=== PATIENT | female | born 1945 | race Two or more races ===

== ENCOUNTER 2020-02-12 08:03 | Outpatient (REF) | payer MEDICARE, SELFPAY ==
--- NOTE | 2020-02-12 07:59 | FL_ITS ---
EXAMINATION: FLUOROSCOPIC ESOPHAGRAM, BARIUM SWALLOW CLINICAL INFORMATION: Dysphagia. COMPARISON: None. TECHNIQUE: Swallowing examination of the cervical esophagus was performed in the AP and lateral positions with self administration of thick, high density barium. Following the self administration of effervescent granules, thoracic esophagography was performed with the patient in upright and recumbent positions with thin barium. A 12.7 mm barium tablet was also administered. FLUOROSCOPY TIME: 2 minutes. DOSE AREA PRODUCT: 10.542 Gy-cm2 (huynh-centimeter squared). FINDINGS: Pharynx and Cervical Esophagus: Examination demonstrates normal motility without stricturing, diverticula, or obstruction. No significant pooling of contrast material in the valleculae or piriform sinuses. No cricopharyngeal abnormalities are noted. The pharynx and cervical spine are normal in appearance. Thoracic Esophagus: Motility of the thoracic esophagus is slightly decreased during swallowing with a few low amplitude tertiary contractions. There is focal circumferential narrowing of the distal esophagus with smooth margins, best seen on image 5/14 of series 3. This occurs at the superior margin of a small hiatal hernia and may correspond to a Schatzki's ring. A pill does not pass distal to this narrowing. There was no evidence of esophageal mass or ulceration. There is no evidence of gastroesophageal reflux demonstrated on this exam. Negative water siphon test. IMPRESSION: Small sliding-type hiatal hernia with a smoothly marginated circumferential narrowing along its proximal margin, most likely corresponding to a Schatzki's ring. This prevented passage of a 12.7 cm barium tablet and likely produces symptomatic partial obstruction/delay in the passage of food.
== END 2020-02-12 08:04 | disposition home or self-care (01) ==
LOC: HO.XRAY 08:03
PROVIDERS: PCP Nurse Practitioner Family; Visit Provider Otolaryngology
DX: R13.10 Dysphagia, unspecified (principal)
CPT/HCPCS: 74220

== ENCOUNTER 2020-02-29 17:33 | Emergency (ER) | payer MEDICARE, SELFPAY ==
[2020-02-29 17:46] VITALS: BP 139/71; BP 141/53; PULSE 61; PULSE 66; RESP 16; TEMP 37.2; O2SAT 97; O2SAT 99; BMI 28.9
--- NOTE | 2020-02-29 18:17 | ECG_ITS ---
Test Reason : CHEST PAIN Blood Pressure : / mmHG Vent. Rate : 055 BPM Atrial Rate : 055 BPM P-R Int : 130 ms QRS Dur : 074 ms QT Int : 420 ms P-R-T Axes : 053 020 023 degrees QTc Int : 401 ms Sinus bradycardia Otherwise normal ECG When compared with ECG of 19-JAN-2020 16:53, No significant change was found Referred By: Thais Desai Electronically Signed By:HILDA STEWART MD
--- NOTE | 2020-02-29 18:18 | XR_ITS ---
EXAMINATION: XR chest 1V CLINICAL INFORMATION: Chest pain COMPARISON: Prior chest x-ray August 2018 TECHNIQUE: XR chest 1V Tubes and lines: None Lungs and Asha: Both lungs are clear. Pleura: Normal. Costophrenic angles are sharp. No pneumothorax. Heart and mediastinum: The mediastinum is within normal limits.. Bones: There are old left anterolateral fifth rib fracture. There are degenerative changes of AC joints and shoulders. XR/XR chest 1V IMPRESSION: Probably old left fifth rib fracture. 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
--- NOTE | 2020-02-29 18:20 | ED.GENADULT ---
HPI - General Adult General Chief complaint: General Medical Stated complaint: CHILLS/BODYACHE Time Seen by Provider: 02/29/20 17:48 Source: patient and certified court/medical interpreter History of Present Illness HPI narrative: patient is a 74-year-old female with past medical history of hypertension, asthma and BPPV complaining of headache, chest pain, shortness of breath for 30 minutes prior to arrival to ED. She also states she has chills and body aches for a few days. Patient states she has an inhaler and an albuterol nebulizer at home but she did not use either treatment before coming into the ED. Patient denies nausea vomiting diarrhea fevers. Denies cough, congestion or any URI symptoms. Patient states she has been eating and drinking normally. she states she typically takes meclizine for her dizziness but did not take it today but denies dizziness or lightheadedness. she states her chest pain is on the left central chest and usually radiates to her arm. She describes the pain as a burning sensation. Related Data Previous Rx's Medication Instructions Recorded sennosides 8.6 mg capsule 17.2 mg PO BEDTIME 30 Days #60 cap 02/17/20 Allergies Allergy/AdvReac Type Severity Reaction Status Date / Time codeine [CODEINE] Allergy Intermediate RASH Verified 02/29/20 17:53 ibuprofen [From MOTRIN] Allergy Intermediate RASH Verified 02/29/20 17:53 Penicillins [PENICILLINS] Allergy Intermediate RASH Verified 02/29/20 17:53 motrin Allergy Unknown rash, Uncoded 01/01/20 00:00 swelling PCN Allergy Unknown rash, Uncoded 01/01/20 00:00 swelling Review of Systems Review of Systems: Yes all other systems are reviewed and are negative [facility] Past Medical History Attestation statement: The following information was validated with the patient. Medical History (Updated 02/29/20 @ 21:46 by ROSIBEL Anderson) Asthma Kidney disease Social History Social History Advance Directives: Yes Advance Directives on File: Yes Advance Directives Date on File: 02/12/20 Physical Exam Vital Signs: Vital Signs: Vital Signs Temp Pulse Resp BP Pulse Ox 02/29/20 22:10 98.4 F 63 15 119/85 98 02/29/20 17:46 98.9 F 61 16 141/53 H 97 Body Mass Index 28.9 Const: General: cooperative, healthy appearing, comfortable and no acute distress Nutritional Appearance: obese Orientation/consciousness: patient oriented x3 Limitations: language barrier ( certified court/medical interpreter present) HENMT: Head: Yes normal to inspection Face and sinus: Yes normal facial exam Eyes: General: appearance normal, both eyes and all related structures Neck: Neck: Yes normal visual inspection, Yes full ROM, Yes trachea midline and Yes supple Resp: Effort & Inspection: normal respiratory effort and able to speak in complete sentences Auscultation: clear to auscultation bilaterally, no crackles, no rales, no rhonchi and no wheezes Cardio: Rate: regular rate Rhythm: regular rhythm Heart sounds: S1 normal heart sound present and S2 normal heart sound present GI: Inspection: Yes normal to inspection Palpation (GI): Soft to palpation, nontender, no guarding and No hepatosplenomegaly present Auscultation: normal bowel sounds Skin: General skin exam: no rashes or lesions noted Neuro: General: patient oriented x3 Extrem: General: Yes no pedal edema Psych: Appearance: grossly normal Course Course Course Narrative: this is a 74-year-old female with past medical history of asthma, BPPV and hypertension complaining of a headache, chest pain and shortness of breath x 1 hour. vital signs are stable including O2 sat of 98% on room air. patient is speaking in full sentences, breathing easily. Will get EKG, labs check troponins and reassess. labs WNL, EKG sinus shelly, troponin neg, patient reporting improved headache after Tylenol and fluids. Explained to patient she will get a phone call in the next couple of days with her COVID test result. likely viral syndrome. Medical Decision Making [facility] Narrative Medical decision making narrative: 74-year-old female complaining chest pain, headache, body aches, EKG sinus bradycardia, negative troponins, negative BNP, all labs WNL, covid pending. Will give fluids. Lab Data Lab results reviewed: Yes I reviewed the patient's lab results. Lab results narrative: UA negative Result diagrams: 02/29/20 19:46 02/29/20 19:46 Labs: Lab Results 02/29/20 02/29/20 02/29/20 Range/Units 19:46 19:46 19:46 WBC 10.3 (4.8-10.8) X10*3/uL RBC 4.17 L (4.20-5.50) X10*6/uL Hgb 12.8 (12.0-16.0) g/dl Hct 38.5 (37-47) % MCV 92.3 (80-98) fL MCH 30.7 (27.0-33.0) pg MCHC 33.2 (31.0-35.0) g/dl RDW 13.2 (11.0-16.0) % Plt Count 191 (160-400) X10*3/uL MPV 10.3 (9.4-12.3) fL Immature Gran % (Auto) 0.3 (0.0-0.4) % Neut % (Auto) 60.2 (45-73) % Lymph % (Auto) 28.6 (20-40) % Holmes % (Auto) 4.8 (2-11) % Eos % (Auto) 5.7 H (0-4) % Baso % (Auto) 0.4 (0-2) % Lymph # (Auto) 3.0 (1.2-4.9) X10*3/uL Holmes # (Auto) 0.5 (0.1-1.2) X10*3/uL Eos # (Auto) 0.6 H (0.0-0.4) X10*3/uL Baso # (Auto) 0.0 (0.0-0.2) X10*3/uL Abs Immat Gran (auto) 0.03 (0.00-0.03) X10*3/uL Absolute Neuts (auto) 6.2 (2.0-8.3) X10*3/uL Absolute Nucleated RBC 0.000 (0.0-0.012) X10*3/uL Nucleated RBC % (auto) 0.0 (0.0-0.2) /100WBC Hold Blue Top SEE NOTE Sodium 145 (135-145) mmol/L Potassium 4.2 (3.3-5.1) mmol/l Chloride 111 H (96-108) mmol/L Carbon Dioxide 28 (22-29) mmol/L Anion Gap 10 L (12-20) BUN 15 (9-16) mg/dL Creatinine 1.10 (0.5-1.4) mg/dL Estim Creat Clear Calc 38.9 Estimated GFR 49 Random Glucose 103 (60-115) mg/dL Calcium 8.2 L (8.4-10.2) mg/dL Troponin I High Sens (<3.5-17.0) ng/L B-Natriuretic Peptide (<100) pg/mL Urine Color Urine Appearance Urine pH (5.0-8.0) Ur Specific [place] (1.005-1.025) Urine Protein (NEG-TRACE) MG/DL Urine Glucose (UA) (NEG) MG/DL Urine Ketones (NEG) MG/DL Urine Blood (NEG) Urine Nitrite (NEG) Ur Leukocyte Esterase (NEG) 02/29/20 02/29/20 02/29/20 Range/Units 19:46 19:46 21:06 WBC (4.8-10.8) X10*3/uL RBC (4.20-5.50) X10*6/uL Hgb (12.0-16.0) g/dl Hct (37-47) % MCV (80-98) fL MCH (27.0-33.0) pg MCHC (31.0-35.0) g/dl RDW (11.0-16.0) % Plt Count (160-400) X10*3/uL MPV (9.4-12.3) fL Immature Gran % (Auto) (0.0-0.4) % Neut % (Auto) (45-73) % Lymph % (Auto) (20-40) % Holmes % (Auto) (2-11) % Eos % (Auto) (0-4) % Baso % (Auto) (0-2) % Lymph # (Auto) (1.2-4.9) X10*3/uL Holmes # (Auto) (0.1-1.2) X10*3/uL Eos # (Auto) (0.0-0.4) X10*3/uL Baso # (Auto) (0.0-0.2) X10*3/uL Abs Immat Gran (auto) (0.00-0.03) X10*3/uL Absolute Neuts (auto) (2.0-8.3) X10*3/uL Absolute Nucleated RBC (0.0-0.012) X10*3/uL Nucleated RBC % (auto) (0.0-0.2) /100WBC Hold Blue Top Sodium (135-145) mmol/L Potassium (3.3-5.1) mmol/l Chloride (96-108) mmol/L Carbon Dioxide (22-29) mmol/L Anion Gap (12-20) BUN (9-16) mg/dL Creatinine (0.5-1.4) mg/dL Estim Creat Clear Calc Estimated GFR Random Glucose (60-115) mg/dL Calcium (8.4-10.2) mg/dL Troponin I High Sens 6.2 (<3.5-17.0) ng/L B-Natriuretic Peptide 99 (<100) pg/mL Urine Color YELLOW Urine Appearance CLEAR Urine pH 7.5 (5.0-8.0) Ur Specific [place] 1.020 (1.005-1.025) Urine Protein NEG (NEG-TRACE) MG/DL Urine Glucose (UA) NEG (NEG) MG/DL Urine Ketones NEG (NEG) MG/DL Urine Blood NEG (NEG) Urine Nitrite NEG (NEG) Ur Leukocyte Esterase NEG (NEG) Imaging Data Chest x-ray: Attestation: I personally reviewed and interpreted this imaging study as follows: Radiologist's impression: IMPRESSION: Probably old left fifth rib fracture. 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 ECG Data Attestation: I personally reviewed and interpreted this ECG as follows: Interpretation: sinus bradycardia 55bpm, IA int 130ms, QRS duration 74ms, QTc 401ms, Dr Gonzalez signed EKG Discharge Plan Discharge Clinical Impression: Acute viral syndrome, Acute dehydration Patient Disposition: Home, Self-Care Instructions: Dehydration (ED), COVID-19 (Coronavirus Disease 2019) (ED) Prescriptions: No Action senna 8.6 mg capsule 17.2 mg PO BEDTIME 30 Days Qty: 60 RF: 1 Print Language: Korean
[2020-02-29 19:53] LABS: MANUAL DIFF FLAG NO
[2020-02-29 19:55] LABS: Basophils Percent Auto 0.4 % (0-2); Eosinophils Absolute Auto 0.6 X10*3/uL (0.0-0.4); Eosinophils Percent Auto 5.7 % (0-4); Hematocrit 38.5 % (37-47); Hemoglobin 12.8 g/dl (12.0-16.0); Imm Gran Abs Auto 0.03 X10*3/uL (0.00-0.03); Imm Gran Pct Auto 0.3 % (0.0-0.4); Lymphocytes Percent Auto 28.6 % (20-40); Mean Corpuscular HGB Conc 33.2 g/dl (31.0-35.0); Mean Corpuscular Hemoglobin 30.7 pg (27.0-33.0); Mean Corpuscular Volume 92.3 fL (80-98); Mean Platelet Volume 10.3 fL (9.4-12.3); Monocytes Absolute Auto 0.5 X10*3/uL (0.1-1.2); Monocytes Percent Auto 4.8 % (2-11); Neutrophils Absolute Auto 6.2 X10*3/uL (2.0-8.3); Neutrophils Percent Auto 60.2 % (45-73); Platelet Count 191 X10*3/uL (160-400); Red Blood Count 4.17 X10*6/uL (4.20-5.50); Red Cell Distribution Width 13.2 % (11.0-16.0); White Blood Count 10.3 X10*3/uL (4.8-10.8)
[2020-02-29 20:19] LABS: Anion Gap 10 (12-20); Blood Urea Nitrogen 15 mg/dL (9-16); Calcium 8.2 mg/dL (8.4-10.2); Carbon Dioxide 28 mmol/L (22-29); Chloride 111 mmol/L (96-108); Creatinine Clr Calc Pharmacy 38.9; Estimated Glomerular Filt Rate 49; Glucose Random 103 mg/dL (60-115); Potassium 4.2 mmol/l (3.3-5.1); Sodium 145 mmol/L (135-145)
[2020-02-29 20:25] LABS: B Type Natriuretic Peptide 99 pg/mL (<100); Troponin-I High Sensitivity 6.2 ng/L (<3.5-17.0)
[2020-02-29] MEDS: 0.9 % Sodium Chloride 1,000 ML 999 ML IVCONT (21:08)
[2020-02-29 21:15] LABS: Glucose Urine UA NEG (NEG); Leukocyte Esterase Urine NEG (NEG); Nitrite Urine NEG (NEG); PH 7.5 (5.0-8.0); Urine Blood NEG (NEG); Urine Ketones NEG (NEG); Urine Protein NEG (NEG-TRACE)
[2020-02-29] MEDS: Acetaminophen 325 MG TABLET 650 MG PO (21:16)
[2020-02-29 21:17] LABS: Appearance Urine CLEAR; Color Urine YELLOW
--- NOTE | 2020-02-29 21:18 | PC.NURSE ---
pt medicated with tylenol per order
[2020-02-29 22:10] VITALS: BP 119/85; PULSE 63; RESP 15; TEMP 36.9; O2SAT 98
== END 2020-02-29 23:13 | disposition home or self-care (01) ==
PROVIDERS: Physician Assistant; Emergency Provider Emergency Medicine
DX: B34.9 Viral infection, unspecified (principal); E86.0 Dehydration; R06.02 Shortness of breath; Z79.899 Other long term (current) drug therapy; Z20.828 Contact with and (suspected) exposure to other viral communicable diseases
CPT/HCPCS: 36415; 71045; 80048; 81003; 83880; 84484; 85025; 87635; 93005; 96360; 99284

== ENCOUNTER 2020-05-27 08:02 | Outpatient (REF) | payer MEDICARE, SELFPAY ==
[2020-05-27 08:34] LABS: MANUAL DIFF FLAG NO
[2020-05-27 08:38] LABS: Basophils Absolute Auto 0.1 X10*3/uL (0.0-0.2); Basophils Percent Auto 0.6 % (0-2); Eosinophils Absolute Auto 0.4 X10*3/uL (0.0-0.4); Eosinophils Percent Auto 4.5 % (0-4); Hemoglobin 14.2 g/dl (12.0-16.0); Imm Gran Abs Auto 0.01 X10*3/uL (0.00-0.03); Imm Gran Pct Auto 0.1 % (0.0-0.4); Lymphocytes Absolute Auto 2.2 X10*3/uL (1.2-4.9); Lymphocytes Percent Auto 27.4 % (20-40); Mean Corpuscular Hemoglobin 30.6 pg (27.0-33.0); Mean Corpuscular Volume 92.7 fL (80-98); Mean Platelet Volume 10.4 fL (9.4-12.3); Monocytes Absolute Auto 0.4 X10*3/uL (0.1-1.2); Monocytes Percent Auto 5.5 % (2-11); Neutrophils Absolute Auto 4.9 X10*3/uL (2.0-8.3); Neutrophils Percent Auto 61.9 % (45-73); Platelet Count 233 X10*3/uL (160-400); Red Blood Count 4.64 X10*6/uL (4.20-5.50); Red Cell Distribution Width 12.1 % (11.0-16.0)
[2020-05-27 08:47] LABS: Appearance Urine CLEAR; Color Urine YELLOW; Glucose Urine UA NEG (NEG); Leukocyte Esterase Urine NEG (NEG); Nitrite Urine NEG (NEG); PH 6.5 (5.0-8.0); Specific Gravity - Urine 1.015 (1.005-1.025); Urine Blood TRACE (NEG); Urine Ketones NEG (NEG); Urine Protein NEG (NEG-TRACE)
[2020-05-27 09:02] LABS: Bacteria Urine 2+ /LPF; Squamous Epithelial Cell Urine 2+ /LPF
[2020-05-27 09:04] LABS: Renal w Reflex-LAB USE ONLY Order Verified
[2020-05-27 09:11] LABS: Albumin Level 4.1 g/dL (3.5-5.0); Anion Gap 11 (12-20); Blood Urea Nitrogen 11 mg/dL (9-16); Calcium 8.8 mg/dL (8.4-10.2); Carbon Dioxide 27 mmol/L (22-29); Chloride 109 mmol/L (96-108); Estimated Glomerular Filt Rate 53; Magnesium 2.2 mg/dL (1.6-2.6); Phosphorus 3.4 mg/dL (2.7-4.5); Potassium 4.5 mmol/l (3.3-5.1); Sodium 142 mmol/L (135-145)
[2020-05-27 09:24] LABS: Vitamin D 25-OH Total 12.6 ng/mL (>30)
[2020-05-27 09:27] LABS: Microalbum/Creatinine Ratio Ur 11.5 ug/mg cr
[2020-05-27 09:43] LABS: Total Protein Urine Random < 7 mg/dL (<12)
[2020-05-27 10:30] LABS: Renal w Reflex Lab Use Only Order verified
== END 2020-05-27 08:03 | disposition home or self-care (01) ==
LOC: HO.LAB 08:02
PROVIDERS: PCP Family Medicine; Visit Provider Internal Medicine Nephrology
DX: I12.9 Hypertensive chronic kidney disease with stage 1 through stage 4 chronic kidney disease, or unspecified chronic kidney disease (principal); N18.2 Chronic kidney disease, stage 2 (mild)
CPT/HCPCS: 36415; 80051; 81001; 82040; 82043; 82306; 82310; 82565; 83735; 84100; 84156; 84520; 85025

== ENCOUNTER 2020-10-06 10:24 | Outpatient (REF) | payer MEDICARE, SELFPAY | END 2020-10-06 10:25 | disposition home or self-care (01) | LOC: HO.LAB 10:24 | PROVIDERS: Visit Provider Internal Medicine | DX: Z20.822 Contact with and (suspected) exposure to COVID-19 (principal) | CPT/HCPCS: C9803; U0003; U0005 ==

== ENCOUNTER 2021-01-28 09:57 | Outpatient (REF) | payer MEDICARE, SELFPAY ==
--- NOTE | ~2021-01-28 | XR_ITS ---
EXAMINATION: XR HIP, RIGHT CLINICAL INFORMATION: 75-year-old female patient with pain in the right leg. COMPARISON: None TECHNIQUE: AP and frog leg lateral views of the right hip. FINDINGS: Bones and soft tissues are normal. No fracture. Alignment is anatomic. Hip joint space is maintained. There is evidence of bony spur formation arising from the roof of the right acetabulum and enthesopathy of the right iliac bone along the iliac crest and also anterior superior iliac spine. XR/XR hip RT min 2V IMPRESSION: The hip joint is relatively well-preserved. Enthesopathy arising from the iliac bone.
== END 2021-01-28 09:58 | disposition home or self-care (01) ==
LOC: HO.XRAY 09:57
PROVIDERS: PCP Family Medicine; Visit Provider Family Medicine
DX: M79.604 Pain in right leg (principal); I73.9 Peripheral vascular disease, unspecified
CPT/HCPCS: 73502

== ENCOUNTER → 2021-02-25 08:37 | Outpatient (BNVA) | payer MEDICARE, SELFPAY | PROVIDERS: PCP Family Medicine; Visit Provider Physician Assistant | DX: M76.31 Iliotibial band syndrome, right leg (principal); M17.11 Unilateral primary osteoarthritis, right knee; Z88.6 Allergy status to analgesic agent; Z88.0 Allergy status to penicillin; Z88.8 Allergy status to other drugs, medicaments and biological substances | CPT/HCPCS: 99202 ==

== ENCOUNTER 2021-03-25 10:00 | Outpatient (RCR) | payer MEDICARE, SELFPAY | END 2021-03-25 11:35 | disposition home or self-care (01) | LOC: HO.PT 10:00 | PROVIDERS: PCP Family Medicine; Visit Provider Family Medicine | DX: M79.604 Pain in right leg (principal) | CPT/HCPCS: 97110; 97140; 97162 ==

== ENCOUNTER → 2021-04-07 09:27 | Outpatient (BNVA) | payer MEDICARE, SELFPAY | PROVIDERS: Visit Provider Physician Assistant | DX: M70.61 Trochanteric bursitis, right hip (principal) | CPT/HCPCS: 20610; 99212; J1040 ==

== ENCOUNTER 2021-04-28 10:51 | Outpatient (REF) | payer MEDICARE, SELFPAY ==
--- NOTE | ~2021-04-28 | US_ITS ---
EXAMINATION: ANKLE-BRACHIAL INDICES AND SINGLE LEVEL PULSE VOLUME RECORDING BILATERAL LOWER EXTREMITIES CLINICAL INFORMATION: Peripheral vascular disease COMPARISON: None TECHNIQUE: Ankle-brachial indices and single level pulse volume recordings bilateral lower extremities. FINDINGS: Right: RIDGE: 0.77 Ankle PVR: Mildly abnormal. Left: RIDGE 0.99 Ankle PVR: Normal. US/US RIDGE complete IMPRESSION: On the right, the RIDGE is consistent with mild peripheral vascular disease. The pulse volume recording is mildly abnormal. On the left, no evidence of peripheral arterial disease by RIDGE and PVR.
== END 2021-04-28 10:52 | disposition home or self-care (01) ==
LOC: HO.US 10:51
PROVIDERS: PCP Family Medicine; Visit Provider Family Medicine
DX: I73.9 Peripheral vascular disease, unspecified (principal)
CPT/HCPCS: 93923

== ENCOUNTER → 2021-10-10 12:41 | Outpatient (BNVA) | payer MEDICARE, SELFPAY | PROVIDERS: PCP Family Medicine; Visit Provider Physician Assistant | DX: M70.61 Trochanteric bursitis, right hip (principal) | CPT/HCPCS: 20610; 99212; J1040 ==

== ENCOUNTER 2022-03-21 07:20 | Outpatient (REF) | payer OTHER, SELFPAY ==
--- NOTE | ~2022-03-21 | XR_ITS ---
EXAMINATION: XR KNEE, RIGHT XR KNEE, LEFT CLINICAL INFORMATION: Bilateral knee pain. COMPARISON: Radiographs left knee 04/20/2015, right knee 05/27/2016 TECHNIQUE: Each knee is imaged in standing AP and lateral view. There are a total of 4 views, 2 on each side. FINDINGS: Right: No fracture, dislocation, or definite suprapatellar effusion. No joint narrowing or erosive change or chondrocalcinosis. There is spurring at the quadriceps insertion patella and spurring at the patellar tendon insertion proximal anterior tibia. Deep infrapatellar recess is preserved. There is short oval ossification adjacent to the superior medial medial femoral condyle which may be related to sequela from remote proximal MCL injury. Left: No fracture, dislocation, or suprapatellar effusion. No joint narrowing or erosive change or chondrocalcinosis. There is spurring at the quadriceps insertion patella and spurring at the patellar tendon insertion proximal anterior tibia. Deep infrapatellar recess is preserved. XR/XR knee LT 2V IMPRESSION: Right: -Spurring at quadriceps insertion patella and patellar tendon insertion proximal anterior tibia. -No joint narrowing or erosive change or definite effusion. -Mineralization in region of proximal MCL, possibly sequela from remote MCL injury. Left: -Spurring at quadriceps insertion patella and patellar tendon insertion proximal anterior tibia. -No joint narrowing or erosive change or effusion.
--- NOTE | ~2022-03-21 | XR_ITS ---
EXAMINATION: XR KNEE, RIGHT XR KNEE, LEFT CLINICAL INFORMATION: Bilateral knee pain. COMPARISON: Radiographs left knee 04/20/2015, right knee 05/27/2016 TECHNIQUE: Each knee is imaged in standing AP and lateral view. There are a total of 4 views, 2 on each side. FINDINGS: Right: No fracture, dislocation, or definite suprapatellar effusion. No joint narrowing or erosive change or chondrocalcinosis. There is spurring at the quadriceps insertion patella and spurring at the patellar tendon insertion proximal anterior tibia. Deep infrapatellar recess is preserved. There is short oval ossification adjacent to the superior medial medial femoral condyle which may be related to sequela from remote proximal MCL injury. Left: No fracture, dislocation, or suprapatellar effusion. No joint narrowing or erosive change or chondrocalcinosis. There is spurring at the quadriceps insertion patella and spurring at the patellar tendon insertion proximal anterior tibia. Deep infrapatellar recess is preserved. XR/XR knee RT 2V IMPRESSION: Right: -Spurring at quadriceps insertion patella and patellar tendon insertion proximal anterior tibia. -No joint narrowing or erosive change or definite effusion. -Mineralization in region of proximal MCL, possibly sequela from remote MCL injury. Left: -Spurring at quadriceps insertion patella and patellar tendon insertion proximal anterior tibia. -No joint narrowing or erosive change or effusion.
[2022-03-21 07:31] LABS: MANUAL DIFF FLAG NO
[2022-03-21 08:20] LABS: Basophils Absolute Auto 0.1 X10*3/uL (0.0-0.2); Basophils Percent Auto 0.6 % (0-2); Eosinophils Absolute Auto 0.4 X10*3/uL (0.0-0.4); Eosinophils Percent Auto 5.4 % (0-4); Hematocrit 41.3 % (37.0-47.0); Hemoglobin 13.6 g/dl (12.0-16.0); Imm Gran Abs Auto 0.02 X10*3/uL (0.00-0.03); Imm Gran Pct Auto 0.2 % (0.0-0.4); Lymphocytes Absolute Auto 1.5 X10*3/uL (1.2-4.9); Lymphocytes Percent Auto 18.4 % (20-40); Mean Corpuscular HGB Conc 32.9 g/dl (31.0-35.0); Mean Platelet Volume 10.3 fL (9.4-12.3); Monocytes Absolute Auto 0.4 X10*3/uL (0.1-1.2); Monocytes Percent Auto 5.3 % (2-11); Neutrophils Absolute Auto 5.7 x10*3/uL (2.0-8.3); Neutrophils Percent Auto 70.1 % (45-73); Platelet Count 281 X10*3/uL (160-400); Red Blood Count 4.54 X10*6/uL (4.20-5.50); Red Cell Distribution Width 12.9 % (11.0-16.0); White Blood Count 8.1 X10*3/uL (4.8-10.8)
[2022-03-21 08:48] LABS: Alanine Aminotransferase 10 U/L (0-31); Alkaline Phosphatase 104 U/L (39-117); Anion Gap 13 (12-20); Aspartate Amino Transferase 15 U/L (5-31); Bilirubin Total 0.2 mg/dL (0.0-1.0); Blood Urea Nitrogen 10 mg/dL (9-16); Calcium 9.2 mg/dL (8.4-10.2); Carbon Dioxide 27 mmol/L (22-29); Chloride 105 mmol/L (96-108); Estimated Glomerular Filt Rate 49; Glucose Random 95 mg/dL (60-115); Potassium 4.2 mmol/L (3.3-5.1); Rheumatoid Factor < 15.0 IU/mL (<15.0); Sodium 141 mmol/L (135-145); Total Protein 7.3 g/dL (6.5-8.0)
[2022-03-21 08:49] LABS: Estimated Average Glucose 103 mg/dL; Hemoglobin A1c % 5.2 %
[2022-03-21 09:05] LABS: HIV AB/AG Nonreactive (Nonreactive); HIV Num 1 0.21 S/CO (0.00-0.99)
[2022-03-21 09:16] LABS: Thyroid Stimulating Hormone 1.97 uIU/mL (0.32-4.0)
[2022-03-21 09:22] LABS: Folate 10.5 ng/mL (> or = 4.0); Vitamin B12 206 pg/mL (200-900)
[2022-03-22 07:12] LABS: Syphilis Screen Nonreactive (Nonreactive)
[2022-03-22 17:56] LABS: Anti DNA DS Antibody 5 IU/mL
[2022-03-24 23:03] LABS: Myoglobin,Serum <30 mcg/L (<=66)
[2022-03-26 11:52] LABS: Anti Nuclear Antibody Screen NEGATIVE (NEGATIVE)
== END 2022-03-21 07:21 | disposition home or self-care (01) ==
LOC: HO.XRAY 07:20
PROVIDERS: PCP Family Medicine; Visit Provider Family Medicine
DX: M25.562 Pain in left knee (principal); M25.561 Pain in right knee; R29.898 Other symptoms and signs involving the musculoskeletal system
CPT/HCPCS: 36415; 73560; 80053; 82607; 82746; 83036; 83874; 84443; 85025; 86038; 86039; 86225; 86431; 86780; 87389

== ENCOUNTER 2022-08-09 12:53 | Outpatient (REF) | payer OTHER, SELFPAY ==
[2022-08-09 14:20] LABS: Erythrocyte Sedimentation Rate 25 MM/HR (0-20)
[2022-08-11 08:28] LABS: Lyme Abs Screen <0.90 index
[2022-08-15 15:13] LABS: DNAds, Crithidia Antibody Negative (Negative)
== END 2022-08-09 12:54 | disposition home or self-care (01) ==
LOC: HO.LAB 12:53
PROVIDERS: PCP Family Medicine; Visit Provider Psychiatry & Neurology Neurology
DX: G62.9 Polyneuropathy, unspecified (principal)
CPT/HCPCS: 36415; 82550; 85652; 86255; 86617; 86618

== ENCOUNTER 2022-09-30 11:22 | Emergency (ER) | payer OTHER, SELFPAY ==
--- NOTE | ~2022-09-30 | XR_ITS ---
EXAMINATION: XR ABDOMEN KUB CLINICAL INDICATION: Patient spitting up, constipation. COMPARISON: None available. TECHNIQUE: AP view of the abdomen. FINDINGS: There is a nonobstructive bowel gas pattern. Mild gas and stool seen within the colon distally to the rectum. Surgical clips are seen in the right upper lobe. Mild degenerative changes are seen in the thoracolumbar spine and hips bilaterally. The soft tissues are unremarkable. XR/XR KUB IMPRESSION: Nonobstructive bowel gas pattern. Mild colonic stool burden.
--- NOTE | ~2022-09-30 | XR_ITS ---
EXAMINATION: XR CHEST CLINICAL INFORMATION: Cough. COMPARISON: 02/29/2020 chest radiograph. TECHNIQUE: Frontal view of the chest was obtained. FINDINGS: No significant abnormality is noted involving the heart, lungs, mediastinum, bony thorax or soft tissues. XR/XR chest 1V IMPRESSION: No acute cardiopulmonary process.
--- NOTE | ~2022-09-30 | CT_ITS ---
EXAMINATION: CT ABDOMEN AND PELVIS WITHOUT CONTRAST CLINICAL INFORMATION: Left-sided pain COMPARISON: CT abdomen pelvis 12/17/2015. TECHNIQUE: Multidetector volumetric imaging was performed from the superior aspect of the liver through the pubic symphysis. Sagittal and coronal reformatted images were obtained on the technologist's workstation. This CT examination was performed using dose optimization techniques as appropriate, variously including the following: *Automated exposure control *Adjustment of mA and/or kV according to patient size (this includes techniques or standardized protocols for targeted exams where dose is matched to indication/reason for exam; i.e. extremities or head) *Use of iterative reconstruction technique DLP: 438 mGy-cm FINDINGS: LUNG BASES: The visualized lung bases are unremarkable. LIVER, GALLBLADDER, AND BILIARY TREE: The liver is normal in size, shape, and attenuation. No focal hepatic lesion or biliary ductal dilatation is present. The gallbladder has been surgically removed.. PANCREAS: The pancreas mildly atrophic. SPLEEN: Unremarkable. ADRENAL GLANDS: Unremarkable. KIDNEYS AND URETERS: The kidneys are normal in size, shape, and attenuation. No hydronephrosis, hydroureter, or calculi seen. No perinephric stranding. BLADDER: Unremarkable. GASTROINTESTINAL TRACT: There is scattered stool, diverticula and gas seen throughout the colon without distention. The small bowel loops are unremarkable. Appendix is normal caliber. The stomach is nondistended with a small diverticulum in the second segment of duodenum. No free air or free fluid seen. ABDOMINAL WALL: No significant hernia is appreciated. LYMPH NODES: Normal. VASCULAR: Unremarkable. PELVIC VISCERA: The uterus is anteverted and appears unremarkable. No adnexal mass, free fluid or abnormal size lymph nodes seen. OSSEOUS STRUCTURES: There is mild ventral spondylosis L1-L2 and L2-L2 disc levels. CT/CT abdomen pelvis wo IV con IMPRESSION: 1. No acute intra-abdominal process seen. 2. Scattered colonic diverticulosis without diverticulitis. Mild constipation. Fleischner guidelines were followed.
[2022-09-30 11:25] VITALS: BP 144/90; PULSE 68; RESP 18; TEMP 36.9; O2SAT 98; BMI 28.5
[2022-09-30 12:24] LABS: MANUAL DIFF FLAG NO
[2022-09-30 12:28] LABS: Basophils Percent Auto 0.3 % (0-2); Eosinophils Absolute Auto 0.5 X10*3/uL (0.0-0.4); Eosinophils Percent Auto 5.4 % (0-4); Hematocrit 38.5 % (37.0-47.0); Hemoglobin 12.9 g/dl (12.0-16.0); Imm Gran Abs Auto 0.01 X10*3/uL (0.00-0.03); Imm Gran Pct Auto 0.1 % (0.0-0.4); Lymphocytes Absolute Auto 2.7 X10*3/uL (1.2-4.9); Lymphocytes Percent Auto 28.6 % (20-40); Mean Corpuscular HGB Conc 33.5 g/dl (31.0-35.0); Mean Corpuscular Hemoglobin 29.5 pg (27.0-33.0); Mean Corpuscular Volume 87.9 fL (80.0-98.0); Mean Platelet Volume 9.7 fL (9.4-12.3); Monocytes Absolute Auto 0.5 X10*3/uL (0.1-1.2); Monocytes Percent Auto 5.6 % (2-11); Neutrophils Absolute Auto 5.6 x10*3/uL (2.0-8.3); Platelet Count 289 X10*3/uL (160-400); Red Blood Count 4.38 X10*6/uL (4.20-5.50); Red Cell Distribution Width 12.3 % (11.0-16.0); White Blood Count 9.3 X10*3/uL (4.8-10.8)
[2022-09-30 12:33] VITALS: BP 137/45; PULSE 60; RESP 18; TEMP 37; O2SAT 99
[2022-09-30 12:43] LABS: Alanine Aminotransferase 8 U/L (0-31); Albumin Level 3.9 g/dL (3.5-5.0); Alkaline Phosphatase 96 U/L (39-117); Anion Gap 11 (12-20); Aspartate Amino Transferase 16 U/L (5-31); Bilirubin Total 0.5 mg/dL (0.0-1.0); Blood Urea Nitrogen 8 mg/dL (9-16); Calcium 9.5 mg/dL (8.4-10.2); Carbon Dioxide 29 mmol/L (22-29); Chloride 109 mmol/L (96-108); Creatinine Clr Calc Pharmacy 40.2; Estimated Glomerular Filt Rate 53; Glucose Random 96 mg/dL (60-115); Lipase 20 U/L (8-78); Magnesium 2.3 mg/dL (1.6-2.6); Potassium 4.7 mmol/L (3.3-5.1); Sodium 144 mmol/L (135-145); Total Protein 7.2 g/dL (6.5-8.0)
[2022-09-30 12:48] LABS: Appearance Urine Cloudy; Color Urine Yellow; Glucose Urine UA Negative (Negative); Leukocyte Esterase Urine Small (1+) (Negative); Nitrite Urine Negative (Negative); PH 6.5 (5.0-9.0); UMIC TRIGGER UACC YES; Urine Blood Negative (Negative); Urine Ketones Negative (Negative); Urine Protein Negative (Neg-Trace)
[2022-09-30 12:53] LABS: Bacteria Urine 3+ (None Seen); Hyaline Casts Urine 0-2 /LPF (0-2); RBC Urine 0-2 /HPF (0-2); UACC Culture Trigger YES
--- NOTE | 2022-09-30 13:17 | ED.ABDPAIN ---
HPI - Abdominal Pain General Chief Complaint: Abdominal Pain Stated Complaint: abd pain Time Seen by Provider: 09/30/22 12:59 Source: patient Mode of arrival: ambulatory Limitations: no limitations History of Present Illness HPI narrative: Patient history of chronic constipation been having pain left upper abdomen associated with nausea and vomiting for last few days last bowel movement was 3 days ago also complaining of cough with thick sputum no fever no chills no abdominal distension no history of kidney stone no urinary symptoms Related Data Home Medications Medication Instructions Recorded Confirmed albuterol sulfate 2.5 mg/3 mL mg inhalation 10/10/21 (0.083 %) solution for nebulization albuterol sulfate 90 mcg/actuation 0 mcg inhalation 10/10/21 aerosol inhaler atorvastatin 80 mg tablet 80 mg PO QPM 10/10/21 cholecalciferol (vitamin D3) 125 125 mcg PO DAILY 10/10/21 mcg (5,000 unit) tablet cyanocobalamin (vitamin B-12) 0 mcg PO 10/10/21 1,000 mcg tablet diclofenac sodium 1 % topical gel g topical 10/10/21 furosemide 20 mg tablet 20 mg PO DAILY 10/10/21 loratadine 10 mg tablet 10 mg PO DAILY 10/10/21 omeprazole 20 mg capsule,delayed 20 mg PO DAILY 10/10/21 release Previous Rx's Medication Instructions Recorded sennosides 8.6 mg tablet (senna) 17.2 mg PO BEDTIME for 04/22/20 constipation #60 tabs dicyclomine 20 mg tablet 20 mg PO QID PRN abdominal pain 09/30/22 #20 tabs ondansetron 4 mg disintegrating 4 mg PO Q6-8H PRN nausea and 09/30/22 tablet vomiting #7 tabs Allergies Allergy/AdvReac Type Severity Reaction Status Date / Time codeine [CODEINE] Allergy Intermediate RASH Verified 10/10/21 13:03 ibuprofen [From MOTRIN] Allergy Intermediate RASH Verified 10/10/21 13:03 Penicillins [PENICILLINS] Allergy Intermediate RASH Verified 10/10/21 13:03 motrin Allergy Unknown rash, Uncoded 10/10/21 13:03 swelling PCN Allergy Unknown rash, Uncoded 10/10/21 13:03 swelling Review of Systems Review of Systems Yes all other systems are reviewed and are negative PMFSH Past Medical History Medical History Asthma Kidney disease Social History Social History Advance Directives: Yes Advance Directives on File: Yes Advance Directives Date on File: 02/12/20 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al status: disabled 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: r handed Physical Exam ED Vital Signs: Vital Signs - 24 hr 09/30/22 11:25 09/30/22 12:33 09/30/22 15:16 Temperature 98.4 F 98.6 F 98.1 F Pulse Rate 68 60 57 Respiratory Rate 18 18 16 Blood Pressure 144/90 H 137/45 L 148/70 H Pulse Oximetry 98 99 98 Oxygen Delivery Method Room Air Room Air Room Air BMI result Body Mass Index 28.5 Appearance: Alert. Oriented X3. No acute distress. Eyes: PERRLA, No Nystagmus ENT: Pharynx normal. Oral Mucosa moist Neck: Normal inspection. Neck supple. CVS: Normal heart rate and rhythm. Pulses normal. Respiratory: No respiratory distress. Equal air entry bilateral, no wheezing/rales/rhonchi Abdomen: Soft , mild tenderness left upper abdomen Bowel sounds are present, no mass palpable, no CVA tenderness Skin: Skin warm and dry. Normal skin color. Normal skin turgor. Extremities: No lower extremity edema. No calf tenderness Neuro: Oriented X 3. No motor deficit. Medical Decision Making Medical Decision Making [facility] Narrative: Patient workup shows an CT scan abdomen is negative for acute chest x-ray negative patient does have this chronic abdominal complaints likely IBS discharge patient home on Bentyl Lab Data [facility] Lab Attestation statement: I reviewed the patient's lab results. 09/30/22 12:19 09/30/22 12:19 Labs: Lab Results 09/30/22 09/30/22 09/30/22 Range/Units 12:19 12:19 12:41 WBC 9.3 (4.8-10.8) X10*3/uL RBC 4.38 (4.20-5.50) X10*6/uL Hgb 12.9 (12.0-16.0) g/dl Hct 38.5 (37.0-47.0) % MCV 87.9 (80.0-98.0) fL MCH 29.5 (27.0-33.0) pg MCHC 33.5 (31.0-35.0) g/dl RDW 12.3 (11.0-16.0) % Plt Count 289 (160-400) X10*3/uL MPV 9.7 (9.4-12.3) fL Immature Gran % (Auto) 0.1 (0.0-0.4) % Neut % (Auto) 60.0 (45-73) % Lymph % (Auto) 28.6 (20-40) % Coleman % (Auto) 5.6 (2-11) % Eos % (Auto) 5.4 H (0-4) % Baso % (Auto) 0.3 (0-2) % Lymph # (Auto) 2.7 (1.2-4.9) X10*3/uL Coleman # (Auto) 0.5 (0.1-1.2) X10*3/uL Eos # (Auto) 0.5 H (0.0-0.4) X10*3/uL Baso # (Auto) 0.0 (0.0-0.2) X10*3/uL Abs Immat Gran (auto) 0.01 (0.00-0.03) X10*3/uL Absolute Neuts (auto) 5.6 (2.0-8.3) x10*3/uL Absolute Nucleated RBC 0.000 (0.0-0.012) X10*3/uL Nucleated RBC % (auto) 0.0 (0.0-0.2) /100WBC Sodium 144 (135-145) mmol/L Potassium 4.7 (3.3-5.1) mmol/L Chloride 109 H (96-108) mmol/L Carbon Dioxide 29 (22-29) mmol/L Anion Gap 11 L (12-20) BUN 8 L (9-16) mg/dL Creatinine 1.01 (0.5-1.4) mg/dL Estim Creat Clear Calc 40.2 Estimated GFR 53 Random Glucose 96 (60-115) mg/dL Calcium 9.5 (8.4-10.2) mg/dL Magnesium 2.3 (1.6-2.6) mg/dL Total Bilirubin 0.5 (0.0-1.0) mg/dL AST 16 (5-31) U/L ALT 8 (0-31) U/L Alkaline Phosphatase 96 (39-117) U/L Total Protein 7.2 (6.5-8.0) g/dL Albumin 3.9 (3.5-5.0) g/dL Lipase 20 (8-78) U/L Urine Color Yellow Urine Appearance Cloudy Urine pH 6.5 (5.0-9.0) Ur Specific [place] 1.010 (1.005-1.025) Urine Protein Negative (Neg-Trace) mg/dL Urine Glucose (UA) Negative (Negative) mg/dL Urine Ketones Negative (Negative) mg/dL Urine Blood Negative (Negative) Urine Nitrite Negative (Negative) Ur Leukocyte Esterase Small (1+) H (Negative) Urine RBC 0-2 (0-2) /HPF Urine WBC 11-20 H (0-5) /HPF Ur Squamous Epith Cells 11-20 (0-2) /HPF Urine Bacteria 3+ (None Seen) Hyaline Casts 0-2 (0-2) /LPF Medications Administered Discontinued Medications Generic Name Dose Route Start Last Admin Trade Name Freq PRN Reason Stop Dose Admin Dicyclomine HCl 10 mg 09/30/22 13:17 09/30/22 13:30 Dicyclomine Hcl 10 Mg Capsule PO 09/30/22 13:18 10 mg ONCE ONE Administration Ondansetron HCl 4 mg 09/30/22 13:17 09/30/22 13:30 Ondansetron Odt 4 Mg Tab.Rapdis TRANSLINGU 09/30/22 13:18 4 mg ONCE ONE Administration Discharge Plan Discharge Clinical Impression: Irritable bowel syndrome Patient Disposition: Home, Self-Care Instructions: Irritable Bowel Syndrome (ED) Additional Instructions: Drink plenty of fluid Medicine for nausea Bentyl for abdominal pain Follow with PCP if not better Prescriptions: New dicyclomine 20 mg tablet 20 mg PO QID PRN (Reason: abdominal pain) Qty: 20 0RF ondansetron 4 mg tablet,disintegrating 4 mg PO Q6-8H PRN (Reason: nausea and vomiting) Qty: 7 0RF No Action sennosides [senna] 8.6 mg tablet 17.2 mg PO BEDTIME Qty: 60 1RF furosemide 20 mg tablet 20 mg PO DAILY albuterol sulfate 90 mcg/actuation HFA aerosol inhaler 0 mcg inhalation cyanocobalamin (vitamin B-12) 1,000 mcg tablet 0 mcg PO albuterol sulfate 2.5 mg /3 mL (0.083 %) solution for nebulization inhalation atorvastatin 80 mg tablet 80 mg PO QPM omeprazole 20 mg capsule,delayed release(DR/EC) 20 mg PO DAILY cholecalciferol (vitamin D3) 125 mcg (5,000 unit) tablet 125 mcg PO DAILY loratadine 10 mg tablet 10 mg PO DAILY diclofenac sodium 1 % gel topical
[2022-09-30] MEDS: Dicyclomine HCl 10 MG CAPSULE PO (13:30)
[2022-09-30] MEDS: Ondansetron ODT 4 MG TAB.RAPDIS TRANSLINGU (13:30)
[2022-09-30 15:16] VITALS: BP 148/70; PULSE 57; RESP 16; TEMP 36.7; O2SAT 98
== END 2022-09-30 16:24 | disposition home or self-care (01) ==
PROVIDERS: Physician Assistant Medical; Emergency Provider Internal Medicine; PCP Family Medicine
DX: N39.0 Urinary tract infection, site not specified (principal); B96.20 Unspecified Escherichia coli [E. coli] as the cause of diseases classified elsewhere; R11.2 Nausea with vomiting, unspecified; Z79.02 Long term (current) use of antithrombotics/antiplatelets; Z79.899 Other long term (current) drug therapy
CPT/HCPCS: 36415; 71045; 74018; 74176; 80053; 81001; 83690; 83735; 85025; 87086; 87088; 87186; 99284

== ENCOUNTER 2022-11-25 10:34 | Inpatient (IN) | payer OTHER, SELFPAY ==
[2022-11-25] VITALS (7 sets, daily range): BP systolic 93–124; BP diastolic 49–65; PULSE 65–91; RESP 16–18; TEMP 36.1–36.7; O2SAT 95–99; BMI 23.3; BMI 23.2
--- NOTE | ~2022-11-25 | CT_ITS ---
EXAMINATION: CT ABDOMEN AND PELVIS WITH CONTRAST CLINICAL INFORMATION: Abdominal pain. COMPARISON: CT scan of the abdomen and pelvis dated 09/30/2022 and 12/17/2015. TECHNIQUE: Multidetector CT volumetric acquisition of the abdomen and pelvis was performed after the administration of 85 and mL of intravenous Omnipaque 350. The data set was reformatted in the sagittal and coronal planes and reviewed on an independent workstation. This CT examination was performed using dose optimization techniques as appropriate, variously including the following: *Automated exposure control *Adjustment of mA and/or kV according to patient size (this includes techniques or standardized protocols for targeted exams where dose is matched to indication/reason for exam; i.e. extremities or head) *Use of iterative reconstruction technique DLP: 407 mGy-cm. FINDINGS: LOWER CHEST: Included lung bases unremarkable. LIVER, GALLBLADDER, BILIARY TREE: Liver normal size and attenuation. No focal cystic or solid mass or intra-or extrahepatic ductal dilatation. Hepatic and portal veins patent. Postcholecystectomy bear are seen in the gallbladder fossa. PANCREAS: Diffuse fatty atrophy of the pancreas is seen. No ductal dilatation, mass, or surrounding stranding. SPLEEN: Normal size and appearance. Splenic vein patent. 1.2 x 1.6 cm accessory splenule seen along the inferior margin of the spleen. ADRENAL GLANDS AND KIDNEYS: Adrenal glands normal. Kidneys bilaterally symmetric in size and function. There are multiple tiny sub one half centimeter sized low-attenuation masses seen in the kidneys bilaterally, too small to characterize and not clearly appreciated on the previous noncontrast study from 2022 and 2015, but statistically most likely tiny cysts. No hydronephrosis, nephrolithiasis or perinephric stranding. URETERS AND BLADDER: Ureters decompressed and within normal limits. Bladder partially distended and within normal limits. PELVIC ORGANS: Unremarkable. GASTROINTESTINAL TRACT/LYMPHATIC STRUCTURES: There is diffuse wall thickening and enhancement of the stomach wall, most prominent along the greater curvature with diffuse submucosal edema in the gastric body and with mild perigastric fat stranding and edema and prominent mesenteric hyperemia. Multiple tiny mesenteric lymph nodes are seen. Mild distention of the stomach with air-fluid level is seen. There is also enlargement and fluid distention with air-fluid level of the duodenal bulb. Duodenal C-sweep is decompressed and unremarkable. There are abnormal large masses seen in the lesser sac, contiguous with each other with 2 of the masses appearing completely solid and measuring approximately 2.2 x 3 cm and 2.1 x 1.9 cm and the third mass appearing centrally hypoenhancing and measuring 2 x 1.5 cm. Findings are suspicious for large lymph node masses including centrally necrotic lymph node. Other smaller lymph nodes in the lesser sac and in the periportal/portacaval region are seen. No periaortic or pelvic adenopathy. No significant free fluid noted. Small and large bowel loops decompressed. Moderate sigmoid colonic diverticulosis. No acute diverticulitis. Appendix in right lower quadrant normal. VASCULAR STRUCTURES: Abdominal aorta normal in caliber with moderate soft and hard plaque seen.. No periaortic collections. BONES: Multilevel moderate vertebral spurring seen. No suspicious bone findings noted. CT/CT abdomen pelvis w IV con IMPRESSION: 1. Abnormal appearance of the stomach with diffuse wall thickening and enhancement, most prominent along the greater curvature of the stomach. There is associated perigastric fat stranding and edema and prominent mesenteric hyperemia. There are multiple large masses seen in the lesser sac, including 2 of the masses appearing completely solid and one of the masses appearing centrally hypoenhancing. Findings are suspicious for a primary gastric malignancy with associated metastatic adenopathy. Other entities, such as gastric lymphoma could be considered in the differential Further assessment with endoscopy and biopsy is recommended. 2. Moderate sigmoid colonic diverticulosis with no evidence of acute diverticulitis. 3. Multiple tiny low-attenuation masses in the kidneys bilaterally, too small to characterize, but statistically most likely tiny cysts. 4. Moderate atherosclerotic vascular disease. 5. Diffuse fatty atrophy of the pancreas. This result was discussed with Dr. Pollo Carrero 11/25/2022, 1:48 PM and it was ascertained that the content and urgency of this report was understood at the time of direct communication.
[2022-11-25 10:53] LABS: MANUAL DIFF FLAG NO
[2022-11-25 10:54] LABS: Basophils Percent Auto 0.4 % (0-2); Eosinophils Absolute Auto 0.2 X10*3/uL (0.0-0.4); Eosinophils Percent Auto 1.6 % (0-4); Hematocrit 31.3 % (37.0-47.0); Hemoglobin 10.4 g/dl (12.0-16.0); Imm Gran Abs Auto 0.02 X10*3/uL (0.00-0.03); Imm Gran Pct Auto 0.2 % (0.0-0.4); Lymphocytes Absolute Auto 2.9 X10*3/uL (1.2-4.9); Lymphocytes Percent Auto 26.8 % (20-40); Mean Corpuscular HGB Conc 33.2 g/dl (31.0-35.0); Mean Corpuscular Hemoglobin 27.6 pg (27.0-33.0); Mean Platelet Volume 9.5 fL (9.4-12.3); Monocytes Absolute Auto 0.7 X10*3/uL (0.1-1.2); Monocytes Percent Auto 6.7 % (2-11); Neutrophils Absolute Auto 6.9 x10*3/uL (2.0-8.3); Neutrophils Percent Auto 64.3 % (45-73); Platelet Count 413 X10*3/uL (160-400); Red Blood Count 3.77 X10*6/uL (4.20-5.50); Red Cell Distribution Width 12.9 % (11.0-16.0); White Blood Count 10.8 X10*3/uL (4.8-10.8)
[2022-11-25 11:17] LABS: Alanine Aminotransferase 7 U/L (0-31); Albumin Level 3.1 g/dL (3.5-5.0); Alkaline Phosphatase 78 U/L (39-117); Anion Gap 15 (12-20); Aspartate Amino Transferase 15 U/L (5-31); Bilirubin Total 0.4 mg/dL (0.0-1.0); Blood Urea Nitrogen 14 mg/dL (9-16); Carbon Dioxide 26 mmol/L (22-29); Chloride 104 mmol/L (96-108); Creatinine Clr Calc Pharmacy 29.8; Estimated Glomerular Filt Rate 46; Glucose Random 115 mg/dL (60-115); Potassium 3.3 mmol/L (3.3-5.1); Sodium 142 mmol/L (135-145); Total Protein 6.8 g/dL (6.5-8.0)
--- NOTE | 2022-11-25 11:21 | ED.GENADULT ---
HPI - General Adult General Chief complaint: General Medical Stated complaint: back and abd pain Time Seen by Provider: 11/25/22 11:16 Source: patient Mode of arrival: ambulatory Limitations: no limitations History of Present Illness HPI narrative: This is a 77 years old female presented to the emergency department with complaint of abdominal pain ongoing for months. The pain is localized in the upper abdomen the pain is radiated to the back. She has been in this emergency room a in the past she was seen in September 2022 for abdominal pain. At that time she had a negative CT scan of the abdomen and pelvis. Onset (ago): month(s) Location: abdomen Radiation: non-radiation Severity: moderate Pain Consistency: constant Relieving factors: none Associated symptoms: denies other symptoms Related Data Home Medications Medication Instructions Recorded Confirmed albuterol sulfate 2.5 mg/3 mL mg inhalation 10/10/21 (0.083 %) solution for nebulization albuterol sulfate 90 mcg/actuation 0 mcg inhalation 10/10/21 aerosol inhaler atorvastatin 80 mg tablet 80 mg PO QPM 10/10/21 cholecalciferol (vitamin D3) 125 125 mcg PO DAILY 10/10/21 mcg (5,000 unit) tablet cyanocobalamin (vitamin B-12) 0 mcg PO 10/10/21 1,000 mcg tablet diclofenac sodium 1 % topical gel g topical 10/10/21 furosemide 20 mg tablet 20 mg PO DAILY 10/10/21 loratadine 10 mg tablet 10 mg PO DAILY 10/10/21 omeprazole 20 mg capsule,delayed 20 mg PO DAILY 10/10/21 release Previous Rx's Medication Instructions Recorded sennosides 8.6 mg tablet (senna) 17.2 mg PO BEDTIME for 04/22/20 constipation #60 tabs dicyclomine 20 mg tablet 20 mg PO QID PRN abdominal pain 09/30/22 #20 tabs ondansetron 4 mg disintegrating 4 mg PO Q6-8H PRN nausea and 09/30/22 tablet vomiting #7 tabs nitrofurantoin 100 mg PO BID 7 days #14 caps 10/04/22 monohydrate/macrocrystals 100 mg capsule (Macrobid) Allergies Allergy/AdvReac Type Severity Reaction Status Date / Time codeine [CODEINE] Allergy Intermediate RASH Verified 10/10/21 13:03 ibuprofen [From MOTRIN] Allergy Intermediate RASH Verified 10/10/21 13:03 Penicillins [PENICILLINS] Allergy Intermediate RASH Verified 10/10/21 13:03 motrin Allergy Unknown rash, Uncoded 10/10/21 13:03 swelling PCN Allergy Unknown rash, Uncoded 10/10/21 13:03 swelling Review of Systems ENT: Reports system reviewed and no additional complaints, except as documented Respiratory: Respiratory: Reports no additional respiratory complaints Musculoskeletal: Musculoskeletal: Reports no additional musculoskeletal complaints PMFSH Past Medical History Attestation statement: The following information was validated with the patient. Medical History (Reviewed 11/25/22 @ 11: by Pollo Carrero MD) Asthma Kidney disease Social History Social History (Reviewed 11/25/22 @ : by Pollo Carrero MD) Smoked in Last 30 Days: No Advance Directives: Yes Advance Directives on File: Yes Advance Directives Date on File: 02/12/20 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al status: disabled 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: r handed Physical Exam ED Vital Signs: Vital Signs - 24 hr 11/25/22 10:39 11/25/22 12:00 11/25/22 14:10 Temperature 97.2 F 98.1 F Pulse Rate 91 78 79 Respiratory Rate 16 18 16 Blood Pressure 107/65 124/59 L 93/51 L Pulse Oximetry 99 97 96 Oxygen Delivery Method Room Air Room Air Room Air BMI result Body Mass Index 23.3 No toxic-appearing looks well Const General: cooperative Nutritional Appearance: well nourished Orientation/consciousness: patient oriented x3 Limitations: no limitations HENMT Head: Yes normal to inspection General nose exam: Normal external nose present Face and sinus: Yes normal facial exam Mouth: Normal oral and palatal mucosa present Throat: Yes posterior oropharynx normal Neck Neck: Yes normal visual inspection, Yes full ROM and Yes no lymphadenopathy Chest Chest palpation & inspection: normal inspection of the chest Resp Effort & Inspection: normal respiratory effort Auscultation: clear to auscultation bilaterally Cardio Jugular venous distension: no JVD Rate: regular rate Rhythm: regular rhythm GI Inspection: Yes normal to inspection Palpation (GI): Soft to palpation and Tenderness to palpation present (GI) Auscultation: normal bowel sounds Skin General skin exam: no rashes or lesions noted and elasticity normal Lesions: no lesions Rashes: no rashes Neuro General: patient oriented x3 Course Reevaluation(s) Reevaluation #1: ct result noted will admit and consult GI will need endoscopy Time: 14:15 Medications Administered Discontinued Medications Generic Name Dose Route Start Last Admin Trade Name Felicia PRN Reason Stop Dose Admin Iohexol 85 ml 11/25/22 12:52 11/25/22 12:53 Iohexol 350 Mg/Ml 75 Ml Infus..Btl IV 11/25/22 12:53 85 ml ONCE ONE Administration Morphine Sulfate 4 mg 11/25/22 11:21 11/25/22 12:08 Morphine Sulfate 4 Mg/Ml Cartridge IVPUSH 11/25/22 11:22 4 mg ONCE ONE Administration Protocol Ondansetron HCl 4 mg 11/25/22 11:21 11/25/22 12:06 Ondansetron Hcl 4 Mg/2 Ml Vial IVPUSH 11/25/22 11:22 4 mg ONCE ONE Administration Medical Decision Making Medical Decision Making [facility] Narrative: Patient presented with abdominal pain ongoing for months will do a CT scan of the abdomen and pelvis labs and reassessed Differential Diagnosis Differential Diagnoses: The differential diagnosis associated with the presentation includes Peptic ulcer disease/gastritis/GERD/perforated bowel Admission/Observation Consideration of admission/observation: Escalation of care including admission/observation considered Consult Healthcare Provider Management of the patient was discussed with: Hospitalist and Drafting Layout Man Dr Caldwell Lab Data [facility] Lab Attestation statement: I reviewed the patient's lab results. 11/25/22 10:49 11/25/22 10:49 Labs: Lab Results 11/25/22 11/25/22 11/25/22 Range/Units 10:49 10:49 11:15 WBC 10.8 (4.8-10.8) X10*3/uL RBC 3.77 L (4.20-5.50) X10*6/uL Hgb 10.4 L (12.0-16.0) g/dl Hct 31.3 L (37.0-47.0) % MCV 83.0 (80.0-98.0) fL MCH 27.6 (27.0-33.0) pg MCHC 33.2 (31.0-35.0) g/dl RDW 12.9 (11.0-16.0) % Plt Count 413 H D (160-400) X10*3/uL MPV 9.5 (9.4-12.3) fL Immature Gran % (Auto) 0.2 (0.0-0.4) % Neut % (Auto) 64.3 (45-73) % Lymph % (Auto) 26.8 (20-40) % [place] % (Auto) 6.7 (2-11) % Eos % (Auto) 1.6 (0-4) % Baso % (Auto) 0.4 (0-2) % Lymph # (Auto) 2.9 (1.2-4.9) X10*3/uL [place] # (Auto) 0.7 (0.1-1.2) X10*3/uL Eos # (Auto) 0.2 (0.0-0.4) X10*3/uL Baso # (Auto) 0.0 (0.0-0.2) X10*3/uL Abs Immat Gran (auto) 0.02 (0.00-0.03) X10*3/uL Absolute Neuts (auto) 6.9 (2.0-8.3) x10*3/uL Absolute Nucleated RBC 0.000 (0.0-0.012) X10*3/uL Nucleated RBC % (auto) 0.0 (0.0-0.2) /100WBC Sodium 142 (135-145) mmol/L Potassium 3.3 D (3.3-5.1) mmol/L Chloride 104 (96-108) mmol/L Carbon Dioxide 26 (22-29) mmol/L Anion Gap 15 (12-20) BUN 14 (9-16) mg/dL Creatinine 1.15 (0.5-1.4) mg/dL Estim Creat Clear Calc 29.8 Estimated GFR 46 Random Glucose 115 (60-115) mg/dL Calcium 9.0 (8.4-10.2) mg/dL Total Bilirubin 0.4 (0.0-1.0) mg/dL AST 15 (5-31) U/L ALT 7 (0-31) U/L Alkaline Phosphatase 78 (39-117) U/L Total Protein 6.8 (6.5-8.0) g/dL Albumin 3.1 L (3.5-5.0) g/dL Urine Color Yellow Urine Appearance Turbid Urine pH 5.5 (5.0-9.0) Ur Specific [place] 1.015 (1.005-1.025) Urine Protein 100 (2+) H (Neg-Trace) mg/dL Urine Glucose (UA) Negative (Negative) mg/dL Urine Ketones Trace (Negative) mg/dL Urine Blood Negative (Negative) Urine Nitrite Negative (Negative) Ur Leukocyte Esterase Large (3+) H (Negative) Urine RBC 0-2 (0-2) /HPF Urine WBC 21-50 (0-5) /HPF Ur Squamous Epith Cells >20 (0-2) /HPF Urine Bacteria 4+ (None Seen) Hyaline Casts 3-5 (0-2) /LPF Independent Interpretation I performed an independent interpretation of an: CT Scan Interpretation: I personally viewed the CT scan of the abdomen and pelvis Radiology Impression Discussion of test interpretation with radiology: I have reviewed the radiologist's reading. Radiologist Impression: 1.? Abnormal appearance of the stomach with diffuse wall thickening and enhancement, most prominent along the greater curvature of the stomach. There is associated perigastric fat stranding and edema and prominent mesenteric hyperemia. There are multiple large masses seen in the lesser sac, including 2 of the masses appearing completely solid and one of the masses appearing centrally hypoenhancing. Findings are suspicious for a primary gastric malignancy with associated metastatic adenopathy. Other entities, such as gastric lymphoma could be considered in the differential Further assessment with endoscopy and biopsy is recommended. 2.? Moderate sigmoid colonic diverticulosis with no evidence of acute diverticulitis. 3.? Multiple tiny low-attenuation masses in the kidneys bilaterally, too small to characterize, but statistically most likely tiny cysts. 4.? Moderate atherosclerotic vascular disease. 5.? Diffuse fatty atrophy of the pancreas. ? This result was discussed with Dr. Pollo Carrero 11/25/2022, 1:48 PM and it was ascertained that the content and urgency of this report was understood at the time of direct communication. ? Dictated By: Jasmina Justice MD Signed By: <Electronically signed by Jasmina Justice MD in OV> 11/25/22 1349 DD/ 1253 TD/TT:? [employer] Administrator Developer: TIA External Record Review External record reviewed: Inpatient record Prescription Management I considered prescription management with: Pain Medication Discharge Plan Discharge Clinical Impression: Abdominal pain, Stomach cancer Patient Disposition: Admitted As Inpatient
[2022-11-25 11:26] LABS: Appearance Urine Turbid; Color Urine Yellow; Glucose Urine UA Negative (Negative); Leukocyte Esterase Urine Large (3+) (Negative); Nitrite Urine Negative (Negative); PH 5.5 (5.0-9.0); Specific Gravity - Urine 1.015 (1.005-1.025); UMIC TRIGGER UACC YES; Urine Blood Negative (Negative); Urine Ketones Trace mg/dL (Negative); Urine Protein 100 (2+) mg/dL (Neg-Trace)
[2022-11-25 11:35] LABS: Bacteria Urine 4+ (None Seen); RBC Urine 0-2 /HPF (0-2); Squamous Epithelial Cell Urine >20 /HPF (0-2); UACC Culture Trigger YES; WBC Urine 21-50 /HPF (0-5)
[2022-11-25] MEDS: ondansetron HCL 4 MG/2 ML VIAL IVPUSH (12:06)
[2022-11-25] MEDS: Morphine Sulfate 4 MG/ML CARTRIDGE IVPUSH (12:08)
[2022-11-25] MEDS: iohexoL 350 MG/ML 75 ML INFUS..BTL 85 ML IV (12:53)
--- NOTE | 2022-11-25 14:40 | P.HPHOSP_ITS ---
History of Present Illness Date of Service: 11/25/22 Chief Complaint: Abdominal pain 77-year-old female patient with past medical history significant for hyperlipidemia, recent UTI treated with antibiotics came to [facility] due to abdominal pain of 3 months duration associated with weight loss 30-40 lb ear ly satiety sweats, she is able to keep food down but feels bloated, also complaining of constipation using stool softeners, denies nausea, but had 1 episode of watery vomiting yesterday, patient seen in ED in September of [address] abdomen and pelvis was unremarkable, today CT abdomen and pelvis showed abnormality in stomach suspicious for primary gastric malignancy with associated metastatic adenopathy differential includes gastric lymphoma, due to abdominal pain weight loss patient will be admitted to medical floor will obtain GI consult for endoscopy, patient treated in the emergency room with IV morphine, patient denies urinary burning or frequency but does complain of nocturia, urine analysis is positive for 4+ bacteria, and pyuria and leukocyte esterase, noted to have drop in hematocrit since last September, electrolytes are stable, low albumin. Review of Systems Review of Systems: General no headache, no dizziness no fever chills. CVS no chest pain, no palpitation. Respiratory no cough, no sob Gastrointestinal no nausea no vomiting, constipation Musculoskeletal no pain Skin no rash PMFSH Medical History Asthma Kidney disease Pertinent family history: Mother has history of breast cancer, no family history of GI cancer Social History Household Members: Family Housing: Apartment Do you presently have visiting nurse or other home services: No Patient Tobacco Use Status: Never used Tobacco Smoked in Last 30 Days: No Use of substances other than those prescribed or required for medical reasons: No Have you been hit, kicked, punched, or otherwise hurt by someone within the past year? If so, by whom?: No Do you feel safe in your current relationship?: No Current Relationship Is there a partner from a previous relationship who is making you feel unsafe now?: No Are you made to feel afraid or neglected: No Advance Directives: Yes Advance Directives on File: Yes Advance Directives Date on File: 02/12/20 Do you have thoughts of harming others: None Do you have a plan to hurt others: No Plan Recently lost weight without trying: Yes How much weight loss: 34pounds or more Eating poorly because of decreased appetite: Yes Nutrition screen score: 7 Nutrition Risks: Poor intake 0-25% >4 days Patient : No : No Poor oral hygiene: No 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al status: disabled 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: r [employer] Meds Allergies Allergy/AdvReac Type Severity Reaction Status Date / Time codeine [CODEINE] Allergy Intermediate RASH Verified 10/10/21 13:03 ibuprofen [From MOTRIN] Allergy Intermediate RASH Verified 10/10/21 13:03 Penicillins [PENICILLINS] Allergy Intermediate RASH Verified 10/10/21 13:03 motrin Allergy Unknown rash, Uncoded 10/10/21 13:03 swelling PCN Allergy Unknown rash, Uncoded 10/10/21 13:03 swelling Active Medications: Current Medications Acetaminophen (Acetaminophen 325 Mg Tablet) 650 mg PO Q6H PRN PRN Reason: Pain, Mild (Pain Scale 1-3) Ceftriaxone Sodium 1 gm/ (Sodium Chloride) 50 mls @ 100 mls/hr IV Q24H [facility] Melatonin (Melatonin 3 Mg Tablet) 3 mg PO BEDTIME PRN PRN Reason: Insomnia Morphine Sulfate (Morphine Sulfate 4 Mg/Ml Cartridge) 3 mg IVPUSH Q4H PRN; Protocol PRN Reason: Pain, Severe (Pain Scale 7-10) Ondansetron HCl (Ondansetron Hcl 4 Mg/2 Ml Vial) 4 mg IVPUSH Q8H PRN PRN Reason: Nausea and Vomiting Oxycodone HCl (Oxycodone Hcl Immed Release 5 Mg Tablet) 5 mg PO Q6H PRN PRN Reason: Pain, Moderate(Pain Scale 4-6) Pharmacy Consult (Consult Rx Perform Med Rec) 1 each MISCELLANE ONCE PRN PRN Reason: Consult order Sodium Chloride (0.9 % Sodium Chloride Flush 3 Ml Syringe) [facility] Medications Medication Instructions Recorded Confirmed Last Taken Type albuterol sulfate 2.5 mg/3 mL 2.5 mg inhalation Q4H PRN Wheezing 10/10/21 11/25/22 Unknown History (0.083 %) solution for nebulization albuterol sulfate 90 mcg/actuation 2 puff inhalation Q4H PRN 10/10/21 11/25/22 Unknown History aerosol inhaler Shortness Of Breath Or Wheezing atorvastatin 80 mg tablet 80 mg PO QPM 10/10/21 11/25/22 Unknown History cholecalciferol (vitamin D3) 125 125 mcg PO DAILY 10/10/21 11/25/22 Unknown History mcg (5,000 unit) tablet cyanocobalamin (vitamin B-12) 1,000 mcg PO DAILY 10/10/21 11/25/22 Unknown History 1,000 mcg tablet furosemide 20 mg tablet 20 mg PO DAILY PRN Edema 10/10/21 11/25/22 Unknown History loratadine 10 mg tablet 10 mg PO DAILY PRN Allergic 10/10/21 11/25/22 Unknown History Symptoms omeprazole 20 mg capsule,delayed 20 mg PO DAILY 10/10/21 11/25/22 Unknown History release acetaminophen 325 mg tablet 325 mg PO QID PRN Pain 11/25/22 11/25/22 Unknown History fluticasone propionate 50 1 spray intranasal BID 11/25/22 11/25/22 Unknown History mcg/actuation nasal spray,suspension sennosides 8.6 mg tablet (senna) 8.6 - 17.2 mg PO DAILY PRN 11/25/22 11/25/22 Unknown History Constipation umeclidinium 62.5 mcg/actuation 1 inh inhalation DAILY 11/25/22 11/25/22 Unknown History blister powder for inhalation (Incruse Ellipta) Physical Exam Vital Signs and Narrative: Vital Signs: Last Vital Signs Temp 98.1 F 11/25/22 14:10 Pulse 79 11/25/22 14:10 Resp 16 11/25/22 14:10 BP 93/51 L 11/25/22 14:10 Pulse Ox 96 11/25/22 14:10 O2 Del Method Room Air 11/25/22 14:10 BMI result Body Mass Index 23.3 Const: Other: General awake alert,resting comfortably in no acute distress. Anicteric sclera Neck supple no JVD. CVS regular rate rhythm, Respiratory lungs clear to auscultation, no respiratory distress, no wheeze, no rhonchi. Gastrointestinal abdomen soft, mild diffuse mid abdominal tenderness to palpation, bowel sounds audible, no guarding , no rigidity. Extremities no edema. Neuro nonfocal Skin no rash Psych appropriate affect Results Labs 11/25/22 10:49 11/25/22 10:49 Labs: Laboratory Results - last 24 hr 11/25/22 11/25/22 11/25/22 10:49 10:49 11:15 MCV 83.0 MCH 27.6 MCHC 33.2 RDW 12.9 Plt Count 413 H D MPV 9.5 Immature Gran % (Auto) 0.2 Neut % (Auto) 64.3 Lymph % (Auto) 26.8 [place] % (Auto) 6.7 Eos % (Auto) 1.6 Baso % (Auto) 0.4 Lymph # (Auto) 2.9 [place] # (Auto) 0.7 Eos # (Auto) 0.2 Baso # (Auto) 0.0 Abs Immat Gran (auto) 0.02 Absolute Neuts (auto) 6.9 Absolute Nucleated RBC 0.000 Nucleated RBC % (auto) 0.0 Anion Gap 15 Estim Creat Clear Calc 29.8 Estimated GFR 46 Random Glucose 115 Calcium 9.0 Total Bilirubin 0.4 AST 15 ALT 7 Alkaline Phosphatase 78 Total Protein 6.8 Albumin 3.1 L Urine Color Yellow Urine Appearance Turbid Urine pH 5.5 Ur Specific [place] 1.015 Urine Protein 100 (2+) H Urine Glucose (UA) Negative Urine Ketones Trace Urine Blood Negative Urine Nitrite Negative Ur Leukocyte Esterase Large (3+) H Urine RBC 0-2 Urine WBC 21-50 Ur Squamous Epith Cells >20 Urine Bacteria 4+ Hyaline Casts 3-5 Imaging Radiologist's Impressions: Impressions Abdomen/Pelvis CT 11/25/22 12:53 IMPRESSION: 1. Abnormal appearance of the stomach with diffuse wall thickening and enhancement, most prominent along the greater curvature of the stomach. There is associated perigastric fat stranding and edema and prominent mesenteric hyperemia. There are multiple large masses seen in the lesser sac, including 2 of the masses appearing completely solid and one of the masses appearing centrally hypoenhancing. Findings are suspicious for a primary gastric malignancy with associated metastatic adenopathy. Other entities, such as gastric lymphoma could be considered in the differential Further assessment with endoscopy and biopsy is recommended. 2. Moderate sigmoid colonic diverticulosis with no evidence of acute diverticulitis. 3. Multiple tiny low-attenuation masses in the kidneys bilaterally, too small to characterize, but statistically most likely tiny cysts. 4. Moderate atherosclerotic vascular disease. 5. Diffuse fatty atrophy of the pancreas. This result was discussed with Dr. Pollo Carrero 11/25/2022, 1:48 PM and it was ascertained that the content and urgency of this report was understood at the time of direct communication. Assessment and Plan (1) Abdominal pain: Status: Acute (2) Stomach cancer: Status: Acute Plan 77-year-old female with past medical history of hyperlipidemia recent UTI presented to [facility] with symptoms of abdominal pain weight loss early satiety of [address] abdomen and pelvis suspicious for a primary gastric malignancy with associated metastatic adenopathy patient will be admitted to [facility] for abdominal pain and further workup and evaluation. Intractable abdominal pain: Weight loss/early satiety/CT abdomen and pelvis showed diffuse wall thickening and enhancement along the greater curvature of stomach with perigastric fat stranding and edema none prominent mesenteric hyperemia and multiple large masses in the lesser sac finding suspicious for primary gastric malignancy with associated metastatic adenopathy, differential include gastric lymphoma. Admitted to medical floor treated with IV morphine and oxycodone as needed Obtain GI consult to for upper endoscopy for biopsy. Continue diet. Acute normocytic anemia likely due to GI blood loss, no active bleeding noted, will check stool guaiac, hematocrit above transfusion threshold, check iron studies. Prilosec for GI prophylaxis Hyperlipidemia check lipid profile hold statins due to significant Weight loss. Question UTI UA positive will place on IV ceftriaxone follow urine cultures DVT prophylaxis with compression boots avoid anticoagulation due to significant drop in hematocrit in 3 months Code status full code In my clinical judgment patient will need to night inpatient stay due to abdominal pain requiring expert consultation and further workup to rule out gastric malignancy. Time Spent With Patient Time: Total time managing care of this patient today ____ minutes. Quality Stroke Does the patient have a stroke diagnosis?: No VTE Prior VTE?: No VTE Risk Level:: Medical - moderate - high VTE Device Contraindication: N/A - Device Ordered VTE Drug Contraindication: Treatment Not Indicated
--- NOTE | 2022-11-25 14:57 | PHA.MEDREC ---
Pharmacy Consult ? Medication Reconciliation Pharmacy has completed the medication reconciliation. spoke with patient to confirm medications through an neonatal intensive care unit nurse.
[2022-11-25] MEDS: cefTRIAXone sodium 1 GM in 0.9 % Sodium Chloride 50 ML IV (15:07)
[2022-11-25] MEDS: 0.9 % Sodium Chloride Flush 3 ML SYRINGE IVFLUSH ×2 (15:08→21:13)
--- NOTE | 2022-11-25 16:40 | PC.NURSE ---
PT RESTING QUIETLY AND OFFERS NO COMPLAINTS, SHE STATES NO PAIN, SHE IS TOLERATING PO FLUIDS, SHE WAS MEDICATED FOR UTI. AWAITING ROOM ASSIGNMENT FOR ADMISSION
[2022-11-25] MEDS: Fluticasone Propionate Nasal 16 GM SPRAY 1 SPRAY NOSTRIL-B (21:12)
[2022-11-26] MEDS: Omeprazole 20 MG CAPSULE.DR PO (06:11)
[2022-11-26 07:28] VITALS: BP 107/62; PULSE 68; RESP 16; TEMP 36.4; O2SAT 97
[2022-11-26] MEDS: Cholecalciferol (Vitamin D3) 25 MCG TABLET 125 MCG PO (09:07)
[2022-11-26] MEDS: Cyanocobalamin (Vitamin B-12) 1,000 MCG TABLET 1000 MCG PO (09:07)
[2022-11-26] MEDS: Fluticasone Propionate Nasal 16 GM SPRAY 1 SPRAY NOSTRIL-B ×2 (09:08→19:24)
[2022-11-26] MEDS: 0.9 % Sodium Chloride Flush 3 ML SYRINGE IVFLUSH ×3 (09:08→19:25)
--- NOTE | 2022-11-26 10:25 | P.PNIM_ITS ---
Subjective Subjective Date of Service: 11/26/22 Interval History: Being followed for abdominal pain and abnormal CT scan of abdomen concerning for primary gastric malignancy, this a.m. patient denies abdominal pain, no nausea, no vomiting, tolerating full liquid diet, will keep her NPO after midnight for upper endoscopy, no chest pain, no palpitations, no shortness of breath. Review of Systems All other system reviewed and negative. Physical Exam Vital Signs: Vital Signs: Last Vital Signs Temp 97.6 F 11/26/22 07:28 Pulse 68 11/26/22 07:28 Resp 16 11/26/22 07:28 BP 107/62 11/26/22 07:28 Pulse Ox 97 11/26/22 07:28 O2 Del Method Room Air 11/26/22 07:28 BMI result Body Mass Index 23.2 Const: Other: General awake alert,resting comfortably in no acute distress. Anicteric sclera Neck? supple no JVD. CVS? regular rate rhythm, Respiratory lungs clear to auscultation, no respiratory distress, no wheeze, no rhonchi. Gastrointestinal abdomen soft, no tenderness to palpation, bowel sounds audible, no guarding , no rigidity. Extremities no? edema. Neuro nonfocal Skin no rash Psych appropriate affect Objective Data Active Medications Acetaminophen (Acetaminophen 325 Mg Tablet) 650 mg PO Q6H PRN PRN Reason: Pain, Mild (Pain Scale 1-3) Albuterol Sulfate (Albuterol Sulfate (0.083%) 2.5 Mg/3 Ml Vial.Neb) 2.5 mg INHALE Q4H PRN PRN Reason: Wheezing Albuterol Sulfate (Albuterol Sulfate 90 Mcg 8 Gm Inhaler) 2 puff INHALE Q4H PRN PRN Reason: Shortness Of Breath Or Wheezing Cyanocobalamin (Cyanocobalamin (Vitamin B-12) 1,000 Mcg Tablet) 1,000 mcg PO DAILY [facility] Last Admin: 11/26/22 09:07 Dose: 1,000 mcg Documented By: KIMBERLEY Dicyclomine HCl (Dicyclomine Hcl 10 Mg Capsule) 20 mg PO QID PRN PRN Reason: abdominal pain Fluticasone Propionate (Fluticasone Propionate Nasal 16 Gm [place]) 1 spray NOSTRIL-B BID [facility] Last Admin: 11/26/22 09:08 Dose: 1 spray Documented By: KIMBERLEY Ceftriaxone Sodium 1 gm/ (Sodium Chloride) 50 mls @ 100 mls/hr IV Q24H [facility] Last Infusion: 11/25/22 15:40 Dose: 0 mls/hr Documented By: MALGORZAAT Melatonin (Melatonin 3 Mg Tablet) 3 mg PO BEDTIME PRN PRN Reason: Insomnia Morphine Sulfate (Morphine Sulfate 4 Mg/Ml Cartridge) 3 mg IVPUSH Q4H PRN; Protocol PRN Reason: Pain, Severe (Pain Scale 7-10) Omeprazole (Omeprazole 20 Mg Capsule.Dr) 20 mg PO DAILY@0630 [facility] Last Admin: 11/26/22 06:11 Dose: 20 mg Documented By: IRMA Ondansetron HCl (Ondansetron Hcl 4 Mg/2 Ml Vial) 4 mg IVPUSH Q8H PRN PRN Reason: Nausea and Vomiting Oxycodone HCl (Oxycodone Hcl Immed Release 5 Mg Tablet) 5 mg PO Q6H PRN PRN Reason: Pain, Moderate(Pain Scale 4-6) Pharmacy Consult (Consult Rx Perform Med Rec) 1 each MISCELLANE ONCE PRN PRN Reason: Consult order Sodium Chloride (0.9 % Sodium Chloride Flush 3 Ml Syringe) 3 ml IVFLUSH QSHIFT [facility] Last Admin: 11/26/22 09:08 Dose: 3 ml Documented By: KIMBERLEY Vitamin D (Cholecalciferol (Vitamin D3) 25 Mcg Tablet) 125 mcg PO DAILY [facility] Last Admin: 11/26/22 09:07 Dose: 125 mcg Documented By: KIMBERLEY Labs 11/25/22 10:49 11/25/22 10:49 Labs: Laboratory Results - last 24 hr 11/25/22 11/25/22 11/25/22 10:49 10:49 11:15 MCV 83.0 MCH 27.6 MCHC 33.2 RDW 12.9 Plt Count 413 H D MPV 9.5 Immature Gran % (Auto) 0.2 Neut % (Auto) 64.3 Lymph % (Auto) 26.8 [place] % (Auto) 6.7 Eos % (Auto) 1.6 Baso % (Auto) 0.4 Lymph # (Auto) 2.9 [place] # (Auto) 0.7 Eos # (Auto) 0.2 Baso # (Auto) 0.0 Abs Immat Gran (auto) 0.02 Absolute Neuts (auto) 6.9 Absolute Nucleated RBC 0.000 Nucleated RBC % (auto) 0.0 Anion Gap 15 Estim Creat Clear Calc 29.8 Estimated GFR 46 Random Glucose 115 Calcium 9.0 Total Bilirubin 0.4 AST 15 ALT 7 Alkaline Phosphatase 78 Total Protein 6.8 Albumin 3.1 L Urine Color Yellow Urine Appearance Turbid Urine pH 5.5 Ur Specific [place] 1.015 Urine Protein 100 (2+) H Urine Glucose (UA) Negative Urine Ketones Trace Urine Blood Negative Urine Nitrite Negative Ur Leukocyte Esterase Large (3+) H Urine RBC 0-2 Urine WBC 21-50 Ur Squamous Epith Cells >20 Urine Bacteria 4+ Hyaline Casts 3-5 Assessment and Plan (1) Abdominal pain: Status: Acute Plan 77-year-old female with past medical history of hyperlipidemia recent UTI presented to [facility] with symptoms of abdominal pain weight loss early satiety of [address] abdomen and pelvis suspicious for a primary gastric malignancy with associated metastatic adenopathy patient will be admitted to [facility] for abdominal pain and further workup and evaluation. Intractable abdominal pain: No pain this morning tolerating full liquid diet Weight loss/early satiety/CT abdomen and pelvis showed diffuse wall thickening and enhancement along the greater curvature of stomach with perigastric fat stranding and edema none prominent mesenteric hyperemia and multiple large masses in the lesser sac finding suspicious for primary gastric malignancy with associated metastatic adenopathy, differential include gastric lymphoma. On IV morphine and oxycodone as needed for pain control Case discussed with Dr. Caldwell will undergo upper endoscopy at a.m. keep NPO after midnight Acute normocytic anemia likely due to GI blood loss, no active bleeding noted, check stool guaiac, hematocrit above transfusion threshold, follow iron studies. Prilosec for GI prophylaxis, repeat CBC at a.m. Hyperlipidemia check lipid profile hold statins due to significant Weight loss. Question UTI UA positive on IV ceftriaxone day 2/5 follow urine cultures DVT prophylaxis with compression boots avoid anticoagulation due to significant drop in hematocrit in 3 months Code status full code In my clinical judgment patient will need continued inpatient stay due to abdominal pain requiring GI consultation and further workup to rule out gastric malignancy. Time Spent With Patient Time: Total time managing care of this patient today ____ minutes. Quality Stroke Does the patient have a stroke diagnosis?: No VTE Prior VTE?: No VTE Risk Level:: Medical - moderate - high VTE Device Contraindication: N/A - Device Ordered VTE Drug Contraindication: Treatment Not Indicated
--- NOTE | 2022-11-26 12:08 | P.CNGI_ITS ---
History of Present Illness Data of Consult Service Date: 11/26/22 Requesting physician: Danuta Turner Primary Care Provider: Mis Gutierrez MD [facility] Reason for consult: Abdominal pain, abnormal CT scan of the abdomen 77 year old Palestinian-speaking female with hyperlipidemia, recent UTI treated with antibiotics seen [place] [facility] on 11/25/22 with 3 - 4 month hx of abdominal pain and weight loss. History obtained with the help of patient's son and [id number] who were at the bedside Pt describes the pain as constant, cramping and pressure and 8/10 in intensity. Pain is worse with eating. Patient also complains of intermittent nausea, vomiting and bloating. She admits to a weight loss of 42 lb over the past 4 months. Pt complains of intermittent heartburn and has a hx of chronic constipation (takes Dulcolax prn). Patient denies major cardiac or pulmonary problems, loud snoring or sleep apnea She admits to taking ibuprofen p.r.n. for subjective fevers and chills. Pt has had GB and shoulder surgery in the past and denies problems with anesthesia She took a long time to wake up when she had her tubes tied.. Denies being on chronic anticoagulation. Patient denies smoking or EtOH abuse Pt has 5 children and lives with her grandson. Family hx is positive for Breast cancer in pt's Mon and pt denies known FH of colon polyps, colon cancer or other GI malignancies. PAST EGD/COLONOSCOPY: Pt admits to having a colonoscopy in the past and denies having an EGD Patient was seen in ED in September of [address] abdomen and pelvis was unremarkable, today CT abdomen and pelvis showed abnormality in stomach suspicious for primary gastric malignancy with associated metastatic adenopathy differential includes gastric lymphoma, due to abdominal pain weight loss Patient was treated in the emergency room with IV morphine and was admitted for further management. 11/25/[address] SCAN SHOWED: 1.? Abnormal appearance of the stomach with diffuse wall thickening and enhancement, most prominent along the greater curvature of the stomach. There is associated perigastric fat stranding and edema and prominent mesenteric hyperemia. There are multiple large masses seen in the lesser sac, including 2 of the masses appearing completely solid and one of the masses appearing centrally hypoenhancing. Findings are suspicious for a primary gastric malignancy with associated metastatic adenopathy. Other entities, such as gastric lymphoma could be considered in the differential Further assessment with endoscopy and biopsy is recommended. 2.? Moderate sigmoid colonic diverticulosis with no evidence of acute diverticulitis. 3.? Multiple tiny low-attenuation masses in the kidneys bilaterally, too small to characterize, but statistically most likely tiny cysts. 4.? Moderate atherosclerotic vascular disease. 5.? Diffuse fatty atrophy of the pancreas. Review of Systems Review of Systems: General no headache, no dizziness no fever chills. CVS no chest pain, no palpitation. Respiratory no cough, no sob Gastrointestinal no nausea no vomiting, constipation Musculoskeletal no pain Skin no rash PMFSH Past Medical History Medical History Asthma Kidney disease Social History Social History Household Members: Family Housing: Apartment Do you presently have visiting nurse or other home services: No Patient Tobacco Use Status: Never used Tobacco Smoked in Last 30 Days: No Use of substances other than those prescribed or required for medical reasons: No Currently Displaying Signs/Symptoms of Drug Intoxication Withdrawal: No Have you been hit, kicked, punched, or otherwise hurt by someone within the past year? If so, by whom?: No Do you feel safe in your current relationship?: No Current Relationship Is there a partner from a previous relationship who is making you feel unsafe now?: No Are you made to feel afraid or neglected: No Are you DNR?: No Advance Directives: Yes Advance Directives on File: Yes Advance Directives Date on File: 02/12/20 Do you have thoughts of harming others: None Do you have a plan to hurt others: No Plan Recently lost weight without trying: Yes How much weight loss: 34pounds or more Eating poorly because of decreased appetite: Yes Nutrition screen score: 7 Nutrition Risks: Poor intake 0-25% >4 days Patient : No : No Poor oral hygiene: No service: No 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al status: disabled 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: r [employer] Allergies Allergy/AdvReac Type Severity Reaction Status Date / Time codeine [CODEINE] Allergy Intermediate RASH Verified 10/10/21 13:03 ibuprofen [From MOTRIN] Allergy Intermediate RASH Verified 10/10/21 13:03 Penicillins [PENICILLINS] Allergy Intermediate RASH Verified 10/10/21 13:03 motrin Allergy Unknown rash, Uncoded 10/10/21 13:03 swelling PCN Allergy Unknown rash, Uncoded 10/10/21 13:03 swelling Active Medications: Current Medications Acetaminophen (Acetaminophen 325 Mg Tablet) 650 mg PO Q6H PRN PRN Reason: Pain, Mild (Pain Scale 1-3) Albuterol Sulfate (Albuterol Sulfate (0.083%) 2.5 Mg/3 Ml Vial.Neb) 2.5 mg INHALE Q4H PRN PRN Reason: Wheezing Albuterol Sulfate (Albuterol Sulfate 90 Mcg 8 Gm Inhaler) 2 puff INHALE Q4H PRN PRN Reason: Shortness Of Breath Or Wheezing Cyanocobalamin (Cyanocobalamin (Vitamin B-12) 1,000 Mcg Tablet) 1,000 mcg PO DAILY [facility] Last Admin: 11/26/22 09:07 Dose: 1,000 mcg Dicyclomine HCl (Dicyclomine Hcl 10 Mg Capsule) 20 mg PO QID PRN PRN Reason: abdominal pain Fluticasone Propionate (Fluticasone Propionate Nasal 16 Gm [place]) 1 spray NOSTRIL-B BID [facility] Last Admin: 11/26/22 09:08 Dose: 1 spray Ceftriaxone Sodium 1 gm/ (Sodium Chloride) 50 mls @ 100 mls/hr IV Q24H [facility] Last Infusion: 11/25/22 15:40 Dose: Infused Melatonin (Melatonin 3 Mg Tablet) 3 mg PO BEDTIME PRN PRN Reason: Insomnia Morphine Sulfate (Morphine Sulfate 4 Mg/Ml Cartridge) 3 mg IVPUSH Q4H PRN; Protocol PRN Reason: Pain, Severe (Pain Scale 7-10) Omeprazole (Omeprazole 20 Mg Capsule.Dr) 20 mg PO DAILY@0630 [facility] Last Admin: 11/26/22 06:11 Dose: 20 mg Ondansetron HCl (Ondansetron Hcl 4 Mg/2 Ml Vial) 4 mg IVPUSH Q8H PRN PRN Reason: Nausea and Vomiting Oxycodone HCl (Oxycodone Hcl Immed Release 5 Mg Tablet) 5 mg PO Q6H PRN PRN Reason: Pain, Moderate(Pain Scale 4-6) Pharmacy Consult (Consult Rx Perform Med Rec) 1 each MISCELLANE ONCE PRN PRN Reason: Consult order Sodium Chloride (0.9 % Sodium Chloride Flush 3 Ml Syringe) 3 ml IVFLUSH QSHIFT [facility] Last Admin: 11/26/22 09:08 Dose: 3 ml Vitamin D (Cholecalciferol (Vitamin D3) 25 Mcg Tablet) 125 mcg PO DAILY [facility] Last Admin: 11/26/22 09:07 Dose: 125 mcg Home Medications Medication Instructions Recorded Confirmed Last Taken Type albuterol sulfate 2.5 mg/3 mL 2.5 mg inhalation Q4H PRN Wheezing 10/10/21 11/25/22 Unknown History (0.083 %) solution for nebulization albuterol sulfate 90 mcg/actuation 2 puff inhalation Q4H PRN 10/10/21 11/25/22 Unknown History aerosol inhaler Shortness Of Breath Or Wheezing atorvastatin 80 mg tablet 80 mg PO QPM 10/10/21 11/25/22 Unknown History cholecalciferol (vitamin D3) 125 125 mcg PO DAILY 10/10/21 11/25/22 Unknown History mcg (5,000 unit) tablet cyanocobalamin (vitamin B-12) 1,000 mcg PO DAILY 10/10/21 11/25/22 Unknown History 1,000 mcg tablet furosemide 20 mg tablet 20 mg PO DAILY PRN Edema 10/10/21 11/25/22 Unknown History loratadine 10 mg tablet 10 mg PO DAILY PRN Allergic 10/10/21 11/25/22 Unknown History Symptoms omeprazole 20 mg capsule,delayed 20 mg PO DAILY 10/10/21 11/25/22 Unknown History release acetaminophen 325 mg tablet 325 mg PO QID PRN Pain 11/25/22 11/25/22 Unknown History fluticasone propionate 50 1 spray intranasal BID 11/25/22 11/25/22 Unknown History mcg/actuation nasal spray,suspension sennosides 8.6 mg tablet (senna) 8.6 - 17.2 mg PO DAILY PRN 11/25/22 11/25/22 Unknown History Constipation umeclidinium 62.5 mcg/actuation 1 inh inhalation DAILY 11/25/22 11/25/22 Unknown History blister powder for inhalation (Incruse Ellipta) Physical Exam Vital Signs: Vital Signs: Last Vital Signs Temp 97.6 F 11/26/22 07:28 Pulse 68 11/26/22 07:28 Resp 16 11/26/22 07:28 BP 107/62 11/26/22 07:28 Pulse Ox 97 07/23/23 07:28 O2 Del Method Room Air 11/26/22 07:28 BMI result Body Mass Index 23.2 Const: General: no acute distress Nutritional Appearance: average body habitus Orientation/consciousness: patient oriented x3 Limitations: language barrier HEENT: Head: Yes normal to inspection Ears: hearing grossly normal bilaterally Mouth: Normal oral and palatal mucosa present Eyes: Sclerae: sclerae normal Pupils: Equal, round and reactive pupils present Neck: Neck: Yes normal visual inspection Chest: Chest palpation & inspection: normal inspection of the chest Resp: Effort & Inspection: normal respiratory effort Auscultation: clear to auscultation bilaterally Cardio: Palpation: normal PMI Rate: regular rate Rhythm: regular rhythm Heart sounds: S1 normal heart sound present, S2 normal heart sound present and no murmurs GI: Palpation (GI): Soft to palpation, Tenderness to palpation present (GI) (Mild epigastric tenderness without rebound) and No hepatosplenomegaly present Auscultation: normal bowel sounds Rectal Exam - Female: deferred Skin: General skin exam: no rashes or lesions noted Neuro: General: patient oriented x3, gait normal and moves all extremities Cranial nerves: Yes Equal, round and reactive pupils present Psych: Appearance: grossly normal Mental Status: mental status grossly normal Results Labs 11/25/22 10:49 11/25/22 10:49 Assessment and Plan (1) Abdominal pain: Status: Acute (2) Abnormal CT of the abdomen: Status: Acute Plan 77 year old Palestinian-speaking female with hyperlipidemia, recent UTI treated with antibiotics seen [place] [facility] on 11/25/22 with 3 - 4 month hx of abdominal pain and weight loss. Pt describes the pain as constant, cramping and pressure and 8/10 in intensity. She admits to a weight loss of 42 lb over the past [address] scan showed abnormal appearance of the stomach with diffuse wall thickening and enhancement, most prominent along the greater curvature of the stomach. and multiple large masses seen in the lesser sac - suspicious for a primary gastric malignancy with associated metastatic adenopathy. RECOMMENDATIONS: 1. Agree with IV pain medications for pain control 2. Check CEA level 3. Pt will be scheduled for an EGD on 11/27/22 for further evaluation of the stomach. EGD procedure and potential complications including bleeding, perforation, reaction to anesthetics and aspiration reviewed with the patient and her son, Rob Tripathi ([phone]). Son would like to be called with EGD results Time Spent With Patient Time: Total time managing care of this patient today ____ minutes. Procedures Date of Service Date of Service: 11/27/22
--- NOTE | 2022-11-26 12:28 | MHC.CM.PN ---
CM MET WITH PT WITH THE ASSISTANCE OF A TRANSACTION COORDINATOR PT REPORTS SHE LIVES AT HOME WITH HER GRANDSON SHE DENIES HAVING HOME SERVICES PT REPORTS SHE USES BOTH A CANE AND A WALKER NEEDED SHE REPORTS HER SON IS HER HCP, COPY REQUESTED PCP: ALFRED BILLINGS IMM DELIVERED DCP: HOME NO SERVICES VIA FAMILY TRANSPORT
[2022-11-26] MEDS: Potassium Chloride ER 20 MEQ TAB.ER.PRT PO (12:52)
[2022-11-26] MEDS: cefTRIAXone sodium 1 GM in 0.9 % Sodium Chloride 50 ML IV (15:32)
[2022-11-26 15:37] VITALS: BP 96/51; PULSE 66; RESP 16; TEMP 36.4; O2SAT 93
[2022-11-26 19:10] VITALS: BP 93/54; PULSE 73; RESP 17; TEMP 36.6; O2SAT 97
[2022-11-27] VITALS (10 sets, daily range): BP systolic 94–125; BP diastolic 49–62; PULSE 62–72; RESP 16–18; TEMP 35.9–36.9; O2SAT 96–100; BMI 23.2
[2022-11-27 06:26] LABS: Hemoglobin 9.3 g/dl (12.0-16.0); Mean Corpuscular HGB Conc 33.2 g/dl (31.0-35.0); Mean Corpuscular Hemoglobin 27.6 pg (27.0-33.0); Mean Corpuscular Volume 83.1 fL (80.0-98.0); Mean Platelet Volume 9.9 fL (9.4-12.3); Platelet Count 384 X10*3/uL (160-400); Red Blood Count 3.37 X10*6/uL (4.20-5.50); Red Cell Distribution Width 13.2 % (11.0-16.0); White Blood Count 7.5 X10*3/uL (4.8-10.8)
[2022-11-27] MEDS: Omeprazole 20 MG CAPSULE.DR PO (06:33)
[2022-11-27 06:48] LABS: Cholesterol 181 mg/dL; HDL Cholesterol 19 mg/dL; Iron 33 mcg/dL (30-160); LDL Cholesterol Calculated 127 mg/dl; Percent Iron Saturation 23 % (15-50); Total Iron Binding Capacity 143 mcg/dL (228-428); Triglycerides 178 mg/dL; Unsaturated Iron Binding 110 ug/dL
[2022-11-27 07:02] LABS: Ferritin 376 ng/mL (10-250)
[2022-11-27] MEDS: Fluticasone Propionate Nasal 16 GM SPRAY 1 SPRAY NOSTRIL-B ×2 (07:10→20:02)
[2022-11-27] MEDS: Cyanocobalamin (Vitamin B-12) 1,000 MCG TABLET 1000 MCG PO (07:11)
[2022-11-27] MEDS: Cholecalciferol (Vitamin D3) 25 MCG TABLET 125 MCG PO (07:11)
[2022-11-27] MEDS: 0.9 % Sodium Chloride Flush 3 ML SYRINGE IVFLUSH ×3 (07:11→20:02)
[2022-11-27] MEDS: oxyCODONE HCl Immed Release 5 MG TABLET PO (07:11)
--- NOTE | 2022-11-27 10:41 | P.PNIM_ITS ---
Subjective Subjective Date of Service: 11/27/22 Interval History: Remains NPO overnight for pending EGD. Voices no complaints of pain. Uneventful night Review of Systems denies chest pain Denies shortness of breath Denies nausea vomiting diarrhea Denies fever chills Physical Exam Vital Signs: Vital Signs: Last Vital Signs Temp 96.8 F 11/27/22 07:54 Pulse 65 11/27/22 07:54 Resp 16 11/27/22 07:54 BP 94/55 L 11/27/22 07:54 Pulse Ox 98 11/27/22 07:54 O2 Del Method Room Air 11/27/22 07:54 BMI result Body Mass Index 23.2 Const: Other: awake alert lying comfortable in bed Resp: Other: clear to auscultation bilaterally no rales rhonchi or wheezes Cardio: Other: no S4; positive S1-S2; no S3 murmurs rubs or gallops GI: Other: soft nontender nondistended. Normal bowel sound Extrem: Other: no edema bilaterally Objective Data Active Medications Acetaminophen (Acetaminophen 325 Mg Tablet) 650 mg PO Q6H PRN PRN Reason: Pain, Mild (Pain Scale 1-3) Albuterol Sulfate (Albuterol Sulfate (0.083%) 2.5 Mg/3 Ml Vial.Neb) 2.5 mg INHALE Q4H PRN PRN Reason: Wheezing Albuterol Sulfate (Albuterol Sulfate 90 Mcg 8 Gm Inhaler) 2 puff INHALE Q4H PRN PRN Reason: Shortness Of Breath Or Wheezing Cyanocobalamin (Cyanocobalamin (Vitamin B-12) 1,000 Mcg Tablet) 1,000 mcg PO DAILY [facility] Last Admin: 11/27/22 07:11 Dose: 1,000 mcg Documented By: SHARI Dicyclomine HCl (Dicyclomine Hcl 10 Mg Capsule) 20 mg PO QID PRN PRN Reason: abdominal pain Fluticasone Propionate (Fluticasone Propionate Nasal 16 Gm [place]) 1 spray NOSTRIL-B BID [facility] Last Admin: 11/27/22 07:10 Dose: 1 spray Documented By: SHARI Ceftriaxone Sodium 1 gm/ (Sodium Chloride) 50 mls @ 100 mls/hr IV Q24H [facility] Last Infusion: 11/26/22 16:05 Dose: 0 mls/hr Documented By: COTEMA Melatonin (Melatonin 3 Mg Tablet) 3 mg PO BEDTIME PRN PRN Reason: Insomnia Morphine Sulfate (Morphine Sulfate 4 Mg/Ml Cartridge) 3 mg IVPUSH Q4H PRN; Protocol PRN Reason: Pain, Severe (Pain Scale 7-10) Omeprazole (Omeprazole 20 Mg Capsule.Dr) 20 mg PO DAILY@0630 [facility] Last Admin: 11/27/22 06:33 Dose: 20 mg Documented By: IRMA Ondansetron HCl (Ondansetron Hcl 4 Mg/2 Ml Vial) 4 mg IVPUSH Q8H PRN PRN Reason: Nausea and Vomiting Oxycodone HCl (Oxycodone Hcl Immed Release 5 Mg Tablet) 5 mg PO Q6H PRN PRN Reason: Pain, Moderate(Pain Scale 4-6) Last Admin: 11/27/22 07:11 Dose: 5 mg Documented By: SHARI Pharmacy Consult (Consult Rx Perform Med Rec) 1 each MISCELLANE ONCE PRN PRN Reason: Consult order Sodium Chloride (0.9 % Sodium Chloride Flush 3 Ml Syringe) 3 ml IVFLUSH QSHIFT [facility] Last Admin: 11/27/22 07:11 Dose: 3 ml Documented By: SHARI Vitamin D (Cholecalciferol (Vitamin D3) 25 Mcg Tablet) 125 mcg PO DAILY [facility] Last Admin: 11/27/22 07:11 Dose: 125 mcg Documented By: SHARI Labs 11/27/22 05:45 11/25/22 10:49 Labs: Laboratory Results - last 24 hr 11/27/22 11/27/22 05:45 05:45 MCV 83.1 MCH 27.6 MCHC 33.2 RDW 13.2 Plt Count 384 MPV 9.9 Absolute Nucleated RBC 0.000 Nucleated RBC % (auto) 0.0 Iron 33 TIBC 143 L % Saturation 23 Unsat Iron Binding 110 Ferritin 376 H Triglycerides 178 Cholesterol 181 LDL Cholesterol, Calc 127 HDL Cholesterol 19 Microbiology Microbiology Results: Microbiology 11/25/22 Unknown Urine Culture - Final Urine clean catch - Clean Catch Midstream Assessment and Plan (1) Abdominal pain: Status: Acute (2) Anemia: Status: Acute Plan 77-year-old female with past medical history of hyperlipidemia recent UTI presented to [facility] with symptoms of abdominal pain weight loss early satiety of 3 months [address] .CT abdomen and pelvis suspicious for a primary gastric malignancy with associated metastatic adenopathy. 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 Quality Stroke Does the patient have a stroke diagnosis?: No VTE Prior VTE?: No VTE Risk Level:: Medical - moderate - high VTE Device Contraindication: N/A - Device Ordered VTE Drug Contraindication: Treatment Not Indicated
--- NOTE | 2022-11-27 12:48 | MHC.CM.PN ---
per rounds pt to have an egd today no pans for dc today
--- NOTE | 2022-11-27 13:51 | MHC.SHP ---
Pre-Procedural Eval Section A Date of Service: 11/27/22 The patient is an INPATIENT: Yes Changes since office visit: Yes New Medical Problems, Yes Changes in Medication and Yes Patient answered all questions; No Cold of Flu in the past 2 weeks The History & Physical has been completed within 30 days and I have reviewed it.: Yes Section B Chief Complaint: Abdominal pain Allergies: Allergies Allergy/AdvReac Type Severity Reaction Status Date / Time codeine [CODEINE] Allergy Intermediate RASH Verified 10/10/21 13:03 ibuprofen [From MOTRIN] Allergy Intermediate RASH Verified 10/10/21 13:03 Penicillins [PENICILLINS] Allergy Intermediate RASH Verified 10/10/21 13:03 motrin Allergy Unknown rash, Uncoded 10/10/21 13:03 swelling PCN Allergy Unknown rash, Uncoded 10/10/21 13:03 swelling Plan I have reviewed the history and physical and performed a pertinent physical examination on my patient. No changes have occurred unless specified. Time Spent With Patient Time: Total time managing care of this patient today ____ minutes.
--- NOTE | 2022-11-27 13:56 | P.CONAN_ITS ---
HPI - Anesthesia Eval Consult details Narrative: gastric ca, egd PMFSH Active Problems Active Problems: All Active Problems (Updated 11/27/22 @ 10:43 by Trey Parish, DO) Anemia (Acute) Abnormal CT of the abdomen (Acute) Abdominal pain (Acute) Stomach cancer (Acute) Trochanteric bursitis, right hip (Acute) Osteoarthritis of right knee (Acute) Iliotibial band syndrome of right side (Acute) Kidney disease (Acute) Asthma (Acute) BPPV (benign paroxysmal positional vertigo) (Acute) Past Medical History Medical History Asthma Kidney disease Family History Family history of problems with anesthesia: No Social History Social History Household Members: Family Housing: Apartment Do you presently have visiting nurse or other home services: No Patient Tobacco Use Status: Never used Tobacco Smoked in Last 30 Days: No Use of substances other than those prescribed or required for medical reasons: No Currently Displaying Signs/Symptoms of Drug Intoxication Withdrawal: No Have you been hit, kicked, punched, or otherwise hurt by someone within the past year? If so, by whom?: No Do you feel safe in your current relationship?: No Current Relationship Is there a partner from a previous relationship who is making you feel unsafe now?: No Are you made to feel afraid or neglected: No Are you DNR?: No Advance Directives: Yes Advance Directives on File: Yes Advance Directives Date on File: 02/12/20 Do you have thoughts of harming others: None Do you have a plan to hurt others: No Plan Recently lost weight without trying: Yes How much weight loss: 34pounds or more Eating poorly because of decreased appetite: Yes Nutrition screen score: 7 Nutrition Risks: Poor intake 0-25% >4 days Patient : No : No Poor oral hygiene: No service: No 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al status: disabled 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: r handed Meds Allergies Allergy/AdvReac Type Severity Reaction Status Date / Time codeine [CODEINE] Allergy Intermediate RASH Verified 10/10/21 13:03 ibuprofen [From MOTRIN] Allergy Intermediate RASH Verified 10/10/21 13:03 Penicillins [PENICILLINS] Allergy Intermediate RASH Verified 10/10/21 13:03 motrin Allergy Unknown rash, Uncoded 10/10/21 13:03 swelling PCN Allergy Unknown rash, Uncoded 10/10/21 13:03 swelling Active Medications: Current Medications Acetaminophen (Acetaminophen 325 Mg Tablet) 650 mg PO Q6H PRN PRN Reason: Pain, Mild (Pain Scale 1-3) Albuterol Sulfate (Albuterol Sulfate (0.083%) 2.5 Mg/3 Ml Vial.Neb) 2.5 mg INHALE Q4H PRN PRN Reason: Wheezing Albuterol Sulfate (Albuterol Sulfate 90 Mcg 8 Gm Inhaler) 2 puff INHALE Q4H PRN PRN Reason: Shortness Of Breath Or Wheezing Cyanocobalamin (Cyanocobalamin (Vitamin B-12) 1,000 Mcg Tablet) 1,000 mcg PO DAILY [facility] Last Admin: 11/27/22 07:11 Dose: 1,000 mcg Dicyclomine HCl (Dicyclomine Hcl 10 Mg Capsule) 20 mg PO QID PRN PRN Reason: abdominal pain Fluticasone Propionate (Fluticasone Propionate Nasal 16 Gm [place]) 1 spray NOSTRIL-B BID [facility] Last Admin: 11/27/22 07:10 Dose: 1 spray Ceftriaxone Sodium 1 gm/ (Sodium Chloride) 50 mls @ 100 mls/hr IV Q24H [facility] Last Infusion: 11/26/22 16:05 Dose: Infused Melatonin (Melatonin 3 Mg Tablet) 3 mg PO BEDTIME PRN PRN Reason: Insomnia Morphine Sulfate (Morphine Sulfate 4 Mg/Ml Cartridge) 3 mg IVPUSH Q4H PRN; Protocol PRN Reason: Pain, Severe (Pain Scale 7-10) Omeprazole (Omeprazole 20 Mg Capsule.Dr) 20 mg PO DAILY@0630 [facility] Last Admin: 11/27/22 06:33 Dose: 20 mg Ondansetron HCl (Ondansetron Hcl 4 Mg/2 Ml Vial) 4 mg IVPUSH Q8H PRN PRN Reason: Nausea and Vomiting Oxycodone HCl (Oxycodone Hcl Immed Release 5 Mg Tablet) 5 mg PO Q6H PRN PRN Reason: Pain, Moderate(Pain Scale 4-6) Last Admin: 11/27/22 07:11 Dose: 5 mg Pharmacy Consult (Consult Rx Perform Med Rec) 1 each MISCELLANE ONCE PRN PRN Reason: Consult order Sodium Chloride (0.9 % Sodium Chloride Flush 3 Ml Syringe) 3 ml IVFLUSH QSHIFT [facility] Last Admin: 11/27/22 07:11 Dose: 3 ml Vitamin D (Cholecalciferol (Vitamin D3) 25 Mcg Tablet) 125 mcg PO DAILY [facility] Last Admin: 11/27/22 07:11 Dose: 125 mcg Home Medications Medication Instructions Recorded Confirmed Last Taken Type albuterol sulfate 2.5 mg/3 mL 2.5 mg inhalation Q4H PRN Wheezing 10/10/21 11/25/22 Unknown History (0.083 %) solution for nebulization albuterol sulfate 90 mcg/actuation 2 puff inhalation Q4H PRN 10/10/21 11/25/22 Unknown History aerosol inhaler Shortness Of Breath Or Wheezing atorvastatin 80 mg tablet 80 mg PO QPM 10/10/21 11/25/22 Unknown History cholecalciferol (vitamin D3) 125 125 mcg PO DAILY 10/10/21 11/25/22 Unknown History mcg (5,000 unit) tablet cyanocobalamin (vitamin B-12) 1,000 mcg PO DAILY 10/10/21 11/25/22 Unknown History 1,000 mcg tablet furosemide 20 mg tablet 20 mg PO DAILY PRN Edema 10/10/21 11/25/22 Unknown History loratadine 10 mg tablet 10 mg PO DAILY PRN Allergic 10/10/21 11/25/22 Unknown History Symptoms omeprazole 20 mg capsule,delayed 20 mg PO DAILY 10/10/21 11/25/22 Unknown History release acetaminophen 325 mg tablet 325 mg PO QID PRN Pain 11/25/22 11/25/22 Unknown History fluticasone propionate 50 1 spray intranasal BID 11/25/22 11/25/22 Unknown History mcg/actuation nasal spray,suspension sennosides 8.6 mg tablet (senna) 8.6 - 17.2 mg PO DAILY PRN 11/25/22 11/25/22 Unknown History Constipation umeclidinium 62.5 mcg/actuation 1 inh inhalation DAILY 11/25/22 11/25/22 Unknown History blister powder for inhalation (Incruse Ellipta) Exam Exam Date and Time: November 27, 2022 1356 Height,Weight and Vital Signs: Height 5 ft Weight 54 kg Last Vital Signs Temp 98.5 F 11/27/22 13:39 Pulse 65 11/27/22 13:39 Resp 16 11/27/22 13:39 BP 116/57 L 11/27/22 13:39 Pulse Ox 99 11/27/22 13:39 O2 Del Method Room Air 11/27/22 13:39 Pertinent Lab Results Pertinent Lab Results: Laboratory Tests 11/25/22 11/25/22 11/25/22 10:49 10:49 11:15 WBC 10.8 RBC 3.77 L Hgb 10.4 L Hct 31.3 L MCV 83.0 MCH 27.6 MCHC 33.2 RDW 12.9 Plt Count 413 H D MPV 9.5 Immature Gran % (Auto) 0.2 Neut % (Auto) 64.3 Lymph % (Auto) 26.8 Marshall % (Auto) 6.7 Eos % (Auto) 1.6 Baso % (Auto) 0.4 Lymph # (Auto) 2.9 Marshall # (Auto) 0.7 Eos # (Auto) 0.2 Baso # (Auto) 0.0 Abs Immat Gran (auto) 0.02 Absolute Neuts (auto) 6.9 Absolute Nucleated RBC 0.000 Nucleated RBC % (auto) 0.0 Sodium 142 Potassium 3.3 D Chloride 104 Carbon Dioxide 26 Anion Gap 15 BUN 14 Creatinine 1.15 Estim Creat Clear Calc 29.8 Estimated GFR 46 Random Glucose 115 Calcium 9.0 Iron TIBC % Saturation Unsat Iron Binding Ferritin Total Bilirubin 0.4 AST 15 ALT 7 Alkaline Phosphatase 78 Total Protein 6.8 Albumin 3.1 L Triglycerides Cholesterol LDL Cholesterol, Calc HDL Cholesterol Urine Color Yellow Urine Appearance Turbid Urine pH 5.5 Ur Specific [place] 1.015 Urine Protein 100 (2+) H Urine Glucose (UA) Negative Urine Ketones Trace Urine Blood Negative Urine Nitrite Negative Ur Leukocyte Esterase Large (3+) H Urine RBC 0-2 Urine WBC 21-50 Ur Squamous Epith Cells >20 Urine Bacteria 4+ Hyaline Casts 3-5 11/27/22 11/27/22 05:45 05:45 WBC 7.5 RBC 3.37 L Hgb 9.3 L Hct 28.0 L MCV 83.1 MCH 27.6 MCHC 33.2 RDW 13.2 Plt Count 384 MPV 9.9 Immature Gran % (Auto) Neut % (Auto) Lymph % (Auto) Marshall % (Auto) Eos % (Auto) Baso % (Auto) Lymph # (Auto) Marshall # (Auto) Eos # (Auto) Baso # (Auto) Abs Immat Gran (auto) Absolute Neuts (auto) Absolute Nucleated RBC 0.000 Nucleated RBC % (auto) 0.0 Sodium Potassium Chloride Carbon Dioxide Anion Gap BUN Creatinine Estim Creat Clear Calc Estimated GFR Random Glucose Calcium Iron 33 TIBC 143 L % Saturation 23 Unsat Iron Binding 110 Ferritin 376 H Total Bilirubin AST ALT Alkaline Phosphatase Total Protein Albumin Triglycerides 178 Cholesterol 181 LDL Cholesterol, Calc 127 HDL Cholesterol 19 Urine Color Urine Appearance Urine pH Ur Specific [place] Urine Protein Urine Glucose (UA) Urine Ketones Urine Blood Urine Nitrite Ur Leukocyte Esterase Urine RBC Urine WBC Ur Squamous Epith Cells Urine Bacteria Hyaline Casts Airway Mallampati Class: II Neck ROM: Limited Heart: rrr Lungs: cta Assessment and Plan Assessment Anesthesia Assessment: Anesthesia Plan Discussed and Chart Reviewed Final Anesthetic Review Family History of Problems with Anesthesia: No Final Preanesthetic Review: No Changes in Pt Med Stat, Meds/Allgs Chart Reviewed and Consent Obtained/Reviewed Patient Risk: Intermediate Procedure Risk: Intermediate Anesthetic Plan Anesthetic Plan: MAC: Disposition: Standard PACU
--- NOTE | 2022-11-27 14:48 | W.PM.OPN ---
Operative Note Operative Note Date of Service: 11/27/22 Narrative: FLEXIBLE TRANSORAL UPPER GASTROINTESTINAL ENDOSCOPY WITH BIOPSIES Pre-op diagnosis: Abd Pain, wt loss, abnormal CT scan of abdomen Post-op diagnosis: Gastritis, Gastric mass, duodenal diverticulum Endoscopist:? Roman Caldwell MD Anesthesia:?MAC Consent: Indications for the procedure and potential complications of bleeding, perforation, reaction to medications and missed diagnosis were discussed with the patient With the help of a [employer] foreign language teacher and informed consent was obtained. Instrument: Olympus GIF H 190 mid size upper endoscope Monitoring: Vital signs and clinical assessment, continuous EKG monitoring, Pulse oximetry, Carbon Dioxide monitoring and blood pressure monitoring were done throughout the procedure. Procedure: The patient was placed in the left lateral decubitis position and pre-procedure medications were administered and a bite block was placed. The endoscope was inserted into the mouth and advanced under direct vision to the third part of duodenum. A careful inspection was made as the upper endoscope was withdrawn including a retroflexed examination of the proximal stomach; Findings and interventions are described below. Findings: Larynx: Normal Esophagus: GE junction at 35 cms. No esophagitis or Fritz's. Stomach: A large polypoidal mass with central ulceration in the gastric body along the greater curvature extending from 36 to 58 cms and covering 75% of the gastric circumference. Moderate diffuse gastric erythema. Biopsies were obtained from the antrum to check for H pylori. Grade 2 flap valve on retroflexed examination of the cardia. Duodenum: Normal bulb. 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 Above findings were reviewed with the patient's son and Dr Parish (pt's hospitalist)
[2022-11-27] MEDS: cefTRIAXone sodium 1 GM in 0.9 % Sodium Chloride 50 ML IV (16:53)
[2022-11-28 04:00] VITALS: BP 122/67; PULSE 58; RESP 16; TEMP 36.4; O2SAT 97
[2022-11-28] MEDS: Omeprazole 20 MG CAPSULE.DR PO (06:08)
[2022-11-28] MEDS: 0.9 % Sodium Chloride Flush 3 ML SYRINGE IVFLUSH ×3 (07:15→20:40)
[2022-11-28 07:29] VITALS: BP 104/55; PULSE 66; RESP 16; TEMP 36; O2SAT 97
--- NOTE | 2022-11-28 08:14 | PM.HEMONCCN ---
Subjective - Subjective Chief complaint: Consult for: Gastric mass. Patient: new to practice Consult date: 11/28/22 Requesting Physician: Roman Caldwell Primary Care Provider: Mis Gutierrez MD Medical Summary: DIAGNOSIS: GASTRIC MASS. HPI - Consult Narrative Reason for consult: Consult for: Gastric mass. Narrative: Delmy Ann is a 77 year old lady came to [facility] with abdominal pain of 3 months duration. This was associated with weight loss 30-40 lbs, early satiety sweats. She is able to keep food down but feels bloated. She complains of constipation, using stool softeners. Denies nausea, but had 1 episode of watery vomiting. She was seen in ED in September of 2022, at that time CT abdomen and pelvis was unremarkable. Now CT abdomen and pelvis showed abnormality in stomach suspicious for primary gastric malignancy with associated metastatic adenopathy differential includes gastric lymphoma. In the emergency room pt treated with IV morphine. She denies urinary burning or frequency but does complain of nocturia. Urine analysis is positive for 4+ bacteria, and pyuria and leukocyte esterase. She was noted to have a drop in hematocrit since last September, electrolytes are stable, low albumin. CT scan of the abdomen pelvis from 11/25: 1. Abnormal appearance of the stomach with diffuse wall thickening and enhancement, most prominent along the greater curvature of the stomach. There is associated perigastric fat stranding and edema and prominent mesenteric hyperemia. There are multiple large masses seen in the lesser sac, including 2 of the masses appearing completely solid and one of the masses appearing centrally hypoenhancing. Findings are suspicious for a primary gastric malignancy with associated metastatic adenopathy. Other entities, such as gastric lymphoma could be considered in the differential. Further assessment with endoscopy and biopsy is recommended. 2. Moderate sigmoid colonic diverticulosis with no evidence of acute diverticulitis. 3. Multiple tiny low-attenuation masses in the kidneys bilaterally, too small to characterize, but statistically most likely tiny cysts. 4. Moderate atherosclerotic vascular disease. 5. Diffuse fatty atrophy of the pancreas. She underwent an upper endoscopy yesterday by Dr. Caldwell. Findings: Her large polypoidal mass with central ulceration in the gastric body along the greater curvature extending from 36-58 cm and covering 75% of the gastric circumferential. Diffuse gastric erythema. Biopsies taken from antrum to check for H pylori. Review of Systems Review of Systems: General: She was tired but not any more. no headache, no dizziness no fever chills. CVS no chest pain, no palpitation. Respiratory no cough, no sob Gastrointestinal: She had acid reflux. no nausea no vomiting, constipation. Did not have a good appetite. Lost 40 lb. Now picking up. She has had UTI. She has been on antibiotics. Musculoskeletal: Has arthritis. Denies depression. Skin: Gets allergic rashes. [facility] Medical History significant for: 1. Hyperlipidemia. 2. Recent UTI treated with antibiotics. 3. Asthma. 4. Kidney disease. Pertinent family history: Mother has history of breast cancer. No family history of GI cancer. 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 She is not . Has 5 children. Household Members: Family Housing: Apartment Do you presently have visiting nurse or other home services: No Patient Tobacco Use Status: Never used Tobacco. She used to smoke half a pack a day since age 20. Quit 10 years ago. Denies alcohol. Smoked in Last 30 Days: No Review of Systems - Constitutional Reports no additional constitutional complaints, Reports anorexia, Reports fatigue, Reports lack of energy, Reports malaise, Reports poor appetite, Reports weakness, Reports weight loss - Eyes Reports no additional eye complaints - ENT Reports no additional ear, nose, mouth, and throat complaints - Cardiovascular Reports no additional cardiovascular complaints - Respiratory Reports no additional respiratory complaints - Gastrointestinal Reports no additional gastrointestinal complaints, Reports abdominal pain, Reports bloating, Reports constipation, Reports feeling full early, Reports dyspepsia, Reports heartburn, Reports nausea, Reports vomiting - Genitourinary Reports no additional female genitourinary complaints, Reports frequent nighttime urination - Musculoskeletal Reports no additional musculoskeletal complaints - Integumentary/Breasts Skin/Breast: Reports no additional skin complaints - Neurologic Reports no additional neurologic complaints - Psychiatric Reports no additional psychiatric complaints - Endocrine Reports no additional endocrine complaints - Hematologic/Lymphatic Reports no additional hematologic/lymphatic complaints - Allergic/Immunologic Reports no additional allergic/immunologic complaints Oncology Screenings - ECOG Performance Status ECOG Performance Status: 1 [facility] Medical History: Medical History (Last Reviewed 11/25/22 @ 14:52 by Danuta Turner MD) Asthma Kidney disease Functional capacity: uses cane/walker Patient : No Social History: Social History (Last Reviewed 11/25/22 @ 14:52 by Danuta Turner MD) Living Situation History: Household Members: Family Housing: Apartment Do you presently have visiting nurse or other home services: No Tobacco History: Patient Tobacco Use Status: Never used Tobacco Advance Directives: Advance Directives Date on File: 02/12/20 Occupation Assessmet: service: No 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al status: disabled 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: r handed Home Medications and Allergies Current Medications: Current Medications Acetaminophen (Acetaminophen 325 Mg Tablet) 650 mg PO Q6H PRN PRN Reason: Pain, Mild (Pain Scale 1-3) Albuterol Sulfate (Albuterol Sulfate (0.083%) 2.5 Mg/3 Ml Vial.Neb) 2.5 mg INHALE Q4H PRN PRN Reason: Wheezing Albuterol Sulfate (Albuterol Sulfate 90 Mcg 8 Gm Inhaler) 2 puff INHALE Q4H PRN PRN Reason: Shortness Of Breath Or Wheezing Cyanocobalamin (Cyanocobalamin (Vitamin B-12) 1,000 Mcg Tablet) 1,000 mcg PO DAILY [facility] Last Admin: 11/27/22 07:11 Dose: 1,000 mcg Dicyclomine HCl (Dicyclomine Hcl 10 Mg Capsule) 20 mg PO QID PRN PRN Reason: abdominal pain Fluticasone Propionate (Fluticasone Propionate Nasal 16 Gm [place]) 1 spray NOSTRIL-B BID [facility] Last Admin: 11/27/22 20:02 Dose: 1 spray Ceftriaxone Sodium 1 gm/ (Sodium Chloride) 50 mls @ 100 mls/hr IV Q24H [facility] Last Infusion: 11/27/22 17:23 Dose: Infused Melatonin (Melatonin 3 Mg Tablet) 3 mg PO BEDTIME PRN PRN Reason: Insomnia Morphine Sulfate (Morphine Sulfate 4 Mg/Ml Cartridge) 3 mg IVPUSH Q4H PRN; Protocol PRN Reason: Pain, Severe (Pain Scale 7-10) Omeprazole (Omeprazole 20 Mg Capsule.Dr) 20 mg PO DAILY@0630 [facility] Last Admin: 11/28/22 06:08 Dose: 20 mg Ondansetron HCl (Ondansetron Hcl 4 Mg/2 Ml Vial) 4 mg IVPUSH Q8H PRN PRN Reason: Nausea and Vomiting Oxycodone HCl (Oxycodone Hcl Immed Release 5 Mg Tablet) 5 mg PO Q6H PRN PRN Reason: Pain, Moderate(Pain Scale 4-6) Last Admin: 11/27/22 07:11 Dose: 5 mg Pharmacy Consult (Consult Rx Perform Med Rec) 1 each MISCELLANE ONCE PRN PRN Reason: Consult order Sodium Chloride (0.9 % Sodium Chloride Flush 3 Ml Syringe) 3 ml IVFLUSH QSHIFT [facility] Last Admin: 11/28/22 07:15 Dose: 3 ml Vitamin D (Cholecalciferol (Vitamin D3) 25 Mcg Tablet) 125 mcg PO DAILY [facility] Last Admin: 11/27/22 07:11 Dose: 125 mcg Home Medications Medication Instructions Recorded Confirmed Type albuterol sulfate 2.5 mg/3 mL 2.5 mg inhalation Q4H PRN Wheezing 10/10/21 11/25/22 History (0.083 %) solution for nebulization albuterol sulfate 90 mcg/actuation 2 puff inhalation Q4H PRN 10/10/21 11/25/22 History aerosol inhaler Shortness Of Breath Or Wheezing atorvastatin 80 mg tablet 80 mg PO QPM 10/10/21 11/25/22 History cholecalciferol (vitamin D3) 125 125 mcg PO DAILY 10/10/21 11/25/22 History mcg (5,000 unit) tablet cyanocobalamin (vitamin B-12) 1,000 mcg PO DAILY 10/10/21 11/25/22 History 1,000 mcg tablet furosemide 20 mg tablet 20 mg PO DAILY PRN Edema 10/10/21 11/25/22 History loratadine 10 mg tablet 10 mg PO DAILY PRN Allergic 10/10/21 11/25/22 History Symptoms omeprazole 20 mg capsule,delayed 20 mg PO DAILY 10/10/21 11/25/22 History release acetaminophen 325 mg tablet 325 mg PO QID PRN Pain 11/25/22 11/25/22 History fluticasone propionate 50 1 spray intranasal BID 11/25/22 11/25/22 History mcg/actuation nasal spray,suspension sennosides 8.6 mg tablet (senna) 8.6 - 17.2 mg PO DAILY PRN 11/25/22 11/25/22 History Constipation umeclidinium 62.5 mcg/actuation 1 inh inhalation DAILY 11/25/22 11/25/22 History blister powder for inhalation (Incruse Ellipta) Allergies Allergy/AdvReac Type Severity Reaction Status Date / Time codeine [CODEINE] Allergy Intermediate RASH Verified 10/10/21 13:03 ibuprofen [From MOTRIN] Allergy Intermediate RASH Verified 10/10/21 13:03 Penicillins [PENICILLINS] Allergy Intermediate RASH Verified 10/10/21 13:03 motrin Allergy Unknown rash, Uncoded 10/10/21 13:03 swelling PCN Allergy Unknown rash, Uncoded 10/10/21 13:03 swelling Physical Exam Vital signs: Vital Signs Temp 96.8 F 11/28/22 07:29 Pulse 66 11/28/22 07:29 Resp 16 11/28/22 07:29 BP 104/55 L 11/28/22 07:29 Pulse Ox 97 11/28/22 07:29 O2 Del Method Room Air 11/28/22 07:29 Intake & Output 11/27/22 11/28/22 11/28/22 18:59 06:59 18:59 Intake Total 50 / 290 240 / 290 Balance 50 / 290 240 / 290 Intake: Intake, Oral Amount 240 / 240 Intake, IV Amount 50 / 50 cefTRIAXone sodium 1 gm In 0.9 50 / 50 % Sodium Chloride 50 ml @ 100 mls/hr IV Q24H [facility] Rx#: [id number] Other: IV Intake, Intraoperative 1,000 Amount Meal Refused No NPO No Dinner % Eaten 75% Number of Unmeasured Voids 2 Urine Bathroom Urine Color Yellow Last Bowel Movement 11/24/22 Weight 54 kg Weight 54 kg - Constitutional Present: mild distress - Routine HEENT Exam Head: Present: normal inspection, normocephalic Eye: Present: normal appearance ENT: Present: mucous membranes moist - Routine Neck Exam Present: supple - Routine Respiratory Exam Present: CTAB - Routine Cardiovascular Exam Cardiovascular: Present: S1, S2 - Routine Neurological Exam Present: alert, oriented X3, normal speech - Detailed Neurological Exam: Coma Scale Eye Opening: Spontaneous (4) Verbal Response: Oriented (5) Motor Response: Obeys commands (6) [place] Coma Scale Total: 15 - Routine Psychiatric Exam Present: depressed Hem/Onc Consult Result - Labs CBC & Chem 7: 11/27/22 05:45 11/25/22 10:49 Assessment and Plan Patient Active problem list reviewed?: Yes (1) Stomach cancer Status: Acute Assessment and plan: This is a pleasant unfortunate 77-year-old lady, who presented with abdominal pain, dyspepsia,nausea vomiting, anorexia and weight loss. She was noted to have a drop in hematocrit since last September. CT scan of the abdomen pelvis from 11/25: 1. Abnormal appearance of the stomach with diffuse wall thickening and enhancement, most prominent along the greater curvature of the stomach. There is associated perigastric fat stranding and edema and prominent mesenteric hyperemia. There are multiple large masses seen in the lesser sac, including 2 of the masses appearing completely solid and one of the masses appearing centrally hypoenhancing. Findings are suspicious for a primary gastric malignancy with associated metastatic adenopathy. Other entities, such as gastric lymphoma could be considered in the differential. Further assessment with endoscopy and biopsy is recommended. 2. Moderate sigmoid colonic diverticulosis with no evidence of acute diverticulitis. 3. Multiple tiny low-attenuation masses in the kidneys bilaterally, too small to characterize, but statistically most likely tiny cysts. 4. Moderate atherosclerotic vascular disease. 5. Diffuse fatty atrophy of the pancreas. She underwent an upper endoscopy yesterday by Dr. Caldwell. Findings: Her large polypoidal mass with central ulceration in the gastric body along the greater curvature extending from 36-58 cm and covering 75% of the gastric circumferential. Diffuse gastric erythema. Biopsies taken from antrum to check for H pylori. CEA: 3.40. PLAN: Will wait for the final pathology results. Will review MSI testing, EGFR, KRAS, B Garrick, PIK3CA and HER2. In view of the advanced stage disease she would be a candidate for palliative chemo/ immunotherapy. Thank you for the consult, I will follow along with you. CC: Dr. Mis Gutierrez. Dr. Caldwell. Addendum: Preliminary report on the gastric biopsy: Lymphoma. The exact type is being investigated. Will see her as an outpatient, and proceed with further staging and management. - Time Spent With Patient Time Spent with Patient (in minutes): 30
[2022-11-28] MEDS: Cholecalciferol (Vitamin D3) 25 MCG TABLET 125 MCG PO (08:18)
[2022-11-28] MEDS: Cyanocobalamin (Vitamin B-12) 1,000 MCG TABLET 1000 MCG PO (08:18)
[2022-11-28] MEDS: Fluticasone Propionate Nasal 16 GM SPRAY 1 SPRAY NOSTRIL-B ×2 (08:20→20:40)
--- NOTE | 2022-11-28 12:43 | P.PNIM_ITS ---
Subjective Subjective Date of Service: 11/28/22 Interval History: no acute issues overnight. Tolerating diet Review of Systems denies chest pain Denies shortness of breath Denies nausea vomiting diarrhea Denies fever chills Physical Exam Vital Signs: Vital Signs: Last Vital Signs Temp 96.8 F 11/28/22 07:29 Pulse 66 11/28/22 07:29 Resp 16 11/28/22 07:29 BP 104/55 L 11/28/22 07:29 Pulse Ox 97 11/28/22 07:29 O2 Del Method Room Air 11/28/22 07:29 BMI result Body Mass Index 23.2 Const: Other: awake alert lying comfortable in bed Resp: Other: clear to auscultation bilaterally no rales rhonchi or wheezes Cardio: Other: no S4; positive S1-S2; no S3 murmurs rubs or gallops GI: Other: soft nontender nondistended. Normal bowel sound Extrem: Other: no edema bilaterally Objective Data Active Medications Acetaminophen (Acetaminophen 325 Mg Tablet) 650 mg PO Q6H PRN PRN Reason: Pain, Mild (Pain Scale 1-3) Albuterol Sulfate (Albuterol Sulfate (0.083%) 2.5 Mg/3 Ml Vial.Neb) 2.5 mg INHALE Q4H PRN PRN Reason: Wheezing Albuterol Sulfate (Albuterol Sulfate 90 Mcg 8 Gm Inhaler) 2 puff INHALE Q4H PRN PRN Reason: Shortness Of Breath Or Wheezing Cyanocobalamin (Cyanocobalamin (Vitamin B-12) 1,000 Mcg Tablet) 1,000 mcg PO DAILY [facility] Last Admin: 11/28/22 08:18 Dose: 1,000 mcg Documented By: KIMBERLEY Dicyclomine HCl (Dicyclomine Hcl 10 Mg Capsule) 20 mg PO QID PRN PRN Reason: abdominal pain Fluticasone Propionate (Fluticasone Propionate Nasal 16 Gm [place]) 1 spray NOSTRIL-B BID [facility] Last Admin: 11/28/22 08:20 Dose: 1 spray Documented By: KIMBERLEY Ceftriaxone Sodium 1 gm/ (Sodium Chloride) 50 mls @ 100 mls/hr IV Q24H [facility] Last Infusion: 11/27/22 17:23 Dose: 0 mls/hr Documented By: LINDA Melatonin (Melatonin 3 Mg Tablet) 3 mg PO BEDTIME PRN PRN Reason: Insomnia Morphine Sulfate (Morphine Sulfate 4 Mg/Ml Cartridge) 3 mg IVPUSH Q4H PRN; Protocol PRN Reason: Pain, Severe (Pain Scale 7-10) Omeprazole (Omeprazole 20 Mg Capsule.Dr) 20 mg PO DAILY@0630 [facility] Last Admin: 11/28/22 06:08 Dose: 20 mg Documented By: IRMA Ondansetron HCl (Ondansetron Hcl 4 Mg/2 Ml Vial) 4 mg IVPUSH Q8H PRN PRN Reason: Nausea and Vomiting Oxycodone HCl (Oxycodone Hcl Immed Release 5 Mg Tablet) 5 mg PO Q6H PRN PRN Reason: Pain, Moderate(Pain Scale 4-6) Last Admin: 11/27/22 07:11 Dose: 5 mg Documented By: SHARI Pharmacy Consult (Consult Rx Perform Med Rec) 1 each MISCELLANE ONCE PRN PRN Reason: Consult order Sodium Chloride (0.9 % Sodium Chloride Flush 3 Ml Syringe) 3 ml IVFLUSH QSHIFT [facility] Last Admin: 11/28/22 07:15 Dose: 3 ml Documented By: COTEMA Vitamin D (Cholecalciferol (Vitamin D3) 25 Mcg Tablet) 125 mcg PO DAILY [facility] Last Admin: 11/28/22 08:18 Dose: 125 mcg Documented By: COTEMA Labs 11/27/22 05:45 11/25/22 10:49 Labs: Laboratory Results - last 24 hr 11/28/22 05:12 Carcinoembryonic Ag 3.40 Assessment and Plan (1) Gastric mass: Status: Acute (2) Anemia: Status: Acute Plan 77-year-old female with past medical history of hyperlipidemia recent UTI prese nted to [facility] with symptoms of abdominal pain weight loss early satiety of [address] abdomen and pelvis suspicious for a primary gastric malignancy with associated metastatic adenopathy. EGD demonstrated ulcerated gastric mass. 1.Gastric mass - seen by Oncology; await markers. 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 Quality Stroke Does the patient have a stroke diagnosis?: No VTE Prior VTE?: No VTE Risk Level:: Medical - moderate - high VTE Device Contraindication: N/A - Device Ordered VTE Drug Contraindication: Treatment Not Indicated
--- NOTE | 2022-11-28 14:36 | HO.POSTANES ---
Post Anesthesia Evaluation Post Anesthesia Evaluation Date of Service: 11/28/22 Vital Signs: Vital Signs Temp Pulse Resp BP Pulse Ox O2 Del Method 11/28/22 07:29 96.8 F 66 16 104/55 L 97 Room Air 11/28/22 04:00 97.5 F 58 16 122/67 97 Room Air Anesthesia: Monitored Mental Status: Awake Pain Control: Satisfactory Nausea/Vomiting: None Hydration: Adequate Anesthesia-Related Issues: No Anes. Related Issues
[2022-11-28] MEDS: cefTRIAXone sodium 1 GM in 0.9 % Sodium Chloride 50 ML IV (15:03)
[2022-11-28 15:24] VITALS: BP 117/54; PULSE 72; RESP 20; TEMP 36.4; O2SAT 97
[2022-11-28 19:12] VITALS: BP 120/65; PULSE 59; RESP 17; TEMP 36.3; O2SAT 97
[2022-11-29 04:00] VITALS: BP 115/56; PULSE 69; RESP 16; TEMP 36.3; O2SAT 96
[2022-11-29] MEDS: Omeprazole 20 MG CAPSULE.DR PO (05:55)
[2022-11-29 07:49] VITALS: BP 109/68; PULSE 60; RESP 16; TEMP 36.1; O2SAT 96
[2022-11-29] MEDS: Cyanocobalamin (Vitamin B-12) 1,000 MCG TABLET 1000 MCG PO (08:21)
[2022-11-29] MEDS: Cholecalciferol (Vitamin D3) 25 MCG TABLET 125 MCG PO (08:21)
[2022-11-29] MEDS: 0.9 % Sodium Chloride Flush 3 ML SYRINGE IVFLUSH (08:23)
[2022-11-29] MEDS: Fluticasone Propionate Nasal 16 GM SPRAY 1 SPRAY NOSTRIL-B (08:23)
--- NOTE | 2022-11-29 09:52 | MHC.CLN ---
F/U DIET ADVANCED TO REGULAR ON 11/27. INTAKE APPEARS GOOD, 50-100% PER DOC. HX RECENT SIGNIFICANT WEIGHT LOSS AND POOR INTAKE WITH EARLY SATIETY. FOLLOW FOR INTAKE, WEIGHT, MEDICAL DX (GASTRIC MASS).
[2022-11-29] MEDS: oxyCODONE HCl Immed Release 5 MG TABLET PO (10:50)
--- NOTE | 2022-11-29 12:58 | P.DS_ITS ---
DS: Providers Provider Date of Service: 11/29/22 Date of admission: 11/25/22 14:30 Primary care physician: Mis Gutierrez MD Consults: 11/25/22 14:32 Consult to Gastroenterology Routine Consulting Provider: Roman Caldwell Reason for consultation: abd pain Has provider been notified: No 11/27/22 18:13 Consult to Hematology / Oncology Routine Consulting Provider: Rowena Becerril Reason for consultation: Abd pain, wt loss, gastric mass - biopsies pending Has provider been notified: No DS: Diagnosis Discharge Diagnosis (1) Stomach cancer: Status: Acute DS: Summary Hospital Course Hospital Course: 77-year-old female patient with past medical history significant for hyperlipidemia, recent UTI treated with antibiotics came to [facility] due to abdominal pain of 3 months duration associated with weight loss? 30-40 lb early satiety sweats, she is able to keep food down but feels bloated, also complaining of constipation using stool softeners, denies nausea, but had 1 episode of watery vomiting yesterday, patient seen in ED in September of [address] abdomen and pelvis was unremarkable, today CT abdomen and pelvis showed abnormality in stomach suspicious for primary gastric malignancy with associated metastatic adenopathy differential includes gastric lymphoma, due to abdominal pain weight loss patient will be admitted to medical floor will obtain GI consult for endoscopy, patient treated in the emergency room with IV morphine, patient denies urinary burning or frequency but does complain of nocturia, urine analysis is positive for 4+ bacteria, and pyuria and leukocyte esterase, noted to have drop in hematocrit since last September, electrolytes are stable, low albumin. Hospital Course admitted to general medical floor and started on ceftriaxone for active urinary sediment pending cultures. Cultures ultimately grew out E coli sensitive to ceftriaxone and patient will be sent home on a course of Ceftin. On 11/27 patient underwent EGD which demonstrated a large polypoid mass with central ulceration the gastric body along the greater curvature extending from 36-58 cm and covering 75% of the gastric circumference. Biopsies were taken in this was discussed between GI and son. at the time of this dictation biopsy results are not available. She will follow-up with Dr. Becerril as an outpatient and discuss further plans based on forthcoming data Time Spent with Patient Time attestation: Total time managing care of this patient today ____ minutes. Discharge coordination time: Greater than 30 minutes Quality: Safe Use of Opioids Does Pt have an Active Cancer Diagnosis on the Problem List?: No Quality: Stroke Does the patient have a stroke diagnosis?: No Physical Exam Vital Signs: Vital Signs: Last Vital Signs Temp 97.0 F 11/29/22 07:49 Pulse 60 11/29/22 07:49 Resp 16 11/29/22 07:49 BP 109/68 11/29/22 07:49 Pulse Ox 96 11/29/22 07:49 O2 Del Method Room Air 11/29/22 07:49 BMI result Body Mass Index 23.2 Const: Other: awake alert lying comfortable in bed Resp: Other: clear to auscultation bilaterally no rales rhonchi or wheezes Cardio: Other: no S4; positive S1-S2; no S3 murmurs rubs or gallops GI: Other: soft nontender nondistended. Normal bowel sound Extrem: Other: no edema bilaterally DS: Data Data Completed and Pending Pending studies at discharge: Pending at discharge 11/27/22 15:04 Surgical [PTH] Routine Discharge Plan Discharge Anticipated Discharge Date/Time: 11/29/22 12:51 Patient Disposition: Home, Self-Care Discharge Diagnosis: Gastric Mass Referrals: Mis Gutierrez MD [Primary Care Provider] - 1 Week Discharge Medications: New oxycodone 5 mg Tablet 5 mg PO Q6H PRN (Reason: Pain, Moderate(Pain Scale 4-6)) Qty: 20 0RF Rx Instructions: Partial Fill upon patient request. cefuroxime axetil 500 mg tablet 500 mg PO BID 7 Days Qty: 14 0RF Continued fluticasone propionate 50 mcg/actuation spray,suspension 1 spray intranasal BID Incruse Ellipta 62.5 mcg/actuation blister with device 1 inh inhalation DAILY sennosides [senna] 8.6 mg tablet 8.6 - 17.2 mg PO DAILY PRN (Reason: Constipation) acetaminophen 325 mg Tablet 325 mg PO QID PRN (Reason: Pain) dicyclomine 20 mg tablet 20 mg PO QID PRN (Reason: abdominal pain) Qty: 20 0RF furosemide 20 mg tablet 20 mg PO DAILY PRN (Reason: Edema) albuterol sulfate 90 mcg/actuation HFA aerosol inhaler 2 puff inhalation Q4H PRN (Reason: Shortness Of Breath Or Wheezing) cyanocobalamin (vitamin B-12) 1,000 mcg tablet 1,000 mcg PO DAILY albuterol sulfate 2.5 mg /3 mL (0.083 %) solution for nebulization 2.5 mg inhalation Q4H PRN (Reason: Wheezing) atorvastatin 80 mg tablet 80 mg PO QPM omeprazole 20 mg capsule,delayed release(DR/EC) 20 mg PO DAILY cholecalciferol (vitamin D3) 125 mcg (5,000 unit) tablet 125 mcg PO DAILY loratadine 10 mg tablet 10 mg PO DAILY PRN (Reason: Allergic Symptoms) Discharge Orders: Discharge Order (Routine); Ordered 11/29/22 Ordered By: Trey Parish Diet: Advance to usual diet Activity on Discharge: As tolerated Stand Alone Forms: Patient Portal Discharge page Care Plan Goals: Dr. Becerril office will call you with appointment to follow-up with her in the office Health Concerns: you treated for urinary tract infection; will need to complete a course of Ceftin 500 mg twice daily for 1 week Plan of Treatment: follow-up with PCP in 2 weeks Assessment: as per discharge summary
[2022-11-29 16:00] VITALS: BP 106/67; PULSE 60; RESP 16; TEMP 36.4; O2SAT 96
--- NOTE | 2022-12-03 16:48 | P.CDIM_ITS ---
PROVIDER RESPONSE TEXT: To clarify, the appropriate diagnosis supported by the clinical indicators: Weight loss QUERY TEXT: PHYSICIAN'S DOCUMENTATION REQUEST Date of Query: 11/28/2022 09:55 AM EDT Patient Name: Delmy Ann Admit Date: 11/25/2022 Dear Trey Parish, A review of the medical record indicates additional documentation may be needed. Please review below and update the documentation accordingly. Clinical Indicators: Clinical nutrition notes 11/27 patient is malnourished, reported decreased intake x 3 months Significant weight loss x 2 months - 18.3 % Non severe moderate malnutrition due to reduced intake and significant weight loss. If possible, please provide an associated diagnosis related to the abnormal BMI, such as: Malnutrition mild, moderate or severe Weight loss Cachexia Anorexia Other Other (explain)Clinically unable to determine (explain)Thank you, Elly Guerrero, CCS, CDIS Use of terms such as suspected, likely, concern for, or probable (associated with a specific diagnosi s that is being evaluated, monitored, or treated as if it exists) are acceptable and can be coded in the inpatient se tting, when documented at the time of discharge. Please use your independent medical judgment in providing your response. THIS QUERY IS PART OF THE PERMANENT MEDICAL RECORD
== END 2022-11-29 15:30 | disposition home or self-care (01) | DRG 375 ==
LOC: HO.ED 14:16 → HO.EDOVER 14:34 → HO.S3 15:51
PROVIDERS: Internal Medicine Gastroenterology; Pathology Anatomic Pathology & Clinical Pathology; Admitting Provider Hospitalist; Emergency Provider Emergency Medicine; PCP Family Medicine; Visit Provider Hospitalist
PROC: 0DJ08ZZ Inspection of Upper Intestinal Tract, Via Natural or Artificial Opening Endoscopic (ICD-10-PCS; CPT 43235; principal; 2022-11-27 14:30)
DX: C16.2 Malignant neoplasm of body of stomach (principal); N39.0 Urinary tract infection, site not specified; R63.4 Abnormal weight loss; Z68.23 Body mass index [BMI] 23.0-23.9, adult; J45.909 Unspecified asthma, uncomplicated; K57.10 Diverticulosis of small intestine without perforation or abscess without bleeding; E78.5 Hyperlipidemia, unspecified; D50.0 Iron deficiency anemia secondary to blood loss (chronic); D63.0 Anemia in neoplastic disease; Z79.51 Long term (current) use of inhaled steroids; Z79.899 Other long term (current) drug therapy
CPT/HCPCS: 36415; 74177; 80053; 80061; 81001; 82378; 82728; 83540; 85025; 85027; 87086; 88305; 88341; 88342; 88360; 88365; 88374; 99284; J0696; J2270; J2405; Q9967

== ENCOUNTER → 2022-11-25 14:30 | Outpatient (BNV) | payer OTHER, SELFPAY | PROVIDERS: Admitting Provider Hospitalist; Emergency Provider Emergency Medicine; PCP Family Medicine; Visit Provider Internal Medicine Gastroenterology | DX: K29.70 Gastritis, unspecified, without bleeding (principal); R93.5 Abnormal findings on diagnostic imaging of other abdominal regions, including retroperitoneum; K57.10 Diverticulosis of small intestine without perforation or abscess without bleeding; C16.9 Malignant neoplasm of stomach, unspecified | CPT/HCPCS: 43239; 99232 ==

== ENCOUNTER → 2022-11-25 14:30 | Outpatient (BNV) | payer OTHER, SELFPAY | PROVIDERS: Admitting Provider Hospitalist; Emergency Provider Emergency Medicine; PCP Family Medicine; Visit Provider Internal Medicine Medical Oncology | DX: D37.1 Neoplasm of uncertain behavior of stomach (principal) | CPT/HCPCS: 99222 ==

== ENCOUNTER → 2022-11-25 14:30 | Outpatient (BNV) | payer OTHER, SELFPAY | PROVIDERS: Admitting Provider Hospitalist; Emergency Provider Emergency Medicine; PCP Family Medicine; Visit Provider Hospitalist | DX: C16.9 Malignant neoplasm of stomach, unspecified (principal) | CPT/HCPCS: 99223; 99232; 99233; 99239 ==

== ENCOUNTER 2022-12-26 12:22 | Day surgery (SDC) | payer OTHER, SELFPAY ==
[2022-12-26 12:38] VITALS: BP 98/54; PULSE 84; RESP 16; TEMP 37.1; O2SAT 98; BMI 22.7
[2022-12-26 12:42] LABS: Baso%MD 0.4 %; Eos%MD 1.9 %; Hematocrit 31.7 % (37.0-47.0); Hemoglobin 10.3 g/dl (12.0-16.0); IG%MD 0.4 %; Lymph%MD 16.3 %; Mean Corpuscular HGB Conc 32.5 g/dl (31.0-35.0); Mean Corpuscular Hemoglobin 26.7 pg (27.0-33.0); Mean Corpuscular Volume 82.1 fL (80.0-98.0); Mean Platelet Volume 9.7 fL (9.4-12.3); Mono%MD 7.8 %; Neut%MD 73.2 %; Platelet Count 382 X10*3/uL (160-400); Red Blood Count 3.86 X10*6/uL (4.20-5.50); White Blood Count 13.4 X10*3/uL (4.8-10.8)
[2022-12-26 12:48] LABS: Prothrombin Time 12.3 SEC (11.1-13.3)
--- NOTE | 2022-12-26 12:48 | P.CONAN_ITS ---
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 [facility] Active Problems Active Problems: All Active Problems (Updated 12/15/22 @ 13:37 by Rowena Becerril MD) BPPV (benign paroxysmal positional vertigo) (Acute) Iliotibial band syndrome of right side (Acute) Osteoarthritis of right knee (Acute) Trochanteric bursitis, right hip (Acute) Gastric mass (Acute) Gastric lymphoma (Acute) Kidney disease (Acute) Asthma (Acute) Past Medical History Medical History Abnormal CT of the abdomen Anemia Asthma Kidney disease Stomach cancer Family History Family history of problems with anesthesia: No Surgical History Surgical History History of bladder surgery History of cholecystectomy Tubal ligation status History of Problems with Anesthesia: No Social History Social History Household Members: Family Housing: Apartment Do you presently have visiting nurse or other home services: No Patient Tobacco Use Status: Never used Tobacco Use of substances other than those prescribed or required for medical reasons: No Are you DNR?: No Advance Directives: No Advance Directives Information Provided: Yes Advance Directives Date on File: 02/12/20 service: No 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al status: disabled 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: r handed Meds Allergies Allergy/AdvReac Type Severity Reaction Status Date / Time codeine [CODEINE] Allergy Intermediate RASH Verified 12/26/22 12:34 ibuprofen [From MOTRIN] Allergy Intermediate RASH Verified 12/26/22 12:34 Penicillins [PENICILLINS] Allergy Intermediate RASH Verified 12/26/22 12:34 motrin Allergy Unknown rash, Uncoded 12/26/22 12:34 swelling PCN Allergy Unknown rash, Uncoded 12/26/22 12:34 swelling Home Medications Medication Instructions Recorded Confirmed Last Taken Type albuterol sulfate 90 mcg/actuation 2 puff inhalation Q4H PRN 10/10/21 12/26/22 Unknown History aerosol inhaler Shortness Of Breath Or Wheezing atorvastatin 80 mg tablet 80 mg PO QPM 10/10/21 12/26/22 Unknown History cholecalciferol (vitamin D3) 125 125 mcg PO DAILY 10/10/21 12/26/22 Unknown History mcg (5,000 unit) tablet cyanocobalamin (vitamin B-12) 1,000 mcg PO DAILY 10/10/21 12/26/22 Unknown History 1,000 mcg tablet furosemide 20 mg tablet 20 mg PO DAILY PRN Edema 10/10/21 12/26/22 Unknown History loratadine 10 mg tablet 10 mg PO DAILY PRN Allergic 10/10/21 12/26/22 Unknown History Symptoms omeprazole 20 mg capsule,delayed 20 mg PO DAILY 10/10/21 12/26/22 Unknown History release acetaminophen 325 mg tablet 325 mg PO QID PRN Pain 11/25/22 12/26/22 12/26/22 10:30 History 325 mg fluticasone propionate 50 1 spray intranasal BID 11/25/22 12/26/22 Unknown History mcg/actuation nasal spray,suspension sennosides 8.6 mg tablet (senna) 8.6 - 17.2 mg PO DAILY PRN 11/25/22 12/26/22 Unknown History Constipation umeclidinium 62.5 mcg/actuation 1 inh inhalation DAILY 11/25/22 12/26/22 Unknown History blister powder for inhalation (Incruse Ellipta) Exam Exam Date and Time: December 26, 2022 1248 Height,Weight and Vital Signs: Height 5 ft Weight 52.617 kg Last Vital Signs Temp 98.8 F 12/26/22 12:38 Pulse 84 12/26/22 12:38 Resp 16 12/26/22 12:38 BP 98/54 L 12/26/22 12:38 Pulse Ox 98 12/26/22 12:38 O2 Del Method Room Air 12/26/22 12:38 Pertinent Lab Results Pertinent Lab Results: Laboratory Tests 12/26/22 12:34 WBC 13.4 H RBC 3.86 L Hgb 10.3 L Hct 31.7 L MCV 82.1 MCH 26.7 L MCHC 32.5 RDW 15.0 Plt Count 382 MPV 9.7 Absolute Nucleated RBC 0.000 Nucleated RBC % (auto) 0.0 Airway Mallampati Class: II TM Dist: <=3cm Neck ROM: Limited Denture: Upper Partial: Lower Heart: rrr Lungs: cta Assessment and Plan Assessment Anesthesia Assessment: Anesthesia Plan Discussed and Chart Reviewed Final Anesthetic Review Family History of Problems with Anesthesia: No History of Problems with Anesthesia: No NPO: Yes ASA Class: III Final Preanesthetic Review: No Changes in Pt Med Stat, Meds/Allgs Chart Reviewed, Consent Obtained/Reviewed and Anes Risks/Benef Reviewed Patient Risk: Low Procedure Risk: Low Anesthetic Plan Anesthetic Plan: MAC: Disposition: Standard PACU
[2022-12-26 12:51] LABS: Partial Thromboplastin Time 28.4 SEC (26.0-36.4)
[2022-12-26] MEDS: Lactated Ringers 1,000 ML 50 ML IVCONT (13:35)
[2022-12-26 13:50] VITALS: BP 115/46; PULSE 73; RESP 14; TEMP 36.9; O2SAT 98
[2022-12-26 14:01] LABS: Bone Marrow SEE SEPARATE REPORT
[2022-12-26 14:05] VITALS: BP 104/58; PULSE 71; RESP 18; TEMP 36.5; O2SAT 97
[2022-12-26 14:20] LABS: Band Neutrophils Percent 0 % (3-5); Lymphocytes Absolute Manual 2.8 X10*3/uL (1.2-4.9); Lymphocytes Percent Manual 21 % (20-40); Monocytes Absolute Manual 0.4 X10*3/uL (0.1-1.2); Monocytes Percent Manual 3 % (2-11); Neutrophils Absolute Manual 10.2 X10*3/uL (2.0-8.3); Neutrophils Percent Manual 76 % (45-73)
[2022-12-26 14:21] LABS: Hypochromasia 1+ (5-14) /OIF; Platelet Estimate NORMAL (NORMAL); Platelet Morphology Comment NORMAL; RBC Morphology NOTED
--- NOTE | 2022-12-26 16:43 | PM.HEMONCBM ---
Bone Marrow Aspiration - Bone Marrow Aspiration Procedure:: *Service Date: [12/26/22] Bone marrow aspiration and biopsy. Pre Op Diagnosis:: Gastric lymphoma. Post Op Diagnosis:: Same. Surgeon:: Rowena Becerril. Anesthesia:: MAC. Consent:: Informed consent obtained from the patient for the procedure. Pros and cons of biopsy explained. The patient was willing to proceed with the procedure under MAC and local anesthesia. Procedure in Detail:: *Service Date: 12/26/22. *Procedure: Bone marrow aspirate and biopsy. *Pre Op Dx: Gastric lymphoma. *Post Op Dx: Same. *Surgeon: Rowena Becerril. The patient was positioned prone and the left posterior superior iliac spine prepped and draped. Patient was anesthetized under MAC. Under aseptic precautions, 5 ml of 1% lidocaine used for local anesthesia. Bone marrow aspirate was taken. With the Jamshidi needle, a core biopsy obtained without any complications. Specimens were sent for Waldron stain, flow cytometry and cytogenetics. Biopsy was sent for histology. The patient tolerated the procedure well. Bandage was applied and patient was positioned on her back for 10 to 15 minutes after the procedure. The patient was advised to call us if she develops any pain or swelling at the surgical site. Follow up in one week.
== END 2022-12-26 14:30 | disposition home or self-care (01) ==
PROVIDERS: PCP Family Medicine; Visit Provider Internal Medicine Medical Oncology
PROC: (CPT 38221; principal; 2022-12-26 13:00)
DX: C83.33 Diffuse large B-cell lymphoma, intra-abdominal lymph nodes (principal); R10.9 Unspecified abdominal pain; R63.4 Abnormal weight loss; R68.81 Early satiety; N28.89 Other specified disorders of kidney and ureter; K86.89 Other specified diseases of pancreas; J45.909 Unspecified asthma, uncomplicated; D64.9 Anemia, unspecified; R61 Generalized hyperhidrosis; K59.00 Constipation, unspecified; R82.81 Pyuria; K57.30 Diverticulosis of large intestine without perforation or abscess without bleeding; Z80.3 Family history of malignant neoplasm of breast; Z79.51 Long term (current) use of inhaled steroids; Z79.899 Other long term (current) drug therapy; Z87.891 Personal history of nicotine dependence; Z88.0 Allergy status to penicillin; Z88.8 Allergy status to other drugs, medicaments and biological substances; Z88.5 Allergy status to narcotic agent
CPT/HCPCS: 38222; 36415; 85007; 85027; 85610; 85730; 88184; 88185; 88237; 88264; 88305; 88311; 88313; J1642; J2371; J3010

== ENCOUNTER → 2022-12-26 12:22 | Outpatient (BNV) | payer OTHER, SELFPAY | PROVIDERS: PCP Family Medicine; Visit Provider Internal Medicine Medical Oncology | DX: C85.99 Non-Hodgkin lymphoma, unspecified, extranodal and solid organ sites (principal) | CPT/HCPCS: 38222 ==

== ENCOUNTER → 2022-12-26 13:00 | Outpatient (BNV) | payer OTHER, SELFPAY | PROVIDERS: PCP Family Medicine; Visit Provider Internal Medicine Medical Oncology | DX: C85.99 Non-Hodgkin lymphoma, unspecified, extranodal and solid organ sites (principal) | CPT/HCPCS: 99212; 99213; 99214 ==

== ENCOUNTER → 2022-12-28 13:55 | Outpatient (REF) | payer OTHER, SELFPAY ==
--- NOTE | 2022-12-28 13:58 | CA_ITS ---
Transthoracic Echocardiogram Patient (Last, First, Middle): Delmy Ann L Gender: Female Date of : 1945 Age: 77 Procedure Date: 12/28/2022 Procedure Type: Transthoracic Echocardiogram Location: OP Height: 152.4 cm Weight: 53.07 kg BSA: 1.49 m2 Heart Rate: bpm BP: 100 / 60 mmHg Oem Sales Manager: TO Referring MD: Rowena Becerril MD Symptoms: prechemotherapy evaluation Study Quality: Fair/Contrast ECG Rhythm: Sinus Conclusions: - The left ventricular systolic function is normal. The calculated ejection fraction is 59% by biplane method. - There is mild tricuspid valve regurgitation. - Mild pulmonary hypertension is present. Findings Procedure Information Contrast agent, definity, is being given per protocol without apparent complications. Left Ventricle Normal left ventricular cavity size. There is normal left ventricular wall thickness. The left ventricular systolic function is normal. The calculated ejection fraction is 59% by biplane method. There is no evidence of regional wall motion abnormalities. Evidence suggests grade I (mild) diastolic dysfunction. LV peak GLS -15.2%, but endocardium not well seen and hence question accuracy. Right Ventricle Normal right ventricular cavity size and systolic function. Atria Both atria are normal in size. Aortic Valve There is mild calcification of the aortic valve. There is no aortic valve stenosis. There is no aortic valve regurgitation. Mitral Valve The mitral valve appears normal. There is trace mitral valve regurgitation. There is no mitral valve stenosis. Pulmonic Valve The pulmonic valve is likely normal. Tricuspid Valve Normal tricuspid valve structure. There is mild tricuspid valve regurgitation. Mild pulmonary hypertension is present. Great Vessels The asc aorta is normal in size. Venous The inferior vena cava is normal in size and collapses greater than 50% with inspiration. Pericardium/Pleural There is no evidence of pericardial effusion. Prior Study Comparison No prior study available for comparison. Measurements 2D Linear Measurements IVSd: 0.93 0.6-0.9/0.6-1.0 cm LVIDd: 3.73 3.9-5.3/4.2-5.9 cm LVIDd Index: 2.50 2.4-3.2/2.2-3.1 cm/m2 LVIDs: 2.39 2.0-3.6 cm LVPWd: 0.79 0.7-1.1 cm LA Diam: 2.50 2.7-3.8/3.0-4.0 cm LAIDs Index: 1.68 1.5-2.3 cm/m2 LV Mass: 114.29 67-162/88-224 g LV Mass Index: 76.70 43-95/49-115 g/m2 LVOT Diam: 1.80 3.0+(-)1.3 cm 2D Systolic Function EF 4C: 60.70 >55% EF 2C: 58.10 >55% EF BiP: 59.00 >55% Mitral Valve MV Pk E: 0.63 MV PK A: 0.79 MV Decel Time: 242.00 E/A: 0.80 E'Lateral: 7.18 E'Medial: 5.11 E/E' Med: 12.40 E/E' Lat: 8.80 PHT: 71.00 MVA PHT: 3.10 Decel [place]: 2.62 Aortic Valve AoV Pk Yaya: 1.48 AoV Mn Yaya: 1.00 AoV VTI: 0.26 AoV Pk Grad: 9.00 Aov Mn Grad: 5.00 ALISE Cont.VTI: 2.00 LVOT LVOT Pk Yaya: 0.89 LVOT Mn Yaya: 0.57 LVOT VTI: 0.20 LVOT Pk Grad: 3.00 LVOT Mn Grad: 2.00 LVOT Diam: 1.80 LVOT Area: 2.54 Diastolic Function MV Pk E: 0.63 MV Pk A: 0.79 E/A: 0.80 E'Medial: 5.11 E/E' Med: 12.40 E' Laterial: 7.18 E/E' Lat: 8.80 Right Ventricle TAPSE (mm): 21.90 TVS' Yaya: 11.00 Tricuspid Valve TR Pk Yaya: 2.89 TR Pk Grad: 33.00 RA Press: 3.00 RVSP: 36.00 Great Vessels Aorta Sinus of Valsalva: 2.60 2.0-3.5 cm Ao Asc: 2.50 2.1-3.4 cm Updated in Other Vendor System with Status of Final Jose Prado MD electronically signed on 12/29/2022 2:20:43 PM with status of Final
== END ==
LOC: HO.CARD 13:55
PROVIDERS: Visit Provider Internal Medicine Medical Oncology
DX: C83.30 Diffuse large B-cell lymphoma, unspecified site (principal)
CPT/HCPCS: 93306; 93356; Q9957

== ENCOUNTER → 2022-12-28 13:58 | Outpatient (BNV) | payer OTHER, SELFPAY | PROVIDERS: Visit Provider Internal Medicine | DX: I36.1 Nonrheumatic tricuspid (valve) insufficiency (principal) | CPT/HCPCS: 93306 ==

== ENCOUNTER 2023-01-02 06:52 | Day surgery (SDC) | payer OTHER, SELFPAY ==
--- NOTE | ~2023-01-02 | IR_ITS ---
PROCEDURE: IR INSERTION OF TUNNELED PORT CATHETER CLINICAL INFORMATION: History of lymphoma After informed and written consent was obtained an official timeout was performed immediately prior to the procedure. I was personally responsible for the administration of moderate sedation services, all requirements were followed, an independent trained observer was utilized. COMPARISON: None available. TECHNIQUE: All elements of maximal sterile barrier technique followed including use of cap, mask, sterile gown, sterile gloves, a sterile full body drape and hand hygiene. Also followed skin preparation with 2% chlorhexidine for cutaneous antisepsis, and sterile ultrasound preparation with sterile gel and probe cover when applicable. Under ultrasound guidance a micropuncture needle was placed into the right internal jugular vein. A guidewire and catheter were advanced into the right atrium. A 6 [place] peel-away sheath was placed. A subcutaneous pocket was created along the anterior chest wall. The port was placed within the pocket with the catheter tunneled beneath the skin surface and subsequently through the peel-away sheath into the midportion of the right atrium. The port was accessed and easily flushed. Heparinized saline was then infused. The incision was closed with 3-0 subcutaneous Vicryl sutures as well as 2 absorbable sutures to close the wound. FINDINGS: Successful placement of a angeliak catheter via the right internal jugular approach IR/IR cvc insert tunnel w prt/patient registration rep IMPRESSION: Portacatheter placement
[2023-01-02 07:09] VITALS: BMI 22.8
[2023-01-02 07:36] LABS: MANUAL DIFF FLAG NO
[2023-01-02 07:38] LABS: Basophils Absolute Auto 0.1 X10*3/uL (0.0-0.2); Basophils Percent Auto 0.5 % (0-2); Eosinophils Absolute Auto 0.4 X10*3/uL (0.0-0.4); Eosinophils Percent Auto 4.2 % (0-4); Hematocrit 28.7 % (37.0-47.0); Hemoglobin 9.4 g/dl (12.0-16.0); Imm Gran Abs Auto 0.05 X10*3/uL (0.00-0.03); Imm Gran Pct Auto 0.5 % (0.0-0.4); Lymphocytes Absolute Auto 1.7 X10*3/uL (1.2-4.9); Lymphocytes Percent Auto 17.3 % (20-40); Mean Corpuscular HGB Conc 32.8 g/dl (31.0-35.0); Mean Corpuscular Hemoglobin 26.9 pg (27.0-33.0); Mean Platelet Volume 9.7 fL (9.4-12.3); Monocytes Absolute Auto 0.8 X10*3/uL (0.1-1.2); Monocytes Percent Auto 8.2 % (2-11); Neutrophils Absolute Auto 6.9 x10*3/uL (2.0-8.3); Neutrophils Percent Auto 69.3 % (45-73); Platelet Count 332 X10*3/uL (160-400); Red Cell Distribution Width 15.2 % (11.0-16.0); White Blood Count 9.9 X10*3/uL (4.8-10.8)
[2023-01-02 07:50] LABS: Prothrombin Time 12.4 SEC (11.1-13.3)
[2023-01-02 07:52] LABS: Partial Thromboplastin Time 29.6 SEC (26.0-36.4)
[2023-01-02 10:05] VITALS: BP 104/47; PULSE 89; RESP 16; TEMP 36.1; O2SAT 98
[2023-01-02] MEDS: Lidocaine HCl 1%/Epi 1:100,000 10 ML VIAL SUBCUT (10:06)
[2023-01-02] MEDS: Lidocaine HCl 1 % MPF 5 ML VIAL 6 ML SUBCUT (10:06)
[2023-01-02 10:20] VITALS: BP 104/47; PULSE 77; RESP 12; O2SAT 98
[2023-01-02 10:35] VITALS: BP 111/53; PULSE 76; RESP 11; O2SAT 97
[2023-01-02 10:50] VITALS: BP 108/54; PULSE 76; RESP 15; TEMP 36.4; O2SAT 97
== END 2023-01-02 11:07 | disposition home or self-care (01) ==
PROVIDERS: Radiology Diagnostic Radiology; Radiology Vascular & Interventional Radiology; PCP Family Medicine; Visit Provider Internal Medicine Medical Oncology
DX: Z45.2 Encounter for adjustment and management of vascular access device (principal); C83.33 Diffuse large B-cell lymphoma, intra-abdominal lymph nodes; E78.5 Hyperlipidemia, unspecified; N28.9 Disorder of kidney and ureter, unspecified; J45.909 Unspecified asthma, uncomplicated; Z79.51 Long term (current) use of inhaled steroids; Z79.899 Other long term (current) drug therapy
CPT/HCPCS: 36415; 36561; 85025; 85610; 85730; 99152; 99153; C1769; C1788; J0690; J1642; J2250; J3010

== ENCOUNTER → 2023-01-02 08:13 | Outpatient (BNV) | payer OTHER, SELFPAY | PROVIDERS: PCP Family Medicine; Visit Provider Radiology Vascular & Interventional Radiology | DX: C85.99 Non-Hodgkin lymphoma, unspecified, extranodal and solid organ sites (principal) | CPT/HCPCS: 36561; 77001 ==

== ENCOUNTER → 2023-01-02 08:30 | Outpatient (BNV) | payer OTHER, SELFPAY | PROVIDERS: PCP Family Medicine; Visit Provider Internal Medicine Medical Oncology | DX: C85.99 Non-Hodgkin lymphoma, unspecified, extranodal and solid organ sites (principal) | CPT/HCPCS: 38222 ==

== ENCOUNTER 2023-01-10 10:19 | Day surgery (SDC) | payer OTHER, SELFPAY ==
--- NOTE | ~2023-01-10 | FL_ITS ---
EXAMINATION: XR LUMBAR PUNCTURE CLINICAL INFORMATION: Diffuse large B-cell lymphoma. Confusion. Evaluate for metastatic disease COMPARISON: None available. TECHNIQUE: Following explaining lumbar puncture procedure, benefits and risks through a nursing informatics specialist, a written consent was obtained. Patient was placed prone on fluoroscopy table and a marker placed overlying the L4-L5 disc level. 1% lidocaine was injected at puncture site. Area was cleaned and draped in usual sterile manner with 2% chlorhexidine solution. 1% lidocaine was injected at the skin. A 22-gauge spinal needle was inserted from the skin intrathecally at the L4-L5 disc level. The stylet was removed and CSF was collected in 4 test tubes. The stylet was reintroduced and needle withdrawn. Complete hemostasis was achieved at puncture site. Sterile Band-Aid applied postprocedure. Patient tolerated procedure extremely well. FINDINGS: Fluoroscopy-guided L4-L5 lumbar puncture performed with approximately 9 mL left clear CSF fluid collected in 4 test tubes and sent to lab. Visualized lower lumbar spine is unremarkable. FLUOROSCOPY TIME: 0.5 minutes DOSE AREA PRODUCT: 1.796 uGy-m2 (microgray-meter squared) FL/FL guided lumbar puncture LP IMPRESSION: Successful fluoroscopy-guided L4-L5 lumbar puncture performed without immediate complications.
[2023-01-10 11:04] VITALS: BMI 21.5
[2023-01-10 13:30] VITALS: BP 94/54; RESP 17; O2SAT 98
[2023-01-10 14:00] VITALS: BP 95/58; RESP 14; O2SAT 99
[2023-01-10 14:04] LABS: CSF Tube # 1
[2023-01-10 14:19] LABS: CSF Appearance Clear, Colorless
[2023-01-10 14:30] VITALS: BP 102/57; RESP 16; O2SAT 99
[2023-01-10 14:31] LABS: Glucose CSF 55 mg/dL; Total Protein CSF 31.1 mg/dL (15-45)
[2023-01-10 14:46] LABS: Appearance CSF CLEAR; CSF Tube # 4; Color CSF COLORLESS; White Blood Cell CSF 6 MM*3
[2023-01-10 14:47] LABS: CSF Monos 22 %; Lymphocytes CSF 74 %; Neutrophils CSF 4 %; Red Blood Cell CSF 15 MM*3
[2023-01-10 15:00] VITALS: BP 112/66; RESP 14; O2SAT 99
[2023-01-10 15:30] VITALS: BP 114/65; PULSE 78; RESP 14; TEMP 36.7; O2SAT 99
[2023-01-13 12:04] LABS: VDRL Qualitative CSF Nonreactive (Nonreactive)
== END 2023-01-10 15:49 | disposition home or self-care (01) ==
LOC: HO.SSS 10:20
PROVIDERS: Internal Medicine Medical Oncology; PCP Family Medicine; Visit Provider Radiology Diagnostic Radiology
PROC: 009U3ZZ Drainage of Spinal Canal, Percutaneous Approach (ICD-10-PCS; CPT 62270; principal; 2023-01-10 12:00)
DX: C85.99 Non-Hodgkin lymphoma, unspecified, extranodal and solid organ sites (principal); D64.9 Anemia, unspecified; N28.9 Disorder of kidney and ureter, unspecified; E87.5 Hyperkalemia; J45.909 Unspecified asthma, uncomplicated; Z79.51 Long term (current) use of inhaled steroids; Z79.899 Other long term (current) drug therapy
CPT/HCPCS: 62328; 82945; 84157; 86592; 87015; 87070; 87205; 88108; 89051

== ENCOUNTER → 2023-01-10 12:03 | Outpatient (BNV) | payer OTHER, SELFPAY | PROVIDERS: PCP Family Medicine; Visit Provider Radiology Diagnostic Radiology | DX: C85.10 Unspecified B-cell lymphoma, unspecified site (principal) | CPT/HCPCS: 62328 ==

== ENCOUNTER 2023-01-16 07:32 | Outpatient (REF) | payer OTHER, SELFPAY ==
--- NOTE | ~2023-01-16 | PE_ITS ---
EXAMINATION: Fluorine-18 FDG PET/CT Scan CLINICAL INDICATION: Initial treatment management. Diffuse large B-cell lymphoma. PROCEDURE: 65 minutes following the intravenous administration of 14.3 mCi of fluorine 18 FDG, images from the base of the skull to the mid thighs were obtained using a combined PET/CT scanner with CT scan based attenuation correction. No intravenous contrast was administered. Transverse, coronal, sagittal, and volume reconstruction projections were obtained. The patient's blood glucose as determined by a finger stick, was 112 mg/dl immediately prior to injection. The radiotracer was injected intravenously through the left antecubital superficial vein, without any complications. Total CT exam dose-length product 319.49 mGy-cm * These CT images were obtained using dose optimization techniques as appropriate, variously including the following: Automated exposure control * Adjustment of mA and/or kV according to patient size (this includes techniques or standardized protocols for targeted exams where dose is matched to indication/reason for exam; i.e. extremities or head) * Use of iterative reconstruction technique COMPARISON: CT of the abdomen and pelvis done on 11/25/2022 and 09/30/2022. FINDINGS: METABOLIC REFERENCE: Mediastinal blood pool: 2.7 (58/223). Liver : 3.5 (109/223). NECK AND VISUALIZED HEAD: Asymmetric increased tracer avidity is noted involving the left tonsillar fossa with SUV max of 6.4 (90/223). There are no tracer avid cervical lymphadenopathy or soft tissue mass. There is a right-sided Port-A-Cath present with its tip seen projecting at the cavoatrial junction. THORAX: No tracer avid disease. Specifically, no evidence of any lung parenchymal or pleural or mediastinal disease or pleural or pericardial effusion. There are no axillary or internal mammary lymphadenopathy. ABDOMEN AND PELVIS: No evidence of any focal liver or splenic disease or evidence of hepatosplenomegaly. The gallbladder is surgically absent. The pancreas shows mild diffuse atrophy, better visualized on prior recent CT of the abdomen and pelvis done on 11/25/2022. No evidence of any adrenal lesion. Both kidneys, both renal pelvicalyceal system and both ureters and the bladder appear unremarkable. The stomach is abnormal. Marked mural thickening associated with intense FDG avidity is noted at the fundus and body of the stomach extending along both the greater as well as the lesser curvatures. The focus of dominant mural thickening measures approximately 2.6 cm with SUV max of 20.7 (104/223). There is no evidence of any gastric obstruction present. The pylorus of the stomach appear unremarkable. Corresponding to previously documented lobulated solid-appearing soft tissue confluent masses along the lesser curvature of the stomach in the region of the gastrohepatic ligament and adjacent part of the common hepatic artery show intense tracer avidity. The dominant solid mass seen at the level of the common hepatic artery measures approximately 4.2 x 2.1 cm with SUV max of 45.4 (115/223), most consistent with extensive local/regional lymph node disease extension. There are no additional tracer avid lymph nodes identified within the retroperitoneum or mesentery or pelvis or groin. Specific note is made of intense focal FDG avidity associated with mural thickening involving cecum and proximal ascending colon with SUV max of 11.2 (150/223), may also represent additional sites of disease involvement. Follow-up direct visualization/colonoscopy may be considered for further confirmation, if clinically appropriate. MUSCULOSKELETAL: Mild apparent increased tracer avidity is noted within the axial skeleton, may represent changes secondary to mild diffuse bone marrow involvement or hyperplastic marrow or combination thereof. No discrete focal tracer avid disease identified within the visualized bones. VASCULAR: Calcific atherosclerotic disease of the aorta including coronary arterial calcifications. No evidence of aneurysm. THE SITE(S) OF MOST INTENSE FDG AVIDITY AND SUV MAX: Confluent solid perigastric lymphadenopathy with the dominant lymph node measuring 4.2 x 2.1 cm with SUV max of 45.4 (115/223). Thickened stomach shows SUV max of 20.7 (104/223). The cecum and proximal ascending colon shows SUV max of 11.2 (149/223). PET/PET CT fusion skull to thigh IMPRESSION: 1. Asymmetric increase tracer avidity is noted with SUV max of 6.4 without evidence of any discrete mass involving the left tonsillar fossa, may represent reactive changes. 2. Significant mural thickening associated with intense FDG avidity involving the fundus and body of the stomach with SUV max of 20.7 consistent with gastric involvement in this patient with diffuse large B-cell lymphoma. Specific note is made of perigastric solid intense FDG avid lymph nodes within the lesser omentum/gastrohepatic ligament region as well as in the region of the common hepatic artery. The dominant lymph node measures 4.2 x 2.1 cm with SUV max of 45.4. 3. Note is also made of intense FDG avidity associated with circumferential mural thickening of the cecum and adjacent proximal ascending colon with SUV max of 11.2, for which direct visualization/colonoscopy is recommended for further clarification. 4. Apparent mild increase tracer avidity throughout the entire axial skeleton, may represent hyperplastic marrow versus bone marrow infiltration or combination thereof. 5. No evidence of any lung parenchymal or liver or splenic involvement.
== END 2023-01-16 07:33 | disposition home or self-care (01) ==
LOC: HO.PET 07:32
PROVIDERS: PCP Family Medicine; Visit Provider Internal Medicine Medical Oncology
DX: Z13.89 Encounter for screening for other disorder (principal)

== ENCOUNTER 2023-01-29 08:02 | Inpatient (IN) | payer OTHER, SELFPAY ==
[2023-01-29] VITALS (9 sets, daily range): BP systolic 63–146; BP diastolic 38–82; PULSE 73–100; RESP 13–20; TEMP 35.9–37; O2SAT 98–100; BMI 19.7
--- NOTE | ~2023-01-29 | CT_ITS ---
EXAMINATION: CT of the abdomen and pelvis with and without IV contrast CLINICAL INFORMATION: Anemia. Occult blood in stool. History of gastric cancer. COMPARISON: Previous CT scans most recent November 2022 TECHNIQUE: Axial images abdomen pelvis with without IV contrast. Sagittal and coronal reconstructions on the technologist workstation were performed. This CT examination was performed using dose optimization techniques as appropriate, variously including the following: *Automated exposure control *Adjustment of mA and/or kV according to patient size (this includes techniques or standardized protocols for targeted exams where dose is matched to indication/reason for exam; i.e. extremities or head) *Use of iterative reconstruction technique DLP 866 mgy/cm FINDINGS: The lung bases are clear. The liver is normal. The gallbladder is been removed. There is no biliary duct dilatation. The pancreas, spleen, adrenal glands and kidneys are normal. Bladder is normal are normal. There is diffuse wall thickening and enhancement of the stomach. There is diffuse submucosal edema. There is stranding of fat surrounding the stomach and surrounding lymph nodes. Compatible with patient's history of known gastric cancer. No evidence of active GI bleeding is seen. The small bowel is normal. There is mild diverticulosis. Appendix is normal There are enlarged perigastric lymph nodes. Largest lymph node is near the portal splenic confluence and measures 1.6 x 2.8 cm and demonstrates evidence of enhancement. There are smaller nonenhancing or more necrotic-appearing lymph nodes, largest measuring 1.2 cm in the gastrohepatic region. Stranding of the fat surrounding the stomach and small peritoneal nodules questionable peritoneal disease for example measuring 4 mm adjacent to the anterior spleen axial image 22 series 47. This does not appear appreciably changed from prior exam November 2022. No ascites. No hernia. Atherosclerotic disease. No aneurysm. No ascites. Uterus and adnexa are unremarkable. Degenerative changes of the spine and hip joints. No focal bone lesion. CT/CT gi bleed abd pel wo/w IVcon IMPRESSION: No evidence of active GI bleed. Abnormal appearance to the stomach, enlarged perigastric lymph nodes, stranding of the fat surrounding the stomach and likely peritoneal disease which appears unchanged from November 2022 exam. Diverticulosis of the colon. No evidence of diverticulitis.
--- NOTE | ~2023-01-29 | XR_ITS ---
EXAMINATION: XR CHEST CLINICAL INFORMATION: Shortness of breath COMPARISON: Chest 09/30/2022 TECHNIQUE: AP upright portable view of the chest was obtained. 9:47 AM FINDINGS: No significant abnormality is noted involving the heart, lungs, mediastinum or soft tissues. Surgical tacks are seen within the left humeral head. The tip of a right subclavian Port-A-Cath is in the proximal right atrium. No pneumothorax. Surgical clips are seen in the right upper quadrant. XR/XR chest 1V IMPRESSION: No acute disease. The tip of a right subclavian Port-A-Cath is in the proximal right atrium.
--- NOTE | 2023-01-29 08:55 | ED_ITS ---
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 Becerril, anemia, asthma, renal disease, presenting to ED with son complaining of decreased p.o. intake x yesterday w/acute on chronic epigastric abdominal pain, nausea, bilateral LE fatigue/weakness, & lightheadedness x1 mos. reports only drinking water /juice, food intake decreased. Also reports acute on chronic exertional dyspnea x1 mos. denies known fever/chills, chest pain, vomiting/diarrhea, dysuria/hematuria Related Data Home Medications Medication Instructions Recorded Confirmed albuterol sulfate 90 mcg/actuation 2 puff inhalation Q4H PRN 10/10/21 01/05/23 aerosol inhaler Shortness Of Breath Or Wheezing atorvastatin 80 mg tablet 80 mg PO QPM 10/10/21 01/05/23 cholecalciferol (vitamin D3) 125 125 mcg PO DAILY 10/10/21 01/05/23 mcg (5,000 unit) tablet cyanocobalamin (vitamin B-12) 1,000 mcg PO DAILY 10/10/21 01/05/23 1,000 mcg tablet furosemide 20 mg tablet 20 mg PO DAILY PRN Edema 10/10/21 01/05/23 loratadine 10 mg tablet 10 mg PO DAILY PRN Allergic 10/10/21 01/05/23 Symptoms omeprazole 20 mg capsule,delayed 20 mg PO DAILY 10/10/21 01/10/23 release acetaminophen 325 mg tablet 325 mg PO QID PRN Pain 11/25/22 01/10/23 fluticasone propionate 50 1 spray intranasal BID 11/25/22 01/05/23 mcg/actuation nasal spray,suspension sennosides 8.6 mg tablet (senna) 8.6 - 17.2 mg PO DAILY PRN 11/25/22 01/05/23 Constipation umeclidinium 62.5 mcg/actuation 1 inh inhalation DAILY 11/25/22 01/05/23 blister powder for inhalation (Incruse Ellipta) albuterol sulfate 2.5 mg/3 mL 2.5 mg inhalation Q4H PRN Wheezing 01/29/23 (0.083 %) solution for nebulization bisacodyl 5 mg tablet,delayed 5 mg PO DAILY PRN constipation 01/29/23 release dexamethasone 4 mg tablet 4 mg PO BID PRN day 2 or 3 of chemo 01/29/23 diphenhydramine HCl 25 mg capsule 25 mg PO Q4-6H PRN Itching 01/29/23 pantoprazole 40 mg tablet,delayed 40 mg PO QAM 01/29/23 release Previous Rx's Medication Instructions Recorded dicyclomine 20 mg tablet 20 mg PO QID PRN abdominal pain 09/30/22 #20 tabs oxycodone 5 mg tablet 5 mg PO Q6H PRN Pain, 11/29/22 Moderate(Pain Scale 4-6) #20 tabs ondansetron 8 mg disintegrating 8 mg PO Q8H #60 tabs 01/16/23 tablet prednisone 20 mg tablet 60 mg (3 x 20 mg) PO DAILY #100 01/16/23 tabs sulfamethoxazole 800 1 tab PO DAILY #60 tabs 01/22/23 mg-trimethoprim 160 mg tablet (Bactrim DS) Allergies Allergy/AdvReac Type Severity Reaction Status Date / Time codeine [CODEINE] Allergy Intermediate RASH Verified 01/10/23 11:02 ibuprofen [From MOTRIN] Allergy Intermediate RASH Verified 01/10/23 11:02 Penicillins [PENICILLINS] Allergy Intermediate RASH Verified 01/10/23 11:02 motrin Allergy Unknown rash, Uncoded 01/10/23 11:02 swelling PCN Allergy Unknown rash, Uncoded 01/10/23 11:02 swelling Review of Systems 2 Review of Systems: Constitutional: No Fever, + Chills, + Fatigue, + Malaise ENT/Mouth: No Ear Pain, No Nasal Congestion, No Sinus Pain, No Hoarseness, No sore throat, No Rhinorrhea, No Swallowing Difficulty Eyes: No Eye Pain, No Swelling, No Redness, No Vision Changes Cardiovascular: No Chest Pain, No SOB, + Dyspnea on Exertion, No Orthopnea, No Edema, No Palpitations Respiratory: No Cough, No Sputum, No Dyspnea Gastrointestinal: +Nausea, No Vomiting, No Diarrhea, No Constipation, +Abdominal pain Genitourinary: No irregular bleeding, No Dysuria, No Urinary Frequency, No Hematuria, No Flank Pain Musculoskeletal: No joint pain, No Myalgias, No Joint Swelling Skin: No Skin Lesions, No rash Neuro: +Weakness, No Numbness, No Paresthesias, No Loss of Consciousness, +lightheaded, No Headache Yes all other systems are reviewed and are negative Constitutional: Constitutional: Reports as per [facility] Past Medical History Attestation statement: The following information was validated with the patient. Source: old records reviewed Medical History Anemia Abnormal CT of the abdomen Stomach cancer Kidney disease Asthma Surgical History Tubal ligation status History of bladder surgery History of cholecystectomy Social History Social History Household Members: Family Housing: Apartment Do you presently have visiting nurse or other home services: No Patient Tobacco Use Status: Never used Tobacco Advance Directives: No Advance Directives Information Provided: Yes Advance Directives Date on File: 02/12/20 service: No 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al status: disabled 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: r handed Physical Exam ED Vital Signs: Vital Signs - 24 hr 01/29/23 08:13 01/29/23 09:20 01/29/23 09:33 Temperature 96.7 F L Pulse Rate 100 74 73 Respiratory Rate 14 Blood Pressure 146/82 H 100/65 91/61 Pulse Oximetry Oxygen Delivery Method Room Air 01/29/23 09:34 01/29/23 11:23 01/29/23 12:34 Temperature Pulse Rate 83 78 78 Respiratory Rate 14 14 Blood Pressure 63/38 L 109/55 L 120/56 L Pulse Oximetry Oxygen Delivery Method 01/29/23 14:47 Temperature Pulse Rate 76 Respiratory Rate 14 Blood Pressure 94/46 L Pulse Oximetry 98 Oxygen Delivery Method Room Air BMI result Body Mass Index 19.7 Const General: cooperative and no acute distress Nutritional Appearance: thin Orientation/consciousness: patient oriented x3 Limitations: no limitations HENMT Head: Yes normal to inspection and Yes atraumatic Ears: hearing grossly normal bilaterally General nose exam: Normal external nose present Face and sinus: Yes normal facial exam Throat: Yes posterior oropharynx normal Eyes General: appearance normal, both eyes and all related structures EOM: EOMs intact bilaterally Neck Neck: Yes normal visual inspection and Yes no meningeal signs Resp Effort & Inspection: normal respiratory effort and no respiratory distress Auscultation: clear to auscultation bilaterally, no crackles and no wheezes Cardio Rate: regular rate Heart sounds: S1 normal heart sound present and S2 normal heart sound present GI Inspection: Yes normal to inspection Palpation (GI): Soft to palpation, Tenderness to palpation present (GI) in the epigastrum; with no rebound tenderness, no guarding and not rigid Back/Spine/Pelvis Other: No midline cervical/thoracic/lumbar spinous tenderness/step-off or deformity Skin Rashes: no rashes Wounds: no wounds Neuro General: patient oriented x3, tone normal, moves all extremities, no meningeal signs, no focal motor deficits and CN's II-XI intact bilaterally Cranial nerves: Yes CN's II-XII intact bilaterally Cognition (Neuro): normal cognition Gait exam (Neuro): Normal gait present Motor exam (neuro): 5/5 motor strength present throughout and no tremor noted Extrem General: Yes normal to inspection Course Course Course Narrative: -1030-- +notable anemia with hemoglobin 7.4 over hematocrit 22.8 > patient denies any bloody BMs, melena, hematuria. Occult stool obtained. - BUN elevated to 22 likely from dehydration. XR chest 1V IMPRESSION: No acute disease. The tip of a right subclavian Port-A-Cath is in the proximal right atrium. - *Orthostatic vital signs positive. Additional L IVF ordered. Will Consult Oncology Dr. Becerril > reports patient with 1st cycle of intense chemotherapy last week -1305-- occult stool positive. Will obtain CT GI bleed for further eval. Plan will be for admission -1600-- repeat troponin equivocal CT gi bleed abd pel wo/w IVcon IMPRESSION: No evidence of active GI bleed. Abnormal appearance to the stomach, enlarged perigastric lymph nodes, stranding of the fat surrounding the stomach and likely peritoneal disease which appears unchanged from November 2022 exam. Diverticulosis of the colon. No evidence of diverticulitis. > will admit for further management Medications Administered Discontinued Medications Generic Name Dose Route Start Last Admin Trade Name Freq PRN Reason Stop Dose Admin Sodium Chloride 1,000 mls @ 999 mls/hr 01/29/23 09:15 01/29/23 11:13 Ns IV 01/29/23 10:15 Infused .Q1H1M YOMAIRA Infusion Sodium Chloride 1,000 mls @ 999 mls/hr 01/29/23 10:45 01/29/23 12:45 Ns IV 01/29/23 11:45 Infused .Q1H1M YOMAIRA Infusion Sodium Chloride 1,000 mls @ 999 mls/hr 01/29/23 10:45 01/29/23 12:46 Ns IV 01/29/23 11:45 Infused .Q1H1M YOMAIRA Infusion Iohexol 80 ml 01/29/23 13:46 01/29/23 13:47 Iohexol 350 Mg/Ml 100 Ml Infus..Btl IV 01/29/23 13:47 80 ml ONCE ONE Administration Medical Decision Making Medical Decision Making MDM Narrative: 77-year-old female with past medical history of 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 Becerril, anemia, asthma, renal disease, presenting to ED with son complaining of decreased p.o. intake x yesterday w/acute on chronic epigastric abdominal pain, nausea, bilateral LE fatigue/weakness, & lightheadedness x1 mos. On exam vital signs stable, NAD, nontoxic appearing chronic chronically ill, abdomen soft with epigastric tenderness, no rebound guarding, no focal neuro deficits. Concern for metabolic abnormalities including dehydration. rule out infectious etiology. Lower suspicion for pancreatitis/ cholecystitis /lithiasis with chronic abdominal pain with known gastric malignancy. Low suspicion for ACS/ PE or CHF. Plan: EKG, labs, UA, CXR, orthostatics, IVF, consult Oncology Please refer to course for remaining clinical decision making, interpretation of labs/imaging results, and discussions with consultants and/or family members. Differential Diagnosis Differential Diagnoses: The differential diagnosis associated with the presentation includes As above Admission/Observation Consideration of admission/observation: Escalation of care including admission/observation considered Consult Healthcare Provider Management of the patient was discussed with: [employer] Lab Data [facility] Lab Attestation statement: I reviewed the patient's lab results. 01/29/23 09:44 01/29/23 09:44 Labs: Lab Results 01/29/23 01/29/23 01/29/23 Range/Units 08:45 08:46 09:44 WBC 4.5 L (4.8-10.8) X10*3/uL RBC 2.78 L D (4.20-5.50) X10*6/uL Hgb 7.4 L D (12.0-16.0) g/dl Hct 22.8 L D (37.0-47.0) % MCV 82.0 (80.0-98.0) fL MCH 26.6 L (27.0-33.0) pg MCHC 32.5 (31.0-35.0) g/dl RDW 17.0 H (11.0-16.0) % Plt Count 208 D (160-400) X10*3/uL MPV Not Reportable Immature Gran % (Auto) Cancelled Neut % (Auto) Cancelled Lymph % (Auto) Cancelled Wells % (Auto) Cancelled Eos % (Auto) Cancelled Baso % (Auto) Cancelled Lymph # (Auto) Cancelled Wells # (Auto) Cancelled Eos # (Auto) Cancelled Baso # (Auto) Cancelled Abs Immat Gran (auto) Cancelled Absolute Neuts (auto) Cancelled Absolute Nucleated RBC 0.000 (0.0-0.012) X10*3/uL Nucleated RBC % (auto) 0.0 (0.0-0.2) /100WBC Neutrophils % (Manual) 71 (45-73) % Band Neutrophils % 3 (3-5) % Lymphocytes % (Manual) 16 L (20-40) % Monocytes % (Manual) 1 L (2-11) % Eosinophils % (Manual) 9 H (0-4) % Abs Neuts (Manual) 3.3 (2.0-8.3) X10*3/uL Lymphocytes # (Manual) 0.7 L (1.2-4.9) X10*3/uL Eosinophils # (Manual) 0.4 (0.0-0.4) X10*3/uL Toxic Vacuolation PRESENT Platelet Estimate NORMAL (NORMAL) Plt Morphology Comment NORMAL RBC Morphology NOTED Hypochromasia 1+ (5-14) /OIF Ovalocytes 1+ (5-14) /OIF Magdiel Cells 1+ (0-2) /OIF Sodium 139 (135-145) mmol/L Potassium 3.7 D (3.3-5.1) mmol/L Chloride 108 (96-108) mmol/L Carbon Dioxide 22 (22-29) mmol/L Anion Gap 13 (12-20) BUN 22 H (9-16) mg/dL Creatinine 0.82 (0.5-1.4) mg/dL Estim Creat Clear Calc 41.9 Estimated GFR > 60 Random Glucose 91 (60-115) mg/dL Calcium 8.2 L D (8.4-10.2) mg/dL Magnesium 2.2 (1.6-2.6) mg/dL Total Bilirubin 0.5 (0.0-1.0) mg/dL Direct Bilirubin 0.2 (0.0-0.5) mg/dL AST 25 (5-31) U/L ALT 9 (0-31) U/L Alkaline Phosphatase 101 (39-117) U/L Troponin I High Sens 7.2 (<3.5-17.0) ng/L Total Protein 5.6 L (6.5-8.0) g/dL Albumin 3.1 L (3.5-5.0) g/dL Lipase 20 (8-78) U/L Urine Color Urine Appearance Urine pH (5.0-9.0) Ur Specific [place] (1.005-1.025) Urine Protein (Neg-Trace) mg/dL Urine Glucose (UA) (Negative) mg/dL Urine Ketones (Negative) mg/dL Urine Blood (Negative) Urine Nitrite (Negative) Ur Leukocyte Esterase (Negative) Urine RBC (0-2) /HPF Urine WBC (0-5) /HPF Ur Squamous Epith Cells (0-2) /HPF Urine Bacteria (None Seen) Hyaline Casts (0-2) /LPF Stool Occult Blood (NEGATIVE) COVID-19 (JUAN RAMON) Negative (Negative) COVID-19 Clin Com See Note Influenza Type A (OSMANY) Negative (Negative) Influenza Type B (OSMANY) Negative (Negative) Influenza A & B Note See Note 01/29/23 01/29/23 Range/Units 11:21 15:25 WBC (4.8-10.8) X10*3/uL RBC (4.20-5.50) X10*6/uL Hgb (12.0-16.0) g/dl Hct (37.0-47.0) % MCV (80.0-98.0) fL MCH (27.0-33.0) pg MCHC (31.0-35.0) g/dl RDW (11.0-16.0) % Plt Count (160-400) X10*3/uL MPV Immature Gran % (Auto) Neut % (Auto) Lymph % (Auto) Wells % (Auto) Eos % (Auto) Baso % (Auto) Lymph # (Auto) Wells # (Auto) Eos # (Auto) Baso # (Auto) Abs Immat Gran (auto) Absolute Neuts (auto) Absolute Nucleated RBC (0.0-0.012) X10*3/uL Nucleated RBC % (auto) (0.0-0.2) /100WBC Neutrophils % (Manual) (45-73) % Band Neutrophils % (3-5) % Lymphocytes % (Manual) (20-40) % Monocytes % (Manual) (2-11) % Eosinophils % (Manual) (0-4) % Abs Neuts (Manual) (2.0-8.3) X10*3/uL Lymphocytes # (Manual) (1.2-4.9) X10*3/uL Eosinophils # (Manual) (0.0-0.4) X10*3/uL Toxic Vacuolation Platelet Estimate (NORMAL) Plt Morphology Comment RBC Morphology Hypochromasia /OIF Ovalocytes /OIF Magdiel Cells /OIF Sodium (135-145) mmol/L Potassium (3.3-5.1) mmol/L Chloride (96-108) mmol/L Carbon Dioxide (22-29) mmol/L Anion Gap (12-20) BUN (9-16) mg/dL Creatinine (0.5-1.4) mg/dL Estim Creat Clear Calc Estimated GFR Random Glucose (60-115) mg/dL Calcium (8.4-10.2) mg/dL Magnesium (1.6-2.6) mg/dL Total Bilirubin (0.0-1.0) mg/dL Direct Bilirubin (0.0-0.5) mg/dL AST (5-31) U/L ALT (0-31) U/L Alkaline Phosphatase (39-117) U/L Troponin I High Sens 7.9 (<3.5-17.0) ng/L Total Protein (6.5-8.0) g/dL Albumin (3.5-5.0) g/dL Lipase (8-78) U/L Urine Color Yellow Urine Appearance Clear Urine pH 5.5 (5.0-9.0) Ur Specific [place] 1.010 (1.005-1.025) Urine Protein Trace (Neg-Trace) mg/dL Urine Glucose (UA) Negative (Negative) mg/dL Urine Ketones Negative (Negative) mg/dL Urine Blood Negative (Negative) Urine Nitrite Negative (Negative) Ur Leukocyte Esterase Small (1+) H (Negative) Urine RBC 0-2 (0-2) /HPF Urine WBC 0-5 (0-5) /HPF Ur Squamous Epith Cells 6-10 (0-2) /HPF Urine Bacteria None Seen (None Seen) Hyaline Casts 3-5 (0-2) /LPF Stool Occult Blood POSITIVE (NEGATIVE) COVID-19 (JUAN RAMON) (Negative) COVID-19 Clin Com Influenza Type A ([facility]Y) (Negative) Influenza Type B ([facility]Y) (Negative) Influenza A & B Note Independent Interpretation I performed an independent interpretation of an: EKG Radiology Impression Discussion of test interpretation with radiology: I have reviewed the radiologist's reading. Independent Historian Clinical information obtained from an independent historian. History obtained from or confirmed by: Other (son) External Record Review External record reviewed: Inpatient record, Office record, Outpatient record, Prior outpatient labs, Prior outpatient radiology, Primary care record and Outside ED record Tests considered The following testing was considered but not selected: As above Prescription Management I considered prescription management with: Pain Medication Chronic Conditions Patient?s care impacted by: Cancer Critical Care Time Critical Care Time Critical Care Time: Yes Total Critical Care Time: 35 Attestation: I have personally provided critical care time exclusive of time spent on separately billable procedures. Time includes review of lab data, radiology results, discussion with consultants, and monitoring for potential decompensation. Intervention performed as documented. Discharge Plan Discharge Clinical Impression: Weakness, Occult blood positive stool, Anemia, Orthostasis, Decreased oral intake Patient Disposition: Admitted As Inpatient
[2023-01-29 09:22] LABS: IDNOW Serial# BCCEAD1C; Influenza A Negative (Negative); Influenza B2 Negative (Negative)
[2023-01-29 09:23] LABS: COVID-19 Test Negative (Negative); IDNOW Serial# 08D9AD1C
[2023-01-29 10:01] LABS: Hematocrit 22.8 % (37.0-47.0); Hemoglobin 7.4 g/dl (12.0-16.0); Mean Corpuscular HGB Conc 32.5 g/dl (31.0-35.0); Mean Corpuscular Hemoglobin 26.6 pg (27.0-33.0); PLT CLUMP 1; Red Blood Count 2.78 X10*6/uL (4.20-5.50)
[2023-01-29 10:02] LABS: WBC ABN SCTR FOR CBC 1
[2023-01-29] MEDS: 0.9 % Sodium Chloride 1,000 ML 999 ML IV ×3 (10:04→10:45)
[2023-01-29 10:16] LABS: Alanine Aminotransferase 9 U/L (0-31); Albumin Level 3.1 g/dL (3.5-5.0); Alkaline Phosphatase 101 U/L (39-117); Anion Gap 13 (12-20); Aspartate Amino Transferase 25 U/L (5-31); Bilirubin Direct 0.2 mg/dL (0.0-0.5); Bilirubin Total 0.5 mg/dL (0.0-1.0); Blood Urea Nitrogen 22 mg/dL (9-16); Calcium 8.2 mg/dL (8.4-10.2); Carbon Dioxide 22 mmol/L (22-29); Chloride 108 mmol/L (96-108); Creatinine Clr Calc Pharmacy 41.9; Estimated Glomerular Filt Rate > 60; Glucose Random 91 mg/dL (60-115); Lipase 20 U/L (8-78); Magnesium 2.2 mg/dL (1.6-2.6); Potassium 3.7 mmol/L (3.3-5.1); Sodium 139 mmol/L (135-145); Total Protein 5.6 g/dL (6.5-8.0)
[2023-01-29 10:53] LABS: Platelet Count 208 X10*3/uL (160-400); White Blood Count 4.5 X10*3/uL (4.8-10.8)
[2023-01-29 10:57] LABS: Band Neutrophils Percent 3 % (3-5); Eosinophils Absolute Manual 0.4 X10*3/uL (0.0-0.4); Eosinophils Percent Manual 9 % (0-4); Lymphocytes Absolute Manual 0.7 X10*3/uL (1.2-4.9); Lymphocytes Percent Manual 16 % (20-40); Monocytes Percent Manual 1 % (2-11); Neutrophils Absolute Manual 3.3 X10*3/uL (2.0-8.3); Neutrophils Percent Manual 71 % (45-73)
[2023-01-29 11:00] LABS: Burr Cells 1+ (0-2) /OIF; Hypochromasia 1+ (5-14) /OIF; Ovalocytes 1+ (5-14) /OIF; Platelet Estimate NORMAL (NORMAL); Platelet Morphology Comment NORMAL; RBC Morphology NOTED; Toxic Vacuolation PRESENT
[2023-01-29 11:41] LABS: OBS Int Ctl Valid YES; OBS1 POSITIVE (NEGATIVE)
[2023-01-29 11:42] LABS: Appearance Urine Clear; Color Urine Yellow; Glucose Urine UA Negative (Negative); Leukocyte Esterase Urine Small (1+) (Negative); Nitrite Urine Negative (Negative); PH 5.5 (5.0-9.0); UMIC TRIGGER UACC YES; Urine Blood Negative (Negative); Urine Ketones Negative (Negative); Urine Protein Trace mg/dL (Neg-Trace)
[2023-01-29 12:00] LABS: Bacteria Urine None Seen (None Seen); RBC Urine 0-2 /HPF (0-2); UACC Culture Trigger YES; WBC Urine 0-5 /HPF (0-5)
[2023-01-29 12:44] LABS: Troponin-I High Sensitivity 7.2 ng/L (<3.5-17.0)
[2023-01-29] MEDS: iohexoL 350 MG/ML 100 ML INFUS..BTL 80 ML IV (13:47)
[2023-01-29 15:56] LABS: Troponin-I High Sensitivity 7.9 ng/L (<3.5-17.0)
--- NOTE | 2023-01-29 16:17 | PHA.MEDREC ---
Pharmacy Consult ? Medication Reconciliation Pharmacy has completed the medication reconciliation. Patient confirmed medications. Cyndi Jones, PamelaD
--- NOTE | 2023-01-29 16:30 | PM.IMHP ---
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 She has difficulties eating due to gastric mass. Abdominal CT in the ER does not show any evidence of acute GI bleed, chest x-ray without consolidation or effusion. Orthostatic blood pressure readings noted. Hemoglobin 7.4, hematocrit 22.8 with no obvious signs of bleeding. She was given 3 L of IV fluids in the ER. She will be admitted for further management and treatment of acute on chronic non blood loss anemia secondary to chemotherapy. Review of Systems Review of Systems: Denies any recent fever chills or decrease in appetite respiratory denies any shortness of breath coverage production cardiovascular denies chest pain gastrointestinal see HPI genitourinary denies any dysuria frequency or hematuria musculoskeletal denies any joint pain or swelling neuropsych denies any weakness or seizures all other systems reviewed are negative [facility] Medical History Anemia Abnormal CT of the abdomen Stomach cancer Kidney disease Asthma Surgical History Tubal ligation status History of bladder surgery History of cholecystectomy Social History Household Members: Family Housing: Apartment Do you presently have visiting nurse or other home services: No Patient Tobacco Use Status: Never used Tobacco Advance Directives: No Advance Directives Information Provided: Yes Advance Directives Date on File: 02/12/20 service: No 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al status: disabled 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: r handed Meds Allergies Allergy/AdvReac Type Severity Reaction Status Date / Time codeine [CODEINE] Allergy Intermediate RASH Verified 01/10/23 11:02 ibuprofen [From MOTRIN] Allergy Intermediate RASH Verified 01/10/23 11:02 Penicillins [PENICILLINS] Allergy Intermediate RASH Verified 01/10/23 11:02 motrin Allergy Unknown rash, Uncoded 01/10/23 11:02 swelling PCN Allergy Unknown rash, Uncoded 01/10/23 11:02 swelling Home Medications Medication Instructions Recorded Confirmed Last Taken Type albuterol sulfate 90 mcg/actuation 2 puff inhalation Q4H PRN 10/10/21 01/29/23 Unknown History aerosol inhaler Shortness Of Breath Or Wheezing atorvastatin 80 mg tablet 80 mg PO QPM 10/10/21 01/29/23 Unknown History cholecalciferol (vitamin D3) 125 125 mcg PO DAILY 10/10/21 01/29/23 Unknown History mcg (5,000 unit) tablet cyanocobalamin (vitamin B-12) 1,000 mcg PO DAILY 10/10/21 01/29/23 Unknown History 1,000 mcg tablet furosemide 20 mg tablet 20 mg PO DAILY PRN Edema 10/10/21 01/29/23 Unknown History loratadine 10 mg tablet 10 mg PO DAILY PRN Allergic 10/10/21 01/29/23 Unknown History Symptoms omeprazole 20 mg capsule,delayed 20 mg PO DAILY 10/10/21 01/29/23 01/10/23 History release acetaminophen 325 mg tablet 325 mg PO QID PRN Pain 11/25/22 01/29/23 01/10/23 History fluticasone propionate 50 1 spray intranasal BID PRN Allergy 11/25/22 01/29/23 Unknown History mcg/actuation nasal Symptoms spray,suspension sennosides 8.6 mg tablet (senna) 8.6 - 17.2 mg PO DAILY PRN 11/25/22 01/29/23 Unknown History Constipation umeclidinium 62.5 mcg/actuation 1 inh inhalation DAILY 11/25/22 01/29/23 Unknown History blister powder for inhalation (Incruse Ellipta) albuterol sulfate 2.5 mg/3 mL 2.5 mg inhalation Q4H PRN Wheezing 01/29/23 01/29/23 Unknown History (0.083 %) solution for nebulization bisacodyl 5 mg tablet,delayed 5 mg PO DAILY PRN constipation 01/29/23 01/29/23 Unknown History release dexamethasone 4 mg tablet 4 mg PO BID PRN day 2 or 3 of chemo 01/29/23 01/29/23 Unknown History diphenhydramine HCl 25 mg capsule 25 mg PO Q4-6H PRN Itching 01/29/23 01/29/23 Unknown History ondansetron 8 mg disintegrating 8 mg PO Q8H PRN Nausea 01/29/23 01/29/23 Unknown History tablet prednisone 20 mg tablet 60 mg PO DAILY PRN day 1-5 of chemo 01/29/23 01/29/23 Unknown History Physical Exam Vital Signs and Narrative: Vital Signs: Last Vital Signs Temp 96.7 F L 01/29/23 08:13 Pulse 76 01/29/23 14:47 Resp 14 01/29/23 14:47 BP 94/46 L 01/29/23 14:47 Pulse Ox 98 01/29/23 14:47 O2 Del Method Room Air 01/29/23 14:47 BMI result Body Mass Index 19.7 Appearing in no acute distress, thin head is normocephalic atraumatic eyes pupils are PERRLA sclera is anicteric mouth throat mucous membranes are intact and moist neck is supple no lymphadenopathy, no JVD noted lung sounds are clear to auscultation heart regular rate rhythm, clear S1, S2 positive bowel sounds, abdomen is soft, nontender neuro patient is alert x3, no focal deficits Results Labs 01/29/23 09:44 01/29/23 09:44 Labs: Laboratory Results - last 24 hr 01/29/23 01/29/23 01/29/23 08:45 08:46 09:44 MCV 82.0 MCH 26.6 L MCHC 32.5 RDW 17.0 H Plt Count 208 D MPV Not Reportable Immature Gran % (Auto) Cancelled Neut % (Auto) Cancelled Lymph % (Auto) Cancelled [place] % (Auto) Cancelled Eos % (Auto) Cancelled Baso % (Auto) Cancelled Lymph # (Auto) Cancelled [place] # (Auto) Cancelled Eos # (Auto) Cancelled Baso # (Auto) Cancelled Abs Immat Gran (auto) Cancelled Absolute Neuts (auto) Cancelled Absolute Nucleated RBC 0.000 Nucleated RBC % (auto) 0.0 Neutrophils % (Manual) 71 Band Neutrophils % 3 Lymphocytes % (Manual) 16 L Monocytes % (Manual) 1 L Eosinophils % (Manual) 9 H Abs Neuts (Manual) 3.3 Lymphocytes # (Manual) 0.7 L Eosinophils # (Manual) 0.4 Toxic Vacuolation PRESENT Platelet Estimate NORMAL Plt Morphology Comment NORMAL RBC Morphology NOTED Hypochromasia 1+ (5-14) Ovalocytes 1+ (5-14) [place] Cells 1+ (0-2) Anion Gap 13 Estim Creat Clear Calc 41.9 Estimated GFR > 60 Random Glucose 91 Calcium 8.2 L D Magnesium 2.2 Total Bilirubin 0.5 Direct Bilirubin 0.2 AST 25 ALT 9 Alkaline Phosphatase 101 Total Protein 5.6 L Albumin 3.1 L Lipase 20 Urine Color Urine Appearance Urine pH Ur Specific [place] Urine Protein Urine Glucose (UA) Urine Ketones Urine Blood Urine Nitrite Ur Leukocyte Esterase Urine RBC Urine WBC Ur Squamous Epith Cells Urine Bacteria Hyaline Casts Stool Occult Blood COVID-19 (JUAN RAMON) Negative COVID-19 Clin Com See Note Influenza Type A (OSMANY) Negative Influenza Type B (OSMANY) Negative Influenza A & B Note See Note 01/29/23 11:21 MCV MCH MCHC RDW Plt Count MPV Immature Gran % (Auto) Neut % (Auto) Lymph % (Auto) [place] % (Auto) Eos % (Auto) Baso % (Auto) Lymph # (Auto) [place] # (Auto) Eos # (Auto) Baso # (Auto) Abs Immat Gran (auto) Absolute Neuts (auto) Absolute Nucleated RBC Nucleated RBC % (auto) Neutrophils % (Manual) Band Neutrophils % Lymphocytes % (Manual) Monocytes % (Manual) Eosinophils % (Manual) Abs Neuts (Manual) Lymphocytes # (Manual) Eosinophils # (Manual) Toxic Vacuolation Platelet Estimate Plt Morphology Comment RBC Morphology Hypochromasia Ovalocytes [place] Cells Anion Gap Estim Creat Clear Calc Estimated GFR Random Glucose Calcium Magnesium Total Bilirubin Direct Bilirubin AST ALT Alkaline Phosphatase Total Protein Albumin Lipase Urine Color Yellow Urine Appearance Clear Urine pH 5.5 Ur Specific [place] 1.010 Urine Protein Trace Urine Glucose (UA) Negative Urine Ketones Negative Urine Blood Negative Urine Nitrite Negative Ur Leukocyte Esterase Small (1+) H Urine RBC 0-2 Urine WBC 0-5 Ur Squamous Epith Cells 6-10 Urine Bacteria None Seen Hyaline Casts 3-5 Stool Occult Blood POSITIVE COVID-19 (JUAN RAMON) COVID-19 Clin Com Influenza Type A (OSMANY) Influenza Type B (OSMANY) Influenza A & B Note Imaging Radiologist's Impressions: Impressions Chest X-Ray 01/29/23 09:50 IMPRESSION: No acute disease. The tip of a right subclavian Port-A-Cath is in the proximal right atrium. Abdomen/Pelvis CT 01/29/23 13:47 IMPRESSION: No evidence of active GI bleed. Abnormal appearance to the stomach, enlarged perigastric lymph nodes, stranding of the fat surrounding the stomach and likely peritoneal disease which appears unchanged from November 2022 exam. Diverticulosis of the colon. No evidence of diverticulitis. 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 Acute on chronic non blood loss anemia with thrombocytopenia Likely secondary to chemotherapy No evidence of active GI bleed on abdominal CT No overt signs of bleeding Will transfuse 1 unit PRBC PPI May consider Epo, discuss with oncology Orthostatic hypotension Likely secondary to hypovolemia IV fluids Protein calorie malnutrition. BMI 19.7 Secondary to nausea, vomiting from chemotherapy IV fluids Will add protein with Ensure clear to diet Asthma No exacerbation Continue albuterol B-cell lymphoma with gastric mass Currently undergoing chemotherapy Will consult Dr. Becerril, her oncologist DVT prophylaxis mechanical compression boots to to acute anemia Full code Patient requires 2 inpatient midnights for the treatment of a cute on chronic non blood loss anemia secondary to chemotherapy requiring blood transfusion and specialist consultation Time Spent With Patient Time: Total time managing care of this patient today ____ minutes. Quality Stroke Does the patient have a stroke diagnosis?: No VTE Prior VTE?: No VTE Risk Level:: Medical - moderate - high VTE Device Contraindication: N/A - Device Ordered VTE Drug Contraindication: Treatment Not Indicated
[2023-01-29] MEDS: Dextrose 5 % and 0.9 % NaCl 1,000 ML 80 ML IVCONT (17:28)
--- NOTE | 2023-01-29 19:14 | PC.NURSE ---
assumed care of pt at 1900. Pt alert and oriented. Calm cooperative, no signs of acute distress. PT assisted to bathroom, gait was steady, pt used bathroom independently. This RN obtained lab work for type and screen. Fluids restarted. VSS. Son at bedside, Call forrest within reach
--- NOTE | 2023-01-29 20:46 | PC.NURSE ---
This RN attempted several of calls to [facility] to give report. Unable to reach nurse
[2023-01-30] VITALS (11 sets, daily range): BP systolic 84–128; BP diastolic 44–70; PULSE 67–74; RESP 16–20; TEMP 36.2–37.2; O2SAT 98–100; BMI 21.1
[2023-01-30 00:30] LABS: Glucose, Whole Blood 85 mg/dL (60-115)
[2023-01-30 00:30] LABS: Glucose, Whole Blood 83 mg/dL (60-115)
[2023-01-30] MEDS: Omeprazole 20 MG CAPSULE.DR PO (07:01)
--- NOTE | 2023-01-30 08:12 | PC.NURSE ---
patient port working well on admission to the floor. flushed well with good blood return, used to give patient Iv fluids and 1 unit of blood. After the blood transfusion patient reconnected to D5 IV fluids with no problems. went in to draw blood for lab, flushed IV well and had 6cc of blood return connected the lab draw tube and no blood return to the lab tube. Flushed again and did not get blood return. requested help from Padmini YOUNG who tried to flush the port and was unable to. Alana Kaiser and HECTOR gardner aware.
[2023-01-30] MEDS: Cholecalciferol (Vitamin D3) 25 MCG TABLET 125 MCG PO (09:35)
[2023-01-30] MEDS: Cyanocobalamin (Vitamin B-12) 1,000 MCG TABLET 1000 MCG PO (09:35)
--- NOTE | 2023-01-30 12:45 | P.CDIM_ITS ---
PROVIDER RESPONSE TEXT: To clarify, the appropriate diagnosis supported by the clinical indicators: Moderate QUERY TEXT: PHYSICIAN'S DOCUMENTATION REQUEST Date of Query: 01/30/2023 07:53 AM EDT Patient Name: Delmy Ann Admit Date: 01/29/2023 Dear Alana Reaves, A review of the medical record indicates additional documentation may be needed. Please review below and update the documentation accordingly. Documentation includes the diagnosis of malnutrition. H&P: Dx- protein calorie malnutrition BMI 19 fatigue, weakness, difficulty eating due to gastric mass. Chemotherapy If possible, please provide additional specificity regarding the severity of the malnutrition using t he above information: Mild Moderate Severe Other (explain)Clinically unable to determine (explain)Thank you, Elly Guerrero, CCS, CDIS Use of terms such as suspected, likely, concern for, or probable (associated with a specific diagnosi s that is being evaluated, monitored, or treated as if it exists) are acceptable and can be coded in the inpatient se tting, when documented at the time of discharge. Please use your independent medical judgment in providing your response. THIS QUERY IS PART OF THE PERMANENT MEDICAL RECORD
--- NOTE | 2023-01-30 13:02 | HO.PM.IMPN ---
Subjective Subjective Date of Service: 01/30/23 Review of Systems Follow up FTT, pain doing better today minimal pain to abd Physical Exam Vital Signs: Vital Signs: Last Vital Signs Temp 98.2 F 01/30/23 11:22 Pulse 72 01/30/23 12:10 Resp 16 01/30/23 12:10 BP 117/70 01/30/23 11:22 Pulse Ox 100 01/30/23 11:22 O2 Del Method Room Air 01/30/23 11:22 BMI result Body Mass Index 21.1 Appearing in no acute distress lung sounds are clear to auscultation heart regular rate rhythm, clear S1, S2 positive bowel sounds, abdomen is soft, nontender neuro patient is alert x3, no focal deficits Objective Data Active Medications Acetaminophen (Acetaminophen 325 Mg Tablet) 650 mg PO Q6H PRN PRN Reason: Pain, Mild (Pain Scale 1-3) Albuterol Sulfate (Albuterol Sulfate (0.083%) 2.5 Mg/3 Ml Vial.Neb) 2.5 mg INHALE Q4H PRN PRN Reason: Wheezing Bisacodyl (Bisacodyl 5 Mg Tablet.Dr) 5 mg PO DAILY PRN PRN Reason: constipation Cyanocobalamin (Cyanocobalamin (Vitamin B-12) 1,000 Mcg Tablet) 1,000 mcg PO DAILY [facility] Last Admin: 01/30/23 09:35 Dose: 1,000 mcg Documented By: MUNA Dicyclomine HCl (Dicyclomine Hcl 10 Mg Capsule) 20 mg PO QID PRN PRN Reason: abdominal pain Diphenhydramine HCl (Diphenhydramine Hcl 25 Mg Capsule) 25 mg PO Q4H PRN PRN Reason: Itching Fluticasone Propionate (Fluticasone Propionate Nasal 16 Gm [place]) 1 spray NOSTRIL-B BID PRN PRN Reason: Allergy Symptoms Furosemide (Furosemide 20 Mg Tablet) 20 mg PO DAILY PRN; Protocol PRN Reason: Edema Heparin Sodium (Porcine) (Heparin Sodium,Porcine Flush 50 Units/5 Ml Syringe) 50 units IVFLUSH QSHIFT [facility] Dextrose/Sodium Chloride (D5ns) 1,000 mls @ 80 mls/hr IVCONT .[id number] [facility] Last Admin: 01/30/23 07:27 Dose: Not Given Documented By: YANELI Non-Admin Reason: no access Loratadine (Loratadine 10 Mg Tablet) 10 mg PO DAILY PRN PRN Reason: Allergic Symptoms Omeprazole (Omeprazole 20 Mg Capsule.) 20 mg PO DAILY@0630 [facility] Last Admin: 01/30/23 07:01 Dose: 20 mg Documented By: RENE Ondansetron HCl (Ondansetron Hcl 4 Mg/2 Ml Vial) 4 mg IVPUSH Q8H PRN PRN Reason: Nausea and Vomiting Oxycodone HCl (Oxycodone Hcl Immed Release 5 Mg Tablet) 5 mg PO Q6H PRN PRN Reason: Pain, Moderate(Pain Scale 4-6) Sodium Chloride (0.9 % Sodium Chloride Flush 3 Ml Syringe) 3 ml IVFLUSH QSHIFT [facility] Last Admin: 01/30/23 09:34 Dose: Not Given Documented By: MUNA Non-Admin Reason: No Access Tiotropium [place] (Tiotropium [place] 2.5 Mcg Inhaler) 1 puff INHALE RDAILY [facility] Last Admin: 01/30/23 12:08 Dose: 1 puff Documented By: CHLOE Vitamin D (Cholecalciferol (Vitamin D3) 25 Mcg Tablet) 125 mcg PO DAILY [facility] Last Admin: 01/30/23 09:35 Dose: 125 mcg Documented By: MUNA Labs 01/29/23 09:44 01/29/23 09:44 Labs: Laboratory Results - last 24 hr 01/29/23 01/30/23 01/30/23 19:09 00:22 00:24 POC Glucose 85 83 Blood Type O Positive Antibody Screen NEGATIVE Crossmatch See Detail Microbiology Microbiology Results: Microbiology 01/29/23 Unknown Urine Culture - Final Urine clean catch - Urine huynh top Assessment and Plan (1) Decreased oral intake: Status: Acute Plan 77-year-old woman with a 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 Acute on chronic non blood loss anemia with thrombocytopenia Likely secondary to chemotherapy No evidence of active GI bleed on abdominal CT No overt signs of bleeding Will transfuse 1 unit PRBC PPI May consider Epo, discuss with oncology Orthostatic hypotension. resolved Likely secondary to hypovolemia IV fluids Moderate Protein calorie malnutrition. BMI 19.7 Secondary to nausea, vomiting from chemotherapy IV fluids Will add protein with Ensure clear to diet Asthma No exacerbation Continue albuterol B-cell lymphoma with gastric mass Currently undergoing chemotherapy Will consult Dr. Becerril, her oncologist DVT prophylaxis mechanical compression boots to to acute anemia Attending Dr. Donaldson Full code DISPO dc home when medically stable continued hospital stay for the treatment of a cute on chronic non blood loss anemia secondary to chemotherapy requiring blood transfusion and specialist consultation Time Spent With Patient Time: Total time managing care of this patient today ____ minutes. Quality Stroke Does the patient have a stroke diagnosis?: No VTE Prior VTE?: No VTE Risk Level:: Medical - moderate - high VTE Device Contraindication: N/A - Device Ordered VTE Drug Contraindication: Treatment Not Indicated
--- NOTE | 2023-01-30 13:14 | MHC.CM.PN ---
CM met with pt today with an interpreter deaf, gave LANI. Pt lives with her grandson, home health services were going to begin today, she could not recall which agency, [facility] to call son to inquire. PCP is Mis Gutierrez. No HCP on file, discussed with Pt and gave her HCP form to complete. D/c plan is home with services, [facility] to follow and assist with d/c planning.
--- NOTE | 2023-01-30 14:57 | PM.HEMONCCN ---
Subjective - Subjective Chief complaint: Consult for: Gastric lymphoma. Patient: known to practice within the last 3 years Consult date: 01/30/23 Requesting Physician: Alana reaves Primary Care Provider: Mis Gutierrez MD Medical Summary: DIAGNOSIS: GASTRIC LYMPHOMA. STATUS POST 1 CYCLE OF CHEMO. HPI - Consult Narrative Reason for consult: Consult for: 1. Diffuse large B-cell lymphoma. 2. Anemia. Narrative: Delmy Ann is a 77 year old lady who presented to the ED yesterday. 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 She received her 1st cycle of chemotherapy on 01/22. She presented to the ER with complaints of acute on chronic epigastric abdominal pain, nausea, fatigue, weakness, dyspnea with exertion and lightheadedness with poor oral intake over the last week. She has difficulties eating due to gastric mass. Abdominal CT in the ER does not show any evidence of acute GI bleed, chest x-ray without consolidation or effusion. Orthostatic blood pressure readings noted. Database: Hemoglobin 7.4, hematocrit 22.8 with no obvious signs of bleeding. She was given 3 L of IV fluids in the ER. She was admitted for further management and treatment of acute on chronic non-blood loss anemia secondary to chemotherapy. Review of Systems Review of Systems: Denies any recent fever chills or decrease in appetite respiratory denies any shortness of breath coverage production cardiovascular denies chest pain gastrointestinal see HPI genitourinary denies any dysuria frequency or hematuria musculoskeletal denies any joint pain or swelling neuropsych denies any weakness or seizures all other systems reviewed are negative PMFSH Medical History: 1. Diffuse large B-cell lymphoma: She was originally seen on 11/28 when she was in house. Narrative: She presented to [facility] with abdominal pain of 3 months duration. This was associated with weight loss 30-40 lbs, early satiety sweats. She is able to keep food down but feels bloated. She complains of constipation, using stool softeners. Denies nausea, but had 1 episode of watery vomiting. She was seen in ED in September of 2022, at that time CT abdomen and pelvis was unremarkable. Now CT abdomen and pelvis showed abnormality in stomach suspicious for primary gastric malignancy with associated metastatic adenopathy differential includes gastric lymphoma. In the emergency room pt treated with IV morphine. She denies urinary burning or frequency but does complain of nocturia. Urine analysis is positive for 4+ bacteria, and pyuria and leukocyte esterase. She was noted to have a drop in hematocrit since last September, electrolytes are stable, low albumin. CT scan of the abdomen pelvis from 11/25: Abnormal appearance of the stomach with diffuse wall thickening and enhancement, most prominent along the greater curvature of the stomach. There is associated perigastric fat stranding and edema and prominent mesenteric hyperemia. There are multiple large masses seen in the lesser sac, including 2 of the masses appearing completely solid and one of the masses appearing centrally hypoenhancing. Findings are suspicious for a primary gastric malignancy with associated metastatic adenopathy. Other entities, such as gastric lymphoma could be considered in the differential. Further assessment with endoscopy and biopsy is recommended. She underwent an upper endoscopy yesterday by Dr. Caldwell. Findings: Her large polypoidal mass with central ulceration in the gastric body along the greater curvature extending from 36-58 cm and covering 75% of the gastric circumferential. Diffuse gastric erythema. Biopsies taken from antrum to check for H pylori. Pathology revealed: Diffuse large B cell lymphoma, nongerminal center type. Fish studies: Negative for BCL2, BCL6 and c-myc. Anemia Abnormal CT of the abdomen Stomach cancer Kidney disease Asthma Surgical History: Tubal ligation status History of bladder surgery History of cholecystectomy. Social History: Household Members: Family Housing: Apartment Do you presently have visiting nurse or other home services: No Patient Tobacco Use Status: Never used Tobacco Advance Directives: No Advance Directives Information Provided: Yes Advance Directives Date on File: 02/12/20 service: No 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al status: disabled 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: [employer] Medical History: Medical History (Last Reviewed 02/01/23 @ 09:32 by Mounika Anderson PT) Abnormal CT of the abdomen Anemia Asthma Kidney disease Stomach cancer Surgical History: Surgical History (Last Reviewed 02/01/23 @ 09:32 by Mounika Anderson PT) History of bladder surgery History of cholecystectomy Tubal ligation status Social History: Social History (Last Reviewed 01/29/23 @ 09:13 by ROSIBEL Kovacs) Living Situation History: Household Members: Family Housing: Apartment Do you presently have visiting nurse or other home services: No Tobacco History: Patient Tobacco Use Status: Never used Tobacco Advance Directives: Advance Directives Date on File: 02/12/20 Occupation Assessmet: service: No 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al status: disabled 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: r handed Home Medications and Allergies Current Medications: Current Medications Acetaminophen (Acetaminophen 325 Mg Tablet) 650 mg PO Q6H PRN PRN Reason: Pain, Mild (Pain Scale 1-3) Albuterol Sulfate (Albuterol Sulfate (0.083%) 2.5 Mg/3 Ml Vial.Joel) 2.5 mg INHALE Q4H PRN PRN Reason: Wheezing Bisacodyl (Bisacodyl 5 Mg Tablet.) 5 mg PO DAILY PRN PRN Reason: constipation Cyanocobalamin (Cyanocobalamin (Vitamin B-12) 1,000 Mcg Tablet) 1,000 mcg PO DAILY [facility] Last Admin: 01/30/23 09:35 Dose: 1,000 mcg Dicyclomine HCl (Dicyclomine Hcl 10 Mg Capsule) 20 mg PO QID PRN PRN Reason: abdominal pain Diphenhydramine HCl (Diphenhydramine Hcl 25 Mg Capsule) 25 mg PO Q4H PRN PRN Reason: Itching Fluticasone Propionate (Fluticasone Propionate Nasal 16 Gm [place]) 1 spray NOSTRIL-B BID PRN PRN Reason: Allergy Symptoms Furosemide (Furosemide 20 Mg Tablet) 20 mg PO DAILY PRN; Protocol PRN Reason: Edema Heparin Sodium (Porcine) (Heparin Sodium,Porcine Flush 50 Units/5 Ml Syringe) 50 [facility] Dextrose/Sodium Chloride (D5ns) 1,000 mls @ 80 mls/hr IVCONT .[id number] [facility] Last Admin: 01/30/23 07:27 Dose: Not Given Loratadine (Loratadine 10 Mg Tablet) 10 mg PO DAILY PRN PRN Reason: Allergic Symptoms Omeprazole (Omeprazole 20 Mg Capsule.) 20 mg PO DAILY@0630 [facility] Last Admin: 01/30/23 07:01 Dose: 20 mg Ondansetron HCl (Ondansetron Hcl 4 Mg/2 Ml Vial) 4 mg IVPUSH Q8H PRN PRN Reason: Nausea and Vomiting Oxycodone HCl (Oxycodone Hcl Immed Release 5 Mg Tablet) 5 mg PO Q6H PRN PRN Reason: Pain, Moderate(Pain Scale 4-6) Sodium Chloride (0.9 % Sodium Chloride Flush 3 Ml Syringe) 3 ml IVFLUSH QSHIFT [facility] Last Admin: 01/30/23 09:34 Dose: Not Given Tiotropium [place] (Tiotropium [place] 2.5 Mcg Inhaler) 1 puff INHALE RDAILY [facility] Last Admin: 01/30/23 12:08 Dose: 1 puff Vitamin D (Cholecalciferol (Vitamin D3) 25 Mcg Tablet) 125 mcg PO DAILY [facility] Last Admin: 01/30/23 09:35 Dose: 125 mcg Home Medications Medication Instructions Recorded Confirmed Type albuterol sulfate 90 mcg/actuation 2 puff inhalation Q4H PRN 10/10/21 01/29/23 History aerosol inhaler Shortness Of Breath Or Wheezing atorvastatin 80 mg tablet 80 mg PO QPM 10/10/21 01/29/23 History cholecalciferol (vitamin D3) 125 125 mcg PO DAILY 10/10/21 01/29/23 History mcg (5,000 unit) tablet cyanocobalamin (vitamin B-12) 1,000 mcg PO DAILY 10/10/21 01/29/23 History 1,000 mcg tablet furosemide 20 mg tablet 20 mg PO DAILY PRN Edema 10/10/21 01/29/23 History loratadine 10 mg tablet 10 mg PO DAILY PRN Allergic 10/10/21 01/29/23 History Symptoms omeprazole 20 mg capsule,delayed 20 mg PO DAILY 10/10/21 01/29/23 History release acetaminophen 325 mg tablet 325 mg PO QID PRN Pain 11/25/22 01/29/23 History fluticasone propionate 50 1 spray intranasal BID PRN Allergy 11/25/22 01/29/23 History mcg/actuation nasal Symptoms spray,suspension sennosides 8.6 mg tablet (senna) 8.6 - 17.2 mg PO DAILY PRN 11/25/22 01/29/23 History Constipation umeclidinium 62.5 mcg/actuation 1 inh inhalation DAILY 11/25/22 01/29/23 History blister powder for inhalation (Incruse Ellipta) albuterol sulfate 2.5 mg/3 mL 2.5 mg inhalation Q4H PRN Wheezing 01/29/23 01/29/23 History (0.083 %) solution for nebulization bisacodyl 5 mg tablet,delayed 5 mg PO DAILY PRN constipation 01/29/23 01/29/23 History release dexamethasone 4 mg tablet 4 mg PO BID PRN day 2 or 3 of chemo 01/29/23 01/29/23 History diphenhydramine HCl 25 mg capsule 25 mg PO Q4-6H PRN Itching 01/29/23 01/29/23 History ondansetron 8 mg disintegrating 8 mg PO Q8H PRN Nausea 01/29/23 01/29/23 History tablet prednisone 20 mg tablet 60 mg PO DAILY PRN day 1-5 of chemo 01/29/23 01/29/23 History Allergies Allergy/AdvReac Type Severity Reaction Status Date / Time codeine [CODEINE] Allergy Intermediate RASH Verified 01/10/23 11:02 ibuprofen [From MOTRIN] Allergy Intermediate RASH Verified 01/10/23 11:02 Penicillins [PENICILLINS] Allergy Intermediate RASH Verified 01/10/23 11:02 motrin Allergy Unknown rash, Uncoded 01/10/23 11:02 swelling PCN Allergy Unknown rash, Uncoded 01/10/23 11:02 swelling Physical Exam Vital signs: Vital Signs Temp 98.2 F 01/30/23 11:22 Pulse 72 01/30/23 12:10 Resp 16 01/30/23 12:10 BP 117/70 01/30/23 11:22 Pulse Ox 100 01/30/23 11:22 O2 Del Method Room Air 01/30/23 11:22 Intake & Output 01/29/23 01/30/23 01/30/23 18:59 06:59 18:59 Intake Total 3000 / 3650 650 / 3650 1100 / 1100 Output Total 1100 / 1100 Balance 3000 / 3650 650 / 3650 0 / 0 Urine Output (Average ml/kg/hr) 1.87 Intake: Intake, Oral Amount 200 / 200 600 / 600 Intake (Blood Product) Amount 350 / 350 Red Blood Cells (E0382) Unit 350 / 350 [id number] Intake, IV Amount 3000 / 3100 100 / 3100 500 / 500 0.9 % Sodium Chloride 1,000 ml 3000 / 3000 @ 999 mls/hr IV .Q1H1M [facility] Rx#: [id number] 0.9 % Sodium Chloride 100 ml @ 100 / 100 100 mls/hr IV ONCE ONE Rx#: [id number] Dextrose 5 % and 0.9 % NaCl 1, 500 / 500 000 ml @ 80 mls/hr IVCONT . [id number] [facility] Rx#:[id number] Output: Output, Urine Amount 1100 / 1100 Other: Meal Refused No NPO No Lunch % Eaten 25% Dinner % Eaten 50% 50% Number of Unmeasured Voids 1 Urine Bedside Commode Bedside Commode Urine Color Yellow Yellow Last Bowel Movement 01/27/23 Weight 45.7 kg 48.9 kg Weight in Grams 91178 Weight 48.9 kg Hem/Onc Consult Result - Labs CBC & Chem 7: 02/01/23 06:45 02/01/23 13:17 Assessment and Plan Patient Active problem list reviewed?: Yes (1) Lymphoma malignant, large cell Status: Acute Assessment and plan: 77-year-old lady with recent diagnosis of diffuse large B-cell lymphoma of the stomach. She underwent staging workup: PET scan from 01/16 revealed: 1. Asymmetric increase tracer avidity is noted with SUV max of 6.4 without evidence of any discrete mass involving the left tonsillar fossa, may represent reactive changes. 2. Significant mural thickening associated with intense FDG avidity involving the fundus and body of the stomach with SUV max of 20.7 consistent with gastric involvement in this patient with diffuse large B-cell lymphoma. Specific note is made of perigastric solid intense FDG avid lymph nodes within the lesser omentum/gastrohepatic ligament region as well as in the region of the common hepatic artery. The dominant lymph node measures 4.2 x 2.1 cm with SUV max of 45.4. 3. Note is also made of intense FDG avidity associated with circumferential mural thickening of the cecum and adjacent proximal ascending colon with SUV max of 11.2, for which direct visualization/colonoscopy is recommended for further clarification. 4. Apparent mild increase tracer avidity throughout the entire axial skeleton, may represent hyperplastic marrow versus bone marrow infiltration or combination thereof. 5. No evidence of any lung parenchymal or liver or splenic involvement. Bone marrow biopsy was: Negative. CSF cytology was: Negative. According to the NCCN guidelines from 09/26, options include R-CHOP x3 followed by ISRT, for non bulky disease:<7.5 cm. Or R-CHOP x6 +/- ISRT, for bulky >7.5 cm. A relatively new regimen is the kadeem-R-CHP, which replaces the anti micro tubule drug Vincristine in R-CHOP with the novel agent Polatuzumab Vedotin. Kadeem is an antibody drug conjugate targeting the B-cell surface marker CD 79 be which is ubiquitously expressed in mature B-cell lymphomas. I have initiated staging workup. Her PET scan for initial staging. Scheduled for next week. A baseline echocardiogram, revealed normal cardiac function. She has had a Port-A-Cath placed on 01/01, to facilitate the chemotherapy. She was started on 1st cycle of chemotherapy with kadeem-R-CHP, regimen on 01/22. She tolerated it reasonably well. She did get the Neulasta to prevent chemotherapy-induced neutropenia. She presented to the ER yesterday, with complaints of acute on chronic epigastric abdominal pain, nausea, poor oral intake, fatigue, weakness, dyspnea with exertion. She has difficulties eating due to gastric mass. She has felt lightheaded. Abdominal CT in the ER does not show any evidence of acute GI bleed, chest x-ray without consolidation or effusion. Orthostatic blood pressure readings noted. Database: Hemoglobin 7.4, hematocrit 22.8 with no obvious signs of bleeding. She was given 3 L of IV fluids in the ER. A low blood count is most likely related to the recent chemotherapy. PLAN: Would give blood transfusion with a hemoglobin below 8. In general, Procrit is contraindicated in the setting of malignancy. Continue to focus on nutrition. Nutritional supplements. Will continue IV fluids and other supportive care as you are doing. Thank you for this consult, I will follow along with you, Cc: Alana Reaves. - Time Spent With Patient Time Spent with Patient (in minutes): 30
[2023-01-30] MEDS: 0.9 % Sodium Chloride Flush 3 ML SYRINGE IVFLUSH ×2 (16:46→19:47)
[2023-01-30 17:35] LABS: PLT CLUMP 1
[2023-01-30 17:37] LABS: Hematocrit 24.3 % (37.0-47.0); Hemoglobin 8.3 g/dl (12.0-16.0); Mean Corpuscular HGB Conc 34.2 g/dl (31.0-35.0); Mean Corpuscular Hemoglobin 28.1 pg (27.0-33.0); Mean Corpuscular Volume 82.4 fL (80.0-98.0); Mean Platelet Volume 10.3 fL (9.4-12.3); Red Blood Count 2.95 X10*6/uL (4.20-5.50); Red Cell Distribution Width 17.2 % (11.0-16.0)
[2023-01-30 17:39] LABS: Platelet Count 122 X10*3/uL (160-400)
[2023-01-30] MEDS: Dextrose 5 % and 0.9 % NaCl 1,000 ML 80 ML IVCONT (17:56)
[2023-01-30] MEDS: diphenhydrAMINE HCL 25 MG CAPSULE PO (19:48)
[2023-01-31] VITALS (12 sets, daily range): BP systolic 76–130; BP diastolic 49–76; PULSE 68–90; RESP 18–20; TEMP 36.4–37.4; O2SAT 95–100
[2023-01-31] MEDS: Dextrose 5 % and 0.9 % NaCl 1,000 ML 80 ML IVCONT (05:16)
[2023-01-31] MEDS: Omeprazole 20 MG CAPSULE.DR PO (05:18)
[2023-01-31 07:33] LABS: Hematocrit 23.1 % (37.0-47.0); Hemoglobin 7.6 g/dl (12.0-16.0); Mean Corpuscular HGB Conc 32.9 g/dl (31.0-35.0); Mean Corpuscular Hemoglobin 27.5 pg (27.0-33.0); Mean Corpuscular Volume 83.7 fL (80.0-98.0); Mean Platelet Volume 11.6 fL (9.4-12.3); Platelet Count 123 X10*3/uL (160-400); Red Blood Count 2.76 X10*6/uL (4.20-5.50); Red Cell Distribution Width 17.1 % (11.0-16.0)
[2023-01-31 07:50] LABS: White Blood Count 1.2 X10*3/uL (4.8-10.8)
[2023-01-31 08:13] LABS: Anion Gap 8 (12-20); Blood Urea Nitrogen 4 mg/dL (9-16); Calcium 7.5 mg/dL (8.4-10.2); Carbon Dioxide 24 mmol/L (22-29); Chloride 114 mmol/L (96-108); Creatinine Clr Calc Pharmacy 55.4; Estimated Glomerular Filt Rate > 60; Glucose Random 96 mg/dL (60-115); Sodium 143 mmol/L (135-145)
[2023-01-31] MEDS: Cholecalciferol (Vitamin D3) 25 MCG TABLET 125 MCG PO (08:15)
[2023-01-31] MEDS: Cyanocobalamin (Vitamin B-12) 1,000 MCG TABLET 1000 MCG PO (08:16)
[2023-01-31 08:28] LABS: Potassium 2.8 mmol/L (3.3-5.1)
[2023-01-31] MEDS: bisacodyL 5 MG TABLET.DR PO (09:06)
--- NOTE | 2023-01-31 09:55 | HO.PM.IMPN ---
Subjective Subjective Date of Service: 01/31/23 Interval History: C/o constipation No N/V No dizziness/lightheadedness Orthostatic VS: Lying 90/55, Sitting 81/56, Standing 76/49 This history was taken in [place] from the patient. Hb 7.6 Review of Systems Review of Systems: Yes all other systems are reviewed and are negative Physical Exam Vital Signs: Vital Signs: Last Vital Signs Temp 99.4 F 01/31/23 07:11 Pulse 90 01/31/23 09:46 Resp 18 01/31/23 08:06 BP 76/49 L 01/31/23 09:46 Pulse Ox 97 01/31/23 07:11 O2 Del Method Room Air 01/31/23 07:11 BMI result Body Mass Index 21.1 Gen: in no acute distress HEENT: sclera anicteric, pale but moist mucus membranes Neck: supple Lungs: clear to auscultation bilaterally Heart: regular rate and rhythm, no murmurs Abd: soft, non-tender, non-distended Ext: no edema Skin: warm/well-perfused, R subclavian port with no signs of infection Neuro: alert and oriented x3, no focal findings Psych: appropriate affect Objective Data Active Medications Acetaminophen (Acetaminophen 325 Mg Tablet) 650 mg PO Q6H PRN PRN Reason: Pain, Mild (Pain Scale 1-3) Albuterol Sulfate (Albuterol Sulfate (0.083%) 2.5 Mg/3 Ml Vial.Neb) 2.5 mg INHALE Q4H PRN PRN Reason: Wheezing Bisacodyl (Bisacodyl 5 Mg Tablet.) 5 mg PO DAILY PRN PRN Reason: constipation Last Admin: 01/31/23 09:06 Dose: 5 mg Documented By: YANELI Cyanocobalamin (Cyanocobalamin (Vitamin B-12) 1,000 Mcg Tablet) 1,000 mcg PO DAILY [facility] Last Admin: 01/31/23 08:16 Dose: 1,000 mcg Documented By: YANELI Dicyclomine HCl (Dicyclomine Hcl 10 Mg Capsule) 20 mg PO QID PRN PRN Reason: abdominal pain Diphenhydramine HCl (Diphenhydramine Hcl 25 Mg Capsule) 25 mg PO Q4H PRN PRN Reason: Itching Last Admin: 01/30/23 19:48 Dose: 25 mg Documented By: TACHO Fluticasone Propionate (Fluticasone Propionate Nasal 16 Gm [place]) 1 spray NOSTRIL-B BID PRN PRN Reason: Allergy Symptoms Furosemide (Furosemide 20 Mg Tablet) 20 mg PO DAILY PRN; Protocol PRN Reason: Edema Heparin Sodium (Porcine) (Heparin Sodium,Porcine Flush 50 Units/5 Ml Syringe) 50 units IVFLUSH [facility] Last Admin: 01/31/23 08:13 Dose: Not Given Documented By: YANELI Non-Admin Reason: IV Running Loratadine (Loratadine 10 Mg Tablet) 10 mg PO DAILY PRN PRN Reason: Allergic Symptoms Omeprazole (Omeprazole 20 Mg Capsule.Dr) 20 mg PO DAILY@0630 [facility] Last Admin: 01/31/23 05:18 Dose: 20 mg Documented By: ANATOLY Ondansetron HCl (Ondansetron Hcl 4 Mg/2 Ml Vial) 4 mg IVPUSH Q8H PRN PRN Reason: Nausea and Vomiting Oxycodone HCl (Oxycodone Hcl Immed Release 5 Mg Tablet) 5 mg PO Q6H PRN PRN Reason: Pain, Moderate(Pain Scale 4-6) Sodium Chloride (0.9 % Sodium Chloride Flush 3 Ml Syringe) 3 ml IVFSH [facility] Last Admin: 01/31/23 08:13 Dose: Not Given Documented By: YANELI Non-Admin Reason: IV Running Tiotropium [place] (Tiotropium [place] 2.5 Mcg Inhaler) 1 puff INHALE RDAILY [facility] Last Admin: 01/31/23 08:02 Dose: 1 puff Documented By: CHLOE Vitamin D (Cholecalciferol (Vitamin D3) 25 Mcg Tablet) 125 mcg PO DAILY [facility] Last Admin: 01/31/23 08:15 Dose: 125 mcg Documented By: YANELI Labs 01/31/23 06:44 01/31/23 06:44 Labs: Laboratory Results - last 24 hr 01/29/23 01/30/23 01/31/23 19:09 17:27 06:44 MCV 82.4 83.7 MCH 28.1 27.5 MCHC 34.2 32.9 RDW 17.2 H 17.1 H Plt Count 122 L D 123 L MPV 10.3 11.6 Absolute Nucleated RBC 0.000 0.000 Nucleated RBC % (auto) 0.0 0.0 Anion Gap 8 L Estim Creat Clear Calc 55.4 Estimated GFR > 60 Random Glucose 96 Calcium 7.5 L D Blood Type O Positive Antibody Screen NEGATIVE Crossmatch See Detail Microbiology Microbiology Results: Microbiology 01/29/23 Unknown Urine Culture - Final Urine clean catch - Urine huynh top Assessment and Plan (1) Decreased oral intake: Status: Acute Plan d3 77yo F with diffuse large B-cell gastric lymphoma on chemotherapy presenting with anorexia, abd pain, nausea, fatigue, lightheadedness admitted for anemia anemia, acute/chronic, non-blood loss, due to chemotherapy orthostatic hypotension - transfused 1u pRBCs 01/29, give another 1u today - Heme/Onc consulted - recheck orthostatics in AM thrombocytopenia, due to chemotherapy - monitor CBC hypoK - replete IV/PO, recheck level in AM, check Mg as well mod pr-vivek malnutrition - Ensure chronic asthma, no acute exac - prn albuterol, controller tiotropium diffuse large B-cell gastric lymphoma - Heme/Onc follow-up constipation - bowel regimen VTE ppx - SCDs dispo - home possibly tomorrow In my clinical judgment, the patient requires continued inpatient hospitalization for the following reasons: transfusion, IV electrolyte repletion Time Spent With Patient Time: Total time managing care of this patient today _45___ minutes. Quality Stroke Does the patient have a stroke diagnosis?: No VTE Prior VTE?: No VTE Risk Level:: Medical - moderate - high VTE Device Contraindication: N/A - Device Ordered VTE Drug Contraindication: Treatment Not Indicated
[2023-01-31 11:03] LABS: Magnesium 1.7 mg/dL (1.6-2.6)
[2023-01-31] MEDS: Sennosides/Docusate Sodium TABLET 2 TAB PO (11:22)
[2023-01-31] MEDS: Potassium Chloride ER 20 MEQ TAB.ER.PRT 40 MEQ PO (11:22)
[2023-01-31] MEDS: Lactulose 20 GM/30 ML SOLUTION 40 GM PO (11:22)
[2023-01-31] MEDS: polyethylene glycoL 3350 17 GM POWD.PACK PO (11:23)
--- NOTE | 2023-01-31 14:02 | MHC.CM.PN ---
[facility] reports that Pt has services from [facility], but agency does not have a provider for 1-2 weeks, and they requested [facility] services. [facility] accepted Pt. [facility] informed. CM to follow and assist with d/c plan.
[2023-01-31] MEDS: Potassium Chloride/H20 10 MEQ/100 ML PIGGYBACK 100 MEQ IV ×4 (14:50→19:06)
[2023-02-01] VITALS (8 sets, daily range): BP systolic 90–110; BP diastolic 53–67; PULSE 69–79; RESP 18; TEMP 36.3–37.2; O2SAT 95–99
[2023-02-01] MEDS: Heparin Sodium,Porcine Flush 50 UNITS/5 ML SYRINGE IVFLUSH ×3 (00:43→15:15)
[2023-02-01] MEDS: 0.9 % Sodium Chloride Flush 3 ML SYRINGE IVFLUSH ×2 (00:43→09:26)
[2023-02-01] MEDS: Omeprazole 20 MG CAPSULE.DR PO (06:17)
[2023-02-01 07:16] LABS: Hematocrit 26.8 % (37.0-47.0); Hemoglobin 9.2 g/dl (12.0-16.0); Mean Corpuscular HGB Conc 34.3 g/dl (31.0-35.0); Mean Corpuscular Volume 81.7 fL (80.0-98.0); Mean Platelet Volume 11.8 fL (9.4-12.3); Platelet Count 113 X10*3/uL (160-400); Red Blood Count 3.28 X10*6/uL (4.20-5.50)
[2023-02-01 07:32] LABS: Anion Gap 9 (12-20); Blood Urea Nitrogen 4 mg/dL (9-16); Calcium 7.9 mg/dL (8.4-10.2); Carbon Dioxide 23 mmol/L (22-29); Chloride 115 mmol/L (96-108); Creatinine Clr Calc Pharmacy 53.6; Estimated Glomerular Filt Rate > 60; Glucose Random 77 mg/dL (60-115); Magnesium 1.6 mg/dL (1.6-2.6); Potassium 3.2 mmol/L (3.3-5.1); Sodium 144 mmol/L (135-145)
[2023-02-01] MEDS: Cyanocobalamin (Vitamin B-12) 1,000 MCG TABLET 1000 MCG PO (09:25)
[2023-02-01] MEDS: Potassium Chloride/H20 10 MEQ/100 ML PIGGYBACK 100 MEQ IV ×2 (09:25→11:05)
[2023-02-01] MEDS: Cholecalciferol (Vitamin D3) 25 MCG TABLET 125 MCG PO (09:25)
--- NOTE | 2023-02-01 12:14 | P.DS_ITS ---
DS: Providers Provider Date of Service: 02/01/23 Date of admission: 01/29/23 16:38 Date of discharge: 02/01/23 Primary care physician: Mis Gutierrez MD Consults: 01/29/23 16:37 Consult to Hematology / Oncology Routine Consulting Provider: Rowena Becerril Reason for consultation: FTT DS: Diagnosis Discharge Diagnosis (1) Decreased oral intake: Status: Acute (2) Orthostasis: Status: Acute (3) Lymphoma malignant, large cell: Status: Acute (4) Gastric lymphoma: Status: Acute (5) Anemia associated with chemotherapy: Status: Acute (6) Chemotherapy-induced thrombocytopenia: Status: Acute (7) Hypokalemia: Status: Acute (8) Moderate protein malnutrition: Status: Acute DS: Summary Hospital Course Hospital Course: from admission H+P, 01/29/23, by hospitalist PATIENT ADMITTING REPRESENTATIVE Alana Reaves: 77-year-old woman with history of large B-cell lymphoma of stomach origin currently on high-dose chemotherapy presented to the ER with complaints of acute on chronic epigastric abdominal pain, nausea, fatigue, weakness, dyspnea with exertion and lightheadedness with poor oral intake over the last week. She has difficulties eating due to gastric mass. Abdominal CT in the ER does not show any evidence of acute GI bleed, chest x-ray without consolidation or effusion. Orthostatic blood pressure readings noted. Hemoglobin 7.4, hematocrit 22.8 with no obvious signs of bleeding. She was given 3 L of IV fluids in the ER. She will be admitted for further management and treatment of acute on chronic non blood loss anemia secondary to chemotherapy. 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 She was found to have orthostatic hypotension and anemia and was admitted to the hospitalist service. Hospital course by problem: anemia, acute/chronic, non-blood loss, due to chemotherapy orthostatic hypotension - transfused 1u pRBCs 01/29 and another 1u on 01/31 with appropriate response in Hb >8 as per Heme-Onc consultation; orthostasis resolved thrombocytopenia, due to chemotherapy - mild, >100 hypoK - repleted IV/PO mod pr-vivek malnutrition - treated with Ensure diffuse large B-cell gastric lymphoma - will follow up with [facility] [place] Heme/Onc as scheduled constipation - treated with stool softeners Time Spent with Patient Time attestation: Total time managing care of this patient today __40__ minutes. Discharge coordination time: Greater than 30 minutes Quality: Safe Use of Opioids Does Pt have an Active Cancer Diagnosis on the Problem List?: No Quality: Stroke Does the patient have a stroke diagnosis?: No Physical Exam Vital Signs: Vital Signs: Last Vital Signs Temp 97.9 F 02/01/23 11:39 Pulse 72 02/01/23 11:39 Resp 18 02/01/23 11:39 BP 90/53 L 02/01/23 11:39 Pulse Ox 96 02/01/23 11:39 O2 Del Method Room Air 02/01/23 11:39 BMI result Body Mass Index 21.1 Gen: in no acute distress HEENT: sclera anicteric, pale but moist mucus membranes Neck: supple Lungs: clear to auscultation bilaterally Heart: regular rate and rhythm, no murmurs Abd: soft, non-tender, non-distended Ext: no edema Skin: warm/well-perfused, R subclavian port with no signs of infection Neuro: alert and oriented x3, no focal findings Psych: appropriate affect DS: Data Data Completed and Pending Completed studies during hospitalization [Text1]: Procedures Excision of Stomach, Pylorus, Via Natural or Artificial Opening Endoscopic, Diagnostic (11/25/22) Labs on day of discharge: Laboratory Results - last 24 hr 01/29/23 01/31/23 02/01/23 19:09 06:44 06:45 WBC 3.0 L RBC 3.28 L Hgb 9.2 L D Hct 26.8 L MCV 81.7 MCH 28.0 MCHC 34.3 RDW 17.0 H Plt Count 113 L MPV 11.8 Absolute Nucleated RBC 0.000 Nucleated RBC % (auto) 0.0 Smear Path Review Sodium 144 Potassium 3.2 L Chloride 115 H Carbon Dioxide 23 Anion Gap 9 L BUN 4 L Creatinine 0.64 Estim Creat Clear Calc 53.6 Estimated GFR > 60 Random Glucose 77 Calcium 7.9 L Magnesium 1.6 Crossmatch See Detail Discharge Plan Discharge Anticipated Discharge Date/Time: 02/01/23 16:12 Patient Disposition: Home, Self-Care Discharge Diagnosis: anemia, acute/chronic, non-blood loss, due to chemotherapy orthostatic hypotension thrombocytopenia, due to chemotherapy hypokalemia malnutrition diffuse large B-cell gastric lymphoma Referrals: Mis Gutierrez MD [Primary Care Provider] - 1 Week Discharge Medications: New polyethylene glycol 3350 17 gram Powder In Packet 17 g PO DAILY PRN (Reason: constipation) Qty: 30 0RF Continued fluticasone propionate 50 mcg/actuation spray,suspension 1 spray intranasal BID PRN (Reason: Allergy Symptoms) Incruse Ellipta 62.5 mcg/actuation blister with device 1 inh inhalation DAILY sennosides [senna] 8.6 mg tablet 8.6 - 17.2 mg PO DAILY PRN (Reason: Constipation) acetaminophen 325 mg Tablet 325 mg PO QID PRN (Reason: Pain) oxycodone 5 mg Tablet 5 mg PO Q6H PRN (Reason: Pain, Moderate(Pain Scale 4-6)) Qty: 20 0RF Rx Instructions: Partial Fill upon patient request. dicyclomine 20 mg tablet 20 mg PO QID PRN (Reason: abdominal pain) Qty: 20 0RF albuterol sulfate 2.5 mg /3 mL (0.083 %) solution for nebulization 2.5 mg inhalation Q4H PRN (Reason: Wheezing) diphenhydramine HCl 25 mg capsule 25 mg PO Q4-6H PRN (Reason: Itching) bisacodyl 5 mg tablet,delayed release (DR/EC) 5 mg PO DAILY PRN (Reason: constipation) dexamethasone 4 mg tablet 4 mg PO BID PRN (Reason: day 2 or 3 of chemo) Rx Instructions: Take 4 mg p.o. b.i.d. days 2 and 3 of chemo, Q 21 days. prednisone 20 mg tablet 60 mg PO DAILY PRN (Reason: day 1-5 of chemo) Rx Instructions: take 60 mg p.o. daily days 1-5 of chemotherapy Q 21 days. ondansetron 8 mg tablet,disintegrating 8 mg PO Q8H PRN (Reason: Nausea) furosemide 20 mg tablet 20 mg PO DAILY PRN (Reason: Edema) albuterol sulfate 90 mcg/actuation HFA aerosol inhaler 2 puff inhalation Q4H PRN (Reason: Shortness Of Breath Or Wheezing) cyanocobalamin (vitamin B-12) 1,000 mcg tablet 1,000 mcg PO DAILY atorvastatin 80 mg tablet 80 mg PO QPM omeprazole 20 mg capsule,delayed release(DR/EC) 20 mg PO DAILY cholecalciferol (vitamin D3) 125 mcg (5,000 unit) tablet 125 mcg PO DAILY loratadine 10 mg tablet 10 mg PO DAILY PRN (Reason: Allergic Symptoms) Discharge Orders: Discharge Order (Routine); Ordered 02/01/23 Ordered By: Jason Lockwood Diet: Advance to usual diet Activity on Discharge: As tolerated Stand Alone Forms: Patient Portal Discharge page Other Ambulatory Orders: Basic Metabolic Panel (Routine) Timeframe: 1 Week Facility: [facility] - Location: Laboratory Ordered By: Jason Lockwood Complete Blood Count Auto Diff (Routine) Timeframe: 1 Week Facility: [facility] - Location: Laboratory Ordered By: Jason Lockwood Care Plan Goals: recovery from anemia treat lymphoma Health Concerns: anemia, acute/chronic, non-blood loss, due to chemotherapy orthostatic hypotension thrombocytopenia, due to chemotherapy hypokalemia malnutrition diffuse large B-cell gastric lymphoma Plan of Treatment: follow up as scheduled with [facility] [place] Oncology recheck labs (CBCd, BMP) in 1 week use Miralax if needed for constipation take Ensure 1 can 2x a day Please follow up with your primary care doctor within 1 week. Return to the hospital if you experience recurrent or worsening symptoms. Assessment: See Discharge Summary.
[2023-02-01 13:40] LABS: Anion Gap 12 (12-20); Blood Urea Nitrogen 3 mg/dL (9-16); Calcium 7.8 mg/dL (8.4-10.2); Carbon Dioxide 21 mmol/L (22-29); Chloride 113 mmol/L (96-108); Creatinine Clr Calc Pharmacy 54.5; Estimated Glomerular Filt Rate > 60; Glucose Random 74 mg/dL (60-115); Potassium 3.5 mmol/L (3.3-5.1); Sodium 142 mmol/L (135-145)
--- NOTE | 2023-02-01 14:23 | P.F2F_ITS ---
Service Date Service Date: 02/01/23 Encounter Date of encounter: 02/01/23 Reasons for Services Signs and symptoms assessed: anemia, orthostasis Reason for halfway: medication management, medication treatment and teach disease management Reason for physical therapy: home safety and mobility, therapeutic exercises, gait/transfer training, assess need for DME, ADL training and energy conservation MD Overseeing Care: Mis Gutierrez Homebound: Leaving the home is medically contraindicated at this time without the asist of a device and/or another person due th the listed conditions above and below. Reason homebound: unsteady gait / fall risk, fall risk related to blood pressure changes and immunosuppression / infection risk Certification: Based on the above findings, I certify that this patient is confined to the home and needs intermittent halfway care, physical therapy and/or speech therapy, or continues to need occupational therapy. The patient is under my care, and I have initiated the establishment of the plan of care. The patient will be followed by a physician who will periodically review the plan of care. Time Spent With Patient Time: Total time managing care of this patient today ____ minutes.
--- NOTE | 2023-02-01 14:47 | P.CDIM_ITS ---
PROVIDER RESPONSE TEXT: To clarify, the appropriate diagnosis supported by the clinical indicators: Antineoplastic chemotherapy induced pancytopenia QUERY TEXT: PHYSICIAN'S DOCUMENTATION REQUEST Date of Query: 02/01/2023 08:42 AM EDT Patient Name: Delmy Ann Admit Date: 01/29/2023 Dear Jason Lockwood, A review of the medical record indicates additional documentation may be needed. Please review below and update the documentation accordingly. Clinical Indicators: LAB FINDINGS: WBC 1.2 RBC 2.76 Plt 122 L Hematology Oncology notes: low blood count most likely related to recent chemotherapy B-cell lymphoma with gastric mass undergoing chemotherapy. Based on the above, is there a diagnosis that correlates with these lab findings: Pancytopenia Antineoplastic chemotherapy induced pancytopenia Labs indicator other diagnosis please specify Other (explain)Clinically unable to determine (explain)Thank you, Elly Guerrero, CCS, CDIS Use of terms such as suspected, likely, concern for, or probable (associated with a specific diagnosi s that is being evaluated, monitored, or treated as if it exists) are acceptable and can be coded in the inpatient se tting, when documented at the time of discharge. Please use your independent medical judgment in providing your response. THIS QUERY IS PART OF THE PERMANENT MEDICAL RECORD
--- NOTE | 2023-02-01 14:47 | P.CDIM_ITS ---
PROVIDER RESPONSE TEXT: To clarify, the appropriate diagnosis supported by the clinical indicators: Clinically unable to determine (explain): unclear history QUERY TEXT: PHYSICIAN'S DOCUMENTATION REQUEST Date of Query: 02/01/2023 10:16 AM EDT Patient Name: Delmy Ann Admit Date: 01/29/2023 Dear Jason Lockwood, A review of the medical record indicates additional documentation may be needed. Please review below and update the documentation accordingly. Clinical Indicators: ED 01/29 : [facility] Kidney disease Hematology Oncology note 01/30 : Kidney disease Please clarify which of the following accurately represents the patient's renal status: CKD, please provide stage Other please specify Other (explain)Clinically unable to determine (explain)Thank you, Elly Guerrero, CCS, CDIS Use of terms such as suspected, likely, concern for, or probable (associated with a specific diagnosi s that is being evaluated, monitored, or treated as if it exists) are acceptable and can be coded in the inpatient se tting, when documented at the time of discharge. Please use your independent medical judgment in providing your response. THIS QUERY IS PART OF THE PERMANENT MEDICAL RECORD
--- NOTE | 2023-02-01 15:05 | MHC.CM.PN ---
Pt is medically cleared for D/C home with new [facility]. Pts son to transport her home.
--- NOTE | 2023-02-13 08:33 | P.PNHO-ONC_ITS ---
Medical Summary - Medical Summary Date of Service: 02/13/23 Chief complaint: Follow-up for: Gastric lymphoma. Primary Care Provider: Mis Gutierrez MD Medical Summary: DIAGNOSIS: GASTRIC LYMPHOMA. STATUS POST 1 CYCLE OF CHEMO. Interval History Interval history: Delmy Ann is a 77 year old lady who presented to the ED yesterday. 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 She received her 1st cycle of chemotherapy on 01/22. She was admitted to the hospital between 01/29 and 02/01. Discharge summary: 77-year-old woman with history of large B-cell lymphoma of stomach origin currently on high-dose chemotherapy. She presented to the ER with complaints of acute on chronic epigastric abdominal pain, nausea, fatigue, weakness, dyspnea with exertion and lightheadedness with poor oral intake over the last week. She has difficulties eating due to gastric mass. She was found to have orthostatic hypotension and anemia. Abdominal CT in the ER does not show any evidence of acute GI bleed, chest x- ray without consolidation or effusion. Orthostatic blood pressure readings noted. Hemoglobin 7.4, hematocrit 22.8 with no obvious signs of bleeding. She was given 3 L of IV fluids in the ER. She was admitted for further management and treatment of acute on chronic non blood loss anemia secondary to chemotherapy. Anemia, acute/chronic, non-blood loss, due to chemotherapy. Orthostatic hypotension - transfused 1u pRBCs 01/29 and another 1u on 01/31 with appropriate response in Hb >8; orthostasis resolved Thrombocytopenia, due to chemotherapy - mild, >100 hypoK:- repleted IV/PO mod pr-vivek malnutrition:- treated with Ensure diffuse large B-cell gastric lymphoma;- will follow up with [facility] Heme/Onc as scheduled PRESENTING HISTORY: She presented to the ER with complaints of acute on chronic epigastric abdominal pain, nausea, fatigue, weakness, dyspnea with exertion and lightheadedness with poor oral intake over the last week. She has difficulties eating due to gastric mass. Abdominal CT in the ER does not show any evidence of acute GI bleed, chest x- ray without consolidation or effusion. Orthostatic blood pressure readings noted. Database: Hemoglobin 7.4, hematocrit 22.8 with no obvious signs of bleeding. She was given 3 L of IV fluids in the ER. She was admitted for further management and treatment of acute on chronic non- blood loss anemia secondary to chemotherapy. Review of Systems 2 Review of Systems: Denies any recent fever chills or decrease in appetite respiratory denies any shortness of breath coverage production cardiovascular denies chest pain gastrointestinal see HPI genitourinary denies any dysuria frequency or hematuria musculoskeletal denies any joint pain or swelling neuropsych denies any weakness or seizures all other systems reviewed are negative [facility] Medical History: 1. Diffuse large B-cell lymphoma: She was originally seen on 11/28 when she was in house. Narrative: She presented to [facility] with abdominal pain of 3 months duration. This was associated with weight loss 30-40 lbs, early satiety sweats. She is able to keep food down but feels bloated. She complains of constipation, using stool softeners. Denies nausea, but had 1 episode of watery vomiting. She was seen in ED in September of 2022, at that time CT abdomen and pelvis was unremarkable. Now CT abdomen and pelvis showed abnormality in stomach suspicious for primary gastric malignancy with associated metastatic adenopathy differential includes gastric lymphoma. In the emergency room pt treated with IV morphine. She denies urinary burning or frequency but does complain of nocturia. Urine analysis is positive for 4+ bacteria, and pyuria and leukocyte esterase. She was noted to have a drop in hematocrit since last September, electrolytes are stable, low albumin. CT scan of the abdomen pelvis from 11/25: Abnormal appearance of the stomach with diffuse wall thickening and enhancement, most prominent along the greater curvature of the stomach. There is associated perigastric fat stranding and edema and prominent mesenteric hyperemia. There are multiple large masses seen in the lesser sac, including 2 of the masses appearing completely solid and one of the masses appearing centrally hypoenhancing. Findings are suspicious for a primary gastric malignancy with associated metastatic adenopathy. Other entities, such as gastric lymphoma could be considered in the differential. Further assessment with endoscopy and biopsy is recommended. She underwent an upper endoscopy yesterday by Dr. Caldwell. Findings: Her large polypoidal mass with central ulceration in the gastric body along the greater curvature extending from 36-58 cm and covering 75% of the gastric circumferential. Diffuse gastric erythema. Biopsies taken from antrum to check for H pylori. Pathology revealed: Diffuse large B cell lymphoma, nongerminal center type. Fish studies: Negative for BCL2, BCL6 and c-myc. Anemia Abnormal CT of the abdomen Stomach cancer Kidney disease Asthma Surgical History: Tubal ligation status History of bladder surgery History of cholecystectomy. Social History: Household Members: Family Housing: Apartment Do you presently have visiting nurse or other home services: No Patient Tobacco Use Status: Never used Tobacco Advance Directives: No Advance Directives Information Provided: Yes Advance Directives Date on File: 02/12/20 service: No 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al status: disabled 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: r handed [employer] Medical History: Medical History (Last Reviewed 02/23/23 @ 21:27 by Michael Staton MD) Abnormal CT of the abdomen Anemia Asthma Kidney disease Stomach cancer Surgical History: Surgical History (Last Reviewed 02/23/23 @ 21:27 by Michael Staton MD) History of bladder surgery History of cholecystectomy Tubal ligation status Social History: Social History (Last Reviewed 02/23/23 @ 21:27 by Michael Staton MD) Living Situation History: Household Members: Children Housing: Apartment Do you presently have visiting nurse or other home services: No Alcohol History Details: 1. How often do you have a drink containing alcohol?: a. Never AUDIT-C Alcohol total score: 0 Currently Displaying Signs/Symptoms of Alcohol Withdrawal: No Tobacco History: Patient Tobacco Use Status: Never used Tobacco e-Cigarette/Vaping Use: Never Used Substance Use History: Use of substances other than those prescribed or required for medical reasons : No Currently Displaying Signs/Symptoms of Drug Intoxication Withdrawal: No Domestic Abuse History: Have you been hit, kicked, punched, or otherwise hurt by someone within the past year? If so, by whom?: No Do you feel safe in your current relationship?: Yes Is there a partner from a previous relationship who is making you feel unsafe now?: No Are you made to feel afraid or neglected: No Advance Directives: Advance Directives: Yes Advance Directives on File: Yes Advance Directives Date on File: 02/12/20 Homicidal Assessment: Do you have thoughts of harming others: None Nutrition Assessment: Recently lost weight without trying: Yes How much weight loss: 2-13 pounds Eating poorly because of decreased appetite: Yes Nutrition screen score: 4 Nutrition Risks: No Nutritional Risk Patient : No : No Occupation Assessmet: service: No 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al status: disabled 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: r handed Home Medications and Allergies Home Medications Medication Instructions Recorded Confirmed Type albuterol sulfate 90 mcg/actuation 2 puff inhalation Q4H PRN 10/10/21 02/23/23 History aerosol inhaler Shortness Of Breath Or Wheezing atorvastatin 80 mg tablet 80 mg PO QPM 10/10/21 02/23/23 History cholecalciferol (vitamin D3) 125 125 mcg PO DAILY 10/10/21 02/23/23 History mcg (5,000 unit) tablet furosemide 20 mg tablet 20 mg PO DAILY PRN Edema 10/10/21 02/23/23 History loratadine 10 mg tablet 10 mg PO DAILY PRN Allergic 10/10/21 02/23/23 History Symptoms omeprazole 20 mg capsule,delayed 20 mg PO DAILY 10/10/21 02/23/23 History release fluticasone propionate 50 1 spray intranasal BID PRN Allergy 11/25/22 02/23/23 History mcg/actuation nasal Symptoms spray,suspension albuterol sulfate 2.5 mg/3 mL 2.5 mg inhalation Q4H PRN Wheezing 01/29/23 02/23/23 History (0.083 %) solution for nebulization dexamethasone 4 mg tablet 4 mg PO BID PRN day 2 or 3 of chemo 01/29/23 02/23/23 History prednisone 20 mg tablet 60 mg PO DAILY PRN day 1-5 of chemo 01/29/23 02/23/23 History sulfamethoxazole 800 1 tab PO DAILY 02/23/23 02/23/23 History mg-trimethoprim 160 mg tablet Allergies Allergy/AdvReac Type Severity Reaction Status Date / Time codeine [CODEINE] Allergy Intermediate RASH Verified 01/10/23 11:02 ibuprofen [From MOTRIN] Allergy Intermediate RASH Verified 01/10/23 11:02 Penicillins [PENICILLINS] Allergy Intermediate RASH Verified 01/10/23 11:02 motrin Allergy Unknown rash, Uncoded 01/10/23 11:02 swelling PCN Allergy Unknown rash, Uncoded 01/10/23 11:02 swelling Exam Vital signs: Vital Signs Temp 97.9 F 02/01/23 11:39 Pulse 72 02/01/23 11:39 Resp 18 02/01/23 11:39 BP 90/53 L 02/01/23 11:39 Pulse Ox 96 02/01/23 11:39 O2 Del Method Room Air 02/01/23 11:39 Weight 48.9 kg BMI result Body Mass Index 21.1 Data - Labs CBC & Chem 7: 02/01/23 06:45 02/01/23 13:17 Labs: 01/29/23 Urine Culture Routine 01/29/23 08:45 COVID-19 ID NOW (Valenzuela) Stat 01/29/23 08:46 Influenza A B2 ID NOW (Valenzuela) Stat 01/29/23 09:09 Vital Signs, Orthostatic NOW 01/29/23 09:15 0.9 % Sodium Chloride [Ns] 1,000 ml IV 999 mls/hr 01/29/23 09:16 XR chest 1V Stat 01/29/23 09:44 Basic Metabolic Panel Stat Complete Blood Count Man Dif Stat Lipase Stat Liver Panel Stat Magnesium Stat Troponin-I High Sensitivity Stat 01/29/23 10:05 Add Laboratory Test Stat 01/29/23 10:45 0.9 % Sodium Chloride [Ns] 1,000 ml IV 999 mls/hr 0.9 % Sodium Chloride [Ns] 1,000 ml IV 999 mls/hr 01/29/23 11:21 Occult Blood, Stool x1 [OBSX1] Stat UA ClnCatch+Micro w/rflx Cult Stat 01/29/23 13:03 CT gi bleed abd pel wo/w IVcon Stat 01/29/23 13:46 iohexoL 350 MG/ML 100 ML [Omnipaque 350 MG/ML] 80 ml IV ONCE ONE 01/29/23 15:25 Troponin-I High Sensitivity Stat 01/29/23 16:37 Ambulate QSHIFT WHILE AWAKE Compression Therapy QSHIFT Code Status Routine Acetaminophen [Tylenol] 650 mg PO Q6H PRN ondansetron HCL [Zofran] 4 mg IVPUSH Q8H PRN 01/29/23 16:38 Admission Assessment - Modified NOW Cont. Telemetry w/Vital Sign limit Q4HR IV insert/maintain DAILY@1000,2200 Intake and Output Q8HR Pulse Oximetry Q4HR Vital Signs Q4HR 01/29/23 16:42 0.9 % Sodium Chloride [Ns] 100 ml IV ONCE 01/29/23 16:45 Dextrose 5 % and 0.9 % NaCl [D5ns] 1,000 ml IVCONT 80 mls/hr 01/29/23 17:14 Albuterol Sulfate (0.083%) [Ventolin (0.083%)] 2.5 mg INHALE Q4H PRN Dicyclomine HCl [Bentyl] 20 mg PO QID PRN Fluticasone Propionate Nasal [Flonase Nasal] 1 spray NOSTRIL-B BID PRN Furosemide [Lasix] 20 mg PO DAILY PRN Loratadine [Claritin] 10 mg PO DAILY PRN bisacodyL [Dulcolax] 5 mg PO DAILY PRN diphenhydrAMINE HCL [Benadryl] 25 mg PO Q4H PRN oxyCODONE HCl Immed Release [Roxicodone] 5 mg PO Q6H PRN 01/29/23 19:09 PRBC [Red Blood Cells] Stat Type and Screen Stat 01/30/23 00:00 0.9 % Sodium Chloride Flush [NS Flush] 3 ml IVFLUSH QSHIFT 01/30/23 00:22 Glucose, Whole Blood Routine 01/30/23 00:24 Glucose, Whole Blood Routine 01/30/23 06:30 Omeprazole [PriLOSEC] 20 mg PO DAILY@0630 01/30/23 08:00 Tiotropium [place] [Spiriva Respimat] 1 puff INHALE RDAILY 01/30/23 08:18 Alteplase Cath Clear [Cathflo Activase] 1 mg INTRACATH ONCE ONE 01/30/23 08:21 IV insert/maintain DAILY@1000,2200 01/30/23 09:00 Cholecalciferol (Vitamin D3) [Vitamin D3] 125 mcg PO DAILY Cyanocobalamin (Vitamin B-12) [Vitamin B-12] 1,000 mcg PO DAILY 01/30/23 13:05 Physical Therapy Eval & Treat NOW 01/30/23 16:00 Heparin Sodium,Porcine Flush 50 units IVFLUSH QSHIFT 01/30/23 17:27 CBC NO DIFF [Complete Blood Count no Diff] Stat 01/31/23 06:44 BMP [Basic Metabolic Panel] AM CBC NO DIFF [Complete Blood Count no Diff] AM Magnesium Routine 01/31/23 08:21 Vital Signs, Orthostatic NOW 01/31/23 08:22 0.9 % Sodium Chloride [Ns] 100 ml IV ONCE 01/31/23 09:54 Lactulose [Chronulac] 40 gm PO ONCE ONE 01/31/23 09:55 Sennosides/Docusate Sodium [Senokot S] 2 tab PO BID bisacodyL [Dulcolax] 10 mg PO DAILY PRN polyethylene glycoL 3350 [Miralax] 17 gm PO DAILY 01/31/23 09:58 Potassium Chloride ER [Klor-con] 40 meq PO ONCE ONE 01/31/23 10:00 Potassium Chloride/H20 10 meq in 100 ml IV Q1H 01/31/23 10:10 Add Laboratory Test Routine 01/31/23 14:30 Potassium Chloride/H20 10 meq in 100 ml IV Q1H 02/01/23 06:03 Neutropenic precautions ONGOING 02/01/23 06:45 Basic Metabolic Panel Routine Complete Blood Count no Diff Routine Magnesium Routine 02/01/23 08:00 Vital Signs, Orthostatic ONCE 02/01/23 08:10 Potassium Chloride ER [Klor-con] 40 meq PO ONCE ONE 02/01/23 08:15 Potassium Chloride/H20 10 meq in 100 ml IV Q1H 02/01/23 13:17 BMP [Basic Metabolic Panel] Routine 02/01/23 15:13 Heparin Sodium,Porcine Flush 50 units 0.9 % Sodium Chloride Flush [NS Flush] 5 ml IVFLUSH ONCE Laboratory Last Values WBC 3.0 X10*3/uL (4.8-10.8) L 02/01/23 06:45 RBC 3.28 X10*6/uL (4.20-5.50) L 02/01/23 06:45 Hgb 9.2 g/dl (12.0-16.0) L D 02/01/23 06:45 Hct 26.8 % (37.0-47.0) L 02/01/23 06:45 MCV 81.7 fL (80.0-98.0) 02/01/23 06:45 MCH 28.0 pg (27.0-33.0) 02/01/23 06:45 MCHC 34.3 g/dl (31.0-35.0) 02/01/23 06:45 RDW 17.0 % (11.0-16.0) H 02/01/23 06:45 Plt Count 113 X10*3/uL (160-400) L 02/01/23 06:45 MPV 11.8 fL (9.4-12.3) 02/01/23 06:45 Immature Gran % (Auto) Cancelled 01/29/23 09:44 Neut % (Auto) Cancelled 01/29/23 09:44 Lymph % (Auto) Cancelled 01/29/23 09:44 [place] % (Auto) Cancelled 01/29/23 09:44 Eos % (Auto) Cancelled 01/29/23 09:44 Baso % (Auto) Cancelled 01/29/23 09:44 Lymph # (Auto) Cancelled 01/29/23 09:44 [place] # (Auto) Cancelled 01/29/23 09:44 Eos # (Auto) Cancelled 01/29/23 09:44 Baso # (Auto) Cancelled 01/29/23 09:44 Abs Immat Gran (auto) Cancelled 01/29/23 09:44 Absolute Neuts (auto) Cancelled 01/29/23 09:44 Absolute Nucleated RBC 0.000 X10*3/uL (0.0-0.012) 02/01/23 06:45 Nucleated RBC % (auto) 0.0 /100WBC (0.0-0.2) 02/01/23 06:45 Neutrophils % (Manual) 71 % (45-73) 01/29/23 09:44 Band Neutrophils % 3 % (3-5) 01/29/23 09:44 Lymphocytes % (Manual) 16 % (20-40) L 01/29/23 09:44 Monocytes % (Manual) 1 % (2-11) L 01/29/23 09:44 Eosinophils % (Manual) 9 % (0-4) H 01/29/23 09:44 Abs Neuts (Manual) 3.3 X10*3/uL (2.0-8.3) 01/29/23 09:44 Lymphocytes # (Manual) 0.7 X10*3/uL (1.2-4.9) L 01/29/23 09:44 Eosinophils # (Manual) 0.4 X10*3/uL (0.0-0.4) 01/29/23 09:44 Toxic Vacuolation PRESENT 01/29/23 09:44 Platelet Estimate NORMAL (NORMAL) 01/29/23 09:44 Plt Morphology Comment NORMAL 01/29/23 09:44 RBC Morphology NOTED 01/29/23 09:44 Hypochromasia 1+ (5-14) /OIF 01/29/23 09:44 Ovalocytes 1+ (5-14) /OIF 01/29/23 09:44 Magdiel Cells 1+ (0-2) /OIF 01/29/23 09:44 Smear Path Review 01/31/23 06:44 Sodium 142 mmol/L (135-145) 02/01/23 13:17 Potassium 3.5 mmol/L (3.3-5.1) 02/01/23 13:17 Chloride 113 mmol/L (96-108) H 02/01/23 13:17 Carbon Dioxide 21 mmol/L (22-29) L 02/01/23 13:17 Anion Gap 12 (12-20) 02/01/23 13:17 BUN 3 mg/dL (9-16) L 02/01/23 13:17 Creatinine 0.63 mg/dL (0.5-1.4) 02/01/23 13:17 Estim Creat Clear Calc 54.5 02/01/23 13:17 Estimated GFR > 60 02/01/23 13:17 POC Glucose 83 mg/dL (60-115) 01/30/23 00:24 Random Glucose 74 mg/dL (60-115) 02/01/23 13:17 Calcium 7.8 mg/dL (8.4-10.2) L 02/01/23 13:17 Magnesium 1.6 mg/dL (1.6-2.6) 02/01/23 06:45 Total Bilirubin 0.5 mg/dL (0.0-1.0) 01/29/23 09:44 Direct Bilirubin 0.2 mg/dL (0.0-0.5) 01/29/23 09:44 AST 25 U/L (5-31) 01/29/23 09:44 ALT 9 U/L (0-31) 01/29/23 09:44 Alkaline Phosphatase 101 U/L (39-117) 01/29/23 09:44 Troponin I High Sens 7.9 ng/L (<3.5-17.0) 01/29/23 15:25 Total Protein 5.6 g/dL (6.5-8.0) L 01/29/23 09:44 Albumin 3.1 g/dL (3.5-5.0) L 01/29/23 09:44 Lipase 20 U/L (8-78) 01/29/23 09:44 Urine Color Yellow 01/29/23 11:21 Urine Appearance Clear 01/29/23 11:21 Urine pH 5.5 (5.0-9.0) 01/29/23 11:21 Ur Specific [place] 1.010 (1.005-1.025) 01/29/23 11:21 Urine Protein Trace mg/dL (Neg-Trace) 01/29/23 11:21 Urine Glucose (UA) Negative mg/dL (Negative) 01/29/23 11:21 Urine Ketones Negative mg/dL (Negative) 01/29/23 11:21 Urine Blood Negative (Negative) 01/29/23 11:21 Urine Nitrite Negative (Negative) 01/29/23 11:21 Ur Leukocyte Esterase Small (1+) (Negative) H 01/29/23 11:21 Urine RBC 0-2 /HPF (0-2) 01/29/23 11:21 Urine WBC 0-5 /HPF (0-5) 01/29/23 11:21 Ur Squamous Epith Cells 6-10 /HPF (0-2) 01/29/23 11:21 Urine Bacteria None Seen (None Seen) 01/29/23 11:21 Hyaline Casts 3-5 /LPF (0-2) 01/29/23 11:21 Stool Occult Blood POSITIVE (NEGATIVE) 01/29/23 11:21 COVID-19 (JUAN RAMON) Negative (Negative) 01/29/23 08:45 COVID-19 Clin Com See Note 01/29/23 08:45 Influenza Type A (OSMANY) Negative (Negative) 01/29/23 08:46 Influenza Type B (OSMANY) Negative (Negative) 01/29/23 08:46 Influenza A & B Note See Note 01/29/23 08:46 Blood Type O Positive 01/29/23 19:09 Antibody Screen NEGATIVE 01/29/23 19:09 Crossmatch See Detail 01/29/23 19:09 - Imaging Radiologist's impression: ITS Impressions Chest X-Ray 01/29/23 09:50 IMPRESSION: No acute disease. The tip of a right subclavian Port-A-Cath is in the proximal right atrium. Abdomen/Pelvis CT 01/29/23 13:47 IMPRESSION: No evidence of active GI bleed. Abnormal appearance to the stomach, enlarged perigastric lymph nodes, stranding of the fat surrounding the stomach and likely peritoneal disease which appears unchanged from November 2022 exam. Diverticulosis of the colon. No evidence of diverticulitis. Assessment and Plan Patient Active problem list reviewed?: Yes (1) Lymphoma malignant, large cell Status: Acute Assessment and plan: 77-year-old lady with recent diagnosis of diffuse large B-cell lymphoma of the stomach. She underwent staging workup: PET scan from 01/16 revealed: 1. Asymmetric increase tracer avidity is noted with SUV max of 6.4 without evidence of any discrete mass involving the left tonsillar fossa, may represent reactive changes. 2. Significant mural thickening associated with intense FDG avidity involving the fundus and body of the stomach with SUV max of 20.7 consistent with gastric involvement in this patient with diffuse large B-cell lymphoma. Specific note is made of perigastric solid intense FDG avid lymph nodes within the lesser omentum/gastrohepatic ligament region as well as in the region of the common hepatic artery. The dominant lymph node measures 4.2 x 2.1 cm with SUV max of 45.4. 3. Note is also made of intense FDG avidity associated with circumferential mural thickening of the cecum and adjacent proximal ascending colon with SUV max of 11.2, for which direct visualization/colonoscopy is recommended for further clarification. 4. Apparent mild increase tracer avidity throughout the entire axial skeleton, may represent hyperplastic marrow versus bone marrow infiltration or combination thereof. 5. No evidence of any lung parenchymal or liver or splenic involvement. Bone marrow biopsy was: Negative. CSF cytology was: Negative. According to the NCCN guidelines from 09/26, options include R-CHOP x3 followed by ISRT, for non bulky disease:<7.5 cm. Or R-CHOP x6 +/- ISRT, for bulky >7.5 cm. A relatively new regimen is the kadeem-R-CHP, which replaces the anti micro tubule drug Vincristine in R-CHOP with the novel agent Polatuzumab Vedotin. Kadeem is an antibody drug conjugate targeting the B-cell surface marker CD 79 be which is ubiquitously expressed in mature B-cell lymphomas. I have initiated staging workup. Her PET scan for initial staging. Scheduled for next week. A baseline echocardiogram, revealed normal cardiac function. She has had a Port-A-Cath placed on 01/01, to facilitate the chemotherapy. She was started on 1st cycle of chemotherapy with kadeem-R-CHP, regimen on 01/22. She tolerated it reasonably well. She did get the Neulasta to prevent chemotherapy-induced neutropenia. She presented to the ER yesterday, with complaints of acute on chronic epigastric abdominal pain, nausea, poor oral intake, fatigue, weakness, dyspnea with exertion. She has difficulties eating due to gastric mass. She has felt lightheaded. Abdominal CT in the ER does not show any evidence of acute GI bleed, chest x- ray without consolidation or effusion. Orthostatic blood pressure readings noted. Database: Hemoglobin 7.4, hematocrit 22.8 with no obvious signs of bleeding. She was given 3 L of IV fluids in the ER. A low blood count is most likely related to the recent chemotherapy. PLAN: Would give blood transfusion with a hemoglobin below 8. In general, Procrit is contraindicated in the setting of malignancy. Continue to focus on nutrition. Nutritional supplements. Will continue IV fluids and other supportive care as you are doing. Thank you for this consult, I will follow along with you, Cc: Alana Reaves. - Time Spent With Patient Time Spent with Patient (in minutes): 30
--- NOTE | 2023-03-02 12:22 | PM.HEMONCPN ---
Medical Summary - Medical Summary Date of Service: 03/02/23 Chief complaint: Follow-up for: Gastric lymphoma. Primary Care Provider: Mis Gutierrez MD Medical Summary: DIAGNOSIS: GASTRIC LYMPHOMA. STATUS POST 2 CYCLE OF CHEMO. Interval History Interval history: Delmy Ann is a 77 year old lady, she presented to the ED, with epigastric pain, nausea, fatigue, dyspnea and dizziness. She is actually feeling better. Still has some early satiety and bloating. No fever nor chills. Energy level is better. INTERIM HISTORY: She was recently diagnosed with large B-cell lymphoma of stomach origin. She received her 1st cycle of chemotherapy on 01/22. She was admitted to the hospital between 01/29 and 02/01. Discharge summary: 77-year-old woman with history of large B-cell lymphoma of stomach origin currently on high-dose chemotherapy. She presented to the ER with complaints of acute on chronic epigastric abdominal pain, nausea, fatigue, weakness, dyspnea with exertion and lightheadedness with poor oral intake over the last week. She has difficulties eating due to gastric mass. She was found to have orthostatic hypotension and anemia. Abdominal CT in the ER does not show any evidence of acute GI bleed, chest x-ray without consolidation or effusion. Orthostatic blood pressure readings noted. Hemoglobin 7.4, hematocrit 22.8 with no obvious signs of bleeding. She was given 3 L of IV fluids in the ER. She was admitted for further management and treatment of acute on chronic non blood loss anemia secondary to chemotherapy. Anemia, acute/chronic, non-blood loss, due to chemotherapy. Orthostatic hypotension - transfused 1u pRBCs 01/29 and another 1u on 01/31 with appropriate response in Hb >8; orthostasis resolved Thrombocytopenia, due to chemotherapy - mild, >100 hypoK:- repleted IV/PO mod pr-vivek malnutrition:- treated with Ensure diffuse large B-cell gastric lymphoma;- will follow up with [facility] Heme/Onc as scheduled PRESENTING HISTORY: She presented to the ER with complaints of acute on chronic epigastric abdominal pain, nausea, fatigue, weakness, dyspnea with exertion and lightheadedness with poor oral intake over the last week. She has difficulties eating due to gastric mass. Abdominal CT in the ER does not show any evidence of acute GI bleed, chest x-ray without consolidation or effusion. Orthostatic blood pressure readings noted. Database: Hemoglobin 7.4, hematocrit 22.8 with no obvious signs of bleeding. She was given 3 L of IV fluids in the ER. She was admitted for further management and treatment of acute on chronic non-blood loss anemia secondary to chemotherapy. Review of Systems Review of Systems: Denies any recent fever chills or decrease in appetite respiratory denies any shortness of breath coverage production cardiovascular denies chest pain gastrointestinal see HPI genitourinary denies any dysuria frequency or hematuria musculoskeletal denies any joint pain or swelling neuropsych denies any weakness or seizures all other systems reviewed are negative [facility] History: 1. Diffuse large B-cell lymphoma: She was originally seen on 11/28 when she was in house. Narrative: She presented to [facility] with abdominal pain of 3 months duration. This was associated with weight loss 30-40 lbs, early satiety sweats. She is able to keep food down but feels bloated. She complains of constipation, using stool softeners. Denies nausea, but had 1 episode of watery vomiting. She was seen in ED in September of 2022, at that time CT abdomen and pelvis was unremarkable. Now CT abdomen and pelvis showed abnormality in stomach suspicious for primary gastric malignancy with associated metastatic adenopathy differential includes gastric lymphoma. In the emergency room pt treated with IV morphine. She denies urinary burning or frequency but does complain of nocturia. Urine analysis is positive for 4+ bacteria, and pyuria and leukocyte esterase. She was noted to have a drop in hematocrit since last September, electrolytes are stable, low albumin. CT scan of the abdomen pelvis from 11/25: Abnormal appearance of the stomach with diffuse wall thickening and enhancement, most prominent along the greater curvature of the stomach. There is associated perigastric fat stranding and edema and prominent mesenteric hyperemia. There are multiple large masses seen in the lesser sac, including 2 of the masses appearing completely solid and one of the masses appearing centrally hypoenhancing. Findings are suspicious for a primary gastric malignancy with associated metastatic adenopathy. Other entities, such as gastric lymphoma could be considered in the differential. Further assessment with endoscopy and biopsy is recommended. She underwent an upper endoscopy yesterday by Dr. Caldwell. Findings: Her large polypoidal mass with central ulceration in the gastric body along the greater curvature extending from 36-58 cm and covering 75% of the gastric circumferential. Diffuse gastric erythema. Biopsies taken from antrum to check for H pylori. Pathology revealed: Diffuse large B cell lymphoma, nongerminal center type. Fish studies: Negative for BCL2, BCL6 and c-myc. Anemia Abnormal CT of the abdomen Stomach cancer Kidney disease Asthma Surgical History: Tubal ligation status History of bladder surgery History of cholecystectomy. Social History: Household Members: Family Housing: Apartment Do you presently have visiting nurse or other home services: No Patient Tobacco Use Status: Never used Tobacco Advance Directives: No Advance Directives Information Provided: Yes Advance Directives Date on File: 02/12/20 service: No 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al status: disabled 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: r handed Review of Systems - Constitutional Reports no additional constitutional complaints, Reports fatigue, Denies fever(s), Reports lack of energy, Reports malaise, Denies night sweats, Reports poor appetite, Reports weight loss - Eyes Reports no additional eye complaints - ENT Reports no additional ear, nose, mouth, and throat complaints - Cardiovascular Reports no additional cardiovascular complaints - Respiratory Reports no additional respiratory complaints - Gastrointestinal Reports no additional gastrointestinal complaints - Genitourinary Reports no additional female genitourinary complaints - Musculoskeletal Reports no additional musculoskeletal complaints - Integumentary/Breasts Skin/Breast: Reports no additional skin complaints - Neurologic Reports no additional neurologic complaints - Psychiatric Reports no additional psychiatric complaints - Endocrine Reports no additional endocrine complaints - Hematologic/Lymphatic Reports no additional hematologic/lymphatic complaints - Allergic/Immunologic Reports no additional allergic/immunologic complaints PMFSH Medical History: Medical History (Last Reviewed 03/02/23 @ 11:15 by Eloy Joseph) Abnormal CT of the abdomen Anemia Asthma Kidney disease Stomach cancer Functional capacity: wheelchair bound Patient : No Surgical History: Surgical History (Last Reviewed 02/23/23 @ 21:27 by Michael Staton MD) History of bladder surgery History of cholecystectomy Tubal ligation status Social History: Social History (Last Reviewed 02/23/23 @ 21:27 by Michael Staton MD) Living Situation History: Household Members: Children Housing: Apartment Do you presently have visiting nurse or other home services: No Tobacco History: Patient Tobacco Use Status: Never used Tobacco e-Cigarette/Vaping Use: Never Used Advance Directives: Advance Directives Date on File: 02/12/20 Occupation Assessmet: service: No 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al status: disabled 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: r handed Oncology Screenings - ECOG Performance Status ECOG Performance Status: 2 Home Medications and Allergies Home Medications Medication Instructions Recorded Confirmed Type albuterol sulfate 90 mcg/actuation 2 puff inhalation Q4H PRN 10/10/21 02/23/23 History aerosol inhaler Shortness Of Breath Or Wheezing atorvastatin 80 mg tablet 80 mg PO QPM 10/10/21 02/23/23 History cholecalciferol (vitamin D3) 125 125 mcg PO DAILY 10/10/21 02/23/23 History mcg (5,000 unit) tablet loratadine 10 mg tablet 10 mg PO DAILY PRN Allergic 10/10/21 02/23/23 History Symptoms omeprazole 20 mg capsule,delayed 20 mg PO DAILY 10/10/21 02/23/23 History release fluticasone propionate 50 1 spray intranasal BID PRN Allergy 11/25/22 02/23/23 History mcg/actuation nasal Symptoms spray,suspension albuterol sulfate 2.5 mg/3 mL 2.5 mg inhalation Q4H PRN Wheezing 01/29/23 02/23/23 History (0.083 %) solution for nebulization dexamethasone 4 mg tablet 4 mg PO BID PRN day 2 or 3 of chemo 01/29/23 02/23/23 History prednisone 20 mg tablet 60 mg PO DAILY PRN day 1-5 of chemo 01/29/23 02/23/23 History sulfamethoxazole 800 1 tab PO DAILY 02/23/23 02/23/23 History mg-trimethoprim 160 mg tablet Allergies Allergy/AdvReac Type Severity Reaction Status Date / Time codeine [CODEINE] Allergy Intermediate RASH Verified 01/10/23 11:02 ibuprofen [From MOTRIN] Allergy Intermediate RASH Verified 01/10/23 11:02 Penicillins [PENICILLINS] Allergy Intermediate RASH Verified 01/10/23 11:02 motrin Allergy Unknown rash, Uncoded 01/10/23 11:02 swelling PCN Allergy Unknown rash, Uncoded 01/10/23 11:02 swelling Exam Vital signs: Vital Signs Temp 97.9 F 02/01/23 11:39 Pulse 72 02/01/23 11:39 Resp 18 02/01/23 11:39 BP 90/53 L 02/01/23 11:39 Pulse Ox 96 02/01/23 11:39 O2 Del Method Room Air 02/01/23 11:39 Weight 48.9 kg BMI result Body Mass Index 21.1 - Constitutional Present: no acute distress - Routine HEENT Exam Head: Present: normal inspection Eye: Present: normal appearance ENT: Present: mucous membranes moist - Routine Neck Exam Present: full ROM - Routine Respiratory Exam Present: CTAB - Routine Cardiovascular Exam Cardiovascular: Present: RRR, S1, S2 - Routine Abdominal Exam Present: soft, nontender - Routine Rectal Exam Patient deferred: digital exam - Routine Extremities Exam Present: nontender - Routine Back/Spine/Pelvis Exam Back/Spine: Present: full ROM - Routine Skin Exam Present: intact - Routine Neurological Exam Present: alert, oriented X3 - Routine Psychiatric Exam Present: normal affect Data - Labs CBC & Chem 7: 02/01/23 06:45 02/01/23 13:17 - Imaging Radiologist's impression: ITS Impressions Chest X-Ray 01/29/23 09:50 IMPRESSION: No acute disease. The tip of a right subclavian Port-A-Cath is in the proximal right atrium. Abdomen/Pelvis CT 01/29/23 13:47 IMPRESSION: No evidence of active GI bleed. Abnormal appearance to the stomach, enlarged perigastric lymph nodes, stranding of the fat surrounding the stomach and likely peritoneal disease which appears unchanged from November 2022 exam. Diverticulosis of the colon. No evidence of diverticulitis. Assessment and Plan Patient Active problem list reviewed?: Yes (1) Lymphoma malignant, large cell Status: Acute Assessment and plan: 77-year-old lady with recent diagnosis of diffuse large B-cell lymphoma of the stomach. She underwent staging workup: PET scan from 01/16 revealed: 1. Asymmetric increase tracer avidity is noted with SUV max of 6.4 without evidence of any discrete mass involving the left tonsillar fossa, may represent reactive changes. 2. Significant mural thickening associated with intense FDG avidity involving the fundus and body of the stomach with SUV max of 20.7 consistent with gastric involvement in this patient with diffuse large B-cell lymphoma. Specific note is made of perigastric solid intense FDG avid lymph nodes within the lesser omentum/gastrohepatic ligament region as well as in the region of the common hepatic artery. The dominant lymph node measures 4.2 x 2.1 cm with SUV max of 45.4. 3. Note is also made of intense FDG avidity associated with circumferential mural thickening of the cecum and adjacent proximal ascending colon with SUV max of 11.2, for which direct visualization/colonoscopy is recommended for further clarification. 4. Apparent mild increase tracer avidity throughout the entire axial skeleton, may represent hyperplastic marrow versus bone marrow infiltration or combination thereof. 5. No evidence of any lung parenchymal or liver or splenic involvement. Bone marrow biopsy was: Negative. CSF cytology was: Negative. According to the NCCN guidelines from 09/26, options include R-CHOP x3 followed by ISRT, for non bulky disease:<7.5 cm. Or R-CHOP x6 +/- ISRT, for bulky >7.5 cm. A relatively new regimen is the kadeem-R-CHP, which replaces the anti micro tubule drug Vincristine in R-CHOP with the novel agent Polatuzumab Vedotin. Kadeem is an antibody drug conjugate targeting the B-cell surface marker CD [id number] be which is ubiquitously expressed in mature B-cell lymphomas. I have initiated staging workup. Her PET scan for initial staging. Scheduled for next week. A baseline echocardiogram, revealed normal cardiac function. She has had a Port-A-Cath placed on 01/01, to facilitate the chemotherapy. She was started on 1st cycle of chemotherapy with kadeem-R-CHP, regimen on 01/22. She tolerated it reasonably well. She did get the Neulasta to prevent chemotherapy-induced neutropenia. She presented to the ER yesterday, with complaints of acute on chronic epigastric abdominal pain, nausea, poor oral intake, fatigue, weakness, dyspnea with exertion. She has difficulties eating due to gastric mass. She has felt lightheaded. Abdominal CT in the ER does not show any evidence of acute GI bleed, chest x-ray without consolidation or effusion. Orthostatic blood pressure readings noted. Database: Hemoglobin 7.4, hematocrit 22.8 with no obvious signs of bleeding. She was given 3 L of IV fluids in the ER. Her low blood count is most likely related to the recent chemotherapy. Database 03/02: CBC: WBC 9.5, HGB 8.5, HCT 24.8, PLT 153. BUN 4, DRUG ENFORCEMENT AGENT 0.5. Ca L7 0.6. A lb 3.2. LDH: 145. She has received IV hydration and transfusions during her stay in the hospital. PLAN: She is actually going home later today. She will return next week for her next cycle of chemotherapy. Her PET scan had lighted up in the cecum/right colon area. An appointment has been set up with GI for next Sunday. Meanwhile she will continue to focus on nutrition. Take Nutritional supplements. Thank you for this consult, I will follow along with you, Cc: Stefany. - Time Spent With Patient Time Spent with Patient (in minutes): 30
== END 2023-02-01 15:41 | disposition home or self-care (01) | DRG 809 ==
LOC: HO.ED 16:09 → HO.EDOVER 17:04 → HO.IMC 20:22
PROVIDERS: Internal Medicine Medical Oncology; Physician Assistant; Admitting Provider Nurse Practitioner Acute Care; Emergency Provider Emergency Medicine; PCP Family Medicine; Visit Provider Family Medicine
DX: D61.810 Antineoplastic chemotherapy induced pancytopenia (principal); C83.33 Diffuse large B-cell lymphoma, intra-abdominal lymph nodes; E44.0 Moderate protein-calorie malnutrition; Z68.1 Body mass index [BMI] 19.9 or less, adult; E86.1 Hypovolemia; E87.6 Hypokalemia; G89.3 Neoplasm related pain (acute) (chronic); T45.1X5A Adverse effect of antineoplastic and immunosuppressive drugs, initial encounter; K59.00 Constipation, unspecified; I95.1 Orthostatic hypotension; J45.909 Unspecified asthma, uncomplicated; Z20.822 Contact with and (suspected) exposure to COVID-19; Z79.899 Other long term (current) drug therapy
CPT/HCPCS: 36415; 71045; 74178; 80048; 80076; 81001; 82272; 82947; 83690; 83735; 84484; 85007; 85025; 85027; 86850; 86900; 86901; 86923; 87086; 87502; 87635; 94640; 97162; 99285; J1642; P9016; Q9967

== ENCOUNTER → 2023-01-29 16:38 | Outpatient (BNV) | payer OTHER, SELFPAY | PROVIDERS: Admitting Provider Nurse Practitioner Acute Care; Emergency Provider Emergency Medicine; PCP Family Medicine; Visit Provider Internal Medicine Medical Oncology | DX: C85.80 Other specified types of non-Hodgkin lymphoma, unspecified site (principal); D69.59 Other secondary thrombocytopenia; D64.81 Anemia due to antineoplastic chemotherapy | CPT/HCPCS: 99222; 99232 ==

== ENCOUNTER → 2023-01-29 16:38 | Outpatient (BNV) | payer OTHER, SELFPAY | PROVIDERS: Admitting Provider Nurse Practitioner Acute Care; Emergency Provider Emergency Medicine; PCP Family Medicine; Visit Provider Nurse Practitioner Acute Care | DX: I95.1 Orthostatic hypotension (principal); C85.80 Other specified types of non-Hodgkin lymphoma, unspecified site; C85.99 Non-Hodgkin lymphoma, unspecified, extranodal and solid organ sites; E44.0 Moderate protein-calorie malnutrition; D64.81 Anemia due to antineoplastic chemotherapy; T45.1X5A Adverse effect of antineoplastic and immunosuppressive drugs, initial encounter; D69.59 Other secondary thrombocytopenia; E87.6 Hypokalemia; R63.8 Other symptoms and signs concerning food and fluid intake | CPT/HCPCS: 99223; 99232; 99239; G0180 ==

== ENCOUNTER 2023-02-23 14:53 | Inpatient (IN) | payer OTHER, SELFPAY ==
[2023-02-23] VITALS (8 sets, daily range): BP systolic 67–114; BP diastolic 38–64; PULSE 62–105; RESP 14–18; TEMP 36.3–37.2; O2SAT 95–98; BMI 19.8
--- NOTE | ~2023-02-23 | XR_ITS ---
EXAMINATION: XR CHEST CLINICAL INFORMATION: Weakness. COMPARISON: Chest radiograph 01/29/2023. TECHNIQUE: Frontal view of the chest was obtained. FINDINGS: CT compatible right-sided chest port tip terminates at the level of the cavoatrial junction. Normal appearance of the cardiomediastinal silhouette. No focal airspace opacity, pleural effusion or pneumothorax. No acute osseous findings. Visualized upper abdomen is within normal limits. XR/XR chest 1V IMPRESSION: No acute cardiopulmonary findings.
--- NOTE | ~2023-02-23 | CT_ITS ---
EXAMINATION: CT HEAD WITHOUT CONTRAST CT CERVICAL SPINE WITHOUT CONTRAST CLINICAL INFORMATION: Syncope. Head strike. COMPARISON: None TECHNIQUE: CT of the head and cervical spine were performed without intravenous contrast. Multiplanar reformats were rendered and reviewed. This CT examination was performed using dose optimization techniques as appropriate, variously including the following: *Automated exposure control *Adjustment of mA and/or kV according to patient size (this includes techniques or standardized protocols for targeted exams where dose is matched to indication/reason for exam; i.e. extremities or head) *Use of iterative reconstruction technique DLP: 753 mGy-cm. FINDINGS: CT head: There is subgaleal hematoma about the left parietal scalp. No calvarial fracture is seen. The extracranial structures are otherwise within normal limits allowing for TMJ arthrosis. There is no intracranial hemorrhage, extra-axial collection, mass effect, or territorial infarction. The ventricles are normal in size without hydrocephalus. A mild degree of brain parenchymal volume loss is noted. CT cervical spine: The cervical vertebral bodies maintain normal heights and alignment. There is mild ossification the posterior longitudinal ligament from C2 through C5 most conspicuous at the C4 and C5 levels. The craniovertebral junction appears intact. No fracture is seen. The facet joints are normally aligned. There is chronic osseous fragmentation adjacent to the right lateral mass of C7 which appears related to remote trauma. There is no high-grade narrowing of the spinal canal. No high-grade neural foraminal stenosis is seen. The lung apices are clear. There is a right chest wall [id number] in place. No enlarged cervical chain lymph nodes are seen. CT/CT head/brain wo IV con IMPRESSION: CT HEAD: No acute intracranial abnormality. Subgaleal hematoma about the left parietal scalp. No calvarial fracture. CT CERVICAL SPINE: No cervical spine fracture or traumatic malalignment.
--- NOTE | ~2023-02-23 | CT_ITS ---
EXAMINATION: CT HEAD WITHOUT CONTRAST CT CERVICAL SPINE WITHOUT CONTRAST CLINICAL INFORMATION: Syncope. Head strike. COMPARISON: None TECHNIQUE: CT of the head and cervical spine were performed without intravenous contrast. Multiplanar reformats were rendered and reviewed. This CT examination was performed using dose optimization techniques as appropriate, variously including the following: *Automated exposure control *Adjustment of mA and/or kV according to patient size (this includes techniques or standardized protocols for targeted exams where dose is matched to indication/reason for exam; i.e. extremities or head) *Use of iterative reconstruction technique DLP: 753 mGy-cm. FINDINGS: CT head: There is subgaleal hematoma about the left parietal scalp. No calvarial fracture is seen. The extracranial structures are otherwise within normal limits allowing for TMJ arthrosis. There is no intracranial hemorrhage, extra-axial collection, mass effect, or territorial infarction. The ventricles are normal in size without hydrocephalus. A mild degree of brain parenchymal volume loss is noted. CT cervical spine: The cervical vertebral bodies maintain normal heights and alignment. There is mild ossification the posterior longitudinal ligament from C2 through C5 most conspicuous at the C4 and C5 levels. The craniovertebral junction appears intact. No fracture is seen. The facet joints are normally aligned. There is chronic osseous fragmentation adjacent to the right lateral mass of C7 which appears related to remote trauma. There is no high-grade narrowing of the spinal canal. No high-grade neural foraminal stenosis is seen. The lung apices are clear. There is a right chest wall [id number] in place. No enlarged cervical chain lymph nodes are seen. CT/CT cervical spine wo IV con IMPRESSION: CT HEAD: No acute intracranial abnormality. Subgaleal hematoma about the left parietal scalp. No calvarial fracture. CT CERVICAL SPINE: No cervical spine fracture or traumatic malalignment.
--- NOTE | 2023-02-23 15:13 | ECG_ITS ---
Test Reason : FALL Blood Pressure : / mmHG Vent. Rate : 086 BPM Atrial Rate : 086 BPM P-R Int : 104 ms QRS Dur : 080 ms QT Int : 374 ms P-R-T Axes : -27 032 -64 degrees QTc Int : 447 ms Sinus rhythm with short IA ST & T wave abnormality, consider anterior ischemia Abnormal ECG When compared with ECG of 29-FEB-2020 19:33, Vent. rate has increased BY 31 BPM Nonspecific T wave abnormality, worse in Inferior leads T wave inversion now evident in Anterolateral leads Referred By: Astrid Zambrano Electronically Signed By:HILDA STEWART MD
--- NOTE | 2023-02-23 16:37 | ED.GENADULT ---
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 Becerril,, BPV, kidney disease presents for evaluation after a syncopal episode For the patient and nephew, the patient tried to get up because there was a knock on her door Upon standing she ended up falling backwards hitting the back of her head She does not remember falling She reports that she is on blood thinners but does not know which one. She endorses mild left posterior headache Denies any neck pain, chest pain shortness of breath, abdominal pain Denies any pain to her extremities Currently the patient reports that she feels well No complaints or concerns Related Data Home Medications Medication Instructions Recorded Confirmed albuterol sulfate 90 mcg/actuation 2 puff inhalation Q4H PRN 10/10/21 01/29/23 aerosol inhaler Shortness Of Breath Or Wheezing atorvastatin 80 mg tablet 80 mg PO QPM 10/10/21 01/29/23 cholecalciferol (vitamin D3) 125 125 mcg PO DAILY 10/10/21 01/29/23 mcg (5,000 unit) tablet cyanocobalamin (vitamin B-12) 1,000 mcg PO DAILY 10/10/21 01/29/23 1,000 mcg tablet furosemide 20 mg tablet 20 mg PO DAILY PRN Edema 10/10/21 01/29/23 loratadine 10 mg tablet 10 mg PO DAILY PRN Allergic 10/10/21 01/29/23 Symptoms omeprazole 20 mg capsule,delayed 20 mg PO DAILY 10/10/21 01/29/23 release acetaminophen 325 mg tablet 325 mg PO QID PRN Pain 11/25/22 01/29/23 fluticasone propionate 50 1 spray intranasal BID PRN Allergy 11/25/22 01/29/23 mcg/actuation nasal Symptoms spray,suspension sennosides 8.6 mg tablet (senna) 8.6 - 17.2 mg PO DAILY PRN 11/25/22 01/29/23 Constipation umeclidinium 62.5 mcg/actuation 1 inh inhalation DAILY 11/25/22 01/29/23 blister powder for inhalation (Incruse Ellipta) albuterol sulfate 2.5 mg/3 mL 2.5 mg inhalation Q4H PRN Wheezing 01/29/23 01/29/23 (0.083 %) solution for nebulization bisacodyl 5 mg tablet,delayed 5 mg PO DAILY PRN constipation 01/29/23 01/29/23 release dexamethasone 4 mg tablet 4 mg PO BID PRN day 2 or 3 of chemo 01/29/23 01/29/23 diphenhydramine HCl 25 mg capsule 25 mg PO Q4-6H PRN Itching 01/29/23 01/29/23 prednisone 20 mg tablet 60 mg PO DAILY PRN day 1-5 of chemo 01/29/23 01/29/23 Previous Rx's Medication Instructions Recorded dicyclomine 20 mg tablet 20 mg PO QID PRN abdominal pain 09/30/22 #20 tabs oxycodone 5 mg tablet 5 mg PO Q6H PRN Pain, 11/29/22 Moderate(Pain Scale 4-6) #20 tabs polyethylene glycol 3350 17 gram 17 g PO DAILY PRN constipation #30 02/01/23 oral powder packet ea ondansetron 8 mg disintegrating 8 mg PO Q8H PRN Nausea #30 tabs 02/16/23 tablet Allergies Allergy/AdvReac Type Severity Reaction Status Date / Time codeine [CODEINE] Allergy Intermediate RASH Verified 01/10/23 11:02 ibuprofen [From MOTRIN] Allergy Intermediate RASH Verified 01/10/23 11:02 Penicillins [PENICILLINS] Allergy Intermediate RASH Verified 01/10/23 11:02 motrin Allergy Unknown rash, Uncoded 01/10/23 11:02 swelling PCN Allergy Unknown rash, Uncoded 01/10/23 11:02 swelling Review of Systems Constitutional: Constitutional: Denies body ache(s), Denies chills, Denies fever(s), Denies frequent falls and Denies headache(s) Eyes: Eyes: Denies blurry vision ENT: Denies headache(s) and Denies sore throat Cardiovascular: Cardiovascular: Denies chest pain, Reports syncope and Denies dyspnea Respiratory: Respiratory: Denies cough and Denies dyspnea Gastrointestinal: Gastrointestinal: Denies abdominal pain, Denies nausea and Denies vomiting Genitourinary: Genitourinary: Denies dysuria Musculoskeletal: Musculoskeletal: Denies back pain Integumentary/Breasts: Skin/Breast: Denies rash Neurologic: Reports syncope, Denies frequent falls and Denies headache(s) [facility] Past Medical History Medical History Anemia Abnormal CT of the abdomen Stomach cancer Kidney disease Asthma Surgical History Tubal ligation status History of bladder surgery History of cholecystectomy Social History Social History Household Members: Family Housing: Apartment Do you presently have visiting nurse or other home services: No Alcohol intake: never Patient Tobacco Use Status: Never used Tobacco Advance Directives: Yes Advance Directives on File: Yes Advance Directives Date on File: 02/12/20 service: No 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al status: disabled 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: r handed Physical Exam ED Vital Signs: Vital Signs - 24 hr 02/23/23 15:41 02/23/23 17:38 02/23/23 19:41 Temperature 99 F 98.0 F Pulse Rate 88 88 62 Respiratory Rate 18 16 Blood Pressure 114/62 86/55 L 86/45 L Pulse Oximetry 98 98 Oxygen Delivery Method Room Air Room Air 02/23/23 19:41 02/23/23 19:43 02/23/23 19:47 Temperature 97.4 F Pulse Rate 86 92 98 Respiratory Rate 16 Blood Pressure 77/56 L 67/38 L 84/53 L Pulse Oximetry 97 Oxygen Delivery Method Room Air BMI result Body Mass Index 19.8 Const General: comfortable, no acute distress, alert and awake Nutritional Appearance: well nourished Orientation/consciousness: patient oriented x3 HENMT Throat: Yes posterior oropharynx normal Eyes Eyelids: Yes eyelids normal Conjunctivae: conjunctivae normal Sclerae: sclerae normal Corneas: corneas normal Pupils: Equal, round and reactive pupils present EOM: EOMs intact bilaterally Neck Other: Patient in a hard c-collar Resp Effort & Inspection: normal respiratory effort, able to speak in complete sentences, no audible wheezes and not labored Auscultation: clear to auscultation bilaterally Cardio Rate: regular rate Rhythm: regular rhythm GI Inspection: No distended Palpation (GI): Soft to palpation, not firm, nontender, no guarding and not rigid Skin General skin exam: elasticity normal Neuro General: patient oriented x3 Cranial nerves: Yes CN's II-XII intact bilaterally, Yes Equal, round and reactive pupils present and Yes Bilaterally intact EOM present Cognition (Neuro): normal cognition Extrem Other: Moving all extremities well without any obvious deformities Course Reevaluation(s) Reevaluation #1: Patient's CT scan showed no acute traumatic injuries. Patient C-collar was removed. I re-evaluated her wound, she has a small, 1 cm abrasion to the left posterior scalp. No active bleeding. Patient was found to be hypotensive on re-evaluation, her labs are still pending, I ordered IV fluids. She denies feeling dizzy while lying supine Time: 17:45 Reevaluation #2: Patient found to be anemic with a hemoglobin of 8.0 hematocrit 24.0. This represents symptom approximately 3 point drop in her hemoglobin from the last 4 days as her hemoglobin was 10.9 on 02/19/2023. She denies any black or bloody stool within the last week but reports that she did have 1 episode of bloody stool over week ago. Discussed with my attending Dr Clay who recommends no rectal exam at this time given that the patient is neutropenic. The patient was also found to be orthostatic Time: 20:00 Reevaluation #3: Discussed with Dr Becerril who feels it is ok to perform rectal examination for occult stool testing. On exam, patient has some external hemorrhoids but no active bleeding. The stool is light brown. Will be sent to the lab for occult testing Time: 20:47 Medications Administered Discontinued Medications Generic Name Dose Route Start Last Admin Trade Name Freq PRN Reason Stop Dose Admin Sodium Chloride 1,000 mls @ 999 mls/hr 02/23/23 17:45 02/23/23 18:48 Ns IV 02/23/23 18:45 999 mls/hr .Q1H1M YOMAIRA Administration Procedures Procedure Narrative Procedure Narrative: I placed in a 20 gauge mode 7 5 in ultrasound-guided IV in the left upper arm. There was good blood return and a line flushed well. Medical Decision Making Medical Decision Making MDM Narrative: 77-year-old female presents for evaluation of a reported syncopal episode. She stood up and then fell backwards. She does have a history of vertigo and has history of cancer. Will get a broad workup for syncope including EKG, labs, orthostatic, however for the 1st time to clear her C-collar with imaging. With a CT scan of her brain and cervical spine as well chest x-ray denies UA. Currently she denies any pain. She has no tenderness with manipulation of the shoulders, elbows 4 hours, has Kaylene's pain ankles bilaterally. Differential Diagnosis Differential Diagnoses: The differential diagnosis associated with the presentation includes Syncope Orthostasis Mechanical fall Intracranial hemorrhage Calvarial fracture Laceration Cervical fracture Weakness Dehydration Admission/Observation Consideration of admission/observation: Escalation of care including admission/observation considered Lab Data MDM Lab Attestation statement: I reviewed the patient's lab results. Patient is neutropenic with a white count of 2.0, No significant electrolyte abnormalities. 02/23/23 18:27 02/23/23 18:27 Labs: Lab Results 02/23/23 02/23/23 02/23/23 Range/Units 17:50 18:27 19:19 WBC 2.0 L (4.8-10.8) X10*3/uL RBC 2.86 L D (4.20-5.50) X10*6/uL Hgb 8.0 L D (12.0-16.0) g/dl Hct 24.0 L D (37.0-47.0) % MCV 83.9 (80.0-98.0) fL MCH 28.0 (27.0-33.0) pg MCHC 33.3 (31.0-35.0) g/dl RDW 16.6 H (11.0-16.0) % Plt Count 98 L D (160-400) X10*3/uL MPV 11.5 (9.4-12.3) fL Immature Gran % (Auto) Cancelled Neut % (Auto) Cancelled Lymph % (Auto) Cancelled [place] % (Auto) Cancelled Eos % (Auto) Cancelled Baso % (Auto) Cancelled Lymph # (Auto) Cancelled [place] # (Auto) Cancelled Eos # (Auto) Cancelled Baso # (Auto) Cancelled Abs Immat Gran (auto) Cancelled Absolute Neuts (auto) Cancelled Absolute Nucleated RBC 0.000 (0.0-0.012) X10*3/uL Nucleated RBC % (auto) 0.0 (0.0-0.2) /100WBC Neutrophils % (Manual) 72 (45-73) % Band Neutrophils % 8 H (3-5) % Lymphocytes % (Manual) 14 L (20-40) % Monocytes % (Manual) 5 (2-11) % Metamyelocytes % 1 % Abs Neuts (Manual) 1.6 L (2.0-8.3) X10*3/uL Lymphocytes # (Manual) 0.3 L (1.2-4.9) X10*3/uL Monocytes # (Manual) 0.1 (0.1-1.2) X10*3/uL Dohle Bodies PRESENT Platelet Estimate DECREASED (NORMAL) Plt Morphology Comment NORMAL RBC Morphology NORMAL Hypochromasia 1+ (5-14) /OIF [place] Cells 1+ (0-2) /OIF Schistocytes 1+ (0-2) /OIF PT 12.0 (11.1-13.3) SEC INR 1.0 (0.9-1.1) APTT 26.9 (26.0-36.4) SEC Sodium 139 (135-145) mmol/L Potassium 3.7 (3.3-5.1) mmol/L Chloride 102 (96-108) mmol/L Carbon Dioxide 27 (22-29) mmol/L Anion Gap 14 (12-20) BUN 10 (9-16) mg/dL Creatinine 0.74 (0.5-1.4) mg/dL Estim Creat Clear Calc 46.4 Estimated GFR > 60 Random Glucose 73 (60-115) mg/dL Lactic Acid 0.9 (0.5-2.0) mmol/L Calcium 8.9 (8.4-10.2) mg/dL Magnesium 2.1 (1.6-2.6) mg/dL Total Bilirubin 0.4 (0.0-1.0) mg/dL AST 11 (5-31) U/L ALT 8 (0-31) U/L Alkaline Phosphatase 75 (39-117) U/L Troponin I High Sens 7.3 (<3.5-17.0) ng/L Total Protein 5.6 L (6.5-8.0) g/dL Albumin 3.2 L (3.5-5.0) g/dL Urine Color Yellow Urine Appearance Clear Urine pH 6.5 (5.0-9.0) Ur Specific [place] 1.010 (1.005-1.025) Urine Protein Trace (Neg-Trace) mg/dL Urine Glucose (UA) Negative (Negative) mg/dL Urine Ketones 15 (Negative) mg/dL Urine Blood Negative (Negative) Urine Nitrite Negative (Negative) Ur Leukocyte Esterase Negative (Negative) Influenza Type A (PCR) NEGATIVE (Negative) Influenza Type B (PCR) NEGATIVE (Negative) RSV RNA Qual (PCR) NEGATIVE (Negative) SARS-CoV-2 RNA (RT-PCR) NEGATIVE (Negative) Independent Interpretation I performed an independent interpretation of an: EKG and Plain X-Ray Interpretation: Sinus rhythm rate of 86 beats per minute. No ST segment elevation Radiology Impression Discussion of test interpretation with radiology: I have reviewed the radiologist's reading. Radiologist Impression: No acute cardiopulmonary findings Discharge Plan Discharge Clinical Impression: Orthostasis, Anemia Patient Disposition: Admitted As Inpatient
[2023-02-23 18:41] LABS: Mean Platelet Volume 11.5 fL (9.4-12.3); PLT CLUMP 1; Red Blood Count 2.86 X10*6/uL (4.20-5.50)
[2023-02-23 18:42] LABS: Partial Thromboplastin Time 26.9 SEC (26.0-36.4)
[2023-02-23 18:43] LABS: Mean Corpuscular HGB Conc 33.3 g/dl (31.0-35.0); Mean Corpuscular Volume 83.9 fL (80.0-98.0); Red Cell Distribution Width 16.6 % (11.0-16.0)
[2023-02-23 18:46] LABS: Lactic Acid 0.9 mmol/L (0.5-2.0)
[2023-02-23] MEDS: 0.9 % Sodium Chloride 1,000 ML 999 ML IV (18:48)
[2023-02-23 18:49] LABS: Alanine Aminotransferase 8 U/L (0-31); Albumin Level 3.2 g/dL (3.5-5.0); Alkaline Phosphatase 75 U/L (39-117); Anion Gap 14 (12-20); Aspartate Amino Transferase 11 U/L (5-31); Bilirubin Total 0.4 mg/dL (0.0-1.0); Blood Urea Nitrogen 10 mg/dL (9-16); Calcium 8.9 mg/dL (8.4-10.2); Carbon Dioxide 27 mmol/L (22-29); Chloride 102 mmol/L (96-108); Creatinine Clr Calc Pharmacy 46.4; Estimated Glomerular Filt Rate > 60; Glucose Random 73 mg/dL (60-115); Magnesium 2.1 mg/dL (1.6-2.6); Potassium 3.7 mmol/L (3.3-5.1); Sodium 139 mmol/L (135-145); Total Protein 5.6 g/dL (6.5-8.0)
[2023-02-23 18:52] LABS: WBC ABN SCTR FOR CBC 1
[2023-02-23 18:56] LABS: Troponin-I High Sensitivity 7.3 ng/L (<3.5-17.0)
[2023-02-23 19:10] LABS: Influenza A PCR NEGATIVE (Negative); Influenza B PCR NEGATIVE (Negative); Resp Syncy Virus RNA Qual PCR NEGATIVE (Negative); SARS COV2 PCR INHOUSE NEGATIVE (Negative)
--- NOTE | 2023-02-23 19:17 | MHC.EDTECH ---
PATIENT WAS ASSISTED TO BATHROOM ,VOID ,BACK TO BED ,URINE SAMPLE COLLECTED AND SENT TO LAB .
[2023-02-23 19:28] LABS: Appearance Urine Clear; Color Urine Yellow; Glucose Urine UA Negative (Negative); Leukocyte Esterase Urine Negative (Negative); Nitrite Urine Negative (Negative); PH 6.5 (5.0-9.0); Urine Blood Negative (Negative); Urine Ketones 15 mg/dL (Negative); Urine Protein Trace mg/dL (Neg-Trace)
[2023-02-23 20:07] LABS: Band Neutrophils Percent 8 % (3-5); Lymphocytes Absolute Manual 0.3 X10*3/uL (1.2-4.9); Lymphocytes Percent Manual 14 % (20-40); Metamyelocytes Percent 1 %; Monocytes Absolute Manual 0.1 X10*3/uL (0.1-1.2); Monocytes Percent Manual 5 % (2-11); Neutrophils Absolute Manual 1.6 X10*3/uL (2.0-8.3); Neutrophils Percent Manual 72 % (45-73)
[2023-02-23 20:10] LABS: Burr Cells 1+ (0-2) /OIF; RBC Morphology NORMAL; Schistocytes 1+ (0-2) /OIF
[2023-02-23 20:11] LABS: Dohle Bodies PRESENT; Hypochromasia 1+ (5-14) /OIF
[2023-02-23 20:12] LABS: Platelet Estimate DECREASED (NORMAL); Platelet Morphology Comment NORMAL
[2023-02-23 20:18] LABS: Platelet Count 98 X10*3/uL (160-400)
--- NOTE | 2023-02-23 21:04 | P.HPHOSP_ITS ---
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 Patient states she tried to get up and got disease/lightheadedness and fell. She was passed out for about a minute. No chest discomfort or palpitations prior to the fall. No rhythmic jerking movement of extremities. She did hit her head. Her last chemotherapy session for gastric lymphoma was earlier in the month. No fever, chills, chest discomfort, palpitations, shortness of breath, abdominal pain, changes in urinary or bowel habits. Patient denies vomiting or diarrhea. In the emergency department, orthostatic vital signs noted to be positive Review of Systems 2 Constitutional: Constitutional: Reports fatigue, Reports lethargy and Reports weakness ENT: Reports dizziness Cardiovascular: Cardiovascular: Reports no additional cardiovascular complaints and Reports syncope Respiratory: Respiratory: Reports no additional respiratory complaints Gastrointestinal: Gastrointestinal: Reports no additional gastrointestinal complaints Genitourinary: Genitourinary: Reports no additional female genitourinary complaints Neurologic: Reports dizziness, Reports syncope and Reports weakness Endocrine: Endocrine: Reports fatigue [facility] Medical History Anemia Abnormal CT of the abdomen Stomach cancer Kidney disease Asthma Pertinent family history: No family history of early CAD Surgical History Tubal ligation status History of bladder surgery History of cholecystectomy Social History Household Members: Family Housing: Apartment Do you presently have visiting nurse or other home services: No Alcohol intake: never Patient Tobacco Use Status: Never used Tobacco Advance Directives: Yes Advance Directives on File: Yes Advance Directives Date on File: 02/12/20 service: No 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al status: disabled 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: r handed Meds Allergies Allergy/AdvReac Type Severity Reaction Status Date / Time codeine [CODEINE] Allergy Intermediate RASH Verified 01/10/23 11:02 ibuprofen [From MOTRIN] Allergy Intermediate RASH Verified 01/10/23 11:02 Penicillins [PENICILLINS] Allergy Intermediate RASH Verified 01/10/23 11:02 motrin Allergy Unknown rash, Uncoded 01/10/23 11:02 swelling PCN Allergy Unknown rash, Uncoded 01/10/23 11:02 swelling Home Medications Medication Instructions Recorded Confirmed Last Taken Type albuterol sulfate 90 mcg/actuation 2 puff inhalation Q4H PRN 10/10/21 01/29/23 Unknown History aerosol inhaler Shortness Of Breath Or Wheezing atorvastatin 80 mg tablet 80 mg PO QPM 10/10/21 01/29/23 Unknown History cholecalciferol (vitamin D3) 125 125 mcg PO DAILY 10/10/21 01/29/23 Unknown History mcg (5,000 unit) tablet cyanocobalamin (vitamin B-12) 1,000 mcg PO DAILY 10/10/21 01/29/23 Unknown History 1,000 mcg tablet furosemide 20 mg tablet 20 mg PO DAILY PRN Edema 10/10/21 01/29/23 Unknown History loratadine 10 mg tablet 10 mg PO DAILY PRN Allergic 10/10/21 01/29/23 Unknown History Symptoms omeprazole 20 mg capsule,delayed 20 mg PO DAILY 10/10/21 01/29/23 01/10/23 History release acetaminophen 325 mg tablet 325 mg PO QID PRN Pain 11/25/22 01/29/23 01/10/23 History fluticasone propionate 50 1 spray intranasal BID PRN Allergy 11/25/22 01/29/23 Unknown History mcg/actuation nasal Symptoms spray,suspension sennosides 8.6 mg tablet (senna) 8.6 - 17.2 mg PO DAILY PRN 11/25/22 01/29/23 Unknown History Constipation umeclidinium 62.5 mcg/actuation 1 inh inhalation DAILY 11/25/22 01/29/23 Unknown History blister powder for inhalation (Incruse Ellipta) albuterol sulfate 2.5 mg/3 mL 2.5 mg inhalation Q4H PRN Wheezing 01/29/23 01/29/23 Unknown History (0.083 %) solution for nebulization bisacodyl 5 mg tablet,delayed 5 mg PO DAILY PRN constipation 01/29/23 01/29/23 Unknown History release dexamethasone 4 mg tablet 4 mg PO BID PRN day 2 or 3 of chemo 01/29/23 01/29/23 Unknown History diphenhydramine HCl 25 mg capsule 25 mg PO Q4-6H PRN Itching 01/29/23 01/29/23 Unknown History prednisone 20 mg tablet 60 mg PO DAILY PRN day 1-5 of chemo 01/29/23 01/29/23 Unknown History Physical Exam 2 Vital Signs and Narrative: Vital Signs: Last Vital Signs Temp 97.4 F 02/23/23 19:47 Pulse 98 02/23/23 19:47 Resp 16 02/23/23 19:47 BP 84/53 L 02/23/23 19:47 Pulse Ox 97 02/23/23 19:47 O2 Del Method Room Air 02/23/23 19:47 BMI result Body Mass Index 19.8 Middle-aged female lying in bed in no distress Neck supple, no JVD Regular rate and rhythm, S1-S2 heard Regular breath sounds bilaterally, no wheezing or crackles appreciated Abdomen soft nontender, no guarding, no rigidity Patient is awake, alert and oriented to self, place, time and person ; no focal motor deficit Psych: Normal mood No pedal edema Results Labs 02/23/23 18:27 02/23/23 18:27 Labs: Laboratory Results - last 24 hr 02/23/23 02/23/23 02/23/23 17:50 18:27 19:19 MCV 83.9 MCH 28.0 MCHC 33.3 RDW 16.6 H Plt Count 98 L D MPV 11.5 Immature Gran % (Auto) Cancelled Neut % (Auto) Cancelled Lymph % (Auto) Cancelled [place] % (Auto) Cancelled Eos % (Auto) Cancelled Baso % (Auto) Cancelled Lymph # (Auto) Cancelled [place] # (Auto) Cancelled Eos # (Auto) Cancelled Baso # (Auto) Cancelled Abs Immat Gran (auto) Cancelled Absolute Neuts (auto) Cancelled Absolute Nucleated RBC 0.000 Nucleated RBC % (auto) 0.0 Neutrophils % (Manual) 72 Band Neutrophils % 8 H Lymphocytes % (Manual) 14 L Monocytes % (Manual) 5 Metamyelocytes % 1 Abs Neuts (Manual) 1.6 L Lymphocytes # (Manual) 0.3 L Monocytes # (Manual) 0.1 Dohle Bodies PRESENT Platelet Estimate DECREASED Plt Morphology Comment NORMAL RBC Morphology NORMAL Hypochromasia 1+ (5-14) [place] Cells 1+ (0-2) Schistocytes 1+ (0-2) PT 12.0 INR 1.0 APTT 26.9 Anion Gap 14 Estim Creat Clear Calc 46.4 Estimated GFR > 60 Random Glucose 73 Lactic Acid 0.9 Calcium 8.9 Magnesium 2.1 Total Bilirubin 0.4 AST 11 ALT 8 Alkaline Phosphatase 75 Total Protein 5.6 L Albumin 3.2 L Urine Color Yellow Urine Appearance Clear Urine pH 6.5 Ur Specific [place] 1.010 Urine Protein Trace Urine Glucose (UA) Negative Urine Ketones 15 Urine Blood Negative Urine Nitrite Negative Ur Leukocyte Esterase Negative Influenza Type A (PCR) NEGATIVE Influenza Type B (PCR) NEGATIVE RSV RNA Qual (PCR) NEGATIVE SARS-CoV-2 RNA (RT-PCR) NEGATIVE Imaging Radiologist's Impressions: Impressions Cervical Spine CT 02/23/23 16:36 IMPRESSION: CT HEAD: No acute intracranial abnormality. Subgaleal hematoma about the left parietal scalp. No calvarial fracture. CT CERVICAL SPINE: No cervical spine fracture or traumatic malalignment. Head CT 02/23/23 16:36 IMPRESSION: CT HEAD: No acute intracranial abnormality. Subgaleal hematoma about the left parietal scalp. No calvarial fracture. CT CERVICAL SPINE: No cervical spine fracture or traumatic malalignment. Chest X-Ray 02/23/23 18:59 IMPRESSION: No acute cardiopulmonary findings. 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 #. Syncope: orthostatic vital signs noted positive in the ER. Resuscitating with IV crystalloids. Repeat orthostatics in am #. Pancytopenia: likely due to chemotherpay. Stool occult blood negative in the ER. Consider GI consult if hemoglobin continues to fall. #. Gastroesophageal reflux disease: On PPI #. Mixed hyperlipidemia: On statin #. Chronic pain with chronic opioid use: Continue oxycodone p.r.n. Med rec pending DVT prophylaxis: Mechanical. Defer Lovenox in the setting of thrombocytopenia Full code. Discussed with patient and family members at bedside Time Spent With Patient Time: Total time managing care of this patient today ____ minutes. Quality Stroke Does the patient have a stroke diagnosis?: No VTE Prior VTE?: No VTE Risk Level:: Medical - moderate - high VTE Device Contraindication: N/A - Device Ordered VTE Drug Contraindication: Treatment Not Indicated
[2023-02-23 21:21] LABS: OBS Int Ctl Valid YES; OBS1 NEGATIVE (NEGATIVE)
--- NOTE | 2023-02-23 22:33 | MHC.EDTECH ---
PATIENT HAD A SANDWICH AND DRANK A CAN OF RANDOLPHBunny CHAU[T WAS CHANGE INTO HOSPITAL ATTIRE ,PURE WICK IN PLACE ,PT BELONING LIST DONE ,PT COMFORTABLE ,NO APARENT DISTRESS AT THIS TIME ,WILL CONTINUE TO MONITOR .
[2023-02-24] VITALS (9 sets, daily range): BP systolic 89–114; BP diastolic 50–61; PULSE 75–83; RESP 14–18; TEMP 36.6–37.1; O2SAT 96–100; BMI 19.8
[2023-02-24] MEDS: 0.9 % Sodium Chloride Flush 3 ML SYRINGE IVFLUSH ×2 (03:29→15:48)
[2023-02-24 05:55] LABS: Hemoglobin 8.2 g/dl (12.0-16.0); Mean Corpuscular HGB Conc 32.8 g/dl (31.0-35.0); Mean Corpuscular Hemoglobin 28.2 pg (27.0-33.0); Mean Corpuscular Volume 85.9 fL (80.0-98.0); Mean Platelet Volume 11.8 fL (9.4-12.3); Platelet Count 63 X10*3/uL (160-400); Red Blood Count 2.91 X10*6/uL (4.20-5.50); Red Cell Distribution Width 16.8 % (11.0-16.0); White Blood Count 3.1 X10*3/uL (4.8-10.8)
[2023-02-24 06:18] LABS: Anion Gap 15 (12-20); Blood Urea Nitrogen 7 mg/dL (9-16); Calcium 8.3 mg/dL (8.4-10.2); Carbon Dioxide 21 mmol/L (22-29); Chloride 106 mmol/L (96-108); Estimated Glomerular Filt Rate > 60; Glucose Random 71 mg/dL (60-115); Potassium 3.7 mmol/L (3.3-5.1); Sodium 138 mmol/L (135-145)
--- NOTE | 2023-02-24 08:16 | PHA.MEDREC ---
Pharmacy Consult ? Medication Reconciliation Pharmacy has completed the medication reconciliation.
--- NOTE | 2023-02-24 10:00 | PC.NURSE ---
assumed care of this pt at 0700. pt asleep at the time of assuming care. pt woken up to do orthos and she refused. nurse to nurse report given to HECTOR Garcia. transporter will bring pt to room 461.
[2023-02-24] MEDS: Omeprazole 20 MG CAPSULE.DR PO (12:23)
[2023-02-24] MEDS: 0.9 % Sodium Chloride 1,000 ML 999 ML IV (12:24)
[2023-02-24] MEDS: Sulfamethox/Trimeth 800/160 TABLET 1 TAB PO (12:24)
--- NOTE | 2023-02-24 13:13 | MHC.CM.PN ---
TASHIA 02/24. 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 Pts son will transport her home vs [employer] shuttle. No HCP, declined at this time. PCP: Dr. Mis Gutierrez
--- NOTE | 2023-02-24 13:42 | P.PNIM_ITS ---
Subjective Subjective Date of Service: 02/24/23 Interval History: Seen and evaluated Feels better denies dizziness at this point still BP running low Review of Systems Review of Systems: Yes all other systems are reviewed and are negative Physical Exam 2 Vital Signs: Vital Signs: Last Vital Signs Temp 97.9 F 02/24/23 11:18 Pulse 80 02/24/23 11:18 Resp 18 02/24/23 11:18 BP 112/61 02/24/23 11:18 Pulse Ox 97 02/24/23 11:18 O2 Del Method Room Air 02/24/23 11:18 BMI result Body Mass Index 19.8 Const: Other: Constitutional : Awake, interactive, not in distress Neck : Normal inspection, Supple Cardiovascular : RRR, no JVP, no lower extremity edema Respiratory : good bilateral air entry, no crackles, wheezes or rhonchi Gastrointestinal: soft, lax, Normal bowel sounds, Non tender Skin : Warm, Dry Neurological : Alert & oriented x3, No focal deficit Objective Data Active Medications Acetaminophen (Acetaminophen 325 Mg Tablet) 650 mg PO Q6H PRN PRN Reason: Pain, Mild (Pain Scale 1-3) Albuterol Sulfate (Albuterol Sulfate (0.083%) 2.5 Mg/3 Ml Vial.Neb) 2.5 mg INHALE Q4H PRN PRN Reason: Wheezing Albuterol Sulfate (Albuterol Sulfate 90 Mcg 8 Gm Inhaler) 2 puff INHALE Q4H PRN PRN Reason: Shortness Of Breath Or Wheezing Atorvastatin Calcium (Atorvastatin Calcium 80 Mg Tablet) 80 mg PO BEDTIME [facility] Fluticasone Propionate (Fluticasone Propionate Nasal 16 Gm [place]) 1 spray NOSTRIL-B BID PRN PRN Reason: Allergy Symptoms Loratadine (Loratadine 10 Mg Tablet) 10 mg PO DAILY PRN PRN Reason: Allergic Symptoms Melatonin (Melatonin 3 Mg Tablet) 6 mg PO BEDTIME PRN PRN Reason: Insomnia Omeprazole (Omeprazole 20 Mg Capsule.) 20 mg PO DAILY@0630 [facility] Last Admin: 02/24/23 12:23 Dose: 20 mg Documented By: SAL Ondansetron HCl (Ondansetron Hcl 4 Mg/2 Ml Vial) 4 mg IVPUSH Q8H PRN PRN Reason: Nausea and Vomiting Oxycodone HCl (Oxycodone Hcl Immed Release 5 Mg Tablet) 5 mg PO Q6H PRN PRN Reason: Pain, Severe (Pain Scale 7-10) Polyethylene Glycol (Polyethylene Glycol 3350 17 Gm Powd.Pack) 17 gm PO DAILY PRN PRN Reason: constipation Sodium Chloride (0.9 % Sodium Chloride Flush 3 Ml Syringe) 3 ml IVFLUSH QSHIFT [facility] Last Admin: 02/24/23 07:33 Dose: Not Given Documented By: FRANCISCO Non-Admin Reason: IV Running Trimethoprim/Sulfamethoxazole (Sulfamethox/Trimeth 800/160 Tablet) 1 tab PO DAILY [facility] Last Admin: 02/24/23 12:24 Dose: 1 tab Documented By: SAL Comments: part of label ripped. Verified with second nurse Labs 02/24/23 05:34 02/24/23 05:34 Labs: Laboratory Results - last 24 hr 02/23/23 02/23/23 02/23/23 17:50 18:27 19:19 MCV 83.9 MCH 28.0 MCHC 33.3 RDW 16.6 H Plt Count 98 L D MPV 11.5 Immature Gran % (Auto) Cancelled Neut % (Auto) Cancelled Lymph % (Auto) Cancelled [place] % (Auto) Cancelled Eos % (Auto) Cancelled Baso % (Auto) Cancelled Lymph # (Auto) Cancelled [place] # (Auto) Cancelled Eos # (Auto) Cancelled Baso # (Auto) Cancelled Abs Immat Gran (auto) Cancelled Absolute Neuts (auto) Cancelled Absolute Nucleated RBC 0.000 Nucleated RBC % (auto) 0.0 Neutrophils % (Manual) 72 Band Neutrophils % 8 H Lymphocytes % (Manual) 14 L Monocytes % (Manual) 5 Metamyelocytes % 1 Abs Neuts (Manual) 1.6 L Lymphocytes # (Manual) 0.3 L Monocytes # (Manual) 0.1 Dohle Bodies PRESENT Platelet Estimate DECREASED Plt Morphology Comment NORMAL RBC Morphology NORMAL Hypochromasia 1+ (5-14) Magdiel Cells 1+ (0-2) Schistocytes 1+ (0-2) PT 12.0 INR 1.0 APTT 26.9 Anion Gap 14 Estim Creat Clear Calc 46.4 Estimated GFR > 60 Random Glucose 73 Lactic Acid 0.9 Calcium 8.9 Magnesium 2.1 Total Bilirubin 0.4 AST 11 ALT 8 Alkaline Phosphatase 75 Total Protein 5.6 L Albumin 3.2 L Urine Color Yellow Urine Appearance Clear Urine pH 6.5 Ur Specific [place] 1.010 Urine Protein Trace Urine Glucose (UA) Negative Urine Ketones 15 Urine Blood Negative Urine Nitrite Negative Ur Leukocyte Esterase Negative Stool Occult Blood Influenza Type A (PCR) NEGATIVE Influenza Type B (PCR) NEGATIVE RSV RNA Qual (PCR) NEGATIVE SARS-CoV-2 RNA (RT-PCR) NEGATIVE 02/23/23 02/24/23 21:16 05:34 MCV 85.9 MCH 28.2 MCHC 32.8 RDW 16.8 H Plt Count 63 L D MPV 11.8 Immature Gran % (Auto) Neut % (Auto) Lymph % (Auto) [place] % (Auto) Eos % (Auto) Baso % (Auto) Lymph # (Auto) [place] # (Auto) Eos # (Auto) Baso # (Auto) Abs Immat Gran (auto) Absolute Neuts (auto) Absolute Nucleated RBC 0.000 Nucleated RBC % (auto) 0.0 Neutrophils % (Manual) Band Neutrophils % Lymphocytes % (Manual) Monocytes % (Manual) Metamyelocytes % Abs Neuts (Manual) Lymphocytes # (Manual) Monocytes # (Manual) Dohle Bodies Platelet Estimate Plt Morphology Comment RBC Morphology Hypochromasia [place] Cells Schistocytes PT INR APTT Anion Gap 15 Estim Creat Clear Calc 49.0 Estimated GFR > 60 Random Glucose 71 Lactic Acid Calcium 8.3 L D Magnesium Total Bilirubin AST ALT Alkaline Phosphatase Total Protein Albumin Urine Color Urine Appearance Urine pH Ur Specific [place] Urine Protein Urine Glucose (UA) Urine Ketones Urine Blood Urine Nitrite Ur Leukocyte Esterase Stool Occult Blood NEGATIVE Influenza Type A (PCR) Influenza Type B (PCR) RSV RNA Qual (PCR) SARS-CoV-2 RNA (RT-PCR) Assessment and Plan (1) Orthostasis: Status: Acute (2) Moderate protein malnutrition: Status: Acute Plan This is a 77 year old female with 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 # Syncope 2/2 Orthostatic hypotension IV crystalloids. Hold BP meds Repeat orthostatics in am # Pancytopenia due to chemotherpay Stool occult blood negative in the ER # Gastroesophageal reflux disease PPI # Mixed hyperlipidemia statin # Chronic pain with chronic opioid use Continue oxycodone p.r.n. DVT prophylaxis: Mechanical. Defer Lovenox in the setting of thrombocytopenia Full code. Time Spent With Patient Time: Total time managing care of this patient today ____ minutes. Quality Stroke Does the patient have a stroke diagnosis?: No VTE Prior VTE?: No VTE Risk Level:: Medical - moderate - high VTE Device Contraindication: N/A - Device Ordered VTE Drug Contraindication: Treatment Not Indicated
[2023-02-24] MEDS: Atorvastatin Calcium 80 MG TABLET PO (19:27)
[2023-02-24] MEDS: Acetaminophen 325 MG TABLET 650 MG PO (19:32)
[2023-02-25] VITALS (8 sets, daily range): BP systolic 62–109; BP diastolic 38–59; PULSE 61–99; RESP 16–20; TEMP 36.6–37.4; O2SAT 95–100
[2023-02-25] MEDS: Omeprazole 20 MG CAPSULE.DR PO (06:06)
[2023-02-25 07:38] LABS: Hemoglobin 8.7 g/dl (12.0-16.0); PLT CLUMP 1
[2023-02-25 07:39] LABS: Hematocrit 26.4 % (37.0-47.0); Mean Corpuscular Hemoglobin 27.7 pg (27.0-33.0); Mean Corpuscular Volume 84.1 fL (80.0-98.0); Red Blood Count 3.14 X10*6/uL (4.20-5.50); Red Cell Distribution Width 16.8 % (11.0-16.0)
[2023-02-25 07:45] LABS: Platelet Count 107 X10*3/uL (160-400)
[2023-02-25] MEDS: 0.9 % Sodium Chloride Flush 3 ML SYRINGE IVFLUSH ×2 (07:49→15:34)
[2023-02-25] MEDS: Sulfamethox/Trimeth 800/160 TABLET 1 TAB PO (07:49)
[2023-02-25 07:54] LABS: Anion Gap 12 (12-20); Blood Urea Nitrogen 4 mg/dL (9-16); Calcium 8.4 mg/dL (8.4-10.2); Carbon Dioxide 25 mmol/L (22-29); Chloride 109 mmol/L (96-108); Estimated Glomerular Filt Rate > 60; Glucose Random 88 mg/dL (60-115); Potassium 3.2 mmol/L (3.3-5.1); Sodium 143 mmol/L (135-145)
[2023-02-25] MEDS: 0.9 % Sodium Chloride 1,000 ML 999 ML IV (11:02)
[2023-02-25] MEDS: Midodrine HCl 5 MG TABLET PO ×3 (11:02→22:43)
--- NOTE | 2023-02-25 12:22 | P.PNIM_ITS ---
Subjective Subjective Date of Service: 02/25/23 Interval History: Seen and evaluated positive orthostatic readings felt dizzy upon standing still BP running low Review of Systems Review of Systems: Yes all other systems are reviewed and are negative Physical Exam 2 Vital Signs: Vital Signs: Last Vital Signs Temp 99.4 F 02/25/23 10:58 Pulse 90 02/25/23 10:58 Resp 20 02/25/23 10:58 BP 95/52 L 02/25/23 10:58 Pulse Ox 95 02/25/23 10:58 O2 Del Method Room Air 02/25/23 10:58 BMI result Body Mass Index 19.8 Const: Other: Constitutional : Awake, interactive, not in distress Neck : Normal inspection, Supple Cardiovascular : RRR, no JVP, no lower extremity edema Respiratory : good bilateral air entry, no crackles, wheezes or rhonchi Gastrointestinal: soft, lax, Normal bowel sounds, Non tender Skin : Warm, Dry Neurological : Alert & oriented x3, No focal deficit Objective Data Active Medications Acetaminophen (Acetaminophen 325 Mg Tablet) 650 mg PO Q6H PRN PRN Reason: Pain, Mild (Pain Scale 1-3) Last Admin: 02/24/23 19:32 Dose: 650 mg Documented By: GIBSON Albuterol Sulfate (Albuterol Sulfate (0.083%) 2.5 Mg/3 Ml Vial.Neb) 2.5 mg INHALE Q4H PRN PRN Reason: Wheezing Albuterol Sulfate (Albuterol Sulfate 90 Mcg 8 Gm Inhaler) 2 puff INHALE Q4H PRN PRN Reason: Shortness Of Breath Or Wheezing Atorvastatin Calcium (Atorvastatin Calcium 80 Mg Tablet) 80 mg PO BEDTIME [facility] Last Admin: 02/24/23 19:27 Dose: 80 mg Documented By: GIBSON Fluticasone Propionate (Fluticasone Propionate Nasal 16 Gm [place]) 1 spray NOSTRIL-B BID PRN PRN Reason: Allergy Symptoms Loratadine (Loratadine 10 Mg Tablet) 10 mg PO DAILY PRN PRN Reason: Allergic Symptoms Melatonin (Melatonin 3 Mg Tablet) 6 mg PO BEDTIME PRN PRN Reason: Insomnia Midodrine (Midodrine Hcl 5 Mg Tablet) 5 mg PO TID [facility] Last Admin: 02/25/23 11:02 Dose: 5 mg Documented By: SAL Omeprazole (Omeprazole 20 Mg Capsule.) 20 mg PO DAILY@0630 [facility] Last Admin: 02/25/23 06:06 Dose: 20 mg Documented By: PHANI Ondansetron HCl (Ondansetron Hcl 4 Mg/2 Ml Vial) 4 mg IVPUSH Q8H PRN PRN Reason: Nausea and Vomiting Oxycodone HCl (Oxycodone Hcl Immed Release 5 Mg Tablet) 5 mg PO Q6H PRN PRN Reason: Pain, Severe (Pain Scale 7-10) Polyethylene Glycol (Polyethylene Glycol 3350 17 Gm Powd.Pack) 17 gm PO DAILY PRN PRN Reason: constipation Sodium Chloride (0.9 % Sodium Chloride Flush 3 Ml Syringe) 3 ml IVFLUSH QSHIFT [facility] Last Admin: 02/25/23 07:49 Dose: 3 ml Documented By: SAL Trimethoprim/Sulfamethoxazole (Sulfamethox/Trimeth 800/160 Tablet) 1 tab PO DAILY [facility] Last Admin: 02/25/23 07:49 Dose: 1 tab Documented By: SAL Labs 02/25/23 06:51 02/25/23 06:51 Labs: Laboratory Results - last 24 hr 02/25/23 06:51 MCV 84.1 MCH 27.7 MCHC 33.0 RDW 16.8 H Plt Count 107 L D MPV 12.0 Absolute Nucleated RBC 0.000 Nucleated RBC % (auto) 0.0 Anion Gap 12 Estim Creat Clear Calc 49.0 Estimated GFR > 60 Random Glucose 88 Calcium 8.4 Microbiology Microbiology Results: Microbiology 02/23/23 18:27 Blood Culture - Preliminary Blood - Venous No growth after 24 hours. 02/23/23 16:48 Blood Culture - Preliminary Blood - Venous No growth after 24 hours. 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 # Syncope 2/2 Orthostatic hypotension IV crystalloids. Hold BP meds start Midodrine Repeat orthostatics in am # Pancytopenia due to chemotherpay Stool occult blood negative in the ER # Moderate protein malnutrition Add ensure # Gastroesophageal reflux disease PPI # Mixed hyperlipidemia statin # Chronic pain with chronic opioid use Continue oxycodone p.r.n. DVT prophylaxis: Mechanical. Defer Lovenox in the setting of thrombocytopenia Full code. Time Spent With Patient Time: Total time managing care of this patient today ____ minutes. Quality Stroke Does the patient have a stroke diagnosis?: No VTE Prior VTE?: No VTE Risk Level:: Medical - moderate - high VTE Device Contraindication: N/A - Device Ordered VTE Drug Contraindication: Treatment Not Indicated
[2023-02-25] MEDS: Potassium Chloride ER 20 MEQ TAB.ER.PRT PO (13:02)
[2023-02-25] MEDS: Atorvastatin Calcium 80 MG TABLET PO (22:43)
[2023-02-26] VITALS (11 sets, daily range): BP systolic 90–128; BP diastolic 50–65; PULSE 67–80; RESP 16–20; TEMP 36.1–37.3; O2SAT 97–100
--- NOTE | 2023-02-26 04:40 | PC.NURSE ---
Pt pulled out IV at 0300. New IV placement was unsuccessful by 3 RNs. Pt refusing anymore attempts at this time.
[2023-02-26] MEDS: Omeprazole 20 MG CAPSULE.DR PO (05:40)
[2023-02-26] MEDS: Midodrine HCl 5 MG TABLET PO ×3 (09:19→21:55)
[2023-02-26] MEDS: 0.9 % Sodium Chloride 1,000 ML 999 ML IV (09:19)
[2023-02-26] MEDS: 0.9 % Sodium Chloride Flush 3 ML SYRINGE IVFLUSH ×2 (09:19→17:33)
[2023-02-26] MEDS: Sulfamethox/Trimeth 800/160 TABLET 1 TAB PO (09:19)
[2023-02-26] MEDS: Fludrocortisone Acetate 0.1 MG TABLET PO (09:19)
--- NOTE | 2023-02-26 09:23 | MHC.CM.PN ---
Patient was switched from OBSERVATION to INPATIENT on 02/25/2023; CM met with Patient at bedside and addressed IMM with her (original was given to Patient and a copy has been placed on the chart).
--- NOTE | 2023-02-26 14:15 | P.PNIM_ITS ---
Subjective Subjective Date of Service: 02/26/23 Interval History: Seen and evaluated positive orthostatic readings felt dizzy upon standing reporting abd pain still BP running low Review of Systems Review of Systems: Yes all other systems are reviewed and are negative Physical Exam 2 Vital Signs: Vital Signs: Last Vital Signs Temp 97.7 F 02/26/23 11:24 Pulse 80 02/26/23 11:55 Resp 16 02/26/23 11:24 BP 100/57 L 02/26/23 11:55 Pulse Ox 99 02/26/23 11:24 O2 Del Method Room Air 02/26/23 11:24 BMI result Body Mass Index 19.8 Const: Other: Constitutional : Awake, interactive, not in distress Neck : Normal inspection, Supple Cardiovascular : RRR, no JVP, no lower extremity edema Respiratory : good bilateral air entry, no crackles, wheezes or rhonchi Gastrointestinal: soft, lax, Normal bowel sounds, Non tender Skin : Warm, Dry Neurological : Alert & oriented x3, No focal deficit Objective Data Active Medications Acetaminophen (Acetaminophen 325 Mg Tablet) 650 mg PO Q6H PRN PRN Reason: Pain, Mild (Pain Scale 1-3) Last Admin: 02/24/23 19:32 Dose: 650 mg Documented By: GIBSON Albuterol Sulfate (Albuterol Sulfate (0.083%) 2.5 Mg/3 Ml Vial.Neb) 2.5 mg INHALE Q4H PRN PRN Reason: Wheezing Albuterol Sulfate (Albuterol Sulfate 90 Mcg 8 Gm Inhaler) 2 puff INHALE Q4H PRN PRN Reason: Shortness Of Breath Or Wheezing Atorvastatin Calcium (Atorvastatin Calcium 80 Mg Tablet) 80 mg PO BEDTIME [facility] Last Admin: 02/25/23 22:43 Dose: 80 mg Documented By: LAKEISHA Dicyclomine HCl (Dicyclomine Hcl 10 Mg Capsule) 10 mg PO TIDAC [facility] Fludrocortisone Acetate (Fludrocortisone Acetate 0.1 Mg Tablet) 0.1 mg PO DAILY [facility] Last Admin: 02/26/23 09:19 Dose: 0.1 mg Documented By: GAYLE Fluticasone Propionate (Fluticasone Propionate Nasal 16 Gm [place]) 1 spray NOSTRIL-B BID PRN PRN Reason: Allergy Symptoms Loratadine (Loratadine 10 Mg Tablet) 10 mg PO DAILY PRN PRN Reason: Allergic Symptoms Melatonin (Melatonin 3 Mg Tablet) 6 mg PO BEDTIME PRN PRN Reason: Insomnia Midodrine (Midodrine Hcl 5 Mg Tablet) 5 mg PO TID [facility] Last Admin: 02/26/23 09:19 Dose: 5 mg Documented By: GAYLE Omeprazole (Omeprazole 20 Mg Capsule.) 20 mg PO DAILY@0630 [facility] Last Admin: 02/26/23 05:40 Dose: 20 mg Documented By: KARUNA Ondansetron HCl (Ondansetron Hcl 4 Mg/2 Ml Vial) 4 mg IVPUSH Q8H PRN PRN Reason: Nausea and Vomiting Oxycodone HCl (Oxycodone Hcl Immed Release 5 Mg Tablet) 5 mg PO Q6H PRN PRN Reason: Pain, Severe (Pain Scale 7-10) Polyethylene Glycol (Polyethylene Glycol 3350 17 Gm Powd.Pack) 17 gm PO DAILY PRN PRN Reason: constipation Sodium Chloride (0.9 % Sodium Chloride Flush 3 Ml Syringe) 3 ml IVFLUSH QSHIFT [facility] Last Admin: 02/26/23 09:19 Dose: 3 ml Documented By: GAYLE Trimethoprim/Sulfamethoxazole (Sulfamethox/Trimeth 800/160 Tablet) 1 tab PO DAILY [facility] Last Admin: 02/26/23 09:19 Dose: 1 tab Documented By: GAYLE Labs 02/25/23 06:51 02/25/23 06:51 Microbiology Microbiology Results: Microbiology 02/23/23 18:27 Blood Culture - Preliminary Blood - Venous No growth after 48 hours. 02/23/23 16:48 Blood Culture - Preliminary Blood - Venous No growth after 48 hours. 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 # Syncope 2/2 Orthostatic hypotension IV crystalloids. Hold BP meds Midodrine, Fludricortisone Repeat orthostatics in am # Pancytopenia due to chemotherpay Stool occult blood negative in the ER # Moderate protein malnutrition Add ensure # Gastroesophageal reflux disease PPI # Mixed hyperlipidemia statin # Chronic pain with chronic opioid use Continue oxycodone p.r.n. DVT prophylaxis: Mechanical. Defer Lovenox in the setting of thrombocytopenia Full code. Time Spent With Patient Time: Total time managing care of this patient today ____ minutes. Quality Stroke Does the patient have a stroke diagnosis?: No VTE Prior VTE?: No VTE Risk Level:: Medical - moderate - high VTE Device Contraindication: N/A - Device Ordered VTE Drug Contraindication: Treatment Not Indicated
[2023-02-26 15:00] LABS: Anion Gap 10 (12-20); Calcium 7.7 mg/dL (8.4-10.2); Carbon Dioxide 24 mmol/L (22-29); Chloride 111 mmol/L (96-108); Creatinine Clr Calc Pharmacy 52.9; Estimated Glomerular Filt Rate > 60; Glucose Random 85 mg/dL (60-115); Potassium 3.1 mmol/L (3.3-5.1); Sodium 142 mmol/L (135-145)
[2023-02-26] MEDS: Lactated Ringers 1,000 ML 100 ML IVCONT (15:00)
[2023-02-26] MEDS: Dicyclomine HCl 10 MG CAPSULE PO ×3 (15:00→17:35)
[2023-02-26 15:39] LABS: Blood Urea Nitrogen < 3 mg/dL (9-16)
[2023-02-26] MEDS: Atorvastatin Calcium 80 MG TABLET PO (21:55)
[2023-02-27] VITALS (9 sets, daily range): BP systolic 91–128; BP diastolic 49–67; PULSE 69–102; RESP 18–20; TEMP 36.1–36.8; O2SAT 94–100
[2023-02-27] MEDS: Lactated Ringers 1,000 ML 100 ML IVCONT ×2 (01:00→10:12)
[2023-02-27] MEDS: Omeprazole 20 MG CAPSULE.DR PO (06:17)
[2023-02-27 06:59] LABS: Anion Gap 10 (12-20); Blood Urea Nitrogen 5 mg/dL (9-16); Calcium 7.7 mg/dL (8.4-10.2); Carbon Dioxide 24 mmol/L (22-29); Chloride 110 mmol/L (96-108); Creatinine Clr Calc Pharmacy 55.4; Estimated Glomerular Filt Rate > 60; Glucose Random 89 mg/dL (60-115); Sodium 141 mmol/L (135-145)
[2023-02-27] MEDS: Midodrine HCl 5 MG TABLET PO ×3 (08:00→20:34)
[2023-02-27] MEDS: Potassium Chloride Packet 20 MEQ PACKET 40 MEQ PO (08:00)
[2023-02-27] MEDS: Sulfamethox/Trimeth 800/160 TABLET 1 TAB PO (08:01)
[2023-02-27] MEDS: Fludrocortisone Acetate 0.1 MG TABLET PO (08:01)
[2023-02-27] MEDS: 0.9 % Sodium Chloride Flush 3 ML SYRINGE IVFLUSH ×3 (08:01→16:15)
[2023-02-27] MEDS: Dicyclomine HCl 10 MG CAPSULE PO ×3 (08:01→16:12)
[2023-02-27] MEDS: Potassium Chloride/H20 10 MEQ/100 ML PIGGYBACK 100 MEQ IV ×2 (10:13→11:31)
--- NOTE | 2023-02-27 14:12 | P.PNIM_ITS ---
Subjective Subjective Date of Service: 02/27/23 Interval History: Seen and evaluated had episodes of vomiting and diarrhea this morning positive orthostatic readings still feeling dizzy upon standing reporting abd pain still BP running low Review of Systems Review of Systems: Yes all other systems are reviewed and are negative Physical Exam 2 Vital Signs: Vital Signs: Last Vital Signs Temp 97.6 F 02/27/23 11:43 Pulse 69 02/27/23 11:43 Resp 20 02/27/23 11:43 BP 100/58 L 02/27/23 11:43 Pulse Ox 96 02/27/23 11:43 O2 Del Method Room Air 02/27/23 11:43 BMI result Body Mass Index 19.8 Const: Other: Constitutional : Awake, interactive, not in distress Neck : Normal inspection, Supple Cardiovascular : RRR, no JVP, no lower extremity edema Respiratory : good bilateral air entry, no crackles, wheezes or rhonchi Gastrointestinal: soft, lax, Normal bowel sounds, Non tender Skin : Warm, Dry Neurological : Alert & oriented x3, No focal deficit Objective Data Active Medications Acetaminophen (Acetaminophen 325 Mg Tablet) 650 mg PO Q6H PRN PRN Reason: Pain, Mild (Pain Scale 1-3) Last Admin: 02/24/23 19:32 Dose: 650 mg Documented By: GIBSON Albuterol Sulfate (Albuterol Sulfate (0.083%) 2.5 Mg/3 Ml Vial.Neb) 2.5 mg INHALE Q4H PRN PRN Reason: Wheezing Albuterol Sulfate (Albuterol Sulfate 90 Mcg 8 Gm Inhaler) 2 puff INHALE Q4H PRN PRN Reason: Shortness Of Breath Or Wheezing Atorvastatin Calcium (Atorvastatin Calcium 80 Mg Tablet) 80 mg PO BEDTIME [facility] Last Admin: 02/26/23 21:55 Dose: 80 mg Documented By: DANIELLE Dicyclomine HCl (Dicyclomine Hcl 10 Mg Capsule) 10 mg PO TIDAC [facility] Last Admin: 02/27/23 11:31 Dose: 10 mg Documented By: CHARLES Fludrocortisone Acetate (Fludrocortisone Acetate 0.1 Mg Tablet) 0.1 mg PO DAILY [facility] Last Admin: 02/27/23 08:01 Dose: 0.1 mg Documented By: CHARLES Fluticasone Propionate (Fluticasone Propionate Nasal 16 Gm [place]) 1 spray NOSTRIL-B BID PRN PRN Reason: Allergy Symptoms Lactated Ringer's (Lr) 1,000 mls @ 100 mls/hr IVCONT .Q10H [facility] Last Infusion: 02/27/23 11:19 Dose: Infused Documented By: CHARLES Loratadine (Loratadine 10 Mg Tablet) 10 mg PO DAILY PRN PRN Reason: Allergic Symptoms Melatonin (Melatonin 3 Mg Tablet) 6 mg PO BEDTIME PRN PRN Reason: Insomnia Midodrine (Midodrine Hcl 5 Mg Tablet) 5 mg PO TID [facility] Last Admin: 02/27/23 08:00 Dose: 5 mg Documented By: CHARLES Omeprazole (Omeprazole 20 Mg Capsule.Dr) 20 mg PO DAILY@0630 [facility] Last Admin: 02/27/23 06:17 Dose: 20 mg Documented By: DANIELLE Ondansetron HCl (Ondansetron Hcl 4 Mg/2 Ml Vial) 4 mg IVPUSH Q8H PRN PRN Reason: Nausea and Vomiting Oxycodone HCl (Oxycodone Hcl Immed Release 5 Mg Tablet) 5 mg PO Q6H PRN PRN Reason: Pain, Severe (Pain Scale 7-10) Polyethylene Glycol (Polyethylene Glycol 3350 17 Gm Powd.Pack) 17 gm PO DAILY PRN PRN Reason: constipation Sodium Chloride (0.9 % Sodium Chloride Flush 3 Ml Syringe) 3 ml IVFLUSH QSHIFT [facility] Last Admin: 02/27/23 08:01 Dose: 3 ml Documented By: CHARLES Trimethoprim/Sulfamethoxazole (Sulfamethox/Trimeth 800/160 Tablet) 1 tab PO DAILY [facility] Last Admin: 02/27/23 08:01 Dose: 1 tab Documented By: CHARLES Labs 02/25/23 06:51 02/27/23 06:09 Labs: Laboratory Results - last 24 hr 02/26/23 02/27/23 02/27/23 14:40 06:09 06:40 Hold Purple Top SEE NOTE Anion Gap 10 L 10 L Estim Creat Clear Calc 52.9 55.4 Estimated GFR > 60 > 60 Random Glucose 85 89 Calcium 7.7 L D 7.7 L Assessment and Plan (1) Anemia: Status: Acute (2) Orthostasis: Status: Acute (3) Moderate protein malnutrition: Status: Acute (4) Hypokalemia: Status: Acute Plan This is a 77 year old female with 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 # Syncope 2/2 Orthostatic hypotension Hold IVF for developing edema Hold BP meds Midodrine, Fludricortisone Recheck H&H today and Consider PRBCs transfusion ? Repeat orthostatics in am # Vomiting, diarrhea related to PO liquid potassium Symptomatic measures # Acute hypokalemia replacement given follow BMP # Pancytopenia due to chemotherpay Stool occult blood negative in the ER # Moderate protein malnutrition Add ensure # Gastroesophageal reflux disease PPI # Mixed hyperlipidemia statin # Chronic pain with chronic opioid use Continue oxycodone p.r.n. DVT prophylaxis: Mechanical. Defer Lovenox in the setting of thrombocytopenia Full code. Time Spent With Patient Time: Total time managing care of this patient today ____ minutes. Quality Stroke Does the patient have a stroke diagnosis?: No VTE Prior VTE?: No VTE Risk Level:: Medical - moderate - high VTE Device Contraindication: N/A - Device Ordered VTE Drug Contraindication: Treatment Not Indicated
[2023-02-27 16:37] LABS: Hematocrit 21.1 % (37.0-47.0); Hemoglobin 7.1 g/dl (12.0-16.0); Mean Corpuscular HGB Conc 33.6 g/dl (31.0-35.0); Mean Corpuscular Hemoglobin 28.3 pg (27.0-33.0); Mean Corpuscular Volume 84.1 fL (80.0-98.0); Platelet Count 130 X10*3/uL (160-400); Red Blood Count 2.51 X10*6/uL (4.20-5.50); Red Cell Distribution Width 17.6 % (11.0-16.0)
[2023-02-27 16:39] LABS: White Blood Count 8.7 X10*3/uL (4.8-10.8)
[2023-02-27] MEDS: Atorvastatin Calcium 80 MG TABLET PO (20:34)
[2023-02-27] MEDS: Acetaminophen 325 MG TABLET 650 MG PO (20:35)
[2023-02-28] VITALS (9 sets, daily range): BP systolic 92–113; BP diastolic 48–61; PULSE 64–88; RESP 16–20; TEMP 36–37.7; O2SAT 98–100
[2023-02-28] MEDS: Omeprazole 20 MG CAPSULE.DR PO (05:51)
[2023-02-28] MEDS: 0.9 % Sodium Chloride Flush 3 ML SYRINGE IVFLUSH ×4 (09:18→21:30)
[2023-02-28] MEDS: Midodrine HCl 5 MG TABLET PO ×3 (09:19→21:25)
[2023-02-28] MEDS: Fludrocortisone Acetate 0.1 MG TABLET PO (09:19)
[2023-02-28] MEDS: Sulfamethox/Trimeth 800/160 TABLET 1 TAB PO (09:19)
[2023-02-28] MEDS: Dicyclomine HCl 10 MG CAPSULE PO ×3 (09:19→16:10)
--- NOTE | 2023-02-28 10:30 | P.PNIM_ITS ---
Subjective Subjective Date of Service: 02/28/23 Interval History: weakness Physical Exam 2 Vital Signs: Vital Signs: Last Vital Signs Temp 99.9 F 02/28/23 07:23 Pulse 81 02/28/23 07:23 Resp 20 02/28/23 07:23 BP 100/50 L 02/28/23 07:23 Pulse Ox 100 02/28/23 07:23 O2 Del Method Room Air 02/28/23 07:23 BMI result Body Mass Index 19.8 Const: Other: Constitutional : Awake, interactive, not in distress Neck : Normal inspection, Supple Cardiovascular : RRR, no JVP, no lower extremity edema Respiratory : good bilateral air entry, no crackles, wheezes or rhonchi Gastrointestinal: soft, lax, Normal bowel sounds, Non tender Skin : Warm, Dry Neurological : Alert & oriented x3, No focal deficit Objective Data Active Medications Acetaminophen (Acetaminophen 325 Mg Tablet) 650 mg PO Q6H PRN PRN Reason: Pain, Mild (Pain Scale 1-3) Last Admin: 02/27/23 20:35 Dose: 650 mg Documented By: DANIELLE Albuterol Sulfate (Albuterol Sulfate (0.083%) 2.5 Mg/3 Ml Vial.Neb) 2.5 mg INHALE Q4H PRN PRN Reason: Wheezing Albuterol Sulfate (Albuterol Sulfate 90 Mcg 8 Gm Inhaler) 2 puff INHALE Q4H PRN PRN Reason: Shortness Of Breath Or Wheezing Atorvastatin Calcium (Atorvastatin Calcium 80 Mg Tablet) 80 mg PO BEDTIME [facility] Last Admin: 02/27/23 20:34 Dose: 80 mg Documented By: DANIELLE Dicyclomine HCl (Dicyclomine Hcl 10 Mg Capsule) 10 mg PO TIDAC [facility] Last Admin: 02/28/23 09:19 Dose: 10 mg Documented By: JACQUI Fludrocortisone Acetate (Fludrocortisone Acetate 0.1 Mg Tablet) 0.1 mg PO DAILY [facility] Last Admin: 02/28/23 09:19 Dose: 0.1 mg Documented By: JACQUI Fluticasone Propionate (Fluticasone Propionate Nasal 16 Gm [place]) 1 spray NOSTRIL-B BID PRN PRN Reason: Allergy Symptoms Lactated Ringer's (Lr) 1,000 mls @ 100 mls/hr IVCONT .Q10H [facility] Last Admin: 02/28/23 07:52 Dose: Not Given Documented By: CHARLES Non-Admin Reason: Medication Discontinued Loratadine (Loratadine 10 Mg Tablet) 10 mg PO DAILY PRN PRN Reason: Allergic Symptoms Melatonin (Melatonin 3 Mg Tablet) 6 mg PO BEDTIME PRN PRN Reason: Insomnia Midodrine (Midodrine Hcl 5 Mg Tablet) 5 mg PO TID [facility] Last Admin: 02/28/23 09:19 Dose: 5 mg Documented By: JACQUI Omeprazole (Omeprazole 20 Mg Capsule.Dr) 20 mg PO DAILY@0630 [facility] Last Admin: 02/28/23 05:51 Dose: 20 mg Documented By: DANIELLE Ondansetron HCl (Ondansetron Hcl 4 Mg/2 Ml Vial) 4 mg IVPUSH Q8H PRN PRN Reason: Nausea and Vomiting Oxycodone HCl (Oxycodone Hcl Immed Release 5 Mg Tablet) 5 mg PO Q6H PRN PRN Reason: Pain, Severe (Pain Scale 7-10) Polyethylene Glycol (Polyethylene Glycol 3350 17 Gm Powd.Pack) 17 gm PO DAILY PRN PRN Reason: constipation Sodium Chloride (0.9 % Sodium Chloride Flush 3 Ml Syringe) 3 ml IVFLUSH QSHIFT [facility] Last Admin: 02/28/23 09:18 Dose: 3 ml Documented By: JACQUI Trimethoprim/Sulfamethoxazole (Sulfamethox/Trimeth 800/160 Tablet) 1 tab PO DAILY [facility] Last Admin: 02/28/23 09:19 Dose: 1 tab Documented By: JACQUI Labs 02/27/23 15:39 02/27/23 06:09 Labs: Laboratory Results - last 24 hr 02/27/23 02/28/23 15:39 09:22 MCV 84.1 MCH 28.3 MCHC 33.6 RDW 17.6 H Plt Count 130 L MPV 11.0 Absolute Nucleated RBC 0.000 Nucleated RBC % (auto) 0.0 Blood Type O Positive Antibody Screen NEGATIVE Crossmatch See Detail Assessment and Plan (1) Anemia: Status: Acute (2) Orthostasis: Status: Acute (3) Moderate protein malnutrition: Status: Acute (4) Hypokalemia: Status: Acute Plan 77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 Syncope 2/2 Orthostatic hypotension Hold IVF for developing edema Hold BP meds Midodrine, Fludricortisone Repeat orthostatics in am Vomiting, diarrhea related to PO liquid potassium Symptomatic measures Acute hypokalemia replacement given follow BMP Pancytopenia due to chemotherpay will transfuse 1 unit prbc Moderate protein malnutrition Added ensure Gastroesophageal reflux disease PPI Mixed hyperlipidemia statin Chronic pain with chronic opioid use Continue oxycodone p.r.n. DVT prophylaxis: Mechanical. Defer Lovenox in the setting of thrombocytopenia Full code. reason for continued hospitalization:anemia, weakness, transfusing and monitoring Time Spent With Patient Time: Total time managing care of this patient today ____ minutes. Quality Stroke Does the patient have a stroke diagnosis?: No VTE Prior VTE?: No VTE Risk Level:: Medical - moderate - high VTE Device Contraindication: N/A - Device Ordered VTE Drug Contraindication: Treatment Not Indicated
--- NOTE | 2023-02-28 13:58 | MHC.CM.PN ---
EMR reviewed and per MD rounds, pt is not medically cleared for D/C due to anemia and requiring a transfusion today, pt will likely be ready for D/C tomorrow. CM will continue to follow.
[2023-02-28] MEDS: Loperamide HCl 2 MG CAPSULE PO (21:25)
[2023-02-28] MEDS: Atorvastatin Calcium 80 MG TABLET PO (21:25)
[2023-02-28] MEDS: Melatonin 3 MG TABLET 6 MG PO (21:25)
[2023-03-01 03:12] VITALS: BP 95/54; PULSE 91; RESP 20; TEMP 36.6; O2SAT 95
[2023-03-01 07:25] LABS: Hemoglobin 8.6 g/dl (12.0-16.0); Mean Corpuscular HGB Conc 34.4 g/dl (31.0-35.0); Mean Corpuscular Hemoglobin 28.9 pg (27.0-33.0); Mean Corpuscular Volume 83.9 fL (80.0-98.0); Mean Platelet Volume 11.2 fL (9.4-12.3); Platelet Count 140 X10*3/uL (160-400); Red Blood Count 2.98 X10*6/uL (4.20-5.50); Red Cell Distribution Width 16.5 % (11.0-16.0); White Blood Count 8.6 X10*3/uL (4.8-10.8)
[2023-03-01 08:00] VITALS: BP 92/53; PULSE 69; RESP 16; TEMP 37; O2SAT 100
[2023-03-01 08:10] LABS: Anion Gap 11 (12-20); Blood Urea Nitrogen 6 mg/dL (9-16); Calcium 7.8 mg/dL (8.4-10.2); Carbon Dioxide 23 mmol/L (22-29); Chloride 111 mmol/L (96-108); Creatinine Clr Calc Pharmacy 54.5; Estimated Glomerular Filt Rate > 60; Glucose Fasting 76 mg/dL (60-99); Potassium 2.5 mmol/L (3.3-5.1); Sodium 142 mmol/L (135-145)
[2023-03-01 08:24] LABS: Magnesium 1.5 mg/dL (1.6-2.6)
[2023-03-01] MEDS: Potassium Chloride ER 20 MEQ TAB.ER.PRT 40 MEQ PO (10:04)
[2023-03-01] MEDS: Dicyclomine HCl 10 MG CAPSULE PO ×3 (10:05→18:30)
[2023-03-01] MEDS: 0.9 % Sodium Chloride Flush 3 ML SYRINGE IVFLUSH ×2 (10:05→15:09)
[2023-03-01] MEDS: Midodrine HCl 5 MG TABLET PO ×3 (10:05→20:03)
[2023-03-01] MEDS: Sulfamethox/Trimeth 800/160 TABLET 1 TAB PO (10:05)
[2023-03-01] MEDS: Fludrocortisone Acetate 0.1 MG TABLET PO (10:16)
--- NOTE | 2023-03-01 10:54 | P.CNHO_ITS ---
Subjective - Subjective Chief complaint: Consult for: Gastric lymphoma. Patient: new to practice Consult date: 03/01/23 Primary Care Provider: Mis Gutierrez MD Medical Summary: DIAGNOSIS: GASTRIC LYMPHOMA. SYNCOPE. ANEMIA. HPI - Consult Narrative Reason for consult: consult for: 1. Syncope. 2. Anemia. 3. Gastric lymphoma. 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 She stated she tried to get up and got disease/lightheadedness and fell. She passed out for about a minute. No chest discomfort or palpitations prior to the fall. No rhythmic jerking movement of extremities. She did hit her head. Her last chemotherapy session for gastric lymphoma was earlier in the month. No fever, chills, chest discomfort, palpitations, shortness of breath, abdominal pain, changes in urinary or bowel habits. Patient denies vomiting or diarrhea. In the emergency department, orthostatic vital signs noted to be positive Review of Systems 2 Constitutional: Constitutional: Reports fatigue, Reports lethargy and Reports weakness ENT: Reports dizziness Cardiovascular: Cardiovascular: Reports no additional cardiovascular complaints and Reports syncope Respiratory: Respiratory: Reports no additional respiratory complaints Gastrointestinal: Gastrointestinal: Reports no additional gastrointestinal complaints Genitourinary: Genitourinary: Reports no additional female genitourinary complaints Neurologic: Reports dizziness, Reports syncope and Reports weakness Endocrine: Endocrine: Reports fatigue PMFSH Medical History: mixed hyperlipidemia. Anemia Abnormal CT of the abdomen Stomach cancer Kidney disease Asthma Family history: No family history of early CAD Surgical History: Tubal ligation status History of bladder surgery History of cholecystectomy Social History: Household Members: Family Housing: Apartment Do you presently have visiting nurse or other home services: No Alcohol intake: never Patient Tobacco Use Status: Never used Tobacco Advance Directives: Yes Advance Directives on File: Yes e Review of Systems - Constitutional Reports no additional constitutional complaints, Denies fever(s), Reports weakness, Reports weight loss - Eyes Reports no additional eye complaints - ENT Reports no additional ear, nose, mouth, and throat complaints - Cardiovascular Reports no additional cardiovascular complaints - Respiratory Reports no additional respiratory complaints - Gastrointestinal Reports no additional gastrointestinal complaints - Genitourinary Reports no additional female genitourinary complaints - Musculoskeletal Reports no additional musculoskeletal complaints - Integumentary/Breasts Skin/Breast: Reports no additional skin complaints - Neurologic Reports dizziness, Reports syncope, Denies frequent falls, Denies headache(s), Reports weakness - Psychiatric Reports no additional psychiatric complaints - Endocrine Reports no additional endocrine complaints - Hematologic/Lymphatic Reports no additional hematologic/lymphatic complaints - Allergic/Immunologic Reports no additional allergic/immunologic complaints Oncology Screenings - ECOG Performance Status ECOG Performance Status: 1 [facility] Medical History: Medical History (Last Reviewed 02/23/23 @ 21:27 by Michael Staton MD) Abnormal CT of the abdomen Anemia Asthma Kidney disease Stomach cancer Functional capacity: uses cane/walker Patient : No Surgical History: Surgical History (Last Reviewed 02/23/23 @ 21:27 by Michael Staton MD) History of bladder surgery History of cholecystectomy Tubal ligation status Social History: Social History (Last Reviewed 02/23/23 @ 21:27 by Michael Staton MD) Living Situation History: Household Members: Children Housing: Apartment Do you presently have visiting nurse or other home services: No Alcohol History Details: 1. How often do you have a drink containing alcohol?: a. Never AUDIT-C Alcohol total score: 0 Currently Displaying Signs/Symptoms of Alcohol Withdrawal: No Tobacco History: Patient Tobacco Use Status: Never used Tobacco e-Cigarette/Vaping Use: Never Used Substance Use History: Use of substances other than those prescribed or required for medical reasons : No Currently Displaying Signs/Symptoms of Drug Intoxication Withdrawal: No Domestic Abuse History: Have you been hit, kicked, punched, or otherwise hurt by someone within the past year? If so, by whom?: No Do you feel safe in your current relationship?: Yes Is there a partner from a previous relationship who is making you feel unsafe now?: No Are you made to feel afraid or neglected: No Advance Directives: Advance Directives: Yes Advance Directives on File: Yes Advance Directives Date on File: 02/12/20 Homicidal Assessment: Do you have thoughts of harming others: None Nutrition Assessment: Recently lost weight without trying: Yes How much weight loss: 2-13 pounds Eating poorly because of decreased appetite: Yes Nutrition screen score: 4 Nutrition Risks: No Nutritional Risk Patient : No : No Occupation Assessmet: service: No 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al status: disabled 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: r handed Home Medications and Allergies Current Medications: Current Medications Acetaminophen (Acetaminophen 325 Mg Tablet) 650 mg PO Q6H PRN PRN Reason: Pain, Mild (Pain Scale 1-3) Last Admin: 02/27/23 20:35 Dose: 650 mg Albuterol Sulfate (Albuterol Sulfate (0.083%) 2.5 Mg/3 Ml Vial.Neb) 2.5 mg INHALE Q4H PRN PRN Reason: Wheezing Albuterol Sulfate (Albuterol Sulfate 90 Mcg 8 Gm Inhaler) 2 puff INHALE Q4H PRN PRN Reason: Shortness Of Breath Or Wheezing Atorvastatin Calcium (Atorvastatin Calcium 80 Mg Tablet) 80 mg PO BEDTIME [facility] Last Admin: 02/28/23 21:25 Dose: 80 mg Dicyclomine HCl (Dicyclomine Hcl 10 Mg Capsule) 10 mg PO TIDAC [facility] Last Admin: 03/01/23 10:05 Dose: 10 mg Fludrocortisone Acetate (Fludrocortisone Acetate 0.1 Mg Tablet) 0.1 mg PO DAILY [facility] Last Admin: 03/01/23 10:16 Dose: 0.1 mg Fluticasone Propionate (Fluticasone Propionate Nasal 16 Gm [place]) 1 spray NOSTRIL-B BID PRN PRN Reason: Allergy Symptoms Potassium Chloride (Potassium Chloride/H20) 10 meq in 100 mls @ 100 mls/hr IV Q1H [facility] Stop: 03/01/23 12:14 Loperamide HCl (Loperamide Hcl 2 Mg Capsule) 2 mg PO Q4H PRN PRN Reason: Diarrhea Last Admin: 02/28/23 21:25 Dose: 2 mg Loratadine (Loratadine 10 Mg Tablet) 10 mg PO DAILY PRN PRN Reason: Allergic Symptoms Melatonin (Melatonin 3 Mg Tablet) 6 mg PO BEDTIME PRN PRN Reason: Insomnia Last Admin: 02/28/23 21:25 Dose: 6 mg Midodrine (Midodrine Hcl 5 Mg Tablet) 5 mg PO TID [facility] Last Admin: 03/01/23 10:05 Dose: 5 mg Omeprazole (Omeprazole 20 Mg Capsule.Dr) 20 mg PO DAILY@0630 [facility] Last Admin: 03/01/23 10:01 Dose: Not Given Ondansetron HCl (Ondansetron Hcl 4 Mg/2 Ml Vial) 4 mg IVPUSH Q8H PRN PRN Reason: Nausea and Vomiting Polyethylene Glycol (Polyethylene Glycol 3350 17 Gm Powd.Pack) 17 gm PO DAILY PRN PRN Reason: constipation Sodium Chloride (0.9 % Sodium Chloride Flush 3 Ml Syringe) 3 ml IVFLUSH QSHIFT [facility] Last Admin: 03/01/23 10:05 Dose: 3 ml Trimethoprim/Sulfamethoxazole (Sulfamethox/Trimeth 800/160 Tablet) 1 tab PO DAILY [facility] Last Admin: 03/01/23 10:05 Dose: 1 tab Home Medications Medication Instructions Recorded Confirmed Type albuterol sulfate 90 mcg/actuation 2 puff inhalation Q4H PRN 10/10/21 02/23/23 History aerosol inhaler Shortness Of Breath Or Wheezing atorvastatin 80 mg tablet 80 mg PO QPM 10/10/21 02/23/23 History cholecalciferol (vitamin D3) 125 125 mcg PO DAILY 10/10/21 02/23/23 History mcg (5,000 unit) tablet furosemide 20 mg tablet 20 mg PO DAILY PRN Edema 10/10/21 02/23/23 History loratadine 10 mg tablet 10 mg PO DAILY PRN Allergic 10/10/21 02/23/23 History Symptoms omeprazole 20 mg capsule,delayed 20 mg PO DAILY 10/10/21 02/23/23 History release fluticasone propionate 50 1 spray intranasal BID PRN Allergy 11/25/22 02/23/23 History mcg/actuation nasal Symptoms spray,suspension albuterol sulfate 2.5 mg/3 mL 2.5 mg inhalation Q4H PRN Wheezing 01/29/23 02/23/23 History (0.083 %) solution for nebulization dexamethasone 4 mg tablet 4 mg PO BID PRN day 2 or 3 of chemo 01/29/23 02/23/23 History prednisone 20 mg tablet 60 mg PO DAILY PRN day 1-5 of chemo 01/29/23 02/23/23 History sulfamethoxazole 800 1 tab PO DAILY 02/23/23 02/23/23 History mg-trimethoprim 160 mg tablet Allergies Allergy/AdvReac Type Severity Reaction Status Date / Time codeine [CODEINE] Allergy Intermediate RASH Verified 01/10/23 11:02 ibuprofen [From MOTRIN] Allergy Intermediate RASH Verified 01/10/23 11:02 Penicillins [PENICILLINS] Allergy Intermediate RASH Verified 01/10/23 11:02 motrin Allergy Unknown rash, Uncoded 01/10/23 11:02 swelling PCN Allergy Unknown rash, Uncoded 01/10/23 11:02 swelling Physical Exam Vital signs: Vital Signs Temp 98.6 F 03/01/23 08:00 Pulse 69 03/01/23 08:00 Resp 16 03/01/23 08:00 BP 92/53 L 03/01/23 08:00 Pulse Ox 100 03/01/23 08:00 O2 Del Method Room Air 03/01/23 08:00 Intake & Output 02/28/23 03/01/23 03/01/23 18:59 06:59 18:59 Intake Total 810 / 1430 620 / 1430 Output Total 0 / 0 Balance 810 / 1430 620 / 1430 Urine Output (Average ml/kg/hr) 0.00 Intake: Intake, Oral Amount 360 / 980 620 / 980 Intake (Blood Product) Amount 350 / 350 Red Blood Cells (E0382) Unit 350 / 350 [id number] Intake, IV Amount 100 / 100 0.9 % Sodium Chloride 100 ml @ 100 / 100 100 mls/hr IV ONCE ONE Rx#: [id number] Output: Output, Urine Amount 0 / 0 Other: Meal Refused No NPO No Breakfast % Eaten 25% Lunch % Eaten 25% Dinner % Eaten 50% Number of Unmeasured Voids 1 1 Number of Bowel Movements 1 1 Urine Bedside Commode Urine Color Yellow Stool Incontinent Bedside Commode Stool Amount Large Small Stool Color Dark Brown Brown Stool Consistency Loose Liquid Weight 45.9 kg - Constitutional Present: mild distress Hem/Onc Consult Result - Labs CBC & Chem 7: 03/01/23 06:30 03/01/23 06:30 Labs: Short CBC 03/01/23 Range/Units 06:30 WBC 8.6 (4.8-10.8) X10*3/uL Hgb 8.6 L D (12.0-16.0) g/dl Hct 25.0 L (37.0-47.0) % Plt Count 140 L (160-400) X10*3/uL BMP 03/01/23 06:30 Sodium 142 Potassium 2.5 L* Chloride 111 H Carbon Dioxide 23 BUN 6 L Creatinine 0.63 Calcium 7.8 L Assessment and Plan Patient Active problem list reviewed?: Yes (1) Gastric lymphoma Status: Acute Assessment and plan: 77-year-old lady with recent diagnosis of diffuse large B-cell lymphoma of the stomach. She underwent staging workup: PET scan from 01/16 revealed: 1. Asymmetric increase tracer avidity is noted with SUV max of 6.4 without evidence of any discrete mass involving the left tonsillar fossa, may represent reactive changes. 2. Significant mural thickening associated with intense FDG avidity involving the fundus and body of the stomach with SUV max of 20.7 consistent with gastric involvement in this patient with diffuse large B-cell lymphoma. Specific note is made of perigastric solid intense FDG avid lymph nodes within the lesser omentum/gastrohepatic ligament region as well as in the region of the common hepatic artery. The dominant lymph node measures 4.2 x 2.1 cm with SUV max of 45.4. 3. Note is also made of intense FDG avidity associated with circumferential mural thickening of the cecum and adjacent proximal ascending colon with SUV max of 11.2, for which direct visualization/colonoscopy is recommended for further clarification. 4. Apparent mild increase tracer avidity throughout the entire axial skeleton, may represent hyperplastic marrow versus bone marrow infiltration or combination thereof. 5. No evidence of any lung parenchymal or liver or splenic involvement. A baseline echocardiogram, revealed normal cardiac function. Bone marrow biopsy was: Negative. CSF cytology was: Negative. According to the NCCN guidelines from 09/26, options include R-CHOP x3 followed by ISRT, for non bulky disease:<7.5 cm. Or R-CHOP x6 +/- ISRT, for bulky >7.5 cm. A relatively new regimen is the kadeem-R-CHP, which replaces the anti micro tubule drug Vincristine in R-CHOP with the novel agent Polatuzumab Vedotin. Kadeem is an antibody drug conjugate targeting the B-cell surface marker CD 79 be which is ubiquitously expressed in mature B-cell lymphomas. She had a Port-A-Cath placed on 01/01, to facilitate the chemotherapy. She was started on 1st cycle of chemotherapy with kadeem-R-CHP, regimen on 01/22. She tolerated it reasonably well. She did get the Neulasta to prevent chemotherapy-induced neutropenia. She was admitted on 02/12 with complaints of acute on chronic epigastric abdominal pain, nausea, poor oral intake, fatigue, weakness, dyspnea with exertion. She has difficulties eating due to gastric mass. Abdominal CT in the ER does not show any evidence of acute GI bleed, chest x- ray without consolidation or effusion. She had cycle 2 of chemotherapy on 02/13. On 02/23, she presented with lightheadedness and a syncopal episode. Orthostatic blood pressure readings noted. She was noted to be significantly anemic. She has been treated with IV hydration and blood transfusion. It appears that she is on the mend. PLAN: Would continue supportive care as you are doing. Hopefully she will be able to go home in a day or so. Would need to adjust her chemotherapy with the next cycle. Thank you, CC: Mis collazo. - Time Spent With Patient Time Spent with Patient (in minutes): 30
[2023-03-01 11:27] VITALS: BP 86/52; PULSE 77; RESP 16; TEMP 36.5; O2SAT 100
--- NOTE | 2023-03-01 11:33 | HO.PM.IMPN ---
Subjective Subjective Date of Service: 03/01/23 Interval History: diarrhea Physical Exam Vital Signs: Vital Signs: Last Vital Signs Temp 97.7 F 03/01/23 11:27 Pulse 77 03/01/23 11:27 Resp 16 03/01/23 11:27 BP 86/52 L 03/01/23 11:27 Pulse Ox 100 03/01/23 11:27 O2 Del Method Room Air 03/01/23 11:27 BMI result Body Mass Index 19.8 Const: Other: Constitutional : Awake, interactive, not in distress Neck : Normal inspection, Supple Cardiovascular : RRR, no JVP, no lower extremity edema Respiratory : good bilateral air entry, no crackles, wheezes or rhonchi Gastrointestinal: soft, lax, Normal bowel sounds, Non tender Skin : Warm, Dry Neurological : Alert & oriented x3, No focal deficit Objective Data Active Medications Acetaminophen (Acetaminophen 325 Mg Tablet) 650 mg PO Q6H PRN PRN Reason: Pain, Mild (Pain Scale 1-3) Last Admin: 02/27/23 20:35 Dose: 650 mg Documented By: DANIELLE Albuterol Sulfate (Albuterol Sulfate (0.083%) 2.5 Mg/3 Ml Vial.Neb) 2.5 mg INHALE Q4H PRN PRN Reason: Wheezing Albuterol Sulfate (Albuterol Sulfate 90 Mcg 8 Gm Inhaler) 2 puff INHALE Q4H PRN PRN Reason: Shortness Of Breath Or Wheezing Atorvastatin Calcium (Atorvastatin Calcium 80 Mg Tablet) 80 mg PO BEDTIME [facility] Last Admin: 02/28/23 21:25 Dose: 80 mg Documented By: TACHO Dicyclomine HCl (Dicyclomine Hcl 10 Mg Capsule) 10 mg PO TIDAC [facility] Last Admin: 03/01/23 10:05 Dose: 10 mg Documented By: CECI Fludrocortisone Acetate (Fludrocortisone Acetate 0.1 Mg Tablet) 0.1 mg PO DAILY [facility] Last Admin: 03/01/23 10:16 Dose: 0.1 mg Documented By: ECCI Fluticasone Propionate (Fluticasone Propionate Nasal 16 Gm [place]) 1 spray NOSTRIL-B BID PRN PRN Reason: Allergy Symptoms Potassium Chloride (Potassium Chloride/H20) 10 meq in 100 mls @ 100 mls/hr IV Q1H [facility] Stop: 03/01/23 12:14 Loperamide HCl (Loperamide Hcl 2 Mg Capsule) 2 mg PO Q4H PRN PRN Reason: Diarrhea Last Admin: 02/28/23 21:25 Dose: 2 mg Documented By: TACHO Loratadine (Loratadine 10 Mg Tablet) 10 mg PO DAILY PRN PRN Reason: Allergic Symptoms Melatonin (Melatonin 3 Mg Tablet) 6 mg PO BEDTIME PRN PRN Reason: Insomnia Last Admin: 02/28/23 21:25 Dose: 6 mg Documented By: TACHO Midodrine (Midodrine Hcl 5 Mg Tablet) 5 mg PO TID [facility] Last Admin: 03/01/23 10:05 Dose: 5 mg Documented By: CECI Omeprazole (Omeprazole 20 Mg Capsule.Dr) 20 mg PO DAILY@0630 [facility] Last Admin: 03/01/23 10:01 Dose: Not Given Documented By: CCEI Non-Admin Reason: NOT MY PT AT THIS TIME Ondansetron HCl (Ondansetron Hcl 4 Mg/2 Ml Vial) 4 mg IVPUSH Q8H PRN PRN Reason: Nausea and Vomiting Polyethylene Glycol (Polyethylene Glycol 3350 17 Gm Powd.Pack) 17 gm PO DAILY PRN PRN Reason: constipation Sodium Chloride (0.9 % Sodium Chloride Flush 3 Ml Syringe) 3 ml IVFLUSH QSHIFT [facility] Last Admin: 03/01/23 10:05 Dose: 3 ml Documented By: CECI Trimethoprim/Sulfamethoxazole (Sulfamethox/Trimeth 800/160 Tablet) 1 tab PO DAILY [facility] Last Admin: 03/01/23 10:05 Dose: 1 tab Documented By: CECI Labs 03/01/23 06:30 03/01/23 06:30 Labs: Laboratory Results - last 24 hr 02/28/23 03/01/23 09:22 06:30 MCV 83.9 MCH 28.9 MCHC 34.4 RDW 16.5 H Plt Count 140 L MPV 11.2 Absolute Nucleated RBC 0.000 Nucleated RBC % (auto) 0.0 Anion Gap 11 L Estim Creat Clear Calc 54.5 Estimated GFR > 60 Fasting Glucose 76 Calcium 7.8 L Magnesium 1.5 L Crossmatch See Detail Microbiology Microbiology Results: Microbiology 02/23/23 18:27 Blood Culture - Final Blood - Venous No growth after 5 days. 02/23/23 16:48 Blood Culture - Final Blood - Venous No growth after 5 days. 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 Syncope 2/2 Orthostatic hypotension Hold BP meds Midodrine, Fludricortisone Repeat orthostatics in am restarting ivf Vomiting, diarrhea related to PO liquid potassium Symptomatic measures Acute hypokalemia replacement follow BMP Pancytopenia due to chemotherpay transfused 1 unit prbc 02/28/23 hgb responded appropriately diarrhea ivf, check stool pcr Moderate protein malnutrition Added ensure Gastroesophageal reflux disease PPI Mixed hyperlipidemia statin Chronic pain with chronic opioid use Continue oxycodone p.r.n. DVT prophylaxis: restart lovenox, thrombocytopenia improved Full code. reason for continued hospitalization:anemia, weakness, hypotension Time Spent With Patient Time: Total time managing care of this patient today ____ minutes. Quality Stroke Does the patient have a stroke diagnosis?: No VTE Prior VTE?: No VTE Risk Level:: Medical - moderate - high VTE Device Contraindication: N/A - Device Ordered VTE Drug Contraindication: Treatment Not Indicated
[2023-03-01] MEDS: Potassium Chloride/H20 10 MEQ/100 ML PIGGYBACK 100 MEQ IV ×4 (12:02→17:32)
--- NOTE | 2023-03-01 12:37 | P.CDIM_ITS ---
PROVIDER RESPONSE TEXT: To clarify, the appropriate diagnosis supported by the clinical indicators: Hypomagnesemia QUERY TEXT: PHYSICIAN'S DOCUMENTATION REQUEST Date of Query: 03/01/2023 12:29 PM EDT Patient Name: Delmy Ann Admit Date: 02/25/2023 Dear Cahrly Willson, A review of the medical record indicates additional documentation may be needed. Please review below and update the documentation accordingly. Clinical Indicators: LAB FINDINGS: magnesium 1.5 L IV Magnesium Sulfate once Based on the above, is there a diagnosis that correlates with these lab findings: Hypomagnesemia Labs indicate a diagnosis of (please specify) Other (explain)Clinically unable to determine (explain)Thank you, Elly Guerrero, CCS, CDIS Use of terms such as suspected, likely, concern for, or probable (associated with a specific diagnosi s that is being evaluated, monitored, or treated as if it exists) are acceptable and can be coded in the inpatient se tting, when documented at the time of discharge. Please use your independent medical judgment in providing your response. THIS QUERY IS PART OF THE PERMANENT MEDICAL RECORD
[2023-03-01] MEDS: Magnesium Sulfate/H2O 2 GM/50 ML PIGGYBACK IV (13:32)
[2023-03-01] MEDS: Enoxaparin Sodium 40 MG/0.4 ML SYRINGE SUBCUT (13:32)
[2023-03-01] MEDS: 0.9 % Sodium Chloride 1,000 ML 100 ML IVCONT (15:15)
[2023-03-01 15:21] VITALS: BP 100/55; PULSE 77; RESP 20; TEMP 36.6; O2SAT 99
[2023-03-01 19:17] VITALS: BP 99/54; PULSE 66; RESP 20; TEMP 36.1; O2SAT 99
[2023-03-01] MEDS: Atorvastatin Calcium 80 MG TABLET PO (20:03)
[2023-03-02] VITALS: BP 107/55; PULSE 70; RESP 16; TEMP 36.6; O2SAT 99
[2023-03-02] MEDS: 0.9 % Sodium Chloride 1,000 ML 100 ML IVCONT (00:53)
[2023-03-02 03:22] VITALS: BP 102/57; PULSE 69; RESP 18; TEMP 36.9; O2SAT 99
[2023-03-02] MEDS: Omeprazole 20 MG CAPSULE.DR PO (05:40)
[2023-03-02 07:20] LABS: Hematocrit 24.8 % (37.0-47.0); Hemoglobin 8.5 g/dl (12.0-16.0); Mean Corpuscular HGB Conc 34.3 g/dl (31.0-35.0); Mean Corpuscular Hemoglobin 28.9 pg (27.0-33.0); Mean Corpuscular Volume 84.4 fL (80.0-98.0); Mean Platelet Volume 10.9 fL (9.4-12.3); Platelet Count 153 X10*3/uL (160-400); Red Blood Count 2.94 X10*6/uL (4.20-5.50); Red Cell Distribution Width 17.1 % (11.0-16.0); White Blood Count 9.5 X10*3/uL (4.8-10.8)
[2023-03-02 07:55] VITALS: BP 123/58; PULSE 73; RESP 16; TEMP 36.4; O2SAT 99
[2023-03-02 08:12] LABS: Anion Gap 10 (12-20); Blood Urea Nitrogen 4 mg/dL (9-16); Calcium 7.6 mg/dL (8.4-10.2); Carbon Dioxide 22 mmol/L (22-29); Chloride 113 mmol/L (96-108); Creatinine Clr Calc Pharmacy 58.2; Estimated Glomerular Filt Rate > 60; Glucose Fasting 74 mg/dL (60-99); Magnesium 1.8 mg/dL (1.6-2.6); Potassium 3.4 mmol/L (3.3-5.1); Sodium 142 mmol/L (135-145)
[2023-03-02 08:54] VITALS: BP 123/58; PULSE 73; O2SAT 99
[2023-03-02] MEDS: Fludrocortisone Acetate 0.1 MG TABLET PO (09:23)
[2023-03-02] MEDS: Midodrine HCl 5 MG TABLET PO (09:23)
[2023-03-02] MEDS: Dicyclomine HCl 10 MG CAPSULE PO ×2 (09:23→13:01)
[2023-03-02] MEDS: Sulfamethox/Trimeth 800/160 TABLET 1 TAB PO (09:23)
[2023-03-02] MEDS: 0.9 % Sodium Chloride Flush 3 ML SYRINGE IVFLUSH (09:24)
--- NOTE | 2023-03-02 09:44 | P.DS_ITS ---
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 Patient states she tried to get up and got disease/lightheadedness and fell. She was passed out for about a minute. No chest discomfort or palpitations prior to the fall. No rhythmic jerking movement of extremities. She did hit her head. Her last chemotherapy session for gastric lymphoma was earlier in the month. No fever, chills, chest discomfort, palpitations, shortness of breath, abdominal pain, changes in urinary or bowel habits. Patient denies vomiting or diarrhea. In the emergency department, orthostatic vital signs noted to be positive hospital course: Patient was admitted for syncope secondary to orthostatic hypotension. Her BP meds were held and she was started on midodrine and fludrocortisone as well as IV resuscitation. Orthostatics improved. Course also complicated by diarrhea which resolved with symptomatic measures. For acute hypokalemia and hypomagnesemia this was replaced. For pancytopenia due to chemotherapy patient received 1 unit PRBC and hemoglobin responded appropriately. For moderate protein malnutrition ensure was added. The GERD was continue PPI for hyperlipidemia was cared statin. Patient is feeling better will be discharged home. Time Spent with Patient Time attestation: Total time managing care of this patient today ____ minutes. Discharge coordination time: Greater than 30 minutes Quality: Safe Use of Opioids Does Pt have an Active Cancer Diagnosis on the Problem List?: Yes Opioid Measure Date for [facility] Report: 02/01/23 Opioid Measure Time for [facility] Report: 06:48 Quality: Stroke Does the patient have a stroke diagnosis?: No Physical Exam Vital Signs: Vital Signs: Last Vital Signs Temp 97.6 F 03/02/23 07:55 Pulse 73 03/02/23 08:54 Resp 16 03/02/23 07:55 BP 123/58 L 03/02/23 08:54 Pulse Ox 99 03/02/23 08:54 O2 Del Method Room Air 03/02/23 07:55 BMI result Body Mass Index 19.8 Const: Other: Constitutional : Awake, interactive, not in distress Neck : Normal inspection, Supple Cardiovascular : RRR, no JVP, no lower extremity edema Respiratory : good bilateral air entry, no crackles, wheezes or rhonchi Gastrointestinal: soft, lax, Normal bowel sounds, Non tender Skin : Warm, Dry Neurological : Alert & oriented x3, No focal deficit DS: Data Data Completed and Pending Completed studies during hospitalization [Text1]: Procedures Excision of Stomach, Pylorus, Via Natural or Artificial Opening Endoscopic, Diagnostic (11/25/22) Transfusion of Nonautologous Red Blood Cells into Peripheral Vein, Percutaneous Approach (01/29/23) Labs on day of discharge: Laboratory Results - last 24 hr 03/02/23 06:30 WBC 9.5 RBC 2.94 L Hgb 8.5 L Hct 24.8 L MCV 84.4 MCH 28.9 MCHC 34.3 RDW 17.1 H Plt Count 153 L MPV 10.9 Absolute Nucleated RBC 0.000 Nucleated RBC % (auto) 0.0 Sodium 142 Potassium 3.4 D Chloride 113 H Carbon Dioxide 22 Anion Gap 10 L BUN 4 L Creatinine 0.59 Estim Creat Clear Calc 58.2 Estimated GFR > 60 Fasting Glucose 74 Calcium 7.6 L Magnesium 1.8 Discharge Plan Discharge Anticipated Discharge Date/Time: 03/02/23 09:40 Patient Disposition: Home, Self-Care Discharge Diagnosis: diarrhea, orthostatic Referrals: Dallin CAMPBELL [Outside] - 1 Week Mis Gutierrez MD [Primary Care Provider] - 1 Week Discharge Medications: New midodrine 5 mg Tablet 5 mg PO TID Qty: 90 0RF fludrocortisone 0.1 mg Tablet 0.1 mg PO DAILY Qty: 30 0RF Continued fluticasone propionate 50 mcg/actuation spray,suspension 1 spray intranasal BID PRN (Reason: Allergy Symptoms) sulfamethoxazole-trimethoprim 800-160 mg tablet 1 tab PO DAILY ondansetron 8 mg tablet,disintegrating 8 mg PO Q8H PRN (Reason: Nausea) Qty: 30 3RF albuterol sulfate 2.5 mg /3 mL (0.083 %) solution for nebulization 2.5 mg inhalation Q4H PRN (Reason: Wheezing) dexamethasone 4 mg tablet 4 mg PO BID PRN (Reason: day 2 or 3 of chemo) Rx Instructions: Take 4 mg p.o. b.i.d. days 2 and 3 of chemo, Q 21 days. prednisone 20 mg tablet 60 mg PO DAILY PRN (Reason: day 1-5 of chemo) Rx Instructions: take 60 mg p.o. daily days 1-5 of chemotherapy Q 21 days. polyethylene glycol 3350 17 gram Powder In Packet 17 g PO DAILY PRN (Reason: constipation) Qty: 30 0RF albuterol sulfate 90 mcg/actuation HFA aerosol inhaler 2 puff inhalation Q4H PRN (Reason: Shortness Of Breath Or Wheezing) atorvastatin 80 mg tablet 80 mg PO QPM omeprazole 20 mg capsule,delayed release(DR/EC) 20 mg PO DAILY cholecalciferol (vitamin D3) 125 mcg (5,000 unit) tablet 125 mcg PO DAILY loratadine 10 mg tablet 10 mg PO DAILY PRN (Reason: Allergic Symptoms) Discontinued furosemide 20 mg tablet 20 mg PO DAILY PRN (Reason: Edema) Discharge Orders: Discharge Order (Routine); Ordered 03/02/23 Ordered By: Charly Willson Diet: Advance to usual diet Activity on Discharge: As tolerated Stand Alone Forms: Patient Portal Discharge page Care Plan Goals: recovery Health Concerns: orthostatic, diarrhea Plan of Treatment: midodrine, florinef, imodium as needed Assessment: see above Discharge Date/Time: 03/02/23 13:56
[2023-03-02] MEDS: Potassium Chloride ER 20 MEQ TAB.ER.PRT 40 MEQ PO (09:47)
[2023-03-02 11:22] VITALS: BP 126/59; PULSE 73; RESP 16; TEMP 37.2; O2SAT 98
[2023-03-02] MEDS: Enoxaparin Sodium 40 MG/0.4 ML SYRINGE SUBCUT (13:01)
[2023-03-02 13:10] LABS: Lactate Dehydrogenase 137 U/L (122-220)
--- NOTE | 2023-03-02 14:27 | MHC.CM.PN ---
Second IMM given 03/02. Pt medically cleared for D/C home with resumption of [facility]. Pts son to transport her home.
== END 2023-03-02 13:56 | disposition home or self-care (01) | DRG 312 ==
LOC: HO.ED 20:03 → HO.EDOVER 21:45 → HO.IMC 02-24 07:54
PROVIDERS: Physician Assistant; Physician Assistant Medical; Student in an Organized Health Care Education/Training Program; Admitting Provider Student in an Organized Health Care Education/Training Program; Emergency Provider Emergency Medicine; PCP Family Medicine; Visit Provider Internal Medicine
DX: I95.1 Orthostatic hypotension (principal); D61.810 Antineoplastic chemotherapy induced pancytopenia; E44.0 Moderate protein-calorie malnutrition; Z68.1 Body mass index [BMI] 19.9 or less, adult; C83.33 Diffuse large B-cell lymphoma, intra-abdominal lymph nodes; K52.1 Toxic gastroenteritis and colitis; E87.6 Hypokalemia; K21.9 Gastro-esophageal reflux disease without esophagitis; E83.42 Hypomagnesemia; T50.3X5A Adverse effect of electrolytic, caloric and water-balance agents, initial encounter; E78.2 Mixed hyperlipidemia; G89.29 Other chronic pain; T45.1X5A Adverse effect of antineoplastic and immunosuppressive drugs, initial encounter; Z20.822 Contact with and (suspected) exposure to COVID-19; Z79.899 Other long term (current) drug therapy
CPT/HCPCS: 0241U; 36415; 70450; 71045; 72125; 80048; 80053; 81003; 82272; 83605; 83615; 83735; 84484; 85007; 85027; 85610; 85730; 86850; 86900; 86901; 86923; 87040; 93005; 97116; 97161; 99285; J1650; J3475; P9016

== ENCOUNTER → 2023-02-23 15:38 | Outpatient (BNV) | payer OTHER, SELFPAY | PROVIDERS: Emergency Provider Emergency Medicine; Visit Provider Student in an Organized Health Care Education/Training Program | DX: D64.9 Anemia, unspecified (principal); I95.1 Orthostatic hypotension; E44.0 Moderate protein-calorie malnutrition; E87.6 Hypokalemia | CPT/HCPCS: 99222; 99232; 99233; 99239 ==

== ENCOUNTER → 2023-02-25 12:57 | Outpatient (BNV) | payer OTHER, SELFPAY | PROVIDERS: Admitting Provider Student in an Organized Health Care Education/Training Program; Emergency Provider Emergency Medicine; PCP Family Medicine; Visit Provider Internal Medicine Medical Oncology | DX: C85.80 Other specified types of non-Hodgkin lymphoma, unspecified site (principal); D69.59 Other secondary thrombocytopenia; D64.81 Anemia due to antineoplastic chemotherapy | CPT/HCPCS: 99222 ==

== ENCOUNTER 2023-03-03 13:08 | Emergency (ER) | payer OTHER, SELFPAY ==
[2023-03-03 13:18] VITALS: BP 109/70; PULSE 83; RESP 16; TEMP 35.8; O2SAT 98; BMI 19.6
--- NOTE | 2023-03-03 13:20 | ED_ITS ---
HPI - General Adult General Stated complaint: needs port removed Source: patient and family Mode of arrival: ambulatory Limitations: language barrier (Mongolian-speaking examination scorer utilized) History of Present Illness HPI narrative: Patient is a 77-year-old female who presents emergency department her son. Per her son's report she was discharged yesterday from the hospital after an inpatient admission, with Port-A-Cath accessed to the right anterior chest, and it was not de-accessed at discharge. Advised by [facility] to come for removal. No physical complaints at this time. Related Data Home Medications Medication Instructions Recorded Confirmed albuterol sulfate 90 mcg/actuation 2 puff inhalation Q4H PRN 10/10/21 02/23/23 aerosol inhaler Shortness Of Breath Or Wheezing atorvastatin 80 mg tablet 80 mg PO QPM 10/10/21 02/23/23 cholecalciferol (vitamin D3) 125 125 mcg PO DAILY 10/10/21 02/23/23 mcg (5,000 unit) tablet loratadine 10 mg tablet 10 mg PO DAILY PRN Allergic 10/10/21 02/23/23 Symptoms omeprazole 20 mg capsule,delayed 20 mg PO DAILY 10/10/21 02/23/23 release fluticasone propionate 50 1 spray intranasal BID PRN Allergy 11/25/22 02/23/23 mcg/actuation nasal Symptoms spray,suspension albuterol sulfate 2.5 mg/3 mL 2.5 mg inhalation Q4H PRN Wheezing 01/29/23 02/23/23 (0.083 %) solution for nebulization dexamethasone 4 mg tablet 4 mg PO BID PRN day 2 or 3 of chemo 01/29/23 02/23/23 prednisone 20 mg tablet 60 mg PO DAILY PRN day 1-5 of chemo 01/29/23 02/23/23 sulfamethoxazole 800 1 tab PO DAILY 02/23/23 02/23/23 mg-trimethoprim 160 mg tablet Previous Rx's Medication Instructions Recorded polyethylene glycol 3350 17 gram 17 g PO DAILY PRN constipation #30 02/01/23 oral powder packet ea ondansetron 8 mg disintegrating 8 mg PO Q8H PRN Nausea #30 tabs 02/16/23 tablet fludrocortisone 0.1 mg tablet 0.1 mg PO DAILY #30 tabs 03/02/23 midodrine 5 mg tablet 5 mg PO TID #90 tabs 03/02/23 Allergies Allergy/AdvReac Type Severity Reaction Status Date / Time codeine [CODEINE] Allergy Intermediate RASH Verified 01/10/23 11:02 ibuprofen [From MOTRIN] Allergy Intermediate RASH Verified 01/10/23 11:02 Penicillins [PENICILLINS] Allergy Intermediate RASH Verified 01/10/23 11:02 motrin Allergy Unknown rash, Uncoded 01/10/23 11:02 swelling PCN Allergy Unknown rash, Uncoded 01/10/23 11:02 swelling PMFSH Past Medical History Attestation statement: The following information was validated with the patient. Source: old records reviewed Medical History Anemia Abnormal CT of the abdomen Stomach cancer Kidney disease Asthma Surgical History Tubal ligation status History of bladder surgery History of cholecystectomy Social History Social History Household Members: Children Housing: Apartment Do you presently have visiting nurse or other home services: No Alcohol intake: never Patient Tobacco Use Status: Never used Tobacco e-Cigarette/Vaping Use: Never Used Advance Directives Date on File: 02/12/20 service: No 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al status: disabled 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: r handed Physical Exam ED Appearance: Alert.?Oriented to person, place and time. No acute distress.?Normal affect.? Neck: Normal inspection.? Neck supple.?? CVS: Heart sounds normal. Normal heart rate and rhythm.? Pulses normal.?? Respiratory: No respiratory distress.? Lung sounds clear to auscultation bilate rally?? Abdomen: Soft and non-tender. Normoactive bowel sounds. ?? Skin: Skin warm and dry.? Normal skin color.? Extremities: No lower extremity edema.? Neuro: Moves all extremities spontaneously. Sensation intact bilaterally. Ambulates with normal steady gait. 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 Upon review she was admitted to the hospital 02/23/2023 and discharged 03/01/2023, treatment for syncope secondary to orthostatic hypotension, pancytopenia receiving 1 unit PRBC transfusion, hypokalemia, and malnutrition. I reviewed the discharge summary, there does not appear to be any indication that she would need to have been discharged with her port accessed. Port was de-accessed in the emergency department without complication. Independent Historian Clinical information obtained from an independent historian. History obtained from or confirmed by: Other (Son present who confirms history) External Record Review External record reviewed: Inpatient record Chronic Conditions Patient?s care impacted by: Other (Lymphoma) Discharge Plan Discharge Clinical Impression: Central vascular catheter in place upon arrival Patient Disposition: Home, Self-Care Additional Instructions: Your port was de-accessed in the emergency department today. Please feel free to return to emergency department any new symptoms or concerns. Prescriptions: No Action fluticasone propionate 50 mcg/actuation spray,suspension 1 spray intranasal BID PRN (Reason: Allergy Symptoms) sulfamethoxazole-trimethoprim 800-160 mg tablet 1 tab PO DAILY midodrine 5 mg Tablet 5 mg PO TID Qty: 90 0RF fludrocortisone 0.1 mg Tablet 0.1 mg PO DAILY Qty: 30 0RF ondansetron 8 mg tablet,disintegrating 8 mg PO Q8H PRN (Reason: Nausea) Qty: 30 3RF albuterol sulfate 2.5 mg /3 mL (0.083 %) solution for nebulization 2.5 mg inhalation Q4H PRN (Reason: Wheezing) dexamethasone 4 mg tablet 4 mg PO BID PRN (Reason: day 2 or 3 of chemo) Rx Instructions: Take 4 mg p.o. b.i.d. days 2 and 3 of chemo, Q 21 days. prednisone 20 mg tablet 60 mg PO DAILY PRN (Reason: day 1-5 of chemo) Rx Instructions: take 60 mg p.o. daily days 1-5 of chemotherapy Q 21 days. polyethylene glycol 3350 17 gram Powder In Packet 17 g PO DAILY PRN (Reason: constipation) Qty: 30 0RF albuterol sulfate 90 mcg/actuation HFA aerosol inhaler 2 puff inhalation Q4H PRN (Reason: Shortness Of Breath Or Wheezing) atorvastatin 80 mg tablet 80 mg PO QPM omeprazole 20 mg capsule,delayed release(DR/EC) 20 mg PO DAILY cholecalciferol (vitamin D3) 125 mcg (5,000 unit) tablet 125 mcg PO DAILY loratadine 10 mg tablet 10 mg PO DAILY PRN (Reason: Allergic Symptoms)
== END 2023-03-03 13:41 | disposition home or self-care (01) ==
PROVIDERS: Emergency Provider Student in an Organized Health Care Education/Training Program; PCP Family Medicine
DX: Z45.2 Encounter for adjustment and management of vascular access device (principal); C83.33 Diffuse large B-cell lymphoma, intra-abdominal lymph nodes; E78.2 Mixed hyperlipidemia; Z92.21 Personal history of antineoplastic chemotherapy
CPT/HCPCS: 99282; J1642

== ENCOUNTER 2023-03-09 13:59 | Outpatient (AMB) | payer OTHER, SELFPAY ==
--- NOTE | 2023-03-09 14:04 | A.OFFVIS_ITS ---
Intake Vital Signs 03/09/23 14:30 Weight 99 lb 3.328 oz BP 112/63 Blood Pressure Location Lt brachial Position Sitting Pulse 73 Intake Visit Reasons: Gastric carcinoma Intake Note: Delmy presents in the office for a gastric carcinoma. CC: She is here today because she has cancer of her stomach. Information Technology Teacher Name: Werner [id number] Allergies codeine [CODEINE] Allergy (Intermediate, Verified 03/09/23 14:22) RASH ibuprofen [From MOTRIN] Allergy (Intermediate, Verified 03/09/23 14:22) RASH Penicillins [PENICILLINS] Allergy (Intermediate, Verified 03/09/23 14:22) RASH motrin Allergy (Unknown, Uncoded 03/09/23 14:22) rash, swelling PCN Allergy (Unknown, Uncoded 03/09/23 14:22) rash, swelling HPI HPI Comments History of Present Illness Details This is a 77y.o F with PMH of gastric DLBCL diagnosed earlier this year, on felix-R-CHP through Dr Becerril, who has been referred for urgent consulta tion for anemia. To Recap: pt was seen in hospital by GI for abd pain, N,V, unintentional weight loss x [address] scan suggestive of greater curvature mass with lymphadenopathy. EGD 11/27/22 (Dr Caldwell): Stomach: A large polypoidal mass with central ulceration in the gastric body along the greater curvature extending from 36 to 58 cms and covering 75% of the gastric circumference. Moderate diffuse gastric erythema. Biopsies were obtained from the antrum to check for H pylori. Path: A. Stomach, antrum, biopsy: Antral-type mucosa within normal limits; no Helicobacter organisms seen. B. Stomach, mass, biopsy: Diffuse Large B-cell Lymphoma, non-germinal center type. Staging PET 01/16/23: ABDOMEN AND PELVIS: The stomach is abnormal. Marked mural thickening associated with intense FDG avidity is noted at the fundus and body of the stomach extending along both the greater as well as the lesser curvatures. The focus of dominant mural thickening measures approximately 2.6 cm with SUV max of 20.7 (104/223). There is no evidence of any gastric obstruction present. The pylorus of the stomach appear unremarkable. Corresponding to previously documented lobulated solid-appearing soft tissue confluent masses along the lesser curvature of the stomach in the region of the gastrohepatic ligament and adjacent part of the common hepatic artery show intense tracer avidity. The dominant solid mass seen at the level of the common hepatic artery measures approximately 4.2 x 2.1 cm with SUV max of 45.4 (115/223), most consistent with extensive local/regional lymph node disease extension. There are no additional tracer avid lymph nodes identified within the retroperitoneum or mesentery or pelvis or groin. Specific note is made of intense focal FDG avidity associated with mural thickening involving cecum and proximal ascending colon with SUV max of 11.2 (150/223), may also represent additional sites of disease involvement. Follow-up direct visualization/colonoscopy may be considered for further confirmation, if clinically appropriate. 03/09/23: s/p x3 cycles of felix-R-CHP. Course complicated by syncopal episode 2 weeks ago in the setting of pancytopenia. This was initially attributed to BM suppression from chemo however counts cont to decline this week as well. Pt received x2u PRBC transfusion on 03/07 after Hb dropped to 6.8. Currently, main CC is loss of appetite with early satiety, nausea and regurgitation. Reports has not been able to eat anything more than a couple of sips or bites or it comes back up. From chart review appears to have had weight loss of 20lbs in just the last 2 months. Last abd imaging is from Jan and at that time, no evidence of obstruction. REPLACED BY [facility] Medical History (Updated 03/12/23 @ 14:46 by Natalya Balderrama MD) Anemia Abnormal CT of the abdomen Stomach cancer Kidney disease Asthma Surgical History (Updated 03/11/23 @ 12:54 by Rowena Becerril MD) Hx of colonoscopy Tubal ligation status History of bladder surgery History of cholecystectomy Social History Household Members: Children Housing: Apartment Do you presently have visiting nurse or other home services: No Alcohol intake: never Patient Tobacco Use Status: Never used Tobacco e-Cigarette/Vaping Use: Never Used Advance Directives Date on File: 02/12/20 service: No 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al status: disabled 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: r handed Physical Exam Vital Signs: Last Vital Signs Pulse 73 03/09/23 14:30 BP 112/63 03/09/23 14:30 Assessment & Plan Assessment & Plan (1) Anemia: Code(s): D64.9 - Anemia, unspecified (2) Gastric lymphoma: Code(s): C85.99 - Non-Hodgkin lymphoma, unspecified, extranodal and solid organ sites (3) Gastric mass: Code(s): K31.89 - Other diseases of stomach and duodenum (4) Nausea & vomiting: Code(s): R11.2 - Nausea with vomiting, unspecified (5) Weight loss: Code(s): R63.4 - Abnormal weight loss (6) Colon wall thickening: Code(s): K63.9 - Disease of intestine, unspecified Plan Reviewed with the pt that main concern is bleeding from ulcerated gastric mass. Discussed extensively that if that is the case, hemostasis is complicated as the available modalities mostly temporize the tumor bleeding and ultimate management is the treatment of underlying ca. Will also look for alternative source such as PUD, esophagitis etc. We also reviewed the findings on R side of the colon that were FDG avid however given her sx that are suggestive of at least partial gastric outlet obstruction, pt will likely not be able to tolerate the prep and therefore unable to undergo a diagnostic colo. She reports it takes her 4-6 hours to finish just one cup of water lately. Plan: - EGD to be booked in the next 7-10 days - Repeat CBC 1-2 days before procedure and transfuse if needed - Follow up after EGD as needed Medications: New sucralfate 10 mL PO TID 1,000 mL 0RF Changed From omeprazole 20 mg PO DAILY C85.99 - Non-Hodgkin lymphoma, unspecified, extranodal and solid organ sites To omeprazole 20 mg PO BID 90 days 180 caps 0RF C85.99 - Non-Hodgkin lymphoma, unspecified, extranodal and solid organ sites Coding Level of Care Code New Pt Level 5 (82844) Diagnoses Anemia D64.9 Gastric lymphoma C85.99 Gastric mass K31.89 Nausea & vomiting R11.2 Weight loss R63.4 Colon wall thickening K63.9
[2023-03-09 14:30] VITALS: BP 112/63; PULSE 73
== END 2023-03-09 15:15 | disposition home or self-care (01) ==
PROVIDERS: PCP Family Medicine; Visit Provider Internal Medicine
DX: D64.9 Anemia, unspecified (principal); C85.99 Non-Hodgkin lymphoma, unspecified, extranodal and solid organ sites; K31.89 Other diseases of stomach and duodenum; R11.2 Nausea with vomiting, unspecified; R63.4 Abnormal weight loss; K63.9 Disease of intestine, unspecified
CPT/HCPCS: 99205

== ENCOUNTER → 2023-03-09 13:59 | Outpatient (BNVA) | payer OTHER, SELFPAY | PROVIDERS: PCP Family Medicine; Visit Provider Internal Medicine | DX: K31.89 Other diseases of stomach and duodenum (principal); K63.9 Disease of intestine, unspecified; D64.9 Anemia, unspecified; C85.99 Non-Hodgkin lymphoma, unspecified, extranodal and solid organ sites; R11.2 Nausea with vomiting, unspecified; R63.4 Abnormal weight loss | CPT/HCPCS: 99202 ==

== ENCOUNTER 2023-03-13 10:13 | Day surgery (SDC) | payer OTHER, SELFPAY ==
--- NOTE | 2023-03-13 10:27 | P.CONAN_ITS ---
HPI - Anesthesia Eval Consult details Narrative: 77 yo female patient diagnosed with Diffuse large B-cell lymphoma of the stomach 11/2022. Ulcerating. Has had 3 cycles of chemo Kadeem-R-CHP. Last 03/06/23. Admitted 02/25-03/02 for syncope, anemia. S/p transfusion 2u PRBC 03/08/23 for H/H 6.8/19.9 Total of 5u PRBCs since 01/30 [facility] Active Problems Active Problems: All Active Problems (Updated 03/13/23 @ 10:40 by Светлана Arriola MD) Colon wall thickening (Acute) Weight loss (Acute) Nausea & vomiting (Acute)- denies N&V today Anemia (Acute) H/H 02/09/23 8.05/30 Orthostasis (Acute) Moderate protein malnutrition (Acute) Hypokalemia (Acute) Chemotherapy-induced thrombocytopenia (Acute) Anemia associated with chemotherapy (Acute) Lymphoma malignant, large cell (Acute) Gastric lymphoma (Acute) Gastric lymphoma (Acute) Gastric mass (Acute) Trochanteric bursitis, right hip (Acute) Osteoarthritis of right knee (Acute) Iliotibial band syndrome of right side (Acute) BPPV (benign paroxysmal positional vertigo) (Acute) Kidney disease (Acute) Asthma (Acute) Past Medical History Medical History Anemia Abnormal CT of the abdomen Stomach cancer Kidney disease Asthma Family History Family history of problems with anesthesia: No Surgical History Surgical History Hx of colonoscopy Tubal ligation status History of bladder surgery History of cholecystectomy History of Problems with Anesthesia: No Social History Social History Household Members: Children Housing: Apartment Do you presently have visiting nurse or other home services: No Alcohol intake: never Patient Tobacco Use Status: Never used Tobacco e-Cigarette/Vaping Use: Never Used Second Hand Smoke Exposure: No Advance Directives Date on File: 02/12/20 service: No 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al status: disabled 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: r handed Meds Allergies Allergy/AdvReac Type Severity Reaction Status Date / Time codeine [CODEINE] Allergy Intermediate RASH Verified 03/09/23 14:22 ibuprofen [From MOTRIN] Allergy Intermediate RASH Verified 03/09/23 14:22 Penicillins [PENICILLINS] Allergy Intermediate RASH Verified 03/09/23 14:22 motrin Allergy Unknown rash, Uncoded 03/09/23 14:22 swelling PCN Allergy Unknown rash, Uncoded 03/09/23 14:22 swelling Home Medications Medication Instructions Recorded Confirmed Last Taken Type albuterol sulfate 90 mcg/actuation 2 puff inhalation Q4H PRN 10/10/21 03/06/23 Unknown History aerosol inhaler Shortness Of Breath Or Wheezing atorvastatin 80 mg tablet 80 mg PO QPM 10/10/21 03/06/23 Unknown History cholecalciferol (vitamin D3) 125 125 mcg PO DAILY 10/10/21 03/06/23 Unknown History mcg (5,000 unit) tablet loratadine 10 mg tablet 10 mg PO DAILY PRN Allergic 10/10/21 03/06/23 Unknown History Symptoms fluticasone propionate 50 1 spray intranasal BID PRN Allergy 11/25/22 03/06/23 Unknown History mcg/actuation nasal Symptoms spray,suspension albuterol sulfate 2.5 mg/3 mL 2.5 mg inhalation Q4H PRN Wheezing 01/29/23 03/06/23 Unknown History (0.083 %) solution for nebulization dexamethasone 4 mg tablet 4 mg PO BID PRN day 2 or 3 of chemo 01/29/23 03/06/23 Unknown History prednisone 20 mg tablet 60 mg PO DAILY PRN day 1-5 of chemo 01/29/23 03/06/23 Unknown History sulfamethoxazole 800 1 tab PO DAILY 02/23/23 03/06/23 Unknown History mg-trimethoprim 160 mg tablet cyanocobalamin (vitamin B-12) mcg PO 03/09/23 Unknown History 1,000 mcg tablet furosemide 20 mg tablet 20 mg PO DAILY 03/09/23 Unknown History midodrine 5 mg tablet 5 mg PO TID 03/09/23 Unknown History oxycodone 5 mg tablet 5 mg PO QID PRN 03/09/23 Unknown History umeclidinium 62.5 mcg/actuation 1 inh inhalation DAILY 03/09/23 Unknown History blister powder for inhalation (Incruse Ellipta) Exam Exam Date and Time: March 13, 2023 1027 Height,Weight and Vital Signs: Height 5 ft 3 in Weight 44.991 kg Vital Signs Temp Pulse Resp BP Pulse Ox O2 Del Method 03/13/23 11:13 97.0 F 89 16 95/52 L 95 Room Air Airway Mallampati Class: III TM Dist: <=3cm Neck ROM: Full Loose/Missing/Broken Teeth: Yes (Most missing. Few teeth bottom front. Protruding) Heart: RRR Lungs: CTAB Assessment and Plan Assessment Anesthesia Assessment: Anesthesia Plan Discussed and Chart Reviewed Final Anesthetic Review Family History of Problems with Anesthesia: No History of Problems with Anesthesia: No NPO: Yes ASA Class: IV Final Preanesthetic Review: No Changes in Pt Med Stat, Meds/Allgs Chart Reviewed, Consent Obtained/Reviewed and Anes Risks/Benef Reviewed Patient Risk: Intermediate Procedure Risk: Low Assessment/Block/Sedation in SS: Assess/Block/Sedation-SS Anesthetic Plan Anesthetic Plan: GA and MAC: Disposition: Standard PACU
[2023-03-13 10:46] VITALS: BMI 17.6
[2023-03-13 11:13] VITALS: BP 95/52; PULSE 89; RESP 16; TEMP 36.1; O2SAT 95
--- NOTE | 2023-03-13 11:13 | MHC.SHP ---
Pre-Procedural Eval Section A Date of Service: 03/13/23 Section B Chief Complaint: Malignant neoplasm of stomach, unspecified Details of Present Illness: anemia Relevant Family History (Specify if Yes): No Relevant Social History: None Present Medications: see Short Stay Collaborative assessment Medical History: Significant History (Abnormal CT of the abdomen Anemia Asthma Kidney disease Stomach cancer) History of Previous Operations: Relevant previous surgery/procedure and date(s) (Hx of colonoscopy Tubal ligation status History of bladder surgery History of cholecystectomy) Allergies: Allergies Allergy/AdvReac Type Severity Reaction Status Date / Time codeine [CODEINE] Allergy Intermediate RASH Verified 03/09/23 14:22 ibuprofen [From MOTRIN] Allergy Intermediate RASH Verified 03/09/23 14:22 Penicillins [PENICILLINS] Allergy Intermediate RASH Verified 03/09/23 14:22 motrin Allergy Unknown rash, Uncoded 03/09/23 14:22 swelling PCN Allergy Unknown rash, Uncoded 03/09/23 14:22 swelling Review of Systems Sugical H&P ROS: Negative: Constitution, Cardiovascular, Respiratory, Neurological, Psychiatric, Hem-Onc, Allergic/Immunologic, Gastrointestinal, Genitourinary, Musculoskeletal, Integumentary, Endocrine and Eyes/Ears/Nose/Throat Exam Surgical H&P Exam: Normal: HEENT, Normal: Heart, Normal: Lungs, Normal: Extremities, Normal: Abdomen, Normal: Skin and Normal: Neurological Plan Diagnosis/Plan: Unchanged I have reviewed the history and physical and performed a pertinent physical examination on my patient. No changes have occurred unless specified. Time Spent With Patient Time: Total time managing care of this patient today ____ minutes.
--- NOTE | 2023-03-13 11:34 | W.PM.OPN ---
Operative Note Operative Note Date of Service: 03/13/23 Narrative: Procedure Description: EGD Indication: anemia, gastric lymphoma Anesthesia: MAC FLEXIBLE TRANSORAL UPPER GASTROINTESTINAL ENDOSCOPY UPPER ENDOSCOPY Consent: Indications for the procedure and potential complications of bleeding, perforation, reaction to medications and missed diagnosis were discussed with the patient and informed consent was obtained. Instrument: Olympus GIF H 190 J mid size upper endoscope Monitoring: Vital signs and clinical assessment, continuous EKG monitoring, Pulse oximetry, Carbon Dioxide monitoring and blood pressure monitoring were done throughout the procedure. Procedure: The patient was placed in the left lateral decubitis position and pre-procedure medications were administered and a bite block was placed. The endoscope was inserted into the mouth and advanced under direct vision to the third part of duodenum. A careful inspection was made as the upper endoscope was withdrawn including a retroflexed examination of the proximal stomach; Findings and interventions are described below. Findings: Larynx:normal Esophagus: GE junction at 35 cm, diaphragm hiatus at 35 cm, no varices or esophagitis. Stomach: Patchy gastric erythema. Grade 2 flap valve on retroflexed examination of the cardia. Large carteriform ulcer in mid stomach body in greater curve measuring about 2-3 cm in diameter. No bleeding noted or visible vessels seen. Duodenum: Normal bulb and descending duodenum, no blood seen Intervention: none Impression/Findings: malignant gastric ulcer, not bleeding PLAN: can cont with sucralfate and PPI consider colonoscopy for further eval of anemia, will defer Dr Balderrama
[2023-03-13 11:47] VITALS: BP 111/69; PULSE 77; RESP 18; TEMP 36.4; O2SAT 100
[2023-03-13 12:07] VITALS: BP 114/78; PULSE 85; RESP 17; TEMP 36.1; O2SAT 100
== END 2023-03-13 13:03 | disposition home or self-care (01) ==
PROVIDERS: PCP Family Medicine; Visit Provider Internal Medicine Gastroenterology
PROC: 0DJ08ZZ Inspection of Upper Intestinal Tract, Via Natural or Artificial Opening Endoscopic (ICD-10-PCS; CPT 43235; principal; 2023-03-13 12:00)
DX: C16.9 Malignant neoplasm of stomach, unspecified (principal); D64.9 Anemia, unspecified; N18.9 Chronic kidney disease, unspecified; Z98.51 Tubal ligation status; Z90.49 Acquired absence of other specified parts of digestive tract; Z92.21 Personal history of antineoplastic chemotherapy; Z79.899 Other long term (current) drug therapy
CPT/HCPCS: 43235; J1642

== ENCOUNTER → 2023-03-13 10:13 | Outpatient (BNV) | payer OTHER, SELFPAY | PROVIDERS: PCP Family Medicine; Visit Provider Internal Medicine Gastroenterology | DX: D64.9 Anemia, unspecified (principal); C85.99 Non-Hodgkin lymphoma, unspecified, extranodal and solid organ sites | CPT/HCPCS: 43235 ==

== ENCOUNTER 2023-04-12 13:46 | Inpatient (IN) | payer OTHER, SELFPAY ==
--- NOTE | ~2023-04-12 | XR_ITS ---
EXAMINATION: XR CHEST CLINICAL INFORMATION: SOB, weakness COMPARISON: Chest 02/23/2023 TECHNIQUE: Frontal view of the chest was obtained. FINDINGS: Both lungs are hyperinflated but clear of acute process. Heart size and pulmonary vascularity is normal. There is a right central venous port with its tip in mid to distal SVC. No gross bony abnormality seen. XR/XR chest 1V IMPRESSION: No acute cardiopulmonary process seen.
[2023-04-12 14:22] VITALS: BP 97/56; PULSE 83; RESP 18; TEMP 36.8; O2SAT 97; BMI 19.5
--- NOTE | 2023-04-12 14:23 | ED.NAVMDI ---
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 Becerril, anemia, orthostasis, presenting to the ED complaining of acute on chronic abdominal pain, nausea/vomiting and diarrhea x yesterday with lightheadedness and generalized fatigue/weakness. Reports difficulty ambulating secondary to feeling weak. Also reports subjective fever and SOB. Denies chills, dysuria/hematuria, CP MD elicited complaint: nausea, vomiting, diarrhea and abdominal pain Related Data Home Medications Medication Instructions Recorded Confirmed albuterol sulfate 90 mcg/actuation 2 puff inhalation Q4H PRN 10/10/21 03/06/23 aerosol inhaler Shortness Of Breath Or Wheezing atorvastatin 80 mg tablet 80 mg PO QPM 10/10/21 03/06/23 cholecalciferol (vitamin D3) 125 125 mcg PO DAILY 10/10/21 03/06/23 mcg (5,000 unit) tablet loratadine 10 mg tablet 10 mg PO DAILY PRN Allergic 10/10/21 03/06/23 Symptoms fluticasone propionate 50 1 spray intranasal BID PRN Allergy 11/25/22 03/06/23 mcg/actuation nasal Symptoms spray,suspension albuterol sulfate 2.5 mg/3 mL 2.5 mg inhalation Q4H PRN Wheezing 01/29/23 03/06/23 (0.083 %) solution for nebulization dexamethasone 4 mg tablet 4 mg PO BID PRN day 2 or 3 of chemo 01/29/23 03/06/23 prednisone 20 mg tablet 60 mg PO DAILY PRN day 1-5 of chemo 01/29/23 03/06/23 sulfamethoxazole 800 1 tab PO DAILY 02/23/23 03/06/23 mg-trimethoprim 160 mg tablet cyanocobalamin (vitamin B-12) mcg PO 03/09/23 1,000 mcg tablet furosemide 20 mg tablet 20 mg PO DAILY 03/09/23 midodrine 5 mg tablet 5 mg PO TID 03/09/23 oxycodone 5 mg tablet 5 mg PO QID PRN 03/09/23 umeclidinium 62.5 mcg/actuation 1 inh inhalation DAILY 03/09/23 blister powder for inhalation (Incruse Ellipta) Previous Rx's Medication Instructions Recorded ondansetron 8 mg disintegrating 8 mg PO Q8H PRN Nausea #30 tabs 02/16/23 tablet fludrocortisone 0.1 mg tablet 0.1 mg PO DAILY #30 tabs 03/02/23 omeprazole 20 mg capsule,delayed 20 mg PO BID 90 days #180 caps 03/09/23 release sucralfate 100 mg/mL oral 10 ml PO TID #1,000 mL 03/09/23 suspension potassium chloride 10 mEq 20 meq (2 x 10 mEq) PO DAILY #30 03/20/23 capsule,extended release caps sodium,potassium,mag sulfates 17.5 See Rx Instructions PO .COMPLEX 03/20/23 gram-3.13 gram-1.6 gram oral soln #354 mL (Suprep Bowel Prep Kit) Allergies Allergy/AdvReac Type Severity Reaction Status Date / Time codeine [CODEINE] Allergy Intermediate RASH Verified 03/09/23 14:22 ibuprofen [From MOTRIN] Allergy Intermediate RASH Verified 03/09/23 14:22 Penicillins [PENICILLINS] Allergy Intermediate RASH Verified 03/09/23 14:22 motrin Allergy Unknown rash, Uncoded 03/09/23 14:22 swelling PCN Allergy Unknown rash, Uncoded 03/09/23 14:22 swelling Review of Systems Review of Systems: Constitutional: No Fever, No Chills, + Fatigue, + Malaise ENT/Mouth: No Ear Pain, No Nasal Congestion, No sore throat, No Rhinorrhea, No Swallowing Difficulty Eyes: No Eye Pain, No Swelling, No Redness Cardiovascular: No Chest Pain, +SOB, No Edema, No Palpitations Respiratory: No Cough, No Sputum, No Dyspnea Gastrointestinal: + Nausea, + Vomiting, + Diarrhea, No Constipation, + Abdominal pain Genitourinary: No irregular bleeding, No Dysuria, No Urinary Frequency, No Hematuria, No Urinary Incontinence/retention, No Flank Pain Musculoskeletal: No joint pain, No Myalgias, No Joint Swelling Skin: No Skin Lesions, No rash Neuro: + Weakness, No Loss of Consciousness, + lightheaded, No Headache Yes all other systems are reviewed and are negative Constitutional: Constitutional: Reports as per HPI [facility] Past Medical History Attestation statement: The following information was validated with the patient. Source: old records reviewed Medical History Anemia Abnormal CT of the abdomen Stomach cancer Kidney disease Asthma Surgical History Hx of colonoscopy Tubal ligation status History of bladder surgery History of cholecystectomy Social History Social History Household Members: Children Housing: Apartment Do you presently have visiting nurse or other home services: No Alcohol intake: never Patient Tobacco Use Status: Never used Tobacco e-Cigarette/Vaping Use: Never Used Second Hand Smoke Exposure: No Advance Directives: Yes Advance Directives on File: Yes Advance Directives Date on File: 02/12/20 service: No 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al status: disabled 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: r handed Physical Exam Vital Signs: Vital Signs: Last Vital Signs Temp 98.2 F 04/12/23 14:22 Pulse 83 04/12/23 14:22 Resp 18 04/12/23 14:22 BP 97/56 L 04/12/23 14:22 Pulse Ox 97 04/12/23 14:22 O2 Del Method Room Air 04/12/23 14:22 BMI result Body Mass Index 19.5 Const: General: cooperative and no acute distress Nutritional Appearance: thin Orientation/consciousness: patient oriented x3 Limitations: no limitations HEENT: Head: Yes normal to inspection and Yes atraumatic Ears: hearing grossly normal bilaterally General nose exam: Normal external nose present Face and sinus: Yes normal facial exam Eyes: General: appearance normal, both eyes and all related structures EOM: EOMs intact bilaterally Neck: Neck: Yes normal visual inspection and Yes no meningeal signs Resp: Effort & Inspection: normal respiratory effort and no respiratory distress Auscultation: clear to auscultation bilaterally, no rales and no wheezes Cardio: Rate: regular rate Heart sounds: S1 normal heart sound present and S2 normal heart sound present GI: Inspection: Yes normal to inspection Palpation (GI): Soft to palpation, nontender, no guarding and not rigid : General: Yes no CVA tenderness Back/Spine/Pelvis: Back: no CVA tenderness Skin: Rashes: no rashes Wounds: no wounds Neuro: General: patient oriented x3, tone normal, moves all extremities, no meningeal signs, no focal motor deficits and CN's II-XI intact bilaterally Cranial nerves: Yes CN's II-XII intact bilaterally Motor exam (neuro): 5/5 motor strength present throughout Extrem: General: Yes normal to inspection Course Course Course Narrative: This is an RME: Additional HPI, ROS, PE not included below will be deferred to primary provider. This is a 29-bgen-hum-female, with a hx of diffuse large B cell lymphoma of stomach on chemotherapy, mixed hyperlipidemia, presenting to the emergency department with a complaint abdominal pain, nausea, vomiting, and diarrhea. Reporting some dizziness this morning which has since resolved. Unable to eat/drink. Plan: -1628--leukocytosis of 17.7 > likely reactive Neupogen/medication. Will confirm with oncology that patient received. Low suspicion for severe sepsis -H&H at patient's baseline. Potassium low to 3.1 > p.o. repletion ordered. Chronic hypoalbuminemia >> patient unable to tolerate p.o. potassium > will order IV replacement. -Initial troponin 22.9 > will obtain 3 hour repeat XR chest 1V IMPRESSION: No acute cardiopulmonary process seen. -UA contaminated will wait for culture to initiate antibiotics -COVID/flu/RSV negative > case discussed with patient's oncologist, Dr. Becerril, agrees with admission. Unclear if patient receives Neulasta. 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 Becerril, anemia, orthostasis, presenting to the ED complaining of acute on chronic abdominal pain, nausea/vomiting and diarrhea x yesterday with lightheadedness and generalized fatigue/weakness. On exam hypotensive, chronically ill-appearing, lungs CTA, abdomen soft/nontender. No focal neuro deficits. Concern for gastroenteritis vs dehydration/metabolic abnormality vs chronic abdominal pain from known carcinoma vs anemia of chronic disease/chemotherapy vs orthostasis. Rule out metabolic abnormalities. Plan: EKG, labs, UA, CXR, viral testing, IVF, orthostatics, consult Heme-Onc Please refer to course for remaining clinical decision making, interpretation of labs/imaging results, and discussions with consultants and/or family members. Differential Diagnosis Differential Diagnoses: The differential diagnosis associated with the presentation includes As above Admission/Observation Consideration of admission/observation: Escalation of care including admission/observation considered Consult Healthcare Provider Management of the patient was discussed with: Algebra Teacher Lab Data MDM Lab Attestation statement: I reviewed the patient's lab results. 04/12/23 16:01 04/12/23 16:01 Labs: Lab Results 04/12/23 04/12/23 Range/Units 16:01 16:52 WBC 17.7 H (4.8-10.8) X10*3/uL RBC 2.93 L (4.20-5.50) X10*6/uL Hgb 8.8 L (12.0-16.0) g/dl Hct 26.6 L (37.0-47.0) % MCV 90.8 (80.0-98.0) fL MCH 30.0 (27.0-33.0) pg MCHC 33.1 (31.0-35.0) g/dl RDW 17.5 H (11.0-16.0) % Plt Count 204 D (160-400) X10*3/uL MPV 10.4 (9.4-12.3) fL Immature Gran % (Auto) 3.9 H (0.0-0.4) % Neut % (Auto) 86.3 H (45-73) % Lymph % (Auto) 6.2 L (20-40) % [place] % (Auto) 3.3 (2-11) % Eos % (Auto) 0.0 (0-4) % Baso % (Auto) 0.3 (0-2) % Lymph # (Auto) 1.1 L (1.2-4.9) X10*3/uL [place] # (Auto) 0.6 (0.1-1.2) X10*3/uL Eos # (Auto) 0.0 (0.0-0.4) X10*3/uL Baso # (Auto) 0.1 (0.0-0.2) X10*3/uL Abs Immat Gran (auto) 0.69 H (0.00-0.03) X10*3/uL Absolute Neuts (auto) 15.3 H (2.0-8.3) x10*3/uL Absolute Nucleated RBC 0.000 (0.0-0.012) X10*3/uL Nucleated RBC % (auto) 0.0 (0.0-0.2) /100WBC Sodium 143 (135-145) mmol/L Potassium 3.1 L (3.3-5.1) mmol/L Chloride 107 (96-108) mmol/L Carbon Dioxide 28 (22-29) mmol/L Anion Gap 11 L (12-20) BUN 12 (9-16) mg/dL Creatinine 0.86 (0.5-1.4) mg/dL Estim Creat Clear Calc 39.8 Estimated GFR > 60 Random Glucose 88 (60-115) mg/dL Calcium 7.9 L (8.4-10.2) mg/dL Magnesium 1.7 (1.6-2.6) mg/dL Total Bilirubin 0.3 (0.0-1.0) mg/dL Direct Bilirubin 0.2 (0.0-0.5) mg/dL AST 12 (5-31) U/L ALT 5 (0-31) U/L Alkaline Phosphatase 103 (39-117) U/L Troponin I High Sens 22.9 H D (<3.5-17.0) ng/L Total Protein 4.8 L (6.5-8.0) g/dL Albumin 2.8 L (3.5-5.0) g/dL Lipase 6 L (8-78) U/L Urine Color Yellow Urine Appearance Cloudy Urine pH 5.5 (5.0-9.0) Ur Specific [place] 1.020 (1.005-1.025) Urine Protein 30 (1+) H (Neg-Trace) mg/dL Urine Glucose (UA) Negative (Negative) mg/dL Urine Ketones Trace (Negative) mg/dL Urine Blood Negative (Negative) Urine Nitrite Negative (Negative) Ur Leukocyte Esterase Moderate (2+) H (Negative) Urine RBC 0-2 (0-2) /HPF Urine WBC >50 H (0-5) /HPF Ur Squamous Epith Cells 11-20 (0-2) /HPF Urine Bacteria 1+ (None Seen) Hyaline Casts 11-20 (0-2) /LPF Influenza Type A (PCR) NEGATIVE (Negative) Influenza Type B (PCR) NEGATIVE (Negative) RSV RNA Qual (PCR) NEGATIVE (Negative) SARS-CoV-2 RNA (RT-PCR) NEGATIVE (Negative) Independent Interpretation I performed an independent interpretation of an: EKG Radiology Impression Discussion of test interpretation with radiology: I have reviewed the radiologist's reading. Independent Historian Clinical information obtained from an independent historian. History obtained from or confirmed by: Other (son) External Record Review External record reviewed: Inpatient record, Office record, Outpatient record, Prior outpatient labs, Prior outpatient radiology, Primary care record and Outside ED record Tests considered The following testing was considered but not selected: As above Chronic Conditions Patient?s care impacted by: Cancer Discharge Plan Discharge Clinical Impression: Adult failure to thrive, Nausea and vomiting, Anorexia, Chronic abdominal pain Patient Disposition: Admitted As Inpatient
--- NOTE | 2023-04-12 14:25 | ECG_ITS ---
Test Reason : WEAKNESS Blood Pressure : / mmHG Vent. Rate : 068 BPM Atrial Rate : 000 BPM P-R Int : 000 ms QRS Dur : 082 ms QT Int : 412 ms P-R-T Axes : 000 031 042 degrees QTc Int : 438 ms Likely normal sinus rhythm Nonspecific T wave abnormality Abnormal ECG When compared with ECG of 23-FEB-2023 18:30, No significant changes seen Referred By: Jackie Leon Electronically Signed By:ABDELRAHMAN MATHIAS
[2023-04-12 16:07] LABS: MANUAL DIFF FLAG NO
[2023-04-12 16:09] LABS: Basophils Absolute Auto 0.1 X10*3/uL (0.0-0.2); Basophils Percent Auto 0.3 % (0-2); Hematocrit 26.6 % (37.0-47.0); Hemoglobin 8.8 g/dl (12.0-16.0); Imm Gran Abs Auto 0.69 X10*3/uL (0.00-0.03); Imm Gran Pct Auto 3.9 % (0.0-0.4); Lymphocytes Absolute Auto 1.1 X10*3/uL (1.2-4.9); Lymphocytes Percent Auto 6.2 % (20-40); Mean Corpuscular HGB Conc 33.1 g/dl (31.0-35.0); Mean Corpuscular Volume 90.8 fL (80.0-98.0); Mean Platelet Volume 10.4 fL (9.4-12.3); Monocytes Absolute Auto 0.6 X10*3/uL (0.1-1.2); Monocytes Percent Auto 3.3 % (2-11); Neutrophils Absolute Auto 15.3 x10*3/uL (2.0-8.3); Neutrophils Percent Auto 86.3 % (45-73); Platelet Count 204 X10*3/uL (160-400); Red Blood Count 2.93 X10*6/uL (4.20-5.50); Red Cell Distribution Width 17.5 % (11.0-16.0); White Blood Count 17.7 X10*3/uL (4.8-10.8)
[2023-04-12 16:25] LABS: Alanine Aminotransferase 5 U/L (0-31); Albumin Level 2.8 g/dL (3.5-5.0); Alkaline Phosphatase 103 U/L (39-117); Anion Gap 11 (12-20); Aspartate Amino Transferase 12 U/L (5-31); Bilirubin Direct 0.2 mg/dL (0.0-0.5); Bilirubin Total 0.3 mg/dL (0.0-1.0); Blood Urea Nitrogen 12 mg/dL (9-16); Calcium 7.9 mg/dL (8.4-10.2); Carbon Dioxide 28 mmol/L (22-29); Chloride 107 mmol/L (96-108); Creatinine Clr Calc Pharmacy 39.8; Estimated Glomerular Filt Rate > 60; Glucose Random 88 mg/dL (60-115); Lipase 6 U/L (8-78); Magnesium 1.7 mg/dL (1.6-2.6); Potassium 3.1 mmol/L (3.3-5.1); Sodium 143 mmol/L (135-145); Total Protein 4.8 g/dL (6.5-8.0)
[2023-04-12 16:32] LABS: Troponin-I High Sensitivity 22.9 ng/L (<3.5-17.0)
[2023-04-12 16:48] LABS: Influenza A PCR NEGATIVE (Negative); Influenza B PCR NEGATIVE (Negative); Resp Syncy Virus RNA Qual PCR NEGATIVE (Negative); SARS COV2 PCR INHOUSE NEGATIVE (Negative)
[2023-04-12 17:01] LABS: Appearance Urine Cloudy; Color Urine Yellow; Glucose Urine UA Negative (Negative); Leukocyte Esterase Urine Moderate (2+) (Negative); Nitrite Urine Negative (Negative); PH 5.5 (5.0-9.0); UMIC TRIGGER UACC YES; Urine Blood Negative (Negative); Urine Ketones Trace mg/dL (Negative); Urine Protein 30 (1+) mg/dL (Neg-Trace)
[2023-04-12 17:13] LABS: Bacteria Urine 1+ (None Seen); RBC Urine 0-2 /HPF (0-2); UACC Culture Trigger YES; WBC Urine >50 /HPF (0-5)
[2023-04-12] MEDS: 0.9 % Sodium Chloride 1,000 ML 999 ML IV (17:29)
--- NOTE | 2023-04-12 18:30 | PM.IMHP ---
History of Present Illness Date of Service: 04/12/23 Attending physician on admission: Francesco Stack Chief Complaint: Abd pain, unable to tolerate p.o. Pt is a South Korean-speaking 77-year-old female with a PMH significant for?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 Becerril, anemia, orthostasis, and HLD who presents to the ED with nausea, vomiting, abdominal pain since yesterday. Patient states since yesterday evening she has been unable to tolerate anything by mouth. States stomach pain is located ?in my stomach where I have cancer?, has had some lightheadedness and dizziness, especially yesterday, and difficulty with ambulating secondary to increased fatigue. Also reports subjective fever and chills. Denies dysuria, polyuria, but states she has not been drinking fluids. No chest pain/pressure, palpitations. No shortness of breath. In the ED pt with soft BP of 97/56, otherwise vitals WNL. Labs were significant for leukocytosis of 17.7, H&H around baseline at 8.8/26.6, potassium 3.1, troponin 22.9. Otherwise unremarkable. UA positive for UTI. Tested negative for influenza types A and B, RSV, COVID. CXR showed no acute cariopulmonary process seen. Pt was treated with IVF, and potassium chloride. Pt will be admitted to the hospital for treatment and further evaluation of adult failure to thrive and UTI in the setting of patient on chemotherapy. Review of Systems Review of Systems: N/V Abdominal pain Fever, chills Denies chest pain/pressure, palpitations Lightheadedness and dizziness yesterday [facility] Medical History Anemia Abnormal CT of the abdomen Stomach cancer Kidney disease Asthma Surgical History Hx of colonoscopy Tubal ligation status History of bladder surgery History of cholecystectomy Social History Household Members: Children Housing: Apartment Do you presently have visiting nurse or other home services: No Alcohol intake: never Patient Tobacco Use Status: Never used Tobacco e-Cigarette/Vaping Use: Never Used Second Hand Smoke Exposure: No Advance Directives: Yes Advance Directives on File: Yes Advance Directives Date on File: 02/12/20 service: No 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al status: disabled 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: r handed Meds Allergies Allergy/AdvReac Type Severity Reaction Status Date / Time codeine [CODEINE] Allergy Intermediate RASH Verified 03/09/23 14:22 ibuprofen [From MOTRIN] Allergy Intermediate RASH Verified 03/09/23 14:22 Penicillins [PENICILLINS] Allergy Intermediate RASH Verified 03/09/23 14:22 motrin Allergy Unknown rash, Uncoded 03/09/23 14:22 swelling PCN Allergy Unknown rash, Uncoded 03/09/23 14:22 swelling Active Medications: Current Medications Potassium Chloride (Potassium Chloride/H20) 10 meq in 100 mls @ 100 mls/hr IV Q1H YOMAIRA Stop: 04/12/23 19:44 Home Medications Medication Instructions Recorded Confirmed Last Taken Type albuterol sulfate 90 mcg/actuation 2 puff inhalation Q4H PRN 10/10/21 04/12/23 Unknown History aerosol inhaler Shortness Of Breath Or Wheezing atorvastatin 80 mg tablet 80 mg PO QPM 10/10/21 04/12/23 Unknown History cholecalciferol (vitamin D3) 125 125 mcg PO DAILY 10/10/21 04/12/23 Unknown History mcg (5,000 unit) tablet loratadine 10 mg tablet 10 mg PO DAILY PRN Allergic 10/10/21 04/12/23 Unknown History Symptoms fluticasone propionate 50 1 spray intranasal BID PRN Allergy 11/25/22 04/12/23 Unknown History mcg/actuation nasal Symptoms spray,suspension dexamethasone 4 mg tablet 4 mg PO BID PRN day 2 or 3 of chemo 01/29/23 04/12/23 Unknown History prednisone 20 mg tablet 60 mg PO DAILY PRN day 1-5 of chemo 01/29/23 04/12/23 Unknown History sulfamethoxazole 800 1 tab PO DAILY 02/23/23 04/12/23 Unknown History mg-trimethoprim 160 mg tablet cyanocobalamin (vitamin B-12) 1,000 mcg PO DAILY 03/09/23 04/12/23 Unknown History 1,000 mcg tablet midodrine 5 mg tablet 5 mg PO TID 03/09/23 04/12/23 Unknown History oxycodone 5 mg tablet 5 mg PO QID PRN Pain (Scale Score 03/09/23 04/12/23 Unknown History 4-6) umeclidinium 62.5 mcg/actuation 1 inh inhalation DAILY 03/09/23 04/12/23 Unknown History blister powder for inhalation (Incruse Ellipta) Physical Exam Vital Signs and Narrative: Vital Signs: Last Vital Signs Temp 98.2 F 04/12/23 14:22 Pulse 83 04/12/23 14:22 Resp 18 04/12/23 14:22 BP 97/56 L 04/12/23 14:22 Pulse Ox 97 04/12/23 14:22 O2 Del Method Room Air 04/12/23 14:22 BMI result Body Mass Index 19.5 General: AOx3, frail-looking, cachetic, no acute distress Resp: CTA bilaterally CVS: S1, S2, RRR GI: +BS, NT, no distention Skin: Warm, dry Neuro: Cranial nerves II-XII grossly intact bilaterally. Motor grossly intact bilaterally Extremities: No edema Psych: Appropriate affect Results Labs 04/12/23 16:01 04/12/23 16:01 Labs: Laboratory Results - last 24 hr 04/12/23 04/12/23 16:01 16:52 MCV 90.8 MCH 30.0 MCHC 33.1 RDW 17.5 H Plt Count 204 D MPV 10.4 Immature Gran % (Auto) 3.9 H Neut % (Auto) 86.3 H Lymph % (Auto) 6.2 L [place] % (Auto) 3.3 Eos % (Auto) 0.0 Baso % (Auto) 0.3 Lymph # (Auto) 1.1 L [place] # (Auto) 0.6 Eos # (Auto) 0.0 Baso # (Auto) 0.1 Abs Immat Gran (auto) 0.69 H Absolute Neuts (auto) 15.3 H Absolute Nucleated RBC 0.000 Nucleated RBC % (auto) 0.0 Anion Gap 11 L Estim Creat Clear Calc 39.8 Estimated GFR > 60 Random Glucose 88 Calcium 7.9 L Magnesium 1.7 Total Bilirubin 0.3 Direct Bilirubin 0.2 AST 12 ALT 5 Alkaline Phosphatase 103 Total Protein 4.8 L Albumin 2.8 L Lipase 6 L Urine Color Yellow Urine Appearance Cloudy Urine pH 5.5 Ur Specific [place] 1.020 Urine Protein 30 (1+) H Urine Glucose (UA) Negative Urine Ketones Trace Urine Blood Negative Urine Nitrite Negative Ur Leukocyte Esterase Moderate (2+) H Urine RBC 0-2 Urine WBC >50 H Ur Squamous Epith Cells 11-20 Urine Bacteria 1+ Hyaline Casts 11-20 Influenza Type A (PCR) NEGATIVE Influenza Type B (PCR) NEGATIVE RSV RNA Qual (PCR) NEGATIVE SARS-CoV-2 RNA (RT-PCR) NEGATIVE Imaging Radiologist's Impressions: Impressions Chest X-Ray 04/12/23 16:36 IMPRESSION: No acute cardiopulmonary process seen. Assessment and Plan (1) Anorexia: Status: Acute (2) Nausea and vomiting: Status: Acute (3) Adult failure to thrive: Status: Acute (4) UTI (urinary tract infection): Status: Acute Plan Pt is a [place] Korean-speaking 77-year-old female with a PMH significant for?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 Becerril, anemia, orthostasis, and HLD who presents to the ED with nausea, vomiting, abdominal pain since yesterday. Pt will be admitted to the hospital for treatment and further evaluation of adult failure to thrive and UTI in the setting of patient on chemotherapy. N/V/unable to tolerate p.o./failure to thrive Pt with hx of 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 Becerril No p.o. intake since yesterday Will place on maintenance fluids Hem/onc consult Nutrition consult Clear liquid diet for now, advance as tolerated Continue back burn, sucralfate, prednisone, dexamethasone, ondansetron, omeprazole, oxycodone Hypokalemia Potassium 3.1 at presentation Likely secondary to dyhydration from GI losses and reduced p.o. intake Received potassium IV supplemenation, could not tolerate p.o. Follow-up BMP UTI UA positive for UTI Will treat with ceftriaxone started 04/12/2023 Elevated troponin Initial troponin 22.9 at time of presentation Patient asymptomatic, EKG without significant ST elevations or depressions Repeat troponin Anemia H&H 8.8/26.6, around baseline Patient on chemotherapy for gastric lymphoma Follow CBC HLD Continue statin Orthostatic hypotension Continue fludrocortisone Full Code Attending:?Dr. Stack DVT Prophylaxis: Pneumatic boots d/t anemia with hx of thrombocytopenia Pt will require a hospitalization of at least two nights for treatment of?adult failure to thrive and UTI in the setting of patient on chemotherapy. Patient be treated with IVF, IV antibiotics, close monitoring, and specialist consultation. Quality Stroke Does the patient have a stroke diagnosis?: No VTE Prior VTE?: No VTE Risk Level:: Medical - moderate - high VTE Device Contraindication: N/A - Device Ordered VTE Drug Contraindication: Treatment Not Indicated
[2023-04-12] MEDS: Potassium Chloride/H20 10 MEQ/100 ML PIGGYBACK 100 MEQ IV ×2 (19:18→20:54)
--- NOTE | 2023-04-12 20:15 | PHA.MEDREC ---
Pharmacy Consult ? Medication Reconciliation Pharmacy has completed the medication reconciliation. Patient confirm medication based on previously claim history and med record. Reports not on furosemide. Cyndi Jones, PharmD
[2023-04-12 20:58] VITALS: BP 112/64; PULSE 72
[2023-04-12 21:00] VITALS: BP 115/66; PULSE 72
[2023-04-12 21:02] VITALS: BP 76/46
[2023-04-12 23:17] VITALS: BP 90/54; PULSE 80; RESP 17; TEMP 37.2; O2SAT 99
[2023-04-12] MEDS: cefTRIAXone sodium 1 GM in 0.9 % Sodium Chloride 50 ML IV (23:47)
[2023-04-13] MEDS: 0.9 % Sodium Chloride Flush 3 ML SYRINGE IVFLUSH (00:27)
[2023-04-13] MEDS: Lactated Ringers 1,000 ML 100 ML IVCONT ×3 (00:27→21:06)
[2023-04-13 01:35] VITALS: BP 106/62; PULSE 73; RESP 17; TEMP 36.7; O2SAT 98
[2023-04-13 05:13] VITALS: BP 100/60; PULSE 71; RESP 18; TEMP 36.9; O2SAT 99
--- NOTE | 2023-04-13 05:49 | PC.NURSE ---
Patient alert and oriented X4, slept majority of the night. Reporting no pain t this time. Fluids running, no distress, 1 assist to the commode. Pt has call forrest and return demonstration for use.
[2023-04-13 07:04] LABS: Hematocrit 25.2 % (37.0-47.0); Hemoglobin 8.1 g/dl (12.0-16.0); Mean Corpuscular HGB Conc 32.1 g/dl (31.0-35.0); Mean Corpuscular Hemoglobin 29.7 pg (27.0-33.0); Mean Corpuscular Volume 92.3 fL (80.0-98.0); Mean Platelet Volume 10.8 fL (9.4-12.3); Platelet Count 195 X10*3/uL (160-400); Red Blood Count 2.73 X10*6/uL (4.20-5.50); Red Cell Distribution Width 17.6 % (11.0-16.0)
[2023-04-13 07:12] LABS: Anion Gap 11 (12-20); Blood Urea Nitrogen 9 mg/dL (9-16); Calcium 7.7 mg/dL (8.4-10.2); Carbon Dioxide 25 mmol/L (22-29); Chloride 112 mmol/L (96-108); Creatinine Clr Calc Pharmacy 49.6; Estimated Glomerular Filt Rate > 60; Glucose Random 69 mg/dL (60-115); Potassium 3.3 mmol/L (3.3-5.1); Sodium 145 mmol/L (135-145)
[2023-04-13] MEDS: Sucralfate Oral Suspension 1 GM/10 ML ORAL.SUSP PO ×3 (09:13→20:10)
[2023-04-13] MEDS: Midodrine HCl 5 MG TABLET PO ×3 (09:15→20:10)
[2023-04-13] MEDS: Cyanocobalamin (Vitamin B-12) 1,000 MCG TABLET 1000 MCG PO (09:15)
[2023-04-13] MEDS: Potassium Chloride ER 20 MEQ TAB.ER.PRT PO (09:15)
[2023-04-13] MEDS: Sulfamethox/Trimeth 800/160 TABLET 1 TAB PO (09:15)
[2023-04-13] MEDS: Cholecalciferol (Vitamin D3) 25 MCG TABLET 125 MCG PO (09:15)
[2023-04-13] MEDS: Enoxaparin Sodium 40 MG/0.4 ML SYRINGE SUBCUT (09:22)
[2023-04-13 09:28] VITALS: BP 121/81; PULSE 79; RESP 16; TEMP 37.1; O2SAT 96
[2023-04-13] MEDS: ondansetron HCL 4 MG/2 ML VIAL IVPUSH (09:32)
--- NOTE | 2023-04-13 09:38 | PC.NURSE ---
assumed care of pt at 0730. pt a&o x4, calm, and cooperative. pt started taking morning medications and became nauseous. provided with margoth-bag. given prn zofran per mar. pt currently working on taking rest of am meds. pct at bedside encouraging pt. LR going at [address] Lockwood at bedside. pt awaiting bed assignment. call forrest within pt reach. rr even/unlabored. vss. plan of care ongoing.
--- NOTE | 2023-04-13 11:06 | PC.NURSE ---
pt used bedside commode. c/o diarrhea from medications. Dr. Lockwood notified.
[2023-04-13 11:49] VITALS: BP 143/68; PULSE 71; RESP 16; TEMP 36.2; O2SAT 99
--- NOTE | 2023-04-13 13:33 | HO.PM.IMPN ---
Subjective Subjective Date of Service: 04/13/23 Interval History: This history was taken in Romanian from the patient. C/o abd discomfort + nausea No fever Some diarrhea Review of Systems Review of Systems: Yes all other systems are reviewed and are negative Physical Exam Vital Signs: Vital Signs: Last Vital Signs Temp 97.1 F 04/13/23 11:49 Pulse 71 04/13/23 11:49 Resp 16 04/13/23 11:49 BP 143/68 H 04/13/23 11:49 Pulse Ox 99 04/13/23 11:49 O2 Del Method Room Air 04/13/23 11:49 BMI result Body Mass Index 19.5 Gen: in no acute distress, chronically ill appearing with muscle wasting HEENT: sclera anicteric, moist mucus membranes Neck: supple Lungs: clear to auscultation bilaterally, R subclavian part Heart: regular rate and rhythm, no murmurs Abd: soft, epigastric tenderness without rebound, non-distended Ext: no edema Skin: warm/well-perfused Neuro: alert and oriented x3, no focal findings Psych: appropriate affect Objective Data Active Medications Acetaminophen (Acetaminophen 325 Mg Tablet) 650 mg PO Q6H PRN PRN Reason: Pain, Mild (Pain Scale 1-3) Albuterol Sulfate (Albuterol Sulfate 90 Mcg 8 Gm Inhaler) 2 puff INHALE Q4H PRN PRN Reason: Shortness Of Breath Or Wheezing Atorvastatin Calcium (Atorvastatin Calcium 80 Mg Tablet) 80 mg PO BEDTIME [place] Benzonatate (Benzonatate 100 Mg Capsule) 100 mg PO TID PRN PRN Reason: Cough Cyanocobalamin (Cyanocobalamin (Vitamin B-12) 1,000 Mcg Tablet) 1,000 mcg PO DAILY [facility] Last Admin: 04/13/23 09:15 Dose: 1,000 mcg Documented By: ONIEL Dexamethasone (Dexamethasone 4 Mg Tablet) 4 mg PO BID PRN PRN Reason: day 2 or 3 of chemo Docusate Sodium (Docusate Sodium 100 Mg Capsule) 100 mg PO DAILY PRN PRN Reason: Constipation Enoxaparin Sodium (Enoxaparin Sodium 40 Mg/0.4 Ml Syringe) 40 mg SUBCUT Q24H [facility] Last Admin: 04/13/23 09:22 Dose: 40 mg Documented By: ONIEL Fludrocortisone Acetate (Fludrocortisone Acetate 0.1 Mg Tablet) 0.1 mg PO DAILY [facility] Last Admin: 04/13/23 11:58 Dose: Not Given Documented By: JAMIE Non-Admin Reason: Patient Refused Ceftriaxone Sodium 1 gm/ (Sodium Chloride) 50 mls @ 100 mls/hr IV Q24H [facility] Last Infusion: 04/13/23 02:58 Dose: Infused Documented By: LU Lactated Ringer's (Lr) 1,000 mls @ 100 mls/hr IVCONT .Q10H [facility] Last Admin: 04/13/23 12:06 Dose: 100 mls/hr Documented By: JAMIE Loperamide HCl (Loperamide Hcl 2 Mg Capsule) 4 mg PO Q4H PRN PRN Reason: Diarrhea Loratadine (Loratadine 10 Mg Tablet) 10 mg PO DAILY PRN PRN Reason: Allergic Symptoms Melatonin (Melatonin 3 Mg Tablet) 6 mg PO BEDTIME PRN PRN Reason: Insomnia Midodrine (Midodrine Hcl 5 Mg Tablet) 5 mg PO TID [facility] Last Admin: 04/13/23 09:15 Dose: 5 mg Documented By: ONIEL Omeprazole (Omeprazole 20 Mg Capsule.Dr) 20 mg PO BID@0630,1630 [facility] Ondansetron HCl (Ondansetron Hcl 4 Mg/2 Ml Vial) 4 mg IVPUSH Q8H PRN PRN Reason: Nausea and Vomiting Last Admin: 04/13/23 09:32 Dose: 4 mg Documented By: ONIEL Oxycodone HCl (Oxycodone Hcl Immed Release 5 Mg Tablet) 5 mg PO QID PRN PRN Reason: Pain (Scale Score 4-6) Potassium Chloride (Potassium Chloride Er 20 Meq Tab.Er.Prt) 20 meq PO DAILY [facility] Last Admin: 04/13/23 09:15 Dose: 20 meq Documented By: ONIEL Prednisone (Prednisone 20 Mg Tablet) 60 mg PO DAILY PRN PRN Reason: day 1-5 of chemo Sodium Chloride (0.9 % Sodium Chloride Flush 3 Ml Syringe) 3 ml IVFLUSH QSHIFT [facility] Last Admin: 04/13/23 07:49 Dose: Not Given Documented By: ONIEL Non-Admin Reason: Med Not Available Sucralfate (Sucralfate Oral Suspension 1 Gm/10 Ml Oral.Susp) 1 gm PO TID [facility] Last Admin: 04/13/23 09:13 Dose: 1 gm Documented By: ONIEL Tiotropium [place] (Tiotropium [place] 2.5 Mcg 1 Puff/2.5 Mcg Mist.Inhal) 2 puff INHALE RDAILY [facility] Last Admin: 04/13/23 11:03 Dose: Not Given Documented By: KATHERINE Non-Admin Reason: Med Not Available Trimethoprim/Sulfamethoxazole (Sulfamethox/Trimeth 800/160 Tablet) 1 tab PO DAILY [facility] Last Admin: 04/13/23 09:15 Dose: 1 tab Documented By: ONIEL Vitamin D (Cholecalciferol (Vitamin D3) 25 Mcg Tablet) 125 mcg PO DAILY [facility] Last Admin: 04/13/23 09:15 Dose: 125 mcg Documented By: ONIEL Labs 04/13/23 06:37 04/13/23 06:37 Labs: Laboratory Results - last 24 hr 04/12/23 04/12/23 04/13/23 16:01 16:52 06:37 MCV 90.8 92.3 MCH 30.0 29.7 MCHC 33.1 32.1 RDW 17.5 H 17.6 H Plt Count 204 D 195 MPV 10.4 10.8 Immature Gran % (Auto) 3.9 H Neut % (Auto) 86.3 H Lymph % (Auto) 6.2 L Ness % (Auto) 3.3 Eos % (Auto) 0.0 Baso % (Auto) 0.3 Lymph # (Auto) 1.1 L Ness # (Auto) 0.6 Eos # (Auto) 0.0 Baso # (Auto) 0.1 Abs Immat Gran (auto) 0.69 H Absolute Neuts (auto) 15.3 H Absolute Nucleated RBC 0.000 0.000 Nucleated RBC % (auto) 0.0 0.0 Anion Gap 11 L 11 L Estim Creat Clear Calc 39.8 49.6 Estimated GFR > 60 > 60 Random Glucose 88 69 Calcium 7.9 L 7.7 L Magnesium 1.7 Total Bilirubin 0.3 Direct Bilirubin 0.2 AST 12 ALT 5 Alkaline Phosphatase 103 Total Protein 4.8 L Albumin 2.8 L Lipase 6 L Urine Color Yellow Urine Appearance Cloudy Urine pH 5.5 Ur Specific [place] 1.020 Urine Protein 30 (1+) H Urine Glucose (UA) Negative Urine Ketones Trace Urine Blood Negative Urine Nitrite Negative Ur Leukocyte Esterase Moderate (2+) H Urine RBC 0-2 Urine WBC >50 H Ur Squamous Epith Cells 11-20 Urine Bacteria 1+ Hyaline Casts 11-20 Influenza Type A (PCR) NEGATIVE Influenza Type B (PCR) NEGATIVE RSV RNA Qual (PCR) NEGATIVE SARS-CoV-2 RNA (RT-PCR) NEGATIVE Impressions Chest X-Ray 04/12/23 16:36 IMPRESSION: No acute cardiopulmonary process seen. Microbiology Microbiology Results: Microbiology 04/12/23 Unknown Urine Culture - Preliminary Urine clean catch - Urine huynh top Culture too young to evaluate. 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 [[facility] [place]- [place] Becerril], orthostatic hypotension, HLD, anemia presenting with 1d of N/V/abd pain admitted for UTI, PO intolerance, hypoK N/V/PO intolerance moderate protein-calorie malnutrition - trial of bland diet, supplements - continue IV fluids for maintenance - continue PPI + sucralfate UTI - ceftriaxone d2, follow UCx/BCx DLBCL - Onc consult - continue TMP-SMX for PCP ppx hypoK - repleted, monitor lytes daily anemia - chronic, due to lymphoma/chemotherapy Tn-I indeterminate - flat, no angina or EKG changes HLD - statin orthostatic hypotension - fludrocortisone, midodrine VTE ppx - LMWH dispo - TBD In my clinical judgment, the patient requires continued inpatient hospitalization for the following reasons: PO intolernace Total time managing care of this patient today: 40 minutes. Quality Stroke Does the patient have a stroke diagnosis?: No VTE Prior VTE?: No VTE Risk Level:: Medical - moderate - high VTE Device Contraindication: N/A - Device Ordered VTE Drug Contraindication: Treatment Not Indicated
[2023-04-13 14:34] VITALS: BMI 19.5
--- NOTE | 2023-04-13 14:49 | MHC.CLN ---
NUTRITION CONSULT FOR POOR INTAKE. DIET=REGULAR, BLAND. PER CONVERSATION WITH PATIENT VIA ROTARY ADJUSTER, ADDING MAGIC CUP BID. PROVIDES 580 KCALS, 18 G PROTEIN. QUALIFIES MODERATELY MALNOURISHED IN THE CONTEXT OF CHRONIC ILLNESS. SIGNIFICANT WEIGHT LOSS X 5 MONTHS AND MODERATE DEPLETION OF BODY FAT AND MUSCLE MASS. FOLLOW FOR DIET TOLERANCE AND INTAKE.
[2023-04-13] MEDS: Omeprazole 20 MG CAPSULE.DR PO (15:27)
[2023-04-13 15:50] VITALS: BP 127/67; PULSE 70; RESP 18; TEMP 36.7; O2SAT 100
--- NOTE | 2023-04-13 16:23 | P.CNHO_ITS ---
Subjective - Subjective Chief complaint: Consult for: GI distress. Gastric lymphoma. Patient: known to practice within the last 3 years Consult date: 04/13/23 Requesting Physician: Fabián. Primary Care Provider: Mis Gutierrez MD Medical Summary: DIAGNOSIS: GASTRIC LYMPHOMA. HPI - Consult Narrative Reason for consult: Consult for: Failure to thrive. Gastric lymphoma. Narrative: Delmy Ann is a 77 year old lady admitted with failure to thrive. Pt has a H/O Gastric?diffuse large B cell lymphoma currently on chemotherapy, anemia, orthostasis, and HLD. She presented to the ED with nausea, vomiting, abdominal pain of 1 day's duration. She has not been able to tolerate anything by mouth. The belly pain is located in the epigastric. She feels lightheaded and dizzy, She feels rather fatigued and has difficulty with movement. She has felt chills. She denies dysuria, polyuria, She has not been drinking fluids. No chest pain/pressure, palpitations. No shortness of breath. In the ED: BP of 97/56, otherwise vitals WNL. Labs were significant for leukocytosis of 17.7, H&H around baseline at 8.8/26.6, potassium 3.1, troponin 22.9. Otherwise unremarkable. UA positive for UTI. Tested negative for influenza types A and B, RSV, COVID. CXR showed no acute cariopulmonary process seen. Pt was treated with IVF, and potassium chloride. She was admitted to the hospital for treatment and further evaluation of adult failure to thrive and UTI in the setting of chemotherapy. Review of Systems - Constitutional Reports system reviewed and no additional complaints, except as documented, Reports anorexia, Reports body ache(s), Reports fatigue, Reports lack of energy, Reports malaise, Reports weakness, Denies fever(s), Denies headache(s) - Eyes Reports system reviewed and no additional complaints, except as documented - ENT Reports system reviewed and no additional complaints, except as documented - Cardiovascular Reports system reviewed and no additional complaints, except as documented, Denies chest pain - Respiratory Reports no additional respiratory complaints, Denies chest congestion - Gastrointestinal Reports system reviewed and no additional complaints, except as documented, Reports abdominal pain, Reports constipation, Reports feeling full early, Reports dyspepsia, Reports nausea, Reports vomiting - Genitourinary Reports no additional female genitourinary complaints, Denies abnormal vaginal bleeding - Musculoskeletal Reports system reviewed and no additional complaints, except as documented, Denies abnormal walking - Integumentary/Breasts Skin/Breast: Reports no additional skin complaints, Denies bleeding lesions - Neurologic Reports system reviewed and no additional complaints, except as documented - Psychiatric Reports system reviewed and no additional complaints, except as documented, Reports anxiety - Endocrine Reports no additional endocrine complaints, Denies excessive sweating - Hematologic/Lymphatic Reports system reviewed and no additional complaints, except as documented, Reports easy bleeding - Allergic/Immunologic Reports system reviewed and no additional complaints, except as documented [facility] Medical History: Medical History (Last Reviewed 04/12/23 @ 20:05 by ROSIBEL Guardado) Abnormal CT of the abdomen Anemia Asthma Kidney disease Stomach cancer Surgical History: Surgical History (Last Reviewed 04/12/23 @ 20:05 by ROSIBEL Guardado) History of bladder surgery History of cholecystectomy Hx of colonoscopy Tubal ligation status Social History: Social History (Last Reviewed 04/12/23 @ 20:05 by ROSIBEL Guardado) Living Situation History: Household Members: Children Housing: Apartment Do you presently have visiting nurse or other home services: Yes Do you presently have visiting nurse or other home services comment: [employer] Tobacco History: Patient Tobacco Use Status: Never used Tobacco e-Cigarette/Vaping Use: Never Used Second Hand Smoke Exposure: No Advance Directives: Advance Directives Date on File: 02/12/20 Occupation Assessmet: service: No 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al status: disabled 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: r handed Home Medications and Allergies Current Medications: Current Medications Acetaminophen (Acetaminophen 325 Mg Tablet) 650 mg PO Q6H PRN PRN Reason: Pain, Mild (Pain Scale 1-3) Albuterol Sulfate (Albuterol Sulfate 90 Mcg 8 Gm Inhaler) 2 puff INHALE Q4H PRN PRN Reason: Shortness Of Breath Or Wheezing Atorvastatin Calcium (Atorvastatin Calcium 80 Mg Tablet) 80 mg PO BEDTIME [facility] Benzonatate (Benzonatate 100 Mg Capsule) 100 mg PO TID PRN PRN Reason: Cough Cyanocobalamin (Cyanocobalamin (Vitamin B-12) 1,000 Mcg Tablet) 1,000 mcg PO DAILY [facility] Last Admin: 04/13/23 09:15 Dose: 1,000 mcg Dexamethasone (Dexamethasone 4 Mg Tablet) 4 mg PO BID PRN PRN Reason: day 2 or 3 of chemo Docusate Sodium (Docusate Sodium 100 Mg Capsule) 100 mg PO DAILY PRN PRN Reason: Constipation Enoxaparin Sodium (Enoxaparin Sodium 40 Mg/0.4 Ml Syringe) 40 mg SUBCUT Q24H [facility] Last Admin: 04/13/23 09:22 Dose: 40 mg Fludrocortisone Acetate (Fludrocortisone Acetate 0.1 Mg Tablet) 0.1 mg PO DAILY [facility] Last Admin: 04/13/23 11:58 Dose: Not Given Ceftriaxone Sodium 1 gm/ (Sodium Chloride) 50 mls @ 100 mls/hr IV Q24H [facility] Last Infusion: 04/13/23 02:58 Dose: Infused Lactated Ringer's (Lr) 1,000 mls @ 100 mls/hr IVCONT .Q10H [facility] Last Admin: 04/13/23 15:16 Dose: Not Given Loperamide HCl (Loperamide Hcl 2 Mg Capsule) 4 mg PO Q4H PRN PRN Reason: Diarrhea Loratadine (Loratadine 10 Mg Tablet) 10 mg PO DAILY PRN PRN Reason: Allergic Symptoms Melatonin (Melatonin 3 Mg Tablet) 6 mg PO BEDTIME PRN PRN Reason: Insomnia Midodrine (Midodrine Hcl 5 Mg Tablet) 5 mg PO TID [facility] Last Admin: 04/13/23 15:27 Dose: 5 mg Omeprazole (Omeprazole 20 Mg Capsule.Dr) 20 mg PO BID@0630,1630 [facility] Last Admin: 04/13/23 15:27 Dose: 20 mg Ondansetron HCl (Ondansetron Hcl 4 Mg/2 Ml Vial) 4 mg IVPUSH Q8H PRN PRN Reason: Nausea and Vomiting Last Admin: 04/13/23 09:32 Dose: 4 mg Oxycodone HCl (Oxycodone Hcl Immed Release 5 Mg Tablet) 5 mg PO QID PRN PRN Reason: Pain (Scale Score 4-6) Potassium Chloride (Potassium Chloride Er 20 Meq Tab.Er.Prt) 20 meq PO DAILY [facility] Last Admin: 04/13/23 09:15 Dose: 20 meq Prednisone (Prednisone 20 Mg Tablet) 60 mg PO DAILY PRN PRN Reason: day 1-5 of chemo Sodium Chloride (0.9 % Sodium Chloride Flush 3 Ml Syringe) 3 ml IVFLUSH QSHIFT [facility] Last Admin: 04/13/23 15:16 Dose: Not Given Sucralfate (Sucralfate Oral Suspension 1 Gm/10 Ml Oral.Susp) 1 gm PO TID [facility] Last Admin: 04/13/23 15:27 Dose: 1 gm Tiotropium [place] (Tiotropium [place] 2.5 Mcg 1 Puff/2.5 Mcg Mist.Inhal) 2 puff INHALE RDAILY [facility] Last Admin: 04/13/23 11:03 Dose: Not Given Trimethoprim/Sulfamethoxazole (Sulfamethox/Trimeth 800/160 Tablet) 1 tab PO DAILY [facility] Last Admin: 04/13/23 09:15 Dose: 1 tab Vitamin D (Cholecalciferol (Vitamin D3) 25 Mcg Tablet) 125 mcg PO DAILY [facility] Last Admin: 04/13/23 09:15 Dose: 125 mcg Home Medications Medication Instructions Recorded Confirmed Type albuterol sulfate 90 mcg/actuation 2 puff inhalation Q4H PRN 10/10/21 04/12/23 History aerosol inhaler Shortness Of Breath Or Wheezing atorvastatin 80 mg tablet 80 mg PO QPM 10/10/21 04/12/23 History cholecalciferol (vitamin D3) 125 125 mcg PO DAILY 10/10/21 04/12/23 History mcg (5,000 unit) tablet loratadine 10 mg tablet 10 mg PO DAILY PRN Allergic 10/10/21 04/12/23 History Symptoms fluticasone propionate 50 1 spray intranasal BID PRN Allergy 11/25/22 04/12/23 History mcg/actuation nasal Symptoms spray,suspension dexamethasone 4 mg tablet 4 mg PO BID PRN day 2 or 3 of chemo 01/29/23 04/12/23 History prednisone 20 mg tablet 60 mg PO DAILY PRN day 1-5 of chemo 01/29/23 04/12/23 History sulfamethoxazole 800 1 tab PO DAILY 02/23/23 04/12/23 History mg-trimethoprim 160 mg tablet cyanocobalamin (vitamin B-12) 1,000 mcg PO DAILY 03/09/23 04/12/23 History 1,000 mcg tablet midodrine 5 mg tablet 5 mg PO TID 03/09/23 04/12/23 History oxycodone 5 mg tablet 5 mg PO QID PRN Pain (Scale Score 03/09/23 04/12/23 History 4-6) umeclidinium 62.5 mcg/actuation 1 inh inhalation DAILY 03/09/23 04/12/23 History blister powder for inhalation (Incruse Ellipta) Allergies Allergy/AdvReac Type Severity Reaction Status Date / Time codeine [CODEINE] Allergy Intermediate RASH Verified 03/09/23 14:22 ibuprofen [From MOTRIN] Allergy Intermediate RASH Verified 03/09/23 14:22 Penicillins [PENICILLINS] Allergy Intermediate RASH Verified 03/09/23 14:22 pineapple Allergy Unknown Rash Verified 04/15/23 00:21 black pepper Allergy Rash Verified 04/15/23 05:16 motrin Allergy Unknown rash, Uncoded 03/09/23 14:22 swelling PCN Allergy Unknown rash, Uncoded 03/09/23 14:22 swelling Physical Exam Vital signs: Vital Signs Temp 98.0 F 04/13/23 15:50 Pulse 70 04/13/23 15:50 Resp 18 04/13/23 15:50 BP 127/67 04/13/23 15:50 Pulse Ox 100 04/13/23 15:50 O2 Del Method Room Air 04/13/23 15:50 Intake & Output 04/12/23 04/13/23 04/13/23 18:59 06:59 18:59 Intake Total 1490 / 1490 1240 / 1240 Balance 1490 / 1490 1240 / 1240 Intake: Intake, Oral Amount 240 / 240 240 / 240 Intake, IV Amount 1250 / 1250 1000 / 1000 0.9 % Sodium Chloride 1,000 ml 1000 / 1000 @ 999 mls/hr IV .Q1H1M [facility] Rx#: [id number] Potassium Chloride/H20 10 meq 200 / 200 In 100 ml @ 100 mls/hr IV Q1H [facility] Rx#:[id number] cefTRIAXone sodium 1 gm In 0.9 50 / 50 % Sodium Chloride 50 ml @ 100 mls/hr IV Q24H [facility] Rx#: [id number] Lactated Ringers 1,000 ml @ 100 1000 / 1000 mls/hr IVCONT .Q10H [facility] Rx#: [id number] Other: Number of Unmeasured Voids 2 Urine Bedside Commode Weight 45.359 kg 45.359 kg Weight 45.359 kg - Constitutional Present: no acute distress, moderate distress - Routine HEENT Exam Head: Present: normal inspection, normocephalic Eye: Present: normal appearance ENT: Present: mucous membranes moist - Routine Neck Exam Present: supple - Routine Respiratory Exam Present: CTAB - Routine Cardiovascular Exam Cardiovascular: Present: RRR, S1, S2 - Routine Abdominal Exam Present: tenderness - Routine Extremities Exam Present: nontender - Routine Skin Exam Present: intact - Routine Neurological Exam Present: alert, oriented X3 - Detailed Neurological Exam: Coma Scale Eye Opening: Spontaneous (4) Verbal Response: Oriented (5) Motor Response: Obeys commands (6) [place] Coma Scale Total: 15 - Routine Psychiatric Exam Present: depressed Hem/Onc Consult Result - Labs CBC & Chem 7: 04/15/23 06:30 04/15/23 06:30 Labs: Short CBC 04/13/23 Range/Units 06:37 WBC 12.0 H (4.8-10.8) X10*3/uL Hgb 8.1 L (12.0-16.0) g/dl Hct 25.2 L (37.0-47.0) % Plt Count 195 (160-400) X10*3/uL BMP 04/12/23 04/13/23 16:01 06:37 Sodium 143 145 Potassium 3.1 L 3.3 Chloride 107 112 H Carbon Dioxide 28 25 BUN 12 9 Creatinine 0.86 0.69 Calcium 7.9 L 7.7 L Liver Function 04/12/23 Range/Units 16:01 Total Bilirubin 0.3 (0.0-1.0) mg/dL Direct Bilirubin 0.2 (0.0-0.5) mg/dL AST 12 (5-31) U/L ALT 5 (0-31) U/L Alkaline Phosphatase 103 (39-117) U/L Albumin 2.8 L (3.5-5.0) g/dL Urine 04/12/23 Range/Units 16:52 Urine Color Yellow Urine Appearance Cloudy Urine pH 5.5 (5.0-9.0) Ur Specific [place] 1.020 (1.005-1.025) Urine Protein 30 (1+) H (Neg-Trace) mg/dL Urine Glucose (UA) Negative (Negative) mg/dL Assessment and Plan Patient Active problem list reviewed?: Yes (1) Gastric lymphoma Status: Acute Assessment and plan: This is a pleasant 77-year-old lady presented with abdominal pain, bloating anorexia and weight loss. She was noted to have a drop in hematocrit since last September, electrolytes are stable, low albumin. CT scan of the abdomen pelvis from 11/25: 1. Abnormal appearance of the stomach with diffuse wall thickening and enhancement, most prominent along the greater curvature of the stomach. There is associated perigastric fat stranding and edema and prominent mesenteric hyperemia. There are multiple large masses seen in the lesser sac, including 2 of the masses appearing completely solid and one of the masses appearing centrally hypoenhancing. Findings are suspicious for a primary gastric malignancy with associated metastatic adenopathy. Other entities, such as gastric lymphoma could be considered in the differential. Further assessment with endoscopy and biopsy is recommended. 2. Moderate sigmoid colonic diverticulosis with no evidence of acute diverticulitis. 3. Multiple tiny low-attenuation masses in the kidneys bilaterally, too small to characterize, but statistically most likely tiny cysts. 4. Moderate atherosclerotic vascular disease. 5. Diffuse fatty atrophy of the pancreas. She underwent an upper endoscopy by Dr. Caldwell. Findings: Her large polypoidal mass with central ulceration in the gastric body along the greater curvature extending from 36-58 cm and covering 75% of the gastric circumferential. Diffuse gastric erythema. Biopsies taken from antrum to check for H pylori. Pathology revealed: Diffuse large B cell lymphoma, nongerminal center type. FISH studies: Negative for BCL2, BCL6 and c-myc. However further immuno stains revealed: Reactive with MUM-1, C myc; 70%, BCL 2. 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 I shared the results with her and her daughter. Explained the details of the diagnosis treatment options, and good prognosis, since treatment would be curative. We have a few choices: According to the NCCN guidelines from 09/26, options include R-CHOP x3 followed by ISRT, for non bulky disease:<7.5 cm. Or R-CHOP x6 +/- ISRT, for bulky >7.5 cm. A relatively new regimen is the kadeem-R-CHP, which replaces the anti micro tubule drug Vincristine in R-CHOP with the novel agent Polatuzumab Vedotin. Kadeem is an antibody drug conjugate targeting the B-cell surface marker CD 79. I initiated staging workup. Her PET scan for initial staging on 01/16: 1. Asymmetric increase tracer avidity is noted with SUV max of 6.4 without evidence of any discrete mass involving the left tonsillar fossa, may represent reactive changes. 2. Significant mural thickening associated with intense FDG avidity involving the fundus and body of the stomach with SUV max of 20.7 consistent with gastric involvement in this patient with diffuse large B-cell lymphoma. Specific note is made of perigastric solid intense FDG avid lymph nodes within the lesser omentum/gastrohepatic ligament region as well as in the region of the common hepatic artery. The dominant lymph node measures 4.2 x 2.1 cm with SUV max of 45.4. 3. Note is also made of intense FDG avidity associated with circumferential mural thickening of the cecum and adjacent proximal ascending colon with SUV max of 11.2, for which direct visualization/colonoscopy is recommended for further clarification. 4. Apparent mild increase tracer avidity throughout the entire axial skeleton, may represent hyperplastic marrow versus bone marrow infiltration or combination thereof. 5. No evidence of any lung parenchymal or liver or splenic involvement. A baseline echocardiogram, revealed normal cardiac function. She has had a Port-A-Cath placed on 01/01, to facilitate the chemotherapy. l proceeded with a lumbar puncture for CSF evaluation.This came back negative. She was started on Kadeem R-CHP chemotherapy on 01/22. She did need a brief admission to the hospital with orthostatic hypotension and anemia. She required 2 units of blood. She was in house again between 02/25 and 03/02 for orthostatic hypertension. She has been started on fludrocortisone and mldodrin by Nephrology. She has started cycle 3, on 03/06. I did dose reduce her on view of the toxicity. PLAN: She was started on Clear liquid diet, to advance as tolerated. She has been started on maintenance fluids Nutrition consult has been requested. Hemoglobin is stable. To Continue on Zofran, sucralfate, prednisone, dexamethasone, omeprazole, and oxycodone. Hypokalemia: Potassium was 3.1. Likely secondary to dyhydration from GI losses and reduced p.o. intake. Received potassium IV supplemenation. K is up to 3.1. UTI: UA positive for UTI Being treated with ceftriaxone. She will be re-staged with imaging, now that she has had 3 cycles. jonatan got an opinion from radiation therapy, as well. She will be a candidate for consolidative radiation at the end. All her and her daughter's questions were answered to their satisfaction. Thank you, Cc: Mis Gutierrez. Addendum: 04/15: Hemoglobin dropped to 7.5. Will transfuse 1 unit of PRBC. - Time Spent With Patient Time Spent with Patient (in minutes): 30
[2023-04-13 20:00] VITALS: BP 111/58; PULSE 73; RESP 18; TEMP 36.7; O2SAT 97
[2023-04-13] MEDS: Atorvastatin Calcium 80 MG TABLET PO (20:10)
[2023-04-13] MEDS: cefTRIAXone sodium 1 GM in 0.9 % Sodium Chloride 50 ML IV (20:24)
[2023-04-14 03:06] VITALS: BP 88/56; PULSE 69; RESP 18; TEMP 36.9; O2SAT 97
[2023-04-14 03:31] VITALS: BP 90/50
--- NOTE | 2023-04-14 03:31 | PC.NURSE ---
Addendum entered by Susan Holbrook 04/14/23 04:38: Recheck BP after 1HR at 04:30 was 90/52 manually, asymptomatic . MD Stack was notified of the new BP. No new orders were given at this time. Will continue to monitor pt's BP. Original Note: Pt's BP manually 88/56 with no neurological symptoms, A&OX4. Pt on IVF LR at 100mls/hr and Midoline given per MAR at bedtime. MD Stack notified of the low BP. No new orders were given, just to repeat BP in 1 HR. Will continue to monitor pt's BP.
[2023-04-14 04:37] VITALS: BP 90/52
[2023-04-14] MEDS: Lactated Ringers 1,000 ML 100 ML IVCONT ×3 (05:22→19:38)
[2023-04-14] MEDS: Omeprazole 20 MG CAPSULE.DR PO (05:34)
[2023-04-14 06:43] LABS: Hematocrit 23.3 % (37.0-47.0); Hemoglobin 7.6 g/dl (12.0-16.0); Mean Corpuscular HGB Conc 32.6 g/dl (31.0-35.0); Mean Corpuscular Hemoglobin 30.3 pg (27.0-33.0); Mean Corpuscular Volume 92.8 fL (80.0-98.0); Mean Platelet Volume 10.8 fL (9.4-12.3); Platelet Count 198 X10*3/uL (160-400); Red Blood Count 2.51 X10*6/uL (4.20-5.50); Red Cell Distribution Width 17.3 % (11.0-16.0); White Blood Count 10.5 X10*3/uL (4.8-10.8)
[2023-04-14 06:57] LABS: Anion Gap 10 (12-20); Blood Urea Nitrogen 7 mg/dL (9-16); Calcium 7.6 mg/dL (8.4-10.2); Carbon Dioxide 26 mmol/L (22-29); Chloride 111 mmol/L (96-108); Creatinine Clr Calc Pharmacy 54.3; Estimated Glomerular Filt Rate > 60; Glucose Random 70 mg/dL (60-115); Magnesium 1.6 mg/dL (1.6-2.6); Phosphorus 2.1 mg/dL (2.7-4.5); Potassium 3.4 mmol/L (3.3-5.1); Sodium 144 mmol/L (135-145)
[2023-04-14] MEDS: Lactated Ringers 1,000 ML 999 ML IV (07:57)
[2023-04-14 08:00] VITALS: BP 94/55; PULSE 73; RESP 18; TEMP 37.1; O2SAT 96
[2023-04-14] MEDS: Tiotropium Bromide 2.5 mcg 1 PUFF/2.5 MCG MIST.INHAL 2 PUFF INHALE (09:21)
[2023-04-14] MEDS: Enoxaparin Sodium 40 MG/0.4 ML SYRINGE SUBCUT (09:22)
[2023-04-14] MEDS: Cholecalciferol (Vitamin D3) 25 MCG TABLET 125 MCG PO (09:23)
[2023-04-14] MEDS: Sucralfate Oral Suspension 1 GM/10 ML ORAL.SUSP PO ×3 (09:23→20:33)
[2023-04-14] MEDS: Midodrine HCl 5 MG TABLET PO ×3 (09:24→20:33)
[2023-04-14] MEDS: Sulfamethox/Trimeth 800/160 TABLET 1 TAB PO (09:24)
[2023-04-14] MEDS: Cyanocobalamin (Vitamin B-12) 1,000 MCG TABLET 1000 MCG PO (09:24)
[2023-04-14] MEDS: Fludrocortisone Acetate 0.1 MG TABLET PO (09:24)
[2023-04-14] MEDS: Potassium Chloride ER 20 MEQ TAB.ER.PRT PO (09:24)
--- NOTE | 2023-04-14 10:23 | HO.PM.IMPN ---
Subjective Subjective Date of Service: 04/14/23 Interval History: diarrhea resolved nausea improved tolerating some solids This history was taken in Hungarian from the patient. Review of Systems Review of Systems: Yes all other systems are reviewed and are negative Physical Exam Vital Signs: Vital Signs: Last Vital Signs Temp 98.7 F 04/14/23 08:00 Pulse 73 04/14/23 08:00 Resp 18 04/14/23 08:00 BP 94/55 L 04/14/23 08:00 Pulse Ox 96 04/14/23 08:00 O2 Del Method Room Air 04/14/23 08:00 BMI result Body Mass Index 19.5 Gen: in no acute distress, chronically ill appearing with muscle wasting HEENT: sclera anicteric, moist mucus membranes Neck: supple Lungs: clear to auscultation bilaterally, R subclavian part Heart: regular rate and rhythm, no murmurs Abd: soft, epigastric tenderness without rebound, non-distended Ext: no edema Skin: warm/well-perfused Neuro: alert and oriented x3, no focal findings Psych: appropriate affect Objective Data Active Medications Acetaminophen (Acetaminophen 325 Mg Tablet) 650 mg PO Q6H PRN PRN Reason: Pain, Mild (Pain Scale 1-3) Albuterol Sulfate (Albuterol Sulfate 90 Mcg 8 Gm Inhaler) 2 puff INHALE Q4H PRN PRN Reason: Shortness Of Breath Or Wheezing Atorvastatin Calcium (Atorvastatin Calcium 80 Mg Tablet) 80 mg PO BEDTIME [facility] Last Admin: 04/13/23 20:10 Dose: 80 mg Documented By: BEATRIS Benzonatate (Benzonatate 100 Mg Capsule) 100 mg PO TID PRN PRN Reason: Cough Cyanocobalamin (Cyanocobalamin (Vitamin B-12) 1,000 Mcg Tablet) 1,000 mcg PO DAILY [facility] Last Admin: 04/14/23 09:24 Dose: 1,000 mcg Documented By: HARMONY Dexamethasone (Dexamethasone 4 Mg Tablet) 4 mg PO BID PRN PRN Reason: day 2 or 3 of chemo Docusate Sodium (Docusate Sodium 100 Mg Capsule) 100 mg PO DAILY PRN PRN Reason: Constipation Enoxaparin Sodium (Enoxaparin Sodium 40 Mg/0.4 Ml Syringe) 40 mg SUBCUT Q24H [facility] Last Admin: 04/14/23 09:22 Dose: 40 mg Documented By: HARMONY Fludrocortisone Acetate (Fludrocortisone Acetate 0.1 Mg Tablet) 0.1 mg PO DAILY [facility] Last Admin: 04/14/23 09:24 Dose: 0.1 mg Documented By: HARMONY Ceftriaxone Sodium 1 gm/ (Sodium Chloride) 50 mls @ 100 mls/hr IV Q24H [facility] Last Infusion: 04/13/23 21:04 Dose: Infused Documented By: BEATRIS Lactated Ringer's (Lr) 1,000 mls @ 100 mls/hr IVCONT .Q10H [facility] Last Admin: 04/14/23 05:22 Dose: 100 mls/hr Documented By: BEATRIS Loperamide HCl (Loperamide Hcl 2 Mg Capsule) 4 mg PO Q4H PRN PRN Reason: Diarrhea Loratadine (Loratadine 10 Mg Tablet) 10 mg PO DAILY PRN PRN Reason: Allergic Symptoms Melatonin (Melatonin 3 Mg Tablet) 6 mg PO BEDTIME PRN PRN Reason: Insomnia Midodrine (Midodrine Hcl 5 Mg Tablet) 5 mg PO TID [facility] Last Admin: 04/14/23 09:24 Dose: 5 mg Documented By: HARMONY Omeprazole (Omeprazole 20 Mg Capsule.) 20 mg PO BID@0630,1630 [facility] Last Admin: 04/14/23 05:34 Dose: 20 mg Documented By: BEATRIS Ondansetron HCl (Ondansetron Hcl 4 Mg/2 Ml Vial) 4 mg IVPUSH Q8H PRN PRN Reason: Nausea and Vomiting Last Admin: 04/13/23 09:32 Dose: 4 mg Documented By: ONIEL Oxycodone HCl (Oxycodone Hcl Immed Release 5 Mg Tablet) 5 mg PO QID PRN PRN Reason: Pain (Scale Score 4-6) Potassium Chloride (Potassium Chloride Er 20 Meq Tab.Er.Prt) 20 meq PO DAILY [facility] Last Admin: 04/14/23 09:24 Dose: 20 meq Documented By: HARMONY Prednisone (Prednisone 20 Mg Tablet) 60 mg PO DAILY PRN PRN Reason: day 1-5 of chemo Sodium Chloride (0.9 % Sodium Chloride Flush 3 Ml Syringe) 3 ml IVFLUSH QSHIFT [facility] Last Admin: 04/14/23 09:15 Dose: Not Given Documented By: HARMONY Non-Admin Reason: IV Running Sucralfate (Sucralfate Oral Suspension 1 Gm/10 Ml Oral.Susp) 1 gm PO TID [facility] Last Admin: 04/14/23 09:23 Dose: 1 gm Documented By: HARMONY Tiotropium [place] (Tiotropium [place] 2.5 Mcg 1 Puff/2.5 Mcg Mist.Inhal) 2 puff INHALE RDAILY [facility] Last Admin: 04/14/23 09:21 Dose: 2 puff Documented By: HARMONY Trimethoprim/Sulfamethoxazole (Sulfamethox/Trimeth 800/160 Tablet) 1 tab PO DAILY [facility] Last Admin: 04/14/23 09:24 Dose: 1 tab Documented By: HARMONY Vitamin D (Cholecalciferol (Vitamin D3) 25 Mcg Tablet) 125 mcg PO DAILY [facility] Last Admin: 04/14/23 09:23 Dose: 125 mcg Documented By: HARMONY Labs 04/14/23 05:48 04/14/23 05:48 Labs: Laboratory Results - last 24 hr 04/14/23 05:48 MCV 92.8 MCH 30.3 MCHC 32.6 RDW 17.3 H Plt Count 198 MPV 10.8 Absolute Nucleated RBC 0.000 Nucleated RBC % (auto) 0.0 Anion Gap 10 L Estim Creat Clear Calc 54.3 Estimated GFR > 60 Random Glucose 70 Calcium 7.6 L Phosphorus 2.1 L Magnesium 1.6 Microbiology Microbiology Results: Microbiology 04/12/23 23:40 Blood Culture - Preliminary Blood - Venous No growth after 24 hours. 04/12/23 23:40 Blood Culture - Preliminary Blood - Venous No growth after 24 hours. 04/12/23 Unknown Urine Culture - Preliminary Urine clean catch - Urine huynh top Culture too young to evaluate. 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 [[facility] [place]- Dr Becerril], orthostatic hypotension, HLD, anemia presenting with 1d of N/V/abd pain admitted for UTI, PO intolerance, hypoK N/V/PO intolerance moderate protein-calorie malnutrition - continue solid diet + supplements - continue IV fluids for maintenance - continue PPI + sucralfate UTI - ceftriaxone d3, follow UCx/BCx anemia - chronic, due to lymphoma/chemotherapy - T+S with draw tomorrow in case needs transfusion hypoPO4 - replete, recheck in AM hypoK - repleted DLBCL - Onc consult - continue TMP-SMX for PCP ppx Tn-I indeterminate - flat, no angina or EKG changes HLD - statin orthostatic hypotension - fludrocortisone, midodrine VTE ppx - LMWH dispo - eventual home with VNA In my clinical judgment, the patient requires continued inpatient hospitalization for the following reasons: IV ABX Total time managing care of this patient today: 35 minutes. Quality Stroke Does the patient have a stroke diagnosis?: No VTE Prior VTE?: No VTE Risk Level:: Medical - moderate - high VTE Device Contraindication: N/A - Device Ordered VTE Drug Contraindication: Treatment Not Indicated
[2023-04-14] MEDS: Potassium Phosphate/NS 15 MMOL/250 ML PLAST..BAG 62.5 MMOL IV (12:13)
[2023-04-14 15:29] VITALS: BP 90/52; PULSE 75; RESP 18; TEMP 36.6; O2SAT 98
--- NOTE | 2023-04-14 16:21 | MHC.CM.PN ---
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
[2023-04-14 19:02] VITALS: BP 90/47; PULSE 74; RESP 20; TEMP 36.4; O2SAT 96
[2023-04-14] MEDS: cefTRIAXone sodium 1 GM in 0.9 % Sodium Chloride 50 ML IV (20:38)
[2023-04-15] VITALS (10 sets, daily range): BP systolic 90–96; BP diastolic 45–58; PULSE 62–85; RESP 16–18; TEMP 36–36.6; O2SAT 94–96
[2023-04-15] MEDS: Lactated Ringers 1,000 ML 100 ML IVCONT (04:43)
[2023-04-15] MEDS: Omeprazole 20 MG CAPSULE.DR PO ×2 (05:57→15:55)
[2023-04-15 07:48] LABS: Hematocrit 23.5 % (37.0-47.0); Hemoglobin 7.6 g/dl (12.0-16.0); Mean Corpuscular HGB Conc 32.3 g/dl (31.0-35.0); Mean Corpuscular Volume 92.9 fL (80.0-98.0); Mean Platelet Volume 10.7 fL (9.4-12.3); Platelet Count 203 X10*3/uL (160-400); Red Blood Count 2.53 X10*6/uL (4.20-5.50); Red Cell Distribution Width 17.7 % (11.0-16.0); White Blood Count 10.6 X10*3/uL (4.8-10.8)
[2023-04-15 08:04] LABS: Anion Gap 9 (12-20); Blood Urea Nitrogen 5 mg/dL (9-16); Calcium 7.5 mg/dL (8.4-10.2); Carbon Dioxide 26 mmol/L (22-29); Chloride 110 mmol/L (96-108); Creatinine Clr Calc Pharmacy 53.5; Estimated Glomerular Filt Rate > 60; Glucose Random 80 mg/dL (60-115); Phosphorus 2.2 mg/dL (2.7-4.5); Potassium 3.4 mmol/L (3.3-5.1); Sodium 142 mmol/L (135-145)
[2023-04-15 08:10] LABS: Magnesium 1.4 mg/dL (1.6-2.6)
[2023-04-15] MEDS: Tiotropium Bromide 2.5 mcg 1 PUFF/2.5 MCG MIST.INHAL 2 PUFF INHALE (08:45)
[2023-04-15] MEDS: Cholecalciferol (Vitamin D3) 25 MCG TABLET 125 MCG PO (08:54)
[2023-04-15] MEDS: Cyanocobalamin (Vitamin B-12) 1,000 MCG TABLET 1000 MCG PO (08:55)
[2023-04-15] MEDS: Midodrine HCl 5 MG TABLET PO ×3 (08:57→19:44)
[2023-04-15] MEDS: Sulfamethox/Trimeth 800/160 TABLET 1 TAB PO (08:57)
[2023-04-15] MEDS: Fludrocortisone Acetate 0.1 MG TABLET PO (08:57)
[2023-04-15] MEDS: Potassium Chloride ER 20 MEQ TAB.ER.PRT PO (09:01)
[2023-04-15] MEDS: Sucralfate Oral Suspension 1 GM/10 ML ORAL.SUSP PO ×3 (09:02→19:44)
[2023-04-15] MEDS: Enoxaparin Sodium 40 MG/0.4 ML SYRINGE SUBCUT (09:03)
[2023-04-15] MEDS: 0.9 % Sodium Chloride Flush 3 ML SYRINGE IVFLUSH ×3 (09:05→19:44)
[2023-04-15] MEDS: Magnesium Sulfate/H2O 2 GM/50 ML PIGGYBACK IV (09:06)
--- NOTE | 2023-04-15 09:36 | P.PNIM_ITS ---
Subjective Subjective Date of Service: 04/15/23 Interval History: This history was taken in A[place]i from the patient. Tolerating diet, no N/V/abd pain Mg + Hb low Review of Systems Review of Systems: Yes all other systems are reviewed and are negative Physical Exam 2 Vital Signs: Vital Signs: Last Vital Signs Temp 97.7 F 04/15/23 07:44 Pulse 76 04/15/23 08:47 Resp 18 04/15/23 08:47 BP 96/57 L 04/15/23 07:44 Pulse Ox 96 04/15/23 07:44 O2 Del Method Room Air 04/15/23 07:44 BMI result Body Mass Index 19.5 Gen: in no acute distress, muscle wasting HEENT: sclera anicteric, moist mucus membranes Neck: supple Lungs: clear to auscultation bilaterally, R subclavian part Heart: regular rate and rhythm, no murmurs Abd: soft, epigastric tenderness without rebound, non-distended Ext: no edema Skin: warm/well-perfused Neuro: alert and oriented x3, no focal findings Psych: appropriate affect Objective Data Active Medications Acetaminophen (Acetaminophen 325 Mg Tablet) 650 mg PO Q6H PRN PRN Reason: Pain, Mild (Pain Scale 1-3) Albuterol Sulfate (Albuterol Sulfate 90 Mcg 8 Gm Inhaler) 2 puff INHALE Q4H PRN PRN Reason: Shortness Of Breath Or Wheezing Atorvastatin Calcium (Atorvastatin Calcium 80 Mg Tablet) 80 mg PO BEDTIME [facility] Last Admin: 04/14/23 20:40 Dose: Not Given Documented By: BEATRIS Non-Admin Reason: Patient Refused Benzonatate (Benzonatate 100 Mg Capsule) 100 mg PO TID PRN PRN Reason: Cough Cyanocobalamin (Cyanocobalamin (Vitamin B-12) 1,000 Mcg Tablet) 1,000 mcg PO DAILY [facility] Last Admin: 04/15/23 08:55 Dose: 1,000 mcg Documented By: HARMONY Dexamethasone (Dexamethasone 4 Mg Tablet) 4 mg PO BID PRN PRN Reason: day 2 or 3 of chemo Docusate Sodium (Docusate Sodium 100 Mg Capsule) 100 mg PO DAILY PRN PRN Reason: Constipation Enoxaparin Sodium (Enoxaparin Sodium 40 Mg/0.4 Ml Syringe) 40 mg SUBCUT Q24H [facility] Last Admin: 04/15/23 09:03 Dose: 40 mg Documented By: AHRMONY Fludrocortisone Acetate (Fludrocortisone Acetate 0.1 Mg Tablet) 0.1 mg PO DAILY [facility] Last Admin: 04/15/23 08:57 Dose: 0.1 mg Documented By: HARMONY Ceftriaxone Sodium 1 gm/ (Sodium Chloride) 50 mls @ 100 mls/hr IV Q24H [facility] Last Infusion: 04/14/23 21:15 Dose: Infused Documented By: BEATRIS Magnesium Sulfate (Magnesium Sulfate/H2o) 2 gm in 50 mls @ 25 mls/hr IV ONCE ONE Stop: 04/15/23 10:09 Last Admin: 04/15/23 09:06 Dose: 25 mls/hr Documented By: HARMONY Sodium Chloride (Ns) 100 mls @ 100 mls/hr IV ONCE ONE Stop: 04/15/23 10:18 Loperamide HCl (Loperamide Hcl 2 Mg Capsule) 4 mg PO Q4H PRN PRN Reason: Diarrhea Loratadine (Loratadine 10 Mg Tablet) 10 mg PO DAILY PRN PRN Reason: Allergic Symptoms Melatonin (Melatonin 3 Mg Tablet) 6 mg PO BEDTIME PRN PRN Reason: Insomnia Midodrine (Midodrine Hcl 5 Mg Tablet) 5 mg PO TID [facility] Last Admin: 04/15/23 08:57 Dose: 5 mg Documented By: HARMONY Omeprazole (Omeprazole 20 Mg Capsule.Dr) 20 mg PO BID@0630,1630 [facility] Last Admin: 04/15/23 05:57 Dose: 20 mg Documented By: BEATRIS Ondansetron HCl (Ondansetron Hcl 4 Mg/2 Ml Vial) 4 mg IVPUSH Q8H PRN PRN Reason: Nausea and Vomiting Last Admin: 04/13/23 09:32 Dose: 4 mg Documented By: ONIEL Oxycodone HCl (Oxycodone Hcl Immed Release 5 Mg Tablet) 5 mg PO QID PRN PRN Reason: Pain (Scale Score 4-6) Potassium Chloride (Potassium Chloride Er 20 Meq Tab.Er.Prt) 20 meq PO DAILY [facility] Last Admin: 04/15/23 09:01 Dose: 20 meq Documented By: HARMONY Prednisone (Prednisone 20 Mg Tablet) 60 mg PO DAILY PRN PRN Reason: day 1-5 of chemo Sodium Chloride (0.9 % Sodium Chloride Flush 3 Ml Syringe) 3 ml IVFLUSH QSHIFT [facility] Last Admin: 04/15/23 09:05 Dose: 3 ml Documented By: HARMONY Sucralfate (Sucralfate Oral Suspension 1 Gm/10 Ml Oral.Susp) 1 gm PO TID [facility] Last Admin: 04/15/23 09:02 Dose: 1 gm Documented By: HARMONY Tiotropium [place] (Tiotropium [place] 2.5 Mcg 1 Puff/2.5 Mcg Mist.Inhal) 2 puff INHALE RDAILY [facility] Last Admin: 04/15/23 08:45 Dose: 2 puff Documented By: HARMAN Trimethoprim/Sulfamethoxazole (Sulfamethox/Trimeth 800/160 Tablet) 1 tab PO DAILY [facility] Last Admin: 04/15/23 08:57 Dose: 1 tab Documented By: HARMONY Vitamin D (Cholecalciferol (Vitamin D3) 25 Mcg Tablet) 125 mcg PO DAILY [facility] Last Admin: 04/15/23 08:54 Dose: 125 mcg Documented By: HARMONY Labs 04/15/23 06:30 04/15/23 06:30 Labs: Laboratory Results - last 24 hr 04/15/23 06:30 MCV 92.9 MCH 30.0 MCHC 32.3 RDW 17.7 H Plt Count 203 MPV 10.7 Absolute Nucleated RBC 0.000 Nucleated RBC % (auto) 0.0 Anion Gap 9 L Estim Creat Clear Calc 53.5 Estimated GFR > 60 Random Glucose 80 Calcium 7.5 L Phosphorus 2.2 L Magnesium 1.4 L* Blood Type O Positive Antibody Screen NEGATIVE Crossmatch See Detail Microbiology Microbiology Results: Microbiology 04/12/23 23:40 Blood Culture - Preliminary Blood - Venous No growth after 48 hours. 04/12/23 23:40 Blood Culture - Preliminary Blood - Venous No growth after 48 hours. 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 [[facility]- Dr Becerril], orthostatic hypotension, HLD, anemia presenting with 1d of N/V/abd pain admitted for UTI, PO intolerance, hypoK N/V/PO intolerance moderate protein-calorie malnutrition - tolerating solid diet + supplements - d/c IV fluids - continue PPI + sucralfate UTI - ceftriaxone d4, UCx mixed jorge a, d/c on cefuroxime, total 7d chronic anemia due to lymphoma + chemotherapy - transfuse 1u pRBCs today, recheck CBC in AM hypoMg - replete, recheck in AM hypoPO4 - replete, recheck in AM hypoK - repleted DLBCL - Onc consulted + updated - continue TMP-SMX for PCP ppx Tn-I indeterminate - flat, no angina or EKG changes HLD - statin orthostatic hypotension - fludrocortisone, midodrine VTE ppx - LMWH dispo - eventual home with [facility]NA, likely tomorrow In my clinical judgment, the patient requires continued inpatient hospitalization for the following reasons: transfusion, IV Mg Total time managing care of this patient today: 35 minutes. Quality Stroke Does the patient have a stroke diagnosis?: No VTE Prior VTE?: No VTE Risk Level:: Medical - moderate - high VTE Device Contraindication: N/A - Device Ordered VTE Drug Contraindication: Treatment Not Indicated
[2023-04-15] MEDS: Sodium,Potassium Phosphates POWD.PACK 2 PACKET PO (11:35)
[2023-04-15] MEDS: Atorvastatin Calcium 80 MG TABLET PO (19:44)
[2023-04-15] MEDS: cefTRIAXone sodium 1 GM in 0.9 % Sodium Chloride 50 ML IV (19:44)
[2023-04-16 03:18] VITALS: BP 106/55; PULSE 64; RESP 16; TEMP 37.1; O2SAT 97
[2023-04-16] MEDS: Omeprazole 20 MG CAPSULE.DR PO (05:06)
[2023-04-16 06:22] LABS: Hematocrit 33.4 % (37.0-47.0); Hemoglobin 10.9 g/dl (12.0-16.0); Mean Corpuscular HGB Conc 32.6 g/dl (31.0-35.0); Mean Corpuscular Hemoglobin 29.1 pg (27.0-33.0); Mean Corpuscular Volume 89.3 fL (80.0-98.0); Mean Platelet Volume 10.3 fL (9.4-12.3); Platelet Count 211 X10*3/uL (160-400); Red Blood Count 3.74 X10*6/uL (4.20-5.50); Red Cell Distribution Width 19.5 % (11.0-16.0)
[2023-04-16 06:27] LABS: Anion Gap 11 (12-20); Blood Urea Nitrogen 4 mg/dL (9-16); Calcium 7.8 mg/dL (8.4-10.2); Carbon Dioxide 26 mmol/L (22-29); Chloride 111 mmol/L (96-108); Creatinine Clr Calc Pharmacy 49.6; Estimated Glomerular Filt Rate > 60; Glucose Random 80 mg/dL (60-115); Magnesium 1.9 mg/dL (1.6-2.6); Phosphorus 2.1 mg/dL (2.7-4.5); Potassium 4.3 mmol/L (3.3-5.1); Sodium 144 mmol/L (135-145)
[2023-04-16 07:11] VITALS: BP 98/56; PULSE 67; RESP 16; TEMP 36.1; O2SAT 98
[2023-04-16] MEDS: Tiotropium Bromide 2.5 mcg 1 PUFF/2.5 MCG MIST.INHAL 2 PUFF INHALE (07:26)
[2023-04-16 07:27] VITALS: PULSE 78; RESP 18; O2SAT 94
[2023-04-16] MEDS: Sucralfate Oral Suspension 1 GM/10 ML ORAL.SUSP PO (09:50)
[2023-04-16] MEDS: Enoxaparin Sodium 40 MG/0.4 ML SYRINGE SUBCUT (09:50)
[2023-04-16] MEDS: Sulfamethox/Trimeth 800/160 TABLET 1 TAB PO (09:50)
[2023-04-16] MEDS: Fludrocortisone Acetate 0.1 MG TABLET PO (09:50)
[2023-04-16] MEDS: Potassium Chloride ER 20 MEQ TAB.ER.PRT PO (09:50)
[2023-04-16] MEDS: 0.9 % Sodium Chloride Flush 3 ML SYRINGE IVFLUSH (09:50)
[2023-04-16] MEDS: Cyanocobalamin (Vitamin B-12) 1,000 MCG TABLET 1000 MCG PO (09:50)
[2023-04-16] MEDS: Cholecalciferol (Vitamin D3) 25 MCG TABLET 125 MCG PO (09:51)
[2023-04-16] MEDS: Midodrine HCl 5 MG TABLET PO (09:51)
--- NOTE | 2023-04-16 10:40 | P.F2F_ITS ---
Service Date Service Date: 04/16/23 Encounter Date of encounter: 04/16/23 Reasons for Services Signs and symptoms assessed: anemia weakness Reason for senior care: central line care, medication management, medication treatment and teach disease management Reason for physical therapy: home safety and mobility, therapeutic exercises, gait/transfer training, assess need for DME, ADL training and energy conservation MD Overseeing Care: Mis Gutierrez Homebound: Leaving the home is medically contraindicated at this time without the asist of a device and/or another person due th the listed conditions above and below. Reason homebound: unsteady gait / fall risk, immunosuppression / infection risk and weakness related to hospital stay Certification: Based on the above findings, I certify that this patient is confined to the home and needs intermittent senior care care, physical therapy and/or speech therapy, or continues to need occupational therapy. The patient is under my care, and I have initiated the establishment of the plan of care. The patient will be followed by a physician who will periodically review the plan of care. Time Spent With Patient Time: Total time managing care of this patient today ____ minutes.
--- NOTE | 2023-04-16 10:47 | PM.DS ---
DS: Providers Provider Date of Service: 04/16/23 Date of admission: 04/12/23 19:38 Date of discharge: 04/16/23 Primary care physician: Mis Gutierrez MD Consults: 04/12/23 19:42 Consult to Hematology / Oncology Routine Consulting Provider: Rowena Becerril Reason for consultation: Hypokalemia, UTI in pt with B cell lymphoma DS: Diagnosis Discharge Diagnosis (1) Gastric lymphoma: Status: Acute (2) UTI (urinary tract infection): Status: Acute (3) Chronic abdominal pain: Status: Acute (4) Anorexia: Status: Acute (5) Nausea and vomiting: Status: Acute (6) Hypomagnesemia: Status: Acute (7) Hypophosphatemia: Status: Acute (8) Hypokalemia: Status: Acute (9) Moderate protein malnutrition: Status: Acute DS: Summary Hospital Course Hospital Course: From the history and physical by the admitting hospitalist, ROSIBEL Rachel, 04/12/23: Pt is a [place] Citizen-speaking 77-year-old female with a PMH significant for?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 Becerril, anemia, orthostasis, and HLD who presents to the ED with nausea, vomiting, abdominal pain since yesterday. Patient states since yesterday evening she has been unable to tolerate anything by mouth. States stomach pain is located ?in my stomach where I have cancer?, has had some lightheadedness and dizziness, especially yesterday, and difficulty with ambulating secondary to increased fatigue. Also reports subjective fever and chills. Denies dysuria, polyuria, but states she has not been drinking fluids. No chest pain/pressure, palpitations. No shortness of breath. In the ED pt with soft BP of 97/56, otherwise vitals WNL. Labs were significant for leukocytosis of 17.7, H&H around baseline at 8.8/26.6, potassium 3.1, troponin 22.9. Otherwise unremarkable. UA positive for UTI. Tested negative for influenza types A and B, RSV, COVID. CXR showed no acute cariopulmonary process seen. Pt was treated with IVF, and potassium chloride. Pt will be admitted to the hospital for treatment and further evaluation of adult failure to thrive and UTI in the setting of patient on chemotherapy. ' 77yo F with diffuse large B cell gastric lymphoma on chemotherapy [[facility]- Dr Becerril], orthostatic hypotension, HLD, and anemia presenting with 1d of N/V/abd pain was admitted to the medical-surgical unit for UTI, PO intolerance, and hypoK. Hospital course by problem: N/V/PO intolerance moderate protein-calorie malnutrition - Given IV fluids + antiemetics and started on clear liquid diet, which was advanced to the point where she was tolerating solid diet + supplements UTI - Got 4 days of IV ceftriaxone. UCx grew mixed jorge a. Discharged on 3 days of PO cefdinir. chronic anemia due to lymphoma + chemotherapy - Transfused 1u pRBCs 04/15 for Hb 7.6, recovered to 10.9 hypoMg - Repleted hypoPO4 - Repleted hypoK - Repleted; on maintenance oral dose DLBCL - The patient will follow up with Dr Becerril, her oncologist, on 04/17/23, to continue chemotherapy. Time Attestation Discharge coordination time: Greater than 30 minutes Quality: Safe Use of Opioids Does Pt have an Active Cancer Diagnosis on the Problem List?: Yes Opioid Measure Date for [facility] Report: 03/17/23 Opioid Measure Time for [facility] Report: 10:53 Quality: Stroke Does the patient have a stroke diagnosis?: No Physical Exam Vital Signs: Vital Signs: Last Vital Signs Temp 97 F 04/16/23 07:11 Pulse 78 04/16/23 07:27 Resp 18 04/16/23 07:27 BP 98/56 L 04/16/23 07:11 Pulse Ox 98 04/16/23 07:11 O2 Del Method Room Air 04/16/23 07:11 BMI result Body Mass Index 19.5 Gen: in no acute distress, muscle wasting HEENT: sclera anicteric, moist mucus membranes Neck: supple Lungs: clear to auscultation bilaterally, R subclavian part Heart: regular rate and rhythm, no murmurs Abd: soft, epigastric tenderness without rebound, non-distended Ext: no edema Skin: warm/well-perfused Neuro: alert and oriented x3, no focal findings Psych: appropriate affect DS: Data Data Completed and Pending Completed studies during hospitalization [Text1]: Laboratory Results WBC 11.0 X10*3/uL (4.8-10.8) H 04/16/23 05:43 RBC 3.74 X10*6/uL (4.20-5.50) L D 04/16/23 05:43 Hgb 10.9 g/dl (12.0-16.0) L D 04/16/23 05:43 Hct 33.4 % (37.0-47.0) L D 04/16/23 05:43 MCV 89.3 fL (80.0-98.0) 04/16/23 05:43 MCH 29.1 pg (27.0-33.0) 04/16/23 05:43 MCHC 32.6 g/dl (31.0-35.0) 04/16/23 05:43 RDW 19.5 % (11.0-16.0) H 04/16/23 05:43 Plt Count 211 X10*3/uL (160-400) 04/16/23 05:43 MPV 10.3 fL (9.4-12.3) 04/16/23 05:43 Immature Gran % (Auto) 3.9 % (0.0-0.4) H 04/12/23 16:01 Neut % (Auto) 86.3 % (45-73) H 04/12/23 16:01 Lymph % (Auto) 6.2 % (20-40) L 04/12/23 16:01 [place] % (Auto) 3.3 % (2-11) 04/12/23 16:01 Eos % (Auto) 0.0 % (0-4) 04/12/23 16:01 Baso % (Auto) 0.3 % (0-2) 04/12/23 16:01 Lymph # (Auto) 1.1 X10*3/uL (1.2-4.9) L 04/12/23 16:01 [place] # (Auto) 0.6 X10*3/uL (0.1-1.2) 04/12/23 16:01 Eos # (Auto) 0.0 X10*3/uL (0.0-0.4) 04/12/23 16:01 Baso # (Auto) 0.1 X10*3/uL (0.0-0.2) 04/12/23 16:01 Abs Immat Gran (auto) 0.69 X10*3/uL (0.00-0.03) H 04/12/23 16:01 Absolute Neuts (auto) 15.3 x10*3/uL (2.0-8.3) H 04/12/23 16:01 Absolute Nucleated RBC 0.000 X10*3/uL (0.0-0.012) 04/16/23 05:43 Nucleated RBC % (auto) 0.0 /100WBC (0.0-0.2) 04/16/23 05:43 Sodium 144 mmol/L (135-145) 04/16/23 05:43 Potassium 4.3 mmol/L (3.3-5.1) D 04/16/23 05:43 Chloride 111 mmol/L (96-108) H 04/16/23 05:43 Carbon Dioxide 26 mmol/L (22-29) 04/16/23 05:43 Anion Gap 11 (12-20) L 04/16/23 05:43 BUN 4 mg/dL (9-16) L 04/16/23 05:43 Creatinine 0.69 mg/dL (0.5-1.4) 04/16/23 05:43 Estim Creat Clear Calc 49.6 04/16/23 05:43 Estimated GFR > 60 04/16/23 05:43 Random Glucose 80 mg/dL (60-115) 04/16/23 05:43 Calcium 7.8 mg/dL (8.4-10.2) L 04/16/23 05:43 Phosphorus 2.1 mg/dL (2.7-4.5) L 04/16/23 05:43 Magnesium 1.9 mg/dL (1.6-2.6) 04/16/23 05:43 Total Bilirubin 0.3 mg/dL (0.0-1.0) 04/12/23 16:01 Direct Bilirubin 0.2 mg/dL (0.0-0.5) 04/12/23 16:01 AST 12 U/L (5-31) 04/12/23 16:01 ALT 5 U/L (0-31) 04/12/23 16:01 Alkaline Phosphatase 103 U/L (39-117) 04/12/23 16:01 Troponin I High Sens 26.0 ng/L (<3.5-17.0) H 04/12/23 21:10 Total Protein 4.8 g/dL (6.5-8.0) L 04/12/23 16:01 Albumin 2.8 g/dL (3.5-5.0) L 04/12/23 16:01 Lipase 6 U/L (8-78) L 04/12/23 16:01 Urine Color Yellow 04/12/23 16:52 Urine Appearance Cloudy 04/12/23 16:52 Urine pH 5.5 (5.0-9.0) 04/12/23 16:52 Ur Specific [place] 1.020 (1.005-1.025) 04/12/23 16:52 Urine Protein 30 (1+) mg/dL (Neg-Trace) H 04/12/23 16:52 Urine Glucose (UA) Negative mg/dL (Negative) 04/12/23 16:52 Urine Ketones Trace mg/dL (Negative) 04/12/23 16:52 Urine Blood Negative (Negative) 04/12/23 16:52 Urine Nitrite Negative (Negative) 04/12/23 16:52 Ur Leukocyte Esterase Moderate (2+) (Negative) H 04/12/23 16:52 Urine RBC 0-2 /HPF (0-2) 04/12/23 16:52 Urine WBC >50 /HPF (0-5) H 04/12/23 16:52 Ur Squamous Epith Cells 11-20 /HPF (0-2) 04/12/23 16:52 Urine Bacteria 1+ (None Seen) 04/12/23 16:52 Hyaline Casts 11-20 /LPF (0-2) 04/12/23 16:52 Influenza Type A (PCR) NEGATIVE (Negative) 04/12/23 16:01 Influenza Type B (PCR) NEGATIVE (Negative) 04/12/23 16:01 RSV RNA Qual (PCR) NEGATIVE (Negative) 04/12/23 16:01 SARS-CoV-2 RNA (RT-PCR) NEGATIVE (Negative) 04/12/23 16:01 Blood Type O Positive 04/15/23 06:30 Antibody Screen NEGATIVE 04/15/23 06:30 Crossmatch See Detail 04/15/23 06:30 Impressions Chest X-Ray 04/12/23 16:36 IMPRESSION: No acute cardiopulmonary process seen. Discharge Plan Discharge Anticipated Discharge Date/Time: 04/16/23 10:43 Patient Disposition: Home Health Service Discharge Diagnosis: nausea/vomiting anemia UTI gastric lymphoma Referrals: Rowena Becerril MD [Physician] - 1 Day Mis Gutierrez MD [Primary Care Provider] - 1 Week Discharge Medications: New cefdinir 300 mg capsule 300 mg PO BID Qty: 6 0RF Continued fluticasone propionate 50 mcg/actuation spray,suspension 1 spray intranasal BID PRN (Reason: Allergy Symptoms) sulfamethoxazole-trimethoprim 800-160 mg tablet 1 tab PO DAILY fludrocortisone 0.1 mg Tablet 0.1 mg PO DAILY Qty: 30 0RF potassium chloride 10 mEq Capsule, Extended Release 20 meq PO DAILY Qty: 30 4RF dexamethasone 4 mg tablet 4 mg PO BID PRN (Reason: day 2 or 3 of chemo) Rx Instructions: Take 4 mg p.o. b.i.d. days 2 and 3 of chemo, Q 21 days. prednisone 20 mg tablet 60 mg PO DAILY PRN (Reason: day 1-5 of chemo) Rx Instructions: take 60 mg p.o. daily days 1-5 of chemotherapy Q 21 days. ondansetron 8 mg tablet,disintegrating 8 mg PO Q8H PRN (Reason: Nausea) Qty: 30 3RF albuterol sulfate 90 mcg/actuation HFA aerosol inhaler 2 puff inhalation Q4H PRN (Reason: Shortness Of Breath Or Wheezing) atorvastatin 80 mg tablet 80 mg PO QPM cholecalciferol (vitamin D3) 125 mcg (5,000 unit) tablet 125 mcg PO DAILY loratadine 10 mg tablet 10 mg PO DAILY PRN (Reason: Allergic Symptoms) Incruse Ellipta 62.5 mcg/actuation blister with device 1 inh inhalation DAILY midodrine 5 mg tablet 5 mg PO TID oxycodone 5 mg tablet 5 mg PO QID PRN (Reason: Pain (Scale Score 4-6)) cyanocobalamin (vitamin B-12) 1,000 mcg tablet 1,000 mcg PO DAILY omeprazole 20 mg capsule,delayed release(DR/EC) 20 mg PO BID 90 Days Qty: 180 0RF sucralfate 100 mg/mL suspension 10 ml PO TID Qty: 1000 0RF Discharge Orders: Discharge Order (Routine); Ordered 04/16/23 Ordered By: Jason Lockwood Diet: Advance to usual diet Activity on Discharge: As tolerated Stand Alone Forms: Patient Portal Discharge page Care Plan Goals: cure of UTI relief of nausea/vomiting lymphoma treatment Health Concerns: nausea/vomiting anemia UTI gastric lymphoma Plan of Treatment: resume diet, use ondansetron as needed for nausea and vomiting take cefdinir 300 mg 2x a day for 3 [address] Becerril at [facility] Hematology-Oncology on 04/17/23 Please follow up with your primary care doctor within 1 week. Return to the hospital if you experience recurrent or worsening symptoms. Assessment: See Discharge Summary.
--- NOTE | 2023-04-16 11:16 | MHC.CM.PN ---
DP: PT HAS BEEN MEDICALLY CLEARED FOR DC HOME WITH NEW [facility] SERVICES. [facility] ([facility]) HAS APPROVED SERVICES AND PER [facility], DME (HOSPITAL BED AND COMMODE) ARE IN PROCESS. PT UPDATED. [facility] UPDATED ON TODAY'S DC. [facility] WILL TRANSPORT HOME.
== END 2023-04-16 12:52 | disposition home health service (06) | DRG 690 ==
LOC: HO.ED 19:26 → HO.EDOVER 19:52 → HO.S3 04-13 10:05
PROVIDERS: Physician Assistant; Physician Assistant Medical; Admitting Provider Student in an Organized Health Care Education/Training Program; Emergency Provider Internal Medicine; PCP Family Medicine; Visit Provider Family Medicine
DX: N39.0 Urinary tract infection, site not specified (principal); C83.39 Diffuse large B-cell lymphoma, extranodal and solid organ sites; E44.0 Moderate protein-calorie malnutrition; Z68.1 Body mass index [BMI] 19.9 or less, adult; G89.3 Neoplasm related pain (acute) (chronic); E83.39 Other disorders of phosphorus metabolism; D64.81 Anemia due to antineoplastic chemotherapy; T45.1X5A Adverse effect of antineoplastic and immunosuppressive drugs, initial encounter; R62.7 Adult failure to thrive; I95.1 Orthostatic hypotension; E78.5 Hyperlipidemia, unspecified; E87.6 Hypokalemia; E86.0 Dehydration; Z20.822 Contact with and (suspected) exposure to COVID-19; Z79.899 Other long term (current) drug therapy
CPT/HCPCS: 0241U; 36415; 71045; 80048; 80076; 81001; 81003; 83690; 83735; 84100; 84484; 85025; 85027; 86850; 86900; 86901; 86923; 87040; 87086; 93005; 94640; 99285; J0696; J1650; J2405; J3475; J3480; J7120; P9016

== ENCOUNTER → 2023-04-12 14:25 | Outpatient (BNV) | payer OTHER, SELFPAY | PROVIDERS: Admitting Provider Student in an Organized Health Care Education/Training Program; Emergency Provider Internal Medicine; PCP Family Medicine; Visit Provider Internal Medicine | DX: R94.31 Abnormal electrocardiogram [ECG] [EKG] (principal) | CPT/HCPCS: 93010 ==

== ENCOUNTER → 2023-04-12 19:38 | Outpatient (BNV) | payer OTHER, SELFPAY | PROVIDERS: Admitting Provider Student in an Organized Health Care Education/Training Program; Emergency Provider Internal Medicine; Visit Provider Student in an Organized Health Care Education/Training Program | DX: C85.99 Non-Hodgkin lymphoma, unspecified, extranodal and solid organ sites (principal); E44.0 Moderate protein-calorie malnutrition; N39.0 Urinary tract infection, site not specified; R10.9 Unspecified abdominal pain; G89.29 Other chronic pain; R63.0 Anorexia; R11.2 Nausea with vomiting, unspecified; E83.42 Hypomagnesemia; E83.39 Other disorders of phosphorus metabolism; E87.6 Hypokalemia | CPT/HCPCS: 99223; 99232; 99239; G0180 ==

== ENCOUNTER → 2023-04-12 19:38 | Outpatient (BNV) | payer OTHER, SELFPAY | PROVIDERS: Admitting Provider Student in an Organized Health Care Education/Training Program; Emergency Provider Internal Medicine; PCP Family Medicine; Visit Provider Internal Medicine Medical Oncology | DX: C85.80 Other specified types of non-Hodgkin lymphoma, unspecified site (principal) | CPT/HCPCS: 99222 ==

== ENCOUNTER 2023-04-24 13:52 | Inpatient (IN) | payer OTHER, SELFPAY ==
--- NOTE | ~2023-04-24 | XR_ITS ---
EXAMINATION: XR CHEST CLINICAL INFORMATION: Neutropenic fever COMPARISON: Chest 04/12/2023. TECHNIQUE: Frontal view of the chest was obtained. FINDINGS: The lungs are well-expanded and clear of acute process. The heart size and pulmonary vascularity is normal. No gross bony abnormality seen. There is a right central venous port with its tip in distal SVC. No gross bony abnormality seen. XR/XR chest 1V IMPRESSION: Unremarkable chest examination.
--- NOTE | ~2023-04-24 | US_ITS ---
EXAMINATION: US VENOUS ULTRASOUND WITH DOPPLER LOWER EXTREMITY, BILATERAL CLINICAL INFORMATION: Bilateral lower extremity pain and swelling COMPARISON: None available. TECHNIQUE: Ultrasound of the deep veins is performed from the hip to the calf with compression sonography and color and pulse Doppler assessment. Spectral analysis with color-flow imaging is performed. FINDINGS: RIGHT: There is normal venous compression and respiratory variation. The visualized common femoral vein, superficial femoral vein, profunda femoral vein, popliteal vein, and the posterior tibial and peroneal veins shows no evidence of deep venous thrombosis. There is no significant popliteal fossa cyst. LEFT: There is normal venous compression and respiratory variation. The visualized common femoral vein, superficial femoral vein, profunda femoral vein, popliteal vein, and the posterior tibial and peroneal veins shows no evidence of deep venous thrombosis. US/US venous duplex LE BI IMPRESSION: No DVT demonstrated in the right and left lower extremity.
--- NOTE | 2023-04-24 14:00 | P.HPHOSP_ITS ---
<Statement entered by Iwona Suarez MD - 05/02/23 11:30> The patient was seen and evaluated with ROSIBEL Trejo. I agree with her note, assessment and plan with the following. In summary, A 77 years old lady with PMH of diffuse large B-cell lymphoma of stomach on chemotherapy, chronic anemia, orthostasis, hyperlipidemia, and asthma admitted directly from Oncology due to GI bleed with thrombocytopenia. #Acute blood loss anemia Transfused 1 unit, Per GI, colonoscopy tomorrow Golytely at 6pm, NPO after midnight #Pancytopenia 2/2 malignancy and to transfuse 1 unit platelets with colonoscopy Rest of evaluations by PA note. History of Present Illness Date of Service: 04/24/23 Attending physician on admission: Iwona Suarez Chief Complaint: GI bleed 77-year-old female with 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 Becerril, chronic anemia, orthostasis, hyperlipidemia, and asthma admitted directly from Oncology due to GI bleed with thrombocytopenia. The patient completed 4th cycle of Kaedem-R-CHP on 04/17 and has port-a-cath in place. She was seen yesterday in oncology with H/H 8.5/26.5% (was 11.0/33.6% on 04/17), PLT 40,000 (down from 220,000 04/17). PET scan on 01/16/2023 showed significant mural thickening involving the fundus of the body of the stomach consistent with current diagnosis diffuse large B-cell lymphoma with gastric involvement. There is also noted to be a perigastric solid l ymphadenopathy as well as circumferential mural thickening of the cecum adjacent proximal ascending colon among other findings. She did undergo endoscopy due to anemia on 03/13 which showed a malignant gastric ulcer that was not bleeding and was being considered for outpatient colonoscopy. However in light of acute on chronic anemia, will be admitted for further management of acute GI bleed with plan for colonoscopy and platelet transfusion. Patient denies any lightheadedness, melena, hematochezia, abdominal pain, nausea, vomiting, shortness of breath, chest pain. Denies any urinary symptoms, fevers, chills, dysphagia. She does report generalized weakness. Review of Systems Review of Systems: General: No fevers, malaise, unintentional weight loss. +generalized weakness HEENT: No blurred vision, diplopia. No sore throat, nasal congestion, rhinorrhea, sinus pain, ear pain Cardiovascular: No chest pain, palpitations, or leg edema Respiratory: No shortness of breath, wheezing, cough GI: No abdominal pain, nausea, vomiting, diarrhea, constipation, melena, hematochezia : No dysuria, hematuria, increased urinary frequency, decreased urinary output MSK: No myalgia, back pain Neuro: No headaches, focal weakness, paresthesias Skin: No rashes or lesions [facility] Medical History (Updated 04/24/23 @ 16:11 by ROSIBEL Trejo) Orthostasis Moderate protein malnutrition Lymphoma malignant, large cell Anemia Abnormal CT of the abdomen Stomach cancer Kidney disease Asthma Surgical History Hx of colonoscopy Tubal ligation status History of bladder surgery History of cholecystectomy Social History Household Members: Children Housing: Apartment Do you presently have visiting nurse or other home services: Yes ([employer]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) Alcohol intake: never Patient Tobacco Use Status: Never used Tobacco e-Cigarette/Vaping Use: Never Used Second Hand Smoke Exposure: No Advance Directives: Yes Advance Directives on File: Yes Advance Directives Date on File: 02/12/20 service: No 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al status: disabled 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: r [employer] Allergies Allergy/AdvReac Type Severity Reaction Status Date / Time codeine [CODEINE] Allergy Intermediate RASH Verified 04/19/23 15:21 ibuprofen [From MOTRIN] Allergy Intermediate RASH Verified 04/19/23 15:21 Penicillins [PENICILLINS] Allergy Intermediate RASH Verified 04/19/23 15:21 pineapple Allergy Unknown Rash Verified 04/19/23 15:21 black pepper Allergy Rash Verified 04/19/23 15:21 motrin Allergy Unknown rash, Uncoded 04/19/23 15:21 swelling PCN Allergy Unknown rash, Uncoded 04/19/23 15:21 swelling Active Medications: Current Medications Acetaminophen (Acetaminophen 325 Mg Tablet) 650 mg PO Q6H PRN PRN Reason: Pain, Mild (Pain Scale 1-3) Sodium Chloride (Ns) 100 mls @ 100 mls/hr IV ONCE ONE Stop: 04/24/23 14:56 Ondansetron HCl (Ondansetron Hcl 4 Mg/2 Ml Vial) 4 mg IVPUSH Q8H PRN PRN Reason: Nausea and Vomiting Polyethylene Glycol/Electrolytes (Peg 3350/Na Sulf,Bicarb,Cl/Kcl 4,000 Ml Soln.Recon) 240 ml PO Q10M [facility] Stop: 04/24/23 20:41 Senna (Sennosides 8.6 Mg Tablet) 17.2 mg PO BEDTIME PRN PRN Reason: Constipation Sodium Chloride (0.9 % Sodium Chloride Flush 3 Ml Syringe) 3 ml IVFLUSH QSHIFT [facility] Home Medications Medication Instructions Recorded Confirmed Last Taken Type albuterol sulfate 90 mcg/actuation 2 puff inhalation Q4H PRN 10/10/21 04/19/23 Unknown History aerosol inhaler Shortness Of Breath Or Wheezing atorvastatin 80 mg tablet 80 mg PO QPM 10/10/21 04/19/23 Unknown History cholecalciferol (vitamin D3) 125 125 mcg PO DAILY 10/10/21 04/19/23 Unknown History mcg (5,000 unit) tablet loratadine 10 mg tablet 10 mg PO DAILY PRN Allergic 10/10/21 04/19/23 Unknown History Symptoms fluticasone propionate 50 1 spray intranasal BID PRN Allergy 11/25/22 04/19/23 Unknown History mcg/actuation nasal Symptoms spray,suspension dexamethasone 4 mg tablet 4 mg PO BID PRN day 2 or 3 of chemo 01/29/23 04/19/23 Unknown History prednisone 20 mg tablet 60 mg PO DAILY PRN day 1-5 of chemo 01/29/23 04/19/23 Unknown History sulfamethoxazole 800 1 tab PO DAILY 02/23/23 04/19/23 Unknown History mg-trimethoprim 160 mg tablet cyanocobalamin (vitamin B-12) 1,000 mcg PO DAILY 03/09/23 04/19/23 Unknown History 1,000 mcg tablet midodrine 5 mg tablet 5 mg PO TID 03/09/23 04/19/23 Unknown History oxycodone 5 mg tablet 5 mg PO QID PRN Pain (Scale Score 03/09/23 04/19/23 Unknown History 4-6) umeclidinium 62.5 mcg/actuation 1 inh inhalation DAILY 03/09/23 04/19/23 Unknown History blister powder for inhalation (Incruse Ellipta) Physical Exam Vital Signs and Narrative: Vital Signs: Vital Signs Temp Pulse Resp BP Pulse Ox O2 Del Method 97.0 F 71 24 H 98/68 100 Room Air 04/24/23 15:33 04/24/23 15:33 04/24/23 15:33 04/24/23 15:33 04/24/23 15:33 04/24/23 15:33 Constitutional - Awake and Alert, No apparent distress Eyes - PERRLA, EOMI Cardiovascular - S1S2, RRR, 1+ ble edema Respiratory - Normal lung expansion, Normal respiratory effort, No respiratory distress, CTA bilaterally Gastrointestinal - NT / ND; +BS; No rebound or guarding Extremities - no calf tenderness bilaterally, ble swelling Skin - Warm/Dry. No petechiae, but ecchymotic lesions noted on the hands bilaterally Neurological - Alert & oriented x3 Psychological - Appropriate affect Assessment and Plan (1) Acute blood loss anemia: Status: Acute (2) Pancytopenia: Status: Acute (3) GI bleed: Status: Acute Plan 77-year-old female with 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 Becerril, chronic anemia, orthostasis, hyperlipidemia, and asthma admitted directly from Oncology due to GI bleed with thrombocytopenia. #Acute blood loss anemia- due to acute GI bleed -H/H 8.5/26.5 04/23 (was 11.0/33.6% on 04/17) -Received 1 unit PRBC yesterday -Per GI, colonoscopy tomorrow -Golytely at 6pm -clear liquid diet, NPO after midnight -gastroenterology consult -follow CBC -monitor on telemetry #Pancytopenia -2/2 malignancy -transfuse 1 unit platelets with colonoscopy -follow cbc #BLE edema/swelling -venous duplex ble r/o dvt -continue furosemide #diffuse large B-cell lymphoma of stomach -last cycle (4) of Kadeem R-CHP 04/17 -oncology consult # mild intermittent asthma -no acute exacerbation -continue maintenance inhalers, albuterol p.r.n. # GERD -continue PPI # orthostatic hypotension -continue midodrine DVT prophylaxis- SCPs Full code Pt requires inpt stay at least 2 midnights due to acute GI bleed with pancytopenia requriing platelet transfusion, urgent inpt colonoscopy, close monitoring of blood counts, and expert consultation. Quality Stroke Does the patient have a stroke diagnosis?: No VTE Prior VTE?: No VTE Risk Level:: Medical - moderate - high VTE Device Contraindication: N/A - Device Ordered VTE Drug Contraindication: Treatment Not Indicated
[2023-04-24 15:33] VITALS: BP 98/68; PULSE 71; RESP 24; TEMP 36.1; O2SAT 100
[2023-04-24 16:08] VITALS: BMI 19.8
--- NOTE | 2023-04-24 17:17 | PHA.MEDREC ---
Pharmacy Consult ? Medication Reconciliation Pharmacy has completed the medication reconciliation. Spoke to patient and confirmed medication list.
[2023-04-24 19:09] VITALS: BP 118/69; PULSE 76; RESP 18; TEMP 36.4; O2SAT 99
[2023-04-24 19:38] LABS: Magnesium 1.6 mg/dL (1.6-2.6)
[2023-04-24] MEDS: Calcium + Vitamin D 250 MG TABLET 500 MG PO (19:41)
[2023-04-24] MEDS: Atorvastatin Calcium 80 MG TABLET PO (19:41)
[2023-04-24] MEDS: PEG 3350/Na Sulf,Bicarb,Cl/KCL 4,000 ML SOLN.RECON 4000 ML PO (19:41)
[2023-04-24] MEDS: Sucralfate Oral Suspension 1 GM/10 ML ORAL.SUSP PO (19:41)
--- NOTE | 2023-04-24 22:46 | PC.NURSE ---
Pt scheduled for colonoscopy tomorrow 04/28/23, to start bowel prep this evening. Started around 1930, patient took in approx 400mls then refused to drink more than a few sips at a time. Continued to encouraged every 10 minutes, however patient continues to refuse. MD Staton notified and aware. Will continue to encourage patient to drink more. Will remain NPO at midnight.
[2023-04-24] MEDS: Heparin Sodium,Porcine Flush 50 UNITS/5 ML SYRINGE IVFLUSH (23:16)
[2023-04-24 23:34] VITALS: BP 101/55; PULSE 83; RESP 18; TEMP 37.2; O2SAT 100
[2023-04-25] VITALS (11 sets, daily range): BP systolic 91–138; BP diastolic 54–73; PULSE 69–87; RESP 16–20; TEMP 36.6–38.1; O2SAT 97–99; BMI 19.8
--- NOTE | 2023-04-25 06:58 | P.CNGI_ITS ---
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 patient was seen in oncology office and noted to be anemic with H/H 8.5/26.5% (was 11.0/33.6% on 04/17). Patient denies any lightheadedness, melena, hematochezia, nose bleeds, bruising, gum bleeding, abdominal pain, nausea, vomiting, shortness of breath, chest pain. Denies any urinary symptoms, fevers, chills, dysphagia. She does report generalized weakness Additionally she also had PET scan 01/16/23 confirming mural thickening involving the fundus of the body of the stomach consistent with current diagnosis diffuse large B-cell lymphoma with gastric involvement. There is also noted to be a perigastric solid lymphadenopathy as well as circumferential mural thickening of the cecum adjacent proximal ascending colon. Last EGD was 03/13 which showed a malignant gastric ulcer that was not bleeding. . Review of Systems 2 Review of Systems: Constitutional : + Weight loss, No Fever, No Chills ENT/Mouth : No sore throat, No Rhinorrhea Eyes: No Swelling, No Redness Cardiovascular : No Chest Pain, No SOB, No Edema Respiratory : No Cough, No Sputum, No Wheezing Gastrointestinal : see HPI Genitourinary : NO Dysuria, No Urinary Frequency, No Hematuria, No Urgency Musculoskeletal : No joint pain, No Myalgias, No Joint Swelling Skin : No Skin Lesions, No rash Neuro :+ Weakness, No Numbness, No Dizziness, No Headache Psych : No Anxiety/Panic, No Depression Heme/Lymph: No Bruising, No Lymphadenopathy Endocrine : No Polyuria, No Polydipsia All other systems reviewed and are negative. [facility] Past Medical History Medical History (Updated 04/25/23 @ 16:40 by ROSIBEL Trejo) Orthostasis Moderate protein malnutrition Lymphoma malignant, large cell Anemia Abnormal CT of the abdomen Stomach cancer Kidney disease Asthma Surgical History Surgical History Hx of colonoscopy Tubal ligation status History of bladder surgery History of cholecystectomy Social History Social History Household Members: Family Housing: Apartment Do you presently have visiting nurse or other home services: Yes Alcohol intake: never Patient Tobacco Use Status: Former Tobacco user Tobacco use type: Cigarette Smoked in Last 30 Days: No e-Cigarette/Vaping Use: Never Used Patient Interested in Nicotine Replacement: No Patient Given Instructions on How to Stop Smoking: No Second Hand Smoke Exposure: No Use of substances other than those prescribed or required for medical reasons: No Currently Displaying Signs/Symptoms of Drug Intoxication Withdrawal: No Have you been hit, kicked, punched, or otherwise hurt by someone within the past year? If so, by whom?: No Advance Directives: Yes Advance Directives on File: Yes Advance Directives Date on File: 02/12/20 Do you have thoughts of harming others: None Do you have a plan to hurt others: No Plan Recently lost weight without trying: Yes How much weight loss: 34pounds or more Eating poorly because of decreased appetite: Yes Nutrition screen score: 7 Nutrition Risks: Poor intake 0-25% >4 days Patient : No : No Poor oral hygiene: No service: No 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al status: disabled 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: r handed Meds Allergies Allergy/AdvReac Type Severity Reaction Status Date / Time codeine [CODEINE] Allergy Intermediate RASH Verified 04/19/23 15:21 ibuprofen [From MOTRIN] Allergy Intermediate RASH Verified 04/19/23 15:21 Penicillins [PENICILLINS] Allergy Intermediate RASH Verified 04/19/23 15:21 pineapple Allergy Unknown Rash Verified 04/19/23 15:21 black pepper Allergy Rash Verified 04/19/23 15:21 motrin Allergy Unknown rash, Uncoded 04/19/23 15:21 swelling PCN Allergy Unknown rash, Uncoded 04/19/23 15:21 swelling Active Medications: Current Medications Acetaminophen (Acetaminophen 325 Mg Tablet) 650 mg PO Q6H PRN PRN Reason: Pain, Mild (Pain Scale 1-3) Albuterol Sulfate (Albuterol Sulfate 90 Mcg 8 Gm Inhaler) 2 puff INHALE Q4H PRN PRN Reason: Shortness Of Breath Or Wheezing Atorvastatin Calcium (Atorvastatin Calcium 80 Mg Tablet) 80 mg PO BEDTIME YOMAIRA Last Admin: 04/24/23 19:41 Dose: 80 mg Calcium Carbonate/Cholecalciferol (Calcium + Vitamin D 250 Mg Tablet) 500 mg PO BID [facility] Last Admin: 04/24/23 19:41 Dose: 500 mg Cyanocobalamin (Cyanocobalamin (Vitamin B-12) 1,000 Mcg Tablet) 1,000 mcg PO DAILY [facility] Fluticasone Propionate (Fluticasone Propionate Nasal 16 Gm [place]) 1 spray NOSTRIL-B BID PRN PRN Reason: Allergy Symptoms Heparin Sodium (Porcine) (Heparin Sodium,Porcine Flush 50 Units/5 Ml Syringe) 50 units IVFLUSH QSHIFT [facility] Last Admin: 04/24/23 23:16 Dose: 50 units Loratadine (Loratadine 10 Mg Tablet) 10 mg PO DAILY PRN PRN Reason: Allergic Symptoms Midodrine (Midodrine Hcl 5 Mg Tablet) 5 mg PO TIDWM [facility] Omeprazole (Omeprazole 20 Mg Capsule.Dr) 20 mg PO BID@0630,1630 [facility] Last Admin: 04/25/23 05:31 Dose: Not Given Ondansetron HCl (Ondansetron Hcl 4 Mg/2 Ml Vial) 4 mg IVPUSH Q8H PRN PRN Reason: Nausea and Vomiting Senna (Sennosides 8.6 Mg Tablet) 17.2 mg PO BEDTIME PRN PRN Reason: Constipation Sucralfate (Sucralfate Oral Suspension 1 Gm/10 Ml Oral.Susp) 1 gm PO TID [facility] Last Admin: 04/24/23 19:41 Dose: 1 gm Tiotropium [place] (Tiotropium [place] 2.5 Mcg 1 Puff/2.5 Mcg Mist.Inhal) 2 puff [facility]ALE [facility] Home Medications Medication Instructions Recorded Confirmed Last Taken Type albuterol sulfate 90 mcg/actuation 2 puff inhalation Q4H PRN 10/10/21 04/24/23 Unknown History aerosol inhaler Shortness Of Breath Or Wheezing atorvastatin 80 mg tablet 80 mg PO QPM 10/10/21 04/24/23 04/23/23 History loratadine 10 mg tablet 10 mg PO DAILY PRN Allergic 10/10/21 04/24/23 Unknown History Symptoms fluticasone propionate 50 1 spray intranasal BID PRN Allergy 11/25/22 04/24/23 04/23/23 History mcg/actuation nasal Symptoms spray,suspension cyanocobalamin (vitamin B-12) 1,000 mcg PO DAILY 03/09/23 04/24/23 04/23/23 History 1,000 mcg tablet midodrine 5 mg tablet 5 mg PO TID 03/09/23 04/24/23 04/23/23 History umeclidinium 62.5 mcg/actuation 1 inh inhalation DAILY 03/09/23 04/24/23 04/23/23 History blister powder for inhalation (Incruse Ellipta) Physical Exam 2 Vital Signs: Vital Signs: Last Vital Signs Temp 98.4 F 04/25/23 03:46 Pulse 76 04/25/23 03:46 Resp 20 04/25/23 03:46 BP 115/66 04/25/23 03:46 Pulse Ox 99 04/25/23 03:46 O2 Del Method Room Air 04/25/23 03:46 BMI result Body Mass Index 19.8 EXAM: GENERAL: The patient is frail VITAL SIGNS:see workflow HEENT: Nonicteric sclerae, PERRLA, EOMI. Oropharynx clear. Moist mucous membranes. Conjunctivae appear pale. No thyroid mass. CHEST: Chest wall is nontender. HEART: Regular rate and rhythm without murmurs. LUNGS: Clear to auscultation bilaterally. ABDOMEN: Soft, positive bowel sounds, nontender, no organomegaly.no flank tenderness SKIN: No rash, no excessive bruising, petechiae, or purpura. NEUROLOGIC: Cranial nerves II-XII intact without motor/sensory deficit. Psych: Appearance: grossly normal Results Labs 04/25/23 08:49 04/25/23 08:49 Assessment and Plan (1) Colon wall thickening: Status: Acute (2) Pancytopenia: Status: Acute (3) Gastric lymphoma: Status: Acute Plan !/ Acute on chronic anemia without overt GI bleeding, had recent chemo and now has pancytopenia maybe chemo related, ddx: bone marrow failure, DIC but PET scanning also now with possible colonic mass. 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 Procedures Date of Service Date of Service: 04/25/23
[2023-04-25] MEDS: Tiotropium Bromide 2.5 mcg 1 PUFF/2.5 MCG MIST.INHAL 2 PUFF INHALE (07:45)
[2023-04-25] MEDS: Calcium + Vitamin D 250 MG TABLET 500 MG PO ×2 (08:25→20:22)
[2023-04-25] MEDS: Sucralfate Oral Suspension 1 GM/10 ML ORAL.SUSP PO ×3 (08:25→20:22)
[2023-04-25] MEDS: Midodrine HCl 5 MG TABLET PO (08:25)
[2023-04-25] MEDS: Cyanocobalamin (Vitamin B-12) 1,000 MCG TABLET 1000 MCG PO (08:25)
[2023-04-25] MEDS: Heparin Sodium,Porcine Flush 50 UNITS/5 ML SYRINGE IVFLUSH ×2 (08:25→14:59)
[2023-04-25 09:16] LABS: Eosinophils Percent Auto 4.7 % (0-4); Hematocrit 29.4 % (37.0-47.0); Hemoglobin 9.8 g/dl (12.0-16.0); Imm Gran Abs Auto 0.01 X10*3/uL (0.00-0.03); Imm Gran Pct Auto 1.6 % (0.0-0.4); Lymphocytes Absolute Auto 0.4 X10*3/uL (1.2-4.9); Lymphocytes Percent Auto 65.6 % (20-40); MANUAL DIFF FLAG SCAN; Mean Corpuscular HGB Conc 33.3 g/dl (31.0-35.0); Mean Corpuscular Hemoglobin 29.3 pg (27.0-33.0); Mean Corpuscular Volume 87.8 fL (80.0-98.0); Mean Platelet Volume 13.1 fL (9.4-12.3); Monocytes Absolute Auto 0.1 X10*3/uL (0.1-1.2); Monocytes Percent Auto 12.5 % (2-11); Neutrophils Absolute Auto 0.1 x10*3/uL (2.0-8.3); Neutrophils Percent Auto 15.6 % (45-73); Red Blood Count 3.35 X10*6/uL (4.20-5.50); Red Cell Distribution Width 17.2 % (11.0-16.0); SCAN SMEAR FLAG 1
[2023-04-25 09:27] LABS: Anion Gap 7 (12-20); Blood Urea Nitrogen 13 mg/dL (9-16); Calcium 7.9 mg/dL (8.4-10.2); Carbon Dioxide 30 mmol/L (22-29); Chloride 113 mmol/L (96-108); Creatinine Clr Calc Pharmacy 68.7; Estimated Glomerular Filt Rate > 60; Glucose Random 86 mg/dL (60-115); Potassium 3.1 mmol/L (3.3-5.1); Sodium 147 mmol/L (135-145)
--- NOTE | 2023-04-25 09:35 | MHC.CM.PN ---
IMM 04/25. Pt SSO, lives at home with her grandson, her son lives next door. Pt has a [employer]BLER Mon-Sat, [employer], and uses a cane and rollater walker. Pts son will transport her home. HCP copy requested, also offered to create new one with pt, she asked us to contact her PCP office for one. PCP: Dr. Mis Gutierrez
[2023-04-25 10:22] LABS: White Blood Count 0.6 X10*3/uL (4.8-10.8)
[2023-04-25 10:23] LABS: Platelet Count 16 X10*3/uL (160-400)
[2023-04-25 10:24] LABS: SLIDE REVIEW VERIFIED
--- NOTE | 2023-04-25 11:33 | MHC.CLN ---
PT IS SEVERELY MALNOURISHED PT WITH MODERATELY DEPLETED SUBCUTANEOUS FAT AND MUSCLE MASS WITH 31% SIGNIFICANT WT LOSS X 6 MONTHS WITH INCREASED NUTRITION RISK R/T PRESSURE INJURY PT FAMILIAR TO FACILITY AND PREVIOUS DX MALNOURISHED (SEE NUTRITION ASSESSMENTS DATED 11/27/22 & 04/13/23) PT IS CURRENTLY NPO WHEN DIET TO ADVANCE; PLEASE INCLUDE NEUTROPENIC PRECAUTIONS PER MD IN ADDITION; WILL ADD HIGH KCAL, HIGH PROTEIN SUPPLEMENT MONITOR FOR DIET ADVANCEMENT SEE ALSO FULL CLINICAL NUTRITION ASSESSMENT
[2023-04-25] MEDS: Dextrose 5 % 500 ML 100 ML IVCONT ×3 (11:39→21:58)
--- NOTE | 2023-04-25 15:17 | HO.WOUND ---
Wound Consult: Initial 77yr old female admitted to [facility] – [place], [place] on? 04/24/23 13:52- See progress notes and H&P for detailed history. Wound consult placed for Coccyx wound POA. Pt has baseline urinary incontinence Purewick in place - noted to be poor placement - Cleansed and new Purewick placed with use of Peripad and mesh underwear to aid in maintaining placement. Coccyx Etiology: stage 2 Pressure Injury POA (Present on Admission) Measurements: 0.4cm x 0.4cm x 0.1cm Wound Bed: red moist clean wound bed Drainage / Odor: scant serosang Edges: ? well defined and attached Cheryl wound: ? Slow to bee erythema noted, MASD noted with hyperpigmented tissue No Induration, Fluctuance or Warmth noted Pain: reports pain at coccyx wound site Goals of Treatment: ? Off Load pressure - Triad to aid in autolytic moist wound healing, and foam to protect from moisture and friction Recommendations: 1. Turn and Reposition every 2 hours and as needed for patient comfort. 2. Off Load all bony prominences with use of pillows and heel boots if needed.? Apply Preventative foams where needed. ? 3. Monitor for incontinence and moisture control, use barrier creams when needed for prevention and treatment. 4. Provide adequate and supplemental nutrition. 5. Order low air loss mattress. 6. Coccyx - Off Load Pressure - Cleanse with PH balance spray or wipes, pat dry. ?Apply thin layer of Triad to wound bed - only pat and dab no scrub and rub when soiling occurs. Reapply thin layer PRN after each episode of incontinence. May cover with foam dressing to protect from friction and moisture. Re-consult wound care Nurse for wound deterioration or wound changes.
--- NOTE | 2023-04-25 15:29 | P.CNHO_ITS ---
Subjective - Subjective Chief complaint: None at this time Patient: known to practice within the last 3 years Consult date: 04/25/23 Requesting Physician: Jany Tom Primary Care Provider: Unknown Physician HPI - Consult Narrative Reason for consult: Gastric lymphoma/pancytopenia Narrative: Delmy Ann is a 77 year old female with history of diffuse large B-cell lymphoma of stomach is receiving chemotherapy admitted for anemia secondary to GI bleed. She is on chemotherapy with Kadeem-R CHP, her last cycle was on 04/17/2023. Patient was referred the hospital from Hematology because of worsening anemia as well as symptoms of weakness. She had an endoscopy in March which showed malignant gastric ulcer that was not bleeding. Because of recurrent occult GI bleeding, colonoscopy was being considered. She was admitted to have colonoscopy as inpatient. She received blood transfusion. However she was noted to have significant thrombocytopenia as well as neutropenia. Oncology consultation has been called regarding this. [facility] Medical History: Medical History (Last Updated 04/24/23 @ 16:11 by ROSIBEL Trejo) Abnormal CT of the abdomen Anemia Asthma Kidney disease Lymphoma malignant, large cell Moderate protein malnutrition Orthostasis Stomach cancer Surgical History: Surgical History (Last Reviewed 04/12/23 @ 20:05 by ROSIBEL Guardado) History of bladder surgery History of cholecystectomy Hx of colonoscopy Tubal ligation status Social History: Social History (Last Reviewed 04/19/23 @ 15:21 by Kenisha Hernández) Living Situation History: Household Members: Family Housing: Apartment Do you presently have visiting nurse or other home services: Yes Alcohol History Details: 1. How often do you have a drink containing alcohol?: a. Never AUDIT-C Alcohol total score: 0 Currently Displaying Signs/Symptoms of Alcohol Withdrawal: No Tobacco History: Patient Tobacco Use Status: Former Tobacco user Tobacco use type: Cigarette Smoked in Last 30 Days: No e-Cigarette/Vaping Use: Never Used Patient Interested in Nicotine Replacement: No Patient Given Instructions on How to Stop Smoking: No Second Hand Smoke Exposure: No Substance Use History: Use of substances other than those prescribed or required for medical reasons : No Currently Displaying Signs/Symptoms of Drug Intoxication Withdrawal: No Domestic Abuse History: Have you been hit, kicked, punched, or otherwise hurt by someone within the past year? If so, by whom?: No Advance Directives: Advance Directives: Yes Advance Directives on File: Yes Advance Directives Date on File: 02/12/20 Homicidal Assessment: Do you have thoughts of harming others: None Do you have a plan to hurt others: No Plan Nutrition Assessment: Recently lost weight without trying: Yes How much weight loss: 34pounds or more Eating poorly because of decreased appetite: Yes Nutrition screen score: 7 Nutrition Risks: Poor intake 0-25% >4 days Patient : No : No Poor oral hygiene: No Occupation Assessmet: service: No 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al status: disabled 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: r handed Home Medications and Allergies Current Medications: Current Medications Acetaminophen (Acetaminophen 325 Mg Tablet) 650 mg PO Q6H PRN PRN Reason: Pain, Mild (Pain Scale 1-3) Albuterol Sulfate (Albuterol Sulfate 90 Mcg 8 Gm Inhaler) 2 puff INHALE Q4H PRN PRN Reason: Shortness Of Breath Or Wheezing Atorvastatin Calcium (Atorvastatin Calcium 80 Mg Tablet) 80 mg PO BEDTIME [facility] Last Admin: 04/24/23 19:41 Dose: 80 mg Calcium Carbonate/Cholecalciferol (Calcium + Vitamin D 250 Mg Tablet) 500 mg PO BID [facility] Last Admin: 04/25/23 08:25 Dose: 500 mg Cyanocobalamin (Cyanocobalamin (Vitamin B-12) 1,000 Mcg Tablet) 1,000 mcg PO DAILY [facility] Last Admin: 04/25/23 08:25 Dose: 1,000 mcg Fluticasone Propionate (Fluticasone Propionate Nasal 16 Gm [place]) 1 spray NOSTRIL-B BID PRN PRN Reason: Allergy Symptoms Heparin Sodium (Porcine) (Heparin Sodium,Porcine Flush 50 Units/5 Ml Syringe) 50 units IVFLUSH QSHIFT [facility] Last Admin: 04/25/23 14:59 Dose: 50 units Dextrose (D5w) 500 mls @ 100 mls/hr IVCONT .Q5H [facility] Last Admin: 04/25/23 11:39 Dose: 100 mls/hr Loratadine (Loratadine 10 Mg Tablet) 10 mg PO DAILY PRN PRN Reason: Allergic Symptoms Midodrine (Midodrine Hcl 5 Mg Tablet) 5 mg PO TIDWM [facility] Last Admin: 04/25/23 11:34 Dose: Not Given Omeprazole (Omeprazole 20 Mg Capsule.) 20 mg PO BID@0630,1630 [facility] Last Admin: 04/25/23 05:31 Dose: Not Given Ondansetron HCl (Ondansetron Hcl 4 Mg/2 Ml Vial) 4 mg IVPUSH Q8H PRN PRN Reason: Nausea and Vomiting Senna (Sennosides 8.6 Mg Tablet) 17.2 mg PO BEDTIME PRN PRN Reason: Constipation Sucralfate (Sucralfate Oral Suspension 1 Gm/10 Ml Oral.Susp) 1 gm PO TID [facility] Last Admin: 04/25/23 14:59 Dose: 1 gm Tiotropium [place] (Tiotropium [place] 2.5 Mcg 1 Puff/2.5 Mcg Mist.Inhal) 2 puff INHALE RDAILY [facility] Last Admin: 04/25/23 07:45 Dose: 2 puff Home Medications Medication Instructions Recorded Confirmed Type albuterol sulfate 90 mcg/actuation 2 puff inhalation Q4H PRN 10/10/21 04/24/23 History aerosol inhaler Shortness Of Breath Or Wheezing atorvastatin 80 mg tablet 80 mg PO QPM 10/10/21 04/24/23 History loratadine 10 mg tablet 10 mg PO DAILY PRN Allergic 10/10/21 04/24/23 History Symptoms fluticasone propionate 50 1 spray intranasal BID PRN Allergy 11/25/22 04/24/23 History mcg/actuation nasal Symptoms spray,suspension cyanocobalamin (vitamin B-12) 1,000 mcg PO DAILY 03/09/23 04/24/23 History 1,000 mcg tablet midodrine 5 mg tablet 5 mg PO TID 03/09/23 04/24/23 History umeclidinium 62.5 mcg/actuation 1 inh inhalation DAILY 03/09/23 04/24/23 History blister powder for inhalation (Incruse Ellipta) Allergies Allergy/AdvReac Type Severity Reaction Status Date / Time codeine [CODEINE] Allergy Intermediate RASH Verified 04/19/23 15:21 ibuprofen [From MOTRIN] Allergy Intermediate RASH Verified 04/19/23 15:21 Penicillins [PENICILLINS] Allergy Intermediate RASH Verified 04/19/23 15:21 pineapple Allergy Unknown Rash Verified 04/19/23 15:21 black pepper Allergy Rash Verified 04/19/23 15:21 motrin Allergy Unknown rash, Uncoded 04/19/23 15:21 swelling PCN Allergy Unknown rash, Uncoded 04/19/23 15:21 swelling Physical Exam Vital signs: Vital Signs Temp 98.7 F 04/25/23 14:38 Pulse 75 04/25/23 14:38 Resp 16 04/25/23 14:38 BP 102/60 04/25/23 14:38 Pulse Ox 99 04/25/23 11:30 O2 Del Method Room Air 04/25/23 11:30 Intake & Output 04/24/23 04/25/23 04/25/23 18:59 06:59 18:59 Intake Total 400 / 400 654 / 654 Output Total 1200 / 1200 500 / 500 Balance -800 / -800 154 / 154 Urine Output (Average ml/kg/hr) 2.18 0.91 Intake: Intake, Oral Amount 400 / 400 240 / 240 Intake (Blood Product) Amount 314 / 314 Plt Aph Pas Pathreduced(E8341) 314 / 314 Unit [id number] Intake, IV Amount 100 / 100 0.9 % Sodium Chloride 100 ml @ 100 / 100 100 mls/hr IV ONCE ONE Rx#: [id number] Output: Output, Urine Amount 800 / 800 Output, Urine Amount (Catheter) 400 / 400 500 / 500 purewick 400 / 400 500 / 500 Other: NPO Yes Lunch % Eaten 75% Number of Bowel Movements 0 Urine periwick Urine Color Yellow Yellow Last Bowel Movement 04/24/23 04/24/23 04/24/23 Weight 45.9 kg 45.9 kg Weight in Grams [id number] Weight 45.9 kg - Constitutional Present: no acute distress - Routine HEENT Exam Head: Present: normal inspection Eye: Present: conjunctivae pale - Routine Neck Exam Present: supple. Absent: lymphadenopathy - Routine Respiratory Exam Absent: accessory muscle use - Routine Cardiovascular Exam Cardiovascular: Present: S1, S2 - Routine Abdominal Exam Absent: mass - Routine Extremities Exam Present: pulses intact. Absent: calf tenderness Hem/Onc Consult Result - Labs CBC & Chem 7: 04/25/23 08:49 04/25/23 08:49 Labs: Short CBC 04/25/23 Range/Units 08:49 WBC 0.6 L* (4.8-10.8) X10*3/uL Hgb 9.8 L (12.0-16.0) g/dl Hct 29.4 L (37.0-47.0) % Plt Count 16 L* D (160-400) X10*3/uL BMP 04/25/23 08:49 Sodium 147 H Potassium 3.1 L Chloride 113 H Carbon Dioxide 30 H BUN 13 Creatinine 0.50 Calcium 7.9 L Assessment and Plan Patient Active problem list reviewed?: Yes (1) Pancytopenia Status: Acute Assessment and plan: 1. This is a 77-year-old woman with gastric lymphoma who is receiving chemotherapy with R kadeem/ CHP regimen. Status post cycle 5 on 04/17/2023. Because of recurrent GI bleeding and PET scan findings of abnormal mural thickening of the cecum and proximal ascending colon, she was scheduled to undergo colonoscopy tomorrow. Unfortunately she has developed significant pancytopenia related to recent chemotherapy. She is neutropenic as well as thrombocytopenic. She is receiving platelet transfusion today. However, because of neutropenia, it would not be safe to proceed with colonoscopy tomorrow unless her counts improve, ANC at least around 1000. She received Neulasta on 04/19/2023. Follow neutropenic precautions. I thank you for this consultation. - Time Spent With Patient Time Spent with Patient (in minutes): 20
--- NOTE | 2023-04-25 16:19 | HO.PM.IMPN ---
Subjective Subjective Date of Service: 04/25/23 Interval History: Seen in follow up for gastic lymphoma, pancytopenia Interval history: No complaints, resting comfortably in bed, tolerating diet. Neutropenic this morning with WBC 0.6, worsening thombocytopenia 14K. Afebrile. Review of Systems Review of Systems: Yes all other systems are reviewed and are negative Physical Exam Vital Signs: Vital Signs: Last Vital Signs Temp 97.8 F 04/25/23 16:00 Pulse 78 04/25/23 16:00 Resp 18 04/25/23 16:00 BP 128/72 04/25/23 16:00 Pulse Ox 99 04/25/23 16:00 O2 Del Method Room Air 04/25/23 16:00 BMI result Body Mass Index 19.8 Constitutional - Awake and Alert, No apparent distress Eyes - PERRLA, EOMI Cardiovascular - S1S2, RRR, No edema Respiratory - Normal lung expansion, Normal respiratory effort, No respiratory distress, CTA bilaterally Gastrointestinal - NT / ND; +BS; No rebound or guarding Extremities - no calf tenderness bilaterally, no swelling Skin - Warm/Dry Neurological - Alert & oriented x3 Psychological - Appropriate affect Objective Data Active Medications Acetaminophen (Acetaminophen 325 Mg Tablet) 650 mg PO Q6H PRN PRN Reason: Pain, Mild (Pain Scale 1-3) Albuterol Sulfate (Albuterol Sulfate 90 Mcg 8 Gm Inhaler) 2 puff INHALE Q4H PRN PRN Reason: Shortness Of Breath Or Wheezing Atorvastatin Calcium (Atorvastatin Calcium 80 Mg Tablet) 80 mg PO BEDTIME [facility] Last Admin: 04/24/23 19:41 Dose: 80 mg Documented By: HALINA Calcium Carbonate/Cholecalciferol (Calcium + Vitamin D 250 Mg Tablet) 500 mg PO BID [facility] Last Admin: 04/25/23 08:25 Dose: 500 mg Documented By: MARIANNA Cyanocobalamin (Cyanocobalamin (Vitamin B-12) 1,000 Mcg Tablet) 1,000 mcg PO DAILY [facility] Last Admin: 04/25/23 08:25 Dose: 1,000 mcg Documented By: MARIANNA Fluticasone Propionate (Fluticasone Propionate Nasal 16 Gm [place]) 1 spray NOSTRIL-B BID PRN PRN Reason: Allergy Symptoms Heparin Sodium (Porcine) (Heparin Sodium,Porcine Flush 50 Units/5 Ml Syringe) 50 units IVFLUSH QSHIFT [facility] Last Admin: 04/25/23 14:59 Dose: 50 units Documented By: MARIANNA Dextrose (D5w) 500 mls @ 100 mls/hr IVCONT .Q5H [facility] Last Admin: 04/25/23 11:39 Dose: 100 mls/hr Documented By: MARIANNA Loratadine (Loratadine 10 Mg Tablet) 10 mg PO DAILY PRN PRN Reason: Allergic Symptoms Midodrine (Midodrine Hcl 5 Mg Tablet) 5 mg PO TIDWM [facility] Last Admin: 04/25/23 11:34 Dose: Not Given Documented By: MARIANNA Non-Admin Reason: BP 138/65 Omeprazole (Omeprazole 20 Mg Capsule.Dr) 20 mg PO BID@0630,1630 [facility] Last Admin: 04/25/23 05:31 Dose: Not Given Documented By: HALINA Non-Admin Reason: NPO Ondansetron HCl (Ondansetron Hcl 4 Mg/2 Ml Vial) 4 mg IVPUSH Q8H PRN PRN Reason: Nausea and Vomiting Senna (Sennosides 8.6 Mg Tablet) 17.2 mg PO BEDTIME PRN PRN Reason: Constipation Sucralfate (Sucralfate Oral Suspension 1 Gm/10 Ml Oral.Susp) 1 gm PO TID [facility] Last Admin: 04/25/23 14:59 Dose: 1 gm Documented By: MARIANNA Tiotropium [place] (Tiotropium [place] 2.5 Mcg 1 Puff/2.5 Mcg Mist.Inhal) 2 puff INHALE RDAILY [facility] Last Admin: 04/25/23 07:45 Dose: 2 puff Documented By: HARMAN Labs 04/25/23 08:49 04/25/23 08:49 Labs: Laboratory Results - last 24 hr 04/24/23 04/25/23 19:16 08:49 MCV 87.8 MCH 29.3 MCHC 33.3 RDW 17.2 H Plt Count 16 L* D MPV 13.1 H Immature Gran % (Auto) 1.6 H Neut % (Auto) 15.6 L Lymph % (Auto) 65.6 H [place] % (Auto) 12.5 H Eos % (Auto) 4.7 H Baso % (Auto) 0.0 Lymph # (Auto) 0.4 L [place] # (Auto) 0.1 Eos # (Auto) 0.0 Baso # (Auto) 0.0 Abs Immat Gran (auto) 0.01 Absolute Neuts (auto) 0.1 L Absolute Nucleated RBC 0.000 Nucleated RBC % (auto) 0.0 Smear Tech's Comments VERIFIED Hold Purple Top SEE NOTE Anion Gap 7 L Estim Creat Clear Calc 68.7 Estimated GFR > 60 Random Glucose 86 Calcium 7.9 L Magnesium 1.6 Hold Yellow Top See Note Blood Type O Positive Antibody Screen NEGATIVE Assessment and Plan (1) Pancytopenia: Status: Acute (2) Acute blood loss anemia: Status: Acute (3) GI bleed: Status: Acute (4) Lymphoma malignant, large cell: Status: Acute (5) Severe protein-calorie malnutrition: Status: Acute (6) Neutropenia: Status: Acute (7) Severe thrombocytopenia: Status: Acute Plan 77-year-old female with 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 Becerril, chronic anemia, orthostasis, hyperlipidemia, and asthma admitted directly from Oncology due to GI bleed with thrombocytopenia. #Pancytopenia with Neutropenia/severe thrombocytopenia -WBC 0.6, PLT worsened to 14K today -afebrile, neutropenic precautions -2/2 malignancy -transfuse 1 unit platelets per oncology. Has already received Neulasta. Steroids not indicated at this time -follow cbc -monitor on telemetry #Acute blood loss anemia- due to acute GI bleed- improving -H/H improving. No further bleeding appreciated -Received 1 unit PRBC in oncology 18 -EGG/Colonoscopy on hold due to pancytopenia/severe thombocytopenia -regular, soft diet -GI input appreciated. Can complete egd/colonoscopy at later date after discharge due to above -follow CBC -monitor on telemetry #BLE edema/swelling -venous duplex ble r/o dvt- negative -continue furosemide #diffuse large B-cell lymphoma of stomach -last cycle (4) of Kadeem R-CHP 04/17 -oncology consult # mild intermittent asthma -no acute exacerbation -continue maintenance inhalers, albuterol p.r.n. # GERD -continue PPI # orthostatic hypotension -continue midodrine #Severe protein malnourishment -add supplements, nutrition following DVT prophylaxis- SCPs Full code Pt requires ongoing inpt stay due to severe pancytopenia requiring neutropenic precautions, platelet transfusion with cardiac monitoring, expert consulation and close monitoring of blood counts. Dispo: Consider discharge tomorrow if WBC trending up and PLT >20k. Outpt egd and colonoscopy Quality Stroke Does the patient have a stroke diagnosis?: No VTE Prior VTE?: No VTE Risk Level:: Medical - moderate - high VTE Device Contraindication: N/A - Device Ordered VTE Drug Contraindication: Treatment Not Indicated
[2023-04-25] MEDS: Omeprazole 20 MG CAPSULE.DR PO (16:37)
--- NOTE | 2023-04-25 20:17 | PM.EVENT ---
Event Note Date of Service: 04/25/23 Event Note: Nurse reported fever of 100.6. Will initiate empiric antibiotics for febrile neutropenia. Obtaining lactic acid, blood culture. Resuscitating with IV crystalloids. Time Spent With Patient Time: Total time managing care of this patient today ____ minutes.
[2023-04-25] MEDS: Atorvastatin Calcium 80 MG TABLET PO (20:22)
[2023-04-25] MEDS: Acetaminophen 325 MG TABLET 650 MG PO (20:22)
[2023-04-25] MEDS: Potassium Chloride Packet 20 MEQ PACKET 40 MEQ PO (20:22)
[2023-04-25] MEDS: Midodrine HCl 10 MG TABLET PO (20:22)
[2023-04-25] MEDS: 0.9 % Sodium Chloride 1,000 ML 999 ML IV (20:42)
[2023-04-25 21:05] LABS: Lactic Acid 1.3 mmol/L (0.5-2.0)
[2023-04-25] MEDS: cefEPime HCl 2 GM in 0.9 % Sodium Chloride 50 ML IV (21:59)
--- NOTE | 2023-04-25 22:37 | PC.NURSE ---
At approx 1930 BP noted to be 92/54, Oral and rectal temps 100.6. MD [place] notified. Pt on neutropenic precautions. Blood Cultures, Lactate levels obtained. 1x Midodrine ordered and given. 1L NS Bolus administered with improvement to BP. IV Cefepime started. Continues with D5W at 100mls/hr. Potassium level noted to be low at 3.1, 40mEqs PO Potassium ordered and administered. Recheck BMP in AM. 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 Purewick in place.
[2023-04-26] VITALS (7 sets, daily range): BP systolic 92–111; BP diastolic 53–68; PULSE 70–80; RESP 15–18; TEMP 36.1–37.5; O2SAT 97–99
[2023-04-26] MEDS: Dextrose 5 % 500 ML 100 ML IVCONT ×2 (02:50→07:42)
[2023-04-26] MEDS: Omeprazole 20 MG CAPSULE.DR PO ×2 (06:17→16:26)
[2023-04-26] MEDS: cefEPime HCl 2 GM in 0.9 % Sodium Chloride 50 ML IV ×3 (06:17→21:25)
[2023-04-26] MEDS: Cyanocobalamin (Vitamin B-12) 1,000 MCG TABLET 1000 MCG PO (07:42)
[2023-04-26] MEDS: Midodrine HCl 5 MG TABLET PO ×3 (07:42→16:26)
[2023-04-26] MEDS: Sucralfate Oral Suspension 1 GM/10 ML ORAL.SUSP PO ×3 (07:42→21:26)
[2023-04-26] MEDS: Calcium + Vitamin D 250 MG TABLET 500 MG PO ×2 (07:42→21:26)
[2023-04-26 08:12] LABS: Hematocrit 29.8 % (37.0-47.0); Hemoglobin 9.6 g/dl (12.0-16.0); Mean Corpuscular HGB Conc 32.2 g/dl (31.0-35.0); Mean Corpuscular Hemoglobin 28.9 pg (27.0-33.0); Mean Corpuscular Volume 89.8 fL (80.0-98.0); Mean Platelet Volume 12.5 fL (9.4-12.3); Red Blood Count 3.32 X10*6/uL (4.20-5.50); Red Cell Distribution Width 17.1 % (11.0-16.0)
[2023-04-26 08:19] LABS: Platelet Count 20 X10*3/uL (160-400); WBC ABN SCTR FOR CBC 1
[2023-04-26 08:20] LABS: White Blood Count 0.9 X10*3/uL (4.8-10.8)
[2023-04-26 08:21] LABS: Anion Gap 9 (12-20); Blood Urea Nitrogen 11 mg/dL (9-16); Calcium 7.5 mg/dL (8.4-10.2); Carbon Dioxide 27 mmol/L (22-29); Chloride 110 mmol/L (96-108); Creatinine Clr Calc Pharmacy 59.2; Estimated Glomerular Filt Rate > 60; Glucose Random 88 mg/dL (60-115); Potassium 3.6 mmol/L (3.3-5.1); Sodium 142 mmol/L (135-145)
[2023-04-26] MEDS: Tiotropium Bromide 2.5 mcg 1 PUFF/2.5 MCG MIST.INHAL 2 PUFF INHALE (08:27)
--- NOTE | 2023-04-26 08:52 | PM.HEMONCPN ---
Medical Summary - Medical Summary Date of Service: 04/26/23 Chief complaint: Fever Primary Care Provider: Unknown Physician Interval History Interval history: She feels okay, has no new complaints. [facility] Medical History: Medical History (Last Updated 04/24/23 @ 16:11 by ROSIBEL Trejo) Abnormal CT of the abdomen Anemia Asthma Kidney disease Lymphoma malignant, large cell Moderate protein malnutrition Orthostasis Stomach cancer Surgical History: Surgical History (Last Reviewed 04/12/23 @ 20:05 by ROSIBEL Guardado) History of bladder surgery History of cholecystectomy Hx of colonoscopy Tubal ligation status Social History: Social History (Last Reviewed 04/19/23 @ 15:21 by Kenisha Hernández) Living Situation History: Household Members: Family Housing: Apartment Do you presently have visiting nurse or other home services: Yes Alcohol History Details: 1. How often do you have a drink containing alcohol?: a. Never AUDIT-C Alcohol total score: 0 Currently Displaying Signs/Symptoms of Alcohol Withdrawal: No Tobacco History: Patient Tobacco Use Status: Former Tobacco user Tobacco use type: Cigarette Smoked in Last 30 Days: No e-Cigarette/Vaping Use: Never Used Patient Interested in Nicotine Replacement: No Patient Given Instructions on How to Stop Smoking: No Second Hand Smoke Exposure: No Substance Use History: Use of substances other than those prescribed or required for medical reasons: No Currently Displaying Signs/Symptoms of Drug Intoxication Withdrawal: No Domestic Abuse History: Have you been hit, kicked, punched, or otherwise hurt by someone within the past year? If so, by whom?: No Advance Directives: Advance Directives: Yes Advance Directives on File: Yes Advance Directives Date on File: 02/12/20 Homicidal Assessment: Do you have thoughts of harming others: None Do you have a plan to hurt others: No Plan Nutrition Assessment: Recently lost weight without trying: Yes How much weight loss: 34pounds or more Eating poorly because of decreased appetite: Yes Nutrition screen score: 7 Nutrition Risks: Poor intake 0-25% >4 days Patient : No : No Poor oral hygiene: No Occupation Assessmet: service: No 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al status: disabled 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: r handed Home Medications and Allergies Current Medications: Current Medications Acetaminophen (Acetaminophen 325 Mg Tablet) 650 mg PO Q6H PRN PRN Reason: Pain, Mild (Pain Scale 1-3) Last Admin: 04/25/23 20:22 Dose: 650 mg Albuterol Sulfate (Albuterol Sulfate 90 Mcg 8 Gm Inhaler) 2 puff INHALE Q4H PRN PRN Reason: Shortness Of Breath Or Wheezing Atorvastatin Calcium (Atorvastatin Calcium 80 Mg Tablet) 80 mg PO BEDTIME [facility] Last Admin: 04/25/23 20:22 Dose: 80 mg Calcium Carbonate/Cholecalciferol (Calcium + Vitamin D 250 Mg Tablet) 500 mg PO BID [facility] Last Admin: 04/26/23 07:42 Dose: 500 mg Cyanocobalamin (Cyanocobalamin (Vitamin B-12) 1,000 Mcg Tablet) 1,000 mcg PO DAILY [facility] Last Admin: 04/26/23 07:42 Dose: 1,000 mcg Fluticasone Propionate (Fluticasone Propionate Nasal 16 Gm [place]) 1 spray NOSTRIL-B BID PRN PRN Reason: Allergy Symptoms Heparin Sodium (Porcine) (Heparin Sodium,Porcine Flush 50 Units/5 Ml Syringe) 50 units IVFLUSH QSHIFT [facility] Last Admin: 04/26/23 07:43 Dose: Not Given Dextrose (D5w) 500 mls @ 100 mls/hr IVCONT .Q5H [facility] Last Admin: 04/26/23 07:42 Dose: 100 mls/hr Cefepime HCl 2 gm/ Sodium (Chloride) 50 mls @ 100 mls/hr IV Q8H [facility] Last Infusion: 04/26/23 07:19 Dose: Infused Loratadine (Loratadine 10 Mg Tablet) 10 mg PO DAILY PRN PRN Reason: Allergic Symptoms Midodrine (Midodrine Hcl 5 Mg Tablet) 5 mg PO TIDWM [facility] Last Admin: 04/26/23 07:42 Dose: 5 mg Omeprazole (Omeprazole 20 Mg Capsule.Dr) 20 mg PO BID@0630,1630 [facility] Last Admin: 04/26/23 06:17 Dose: 20 mg Ondansetron HCl (Ondansetron Hcl 4 Mg/2 Ml Vial) 4 mg IVPUSH Q8H PRN PRN Reason: Nausea and Vomiting Senna (Sennosides 8.6 Mg Tablet) 17.2 mg PO BEDTIME PRN PRN Reason: Constipation Sucralfate (Sucralfate Oral Suspension 1 Gm/10 Ml Oral.Susp) 1 gm PO TID [facility] Last Admin: 04/26/23 07:42 Dose: 1 gm Tiotropium [place] (Tiotropium [place] 2.5 Mcg 1 Puff/2.5 Mcg Mist.Inhal) 2 puff INHALE ISABELLA YOMAIRA Last Admin: 04/26/23 08:27 Dose: 2 puff Home Medications Medication Instructions Recorded Confirmed Type albuterol sulfate 90 mcg/actuation 2 puff inhalation Q4H PRN 10/10/21 04/24/23 History aerosol inhaler Shortness Of Breath Or Wheezing atorvastatin 80 mg tablet 80 mg PO QPM 10/10/21 04/24/23 History loratadine 10 mg tablet 10 mg PO DAILY PRN Allergic 10/10/21 04/24/23 History Symptoms fluticasone propionate 50 1 spray intranasal BID PRN Allergy 11/25/22 04/24/23 History mcg/actuation nasal Symptoms spray,suspension cyanocobalamin (vitamin B-12) 1,000 mcg PO DAILY 03/09/23 04/24/23 History 1,000 mcg tablet midodrine 5 mg tablet 5 mg PO TID 03/09/23 04/24/23 History umeclidinium 62.5 mcg/actuation 1 inh inhalation DAILY 03/09/23 04/24/23 History blister powder for inhalation (Incruse Ellipta) Allergies Allergy/AdvReac Type Severity Reaction Status Date / Time codeine [CODEINE] Allergy Intermediate RASH Verified 04/19/23 15:21 ibuprofen [From MOTRIN] Allergy Intermediate RASH Verified 04/19/23 15:21 Penicillins [PENICILLINS] Allergy Intermediate RASH Verified 04/19/23 15:21 pineapple Allergy Unknown Rash Verified 04/19/23 15:21 black pepper Allergy Rash Verified 04/19/23 15:21 motrin Allergy Unknown rash, Uncoded 04/19/23 15:21 swelling PCN Allergy Unknown rash, Uncoded 04/19/23 15:21 swelling Exam Vital signs: Vital Signs Temp 99.0 F 04/26/23 07:52 Pulse 70 04/26/23 08:29 Resp 16 04/26/23 08:29 BP 107/58 L 04/26/23 07:52 Pulse Ox 97 04/26/23 07:52 O2 Del Method Room Air 04/26/23 07:52 Intake & Output 04/25/23 04/26/23 04/26/23 18:59 06:59 18:59 Intake Total 1144 / 3077.334 1933.334 / 3077.334 536.667 / 536.667 Output Total 500 / 1520 1020 / 1520 Balance 644 / 1557.334 913.334 / 1557.334 536.667 / 536.667 Urine Output (Average ml/kg/hr) 0.91 1.85 1.85 Intake: Intake, Oral Amount 240 / 240 0 / 240 Intake (Blood Product) Amount 314 / 314 Plt Aph Pas Pathreduced(E8341) 314 / 314 Unit [id number] Intake, IV Amount 590 / 2523.334 1933.334 / 2523.334 536.667 / 536.667 0.9 % Sodium Chloride 1,000 ml 1000 / 1000 @ 999 mls/hr IV .Q1H1M ONE Rx#: [id number] 0.9 % Sodium Chloride 100 ml @ 100 / 100 100 mls/hr IV ONCE ONE Rx#: [id number] cefEPime HCl 2 gm In 0.9 % 50 / 50 50 / 50 Sodium Chloride 50 ml @ 100 mls /hr IV Q8H [facility] Rx#:[id number] Dextrose 5 % 500 ml @ 100 mls/ 490 / 1373.334 883.334 / 1373.334 486.667 / 486.667 hr IVCONT .Q5H [facility] Rx#: [id number] Output: Output, Urine Amount 1020 / 1020 Output, Urine Amount (Catheter) 500 / 500 0 / 500 purewick 500 / 500 0 / 500 Other: NPO Yes Yes Lunch % Eaten 75% Number of Incontinent Voids 1 Urine purewick Urine Color Yellow Yellow Last Bowel Movement 04/24/23 04/24/23 Weight 45.9 kg Weight 45.9 kg BMI result Body Mass Index 19.8 - Constitutional Present: no acute distress - Routine HEENT Exam Head: Present: normal inspection - Routine Respiratory Exam Absent: accessory muscle use - Routine Cardiovascular Exam Cardiovascular: Present: S1, S2 - Routine Abdominal Exam Absent: mass - Routine Extremities Exam Present: pulses intact. Absent: calf tenderness Data - Labs CBC & Chem 7: 04/26/23 07:20 04/26/23 07:20 Labs: Laboratory Last Values WBC 0.9 X10*3/uL (4.8-10.8) L* 04/26/23 07:20 RBC 3.32 X10*6/uL (4.20-5.50) L 04/26/23 07:20 Hgb 9.6 g/dl (12.0-16.0) L 04/26/23 07:20 Hct 29.8 % (37.0-47.0) L 04/26/23 07:20 MCV 89.8 fL (80.0-98.0) 04/26/23 07:20 MCH 28.9 pg (27.0-33.0) 04/26/23 07:20 MCHC 32.2 g/dl (31.0-35.0) 04/26/23 07:20 RDW 17.1 % (11.0-16.0) H 04/26/23 07:20 Plt Count 20 X10*3/uL (160-400) L* 04/26/23 07:20 MPV 12.5 fL (9.4-12.3) H 04/26/23 07:20 Immature Gran % (Auto) Cancelled 04/26/23 07:20 Neut % (Auto) Cancelled 04/26/23 07:20 Lymph % (Auto) Cancelled 04/26/23 07:20 [place] % (Auto) Cancelled 04/26/23 07:20 Eos % (Auto) Cancelled 04/26/23 07:20 Baso % (Auto) Cancelled 04/26/23 07:20 Lymph # (Auto) Cancelled 04/26/23 07:20 [place] # (Auto) Cancelled 04/26/23 07:20 Eos # (Auto) Cancelled 04/26/23 07:20 Baso # (Auto) Cancelled 04/26/23 07:20 Abs Immat Gran (auto) Cancelled 04/26/23 07:20 Absolute Neuts (auto) Cancelled 04/26/23 07:20 Absolute Nucleated RBC 0.000 X10*3/uL (0.0-0.012) 04/26/23 07:20 Nucleated RBC % (auto) 0.0 /100WBC (0.0-0.2) 04/26/23 07:20 Smear Tech's Comments VERIFIED 04/25/23 08:49 Hold Purple Top SEE NOTE 04/24/23 19:16 Sodium 142 mmol/L (135-145) 04/26/23 07:20 Potassium 3.6 mmol/L (3.3-5.1) 04/26/23 07:20 Chloride 110 mmol/L (96-108) H 04/26/23 07:20 Carbon Dioxide 27 mmol/L (22-29) 04/26/23 07:20 Anion Gap 9 (12-20) L 04/26/23 07:20 BUN 11 mg/dL (9-16) 04/26/23 07:20 Creatinine 0.58 mg/dL (0.5-1.4) 04/26/23 07:20 Estim Creat Clear Calc 59.2 04/26/23 07:20 Estimated GFR > 60 04/26/23 07:20 Random Glucose 88 mg/dL (60-115) 04/26/23 07:20 Lactic Acid 1.3 mmol/L (0.5-2.0) 04/25/23 20:40 Calcium 7.5 mg/dL (8.4-10.2) L 04/26/23 07:20 Magnesium 1.6 mg/dL (1.6-2.6) 04/24/23 19:16 Hold Yellow Top See Note 04/24/23 19:16 Blood Type O Positive 04/24/23 19:16 Antibody Screen NEGATIVE 04/24/23 19:16 - Imaging Radiologist's impression: ITS Impressions Venous Duplex 04/24/23 16:47 IMPRESSION: No DVT demonstrated in the right and left lower extremity. Assessment and Plan Patient Active problem list reviewed?: Yes (1) Pancytopenia Status: Acute Assessment and plan: 1. This is a 77-year-old woman with gastric lymphoma who is receiving chemotherapy with R felix/ CHP regimen. Status post cycle 5 on 04/17/2023. Because of recurrent GI bleeding and PET scan findings of abnormal mural thickening of the cecum and proximal ascending colon, she was scheduled to undergo colonoscopy tomorrow. Unfortunately she has developed significant pancytopenia related to recent chemotherapy. She is neutropenic as well as thrombocytopenic. She is receiving platelet transfusion today. However, because of neutropenia, it would not be safe to proceed with colonoscopy tomorrow unless her counts improve, ANC at least around 1000. She received Neulasta on 04/19/2023. Follow neutropenic precautions. CBC shows platelet count of 20. Hold of platelet transfusion today. She remains neutropenic. 2. Neutropenic fever. Temperature of 100.5 F yesterday. She was slightly hypotensive. She was started on cefepime, received IV fluids. Blood cultures are pending. - Time Spent With Patient Time Spent with Patient (in minutes): 10
[2023-04-26 09:20] LABS: Band Neutrophils Percent 32 % (3-5); Basophils Percent Manual 1 % (0-2); Eosinophils Percent Manual 2 % (0-4); Lymphocytes Absolute Manual 0.4 X10*3/uL (1.2-4.9); Lymphocytes Percent Manual 40 % (20-40); Metamyelocytes Percent 1 %; Monocytes Absolute Manual 0.1 X10*3/uL (0.1-1.2); Monocytes Percent Manual 6 % (2-11); Neutrophils Absolute Manual 0.5 X10*3/uL (2.0-8.3); Neutrophils Percent Manual 18 % (45-73)
[2023-04-26 09:21] LABS: Burr Cells 3+ (>5) /OIF; RBC Morphology NOTED; Schistocytes 1+ (0-2) /OIF
[2023-04-26 09:24] LABS: Dohle Bodies PRESENT
[2023-04-26 09:25] LABS: Platelet Estimate DECREASED (NORMAL); Platelet Morphology Comment NORMAL
[2023-04-26] MEDS: polyethylene glycoL 3350 17 GM POWD.PACK PO (12:05)
--- NOTE | 2023-04-26 14:32 | P.PNIM_ITS ---
Subjective Subjective Date of Service: 04/26/23 Interval History: Seen in follow up for gastic lymphoma, pancytopenia Interval history: No complaints, resting comfortably in bed, tolerating diet. Fevers overnight to 100.6. SLight improvement in blood counts, still with significant pancytopenia/thombocytopenia/neutropenia Review of Systems Review of Systems: Yes all other systems are reviewed and are negative Physical Exam 2 Vital Signs: Vital Signs: Last Vital Signs Temp 98.1 F 04/26/23 11:00 Pulse 73 04/26/23 11:00 Resp 18 04/26/23 11:00 BP 92/53 L 04/26/23 11:00 Pulse Ox 99 04/26/23 11:00 O2 Del Method Room Air 04/26/23 11:00 BMI result Body Mass Index 19.8 Constitutional - Awake and Alert, No apparent distress Eyes - PERRLA, EOMI Cardiovascular - S1S2, RRR, No edema Respiratory - Normal lung expansion, Normal respiratory effort, No respiratory distress, CTA bilaterally Gastrointestinal - NT / ND; +BS; No rebound or guarding Extremities - no calf tenderness bilaterally, no swelling Skin - Warm/Dry Neurological - Alert & oriented x3 Psychological - Appropriate affect Objective Data Active Medications Acetaminophen (Acetaminophen 325 Mg Tablet) 650 mg PO Q6H PRN PRN Reason: Pain, Mild (Pain Scale 1-3) Last Admin: 04/25/23 20:22 Dose: 650 mg Documented By: HALINA Albuterol Sulfate (Albuterol Sulfate 90 Mcg 8 Gm Inhaler) 2 puff INHALE Q4H PRN PRN Reason: Shortness Of Breath Or Wheezing Atorvastatin Calcium (Atorvastatin Calcium 80 Mg Tablet) 80 mg PO BEDTIME [facility] Last Admin: 04/25/23 20:22 Dose: 80 mg Documented By: HALINA Calcium Carbonate/Cholecalciferol (Calcium + Vitamin D 250 Mg Tablet) 500 mg PO BID [facility] Last Admin: 04/26/23 07:42 Dose: 500 mg Documented By: HALINA Cyanocobalamin (Cyanocobalamin (Vitamin B-12) 1,000 Mcg Tablet) 1,000 mcg PO DAILY [facility] Last Admin: 04/26/23 07:42 Dose: 1,000 mcg Documented By: HALINA Fluticasone Propionate (Fluticasone Propionate Nasal 16 Gm [place]) 1 spray NOSTRIL-B BID PRN PRN Reason: Allergy Symptoms Heparin Sodium (Porcine) (Heparin Sodium,Porcine Flush 50 Units/5 Ml Syringe) 50 units IVFLUSH QSHIFT [facility] Last Admin: 04/26/23 07:43 Dose: Not Given Documented By: HALINA Non-Admin Reason: IV Running Cefepime HCl 2 gm/ Sodium (Chloride) 50 mls @ 100 mls/hr IV Q8H [facility] Last Admin: 04/26/23 13:18 Dose: 100 mls/hr Documented By: ANNE Loratadine (Loratadine 10 Mg Tablet) 10 mg PO DAILY PRN PRN Reason: Allergic Symptoms Midodrine (Midodrine Hcl 5 Mg Tablet) 5 mg PO TIDWM [facility] Last Admin: 04/26/23 12:05 Dose: 5 mg Documented By: ANNE Omeprazole (Omeprazole 20 Mg Capsule.Dr) 20 mg PO BID@0630,1630 [facility] Last Admin: 04/26/23 06:17 Dose: 20 mg Documented By: HALINA Ondansetron HCl (Ondansetron Hcl 4 Mg/2 Ml Vial) 4 mg IVPUSH Q8H PRN PRN Reason: Nausea and Vomiting Polyethylene Glycol (Polyethylene Glycol 3350 17 Gm Powd.Pack) 17 gm PO DAILY [facility] Last Admin: 04/26/23 12:05 Dose: 17 gm Documented By: ANNE Senna (Sennosides 8.6 Mg Tablet) 17.2 mg PO BEDTIME PRN PRN Reason: Constipation Sucralfate (Sucralfate Oral Suspension 1 Gm/10 Ml Oral.Susp) 1 gm PO TID [facility] Last Admin: 04/26/23 07:42 Dose: 1 gm Documented By: HALINA Tiotropium [place] (Tiotropium [place] 2.5 Mcg 1 Puff/2.5 Mcg Mist.Inhal) 2 puff INHALE RDAILY [facility] Last Admin: 04/26/23 08:27 Dose: 2 puff Documented By: COY Labs 04/26/23 07:20 04/26/23 07:20 Labs: Laboratory Results - last 24 hr 04/25/23 04/26/23 20:40 07:20 MCV 89.8 MCH 28.9 MCHC 32.2 RDW 17.1 H Plt Count 20 L* MPV 12.5 H Immature Gran % (Auto) Cancelled Neut % (Auto) Cancelled Lymph % (Auto) Cancelled [place] % (Auto) Cancelled Eos % (Auto) Cancelled Baso % (Auto) Cancelled Lymph # (Auto) Cancelled [place] # (Auto) Cancelled Eos # (Auto) Cancelled Baso # (Auto) Cancelled Abs Immat Gran (auto) Cancelled Absolute Neuts (auto) Cancelled Absolute Nucleated RBC 0.000 Nucleated RBC % (auto) 0.0 Neutrophils % (Manual) 18 L Band Neutrophils % 32 H Lymphocytes % (Manual) 40 Monocytes % (Manual) 6 Eosinophils % (Manual) 2 Basophils % (Manual) 1 Metamyelocytes % 1 Abs Neuts (Manual) 0.5 L Lymphocytes # (Manual) 0.4 L Monocytes # (Manual) 0.1 Dohle Bodies PRESENT Platelet Estimate DECREASED Plt Morphology Comment NORMAL RBC Morphology NOTED Magdiel Cells 3+ (>5) Schistocytes 1+ (0-2) Anion Gap 9 L Estim Creat Clear Calc 59.2 Estimated GFR > 60 Random Glucose 88 Lactic Acid 1.3 Calcium 7.5 L Assessment and Plan (1) Pancytopenia: Status: Acute (2) Acute blood loss anemia: Status: Acute (3) GI bleed: Status: Acute (4) Lymphoma malignant, large cell: Status: Acute (5) Severe protein-calorie malnutrition: Status: Acute (6) Neutropenia: Status: Acute (7) Severe thrombocytopenia: Status: Acute (8) Neutropenic fever: Status: Acute Plan 77-year-old female with 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 Becerril, chronic anemia, orthostasis, hyperlipidemia, and asthma admitted directly from Oncology due to GI bleed with thrombocytopenia. #Neutropenic fever -WBC 0.9, ANC 0.5. Febrile to 100.6 last night -Continue cefepime for empiric coverage -Blood cultures pending, lactic acid normal -cxr and UA pending -Oncology input appreciated -neutropenic precautions #Pancytopenia with Neutropenia/severe thrombocytopenia -slight improvement following platelet transfusion 04/25 with WBC 0.9, PLT20 -2/2 malignancy -Per oncology, follow labs, no further interventions regarding pancytopenia. Has already received Neulasta. Steroids not indicated at this time -follow cbc #Acute blood loss anemia- due to acute GI bleed- improving -H/H improving. No further bleeding appreciated -Received 1 unit PRBC in oncology 18 -EGG/Colonoscopy on hold due to pancytopenia/severe thombocytopenia -regular, soft diet -GI input appreciated. Can complete egd/colonoscopy at later date after discharge due to above -follow CBC -monitor on telemetry #BLE edema/swelling -venous duplex ble r/o dvt- negative -continue furosemide #diffuse large B-cell lymphoma of stomach -last cycle (4) of Kadeem R-CHP 04/17 -oncology consult # mild intermittent asthma -no acute exacerbation -continue maintenance inhalers, albuterol p.r.n. # GERD -continue PPI # orthostatic hypotension -continue midodrine #Severe protein malnourishment -add supplements, nutrition following DVT prophylaxis- SCPs Full code Pt requires ongoing inpt stay due to severe pancytopenia with neutropenic fever requiring neutropenic precautions, platelet transfusion with cardiac monitoring, expert consulation and close monitoring of blood counts. Dispo: DC once afebrile, counts stabilitized with WBC trending up and PLT >20. EGD and colonoscopy at future date once counts improved Quality Stroke Does the patient have a stroke diagnosis?: No VTE Prior VTE?: No VTE Risk Level:: Medical - moderate - high VTE Device Contraindication: N/A - Device Ordered VTE Drug Contraindication: Treatment Not Indicated
[2023-04-26] MEDS: Heparin Sodium,Porcine Flush 50 UNITS/5 ML SYRINGE IVFLUSH (16:27)
--- NOTE | 2023-04-26 17:10 | P.CDIM_ITS ---
PROVIDER RESPONSE TEXT: To clarify, the appropriate diagnosis supported by the clinical indicators: Pressure (decubitus) ulcer, stage 2 coccyx, present on admission QUERY TEXT: PHYSICIAN'S DOCUMENTATION REQUEST Date of Query: 04/26/2023 12:03 PM EST Patient Name: Delmy Ann Admit Date: 04/24/2023 Dear Jany Tom, A review of the medical record indicates additional documentation may be needed. Please review below and update the documentation accordingly. Clinical Indicators: Per Wound Consult 04/25/23: Coccyx Etiology: stage 2 Pressure Injury POA (Present on Admission) Measurements: 0.4cm x 0.4cm x 0.1cm Wound Bed: red moist clean wound bed Drainage / Odor: scant serosang Edges: well defined and attached Cheryl wound: Slow to bee erythema noted, MASD noted with hyperpigmented tissue No Induration, Fluct uance or Warmth noted Pain: reports pain at coccyx wound site Goals of Treatment: Off Load pressure - Triad to aid in autolytic moist wound healing, and foam to pr otect from moisture and friction Based on the above, could you please provide further information regarding the ulcer/wound: Pressure (decubitus) ulcer, stage 2 coccyx, present on admission Other (explain) Clinically unable to determine (explain) Thank you, Angela Lovelace RN Use of terms such as suspected, likely, concern for, or probable (associated with a specific diagnosi s that is being evaluated, monitored, or treated as if it exists) are acceptable and can be coded in the inpatient se tting, when documented at the time of discharge. Please use your independent medical judgment in providing your response. THIS QUERY IS PART OF THE PERMANENT MEDICAL RECORD
[2023-04-26 20:59] LABS: Appearance Urine Clear; Color Urine Yellow; Glucose Urine UA Negative (Negative); Leukocyte Esterase Urine Negative (Negative); Nitrite Urine Negative (Negative); PH 7.5 (5.0-9.0); Specific Gravity - Urine <= 1.005 (1.005-1.025); Urine Blood Negative (Negative); Urine Ketones Negative (Negative); Urine Protein Negative (Neg-Trace)
[2023-04-26] MEDS: Atorvastatin Calcium 80 MG TABLET PO (21:26)
[2023-04-27] MEDS: Heparin Sodium,Porcine Flush 50 UNITS/5 ML SYRINGE IVFLUSH ×4 (00:23→23:48)
[2023-04-27 02:34] VITALS: BP 110/56; PULSE 77; RESP 19; TEMP 36.5; O2SAT 98
[2023-04-27] MEDS: cefEPime HCl 2 GM in 0.9 % Sodium Chloride 50 ML IV ×3 (06:13→20:37)
[2023-04-27] MEDS: Omeprazole 20 MG CAPSULE.DR PO ×2 (06:14→16:16)
[2023-04-27] MEDS: Tiotropium Bromide 2.5 mcg 1 PUFF/2.5 MCG MIST.INHAL 2 PUFF INHALE (07:46)
[2023-04-27 07:48] VITALS: PULSE 78; RESP 18; O2SAT 97
[2023-04-27 08:00] VITALS: BP 102/57; PULSE 82; RESP 20; TEMP 36.9; O2SAT 96
[2023-04-27 08:25] LABS: Hematocrit 32.2 % (37.0-47.0); Hemoglobin 10.3 g/dl (12.0-16.0); Mean Corpuscular Hemoglobin 29.5 pg (27.0-33.0); Mean Corpuscular Volume 92.3 fL (80.0-98.0); Mean Platelet Volume 14.4 fL (9.4-12.3); Red Blood Count 3.49 X10*6/uL (4.20-5.50); Red Cell Distribution Width 16.9 % (11.0-16.0)
[2023-04-27 08:26] LABS: PLT ABN DIST 1; Platelet Count 22 X10*3/uL (160-400); WBC ABN SCTR FOR CBC 1; White Blood Count 2.4 X10*3/uL (4.8-10.8)
[2023-04-27 08:41] LABS: Anion Gap 9 (12-20); Blood Urea Nitrogen 11 mg/dL (9-16); Carbon Dioxide 26 mmol/L (22-29); Chloride 112 mmol/L (96-108); Estimated Glomerular Filt Rate > 60; Glucose Random 85 mg/dL (60-115); Potassium 3.7 mmol/L (3.3-5.1); Sodium 143 mmol/L (135-145)
[2023-04-27 09:06] LABS: Band Neutrophils Percent 17 % (3-5); Basophils Percent Manual 1 % (0-2); Dohle Bodies PRESENT; Eosinophils Percent Manual 1 % (0-4); Lymphocytes Absolute Manual 0.4 X10*3/uL (1.2-4.9); Lymphocytes Percent Manual 16 % (20-40); Monocytes Absolute Manual 0.1 X10*3/uL (0.1-1.2); Monocytes Percent Manual 3 % (2-11); Neutrophils Absolute Manual 1.9 X10*3/uL (2.0-8.3); Neutrophils Percent Manual 62 % (45-73)
[2023-04-27 09:07] LABS: Platelet Estimate DECREASED (NORMAL); Toxic Vacuolation PRESENT
[2023-04-27 09:09] LABS: Microcytosis 1+ (5-14) /OIF; RBC Morphology NOTED
[2023-04-27 09:10] LABS: Hypochromasia 1+ (5-14) /OIF; Platelet Morphology Comment NORM
[2023-04-27 09:11] LABS: Burr Cells 2+ (3-5) /OIF
--- NOTE | 2023-04-27 09:20 | MHC.CLN ---
F/U PT IS SEVERELY MALNOURISHED SEE FULL CLINICAL NUTRITION ASSESSMENT DATED 04/25/23 PT FAMILIAR TO FACILITY AND PREVIOUS DX MALNOURISHED (SEE NUTRITION ASSESSMENTS DATED 11/27/22 & 04/13/23) DIET ADVANCED TO NEUTROPENIC GRD/M/S-APPROPRIATE PT RECEIVING ENSURE MAX BID RECOMMEND SWITCHING TO ENSURE PLUS HIGH PROTEIN TO PROVIDE 700KCALS, 40G PROTEIN MONITOR PO INTAKE AND ENCOURAGE SUPPLEMENT
[2023-04-27] MEDS: Calcium + Vitamin D 250 MG TABLET 500 MG PO ×2 (09:22→20:37)
[2023-04-27] MEDS: polyethylene glycoL 3350 17 GM POWD.PACK PO (09:22)
[2023-04-27] MEDS: Cyanocobalamin (Vitamin B-12) 1,000 MCG TABLET 1000 MCG PO (09:23)
[2023-04-27] MEDS: Midodrine HCl 5 MG TABLET PO ×3 (09:23→16:16)
[2023-04-27] MEDS: Sucralfate Oral Suspension 1 GM/10 ML ORAL.SUSP PO ×3 (09:23→20:37)
--- NOTE | 2023-04-27 13:43 | P.PNIM_ITS ---
Subjective Subjective Date of Service: 04/27/23 Interval History: seen and examined this morning follow up for neutropenic fever. no further fever, feeling well Review of Systems Review of Systems: Yes all other systems are reviewed and are negative Constitutional Constitutional: Denies chills and Denies fever(s) Cardiovascular Cardiovascular: Denies chest pain, Denies palpitations and Denies dyspnea Respiratory Respiratory: Denies cough and Denies dyspnea Gastrointestinal Gastrointestinal: Denies abdominal pain Endocrine Endocrine: Denies palpitations Physical Exam 2 Vital Signs: Vital Signs: Last Vital Signs Temp 98.5 F 04/27/23 08:00 Pulse 82 04/27/23 08:00 Resp 20 04/27/23 08:00 BP 102/57 L 04/27/23 08:00 Pulse Ox 96 04/27/23 08:00 O2 Del Method Room Air 04/27/23 08:00 BMI result Body Mass Index 19.8 Const: General: cooperative, comfortable, no acute distress, alert and awake Nutritional Appearance: thin Orientation/consciousness: patient oriented x3 Chest: Other: port right chest wall, no surrounding erythema Resp: Effort & Inspection: normal respiratory effort, able to speak in complete sentences, no respiratory distress and no use of accessory muscles Cardio: Rate: regular rate GI: Inspection: No distended Palpation (GI): Soft to palpation and nontender Neuro: Other: grossly nonfocal General: patient oriented x3 Extrem: General: Yes no pedal edema Objective Data Active Medications Acetaminophen (Acetaminophen 325 Mg Tablet) 650 mg PO Q6H PRN PRN Reason: Pain, Mild (Pain Scale 1-3) Last Admin: 04/25/23 20:22 Dose: 650 mg Documented By: HALINA Albuterol Sulfate (Albuterol Sulfate 90 Mcg 8 Gm Inhaler) 2 puff INHALE Q4H PRN PRN Reason: Shortness Of Breath Or Wheezing Atorvastatin Calcium (Atorvastatin Calcium 80 Mg Tablet) 80 mg PO BEDTIME [facility] Last Admin: 04/26/23 21:26 Dose: 80 mg Documented By: GIBSON Calcium Carbonate/Cholecalciferol (Calcium + Vitamin D 250 Mg Tablet) 500 mg PO BID [facility] Last Admin: 04/27/23 09:22 Dose: 500 mg Documented By: SOLOMON Cyanocobalamin (Cyanocobalamin (Vitamin B-12) 1,000 Mcg Tablet) 1,000 mcg PO DAILY [facility] Last Admin: 04/27/23 09:23 Dose: 1,000 mcg Documented By: SOLOMON Fluticasone Propionate (Fluticasone Propionate Nasal 16 Gm Emm[place]) 1 spray NOSTRIL-B BID PRN PRN Reason: Allergy Symptoms Heparin Sodium (Porcine) (Heparin Sodium,Porcine Flush 50 Units/5 Ml Syringe) 50 units IVFLUSH QSHIFT [facility] Last Admin: 04/27/23 09:23 Dose: 50 units Documented By: SOLOMON Cefepime HCl 2 gm/ Sodium (Chloride) 50 mls @ 100 mls/hr IV Q8H [facility] Last Infusion: 04/27/23 13:22 Dose: Infused Documented By: SOLOMON Loratadine (Loratadine 10 Mg Tablet) 10 mg PO DAILY PRN PRN Reason: Allergic Symptoms Midodrine (Midodrine Hcl 5 Mg Tablet) 5 mg PO TIDWM [facility] Last Admin: 04/27/23 12:13 Dose: 5 mg Documented By: SOLOMON Omeprazole (Omeprazole 20 Mg Capsule.Dr) 20 mg PO BID@0630,1630 [facility] Last Admin: 04/27/23 06:14 Dose: 20 mg Documented By: ANTONIO Ondansetron HCl (Ondansetron Hcl 4 Mg/2 Ml Vial) 4 mg IVPUSH Q8H PRN PRN Reason: Nausea and Vomiting Polyethylene Glycol (Polyethylene Glycol 3350 17 Gm Powd.Pack) 17 gm PO DAILY [facility] Last Admin: 04/27/23 09:22 Dose: 17 gm Documented By: SOLOMON Senna (Sennosides 8.6 Mg Tablet) 17.2 mg PO BEDTIME PRN PRN Reason: Constipation Sucralfate (Sucralfate Oral Suspension 1 Gm/10 Ml Oral.Susp) 1 gm PO TID [facility] Last Admin: 04/27/23 09:23 Dose: 1 gm Documented By: SOLOMON Tiotropium Andreas (Tiotropium Andreas 2.5 Mcg 1 Puff/2.5 Mcg Mist.Inhal) 2 puff INHALE RDAILY [facility] Last Admin: 04/27/23 07:46 Dose: 2 puff Documented By: COY Labs 04/27/23 07:30 04/27/23 07:30 Labs: Laboratory Results - last 24 hr 04/26/23 04/27/23 20:30 07:30 MCV 92.3 MCH 29.5 MCHC 32.0 RDW 16.9 H Plt Count 22 L MPV 14.4 H Immature Gran % (Auto) Cancelled Neut % (Auto) Cancelled Lymph % (Auto) Cancelled [place] % (Auto) Cancelled Eos % (Auto) Cancelled Baso % (Auto) Cancelled Lymph # (Auto) Cancelled Vernon # (Auto) Cancelled Eos # (Auto) Cancelled Baso # (Auto) Cancelled Abs Immat Gran (auto) Cancelled Absolute Neuts (auto) Cancelled Absolute Nucleated RBC 0.000 Nucleated RBC % (auto) 0.0 Neutrophils % (Manual) 62 Band Neutrophils % 17 H Lymphocytes % (Manual) 16 L Monocytes % (Manual) 3 Eosinophils % (Manual) 1 Basophils % (Manual) 1 Abs Neuts (Manual) 1.9 L Lymphocytes # (Manual) 0.4 L Monocytes # (Manual) 0.1 Toxic Vacuolation PRESENT Dohle Bodies PRESENT Platelet Estimate DECREASED Plt Morphology Comment NORM RBC Morphology NOTED Hypochromasia 1+ (5-14) Microcytosis 1+ (5-14) Magdiel Cells 2+ (3-5) Anion Gap 9 L Estim Creat Clear Calc 52.0 Estimated GFR > 60 Random Glucose 85 Calcium 8.0 L D Urine Color Yellow Urine Appearance Clear Urine pH 7.5 Ur Specific [place] <= 1.005 Urine Protein Negative Urine Glucose (UA) Negative Urine Ketones Negative Urine Blood Negative Urine Nitrite Negative Ur Leukocyte Esterase Negative Microbiology Microbiology Results: Microbiology 04/25/23 20:08 Blood Culture - Preliminary Blood - Venous No growth after 24 hours. 04/25/23 20:05 Blood Culture - Preliminary Blood - Venous No growth after 24 hours. 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 Becerril, chronic anemia, orthostasis, hyperlipidemia, and asthma admitted directly from Oncology due to GI bleed with thrombocytopenia. #Neutropenic fever white count improving, has remained afebrile no source of infection identified Continue cefepime for empiric coverage until blood cultures negative x 48 hours -Oncology input appreciated -neutropenic precautions #Pancytopenia with Neutropenia/severe thrombocytopenia -slight improvement following platelet transfusion 04/25 -2/2 malignancy -Per oncology, follow labs, no further interventions regarding pancytopenia. Has already received Neulasta. Steroids not indicated at this time -follow cbc #Acute blood loss anemia- due to acute GI bleed- improving -H/H stable, No further bleeding appreciated -Received 1 unit PRBC in oncology 04/23 -EGG/Colonoscopy on hold due to pancytopenia/severe thombocytopenia -regular, soft diet -GI input appreciated. Can complete egd/colonoscopy at later date after discharge due to above #BLE edema/swelling -venous duplex negative for dvt #diffuse large B-cell lymphoma of stomach -last cycle (4) of Kadeem R-CHP 04/17 -outpatient oncology follow up # mild intermittent asthma -no acute exacerbation -continue maintenance inhalers, albuterol p.r.n. # GERD -continue PPI # orthostatic hypotension -continue midodrine #Severe protein malnourishment -add supplements, nutrition following DVT prophylaxis- SCPs Full code Attending - Dr. Donaldson Pt requires ongoing inpt stay due to severe pancytopenia with neutropenic fever requiring neutropenic precautions, expert consultation and close monitoring of blood counts. Dispo: DC once afebrile, counts stabilitized with WBC trending up and PLT >20 and blood cultures negative. EGD and colonoscopy at future date once counts improved. Seeen by PT rec home without services. Quality Stroke Does the patient have a stroke diagnosis?: No VTE Prior VTE?: No VTE Risk Level:: Medical - moderate - high VTE Device Contraindication: N/A - Device Ordered VTE Drug Contraindication: Treatment Not Indicated
--- NOTE | 2023-04-27 14:34 | MHC.CM.PN ---
EMR reviewed and per MD rounds, pt is not medically cleared for D/C due to pending blood cultures. PT recommends home with family support at time of D/C. CM will continue to follow.
[2023-04-27 15:25] VITALS: BP 96/51; PULSE 74; RESP 15; TEMP 36.3; O2SAT 97
[2023-04-27 20:00] VITALS: BP 106/56; PULSE 70; RESP 17; TEMP 37.1; O2SAT 98
[2023-04-27] MEDS: Atorvastatin Calcium 80 MG TABLET PO (20:37)
[2023-04-28 03:51] VITALS: BP 106/57; PULSE 75; RESP 16; TEMP 36.8; O2SAT 97
[2023-04-28] MEDS: cefEPime HCl 2 GM in 0.9 % Sodium Chloride 50 ML IV ×2 (06:00→13:06)
[2023-04-28] MEDS: Omeprazole 20 MG CAPSULE.DR PO (06:04)
[2023-04-28] MEDS: Tiotropium Bromide 2.5 mcg 1 PUFF/2.5 MCG MIST.INHAL 2 PUFF INHALE (07:37)
[2023-04-28 07:39] VITALS: PULSE 77; RESP 18; O2SAT 98
[2023-04-28 07:40] VITALS: BP 110/66; PULSE 63; RESP 20; TEMP 36.9; O2SAT 98
[2023-04-28] MEDS: Midodrine HCl 5 MG TABLET PO ×2 (08:26→13:06)
[2023-04-28] MEDS: polyethylene glycoL 3350 17 GM POWD.PACK PO (08:26)
[2023-04-28] MEDS: Sennosides 8.6 MG TABLET 17.2 MG PO (08:26)
[2023-04-28] MEDS: Calcium + Vitamin D 250 MG TABLET 500 MG PO (08:26)
[2023-04-28] MEDS: Cyanocobalamin (Vitamin B-12) 1,000 MCG TABLET 1000 MCG PO (08:26)
[2023-04-28] MEDS: Sucralfate Oral Suspension 1 GM/10 ML ORAL.SUSP PO (08:27)
[2023-04-28] MEDS: Heparin Sodium,Porcine Flush 50 UNITS/5 ML SYRINGE IVFLUSH (08:28)
[2023-04-28 09:02] LABS: Hematocrit 31.7 % (37.0-47.0); Hemoglobin 10.1 g/dl (12.0-16.0); Mean Corpuscular HGB Conc 31.9 g/dl (31.0-35.0); Mean Corpuscular Hemoglobin 28.8 pg (27.0-33.0); Mean Corpuscular Volume 90.3 fL (80.0-98.0); Mean Platelet Volume 14.2 fL (9.4-12.3); Red Blood Count 3.51 X10*6/uL (4.20-5.50); White Blood Count 3.5 X10*3/uL (4.8-10.8)
[2023-04-28 09:03] LABS: Platelet Count 26 X10*3/uL (160-400)
--- NOTE | 2023-04-28 13:38 | MHC.CM.PN ---
Addendum entered by Maisha Gonzalez 04/29/23 13:44: CM CALLED [facility] ANSWERING [facility] YESTERDAY AND REQUESTED A RETURN CALL TO INFORM THEM OF PTS DC CM PROVIDED A CELL NUMBER SO THAT THEY COULD CALL AT ANY TIME NO RETURN CALL RECEIVED OF YET Addendum entered by Maisha Gonzalez 04/28/23 15:49: PER INTAKE NOTE, PT ALSO ACTIVE WITH [facility] REFERRAL SENT ALONG WITH NOTICE OF DC Original Note: PT WILL DC HOME TODAY WITH RESUMPTION OF INSTRUMENT LENS GRINDER AND FAMILY SUPPORT FAMILY TO TRANSPORT
--- NOTE | 2023-04-28 13:53 | P.DS_ITS ---
DS: Providers Provider Date of Service: 04/28/23 Date of admission: 04/24/23 13:52 Primary care physician: Mis Gutierrez MD Consults: 04/24/23 13:52 Consult to Gastroenterology Routine Consulting Provider: Jayy Patel Reason for consultation: gastic lymphoma, anemia 04/24/23 15:54 Consult to Hematology / Oncology Routine Consulting Provider: Rowena Becerril Reason for consultation: gastic lymphoma DS: Diagnosis Discharge Diagnosis (1) Neutropenic fever: Status: Acute (2) Severe thrombocytopenia: Status: Acute DS: Summary Hospital Course Hospital Course: HP as per admitting provider. 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 Becerril, chronic anemia, orthostasis, hyperlipidemia, and asthma admitted directly from Oncology due to GI bleed with thrombocytopenia. The patient completed 4th cycle of Kadeem-R-CHP on 04/17 and has port-a-cath in place. She was seen yesterday in on cology with H/H 8.5/26.5% (was 11.0/33.6% on 04/17), PLT 40,000 (down from 220,000 04/17). PET scan on 01/16/2023 showed significant mural thickening involving the fundus of the body of the stomach consistent with current diagnosis diffuse large B-cell lymphoma with gastric involvement. There is also noted to be a perigastric solid lymphadenopathy as well as circumferential mural thickening of the cecum adjacent proximal ascending colon among other findings. She did undergo endoscopy due to anemia on 03/13 which showed a malignant gastric ulcer that was not bleeding and was being considered for outpatient colonoscopy. However in light of acute on chronic anemia, will be admitted for further management of acute GI bleed with plan for colonoscopy and platelet transfusion. Patient denies any lightheadedness, melena, hematochezia, abdominal pain, nausea, vomiting, shortness of breath, chest pain. Denies any urinary symptoms, fevers, chills, dysphagia. She does report generalized weakn ess. 77-year-old woman treated for acute blood loss anemia secondary to GI bleed, pancytopenia, severe neutropenia. Hemoglobin 8.5, hematocrit 26.5, not at baseline. Received 1 unit of packed red blood cells with good rise in H&H. Seen by Gastroenterology but did not think that he needed to have a colonoscopy and at this time especially because his platelet count was low. Diet was advanced and no further issues with low hemoglobin. She does have history of diffuse large B-cell lymphoma of the stomach and is currently on chemotherapy which is also likely culprit of the leukopenia. She was treated with cefepime for 4 days. She also received a unit of platelets to pancytopenia. Platelet count today 26. He did have some bilateral lower extremity edema, venous duplex bilaterally was negative and she was treated with furosemide. Plan is for patient to be discharged home and follow-up with Oncology. Large B-cell lymphoma. Follow-up with Oncology for further treatment Mild intermittent asthma. No exacerbation during hospitalization. Continue medications GERD. Continue PPI Orthostatic hypotension. Continue midodrine Severe protein calorie malnutrition. Continue adding supplementation and protein to diet Time Attestation Discharge coordination time: Greater than 30 minutes Quality: Safe Use of Opioids Does Pt have an Active Cancer Diagnosis on the Problem List?: No Quality: Stroke Does the patient have a stroke diagnosis?: No Physical Exam Vital Signs: Vital Signs: Last Vital Signs Temp 98.5 F 04/28/23 07:40 Pulse 63 04/28/23 07:40 Resp 20 04/28/23 07:40 BP 110/66 04/28/23 07:40 Pulse Ox 98 04/28/23 07:40 O2 Del Method Room Air 04/28/23 07:40 BMI result Body Mass Index 19.8 Appearing in no acute distress head is normocephalic atraumatic eyes pupils are PERRLA sclera is anicteric mouth throat mucous membranes are intact and moist neck is supple no lymphadenopathy, no JVD noted lung sounds are clear to auscultation heart regular rate rhythm, clear S1, S2 positive bowel sounds, abdomen is soft, nontender neuro patient is alert x3, no focal deficits DS: Data Data Completed and Pending Completed studies during hospitalization [Text1]: Procedures Excision of Stomach, Pylorus, Via Natural or Artificial Opening Endoscopic, Diagnostic (11/25/22) Transfusion of Nonautologous Red Blood Cells into Peripheral Vein, Percutaneous Approach (04/12/23) Labs on day of discharge: Laboratory Results - last 24 hr 04/28/23 08:50 WBC 3.5 L RBC 3.51 L Hgb 10.1 L Hct 31.7 L MCV 90.3 MCH 28.8 MCHC 31.9 RDW 17.0 H Plt Count 26 L MPV 14.2 H Absolute Nucleated RBC 0.000 Nucleated RBC % (auto) 0.0 Preliminary micro results at discharge 04/25/23 20:08 Blood Culture - Preliminary Blood - Venous No growth after 48 hours. 04/25/23 20:05 Blood Culture - Preliminary Blood - Venous No growth after 48 hours. Discharge Plan Discharge Anticipated Discharge Date/Time: 04/28/23 13:29 Patient Disposition: Home Health Service Discharge Diagnosis: Neutropenic fever Pancytopenia Acute blood loss anemia secondary to GI bleed Bilateral lower extremity edema Referrals: Mis Gutierrez MD [Primary Care Provider] - 1 Week Discharge Medications: Continued fluticasone propionate 50 mcg/actuation spray,suspension 1 spray intranasal BID PRN (Reason: Allergy Symptoms) calcium carbonate-vitamin D3 [Calcium 600 + D(3)] 600 mg-10 mcg (400 unit) Tablet 1 tab PO BID Qty: 60 5RF sucralfate 100 mg/mL suspension 10 ml PO TID Qty: 1000 0RF ondansetron 8 mg tablet,disintegrating 8 mg PO Q8H PRN (Reason: Nausea) Qty: 30 3RF heparin lock flush (porcine) 10 unit/mL solution 50 unit IV Q24H 30 Days albuterol sulfate 90 mcg/actuation HFA aerosol inhaler 2 puff inhalation Q4H PRN (Reason: Shortness Of Breath Or Wheezing) atorvastatin 80 mg tablet 80 mg PO QPM loratadine 10 mg tablet 10 mg PO DAILY PRN (Reason: Allergic Symptoms) Incruse Ellipta 62.5 mcg/actuation blister with device 1 inh inhalation DAILY midodrine 5 mg tablet 5 mg PO TID cyanocobalamin (vitamin B-12) 1,000 mcg tablet 1,000 mcg PO DAILY omeprazole 20 mg capsule,delayed release(DR/EC) 20 mg PO BID 90 Days Qty: 180 0RF Discharge Orders: Discharge Order (Routine); Ordered 04/28/23 Ordered By: Alana Reaves Diet: Advance to usual diet Activity on Discharge: As tolerated Stand Alone Forms: Patient Portal Discharge page Care Plan Goals: Monitor for any signs of infection including fever, chills Health Concerns: Neutropenic fever Pancytopenia Acute blood loss anemia secondary to GI bleed Bilateral lower extremity edema Plan of Treatment: Follow-up with primary care provider as needed Take all medications as prescribed Assessment: See discharge summary
--- NOTE | 2023-04-28 15:39 | PC.NURSE ---
Pt discharged to home in afternoon. 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 Pt able to teach back meds and follow up. Right chest port de-accessed prior to discharge without difficulty, gauze dressing applied with tegaderm. Off unit in wheelchair.
== END 2023-04-28 15:38 | disposition home health service (06) | DRG 808 ==
LOC: HO.EDOVER 14:02 → HO.IMC 14:31
PROVIDERS: Student in an Organized Health Care Education/Training Program; Admitting Provider Physician Assistant; PCP Family Medicine; Visit Provider Nurse Practitioner Acute Care
DX: D61.810 Antineoplastic chemotherapy induced pancytopenia (principal); E43 Unspecified severe protein-calorie malnutrition; C83.39 Diffuse large B-cell lymphoma, extranodal and solid organ sites; K92.2 Gastrointestinal hemorrhage, unspecified; Z68.1 Body mass index [BMI] 19.9 or less, adult; D62 Acute posthemorrhagic anemia; L89.152 Pressure ulcer of sacral region, stage 2; J45.20 Mild intermittent asthma, uncomplicated; K21.9 Gastro-esophageal reflux disease without esophagitis; R50.81 Fever presenting with conditions classified elsewhere; I95.9 Hypotension, unspecified; T45.1X5A Adverse effect of antineoplastic and immunosuppressive drugs, initial encounter; Z87.891 Personal history of nicotine dependence; Z79.899 Other long term (current) drug therapy
CPT/HCPCS: 36415; 71045; 80048; 81003; 83605; 83735; 85007; 85025; 85027; 86850; 86900; 86901; 87040; 92950; 93970; 97162; J0692; J1642; P9073

== ENCOUNTER → 2023-04-24 13:52 | Outpatient (BNV) | payer OTHER, SELFPAY | PROVIDERS: Admitting Provider Physician Assistant; Visit Provider Internal Medicine | DX: D61.810 Antineoplastic chemotherapy induced pancytopenia (principal); D70.9 Neutropenia, unspecified | CPT/HCPCS: 99222; 99231 ==

== ENCOUNTER → 2023-04-24 13:52 | Outpatient (BNV) | payer OTHER, SELFPAY | PROVIDERS: Admitting Provider Physician Assistant; Visit Provider Internal Medicine Gastroenterology | DX: K63.9 Disease of intestine, unspecified (principal); D61.818 Other pancytopenia; C85.99 Non-Hodgkin lymphoma, unspecified, extranodal and solid organ sites | CPT/HCPCS: 99223 ==

== ENCOUNTER → 2023-04-24 13:52 | Outpatient (BNV) | payer OTHER, SELFPAY | PROVIDERS: Admitting Provider Physician Assistant; Visit Provider Physician Assistant | DX: D70.9 Neutropenia, unspecified (principal); R50.81 Fever presenting with conditions classified elsewhere; D69.6 Thrombocytopenia, unspecified | CPT/HCPCS: 99223; 99232; 99239 ==

== ENCOUNTER 2023-05-22 07:55 | Outpatient (REF) | payer OTHER, SELFPAY ==
--- NOTE | ~2023-05-22 | PE_ITS ---
EXAMINATION: Fluorine-18 FDG PET/CT Scan CLINICAL INDICATION: Subsequent treatment management. 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 PROCEDURE: 59 minutes following the intravenous administration of 15.8 mCi of fluorine 18 FDG, images from the base of the skull to the mid thighs were obtained using a combined PET/CT scanner with CT scan based attenuation correction. No oral contrast was administered. No intravenous contrast was administered. Transverse, coronal, sagittal, and volume reconstruction projections were obtained. The patient's blood glucose as determined by a finger stick, was 111 mg/dl immediately prior to injection. Total CT exam dose-length product 255.26 mGy-cm * These CT images were obtained using dose optimization techniques as appropriate, variously including the following: Automated exposure control * Adjustment of mA and/or kV according to patient size (this includes techniques or standardized protocols for targeted exams where dose is matched to indication/reason for exam; i.e. extremities or head) * Use of iterative reconstruction technique COMPARISON: The prior PET CT scan dated 01/16/2023 is available for comparison. CT GI bleed study dated 01/29/2023 is also available for comparison. FINDINGS: (Slice numbers described in this report are numbered superiorly to inferiorly with slice #1 in the head) NECK AND VISUALIZED HEAD: No foci of abnormal FDG activity are noted. The distribution of FDG activity is physiological. There is no cervical lymphadenopathy. A moderately intense focus of increased FDG activity in the left tonsillar fossa present on the 01/16/[address] scan is not present on the current study. THORAX: There are no foci of abnormal FDG activity. No pulmonary nodules are visualized. There is no pleural or pericardial fluid or pneumothorax. There is no mediastinal, supraclavicular, or axillary lymphadenopathy. A right chest port and associated internal jugular catheter terminating in the superior vena cava is noted. ABDOMEN AND PELVIS: There is mildly increased FDG activity in the greater curvature of the stomach and a mild diffuse pattern that shows SUVmax 4.9, slice 111/223. No definite CT abnormality is present, but in the absence of oral an intravenous contrast significant gastric wall thickening at this site cannot be ruled out. In this region on the 01/16/2023 PET/CT scan there was intense abnormal FDG activity, SUVmax 24.1, slice 109/223 of the prior study, with this specific region that is most intense on the current study measured in retrospect on the prior study. Very intense FDG activity on the prior study more distally in the stomach and in the lesser curvature is now not present, with more distal FDG activity in the stomach now showing SUVmax 4.3, slice 107/223.s intensely FDG avid mass is adjacent to the distal lesser curvature of the stomach in the gastrohepatic ligament region present on the prior study measuring SUVmax of 45.4, there is now no abnormal FDG activity. Mild FDG activity is present throughout the gastrointestinal tract now without a suspicious focal component. However in the region of a focus of intensely increased FDG activity in the inferior right colon superior to the cecum there is now mild FDG activity with a more diffuse pattern showing SUVmax 5.3, slice 149/223 versus SUVmax 11.2 in the focus at this site on the prior study. There is diverticulosis without evidence of diverticulitis. The hollow viscera are otherwise unremarkable. The liver and spleen are unremarkable. The gallbladder has been resected and multiple metallic surgical clips are present in the gallbladder bed. The kidneys, adrenal glands and pancreas are unremarkable. No retroperitoneal, mesenteric, pelvic or inguinal lymphadenopathy is now present. The pelvic organs are unremarkable. MUSCULOSKELETAL: There is intense diffusely increased FDG activity throughout the axial skeleton and proximal extremities, much more intense than the mild activity present on the 01/16/2022 study and most likely due to bone marrow stimulating chemotherapy such as Neulasta. There are no foci of more intensely increased FDG activity. There are degenerative changes in the spine but no suspicious sclerotic or lytic lesions are visualized. A mild thoracolumbar scoliosis is present with lumbar convexity to the left. VASCULAR: Vascular calcifications including coronary are noted. Reference SUVmax Levels: Mediastinal Blood Pool: 2.3, Slice 70/223 Liver: 3.1, Slice 104/223 PET/PET CT fusion skull to thigh IMPRESSION: 1. There is mild FDG activity present in the greater curvature of the stomach in the region of intensely increased FDG activity present on the 01/16/2023 PET/CT. This is nonspecific, but because it is in the region of intensely increased FDG activity on the prior study, it is suspicious for residual lymphoma. Most of the other intensely FDG avid foci present on 01/16/2023 are completely resolved with the exception of activity in the right colon region which persists. The latter could be residual malignancy or physiological bowel uptake. Using the 5 point Deauville scale, this patient would be classified as a Deauville score of 4. 2. Diffuse osseous FDG activity is likely due to bone marrow stimulating chemotherapy such as Neulasta. Clinical correlation is recommended. 3. No additional abnormalities suspicious for other metastatic or malignant lesions are noted. 4. Vascular calcifications including coronary. Reference: Deauville Score: Score 1: No uptake above the background Score 2: Uptake not greater than mediastinum Score 3: Uptake greater than mediastinum but less than liver Score 4: Uptake moderately increased compared to the liver Score 5: Uptake markedly increased compared to the liver or any new lesion Score X: Foci of uptake unlikely to be related to lymphoma
== END 2023-05-22 07:56 | disposition home or self-care (01) ==
LOC: HO.PET 07:55
PROVIDERS: PCP Family Medicine; Visit Provider Internal Medicine
DX: Z13.89 Encounter for screening for other disorder (principal)

== ENCOUNTER → 2023-06-27 09:44 | Day surgery (SDC) | payer OTHER, SELFPAY ==
[2023-06-22 14:26] VITALS: BMI 19.3
[2023-06-27 11:02] VITALS: BP 118/67; PULSE 78; RESP 18; TEMP 36.6; O2SAT 100; BMI 19.9
[2023-06-27] MEDS: Sodium Phosphate,Mono-Dibasic 133 ML ENEMA PR ×2 (11:34→11:37)
--- NOTE | 2023-06-27 12:23 | PC.NURSE ---
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 and cler liquids. fleets enema pr x1 with stool return. fleets enema pr x2 with formed stool return. Dr. Garza notified & case cancelled by dr. garza. no iv started, assisted pt with redressing and ambulated with walker to waiting room. pt with phone in hand to call for ride.
== END ==
PROVIDERS: PCP Family Medicine; Visit Provider Internal Medicine Gastroenterology
DX: D64.9 Anemia, unspecified (principal); Z53.8 Procedure and treatment not carried out for other reasons

== ENCOUNTER 2023-09-05 12:17 | Outpatient (AMB) | payer OTHER, SELFPAY ==
--- NOTE | 2023-09-05 12:19 | MHC.OFFVIS ---
Vital Signs 09/05/23 12:26 Height 5 ft Weight 106 lb BMI 20.7 BP 86/50 L Blood Pressure Location Lt brachial Position Sitting Pulse 78 Intake Visit Reasons: MED RECONCILE Intake Note: Patient is seen in office for medication reconcile. Pt c/o: denies any concerns feeling better per pt Key Punch Teacher Required: Yes Key Punch Teacher Language: Croatian Information Interpreted: non-clinical & clinical Accompanied by: Self / Same As Patient Allergies black pepper Allergy (Intermediate, Verified 09/05/23 12:30) Rash codeine [CODEINE] Allergy (Intermediate, Verified 09/05/23 12:30) RASH ibuprofen [From MOTRIN] Allergy (Intermediate, Verified 09/05/23 12:30) RASH Penicillins [PENICILLINS] Allergy (Intermediate, Verified 09/05/23 12:30) RASH pineapple Allergy (Intermediate, Verified 09/05/23 12:30) Rash HPI Comments Details: This is a 77y.o F with 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 To Recap: pt was seen in hospital by GI for abd pain, N,V, unintentional weight loss x [address] scan suggestive of greater curvature mass with lymphadenopathy. EGD 11/27/22 (Dr Caldwell): Stomach: A large polypoidal mass with central ulceration in the gastric body along the greater curvature extending from 36 to 58 cms and covering 75% of the gastric circumference. Moderate diffuse gastric erythema. Biopsies were obtained from the antrum to check for H pylori. Path: A. Stomach, antrum, biopsy: Antral-type mucosa within normal limits; no Helicobacter organisms seen. B. Stomach, mass, biopsy: Diffuse Large B-cell Lymphoma, non-germinal center type. Staging PET 01/16/23: ABDOMEN AND PELVIS: The stomach is abnormal. Marked mural thickening associated with intense FDG avidity is noted at the fundus and body of the stomach extending along both the greater as well as the lesser curvatures. The focus of dominant mural thickening measures approximately 2.6 cm with SUV max of 20.7 (104/223). There is no evidence of any gastric obstruction present. The pylorus of the stomach appear unremarkable. Corresponding to previously documented lobulated solid-appearing soft tissue confluent masses along the lesser curvature of the stomach in the region of the gastrohepatic ligament and adjacent part of the common hepatic artery show intense tracer avidity. The dominant solid mass seen at the level of the common hepatic artery measures approximately 4.2 x 2.1 cm with SUV max of 45.4 (115/223), most consistent with extensive local/regional lymph node disease extension. There are no additional tracer avid lymph nodes identified within the retroperitoneum or mesentery or pelvis or groin. Specific note is made of intense focal FDG avidity associated with mural thickening involving cecum and proximal ascending colon with SUV max of 11.2 (150/223), may also represent additional sites of disease involvement. Follow-up direct visualization/colonoscopy may be considered for further confirmation, if clinically appropriate. 03/09/23: s/p x3 cycles of felix-R-CHP. Course complicated by syncopal episode 2 weeks ago in the setting of pancytopenia. This was initially attributed to BM suppression from chemo however counts cont to decline this week as well. Pt received x2u PRBC transfusion on 03/07 after Hb dropped to 6.8. Currently, main CC is loss of appetite with early satiety, nausea and regurgitation. Reports has not been able to eat anything more than a couple of sips or bites or it comes back up. From chart review appears to have had weight loss of 20lbs in just the last 2 months. Last abd imaging is from Jan and at that time, no evidence of obstruction. 09/05/23: Seen in follow up. Was unable to undergo colo 04/2023 to investigate abnormal PET scan due to severe pancytopenia. Since then has completed chemoXRT. Last XRT session 08/10/23 (Mignon). Jackson of disease in stomach markedly diminished based on most recent PET in May 2023 but R colon cont to light up. There is mild FDG activity present in the greater curvature of the stomach in the region of intensely increased FDG activity present on the 01/16/2023 PET/CT. This is nonspecific, but because it is in the region of intensely increased FDG activity on the prior study, it is suspicious for residual lymphoma. Most of the other intensely FDG avid foci present on 01/16/2023 are completely resolved with the exception of activity in the right colon region which persists. The latter could be residual malignancy or physiological bowel uptake. Using the 5 point Deauville scale, this patient would be classified as a Deauville score of 4. 2. Diffuse osseous FDG activity is likely due to bone marrow stimulating chemotherapy such as Neulasta. Clinical correlation is recommended. 3. No additional abnormalities suspicious for other metastatic or malignant lesions are noted. 4. Vascular calcifications including coronary. [facility] Medical History Gastric lymphoma Orthostasis Moderate protein malnutrition Lymphoma malignant, large cell Anemia Abnormal CT of the abdomen Stomach cancer Kidney disease Asthma Surgical History History of esophagogastroduodenoscopy (EGD) Hx of colonoscopy Tubal ligation status History of bladder surgery History of cholecystectomy Social History Household Members: Family Housing: Apartment Do you presently have visiting nurse or other home services: Yes Alcohol intake: never Patient Tobacco Use Status: Former Tobacco user Tobacco use type: Cigarette e-Cigarette/Vaping Use: Never Used Second Hand Smoke Exposure: No Advance Directives Date on File: 02/12/20 service: No 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al status: disabled 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: r handed Review of Systems Const All systems reviewed & are unremarkable except as noted in HPI and below Physical Exam Vital Signs: Last Vital Signs Pulse 78 09/05/23 12:26 BP 86/50 L 09/05/23 12:26 BMI result Body Mass Index 20.7 Frail appearing NAD Nonicteric Abd soft nontender Assessment & Plan Assessment & Plan (1) Gastric lymphoma: Code(s): C85.99 - Non-Hodgkin lymphoma, unspecified, extranodal and solid organ sites Category: Medical (2) Gastric mass: Code(s): K31.89 - Other diseases of stomach and duodenum Category: Medical (3) Colon wall thickening: Code(s): K63.9 - Disease of intestine, unspecified Category: Medical Plan Jackson of disease diminished significantly based on recent PET CT May 2023. Pt also reports better appetite and no N/V. Weight has improved from 89lbs when I last saw her to 106 lbs today. Anemia improving. Will book her for colo to investigate abnormal PET scan findings in R colon. An EGD will also booked at the same time for ? residual lymphoma as mild FDG activity noted in the same area of the stomach as 01/2023 scan. Plan: - EGD/colo to be booked - PEG instructions reviewed - Will recommend CBC 3-5 days before scopes to ensure counts are permissive from procedure standpoint (mild leukopenia and thrombocytopenia noted on most recent CBC) - Follow up after scopes Medications: New peg 3350-electrolytes 236-22.74-6.74 -5.86 gram (Golytely) as per split prep instructions, until fecal effluent is clear 240 mL PO Q10M 4,000 mL 0RF colonoscopy Coding Level of Care Code Est Pt Level 4 (35265) Diagnoses Gastric lymphoma C85.99 Gastric mass K31.89 Colon wall thickening K63.9
[2023-09-05 12:26] VITALS: BP 86/50; PULSE 78; BMI 20.7
== END 2023-09-05 13:46 | disposition home or self-care (01) ==
PROVIDERS: PCP Family Medicine; Visit Provider Internal Medicine
DX: C85.99 Non-Hodgkin lymphoma, unspecified, extranodal and solid organ sites (principal); K31.89 Other diseases of stomach and duodenum; K63.9 Disease of intestine, unspecified
CPT/HCPCS: 99214

== ENCOUNTER → 2023-09-05 12:17 | Outpatient (BNVA) | payer OTHER, SELFPAY | PROVIDERS: PCP Family Medicine; Visit Provider Internal Medicine | DX: C85.99 Non-Hodgkin lymphoma, unspecified, extranodal and solid organ sites (principal); K31.89 Other diseases of stomach and duodenum; K63.9 Disease of intestine, unspecified; Z51.81 Encounter for therapeutic drug level monitoring | CPT/HCPCS: 99212 ==

== ENCOUNTER 2023-12-21 14:15 | Outpatient (AMB) | payer OTHER, SELFPAY ==
--- NOTE | 2023-12-21 14:30 | A.OFFVIS_ITS ---
Vital Signs 12/21/23 14:37 Height 5 ft Weight 108 lb 14.534 oz BMI 21.3 BP 144/72 H Blood Pressure Location Rt brachial Position Sitting Pulse 69 Pulse Source Pulse Oximeter Pulse Oximetry (%) 94 Oxygen Delivery Method Room Air Intake Visit Reasons: Follow up Intake Note: Pt presents to the office today for a follow up. Pt states she is feeling okay. Pt denies any N/V. 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 To Recap: pt was seen in hospital by GI for abd pain, N,V, unintentional weight loss x [address] scan suggestive of greater curvature mass with lymphadenopathy. EGD 11/27/22 (Dr Caldwell): Stomach: A large polypoidal mass with central ulceration in the gastric body along the greater curvature extending from 36 to 58 cms and covering 75% of the gastric circumference. Moderate diffuse gastric erythema. Biopsies were obtained from the antrum to check for H pylori. Path: A. Stomach, antrum, biopsy: Antral-type mucosa within normal limits; no Helicobacter organisms seen. B. Stomach, mass, biopsy: Diffuse Large B-cell Lymphoma, non-germinal center type. Staging PET 01/16/23: ABDOMEN AND PELVIS: The stomach is abnormal. Marked mural thickening associated with intense FDG avidity is noted at the fundus and body of the stomach extending along both the greater as well as the lesser curvatures. The focus of dominant mural thickening measures approximately 2.6 cm with SUV max of 20.7 (104/223). There is no evidence of any gastric obstruction present. The pylorus of the stomach appear unremarkable. Corresponding to previously documented lobulated solid-appearing soft tissue confluent masses along the lesser curvature of the stomach in the region of the gastrohepatic ligament and adjacent part of the common hepatic artery show intense tracer avidity. The dominant solid mass seen at the level of the common hepatic artery measures approximately 4.2 x 2.1 cm with SUV max of 45.4 (115/223), most consistent with extensive local/regional lymph node disease extension. There are no additional tracer avid lymph nodes identified within the retroperitoneum or mesentery or pelvis or groin. Specific note is made of intense focal FDG avidity associated with mural thickening involving cecum and proximal ascending colon with SUV max of 11.2 (150/223), may also represent additional sites of disease involvement. Follow-up direct visualization/colonoscopy may be considered for further confirmation, if clinically appropriate. 03/09/23: s/p x3 cycles of felix-R-CHP. Course complicated by syncopal episode 2 weeks ago in the setting of pancytopenia. This was initially attributed to BM suppression from chemo however counts cont to decline this week as well. Pt received x2u PRBC transfusion on 03/07 after Hb dropped to 6.8. Currently, main CC is loss of appetite with early satiety, nausea and regurgitation. Reports has not been able to eat anything more than a couple of sips or bites or it comes back up. From chart review appears to have had weight loss of 20lbs in just the last 2 months. Last abd imaging is from Jan and at that time, no evidence of obstruction. 09/05/23: Seen in follow up. Was unable to undergo colo 04/2023 to investigate abnormal PET scan due to severe pancytopenia. Since then has completed chemoXRT. Last XRT session 08/10/23 (Mignon). Carbon of disease in stomach markedly diminished based on most recent PET in May 2023 but R colon cont to light up. There is mild FDG activity present in the greater curvature of the stomach in the region of intensely increased FDG activity present on the 01/16/2023 PET/CT. This is nonspecific, but because it is in the region of intensely increased FDG activity on the prior study, it is suspicious for residual lymphoma. Most of the other intensely FDG avid foci present on 01/16/2023 are completely resolved with the exception of activity in the right colon region which persists. The latter could be residual malignancy or physiological bowel uptake. Using the 5 point Deauville scale, this patient would be classified as a Deauville score of 4. 2. Diffuse osseous FDG activity is likely due to bone marrow stimulating chemotherapy such as Neulasta. Clinical correlation is recommended. 3. No additional abnormalities suspicious for other metastatic or malignant lesions are noted. 4. Vascular calcifications including coronary. 12/21/23: Unfortunately pt thought she had procedures today so had prepped. No GI issues today. Feels better than 3 months ago. Needs PEG prep refilled. [facility] Medical History Gastric lymphoma Orthostasis Moderate protein malnutrition Lymphoma malignant, large cell Anemia Abnormal CT of the abdomen Stomach cancer Kidney disease Asthma Surgical History History of esophagogastroduodenoscopy (EGD) Hx of colonoscopy Tubal ligation status History of bladder surgery History of cholecystectomy Social History Household Members: Family Housing: Apartment Do you presently have visiting nurse or other home services: Yes Alcohol intake: never Patient Tobacco Use Status: Former Tobacco user Tobacco use type: Cigarette e-Cigarette/Vaping Use: Never Used Second Hand Smoke Exposure: No Advance Directives Date on File: 02/12/20 service: No 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al status: disabled 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: r handed Review of Systems Const All systems reviewed & are unremarkable except as noted in HPI and below Physical Exam Vital Signs: Last Vital Signs Pulse 69 12/21/23 14:37 BP 144/72 H 12/21/23 14:37 Pulse Ox 94 12/21/23 14:37 Oxygen Delivery Method Room Air 12/21/23 14:37 BMI result Body Mass Index 21.3 Frail appearing NAD Nonicteric Abd soft nontender Assessment & Plan Assessment & Plan (1) Gastric lymphoma: Code(s): C85.99 - Non-Hodgkin lymphoma, unspecified, extranodal and solid organ sites Category: Medical (2) Gastric mass: Code(s): K31.89 - Other diseases of stomach and duodenum Category: Medical (3) Colon wall thickening: Code(s): K63.9 - Disease of intestine, unspecified Category: Medical Plan Carbon of disease diminished significantly based on recent PET CT May 2023. Pt also reports better appetite and no N/V. Weight curve improving. EGD/colo booked for 01/21. PEG prep refilled. Pt is aware to go to lab a few days before procedure to ensure counts are perm issive from procedure standpoint and if she needs any transfusions prior to EGD/colo. H/H dropped again on November CBC. Follow up after scopes Medications: New peg 3350-electrolytes 236-22.74-6.74 -5.86 gram (Golytely) as per split prep instructions, until fecal effluent is clear 240 mL PO Q10M 4,000 mL 0RF colonoscopy Coding Level of Care Code Est Pt Level 3 (86419) Diagnoses Gastric lymphoma C85.99 Gastric mass K31.89 Colon wall thickening K63.9
[2023-12-21 14:37] VITALS: BP 144/72; PULSE 69; O2SAT 94; BMI 21.3
== END 2023-12-21 15:40 | disposition home or self-care (01) ==
PROVIDERS: PCP Family Medicine; Visit Provider Internal Medicine
DX: C85.99 Non-Hodgkin lymphoma, unspecified, extranodal and solid organ sites (principal); K31.89 Other diseases of stomach and duodenum; K63.9 Disease of intestine, unspecified
CPT/HCPCS: 99213

== ENCOUNTER → 2023-12-21 14:15 | Outpatient (BNVA) | payer OTHER, SELFPAY | PROVIDERS: PCP Family Medicine; Visit Provider Internal Medicine | DX: K31.89 Other diseases of stomach and duodenum (principal); K63.9 Disease of intestine, unspecified; C85.99 Non-Hodgkin lymphoma, unspecified, extranodal and solid organ sites; R63.4 Abnormal weight loss | CPT/HCPCS: 99212 ==

== ENCOUNTER 2024-01-22 06:31 | Day surgery (SDC) | payer OTHER, SELFPAY ==
[2024-01-18 15:07] VITALS: BMI 21.3
--- NOTE | 2024-01-21 12:23 | HO.ANESPROP2 ---
HPI - Anesthesia Eval Consult details Narrative: 78yo F for Upper Endoscopy and Colonoscopy PMFSH Active Problems Active Problems: All Active Problems Severe thrombocytopenia (Acute) Severe protein-calorie malnutrition (Acute) Hypophosphatemia (Acute) Hypomagnesemia (Acute) UTI (urinary tract infection) (Acute) Chronic abdominal pain (Acute) Weight loss (Acute) Nausea & vomiting (Acute) Anemia (Acute) Hypokalemia (Acute) Chemotherapy-induced thrombocytopenia (Acute) Anemia associated with chemotherapy (Acute) Gastric lymphoma (Acute) Gastric lymphoma (Acute) Gastric mass (Acute) Trochanteric bursitis, right hip (Acute) Osteoarthritis of right knee (Acute) Iliotibial band syndrome of right side (Acute) BPPV (benign paroxysmal positional vertigo) (Acute) Moderate protein malnutrition (Acute) Orthostasis (Acute) Kidney disease (Acute) Asthma (Acute) Past Medical History Medical History History of blood transfusion Gastric lymphoma Orthostasis Moderate protein malnutrition Lymphoma malignant, large cell Anemia Abnormal CT of the abdomen Stomach cancer Kidney disease Asthma Family History Family history of problems with anesthesia: No Surgical History Surgical History History of esophagogastroduodenoscopy (EGD) Hx of colonoscopy Tubal ligation status History of bladder surgery History of cholecystectomy History of Problems with Anesthesia: No Social History Social History Household Members: Family Housing: Apartment Do you presently have visiting nurse or other home services: Yes Alcohol intake: never Patient Tobacco Use Status: Former Tobacco user Tobacco use type: Cigarette e-Cigarette/Vaping Use: Never Used Second Hand Smoke Exposure: No Advance Directives Date on File: 02/12/20 service: No 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al status: disabled 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: r handed Meds Allergies Allergy/AdvReac Type Severity Reaction Status Date / Time black pepper Allergy Intermediate Rash Verified 12/21/23 14:39 codeine [CODEINE] Allergy Intermediate RASH Verified 12/21/23 14:39 ibuprofen [From MOTRIN] Allergy Intermediate RASH Verified 12/21/23 14:39 Penicillins [PENICILLINS] Allergy Intermediate RASH Verified 12/21/23 14:39 pineapple Allergy Intermediate Rash Verified 12/21/23 14:39 Home Medications ?Medication ?Instructions ?Recorded ?Confirmed ?Last Taken ?Type albuterol sulfate 90 mcg/actuation 2 puff inhalation Q4H PRN 10/10/21 01/22/24 Unknown History aerosol inhaler Shortness Of Breath Or Wheezing atorvastatin 80 mg tablet 80 mg PO QPM 10/10/21 01/22/24 04/23/23 History loratadine 10 mg tablet 10 mg PO DAILY PRN Allergic 10/10/21 01/22/24 Unknown History Symptoms fluticasone propionate 50 1 spray intranasal BID PRN Allergy 11/25/22 01/22/24 04/23/23 History mcg/actuation nasal Symptoms spray,suspension cyanocobalamin (vitamin B-12) 1,000 mcg PO DAILY 03/09/23 01/22/24 04/23/23 History 1,000 mcg tablet umeclidinium 62.5 mcg/actuation 1 inh inhalation DAILY 03/09/23 01/22/24 04/23/23 History blister powder for inhalation (Incruse Ellipta) Exam Height,Weight and Vital Signs: Height 5 ft Weight 49.385 kg Pertinent Lab Results Pertinent Lab Results: Laboratory Tests 11/23/23 01/18/24 10:50 14:35 WBC 2.6 L Hgb 9.3 L Hct 26.6 L Plt Count 122 L Sodium 141 Potassium 4.1 Chloride 109 H Carbon Dioxide 24 BUN 31 H D Creatinine 1.23 Assessment and Plan Assessment Anesthesia Assessment: Chart Reviewed Final Anesthetic Review Family History of Problems with Anesthesia: No History of Problems with Anesthesia: No
--- NOTE | 2024-01-22 06:21 | MHC.SHP ---
Pre-Procedural Eval Section A - 24 Hr Update-Section A only Date of Service: 01/22/24 Section B - Complete if H&P > 30 days Chief Complaint: Disease of intestine,Non-Hodgkin lymphoma, Relevant Family History (Specify if Yes): No Relevant Social History: None Present Medications: see Short Stay Collaborative assessment Medical History: Significant History (History of blood transfusion Gastric lymphoma Orthostasis Moderate protein malnutrition Lymphoma malignant, large cell Anemia Abnormal CT of the abdomen Stomach cancer Kidney disease Asthma) History of Previous Operations: Relevant previous surgery/procedure and date(s) ( History of esophagogastroduodenoscopy (EGD) Hx of colonoscopy Tubal ligation status History of bladder surgery History of cholecystectomy) Allergies: Allergies Allergy/AdvReac Type Severity Reaction Status Date / Time black pepper Allergy Intermediate Rash Verified 12/21/23 14:39 codeine [CODEINE] Allergy Intermediate RASH Verified 12/21/23 14:39 ibuprofen [From MOTRIN] Allergy Intermediate RASH Verified 12/21/23 14:39 Penicillins [PENICILLINS] Allergy Intermediate RASH Verified 12/21/23 14:39 pineapple Allergy Intermediate Rash Verified 12/21/23 14:39 Review of Systems Sugical H&P ROS: Negative: Constitution, Cardiovascular, Respiratory, Neurological, Psychiatric, Hem-Onc, Allergic/Immunologic, Gastrointestinal, Genitourinary, Musculoskeletal, Integumentary, Endocrine and Eyes/Ears/Nose/Throat Exam Surgical H&P Exam: Normal: HEENT, Normal: Heart, Normal: Lungs, Normal: Extremities, Normal: Abdomen, Normal: Skin and Normal: Neurological Plan Diagnosis/Plan: Unchanged I have reviewed the history and physical and performed a pertinent physical examination on my patient. No changes have occurred unless specified. Time Spent With Patient Time: Total time managing care of this patient today ____ minutes.
[2024-01-22 06:35] VITALS: BP 123/57; PULSE 80; RESP 1; TEMP 36.9; O2SAT 97; BMI 20.9
[2024-01-22] MEDS: Lactated Ringers 1,000 ML 100 ML IVCONT (07:01)
--- NOTE | 2024-01-22 07:39 | P.OPN-COLO_ITS ---
Colonoscopy Operative Note Operative Note Date of Service: 01/22/24 Narrative: Operative Information Procedure Description: EGD, Colonoscopy Indication: hx of intestinal lymphoma Anesthesia: MAC FLEXIBLE TRANSORAL UPPER GASTROINTESTINAL ENDOSCOPY AND COLONOSCOPY PROCEDURE NOTE UPPER ENDOSCOPY Consent: Indications for the procedure and potential complications of bleeding, perforation, reaction to medications and missed diagnosis were discussed with the patient and informed consent was obtained. Instrument: Olympus GIF H 190 J mid size upper endoscope Monitoring: Vital signs and clinical assessment, continuous EKG monitoring, Pulse oximetry, Carbon Dioxide monitoring and blood pressure monitoring were done throughout the procedure. Procedure: The patient was placed in the left lateral decubitis position and pre-procedure medications were administered and a bite block was placed. The endoscope was inserted into the mouth and advanced under direct vision to the third part of duodenum. A careful inspection was made as the upper endoscope was withdrawn including a retroflexed examination of the proximal stomach; Findings and interventions are described below. Findings: Larynx:normal Esophagus: GE junction at 38 cm, diaphragm hiatus at 38 cm, normal mucosa Stomach: GAVE noted at antrum, in mid body a small crateriform ulcer with heaped edges noted, bx taken. Bx also taken from antrum lesser curve and greater curve. Grade 2 flap valve on retroflexed examination of the cardia. Duodenum: Normal bulb and descending duodenum, bx taken Intervention: Biopsies as noted above, COLONOSCOPY Instrument: Olympus variable stiffness pediatric scope 190L Colonoscopy Monitoring: Vital signs and clinical assessment, continuous EKG monitoring, Pulse oximetry, Carbon Dioxide monitoring and blood pressure monitoring were done throughout the procedure. Colon withdrawal time was 12 minutes. Procedure: The patient was placed in the left lateral decubitis position and pre-procedure medications were administered. After a digital rectal examination of the ano-rectum, the video colonoscope was inserted into the rectum and advanced through the colon to the cecum/TI. The colonoscope was slowly withdrawn in a retrograde panoramic fashion and the colon mucosa was carefully examined including a retroflexed view of the rectum. Findings and interventions are described below. Procedure Difficulty:moderate Findings: Terminal Ileum-normal, bx taken Cecum:normal, bx taken Ascending Colon: random bx taken, also 4-5 mm sessile polyp removed with cold forceps Transverse Colon -normal Descending Colon:normal, bx taken Sigmoid Colon: moderate diverticulosis Rectum: Retroflexion with small internal hemorrhoids, grade I Anorectum - normal Colon preparation: [place] Bowel Preparation Scale Right colon; 1-2 Transverse colon: 2 Left colon; 2 (0 = Unprepared colon segment with mucosa not seen due to solid stool that cannot be cleared. 1 = Portion of mucosa of the colon segment seen, but other areas of the colon segment not well seen due to staining, residual stool and/or opaque liquid. 2 = Minor amount of residual staining, small fragments of stool and/or opaque liquid, but mucosa of colon segment seen well. 3 = Entire mucosa of colon segment seen well with no residual staining, small fragments of stool or opaque liquid) Impression and Post Procedure Diagnosis: Endoscopy Findings: GAVE gastric ulcer Colonoscopy Findings: diverticulosis colon polyp internal hemorrhoids Plan: Await Pathology results Repeat Colonoscopy in 5 years if health allows or earlier if clinically indicated High fiber diet leaflet avoid straining at stool, epsom salts and sitz bath, anusol supps or cream Above findings were reviewed with the patient and relevant handouts were provided if indicated.
--- NOTE | 2024-01-22 07:49 | P.CONAN_ITS ---
[facility] Active Problems Active Problems: All Active Problems Severe thrombocytopenia (Acute) Severe protein-calorie malnutrition (Acute) Hypophosphatemia (Acute) Hypomagnesemia (Acute) UTI (urinary tract infection) (Acute) Chronic abdominal pain (Acute) Weight loss (Acute) Nausea & vomiting (Acute) Anemia (Acute) Hypokalemia (Acute) Chemotherapy-induced thrombocytopenia (Acute) Anemia associated with chemotherapy (Acute) Gastric lymphoma (Acute) Gastric lymphoma (Acute) Gastric mass (Acute) Trochanteric bursitis, right hip (Acute) Osteoarthritis of right knee (Acute) Iliotibial band syndrome of right side (Acute) BPPV (benign paroxysmal positional vertigo) (Acute) Moderate protein malnutrition (Acute) Orthostasis (Acute) Kidney disease (Acute) Asthma (Acute) Past Medical History Medical History History of blood transfusion Gastric lymphoma Orthostasis Moderate protein malnutrition Lymphoma malignant, large cell Anemia Abnormal CT of the abdomen Stomach cancer Kidney disease Asthma Functional capacity: independent ambulation Patient : No Family History Family history of problems with anesthesia: No Surgical History Surgical History History of esophagogastroduodenoscopy (EGD) Hx of colonoscopy Tubal ligation status History of bladder surgery History of cholecystectomy History of Problems with Anesthesia: No Social History Social History Household Members: Family Housing: Apartment Do you presently have visiting nurse or other home services: Yes Alcohol intake: never Patient Tobacco Use Status: Former Tobacco user Tobacco use type: Cigarette e-Cigarette/Vaping Use: Never Used Second Hand Smoke Exposure: No Have you been hit, kicked, punched, or otherwise hurt by someone within the past year? If so, by whom?: No Are you DNR?: No Advance Directives: No Advance Directives Information Provided: Yes Advance Directives Date on File: 02/12/20 Recently lost weight without trying: No Nutrition Risks: No Nutritional Risk service: No 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al status: disabled 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: r [employer] Meds Allergies Allergy/AdvReac Type Severity Reaction Status Date / Time black pepper Allergy Intermediate Rash Verified 12/21/23 14:39 codeine [CODEINE] Allergy Intermediate RASH Verified 12/21/23 14:39 ibuprofen [From MOTRIN] Allergy Intermediate RASH Verified 12/21/23 14:39 Penicillins [PENICILLINS] Allergy Intermediate RASH Verified 12/21/23 14:39 pineapple Allergy Intermediate Rash Verified 12/21/23 14:39 Active Medications: Current Medications Albuterol Sulfate (Albuterol Sulfate (0.083%) 2.5 Mg/3 Ml Vial.Neb) 2.5 mg INHALE ONCE PRN PRN Reason: Shortness of Breath/Wheezing Lactated Ringer's (Lr) 1,000 mls @ 100 mls/hr IVCONT .Q10H YOMAIRA Last Admin: 01/22/24 07:01 Dose: 100 mls/hr Home Medications ?Medication ?Instructions ?Recorded ?Confirmed ?Last Taken ?Type albuterol sulfate 90 mcg/actuation 2 puff inhalation Q4H PRN 10/10/21 01/22/24 Unknown History aerosol inhaler Shortness Of Breath Or Wheezing atorvastatin 80 mg tablet 80 mg PO QPM 10/10/21 01/22/24 04/23/23 History loratadine 10 mg tablet 10 mg PO DAILY PRN Allergic 10/10/21 01/22/24 Unknown History Symptoms fluticasone propionate 50 1 spray intranasal BID PRN Allergy 11/25/22 01/22/24 04/23/23 History mcg/actuation nasal Symptoms spray,suspension cyanocobalamin (vitamin B-12) 1,000 mcg PO DAILY 03/09/23 01/22/24 04/23/23 History 1,000 mcg tablet umeclidinium 62.5 mcg/actuation 1 inh inhalation DAILY 03/09/23 01/22/24 04/23/23 History blister powder for inhalation (Incruse Ellipta) Exam Height,Weight and Vital Signs: Height 5 ft Weight 48.6 kg Last Vital Signs Temp 98.5 F 01/22/24 06:35 Pulse 80 01/22/24 06:35 Resp 1 L 01/22/24 06:35 BP 123/57 L 01/22/24 06:35 Pulse Ox 97 01/22/24 06:35 O2 Del Method Room Air 01/22/24 06:35 Airway Mallampati Class: II TM Dist: >3cm Neck ROM: Full Denture: Upper and Lower Heart: RRR Lungs: CTA Assessment and Plan Final Anesthetic Review Family History of Problems with Anesthesia: No History of Problems with Anesthesia: No NPO: Yes ASA Class: III Final Preanesthetic Review: Meds/Allgs Chart Reviewed, Consent Obtained/Reviewed and Anes Risks/Benef Reviewed Patient Risk: Intermediate Procedure Risk: Low Anesthetic Plan Anesthetic Plan: MAC: Disposition: Standard PACU
[2024-01-22 08:26] VITALS: BP 97/50; PULSE 72; RESP 16; TEMP 36.2; O2SAT 100
[2024-01-22 08:41] VITALS: BP 125/60; PULSE 70; RESP 16; TEMP 36.4; O2SAT 100
--- NOTE | 2024-01-22 08:46 | HO.POSTANES ---
Post Anesthesia Evaluation Post Anesthesia Evaluation Date of Service: 01/22/24 Vital Signs: Vital Signs Temp Pulse Resp BP Pulse Ox O2 Del Method 01/22/24 08:41 97.5 F 70 16 125/60 100 Room Air 01/22/24 08:26 97.2 F 72 97/50 L 100 Room Air 01/22/24 08:26 97.2 F 72 16 97/50 L 100 Room Air 01/22/24 06:35 98.5 F 80 1 L 123/57 L 97 Room Air Anesthesia: Monitored Mental Status: Awake Pain Control: Satisfactory Nausea/Vomiting: None Hydration: Adequate Anesthesia-Related Issues: No Anes. Related Issues
== END 2024-01-22 09:07 | disposition home or self-care (01) ==
PROVIDERS: PCP Family Medicine; Visit Provider Internal Medicine Gastroenterology
DX: K31.819 Angiodysplasia of stomach and duodenum without bleeding (principal); K31.89 Other diseases of stomach and duodenum; K25.9 Gastric ulcer, unspecified as acute or chronic, without hemorrhage or perforation; K63.5 Polyp of colon; K57.30 Diverticulosis of large intestine without perforation or abscess without bleeding; K64.0 First degree hemorrhoids; D64.9 Anemia, unspecified; C85.99 Non-Hodgkin lymphoma, unspecified, extranodal and solid organ sites; Z85.028 Personal history of other malignant neoplasm of stomach
CPT/HCPCS: 43239; 45380; 88305; 88313; 88342; J2704

== ENCOUNTER → 2024-01-22 06:31 | Outpatient (BNV) | payer OTHER, SELFPAY | PROVIDERS: PCP Family Medicine; Visit Provider Internal Medicine Gastroenterology | DX: K25.9 Gastric ulcer, unspecified as acute or chronic, without hemorrhage or perforation (principal); K31.819 Angiodysplasia of stomach and duodenum without bleeding; K63.5 Polyp of colon; K57.30 Diverticulosis of large intestine without perforation or abscess without bleeding; K64.0 First degree hemorrhoids | CPT/HCPCS: 43239; 45380 ==

== ENCOUNTER 2024-02-11 11:29 | Outpatient (AMB) | payer OTHER, SELFPAY ==
--- NOTE | 2024-02-11 12:01 | MHC.OFFVIS ---
Vital Signs 02/11/24 12:05 Height 5 ft Weight 110 lb 3.698 oz BMI 21.5 BP 116/56 L Blood Pressure Location Lt brachial Position Sitting Pulse 73 Intake Visit Reasons: F/U [place] 01/21 Intake Note: Delmy presents in the office as a follow up colonoscopy. CC: She states that she has some constipation at times and her stomach will feel inflmamed. 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 To Recap: pt was seen in hospital by GI for abd pain, N,V, unintentional weight loss x [address] scan suggestive of greater curvature mass with lymphadenopathy. EGD 11/27/22 (Dr Caldwell): Stomach: A large polypoidal mass with central ulceration in the gastric body along the greater curvature extending from 36 to 58 cms and covering 75% of the gastric circumference. Moderate diffuse gastric erythema. Biopsies were obtained from the antrum to check for H pylori. Path: A. Stomach, antrum, biopsy: Antral-type mucosa within normal limits; no Helicobacter organisms seen. B. Stomach, mass, biopsy: Diffuse Large B-cell Lymphoma, non-germinal center type. Staging PET 01/16/23: ABDOMEN AND PELVIS: The stomach is abnormal. Marked mural thickening associated with intense FDG avidity is noted at the fundus and body of the stomach extending along both the greater as well as the lesser curvatures. The focus of dominant mural thickening measures approximately 2.6 cm with SUV max of 20.7 (104/223). There is no evidence of any gastric obstruction present. The pylorus of the stomach appear unremarkable. Corresponding to previously documented lobulated solid-appearing soft tissue confluent masses along the lesser curvature of the stomach in the region of the gastrohepatic ligament and adjacent part of the common hepatic artery show intense tracer avidity. The dominant solid mass seen at the level of the common hepatic artery measures approximately 4.2 x 2.1 cm with SUV max of 45.4 (115/223), most consistent with extensive local/regional lymph node disease extension. There are no additional tracer avid lymph nodes identified within the retroperitoneum or mesentery or pelvis or groin. Specific note is made of intense focal FDG avidity associated with mural thickening involving cecum and proximal ascending colon with SUV max of 11.2 (150/223), may also represent additional sites of disease involvement. Follow-up direct visualization/colonoscopy may be considered for further confirmation, if clinically appropriate. 03/09/23: s/p x3 cycles of felix-R-CHP. Course complicated by syncopal episode 2 weeks ago in the setting of pancytopenia. This was initially attributed to BM suppression from chemo however counts cont to decline this week as well. Pt received x2u PRBC transfusion on 03/07 after Hb dropped to 6.8. Currently, main CC is loss of appetite with early satiety, nausea and regurgitation. Reports has not been able to eat anything more than a couple of sips or bites or it comes back up. From chart review appears to have had weight loss of 20lbs in just the last 2 months. Last abd imaging is from Jan and at that time, no evidence of obstruction. 09/05/23: Seen in follow up. Was unable to undergo colo 04/2023 to investigate abnormal PET scan due to severe pancytopenia. Since then has completed chemoXRT. Last XRT session 08/10/23 ([place]). [place] of disease in stomach markedly diminished based on most recent PET in May 2023 but R colon cont to light up. There is mild FDG activity present in the greater curvature of the stomach in the region of intensely increased FDG activity present on the 01/16/2023 PET/CT. This is nonspecific, but because it is in the region of intensely increased FDG activity on the prior study, it is suspicious for residual lymphoma. Most of the other intensely FDG avid foci present on 01/16/2023 are completely resolved with the exception of activity in the right colon region which persists. The latter could be residual malignancy or physiological bowel uptake. Using the 5 point Deauville scale, this patient would be classified as a Deauville score of 4. 2. Diffuse osseous FDG activity is likely due to bone marrow stimulating chemotherapy such as Neulasta. Clinical correlation is recommended. 3. No additional abnormalities suspicious for other metastatic or malignant lesions are noted. 4. Vascular calcifications including coronary. 12/21/23: Unfortunately pt thought she had procedures today so had prepped. No GI issues today. Feels better than 3 months ago. Needs PEG prep refilled. 01/22/24: GAVE gastric ulcer Colonoscopy Findings: diverticulosis colon polyp internal hemorrhoids A. Duodenum, biopsy: Duodenal mucosa within normal limits; preserved villous architecture and no increased intraepithelial lymphocytes seen. B. Stomach, antrum, biopsy: Gastric antral mucosa with reactive gastropathy; negative for Helicobacter pylori, intestinal metaplasia and dysplasia. C. Stomach, greater curvature, biopsy: Gastric body mucosa with PPI effect; negative for Helicobacter pylori, intestinal metaplasia and dysplasia. D. Stomach, ulcer, mid body, biopsy: Gastric antral and body mucosa with reactive gastropathy, mild active gastritis and reactive epithelial change consistent with change adjacent to ulcer; negative for Helicobacter pylori, intestinal metaplasia and dysplasia. E. Stomach, lesser curvature, biopsy: Gastric body mucosa with PPI effect; negative for Helicobacter pylori, intestinal metaplasia and dysplasia. F. Colon, cecum, biopsy: Colonic mucosa within normal limits; negative for active, chronic or microscopic colitis. G. Terminal ileum, biopsy: Ileal mucosa within normal limits; negative for active or chronic ileitis. H. Colon, ascending, polypectomy: Clinically polypoid colonic mucosa noted; negative for a hyperplastic or neoplastic process. I. Colon, ascending, biopsy: Colonic mucosa within normal limits; negative for active, chronic or microscopic colitis. J. Colon, left, biopsy: Colonic mucosa within normal limits; negative for active, chronic or microscopic colitis. 02/11/24: Results of the EGD/colo reviewed with the pt. Images of the endoscopy personally reviewed as well as reviewed with the endoscopist and ulcer noted on most recent EGD appears to be in a different location compared to the prev one (incisura vs greater curvature) however could also be 2/2 angle of the scope. Bx benign vs nondiagnostic. [facility] Medical History History of blood transfusion Gastric lymphoma Orthostasis Moderate protein malnutrition Lymphoma malignant, large cell Anemia Abnormal CT of the abdomen Stomach cancer Kidney disease Asthma Surgical History History of esophagogastroduodenoscopy (EGD) Hx of colonoscopy Tubal ligation status History of bladder surgery History of cholecystectomy Social History Household Members: Family Housing: Apartment Do you presently have visiting nurse or other home services: Yes Alcohol intake: never Patient Tobacco Use Status: Former Tobacco user Tobacco use type: Cigarette e-Cigarette/Vaping Use: Never Used Second Hand Smoke Exposure: No Advance Directives Date on File: 02/12/20 service: No 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al status: disabled 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: r handed Review of Systems Const All systems reviewed & are unremarkable except as noted in HPI and below Physical Exam Vital Signs: Last Vital Signs Pulse 73 02/11/24 12:05 BP 116/56 L 02/11/24 12:05 BMI result Body Mass Index 21.5 Frail elderly female NAD abd soft nontender Assessment & Plan Assessment & Plan (1) Gastric lymphoma: Code(s): C85.99 - Non-Hodgkin lymphoma, unspecified, extranodal and solid organ sites Category: Medical (2) Gastric ulcer: Code(s): K25.9 - Gastric ulcer, unspecified as acute or chronic, without hemorrhage or perforation Category: Medical Plan Hx of bleeding gastric DLBCL s/p felix R CHP and XRT. Overall appears to be responding. Ulcer seen on ost recent EGD is small and ? PUD vs residual ca as location of the ulcer is unclear based on data. Bx benign vs nondiagnostic. Plan: - Omeprazole 20 BID - Repeat EGD in 3 months from prev - Surveillance imaging as per Onc - R colon not adequately prepped and would favor repeat colo in 1-2 years based on overall clinical course. Medications: Refilled omeprazole 20 mg PO BID 180 caps 1RF C85.99 - Non-Hodgkin lymphoma, unspecified, extranodal and solid organ sites Coding Level of Care Code Est Pt Level 4 (36536) Diagnoses Gastric lymphoma C85.99 Gastric ulcer K25.9
[2024-02-11 12:05] VITALS: BP 116/56; PULSE 73; BMI 21.5
== END 2024-02-11 12:58 | disposition home or self-care (01) ==
PROVIDERS: PCP Family Medicine; Visit Provider Internal Medicine
DX: C85.99 Non-Hodgkin lymphoma, unspecified, extranodal and solid organ sites (principal); K25.9 Gastric ulcer, unspecified as acute or chronic, without hemorrhage or perforation
CPT/HCPCS: 99214

== ENCOUNTER → 2024-02-11 11:29 | Outpatient (BNVA) | payer OTHER, SELFPAY | PROVIDERS: PCP Family Medicine; Visit Provider Internal Medicine | DX: C85.99 Non-Hodgkin lymphoma, unspecified, extranodal and solid organ sites (principal); K25.9 Gastric ulcer, unspecified as acute or chronic, without hemorrhage or perforation | CPT/HCPCS: 99212 ==

== ENCOUNTER 2024-02-19 10:00 | Outpatient (RCR) | payer OTHER, SELFPAY | END 2024-02-19 10:42 | disposition home or self-care (01) | LOC: HO.PT 10:00 | PROVIDERS: PCP Family Medicine; Visit Provider Family Medicine | DX: M26.622 Arthralgia of left temporomandibular joint (principal) | CPT/HCPCS: 97110; 97162 ==

== ENCOUNTER 2024-03-24 11:19 | Emergency (ER) | payer OTHER, SELFPAY ==
--- NOTE | ~2024-03-24 | XR_ITS ---
EXAMINATION: XR CHEST CLINICAL INFORMATION: Pneumonia? COMPARISON: X-ray dated April 26, 2023. TECHNIQUE: Frontal view of the chest was obtained. FINDINGS: Right-sided Port-A-Cath remains at the SVC. No consolidation, pleural effusion or pneumothorax. Cardiomediastinal silhouette is normal in size. Calcified plaque aortic arch. Level thoracic spondylosis. Radiopaque anchors in the left humeral head. Degenerative changes in the shoulders. Osteopenia versus osteoporosis. XR/XR chest 1V IMPRESSION: No acute airspace disease. Electronically signed by: Eusebio Austin MD 03/24/2024 02:13 PM [facility]
--- NOTE | ~2024-03-24 | CT_ITS ---
EXAMINATION: CT HEAD WITHOUT CONTRAST CLINICAL INFORMATION: Dizziness COMPARISON: CT dated February 23, 2023. TECHNIQUE: Contiguous axial imaging was performed from the skull base to vertex without intravenous administration of contrast. This CT examination was performed using dose optimization techniques as appropriate, variously including the following: *Automated exposure control *Adjustment of mA and/or kV according to patient size (this includes techniques or standardized protocols for targeted exams where dose is matched to indication/reason for exam; i.e. extremities or head) *Use of iterative reconstruction technique DLP: 549 mGy-cm FINDINGS: No acute intracranial hemorrhage, mass effect, midline shift, hydrocephalus or herniation. Hull-white matter differentiation is normal. Posterior cranial fossa contents demonstrated no acute intracranial hemorrhage or mass effect. Sellar/suprasellar region demonstrated no gross hemorrhage or masses. Craniocervical junction is intact. No air-fluid levels in the included paranasal sinuses. Tympanic cavities and mastoid cells are aerated. Calcified plaques in the cavernous and supracavernous segments both ICAs. CT/CT head/brain wo IV con IMPRESSION: No acute intracranial hemorrhage. Electronically signed by: Eusebio Austin MD 03/24/2024 02:54 PM EST
[2024-03-24 11:47] VITALS: BP 115/59; PULSE 75; RESP 16; TEMP 36; O2SAT 100; BMI 21.4
--- NOTE | 2024-03-24 11:49 | ECG_ITS ---
Test Reason : DIZZINESS Blood Pressure : / mmHG Vent. Rate : 070 BPM Atrial Rate : 070 BPM P-R Int : 098 ms QRS Dur : 086 ms QT Int : 410 ms P-R-T Axes : -20 002 062 degrees QTc Int : 442 ms Sinus rhythm with short ND Otherwise normal ECG When compared with ECG of 12-APR-2023 17:11, Previous ECG has undetermined rhythm, needs review Nonspecific T wave abnormality, improved in Anterolateral leads Referred By: Rebel Patel Electronically Signed By:LORI CRANDALL MD
--- NOTE | 2024-03-24 11:53 | ED_ITS ---
HPI - General Adult General Chief complaint: Dizziness Stated complaint: nausea History of Present Illness HPI narrative: Patient left before completion of treatment. Related Data Home Medications ?Medication ?Instructions ?Recorded ?Confirmed albuterol sulfate 90 mcg/actuation 2 puff inhalation Q4H PRN 10/10/21 02/22/24 aerosol inhaler Shortness Of Breath Or Wheezing atorvastatin 80 mg tablet 80 mg PO QPM 10/10/21 02/22/24 loratadine 10 mg tablet 10 mg PO DAILY PRN Allergic 10/10/21 02/22/24 Symptoms fluticasone propionate 50 1 spray intranasal BID PRN Allergy 11/25/22 02/22/24 mcg/actuation nasal Symptoms spray,suspension cyanocobalamin (vitamin B-12) 1,000 mcg PO DAILY 03/09/23 02/22/24 1,000 mcg tablet umeclidinium 62.5 mcg/actuation 1 inh inhalation DAILY 03/09/23 02/22/24 blister powder for inhalation (Incruse Ellipta) diphenhydramine HCl 25 mg capsule 25 mg PO BEDTIME 02/11/24 02/22/24 potassium chloride 10 mEq 10 meq PO BID 02/11/24 02/22/24 capsule,extended release tramadol 50 mg tablet 50 mg PO TID PRN Pain 02/11/24 02/22/24 Previous Rx's ?Medication ?Instructions ?Recorded ondansetron 8 mg disintegrating 8 mg PO Q8H PRN Nausea #30 tabs 04/16/23 tablet calcium carbonate 600 mg-vitamin 1 tab PO BID #60 tabs 04/17/23 D3 10 mcg (400 unit) tablet (Calcium 600 + D(3)) midodrine 5 mg tablet 5 mg PO TID #90 tabs 05/29/23 potassium chloride 20 mEq oral 20 meq PO DAILY #30 ea 05/29/23 packet (Klor-Con) sucralfate 100 mg/mL oral 10 ml PO TID #1,000 mL 05/29/23 suspension sennosides 8.6 mg tablet (Senokot) 17.2 mg (2 x 8.6 mg) PO BID #120 07/04/23 tabs omeprazole 20 mg capsule,delayed 20 mg PO BID #180 caps 02/11/24 release Allergies Allergy/AdvReac Type Severity Reaction Status Date / Time black pepper Allergy Intermediate Rash Verified 03/24/24 11:49 codeine [CODEINE] Allergy Intermediate RASH Verified 03/24/24 11:49 ibuprofen [From MOTRIN] Allergy Intermediate RASH Verified 03/24/24 11:49 Penicillins [PENICILLINS] Allergy Intermediate RASH Verified 03/24/24 11:49 pineapple Allergy Intermediate Rash Verified 03/24/24 11:49 PMFSH Past Medical History Medical History History of blood transfusion Gastric lymphoma Orthostasis Moderate protein malnutrition Lymphoma malignant, large cell Anemia Abnormal CT of the abdomen Stomach cancer Kidney disease Asthma Surgical History History of esophagogastroduodenoscopy (EGD) Hx of colonoscopy Tubal ligation status History of bladder surgery History of cholecystectomy Social History Social History Household Members: Family Housing: Apartment Do you presently have visiting nurse or other home services: Yes Alcohol intake: never Patient Tobacco Use Status: Former Tobacco user Tobacco use type: Cigarette e-Cigarette/Vaping Use: Never Used Second Hand Smoke Exposure: No Advance Directives: Yes Advance Directives on File: Yes Advance Directives Date on File: 02/12/20 Do you have a plan to hurt others: No Plan service: No 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al status: disabled 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: r handed Physical Exam ED Vital Signs: Vital Signs - 24 hr 03/24/24 11:47 Temperature 96.8 F Pulse Rate 75 Respiratory Rate 16 Blood Pressure 115/59 L Pulse Oximetry 100 Oxygen Delivery Method Room Air BMI result Body Mass Index 21.4 Course Course Course Narrative: RME: Done by ROSIBEL Patel. 78-year-old female with history of gastric cancer in remission presents to ED for dizziness and fatigue. Patient states every time she gets up she felt like room full dizzy. Patient's symptoms states going on for couple of days. Patient also states sore throat slight cough. Patient denies any stroke-like symptoms. NIH score is 0. EKG labs ordered Medical Decision Making Lab Data 03/24/24 12:08 03/24/24 12:08 Labs: Lab Results 03/24/24 03/24/24 Range/Units 12:08 12:09 WBC 6.2 (4.8-10.8) X10*3/uL RBC 2.32 L (4.20-5.50) X10*6/uL Hgb 7.4 L (12.0-16.0) g/dl Hct 23.1 L (37.0-47.0) % MCV 99.6 H (80.0-98.0) fL MCH 31.9 (27.0-33.0) pg MCHC 32.0 (31.0-35.0) g/dl RDW 16.7 H (11.0-16.0) % Plt Count 191 D (160-400) X10*3/uL MPV 9.8 (9.4-12.3) fL Immature Gran % (Auto) 0.6 H (0.0-0.4) % Neut % (Auto) 79.0 H (45-73) % Lymph % (Auto) 9.8 L (20-40) % [place] % (Auto) 8.7 (2-11) % Eos % (Auto) 1.6 (0-4) % Baso % (Auto) 0.3 (0-2) % Lymph # (Auto) 0.6 L (1.2-4.9) X10*3/uL [place] # (Auto) 0.5 (0.1-1.2) X10*3/uL Eos # (Auto) 0.1 (0.0-0.4) X10*3/uL Baso # (Auto) 0.0 (0.0-0.2) X10*3/uL Abs Immat Gran (auto) 0.04 H (0.00-0.03) X10*3/uL Absolute Neuts (auto) 4.9 (2.0-8.3) x10*3/uL Absolute Nucleated RBC 0.000 (0.0-0.012) X10*3/uL Nucleated RBC % (auto) 0.0 (0.0-0.2) /100WBC PT 11.6 (10.9-12.4) SEC INR 1.0 (0.9-1.1) APTT 31.6 (26.0-36.8) SEC Sodium 142 (135-145) mmol/L Potassium 4.7 D (3.3-5.1) mmol/L Chloride 109 H (96-108) mmol/L Carbon Dioxide 27 (22-29) mmol/L Anion Gap 11 L (12-20) BUN 26 H (9-16) mg/dL Creatinine 1.63 H (0.5-1.4) mg/dL Estim Creat Clear Calc 20.7 Estimated GFR 31 Random Glucose 103 (60-115) mg/dL Calcium 8.5 (8.4-10.2) mg/dL Magnesium 2.2 (1.6-2.6) mg/dL Total Bilirubin 0.2 (0.0-1.0) mg/dL AST 21 (5-31) U/L ALT 17 (0-31) U/L Alkaline Phosphatase 96 (39-117) U/L Troponin I High Sens 5.4 D (<3.5-17.0) ng/L Total Protein 6.3 L (6.5-8.0) g/dL Albumin 3.8 (3.5-5.0) g/dL Influenza Type A (PCR) NEGATIVE (Negative) Influenza Type B (PCR) NEGATIVE (Negative) RSV RNA Qual (PCR) NEGATIVE (Negative) SARS-CoV-2 RNA (RT-PCR) NEGATIVE (Negative) S. pyogenes GrpA OSMANY Negative (Negative) Discharge Plan Discharge Clinical Impression: General medical exam Patient Disposition: Left W/O Completing Treatment Prescriptions: No Action fluticasone propionate 50 mcg/actuation spray,suspension 1 spray intranasal BID PRN (Reason: Allergy Symptoms) calcium carbonate-vitamin D3 [Calcium 600 + D(3)] 600 mg-10 mcg (400 unit) Tablet 1 tab PO BID Qty: 60 5RF midodrine 5 mg Tablet 5 mg PO TID Qty: 90 4RF Rx Instructions: do not give last dose of day after 6PM or within 4 hrs of bedtime sucralfate 100 mg/mL suspension 10 ml PO TID Qty: 1000 0RF potassium chloride [Klor-Con] 20 mEq Packet 20 meq PO DAILY Qty: 30 0RF sennosides [Senokot] 8.6 mg Tablet 17.2 mg PO BID Qty: 120 3RF ondansetron 8 mg tablet,disintegrating 8 mg PO Q8H PRN (Reason: Nausea) Qty: 30 3RF albuterol sulfate 90 mcg/actuation HFA aerosol inhaler 2 puff inhalation Q4H PRN (Reason: Shortness Of Breath Or Wheezing) atorvastatin 80 mg tablet 80 mg PO QPM loratadine 10 mg tablet 10 mg PO DAILY PRN (Reason: Allergic Symptoms) Incruse Ellipta 62.5 mcg/actuation blister with device 1 inh inhalation DAILY cyanocobalamin (vitamin B-12) 1,000 mcg tablet 1,000 mcg PO DAILY diphenhydramine HCl 25 mg capsule 25 mg PO BEDTIME tramadol 50 mg tablet 50 mg PO TID PRN (Reason: Pain) potassium chloride 10 mEq capsule, extended release 10 meq PO BID omeprazole 20 mg capsule,delayed release(DR/EC) 20 mg PO BID Qty: 180 1RF Discharge Date/Time: 03/24/24 20:15
[2024-03-24 12:15] LABS: MANUAL DIFF FLAG NO
[2024-03-24 12:19] LABS: Basophils Percent Auto 0.3 % (0-2); Eosinophils Absolute Auto 0.1 X10*3/uL (0.0-0.4); Eosinophils Percent Auto 1.6 % (0-4); Hematocrit 23.1 % (37.0-47.0); Hemoglobin 7.4 g/dl (12.0-16.0); Imm Gran Abs Auto 0.04 X10*3/uL (0.00-0.03); Imm Gran Pct Auto 0.6 % (0.0-0.4); Lymphocytes Absolute Auto 0.6 X10*3/uL (1.2-4.9); Lymphocytes Percent Auto 9.8 % (20-40); Mean Corpuscular Hemoglobin 31.9 pg (27.0-33.0); Mean Corpuscular Volume 99.6 fL (80.0-98.0); Mean Platelet Volume 9.8 fL (9.4-12.3); Monocytes Absolute Auto 0.5 X10*3/uL (0.1-1.2); Monocytes Percent Auto 8.7 % (2-11); Neutrophils Absolute Auto 4.9 x10*3/uL (2.0-8.3); Platelet Count 191 X10*3/uL (160-400); Red Blood Count 2.32 X10*6/uL (4.20-5.50); Red Cell Distribution Width 16.7 % (11.0-16.0); White Blood Count 6.2 X10*3/uL (4.8-10.8)
[2024-03-24 12:32] LABS: Alanine Aminotransferase 17 U/L (0-31); Albumin Level 3.8 g/dL (3.5-5.0); Alkaline Phosphatase 96 U/L (39-117); Anion Gap 11 (12-20); Aspartate Amino Transferase 21 U/L (5-31); Bilirubin Total 0.2 mg/dL (0.0-1.0); Blood Urea Nitrogen 26 mg/dL (9-16); Calcium 8.5 mg/dL (8.4-10.2); Carbon Dioxide 27 mmol/L (22-29); Chloride 109 mmol/L (96-108); Creatinine Clr Calc Pharmacy 20.7; Estimated Glomerular Filt Rate 31; Glucose Random 103 mg/dL (60-115); Magnesium 2.2 mg/dL (1.6-2.6); Potassium 4.7 mmol/L (3.3-5.1); Sodium 142 mmol/L (135-145); Total Protein 6.3 g/dL (6.5-8.0)
[2024-03-24 12:35] LABS: Prothrombin Time 11.6 SEC (10.9-12.4)
[2024-03-24 12:36] LABS: Troponin-I High Sensitivity 5.4 ng/L (<3.5-17.0)
[2024-03-24 12:38] LABS: Partial Thromboplastin Time 31.6 SEC (26.0-36.8)
[2024-03-24 12:39] LABS: IDNOW Serial# 08D9AD1C; Strep A Nucleic Acid Negative (Negative)
[2024-03-24 13:44] LABS: Influenza A PCR NEGATIVE (Negative); Influenza B PCR NEGATIVE (Negative); Resp Syncy Virus RNA Qual PCR NEGATIVE (Negative); SARS COV2 PCR INHOUSE NEGATIVE (Negative)
== END 2024-03-24 20:15 | disposition left against medical advice (07) ==
PROVIDERS: Physician Assistant; Emergency Provider Emergency Medicine Emergency Medical Services; PCP Family Medicine
DX: R42 Dizziness and giddiness (principal); R11.0 Nausea; Z03.818 Encounter for observation for suspected exposure to other biological agents ruled out; Z85.028 Personal history of other malignant neoplasm of stomach; D64.81 Anemia due to antineoplastic chemotherapy; D69.59 Other secondary thrombocytopenia; J45.909 Unspecified asthma, uncomplicated; Z79.899 Other long term (current) drug therapy
CPT/HCPCS: 0241U; 36415; 70450; 71045; 80053; 83735; 84484; 85025; 85610; 85730; 87651; 93005; 99283; 99284

== ENCOUNTER → 2024-03-24 11:49 | Outpatient (BNV) | payer OTHER, SELFPAY | PROVIDERS: PCP Family Medicine; Visit Provider Internal Medicine Cardiovascular Disease | DX: R42 Dizziness and giddiness (principal) | CPT/HCPCS: 93010 ==

== ENCOUNTER → 2024-03-24 11:52 | Outpatient (BNV) | payer OTHER, SELFPAY | PROVIDERS: PCP Family Medicine; Visit Provider Radiology Diagnostic Radiology | DX: R42 Dizziness and giddiness (principal) | CPT/HCPCS: 70450; 71045 ==

== ENCOUNTER 2024-04-29 09:33 | Day surgery (SDC) | payer OTHER, SELFPAY ==
--- OUTSIDE RECORDS SUMMARY | 2024-04-29 09:36 | XMS_ITS | Data Portability ---
Author Organization [facility], [place] in - [facility] Address [address] [place] [id number] Care Team Providers Care Security System Installer Name Role Phone HIM CCA OTHER Assessment Encounter Date Assessment Date Assessment LastModified by Organization Details LastModified Time 10/25/2023 10/25/2023 I provided real -time medical direction via phone for this encounter and was available for additional phone-based assistance as needed. I have reviewed and agree with the Assessment and Plan as documented by the Regional Climate Change Analyst. Patient given the opportunity to ask questions. Our service contacted for an assessment of: a rash As per above, patient has a rash on the neck for several days. Is pruritic. Denies any new medications, exposures to new environmental toxins, creams, lotions, soaps, etc. No new pets or animals in the house. Per technical expert on the scene, VSS. Non-toxic. Please see uploaded pictures. Impression: Likely eczema Plan: For now - hydrate, use usual soap and use usual lotion liberally to the area. Can try hydorcortisone cream. [email or web address] Not available 10/25/2023 14:20:48 Plan of Treatment Reminders Order Date Submit Date Provider Last Modified By Organization Details Last Modified Time Details Appointments None recorded. Lab cmp, whole blood + tosin [email or web address] [facility], [address] [place] [address], [phone], 4 14:05:12 BMP, serum or plasma 2023 [email or web address], [phone], 21:45:00 Referral None recorded. Procedures None recorded. Surgeries None recorded. Imaging None recorded. Medication Orders furosemide 10 mg/mL injection syringe 2023 024 Not available 12:49:04 Patient TargetsNo targets recorded. Patient InstructionsNo instructions recorded. Reason for Referral None Reported. Results Created Date Observation Date Name Description Value Unit Range Abnormal Flag Note LastModifiedBy Organization Detail LastModifiedTime 06/14/19 24 06/14/2023 cmp, whole blood + picco lo BUN 10 Not Available [facility] [address], [address], 06/14/2023 12:48:42 06/14/19 24 06/14/2023 cmp, whole blood + picco lo CRE 0.8 Not Available [facility] [address], [address], 06/14/2023 12:48:42 06/14/19 24 06/14/2023 cmp, whole blood + picco lo GLU 101 Not Available [facility] [address], [address], 06/14/2023 12:48:42 06/14/19 24 06/14/2023 cmp, whole blood + picco lo K+ 4.6 Not Available [facility] [address], [phone], 06/14/2023 12:48:42 06/14/19 24 06/14/2023 cmp, whole blood + picco lo Na+ 145 Not Available [facility] [address], [phone], 06/14/2023 12:48:42 Result Notes None recorded. Medical Equipment None Reported. Medications Name Sig Start Date Stop Date Status Note LastModified by Organization Details LastModified Time magnesium citrate 200mg (cardinal) TAKE 1/2 TABLET BY MOUTH AT BEDTIME active Not Available Not Available No t Available atorvastatin 80 mg tablet TAKE 1 TABLET BY MOUTH EVERY DAY active Not Available Not Available No t Available potassium chloride ER 10 mEq capsule,exte nded release active Not Available Not Available Not Available albuterol sulfate 2.5 mg/3 mL (0.083 %) solution for nebulization INHALE 1 AMPULE USING A NEBULIZER EVERY 4 HOURS NEEDED active Not Available Not Available No t Available polyethylene glycol 3350 17 gram oral powder packet active Not Available Not Available Not Available senna 8.6 mg tablet TAKE 1 TABLET BY MOUTH EVERY DAY NEEDED FOR CONSTIPATIO N active Not Available Not Available No t Available sucralfate 100 mg/mL oral suspension active Not Available Not Available N ot Available ondansetron HCl 4 mg tablet TAKE 1 TABLET BY MOUTH EVERY 8 HOURS NEEDED FOR NAUSEA AND VOMITING FOR UP TO 7 DAYS active Not Available Not Available No t Available prednisone 20 mg tablet active Not Available Not Available Not Available midodrine 5 mg tablet active Not Available Not Available No t Available cyanocobalam in (vit B-12) 1,000 mcg tablet TAKE 2 TABLETS BY MOUTH EVERY DAY active Not Available Not Available No t Available sulfamethoxa zole 800 mg-trimethop rim 160 mg tablet active Not Available Not Available Not Available tramadol 50 mg tablet TAKE 1 TABLET BY MOUTH EVERY 8 HOURS active Not Available Not Available No t Available ondansetron 8 mg disintegrati ng tablet DISSOLVE 1 TABLET ON TONGUE EVERY 8 HOURS NEEDED FOR NAUSEA active Not Available Not Available No t Available dicyclomine 20 mg tablet TAKE 1 TABLET BY MOUTH BEFORE BREAKFAST, BEFORE LUNCH, BEFORE SUPPER AND AT BEDTIME active Not Available Not Available N ot Available pantoprazole 40 mg tablet,delay ed release TAKE 1 TABLET BY MOUTH ONCE DAILY BEFORE BREAKFAST DO NOT BREAK, CRUSH, DISSOLVE OR CHEW active Not Available Not Available No t Available diphenhydram ine 25 mg capsule TAKE 1 CAPSULE BY MOUTH EVERY 4 TO 6 HOURS NEEDED active Not Available Not Available No t Available dexamethason e 4 mg tablet active Not Available Not Available Not Available omeprazole 20 mg capsule,sam yed release TAKE 1 CAPSULE BY MOUTH TWICE DAILY active Not Available Not Available No t Available bisacodyl 5 mg tablet,delay ed release TAKE 1 TABLET BY MOUTH EVERY DAY NEEDED FOR CONSTIPATIO N, DO NOT BREAK, CRUSH, DISSOLVE OR CHEW active Not Available Not Available No t Available furosemide 20 mg tablet TAKE 1 TABLET BY MOUTH ONCE DAILY NEEDED active Not Available Not Available No t Available cefuroxime axetil 500 mg tablet active Not Available Not Available No t Available albuterol sulfate HFA 90 mcg/actuatio n aerosol inhaler INHALE 2 PUFFS BY MOUTH EVERY 4 HOURS NEEDED active Not Available Not Available No t Available ondansetron 4 mg disintegrati ng tablet PLEASE SEE ATTACHED FOR DETAILED DIRECTIONS active Not Available Not Available N ot Available fluticasone propionate 50 mcg/actuatio n nasal spray,suspen linda USE 1 SPRAY IN EACH NOSTRIL TWICE DAILY active Not Available Not Available Not Available fludrocortis one 0.1 mg tablet active Not Available Not Available Not Available loratadine 10 mg tablet TAKE 1 TABLET BY MOUTH DAILY NEEDED active Not Available Not Available No t Available oxycodone 5 mg tablet TAKE 1 TABLET BY MOUTH EVERY 6 HOURS NEEDED FOR SEVERE PAIN active Not Available Not Available Not Available furosemide 10 mg/mL injection syringe Inject 20 mg intravenous ly. 2023 active Not Available Not Available Not Avai lable nitrofuranto in monohydrate/ macrocrystal s 100 mg capsule TOME 1 C PSULA POR V A ORAL DOS VECES AL D A POR 7 D CON COMIDA active Not Available Not Available No t Available cholecalcife rol (vitamin D3) 125 mcg (5,000 unit) tablet TAKE 1 TABLET BY MOUTH EVERY DAY active Not Available Not Available No t Available blood pressure test kit-large cuff USE TO CHECK BLOOD PRESSURE ONCE DAILY IN THE MORNING active Not Available Not Available No t Available Incruse Ellipta 62.5 mcg/actuatio n powder for inhalation INHALE 1 PUFF EVERY DAY AT THE SAME TIME active Not Available Not Available No t Available Vitals Date Recorded Respiratory rate Heart rate Body weight Oxygen saturation Oxygen saturation in Arterial blood by Pulse oximetry Body temperature Systolic blood pressure Diastolic blood pressure Provider Name and Address Organization Details Last Updated DateTime 3 18 /min 88 /min 56394.3 6 g 99 % 99 % 98.4 [degF] 99 mm[Hg] 66 mm[Hg] Not Available [facility] 3 13:46:08 Date Recorded Respiratory rate Body weight Body height Heart rate Oxygen saturation Oxygen saturation in Arterial blood by Pulse oximetry Body temperature Systolic blood pressure Diastolic blood pressure Provider Name and Address Organization Details Last Updated DateTime 4 16 /min 708772. 776 g 152.4 cm 83 /min 99 % 99 % 98.3 [degF] 116 mm[Hg] 63 mm[Hg] Not Available [facility] 4 12:12:28 Date Recorded Heart rate Respiratory rate Oxygen saturation Oxygen saturation in Arterial blood by Pulse oximetry Body temperature Body weight Systolic blood pressure Diastolic blood pressure Provider Name and Address Organization Details Last Updated DateTime 4 88 /min 16 /min 98 % 98 % 97.6 [degF] 21353.1 6 g 132 mm[Hg] 78 mm[Hg] Not Available [facility] 4 11:32:10 Date Recorded Body weight Heart rate Respiratory rate Body temperature Oxygen saturation Oxygen saturation in Arterial blood by Pulse oximetry Systolic blood pressure Diastolic blood pressure Provider Name and Address Organization Details Last Updated DateTime 4 45379.5 68 g 82 /min 16 /min 98.2 [degF] 99 % 99 % 104 mm[Hg] 62 mm[Hg] Not Available [facility] 14:18:31 Social History None recorded. Functional Status None recorded. Mental Status None recorded. Family History Nothing Reported. Medical History No medical history recorded. Gynecological HistoryNo gynecological history recorded. Obstetrics History GPAL:G 0 P 0 0 0 0 Past Encounters Encounter ID Performer Location Encounter Start Date Encounter Closed Date Diagnosis/Indication Diagnosis SNOMED-CT Code Diagnosis ICD10 Code [id number] Pelon Fuentes MD [facility] [address] [place] [phone] 03/23/2023 13:46:05 03/25/2023 15:39:55 Hypotensive episode 78640089 I95.9 [id number] Kamila Pinto MD [facility] [address] [place] [phone] 06/14/2023 12:12:19 06/14/2023 21:49:37 Edema of lower extremity 885534620 R60.0 Congestive heart failure 74360881 I50.9 [id number] Cyrus Conteh MD [facility] [address] [place] [phone] 06/16/2023 11:31:55 06/18/2023 13:06:21 Edema of lower extremity 125020320 R60.0 [id number] Linnette Sommer MD [facility] [address] [place] [phone] 10/25/2023 14:18:25 10/25/2023 20:34:21 Pruritic rash 68823109 L28.2 Health Concerns Section Related Observation LastModified by Organization Detai ls LastModified Time None Recorded Concern Status LastModified by Organization Details LastModified Time None Recorded Advance Directives Directive None Recorded Payers Encounter Date Sequence Insurance Name Policy Number Policy Funez Covered Member ID Funez Member ID Guarantor Name 03/23/2023 1 [facility] AFTER [facility] - DUAL ELIGIBLE - LONGTERM OPTIONS AND ONE CARE (MEDICARE REPLACEMENT/ADV ANTAGE - HMO) Delmy Loredovo [id number] Delmy Ann 06/14/2023 1 [facility] ON OR AFTER 2022 - DUAL ELIGIBLE - LONGTERM OPTIONS AND ONE CARE (MEDICARE REPLACEMENT/ADV ANTAGE - HMO) Delmy Loredovo [id number] Delmy Loredovo 06/16/2023 1 [facility] DOS ON OR AFTER 2022 - DUAL ELIGIBLE - LONGTERM OPTIONS AND ONE CARE (MEDICARE REPLACEMENT/ADV ANTAGE - HMO) Delmy Loredovo [id number] Delmy Loredovo 10/25/2023 1 [facility] ON OR AFTER 2022 - DUAL ELIGIBLE - LONGTERM OPTIONS AND ONE CARE (MEDICARE REPLACEMENT/ADV ANTAGE - HMO) Delmy Loredovo [id number] Delmy Ann Notes Date Note Type Note Provider Name and Address Organization Details Recorded Time 03/23/2023 text/html HPI: 77yo female with gastric CA, COPD, Stage 3 CKD, vertigo, UTI, bilateral cataract, OA, gastric lymphoma, carpel tunnel syndrome and dizziness- recently D/C from hospital for syncope now on Midodrine and Fludrocortisone for hypotension- today hypotensive again- Lasix had been DC'd- K+ was 2.5 in hospital- repleted up to 3.2 upon discharge. B/P 80/40 HR 110. Son rechecked tonite 78/46 HR 109. Fluids have been encouraged. Poor appetite and weight loss- remains FC- family meeting pending. ..................... ..................... ..................... ..................... ..................... ..................... ............... [facility] Nursing Assessment: Comments: Reviewed. Danny Botello RN ..................... ..................... ..................... ..................... ..................... ..................... ............... Regional Climate Change Analyst Note From Andrae Bell: Pt has no complaints today. Is eating. Seems to be confusion as to why the visit according to PLATE FURNACE OPERATOR and PT. They sts the RN that visited yesterday wanted her seen due to low BP. She has low BP at baseline and is on meds. Pt sts she had not taken her meds yet when the RN took her pressure. After she took her meds she sts her pressure was fine. Pt sts eating and drinking. Good mentation. Pt denies CP SOB weakness dizziness. Baseline vitals assessed. Lungs clear bilaterally. Pt sts feels great. [facility] contacted and pt educated on signs indicating the ER. ..................... ..................... ..................... ..................... ..................... ..................... ............... Disposition: Fulfilled Pelon Fuentes MD [address] [facility],[address], [place], [phone], [facility] - [employer] 03/23/2023 13:47:59 06/14/2023 text/html HPI: Swelling of bilateral lower extremities. No pain or redness. Pt has rx for furosemide but was discontinued. Wanted to report to PCP as new onset for patient. Advised pt will need to be triaged and seen. Confirmed call back for patient. Call to Delmy Ann, reports having bilateral lower leg edema x 3 days. Mild improvement with elevation. Per pt no rash or bruising. No upper extremity swelling, face swelling or SOB. Pt does note some redness due to skin being so tight. Pt advised of disposition, no appt availability in [facility]. Agrees to [facility] for eval. ..................... ..................... ..................... ..................... ..................... ..................... ............... [facility] Nurse Triage Notes (Padmini Copeland): Comments: Reviewed HPI- no further info needed HPatthuy RN ..................... ..................... ..................... ..................... ..................... ..................... ............... Regional Climate Change Analyst Note From Shmuel Doe[facility]. Pt presents conscious and alert ambulating without difficulty in apartment. Pt states that she has had painful swelling in both her lower legs over the last few days. Pt was previously on furosemide for CHF but reports her doctor discontinued it due to her cancer in the abdomen. Legs noted to be edematous and tender to palpation. Pictures taken for [facility] review. Vital signs taken and WNL. Pt afebrile. Consulted with [facility] who advised drawing istat labs and establishing iv for lasix administration. I stat labs drawn as follows: Na 145, K 4.6, Cl 106, iCa 1.13, TCO2 27, Glu 101, BUN 10, Creatinine 0.8, Hct 28, Hb 9.5 Anion gap 18. Consulted with [facility] who ordered 20 mg IV lasix administered on scene and follow up scheduled for 48 hours later. Patient education provided. [facility] Lab Orders: cmp, whole blood + tosin: Performed ..................... ..................... ..................... ..................... ..................... ..................... ............... Disposition: Fulfilled Kamila Pinto MD [address] [place] [address],[address], [place], [phone], [employer] - [employer] 06/14/2023 14:05:23 06/16/2023 text/html HPI: Edema on LE, treated by NAIAM on 06/14 with IV Lasix and requires a F/u in 48 hrs. Member is a 77-year-old Hungarian speaking female, on [facility] Palliative services for diagnosis of Malignant Neoplasm of Stomach in the setting of 40-pound weight loss (155 to 110 lb). Other DX are COPD, Stage 3 CKD, vertigo, UTI, bilateral cataract, OA, gastric lymphoma, carpel tunnel syndrome and is on Chemo every 2 weeks at [facility], [facility] for 06/19/23, ..................... ..................... ..................... ..................... ..................... ..................... ............... [facility] Nurse Triage Notes (León Pina): Comments: No further information required to process visit. 06/16 - Outreach call to the member for a wellness check - Member reports lower extremity swelling - S/S remain the same - Follow up visit requested - Ean YOUNG ..................... ..................... ..................... ..................... ..................... ..................... ............... Regional Climate Change Analyst Note From Andrae Bell: Pt f/u from 06/14 visit. Pt sts has had improvement to the edema in lower extremities. Pt denies fever pain sob or CP. baseline vitals assessed. POc bloodwork unremarkable. Lungs clear afebrile. C contacted and advised to keep legs elevated and monitor. Pt education on signs indicating the ER. ..................... ..................... ..................... ..................... ..................... ..................... ............... 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 Thank you ..................... ..................... ..................... ..................... ..................... ..................... ............... [facility] Nurse Triage Notes (Selam Botello): Comments: HPI reviewed. No further information needed to process visit. ..................... ..................... ..................... ..................... ..................... ..................... ............... Regional Climate Change Analyst Note From Andrae Bell: Pt co itching rash on skin off neck x3 days. Pt using Benadryl cream to relieve itching. Pt recently finished zpac. Pt denies wheeping or bleeding, fevers, difficulty swelling or breathing. Denies dizziness headache NVD CP or SOB. Pt sts no new med other than zpac and no new lotions or soaps. Baseline vitals assessed, lungs clear, area has some dryness and a few hive like bumps pink in color. Afebrile. C contacted and advised to follow up with pcp for referral to [facility]. Pt advised to use hydrocortisone cream vs Benadryl. Pt education on signs indicating the ER. ..................... ..................... ..................... ..................... ..................... ..................... ............... Disposition: Fulfilled Linnette Sommer MD [address] [facility],[address], [place], [address], [employer] 10/25/2023 14:20:59 OBGyn Episode No OBEpisode recorded.
[2024-04-29 09:40] VITALS: BMI 21.7
--- NOTE | 2024-04-29 09:42 | MHC.SHP ---
Pre-Procedural Eval Section A - 24 Hr Update-Section A only Date of Service: 04/29/24 Section B - Complete if H&P > 30 days Chief Complaint: gastric lymphoma Details of Present Illness: History of blood transfusion Gastric lymphoma Orthostasis Moderate protein malnutrition Lymphoma malignant, large cell Anemia Abnormal CT of the abdomen Stomach cancer Kidney disease Asthma Surgical History History of esophagogastroduodenoscopy (EGD) Hx of colonoscopy Tubal ligation status History of bladder surgery History of cholecystectomy Present Medications: see Short Stay Collaborative assessment Allergies: Allergies Allergy/AdvReac Type Severity Reaction Status Date / Time black pepper Allergy Intermediate Rash Verified 04/18/24 10:38 codeine [CODEINE] Allergy Intermediate RASH Verified 04/18/24 10:38 ibuprofen [From MOTRIN] Allergy Intermediate RASH Verified 04/18/24 10:38 Penicillins [PENICILLINS] Allergy Intermediate RASH Verified 04/18/24 10:38 pineapple Allergy Intermediate Rash Verified 04/18/24 10:38 Review of Systems Review of Systems Comment: Ten point ROS negative Exam Exam Comment: Gen appear: No acute distress HEENT: no icterus Chest: No overt resp distress Abd: soft, nontender, nondistended Psych: Stable affect, answering questions appropriately Neuro: A/Ox3 noted to move all extremities spontaneously Ext: no peripheral edema Plan Diagnosis/Plan: Unchanged I have reviewed the history and physical and performed a pertinent physical examination on my patient. No changes have occurred unless specified. Time Spent With Patient Time: Total time managing care of this patient today ____ minutes.
[2024-04-29 09:54] VITALS: BP 120/67; PULSE 70; RESP 16; TEMP 37.1; O2SAT 99
[2024-04-29 09:58] LABS: Hematocrit 34.2 % (37.0-47.0); Mean Corpuscular HGB Conc 32.2 g/dl (31.0-35.0); Mean Corpuscular Hemoglobin 31.5 pg (27.0-33.0); Mean Platelet Volume 9.9 fL (9.4-12.3); Platelet Count 171 X10*3/uL (160-400); Red Blood Count 3.49 X10*6/uL (4.20-5.50); Red Cell Distribution Width 13.5 % (11.0-16.0); White Blood Count 6.4 X10*3/uL (4.8-10.8)
--- NOTE | 2024-04-29 10:18 | P.CONAN_ITS ---
Documented by User: Padmini Chicas NP 04/28/24 10:46 HPI - Anesthesia Eval Consult details Narrative: 78yo F for Upper Endoscopy Gastric lymphoma. Follows [facility] On[facility]. Last office visit 04/18/24, received 1 unit PRBC. PMFSH Active Problems Active Problems: All Active Problems Gastric ulcer (Acute) Severe thrombocytopenia (Acute) Severe protein-calorie malnutrition (Acute) Hypophosphatemia (Acute) Hypomagnesemia (Acute) UTI (urinary tract infection) (Acute) Chronic abdominal pain (Acute) Weight loss (Acute) Nausea & vomiting (Acute) Anemia (Acute) Hypokalemia (Acute) Chemotherapy-induced thrombocytopenia (Acute) Anemia associated with chemotherapy (Acute) Gastric lymphoma (Acute) Gastric lymphoma (Acute) Gastric mass (Acute) Trochanteric bursitis, right hip (Acute) Osteoarthritis of right knee (Acute) Iliotibial band syndrome of right side (Acute) BPPV (benign paroxysmal positional vertigo) (Acute) Moderate protein malnutrition (Acute) Orthostasis (Acute) Kidney disease (Acute) Asthma (Acute) Past Medical History Medical History (Updated 04/29/24 @ 09:52 by Dawna Milligan RN) Seizure History of blood transfusion Gastric lymphoma Orthostasis Moderate protein malnutrition Lymphoma malignant, large cell Anemia Abnormal CT of the abdomen Stomach cancer Kidney disease Asthma Family History Family history of problems with anesthesia: No Surgical History Surgical History History of esophagogastroduodenoscopy (EGD) Hx of colonoscopy Tubal ligation status History of bladder surgery History of cholecystectomy History of Problems with Anesthesia: No Social History Social History Household Members: Family Housing: Apartment Do you presently have visiting nurse or other home services: Yes Alcohol intake: never Patient Tobacco Use Status: Former Tobacco user Tobacco use type: Cigarette e-Cigarette/Vaping Use: Never Used Second Hand Smoke Exposure: No Use of substances other than those prescribed or required for medical reasons: No Advance Directives: No Advance Directives Information Provided: Yes Advance Directives Date on File: 02/12/20 Nutrition Risks: No Nutritional Risk Patient : No service: No 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al status: disabled 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: r [employer] Allergies Allergy/AdvReac Type Severity Reaction Status Date / Time black pepper Allergy Intermediate Rash Verified 04/18/24 10:38 codeine [CODEINE] Allergy Intermediate RASH Verified 04/18/24 10:38 ibuprofen [From MOTRIN] Allergy Intermediate RASH Verified 04/18/24 10:38 Penicillins [PENICILLINS] Allergy Intermediate RASH Verified 04/18/24 10:38 pineapple Allergy Intermediate Rash Verified 04/18/24 10:38 Home Medications ?Medication ?Instructions ?Recorded ?Confirmed ?Last Taken ?Type albuterol sulfate 90 mcg/actuation 2 puff inhalation Q4H PRN 10/10/21 04/18/24 Unknown History aerosol inhaler Shortness Of Breath Or Wheezing atorvastatin 80 mg tablet 80 mg PO QPM 10/10/21 04/18/24 04/23/23 History loratadine 10 mg tablet 10 mg PO DAILY PRN Allergic 10/10/21 04/18/24 Unknown History Symptoms fluticasone propionate 50 1 spray intranasal BID PRN Allergy 11/25/22 04/18/24 04/23/23 History mcg/actuation nasal Symptoms spray,suspension cyanocobalamin (vitamin B-12) 1,000 mcg PO DAILY 03/09/23 04/18/24 04/23/23 History 1,000 mcg tablet umeclidinium 62.5 mcg/actuation 1 inh inhalation DAILY 03/09/23 04/18/24 04/23/23 History blister powder for inhalation (Incruse Ellipta) diphenhydramine HCl 25 mg capsule 25 mg PO BEDTIME 02/11/24 04/18/24 Unknown History potassium chloride 10 mEq 10 meq PO BID 02/11/24 04/18/24 Unknown History capsule,extended release tramadol 50 mg tablet 50 mg PO TID PRN Pain 02/11/24 04/18/24 Unknown History Exam Pertinent Lab Results Pertinent Lab Results: Laboratory Tests 04/18/24 10:50 Sodium 143 Potassium 4.3 Chloride 112 H Carbon Dioxide 25 BUN 24 H Creatinine 1.37 Narrative Narrative: EKG 03/2024 Vent. Rate : 070 BPM Atrial Rate : 070 BPM P-R Int : 098 ms QRS Dur : 086 ms QT Int : 410 ms P-R-T Axes : -20 002 062 degrees QTc Int : 442 ms Sinus rhythm with short TX Otherwise normal ECG When compared with ECG of 12-APR-2023 17:11, Previous ECG has undetermined rhythm, needs review Nonspecific T wave abnormality, improved in Anterolateral leads ECHO 2022 Conclusions: - The left ventricular systolic function is normal. The calculated ejection fraction is 59% by biplane method. - There is mild tricuspid valve regurgitation. - Mild pulmonary hypertension is present. Assessment and Plan Assessment Anesthesia Assessment: Chart Reviewed Final Anesthetic Review Family History of Problems with Anesthesia: No History of Problems with Anesthesia: No Documented by User: Shantell Narayanan DO 04/29/24 10:19 [facility] Past Medical History Medical History (Updated 04/29/24 @ 09:52 by Dawna Milligan RN) Seizure History of blood transfusion Gastric lymphoma Orthostasis Moderate protein malnutrition Lymphoma malignant, large cell Anemia Abnormal CT of the abdomen Stomach cancer Kidney disease Asthma Family History Family history of problems with anesthesia: No Surgical History Surgical History History of esophagogastroduodenoscopy (EGD) Hx of colonoscopy Tubal ligation status History of bladder surgery History of cholecystectomy History of Problems with Anesthesia: No Social History Social History Household Members: Family Housing: Apartment Do you presently have visiting nurse or other home services: Yes Alcohol intake: never Patient Tobacco Use Status: Former Tobacco user Tobacco use type: Cigarette e-Cigarette/Vaping Use: Never Used Second Hand Smoke Exposure: No Use of substances other than those prescribed or required for medical reasons: No Advance Directives: No Advance Directives Information Provided: Yes Advance Directives Date on File: 02/12/20 Nutrition Risks: No Nutritional Risk Patient : No service: No 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al status: disabled 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: r handed Meds Allergies Allergy/AdvReac Type Severity Reaction Status Date / Time black pepper Allergy Intermediate Rash Verified 04/18/24 10:38 codeine [CODEINE] Allergy Intermediate RASH Verified 04/18/24 10:38 ibuprofen [From MOTRIN] Allergy Intermediate RASH Verified 04/18/24 10:38 Penicillins [PENICILLINS] Allergy Intermediate RASH Verified 04/18/24 10:38 pineapple Allergy Intermediate Rash Verified 04/18/24 10:38 Home Medications ?Medication ?Instructions ?Recorded ?Confirmed ?Last Taken ?Type albuterol sulfate 90 mcg/actuation 2 puff inhalation Q4H PRN 10/10/21 04/18/24 Unknown History aerosol inhaler Shortness Of Breath Or Wheezing atorvastatin 80 mg tablet 80 mg PO QPM 10/10/21 04/18/24 04/23/23 History loratadine 10 mg tablet 10 mg PO DAILY PRN Allergic 10/10/21 04/18/24 Unknown History Symptoms fluticasone propionate 50 1 spray intranasal BID PRN Allergy 11/25/22 04/18/24 04/23/23 History mcg/actuation nasal Symptoms spray,suspension cyanocobalamin (vitamin B-12) 1,000 mcg PO DAILY 03/09/23 04/18/24 04/23/23 History 1,000 mcg tablet umeclidinium 62.5 mcg/actuation 1 inh inhalation DAILY 03/09/23 04/18/24 04/23/23 History blister powder for inhalation (Incruse Ellipta) diphenhydramine HCl 25 mg capsule 25 mg PO BEDTIME 02/11/24 04/18/24 Unknown History potassium chloride 10 mEq 10 meq PO BID 02/11/24 04/18/24 Unknown History capsule,extended release tramadol 50 mg tablet 50 mg PO TID PRN Pain 02/11/24 04/18/24 Unknown History Exam Exam Date and Time: 04/29/24 1017 Height,Weight and Vital Signs: Height 5 ft Weight 50.519 kg Vital Signs Temperature 98.8 F 04/29/24 09:54 Pulse Rate 70 04/29/24 09:54 Respiratory Rate 16 04/29/24 09:54 Blood Pressure 120/67 04/29/24 09:54 Pulse Oximetry 99 04/29/24 09:54 Oxygen Delivery Method Room Air 04/29/24 09:54 Temperature 98.8 F 04/29/24 09:54 Pulse Rate 70 04/29/24 09:54 Respiratory Rate 16 04/29/24 09:54 Blood Pressure 120/67 04/29/24 09:54 Pulse Oximetry 99 04/29/24 09:54 Oxygen Delivery Method Room Air 04/29/24 09:54 Airway Mallampati Class: II TM Dist: >3cm Neck ROM: Full Loose/Missing/Broken Teeth: Yes (edentulous top jaw, several missing teeth in bottom jaw but nothing loose) Heart: S1S2 Lungs: CTAB Assessment and Plan Assessment Anesthesia Assessment: Anesthesia Plan Discussed and Chart Reviewed Final Anesthetic Review Family History of Problems with Anesthesia: No History of Problems with Anesthesia: No NPO: Yes ASA Class: III Final Preanesthetic Review: No Changes in Pt Med Stat, Meds/Allgs Chart Reviewed, Consent Obtained/Reviewed (fieldwork coordinator at bedside for translation) and Anes Risks/Benef Reviewed Patient Risk: Intermediate Procedure Risk: Low Anesthetic Plan Anesthetic Plan: MAC: and Agree w/ Assess. and Plan Disposition: Standard PACU
[2024-04-29] MEDS: Lactated Ringers 1,000 ML 100 ML IVCONT (10:20)
--- NOTE | 2024-04-29 10:48 | P.OP_ITS ---
Operative Note Operative Note Date of Service: 04/29/24 Narrative: Procedure: Esophagogastroduodenoscopy Endoscopist: Natalya Balderrama MD Indication: Gastric lymphoma Anesthesia Provider: Irvin Lopez Anesthesia Type: MAC EGD Procedure:?? The procedure, indications, preparation and potential complications were reviewed with the patient, who indicated understanding and gave written informed consent to proceed. A physical exam was performed. The endoscope was introduced through the mouth, and advanced to the second part of duodenum. The mucosa was carefully examined on slow withdrawal of the endoscope. The patient tolerated the procedure well. There were no immediate complications.? ? EGD Findings:? * Esophagus:? Normal mucosa noted in the entire esophagus. The Z line was at 36 cm. * Stomach:? In the distal body approximately along the greater curvature, the rugae converged in a star like formation to a white based ulcer measuring 16 mm with heaped edges. This is a known malignant ulcer 2/2 gastric lymphoma. Cold forceps biopsies were taken from the edges of the ulcer. In the antrum, there was diffuse erythema and petechiae with scant heme in a watermelon formation consistent with gastric antral vascular ectasia (GAVE). This was ablated using APC. * Duodenum:? Normal mucosa was noted in the whole of the examined duodenum. ? EGD Impressions:? * Normal esophageal mucosa * Malignant ulcer (biopsy) * GAVE (APC) * Normal duodenum ?? Recommendations:?? * Follow biopsy results. Our office will call or send a letter with results within 7-10 days. * Cont anti-secretory therapy * Management of gastric lymphoma as per Oncologist * Thrombocytopenia noted - will get US Abd to r/o underlying liver disease Above has been reviewed with the patient.
[2024-04-29 11:13] VITALS: BP 87/41; PULSE 70; RESP 18; TEMP 36.4; O2SAT 96
[2024-04-29 11:25] VITALS: BP 145/77; PULSE 72; RESP 16; O2SAT 99
[2024-04-29 11:40] VITALS: BP 152/80; PULSE 64; RESP 16; TEMP 36.4; O2SAT 96
== END 2024-04-29 13:13 | disposition home or self-care (01) ==
PROVIDERS: Nurse Practitioner; PCP Family Medicine; Visit Provider Internal Medicine
PROC: 0DJ08ZZ Inspection of Upper Intestinal Tract, Via Natural or Artificial Opening Endoscopic (ICD-10-PCS; CPT 43235; principal; 2024-04-29 12:10)
DX: K25.9 Gastric ulcer, unspecified as acute or chronic, without hemorrhage or perforation (principal); K31.819 Angiodysplasia of stomach and duodenum without bleeding; C85.99 Non-Hodgkin lymphoma, unspecified, extranodal and solid organ sites; D64.81 Anemia due to antineoplastic chemotherapy; E43 Unspecified severe protein-calorie malnutrition; Z68.21 Body mass index [BMI] 21.0-21.9, adult; D69.59 Other secondary thrombocytopenia; J45.909 Unspecified asthma, uncomplicated; Z92.21 Personal history of antineoplastic chemotherapy; Z87.891 Personal history of nicotine dependence; Z90.49 Acquired absence of other specified parts of digestive tract; Z98.51 Tubal ligation status
CPT/HCPCS: 43270; 43239; 36415; 85027; 88305; 88313; 88342; J1642; J2003; J2704

== ENCOUNTER → 2024-04-29 09:33 | Outpatient (BNV) | payer OTHER, SELFPAY | PROVIDERS: PCP Family Medicine; Visit Provider Internal Medicine | DX: K25.9 Gastric ulcer, unspecified as acute or chronic, without hemorrhage or perforation (principal); K31.819 Angiodysplasia of stomach and duodenum without bleeding; D69.6 Thrombocytopenia, unspecified | CPT/HCPCS: 43239; 43270 ==

== ENCOUNTER 2024-05-12 12:48 | Outpatient (REF) | payer OTHER, SELFPAY ==
[2024-05-12 14:35] LABS: Appearance Urine Clear; Color Urine Yellow; Glucose Urine UA Negative (Negative); Leukocyte Esterase Urine Trace (Negative); Nitrite Urine Negative (Negative); PH 7.5 (5.0-9.0); UMIC TRIGGER UACC YES; Urine Blood Negative (Negative); Urine Ketones Negative (Negative); Urine Protein Negative (Neg-Trace)
[2024-05-12 14:42] LABS: Bacteria Urine None Seen (None Seen); Hyaline Casts Urine 0-2 /LPF (0-2); RBC Urine 0-2 /HPF (0-2); Squamous Epithelial Cell Urine 0-2 /HPF (0-2); WBC Urine 0-5 /HPF (0-5)
== END 2024-05-12 12:49 | disposition home or self-care (01) ==
LOC: HO.CHCLNP 12:48
PROVIDERS: Visit Provider Family Medicine
DX: N39.46 Mixed incontinence (principal)
CPT/HCPCS: 81001

== ENCOUNTER 2024-05-21 12:07 | Outpatient (AMB) | payer OTHER, SELFPAY ==
[2024-05-21 12:18] VITALS: BP 134/68; PULSE 68; O2SAT 98; BMI 22.0
--- NOTE | 2024-05-21 12:18 | A.OFFVIS_ITS ---
Vital Signs 05/21/24 12:18 Height 5 ft Weight 112 lb 14.027 oz BMI 22.0 BP 134/68 Blood Pressure Location Lt brachial Position Sitting Pulse 68 Pulse Source Pulse Oximeter Pulse Oximetry (%) 98 Oxygen Delivery Method Room Air Intake Visit Reasons: s/p egd Intake Note: ESTABLISHED PATIENT Reason; s/p FU Changes/concerns? New onset of abd pain (epigastric) as well as chronic GERD which has not improved with omeprazole. Seasonal Retail Merchandiser Required: Yes Seasonal Retail Merchandiser Language: Family Practice Nurse Practitioner Services: Seasonal Retail Merchandiser Present Seasonal Retail Merchandiser Name: Sarah [id number] + ISIAH Sethi LM Information Interpreted: non-clinical & clinical Accompanied by: Self / Same As Patient Allergies black pepper Allergy (Intermediate, Verified 05/21/24 12:19) Rash codeine [CODEINE] Allergy (Intermediate, Verified 05/21/24 12:19) RASH ibuprofen [From MOTRIN] Allergy (Intermediate, Verified 05/21/24 12:19) RASH Penicillins [PENICILLINS] Allergy (Intermediate, Verified 05/21/24 12:19) RASH pineapple Allergy (Intermediate, Verified 05/21/24 12:19) Rash HPI Comments Details: This is a 77y.o F with 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 To Recap: pt was seen in hospital by GI for abd pain, N,V, unintentional weight loss x [address] scan suggestive of greater curvature mass with lymphadenopathy. EGD 11/27/22 (Dr Caldwell): Stomach: A large polypoidal mass with central ulceration in the gastric body along the greater curvature extending from 36 to 58 cms and covering 75% of the gastric circumference. Moderate diffuse gastric erythema. Biopsies were obtained from the antrum to check for H pylori. Path: A. Stomach, antrum, biopsy: Antral-type mucosa within normal limits; no Helicobacter organisms seen. B. Stomach, mass, biopsy: Diffuse Large B-cell Lymphoma, non-germinal center type. Staging PET 01/16/23: ABDOMEN AND PELVIS: The stomach is abnormal. Marked mural thickening associated with intense FDG avidity is noted at the fundus and body of the stomach extending along both the greater as well as the lesser curvatures. The focus of dominant mural thickening measures approximately 2.6 cm with SUV max of 20.7 (104/223). There is no evidence of any gastric obstruction present. The pylorus of the stomach appear unremarkable. Corresponding to previously documented lobulated solid-appearing soft tissue confluent masses along the lesser curvature of the stomach in the region of the gastrohepatic ligament and adjacent part of the common hepatic artery show intense tracer avidity. The dominant solid mass seen at the level of the common hepatic artery measures approximately 4.2 x 2.1 cm with SUV max of 45.4 (115/223), most consistent with extensive local/regional lymph node disease extension. There are no additional tracer avid lymph nodes identified within the retroperitoneum or mesentery or pelvis or groin. Specific note is made of intense focal FDG avidity associated with mural thickening involving cecum and proximal ascending colon with SUV max of 11.2 (150/223), may also represent additional sites of disease involvement. Follow-up direct visualization/colonoscopy may be considered for further confirmation, if clinically appropriate. 03/09/23: s/p x3 cycles of felix-R-CHP. Course complicated by syncopal episode 2 weeks ago in the setting of pancytopenia. This was initially attributed to BM suppression from chemo however counts cont to decline this week as well. Pt received x2u PRBC transfusion on 03/07 after Hb dropped to 6.8. Currently, main CC is loss of appetite with early satiety, nausea and regurgitation. Reports has not been able to eat anything more than a couple of sips or bites or it comes back up. From chart review appears to have had weight loss of 20lbs in just the last 2 months. Last abd imaging is from Jan and at that time, no evidence of obstruction. 09/05/23: Seen in follow up. Was unable to undergo colo 04/2023 to investigate abnormal PET scan due to severe pancytopenia. Since then has completed chemoXRT. Last XRT session 08/10/23 ([facility]). [place] of disease in stomach markedly diminished based on most recent PET in May 2023 but R colon cont to light up. 1.There is mild FDG activity present in the greater curvature of the stomach in the region of intensely increased FDG activity present on the 01/16/2023 PET/CT. This is nonspecific, but because it is in the region of intensely increased FDG activity on the prior study, it is suspicious for residual lymphoma. Most of the other intensely FDG avid foci present on 01/16/2023 are completely resolved with the exception of activity in the right colon region which persists. The latter could be residual malignancy or physiological bowel uptake. Using the 5 point Deauville scale, this patient would be classified as a Deauville score of 4. 2. Diffuse osseous FDG activity is likely due to bone marrow stimulating chemotherapy such as Neulasta. Clinical correlation is recommended. 3. No additional abnormalities suspicious for other metastatic or malignant lesions are noted. 4. Vascular calcifications including coronary. 12/21/23: Unfortunately pt thought she had procedures today so had prepped. No GI issues today. Feels better than 3 months ago. Needs PEG prep refilled. 01/22/24: GAVE gastric ulcer Colonoscopy Findings: diverticulosis colon polyp internal hemorrhoids A. Duodenum, biopsy: Duodenal mucosa within normal limits; preserved villous architecture and no increased intraepithelial lymphocytes seen. B. Stomach, antrum, biopsy: Gastric antral mucosa with reactive gastropathy; negative for Helicobacter pylori, intestinal metaplasia and dysplasia. C. Stomach, greater curvature, biopsy: Gastric body mucosa with PPI effect; negative for Helicobacter pylori, intestinal metaplasia and dysplasia. D. Stomach, ulcer, mid body, biopsy: Gastric antral and body mucosa with reactive gastropathy, mild active gastritis and reactive epithelial change consistent with change adjacent to ulcer; negative for Helicobacter pylori, intestinal metaplasia and dysplasia. E. Stomach, lesser curvature, biopsy: Gastric body mucosa with PPI effect; negative for Helicobacter pylori, intestinal metaplasia and dysplasia. F. Colon, cecum, biopsy: Colonic mucosa within normal limits; negative for active, chronic or microscopic colitis. G. Terminal ileum, biopsy: Ileal mucosa within normal limits; negative for active or chronic ileitis. H. Colon, ascending, polypectomy: Clinically polypoid colonic mucosa noted; negative for a hyperplastic or neoplastic process. I. Colon, ascending, biopsy: Colonic mucosa within normal limits; negative for active, chronic or microscopic colitis. J. Colon, left, biopsy: Colonic mucosa within normal limits; negative for active, chronic or microscopic colitis. 02/11/24: Results of the EGD/colo reviewed with the pt. Images of the endoscopy personally reviewed as well as reviewed with the endoscopist and ulcer noted on most recent EGD appears to be in a different location compared to the prev one (incisura vs greater curvature) however could also be 2/2 angle of the scope. Bx benign vs nondiagnostic. 04/29/24: * Normal esophageal mucosa * Malignant ulcer (biopsy) * GAVE (APC) * Normal duodenum Path: Labeled gastric ulcer , biopsy: Gastric antral mucosa with gastritis with active ulcer, reactive changes, hemosiderin, and ectatic vessels; negative for H. pylori, intestinal metaplasia and dysplasia; no evidence of lymphoma. 05/21/24: Seen in follow up. REviewed with the pt that on endoscopic appearance, ulcer appears much smaller. Bx negative vs non diagnostic. Pt herself reports no issues with tolerating diet, good appetite. Only complaint is L sided cramping when she is constipated. Sometimes has 3-4 days without BM. Feels stool ball frequently gets impacted. [facility] Medical History Seizure History of blood transfusion Gastric lymphoma Orthostasis Moderate protein malnutrition Lymphoma malignant, large cell Anemia Abnormal CT of the abdomen Stomach cancer Kidney disease Asthma Surgical History History of esophagogastroduodenoscopy (EGD) Hx of colonoscopy Tubal ligation status History of bladder surgery History of cholecystectomy Social History Household Members: Family Housing: Apartment Do you presently have visiting nurse or other home services: Yes Alcohol intake: never Patient Tobacco Use Status: Former Tobacco user Tobacco use type: Cigarette e-Cigarette/Vaping Use: Never Used Second Hand Smoke Exposure: No Advance Directives Date on File: 02/12/20 service: No 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al status: disabled 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: r handed Review of Systems Const All systems reviewed & are unremarkable except as noted in HPI and below Physical Exam Vital Signs: Last Vital Signs Pulse 68 05/21/24 12:18 BP 134/68 05/21/24 12:18 Pulse Ox 98 05/21/24 12:18 Oxygen Delivery Method Room Air 05/21/24 12:18 BMI result Body Mass Index 22.0 No apparent distress Nonicteric Abdomen soft, nondistended Alert and oriented x3, normal gait Assessment & Plan Assessment & Plan (1) Gastric ulcer: Code(s): K25.9 - Gastric ulcer, unspecified as acute or chronic, without hemorrhage or perforation Category: Medical (2) Gastric lymphoma: Code(s): C85.99 - Non-Hodgkin lymphoma, unspecified, extranodal and solid organ sites Category: Medical (3) Constipation: Code(s): K59.00 - Constipation, unspecified Category: Medical Plan 1. Gastric lymphoma/gastric ulcer Reviewed that appears much smaller on endoscopic eval. Bx are either nondiagnostic vs negative. Will defer PET to her oncologist. Cont PPI Also had GAVE for which APC was done. If anemia worsens in future, can repeat as needed. 2. Constipation Assoc with fecal impaction based on description Plan: - GLycerin supp x 2 - can repeat as needed to help disimpact - Bisacodyl 2 tabs BID + miralax BID to be taken if no BM > 2 days - Otherwise, should stay on once daily miralax Follow up as needed. Medications: New bisacodyl 10 mg (2 x 5 mg) PO BID 2 days 8 tabs 1RF polyethylene glycol 3350 (Miralax) increase to twice a day, if no bowel movement for 2 days 17 grams PO DAILY 238 grams 1RF glycerin (child) 2 supp [place] DAILY 7 days 12 ea 1RF Coding Level of Care Code Est Pt Level 4 (91163) Diagnoses Gastric ulcer K25.9 Gastric lymphoma C85.99 Constipation K59.00
== END 2024-05-21 13:16 | disposition home or self-care (01) ==
PROVIDERS: PCP Family Medicine; Visit Provider Internal Medicine
DX: K25.9 Gastric ulcer, unspecified as acute or chronic, without hemorrhage or perforation (principal); C85.99 Non-Hodgkin lymphoma, unspecified, extranodal and solid organ sites; K59.00 Constipation, unspecified
CPT/HCPCS: 99214

== ENCOUNTER → 2024-05-21 12:07 | Outpatient (BNVA) | payer OTHER, SELFPAY | PROVIDERS: PCP Family Medicine; Visit Provider Internal Medicine | DX: K25.9 Gastric ulcer, unspecified as acute or chronic, without hemorrhage or perforation (principal); K59.00 Constipation, unspecified; C85.99 Non-Hodgkin lymphoma, unspecified, extranodal and solid organ sites | CPT/HCPCS: 99212 ==

== ENCOUNTER 2024-07-21 08:39 | Outpatient (AMB) | payer OTHER, SELFPAY ==
--- NOTE | 2024-07-21 08:53 | A.OFFVIS_ITS ---
Intake Visit Reasons: Urinary incontinence Intake Note: New Patient presents for initial visit for urinary incontinence Urology Medications: none Blood Thinner: none PVR: 0ml's Regrinder Required: Yes Regrinder Name: Christy [id number] Accompanied by: Self / Same As Patient Allergies black pepper Allergy (Intermediate, Verified 07/21/24 09:21) Rash codeine [CODEINE] Allergy (Intermediate, Verified 07/21/24 09:21) RASH ibuprofen [From MOTRIN] Allergy (Intermediate, Verified 07/21/24 09:21) RASH Penicillins [PENICILLINS] Allergy (Intermediate, Verified 07/21/24 09:21) RASH pineapple Allergy (Intermediate, Verified 07/21/24 09:21) Rash Medication List - Last Reconciled 07/21/24 by ELDA Carlton- albuterol sulfate 90 mcg/actuation 2 puffs inhalation Q4H PRN atorvastatin 80 mg PO QPM bisacodyl 10 mg (2 x 5 mg) PO BID 2 days calcium carbonate-vitamin D3 600 mg-10 mcg (400 unit) (Calcium 600 + D(3)) 1 tab PO BID cyanocobalamin (vitamin B-12) 1,000 mcg PO DAILY diphenhydramine HCl 25 mg PO BEDTIME ferrous gluconate 324 mg PO DAILY fluticasone propionate 50 mcg/actuation 1 spray intranasal BID PRN glycerin (child) 2 supp IA DAILY 7 days loratadine 10 mg PO DAILY PRN midodrine 5 mg PO TID omeprazole 20 mg PO BID ondansetron 8 mg PO Q8H PRN polyethylene glycol 3350 17 grams PO DAILY polyethylene glycol 3350 (Miralax) 17 grams PO DAILY potassium chloride ER 10 mEq PO BID sennosides-docusate sodium 8.6-50 mg (Stool Softener-Stimulant Laxative) 8.6 - 50 tabs PO DAILY sucralfate 10 mL PO TID tramadol 50 mg PO TID PRN umeclidinium 62.5 mcg/actuation (Incruse Ellipta) 1 inh inhalation DAILY HPI Comments Details: Delmy is a very pleasant 79-year-old Danish-speaking female patient was Dr. Gutierrez. She has a past medical history of seizures, gastric lymphoma, lymphoma malignant large cell anemia, kidney disease, and asthma. She presents to the office today as a new patient for urge incontinence. In discussion with the patient today she reports following up with her PCP and discussing symptoms of urge incontinence she continues to experience. She reports symptoms have been present for the last 3-6 months. Unable to obtain urine for urinalysis today as patient unable to void however PVR 0 mL. The patient's obstetric history of five vaginal deliveries is noteworthy. We discussed at length potential causes of urge incontinence. We also discussed further treatment options and risks and benefits of these treatment options. She otherwise denies hematuria, dysuria, foul smelling urine, changes to urinary stream, flank pain, fever, and or chills. Plan An ultrasound of the kidneys and bladder will be ordered to evaluate the patient's anatomical status and rule out other urinary issues. The primary management options for urinary incontinence, including pelvic floor physical therapy and medication, were discussed. Consideration of urodynamic testing was presented to facilitate precise treatment planning. The patient understood the treatment options available and will decide on the initial approach following ultrasound results. A follow-up discussion will be scheduled subsequently. Patient was informed and verbally consented to the use of an ambient scribe for clinic note documentation during this visit. Discussion Notes I discussed with the patient the probable diagnosis of urinary incontinence, exacerbated by potential pelvic floor weakness. Treatment options, including pelvic floor physical therapy, pharmacotherapy, and urodynamic evaluation, were reviewed with the patient. I detailed the benefits of each approach and explained the diagnostic measures, such as the planned ultrasound and optional urodynamics, addressing any of the patient's concerns. The possibility of starting medication while awaiting therapy was also considered. Patient Instructions - Schedule an ultrasound of the kidneys and bladder as ordered. - Review the pamphlet on urodynamic testing provided for further understanding. - Attend scheduled follow-up appointment to discuss ultrasound results and begin chosen therapy. - Monitor urinary symptoms and note any changes or worsening. [facility] Medical History Seizure History of blood transfusion Gastric lymphoma Orthostasis Moderate protein malnutrition Lymphoma malignant, large cell Anemia Abnormal CT of the abdomen Stomach cancer Kidney disease Asthma Surgical History History of esophagogastroduodenoscopy (EGD) Hx of colonoscopy Tubal ligation status History of bladder surgery History of cholecystectomy Social History Household Members: Family Housing: Apartment Do you presently have visiting nurse or other home services: Yes Alcohol intake: never Patient Tobacco Use Status: Former Tobacco user Tobacco use type: Cigarette e-Cigarette/Vaping Use: Never Used Second Hand Smoke Exposure: No Advance Directives Date on File: 02/12/20 service: No 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al status: disabled 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: r handed Review of Systems Eyes Reports no additional complaints ENT Reports no additional complaints Card Reports as per HPI Resp Reports as per HPI GI Reports as per HPI Reports as per HPI Musc Reports no additional complaints Neuro Reports no additional complaints Psych Reports no additional complaints Endo Reports no additional complaints Sampson/Lymph Reports as per HPI Aller/Immun Reports as per HPI Physical Exam Const General: cooperative, healthy appearing, comfortable, no acute distress, well developed, alert and awake Orientation/consciousness: patient oriented x3 Limitations: language barrier HEENT Head: Yes normal to inspection, Yes normocephalic and Yes atraumatic Ears: hearing grossly normal bilaterally Eyes General: appearance normal, both eyes and all related structures Neck Neck: Yes normal visual inspection and Yes trachea midline Chest Chest palpation & inspection: normal inspection of the chest Resp Effort & Inspection: normal respiratory effort and able to speak in complete sentences Cardio Rate: regular rate GI Inspection: Yes normal to inspection General: Yes no CVA tenderness Back/Spine/Pelvis Back: no CVA tenderness Skin General skin exam: no rashes or lesions noted Neuro General: patient oriented x3 Extrem General: Yes normal to inspection Psych Appearance: grossly normal and well kempt Mental Status: mental status grossly normal Speech and movement: Normal speech and movement present and Clear speech present Affect: normal affect Attitude: cooperative Thought process: Normal thought process present Thought content: Normal thought content present Insight: Fair insight present (Psych) Judgement: Fair judgement present (Psych) Office Procedures Post Void Residual Post Residual Void Post Void Residual (PVR): 0 64727-Fttt Void Residual by ultrasound Assessment & Plan Assessment & Plan (1) Urinary incontinence, urge: Code(s): N39.41 - Urge incontinence Category: Medical Plan Unable to obtain urine for urinalysis however PVR 0 mL. We discussed at length potential causes of urge incontinence and further treatment options and risks and benefits of these treatment options. Will obtain retroperitoneal ultrasound for further assessment evaluation. Start Myrbetriq as discussed and prescribed. We discussed bladder triggers/irritants. Follow-up in 1-3 months with imaging and PVR to be completed prior; or sooner with any issues, concerns, and or questions. Orders: Orders AMB Urinalysis Automated Today Z13.9 - Encounter for screening, unspecified AMB Post Void Residual by ultrasound Today N39.0 - Urinary tract infection, site not specified US retroperitoneal comp Today N39.41 - Urge incontinence Medications: New mirabegron ER (Myrbetriq) 25 mg PO DAILY 30 days 30 tabs 3RF N32.81 - Overactive bladder, R35.1 - Nocturia, R39.15 - Urgency of urination Patient Instructions: The patient had an opportunity to ask questions regarding the treatment plan. All questions were answered. Physical exam, labs, and imaging were discussed and reviewed in detail. As well as risks, benefits, and discussion of treatment choices. No major barriers to understanding were identified. The patient expressed understanding and agreement with the above treatment plan. The patient was made aware they should contact our office by phone for worsening of their current condition, the appearance of new symptoms, or with any questions or concerns. Compliance is encouraged with any medications and follow up testing that is ordered. It is a privilege to be allowed the opportunity to participate in? your urological care.? Again, if you have any questions or concerns If you have any questions or concerns please do not hesitate to contact me. The office is [phone]. This note is constructed using voice recognition software. While every effort has been made to ensure accuracy steam shovel operating engineer errors may have been included. Yours sincerely, PETER Carlton Coding Level of Care Code New Pt Level 4 (40263) Diagnoses Urinary incontinence, urge N39.41 CPT Codes Post Residual Void - PVR CPT Code: 75477-Kppd Void Residual by ultrasound ([id number])
--- OUTSIDE RECORDS SUMMARY | 2024-07-21 08:58 | XMS_ITS | Data Portability ---
Author Organization bright box [facility], In in - [facility] Address [address] [place] [id number] Care Team Providers Care Cloth Sponger Name Role Phone HIM CCA OTHER Assessment Encounter Date Assessment Date Assessment LastModified by Organization Details LastModified Time 10/25/2023 10/25/2023 I provided real -time medical direction via phone for this encounter and was available for additional phone-based assistance as needed. I have reviewed and agree with the Assessment and Plan as documented by the Worm Farmer. Patient given the opportunity to ask questions. Our service contacted for an assessment of: a rash As per above, patient has a rash on the neck for several days. Is pruritic. Denies any new medications, exposures to new environmental toxins, creams, lotions, soaps, etc. No new pets or animals in the house. Per certified physical therapist assistant on the scene, VSS. Non-toxic. Please see uploaded pictures. Impression: Likely eczema Plan: For now - hydrate, use usual soap and use usual lotion liberally to the area. Can try hydorcortisone cream. [email or web address] Not available 10/25/2023 14:20:48 Plan of Treatment Reminders Order Date Submit Date Provider Last Modified By Organization Details Last Modified Time Details Appointments None recorded. Lab BMP, serum or plasma [email or web address] [facility], [address] [place] [address], [phone], 21:45:00 cmp, whole blood + tosin [address], [address], 14:05:12 Referral None recorded. Procedures None recorded. Surgeries None recorded. Imaging None recorded. Medication Orders furosemide 10 mg/mL injection syringe 2023 024 [email or web address] Not available 12:49:04 Patient TargetsNo targets recorded. Patient InstructionsNo instructions recorded. Reason for Referral None Reported. Results Created Date Observation Date Name Description Value Unit Range Abnormal Flag Note LastModifiedBy Organization Detail LastModifiedTime 06/14/19 24 06/14/2023 cmp, whole blood + picco lo BUN 10 Not Available [facility] [address], [address], 06/14/2023 12:48:42 06/14/19 24 06/14/2023 cmp, whole blood + picco lo CRE 0.8 Not Available [facility] [address], [address], 06/14/2023 12:48:42 06/14/19 24 06/14/2023 cmp, whole blood + picco lo GLU 101 Not Available [facility] [address], [address], 06/14/2023 12:48:42 06/14/19 24 06/14/2023 cmp, whole blood + picco lo K+ 4.6 Not Available [facility] [address], [address], 06/14/2023 12:48:42 06/14/19 24 06/14/2023 cmp, whole blood + picco lo Na+ 145 Not Available [facility] [address], [address], 06/14/2023 12:48:42 Result Notes None recorded. Medical [...] Updated DateTime 3 18 /min 88 /min 27022.3 6 g 99 % 99 % 98.4 [degF] 99 mm[Hg] 66 mm[Hg] Not Available [facility] - production 3 13:46:08 Date Recorded Respiratory rate Body weight Body height Heart rate Oxygen saturation Oxygen saturation in Arterial blood by Pulse oximetry Body temperature Systolic blood pressure Diastolic blood pressure Provider Name and Address Organization Details Last Updated DateTime 4 16 /min 212116. 776 g 152.4 cm 83 /min 99 [...] /min 98 % 98 % 97.6 [degF] 31558.1 6 g 132 mm[Hg] 78 mm[Hg] Not Available [facility] - production 4 11:32:10 Date Recorded Body weight Heart rate Respiratory rate Body temperature Oxygen saturation Oxygen saturation in Arterial blood by Pulse oximetry Systolic blood pressure Diastolic blood pressure Provider Name and Address Organization Details Last Updated DateTime 4 88093.5 68 g 82 /min 16 /min 98.2 [degF] 99 % 99 % 104 mm[Hg] 62 mm[Hg] Not Available [facility] - production 4 14:18:31 Social History None recorded. Functional Status None recorded. Mental Status None recorded. Family History Nothing Reported. Medical History No medical history recorded. Gynecological HistoryNo gynecological history recorded. Obstetrics History GPAL:G 0 P 0 0 0 0 Past Encounters Encounter ID Performer Location Encounter Start Date Encounter Closed Date Diagnosis/Indication Diagnosis SNOMED-CT Code Diagnosis ICD10 Code Diagnosis Note [id number] Pelon Fuentes MD [facility] - [facility] [address] [place] [id number] 03/23/2023 13:46:05 03/25/2023 15:39:55 Hypotensive episode 41844327 I95.9 Family reports episode of hypotensio n yesterday before taking blood pressure medication (midodrine ). Denies need for visit today and reports patient is at her baseline. As such, labs deferred. Recommende d close collaborat ion with primary team. [id number] Kamila Pinto MD Main - [facility] [address] [place] [phone] 06/14/2023 12:12:19 06/14/2023 21:49:37 Edema of lower extremity 797411674 R60.0 77 year old female being evaluated for bilateral lower extremity swelling for the last 3 days. Patient reports was previously on a diuretic but was discontinu ed for unclear reasons. Patient reports no respirator y symptoms, but having pain and discomfort with walking due to the swelling. Exam notable for normal vital signs, clear lungs, and bilateral lower extremity swelling to above ankles. POC CMP unremarkab le. Presentati on consistent with lower extremity swelling of unclear etiology, in the setting of no longer being on a home diuretic. Due to discomfort and normal creatinine on POC labs today, will administer IV lasix 20 mg today. Will recommend 48h follow up to reassess volume status. I have reviewed and agree with the assessment and plan as documented by the certified physical therapist assistant. I provided real-time medical direction for this encounter and was immediatel y available to provide additional phone-base d assistance as needed. We discussed the diagnostic uncertaint y of home visits and associated risks. We discussed the need to seek care urgently/e mergently in the setting of any new or worsening symptoms. Congestive heart failure 09046306 I50.9 [id number] Cyrus Conteh MD Main - [address] [phone] 06/16/2023 11:31:55 06/18/2023 13:06:21 Edema of lower extremity 301317367 R60.0 As noted, we were called to see this patient regarding concerns of edema. Evaluation in the field was performed by my certified physical therapist assistant colleague, as noted above, I provided real-time direction and supervisio n for this visit. The evaluation revealed reassuring vitals, improved edema from previously , per patient, and labs suggestive of possible mild hypovolemi a/hypernat remia. Impression :Still with some edema but with labs arguing against need for diuresis. Given her cancer, edema likely very multifacto rial. Suspect she is intravascu larly low and has low oncotic pressure. Given the concern is for edema, will not give fluids but did not diurese further. advised to elevate legs and counseled on warning signs. Suspect the lactate is not reflective of tissue hypoxia and may be due to hypovolemi a and reduced renal clearance or the cancer. Plan:BMPSu pportive care, no diuresis Primary care, considerch michael in call on Sunday, encourage PO intake Dispositio n:We discussed the diagnostic uncertaint y of home visits and the risk associated with this. In this case, the patient and I felt this to be an acceptable and reasonable amount of risk given the benefit of avoiding an ED visit. We discussed the need to seek care urgently/e mergently in the setting of any new or worsening serious symptoms, particular ly fever, LH, prostratio n. [id number] Linnette Sommer MD Main - [facility] [address] [place] [phone] 10/25/2023 14:18:25 10/25/2023 20:34:21 Pruritic rash [id number] L28.2 Health Concerns Section Related Observation LastModified by Organization Detai ls LastModified Time None Recorded Concern Status LastModified by Organization Details LastModified Time None Recorded Advance Directives Directive None Recorded Payers Encounter Date Sequence Insurance Name Policy Number Policy Funez Covered Member ID Funez Member ID Guarantor Name 03/23/2023 1 [employer] - DOS ON OR AFTER 2022 - DUAL ELIGIBLE - HALFWAY OPTIONS AND ONE CARE (MEDICARE REPLACEMENT/ADV ANTAGE - HMO) Delmy Ann [id number] Delmy Epps Ann 06/14/2023 1 [employer] - DOS ON OR AFTER 2022 - DUAL ELIGIBLE - HALFWAY OPTIONS AND ONE CARE (MEDICARE REPLACEMENT/ADV ANTAGE - HMO) Delmy Ann [id number] Delmy Epps Ann 06/16/2023 1 [employer] - DOS ON OR AFTER 2022 - DUAL ELIGIBLE - HALFWAY OPTIONS AND ONE CARE (MEDICARE REPLACEMENT/ADV ANTAGE - HMO) Delmy Ann [id number] Delmy Epps Ann 10/25/2023 1 [facility] [employer] - DOS ON OR AFTER 2022 - DUAL ELIGIBLE - HALFWAY OPTIONS AND ONE CARE (MEDICARE REPLACEMENT/ADV ANTAGE - HMO) Delmy Ann [id number] Delmy Epps Ann Notes Date Note Type Note Provider [...] ..................... ..................... ..................... ..................... ..................... ..................... ............... Worm Farmer Note From Andrae Bell: Pt has no complaints today. Is eating. Seems to be confusion as to why the visit according to TECHNOLOGY APPLICATIONS ENGINEER and PT. They sts the RN that [...] Lungs clear bilaterally. Pt sts feels great. [facility] [place] and pt educated on signs indicating the ER. ..................... ..................... ..................... ..................... ..................... ..................... ............... Disposition: Fulfilled Pelon Fuentes MD [address] [facility],[address], [place], [address], [employer] [facility] [employer] 03/23/2023 13:47:59 06/14/2023 text/html HPI: Swelling of [...] advised of disposition, no appt availability in [facility]. Agrees to [facility] for eval. ..................... ..................... ..................... ..................... ..................... ..................... ............... [facility] Nurse Triage Notes (Padmini Copeland): Comments: Reviewed HPI- no further info needed Suzette YOUNG ..................... ..................... ..................... ..................... ..................... ..................... ............... Worm Farmer Note From Shmuel Doe[facility] [...] and tender to palpation. Pictures taken for [facility] review. Vital signs taken and WNL. Pt afebrile. Consulted with [facility] who advised drawing istat labs and establishing iv for lasix administration. I stat labs drawn as follows: Na 145, K 4.6, Cl 106, iCa 1.13, TCO2 27, Glu 101, BUN 10, Creatinine 0.8, Hct 28, Hb 9.5 Anion gap 18. Consulted with [facility] who ordered 20 mg IV lasix administered on scene and follow up scheduled for 48 hours later. Patient education provided. [facility] Lab Orders: cmp, whole blood + tosin: Performed ..................... ..................... ..................... ..................... ..................... ..................... ............... Disposition: Fulfilled Kamila Pinto MD [address] [facility],[address], [place], [phone], [facility] CECIL MCNAMARA 06/14/2023 14:05:23 06/16/2023 text/html HPI: Edema on LE, treated by [facility] on 06/14 with IV Lasix and requires a F/u in 48 hrs. Member is a 77-year-old Cape Verdean speaking female, on [facility] Pall[facility] services for diagnosis of Malignant Neoplasm of Stomach in the setting of 40-pound weight loss (155 to 110 lb). Other DX are COPD, Stage 3 CKD, vertigo, UTI, bilateral cataract, OA, gastric lymphoma, carpel tunnel syndrome and is on Chemo every 2 weeks at [facility] for 06/19/23, ..................... ..................... ..................... ..................... ..................... ..................... ............... [facility] Nurse Triage Notes (León Pina): Comments: No further information required to process visit. 06/16 - Outreach call to the member for a wellness check - Member reports lower extremity swelling - S/S remain the same - Follow up visit requested - Ean YOUNG ..................... ..................... ..................... ..................... ..................... ..................... ............... Worm Farmer Note From Andrae Bell: Pt f/u from 06/14 visit. Pt sts has had improvement to the edema in lower extremities. Pt denies fever pain sob or CP. baseline vitals assessed. POc bloodwork unremarkable. Lungs clear afebrile. [facility] contacted and advised to keep legs elevated and monitor. Pt education on signs indicating the ER. ..................... ..................... ..................... ..................... ..................... ..................... ............... Disposition: Fulfilled Cyrus Conteh MD [address] [facility],[address], [place], [phone], [place] 06/17/2023 21:45:06 10/25/2023 text/html HPI: 77yo female [...] ..................... ..................... ..................... ..................... ..................... ..................... ............... Worm Farmer Note From Andrae Bell: Pt co itching [...] follow up with pcp for referral to embroiderer. Pt advised to use hydrocortisone cream vs Benadryl. Pt education on signs indicating the ER. ..................... ..................... ..................... ..................... ..................... ..................... ............... Disposition: Fulfilled Linnette Sommer MD [address] [facility],[address], [place], [phone], [place] 10/25/2023 14:20:59 OBGyn Episode No OBEpisode recorded.
== END 2024-07-21 09:42 | disposition home or self-care (01) ==
LOC: HO.HUSH 08:39
PROVIDERS: PCP Family Medicine; Visit Provider Nurse Practitioner Family
DX: N39.41 Urge incontinence (principal)
CPT/HCPCS: 99204

== ENCOUNTER → 2024-07-21 08:39 | Outpatient (BNVA) | payer OTHER, SELFPAY | PROVIDERS: PCP Family Medicine; Visit Provider Nurse Practitioner Family | DX: N39.41 Urge incontinence (principal) | CPT/HCPCS: 51798; 99202 ==

== ENCOUNTER 2024-09-03 10:02 | Outpatient (REF) | payer OTHER, SELFPAY ==
--- NOTE | ~2024-09-03 | CT_ITS ---
CLINICAL HISTORY: Gastric lymphoma CT abdomen and pelvis with contrast Comparison: None Findings: No consolidation or effusion. Unremarkable solid organs. There are no abnormal findings in the gallbladder fossa. No urolithiasis. No bowel obstruction, pneumoperitoneum, or pneumatosis. The stomach, incompletely distended, is questionable concentric wall thickening proximally without definite ulceration. There is an indeterminate 1.2 x 0.9 cm celiac axis lymph node Pelvic contents unremarkable. Normal appendix. The bones are intact. IMPRESSION: Nonspecific gastric wall changes possibly related to the patient's noted lymphoma with an indeterminate celiac axis lymph node. Comparison with prior studies, if available, would be of value. If not, consider PET-CT to further evaluate This document has been electronically signed by: Jer Lucero MD on 09/05/2024 08:03:35
--- NOTE | ~2024-09-03 | CT_ITS ---
CLINICAL HISTORY: Gastric lymphoma, restaging CT chest with contrast Comparison: None Findings: The heart is normal size. The visualized thyroid and mediastinum are unremarkable. No consolidation or effusion. The bones are intact. IMPRESSION: 1. Unremarkable chest CT. This document has been electronically signed by: Jer Lucero MD on 09/05/2024 08:03:45
--- OUTSIDE RECORDS SUMMARY | 2024-09-03 11:01 | XMS_ITS | Encounter Summary ---
Author Organization [facility] Address [address] 7[address] [place] [address] Care Team Providers Care Collision Technician Name Role Phone Mis Gutierrez MD Primary Care Provider [phone] Reason for Visit * Reason Comments Med Refill Encounter Details Date Type Department Care Team ([facility] Contact Info) Description 10/30/2022 Refill [facility] [address] [place], [place] [phone] Mis Gutierrez MD [address] [place] [address] Social History Tobacco Use Types Packs/Day Years Used Date Smoking Tobacco: Never Alcohol Use Standard Drinks/Week Comments Never 0 (1 standard drink = 0.6 oz pur e alcohol) Comments Unknown Sex and Gender Information Value Date Recorded Sex Assigned at Female 03/06/2022 10:18 AM EDT Legal Sex Female 10:18 AM EDT Gender Identity Female 03/06/2022 10:18 AM EDT Sexual Orientation Choose not to disclose 2021 10:18 AM EDT COVID-19 Exposure Response Date Recorded In the last 10 days, have yo u been in contact with someone who was confirmed or suspected to have Coronavirus/COVID-19? No / Unsure 10/17/2022 10:35 AM EDT documented as of this encounter Plan of Treatment Upcoming Encounters Date Type Department Care Team ([facility] Contact Info) Description 09/25/2024 1:30 PM EDT Office Visit [facility] [address] [place], [place] [phone] Mis Gutierrez MD [address] [place] [phone] documented as of this encounter Visit Diagnoses Not on filedocumented in this encounter Care Teams Collision Technician Relationship Specialty Start Date End Date Mis Gutierrez MD [address] [place] [id number] PCP - General Family Medicine 12/31/20 Rowena Becerril MD Oncology 03/13/24 Natalya Balderrama MD Gastroenterology 03/13/24 documented as of this encounter
--- OUTSIDE RECORDS SUMMARY | 2024-09-03 11:01 | XMS_ITS | Encounter Summary ---
Author Organization [employer] Address [address] [facility] 7t [place] [address] Care Team Providers Care Tip Printer Name Role Phone Mis Gutierrez MD Primary Care Provider Reason for Visit * Reason Comments Med Refill Encounter Details Date Type Department Care Team ([facility] Contact Info) Description 08/28/2024 Refill [facility]EDS [address] [place], [place] [phone] Mis Gutierrez MD [address] [place] [address] Social History Tobacco Use Types Packs/Day Years Used Date Smoking Tobacco: Former Cigarettes 0.3 52 0 [birth year]/07/1965 - 05/07/2017 Passive Smoke Exposure: Never Smokeless Tobacco: Never Alcohol Use Standard Drinks/Week Comments Never 0 (1 standard drink = 0.6 oz pur e alcohol) Depression Answer Date Recorded Patient Health Questionnaire-9 Score 2 04/11/2024 Patient Health Questionnaire-9 Score 2 04/11/2024 Last PHQ-9: Questionnaire Data Not on file 1 06/12/2023 Housing Stability Answer Date Recorded What is your housing situation today? I have geovanny sotelo 12/26/[address] you li ve. Do you have problems with any of the following? None of the above 12/26/2023 Food Insecurity Answer Date Recorded Within the past 12 months, y ou worried that your food would run out before you got money to buy more: Never True 12/26/2023 Within the past 12 months,th e food you bought just didn't last and you didn't have enough money to get more: Never True Transportation Answer Date Recorded In the past 12 months, has l ack of transportation kept you from medical appts, meetings, work or from getting things needed for daily living? No 12/26/2023 Utilities Answer Date Recorded In the past 12 months, has t he electric, gas, oil or water company threatened to shut off services in your home? No 12/26/2023 Depression Answer Date Recorded Patient Health Questionnaire-2 Score 0 04/11/2024 Internet Access Answer Date Recorded Internet Access Q1 Yes 01/07/2024 Internet Access Q2 Not on file 01/07/2024 Comments Unknown Sex and Gender Information Value Date Recorded Sex Assigned at Female 03/06/2022 10:18 AM EDT Legal Sex Female 10:18 AM EDT Gender Identity Female 03/06/2022 10:18 AM EDT Sexual Orientation Choose not to disclose 2021 10:18 AM EDT documented as of this encounter Plan of Treatment Upcoming Encounters Date Type Department Care Team (Late st Contact Info) Description 09/25/2024 1:30 PM EDT Office Visit [facility] [address] [place] [address] Mis Gutierrez MD [address] [place] [address] documented as of this encounter Visit Diagnoses Not on filedocumented in this encounter Additional Health Concerns Assessment Noted Time PHQ-9 Depression Total Score: 2 04/11/20 24 1:10 PM EST documented as of this encounter Care Teams Tip Printer Relationship Specialty Start Date End Date Mis Gutierrez MD [address] [place] [address] PCP - General Family Medicine 12/31/20 Rowena Becerril MD Oncology 03/13/24 Natalya Balderrama MD Gastroenterology 03/13/24 documented as of this encounter
--- OUTSIDE RECORDS SUMMARY | 2024-09-03 11:01 | XMS_ITS | Encounter Summary ---
Author Organization [employer] Address [address] 7[address] [place] [address] Care Team Providers Care Meat Hostess Name Role Phone Mis Gutierrez MD Primary Care Provider [phone] Reason for Visit * Reason Comments Med Refill Encounter Details Date Type Department Care Team ([facility] Contact Info) Description 07/21/2022 Refill [facility] [address] [place], [place] [phone] Iveth Gomez MD [address] [place] [address] Gastroesophageal reflux disease, unspecified whether esophagitis present (Primary Dx) Social History Tobacco Use Types Packs/Day Years [...] suspected to have Coronavirus/COVID-19? No / Unsure 07/14/2022 1:26 PM EST documented as of this encounter Plan of Treatment Upcoming Encounters Date Type Department Care Team ([facility] Contact Info) Description 09/25/2024 1:30 PM EDT Office Visit [facility] [address] [place] [address] Mis Gutierrez MD [address] [place] [phone] documented as of this encounter Visit Diagnoses Diagnosis Gastroesophageal reflux disease, unspecified whether esophagitis present- Primary documented in this encounter Care Teams Meat Hostess Relationship Specialty Start Date End Date Mis Gutierrez MD [address] [place] [phone] PCP - General Family Medicine 12/31/20 Rowena Becerril MD Oncology 03/13/24 Natalya Balderrama MD Gastroenterology 03/13/24 documented as of this encounter
--- OUTSIDE RECORDS SUMMARY | 2024-09-03 11:01 | XMS_ITS | Clinical Summary ---
Author Organization [employer] Address [address] [facility] 7[address] [place] [address] Care Team Providers Care Flame Cutting Supervisor Name Role Phone Mis Gutierrez MD Primary Care Provider Allergies Active Allergy Reactions Criticality Noted Date Comments Codeine Rash High 12/26/2022 Ibuprofen Rash High 06/10/2010 Other reaction(s): unspecified Other reaction(s): rash, swelling Penicillins Rash High 06/10/2010 Other reaction(s): unspecified Other reaction(s): rash, swelling Other reaction(s): Unknown Other reaction(s): unspecified Pineapple Rash High 12/21/2023 Piper Rash High 12/21/2023 Medications Blood Pressure kitIndications:Hy potension, unspecified hypotension type 1 Units in the morning. 1 kit 023 Active dexAMETHasone (Decadron) 4 MG tablet Take 4 mg twice a day on days 2 and 3 of chemo 023 Active ondansetron ODT (Zofran-ODT) 8 MG disintegrating tablet Take 1 tablet by mouth every 8 (eight) hours if needed for nausea. 023 Active fludrocortisone (Florinef) 0.1 MG tablet Take 1 tablet by mouth 1 (one) time each day. 023 Active predniSONE (Deltasone) 20 MG tablet Take 3 tablets by mouth 1 (one) time each day. On days 1-5 of chemo Active Cholecalciferol (Vitamin D) 125 MCG (5000 UT) capsule Take 1 tablet by mouth in the morning. Active GaviLyte-G 236 g solution MIX WITH WATER PER PACKAGE. DRINK 240mls EVERY 10 MINUTES DIRECTED FOR COLONOSCOPY (SPLIT PREPARATION) UNTIL FECAL EFFLUENT IS CLEAR Active albuterol 108 (90 Base) MCG/ACT inhaler Inhale 2 puffs every 4 (four) hours. inhale 2 puffs by Inhalation route every 4 hours as needed 18 g Active Umeclidinium [place] (Incruse Ellipta) 62.5 MCG/ACT aerosol powder Inhale 1 puff Once per day. 30 each Active acetaminophen (Tylenol) 500 MG tablet Take 2 tablets (1,000 mg) by mouth every 8 (eight) hours if needed for mild pain. 30 tablet Active Calcium Carb-Cholecalcife rol 600-10 MG-MCG tablet Take 1 tablet by mouth 2 times daily. 180 tablet 1 Active omeprazole (PriLOSEC) [address] capsule Take 1 capsule (20 mg) by mouth 2 times daily. Do not crush or chew. 180 capsule 1 Active fluticasone (Flonase) 50 MCG/ACT nasal spray Administer 1 spray into each nostril 2 times daily. Shake gently. Before first use, prime pump. After use, clean tip and replace cap. 16 g Active cyanocobalamin (Vitamin B-12) 1000 MCG tablet Take 2 tablets (2,000 mcg) by mouth Once per day. 90 tablet 1 Active diphenhydrAMINE (BENADryl) 25 MG capsule Take 1 capsule (25 mg) by mouth if needed at bedtime for itching. 60 capsule Active albuterol (2.5 MG/3ML) 0.083% nebulizer solution INHALE 1 AMPULE USING A NEBULIZER EVERY 4 HOURS NEEDED 90 mL 2 Active sucralfate (Carafate) 1 GM/10ML suspension TAKE 10 ML BY MOUTH THREE TIMES DAILY 1000 mL 2 Active midodrine (Proamatine) 5 MG tablet TAKE 1 TABLET BY MOUTH THREE TIMES DAILY 90 tablet 3 024 Active ferrous gluconate (Fergon) 324 (38 Fe) MG tablet Take 1 tablet (324 mg) by mouth with breakfast. 90 tablet 1 024 Active polyethylene glycol, PEG, 3350 (MiraLax) 17 GM/SCOOP powderIndications :Constipation, unspecified constipation type Take 17 g by mouth Once per day. 527 g 2 024 Active senna-docusate sodium (Senokot-S) 8.6-50 MG tabletIndications :Constipation, unspecified constipation type Take 2 tablets by mouth if needed for constipation. 60 tablet 11 024 2024 Active traMADol (Ultram) 50 MG tabletIndications :Right hip pain TAKE 1 TABLET BY MOUTH EVERY 8 HOURS NEEDED FOR SEVERE PAIN FOR UP TO 28 DAYS 84 tablet Active tolterodine LA (Detrol LA) 4 MG 24 hr capsule Take 1 capsule (4 mg) by mouth Once per day. Do not crush, chew, or split. 30 capsule 2 025 2025 Active loratadine (Claritin) 10 MG tabletIndications :Constipation, unspecified constipation type TAKE 1 TABLET BY MOUTH EVERY DAY NEEDED FOR ALLERGIES 90 tablet 1 025 Active atorvastatin (Lipitor) 80 MG tablet TAKE 1 TABLET BY MOUTH EVERY DAY AT BEDTIME 90 tablet 1 025 Active triamcinolone (Kenalog) 0.5 % ointment APPLY 1 GRAM TOPICALLY TWICE DAILY 90 g 2 025 Active triamcinolone (Kenalog) 0.5 % ointment Apply topically 2 times daily. 90 g 2 024 2024 Discontinued Active Problems Problem Noted Date Diagnosed Date Gastric ulcer 05/12/2024 Mixed stress and urge urinary incontinence 05/12 Assessment & Plan (05/12/2024 1:02 PM EST): Ordering UA and referral to Urology for further evaluation. Prescribing Detrol LA for Sx. Relevant Medications Tolterodine LA (Detrol LA) 4 MG 24 hr Capsule TED (acute kidney injury) 04/11/2024 Assessment & Plan (04/11/2024 1:44 PM EST): Ordering lab work for further evaluation. Adult failure to thrive 03/11/2024 Right hip pain 01/03/2024 Assessment & Plan (03/14/2024 12:48 PM EST): Pt hasn't gotten her X-ray done. Assessment & Plan (01/03/2024 5:51 PM EDT): Chronic right hip pain. Previous Dx. Trochanteric bursitis. Pt was called from PT and has an appt scheduled. 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 Referral to Oral Maxillofacial surgeon and PT. F/u in one week. Relevant Medications Acetaminophen (Tylenol) 500 MG Tablet Rash and nonspecific skin eruption 10/26/2023 Assessment & Plan (01/03/2024 5:54 PM EDT): Pt has seen improvements with her rash due to medication prescribed. Relevant orders: -Triamcinolone (Kenalog) 0.5% ointment Assessment & Plan (10/26/2023 5:03 PM EDT): Pt was seen yesterday by [facility] and provided hydrocortisone. Rash continues to be itchy and red. Relevant orders: Triamcinolone (Kenalog) 0.5 % ointment Gastrointestinal hemorrhage 05/10/2023 Assessment & Plan (05/11/2023 8:57 AM EST): GIB pending GI. Protein-calorie malnutrition, unspecified severi ty 03/16/2023 Assessment & Plan (03/14/2024 12:53 PM EST): Pt has continued receiving her protein supplement. Pt gained 1 pound. Current weight 113. BP has improved and pt is experiencing less hypotensive episodes, Currently stable. F/u in 6 month Assessment & Plan (01/03/2024 5:59 PM EDT): Pt had gained 4 pounds. Bp is increasing. Assessment & Plan (05/10/2023 2:09 PM EST): Reports using nutritional supplementation and eating a little better. Assessment & Plan (03/16/2023 10:06 AM EST): Reports using nutritional supplementation and eating a little better. Abnormality of gait and mobility 03/16/2023 Assessment & Plan (05/10/2023 2:08 PM EST): Patient will benefit from commode use given she is confined to floor given abnormal gait and weakness in the setting of lymphoma and chemotherapy. Patient will benefit of commode use given she is confined to one level of the home that does not provide a toilet on that level Current weight: 105 lbs Assessment & Plan (03/16/2023 10:00 AM EST): Patient will benefit from commode use given she is confined to floor given abnormal gait and weakness in the setting of lymphoma and chemotherapy. Patient will benefit of commode use given she is confined to one level of the home that does not provide a toilet on that level Pt wt Wt Readings from Last 1 Encounters: 02/09/23 99 lb (44.9 kg) Diffuse large B-cell lymphoma of stomach 023 Overview (02/11/2023): ?? Following with [facility] Heme/Onc Assessment & Plan (02/11/2023 10:12 AM EDT): -Currently receiving chemotherapy, appt scheduled next week Feb 13, , & 12 -Continues with Ensure supplement drinks Hospital Bed documentation: Trochanteric bursitis, right hip 12/08/2022 Malignant neoplasm of stomach, unspecified locat ion 12/08/2022 Assessment & Plan (12/08/2022 10:18 AM EDT): Patient with recent diagnoses of stomach cancer. Oncology appointment scheduled for 12/15/22. Given limited supply of oxy while at [facility] which provides relief of symptoms. Will send refill of oxy for continued symptom relief. Weight loss 11/03/2022 Generalized abdominal pain 11/03/2022 Hypotension 11/03/2022 Assessment & Plan (05/12/2024 1:00 PM EST): Continue on current medications as prescribed. Follow up in 4 months. Assessment & Plan (04/11/2024 1:43 PM EST): Restart Midodrine, advised to take half a pill if she is nervous. Advised patient to increase water intake and salt into daily nutrition. Follow up for BP recheck. Follow up if Sx worsen prn. Assessment & Plan (03/16/2023 10:06 AM EST): Patient was hospitalized given hypotension and weakness, she was start on medications for hypotension. Reports she is well. Did not provide any BP readings and declined inperson appt for today. Repots that she has electrolyte labs that were ordered by Dr. Becerril. They were more concern about her DME need. Reviewed that she had had a visit with [facility] and that documentation was sent last month, I contacted DME specialist and inform about the situation. Assessment & Plan (02/11/2023 10:13 AM EDT): -Associated with weakness and lightheadedness. Currently improved following ED visit, although BP continues to be soft -Encouraged to stand up slowly from seated position, maintain adequate hydration status Breast cancer screening by mammogram 11/03/2022 Hypertensive renal disease 07/28/2021 Allergic rhinitis 03/01/2015 Assessment & Plan (01/03/2024 5:58 PM EDT): Relevant orders: -Diphenhydramine (BENADryl) 25 MG capsule Chronic obstructive lung disease 03/01/2015 Assessment & Plan (11/29/2023 5:12 PM EDT): Discussed medications and refills as needed. Relevant Medications Albuterol 2.5 MG/3 ML) 0.083% Nebulizer Solution Albuterol 108 (90 base) MCG/ACT inhaler Umeclidinium [place] (Incruse Ellipta) 62.5 MCG/ACT aerosol powder CKD (chronic kidney disease) stage 2, GFR 60-89 ml/min 03/01/2015 Essential hypertension 03/01/2015 Gastroesophageal reflux disease without esophagi tis 03/01/2015 Hyperlipidemia 03/01/2015 Impaired glucose tolerance 03/01/2015 Tobacco dependence syndrome 03/01/2015 Tubular adenoma of colon 03/01/2015 Psoriasis 03/01/2015 Resolved Problems Problem Noted Date Diagnosed Date Resolved Date Bilious vomiting with nausea 09/12/2022 02/11/2023 Assessment & Plan (09/12/2022 5:27 PM EDT): No fever/chills, no abdominal pain/distention, no diarhea, told to maintain well hydrated, continue with liquid diet for the next day, and transition to low fat/conditment diet for the next day Constipation 03/01/2015 02/11/2023 Encounters Date Type Department Care Team Description 08/28/2024 Refill [facility] [address] [place] [address] Mis Gutierrez MD 07/02/2024 Telephone [facility] [address] [place] [address] Mis Gutierrez MD Durable Medical Equipment 06/19/2024 Telephone [facility] [address] [place] [address] Mis Gutierrez MD Homecare Delivered (Scale : / 30 days ; 1 unit (s)) 06/05/2024 Refill [facility] [address] [place] [address] Mis Gutierrez MD Constipation, unspecified constipation type from Last 3 Months Immunizations Name Administration Dates Next Due Influenza High-dose Quadriva lent Preservative Free 03/20/2022 Influenza injectable quadriv alent IIV4 with preservative 05/03/2017,02/08/2015 Influenza, High Dose Seasona l, Preservative Free 02/20/2018 Influenza, IIV3, injectable 03/20/2022, 4,02/10/2011 Influenza, Split (incl. gonzalez fied surface antigen) 04/24/2013,01/15/2012 Influenza, Unspecified 03/31/2014,02/10/2011 Pfizer Covid-19 Vaccine 12+ 09/27/2021,,12/03/2020 Pfizer Covid-19 Vaccine 12+ gerber-sucrose (Hull Cap) 09/27/2021 Pneumococcal Conjugate PCV 13 05/31/2015 Pneumococcal Polysaccharide PPSV23 02/20/2018, Tdap 02/10/2011 Zoster, live 05/31/2015 Social History Tobacco Use Types Packs/Day Years Used Date Smoking Tobacco: Former Cigarettes 0.3 52 0 [birth year]/07/1964 - 05/07/2017 Passive Smoke Exposure: Never Smokeless Tobacco: Never Tobacco Cessation:Counseling Given: Not Answered Alcohol Use Standard Drinks/Week Comments Never 0 [...] not to disclose 2021 10:18 AM EDT Last Filed Vital Signs Vital Sign Reading Time Taken Comments Blood Pressure 112/65 05/12/2024 11:15 AM EST Pulse 65 05/12/2024 11:15 AM EST Temperature 36.3 ??C (97.3 ??F) 05/12/2024 10:[address] Respiratory Rate 12 05/12/2024 10:55 AM EST Oxygen Saturation 98% 05/12/2024 10:55 AM EST Inhaled Oxygen Concentration - - Weight 50.8 kg (112 lb) 05/12/2024 10:55 AM EST Height 152.4 cm (5') 05/12/2024 10:55 AM EST Body Mass Index 21.87 05/12/2024 10:55 AM EST Plan of Treatment Upcoming Encounters Date Type Department Care Team (Late st Contact Info) Description 09/25/2024 1:30 PM EDT Office Visit [facility] [address] [place] [address] Mis Gutierrez MD [address] [place] [address] Health Maintenance Due Date Last Done Comments Hepatitis C Screening 1963 Zoster Vaccines (1 of 2) 07/26/2015 05/31/2015 DTaP/Tdap/Td Vaccines (2 - Td or Tdap) 02/10/2021 02/10/2011 RSV Patients and Patients Aged 60 years or older (1 - 1-dose 75+ series) 2021 COVID-19 Vaccine ( season) 2024 09/27/2021, 09/27/2021, 12/24/2020, Additional history exists Influenza Vaccine (#1) 2024 2, 03/20/2022, 02/20/2018, Additional history exists Postponed from 01/06/2024 (Patient Refused) SDOH Screening 12/25/2024 12/26/2023 Alcohol/Substance Use Screening 04/11/2025 04/11/2024 Depression Screening 04/11/2025 04/11/2024, 04/11/20 24 Tobacco Screening 05/12/2025 05/12/2024 Lipid Panel 07/06/2026 07/06/2021, 06/07, 10/30/2019 Pneumococcal Vaccine: 50+ Years Completed 02/20/2018, 05/31/2015, 05/11/2009 HIB Vaccines Aged Out No longer eligi ble based on patient's age to complete this topic HPV Vaccines Aged Out No longer eligi ble based on patient's age to complete this topic Hepatitis A Vaccines Aged Out No long er eligible based on patient's age to complete this topic Hepatitis B Vaccines Aged Out No long er eligible based on patient's age to complete this topic IPV Vaccines Aged Out No longer eligi ble based on patient's age to complete this topic Meningococcal Vaccine Aged Out No jeana chelsea eligible based on patient's age to complete this topic RSV under 20 months Aged Out No longe r eligible based on patient's age to complete this topic Rotavirus Vaccines Aged Out No longer eligible based on patient's age to complete this topic Procedures Procedure Name Priority Date/Time Associated Diagnosis Comments LIPID PANEL, STANDARD Routine 07/06/2021 9:26 AM EST from Last 3 Months or Most Recently Relevant to Health Maintenance Results * (ABNORMAL) LIPID PANEL, STANDARD (07/06/2021 9:26 AM EST) Chol/HDLC Ratio 6.9(H) <5.0 (calc) [facility] Cholesterol, Total 236(H) <200 mg/dL [facility] HDL Cholesterol 34(L) > OR = 50 mg/dL [facility] LDL Cholesterol 168(H) mg/dL (calc) [facility] Comment: Reference range: <100 ?? Desirable range <100 mg/dL for primary prevention; ?? <70 mg/dL for patients with CHD or diabetic patients ?? with > or = 2 CHD risk factors. ?? LDL-C is now calculated using the Lorna ?? calculation, which is a validated novel method providing ?? better accuracy than the Friedewald equation in the ?? estimation of LDL-C. ?? Sánchez DIAMOND et al. TERRENCE. 2013;310(19): 1489-4632 ?? (http://education.Leaky.Precision Biopsy/faq/PTZ405) Non-HDL Cholesterol 202(H) <130 mg/dL (calc) [facility] Comment: For patients with diabetes plus 1 major ASCVD risk ?? factor, treating to a non-HDL-C goal of <100 mg/dL ?? (LDL-C of <70 mg/dL) is considered a therapeutic ?? option. Triglycerides 186(H) <150 mg/dL [facility] 07/06/2021 9:26 AM EST us Mis Gutierrez MD LAB BLOOD ORDERABLES Final Re sult [facility] [address] from Last 3 Months or Most Recently Relevant to Health Maintenance Insurance [facility] [employer] OPTIONS (O D-SNP) [place] [id number] Care Teams Flame Cutting Supervisor Relationship Specialty Start Date End Date Mis Gutierrez MD [address] [place] [id number] PCP - General Family Medicine 12/31/20 Rowena Becerril MD Oncology 03/13/24 Natalya Balderrama MD Gastroenterology 03/13/24
--- OUTSIDE RECORDS SUMMARY | 2024-09-03 11:01 | XMS_ITS | Encounter Summary ---
Author Organization [employer] Address [address] [facility] [address] [place] [address] Care Team Providers Care Developer Architect Name Role Phone Mis Gutierrez MD Primary Care Provider [phone] Reason for Visit * Reason Comments Med Refill Encounter Details Date Type Department Care Team ([facility] Contact Info) Description 01/08/2023 Refill [facility] MED & PEDS [address] [place], [place] [phone] Mis Gutierrez MD [address] [place] [address] Gastroesophageal reflux disease, unspecified whether esophagitis present Social History Tobacco Use Types Packs/Day Years Used Date Smoking Tobacco: Former Cigarettes 0.3 52 0 05/07/1965 - 05/07/2017 Passive Smoke Exposure: Never Smokeless Tobacco: Never Alcohol Use Standard Drinks/Week Comments Never 0 (1 standard drink = 0.6 oz pur e alcohol) Depression Answer Date Recorded Patient Health Questionnaire-9 Score 3 12/08/2022 Depression Answer Date Recorded Patient Health Questionnaire-2 Score 2 12/08/2022 Comments Unknown Sex and Gender Information Value Date Recorded Sex Assigned at Female 03/06/2022 10:18 AM EDT Legal Sex Female 10:18 AM EDT Gender Identity Female 03/06/2022 10:18 AM EDT Sexual Orientation Choose not to disclose 2021 10:18 AM EDT documented as of this encounter Plan of Treatment Upcoming Encounters Date Type Department Care Team ([facility] Contact Info) Description 09/25/2024 1:30 PM EDT Office Visit [facility] MED & [facility] [address] [place] [address] Mis Gutierrez MD [address] [place] [address] documented as of this encounter Visit Diagnoses Diagnosis Gastroesophageal reflux disease, unspecified whether esophagitis present documented in this encounter Additional Health Concerns Assessment Noted Time PHQ-9 Depression Total Score: 3 12/09/19 23 9:50 AM EDT documented as of this encounter Care Teams Developer Architect Relationship Specialty Start Date End Date Mis Gutierrez MD [address] [place] [id number] PCP - General Family Medicine 12/31/20 Rowena Becerril MD Oncology 03/13/24 Natalya Balderrama MD Gastroenterology 03/13/24 documented as of this encounter
--- OUTSIDE RECORDS SUMMARY | 2024-09-03 11:01 | XMS_ITS | Encounter Summary ---
Author Organization [email or web address] Address [address] [facility] [address] [place] [address] Care Team Providers Care Mine Car Mechanic Name Role Phone Mis Gutierrez MD Primary Care Provider [phone] Reason for Visit * Reason Onset Date Comments FYI 04/19/2023 Encounter Details Date Type Department Care Team ([facility] Contact Info) Description 04/19/2023 Telephone [facility] MED & PEDS [address] [place], [place] [phone] Mis Gutierrez MD [address] [place] [address] FYI Social History Tobacco Use Types Packs/Day Years Used Date Smoking Tobacco: Former Cigarettes 0.3 52 0 [birth year]/07/1965 - 05/07/2017 Passive Smoke Exposure: Never Smokeless Tobacco: Never Alcohol Use Standard Drinks/Week Comments Never 0 (1 standard drink = 0.6 oz pur e alcohol) Depression Answer Date Recorded Patient Health Questionnaire-9 Score 3 12/08/2022 Housing Stability Answer Date Recorded What is your housing situation today? I have geovanny sotelo 02/19/[address] you li ve. Do you have problems with any of the following? None of the above 02/19/2023 Food Insecurity Answer Date Recorded Within the past 12 months, y ou worried that your food would run out before you got money to buy more: Never True 02/19/2023 Within the past 12 months,th e food you bought just didn't last and you didn't have enough money to get more: Never True Transportation Answer Date Recorded In the past 12 months, has l ack of transportation kept you from medical appts, meetings, work or from getting things needed for daily living? No 02/19/2023 Utilities Answer Date Recorded In the past 12 months, has t he electric, gas, oil or water company threatened to shut off services in your home? No 02/19/2023 Depression Answer Date Recorded Patient Health Questionnaire-2 Score 2 12/08/2022 Comments Unknown Sex and Gender Information Value Date Recorded Sex Assigned at Female 03/06/2022 10:18 AM EDT Legal Sex Female 10:18 AM EDT Gender Identity Female 03/06/2022 10:18 AM EDT Sexual Orientation Choose not to disclose 2021 10:18 AM EDT documented as of this encounter Miscellaneous Notes * Telephone Encounter - Ce Mancilla RN - 04/19/2023 3:53 PM EST Noted. PCP will sign orders once received. * Telephone Encounter - Ish Reaves - 04/19/2023 3:46 PM EST Tc from [facility] working with Dallin SHANNAN calling to let pcp know that pt has started physical therapy today. [facility]annesa stated she is sending orders over. If any questions please contact [facility] at [phone]. documented in this encounter Plan of Treatment Upcoming Encounters Date Type Department Care Team ([facility] st Contact Info) Description 09/25/2024 1:30 PM EDT Office Visit [facility] MED & PEDS [address] [place] [address] Mis Gutierrez MD [address] [place] [address] documented as of this encounter Visit Diagnoses Not on filedocumented in this encounter Additional Health Concerns Assessment Noted Time PHQ-9 Depression Total Score: 3 12/09/19 23 9:50 AM EDT documented as of this encounter Care Teams Mine Car Mechanic Relationship Specialty Start Date End Date Mis Gutierrez MD [address] [place] [phone] PCP - General Family Medicine 12/31/20 Rowena Becerril MD Oncology 03/13/24 Natalya Balderrama MD Gastroenterology 03/13/24 documented as of this encounter
--- OUTSIDE RECORDS SUMMARY | 2024-09-03 11:01 | XMS_ITS | Encounter Summary ---
Author Organization [employer] Address [address] [facility] [facility] [address] [facility] [address] [place] [address] Care Team Providers Care Bilingual School Psychologist Name Role Phone Mis Gutierrez MD Primary Care Provider [phone] Reason for Visit * Reason Onset Date Comments Med Refill 03/15/2023 Encounter Details Date Type Department Care Team ([facility] Contact Info) Description 03/15/2023 Telephone [facility] MEDICINE [address] [place] [address] Mis Gutierrez MD [address] [place] [address] Med Refill Social History Tobacco Use Types Packs/Day Years [...] encounter Miscellaneous Notes * Telephone Encounter - Franklin Stratton - 03/15/2023 3:11 PM EST Tc from patient requesting medication refill for oxyCODONE (Roxicodone) 5 MG immediate release tablet. documented in this encounter Plan of Treatment Upcoming Encounters Date Type Department Care Team (Late st Contact Info) Description 09/25/2024 1:30 PM EDT Office Visit [facility] MED & PEDS [address] [place] [address] Mis Gutierrez MD [address] [place] [address] documented as of this encounter Visit Diagnoses Not on filedocumented in this encounter Additional Health Concerns Assessment Noted Time PHQ-9 Depression Total Score: 3 12/09/19 23 9:50 AM EDT documented as of this encounter Care Teams Bilingual School Psychologist Relationship Specialty Start Date End Date Mis Gutierrez MD [address] [place] [address] PCP - General Family Medicine 12/31/20 Rowena Becerril MD Oncology 03/13/24 Natalya Balderrama MD Gastroenterology 03/13/24 documented as of this encounter
--- OUTSIDE RECORDS SUMMARY | 2024-09-03 11:01 | XMS_ITS | Clinical Summary ---
Author Organization [facility] Facility Address [address] [address] Care Team Providers Care Manager Er Name Role Phone Mis Gutierrez MD Primary Care Provider [phone] Allergies Active Allergy Reactions Criticality Noted Date Comments Codeine Rash High 12/26/2022 Ibuprofen Rash High 06/10/2010 Other reaction(s): unspecified Other reaction(s): rash, swelling Penicillin V Other (see comments) 07/28/2021 Penicillins Other (see comments),Rash High 06/10/2010 Other reaction(s): unspecified Other reaction(s): rash, swelling Other reaction(s): Unknown Other reaction(s): unspecified Other reaction(s): unspecified Medications Umeclidinium [place] (Incruse Ellipta) 62.5 MCG/INH aerosol powder Active triamcinolone (KENALOG) 0.1 % cream Active tiotropium (Spiriva HandiHaler) 18 MCG per inhalation capsule Active Sennosides 8.6 MG capsule Take 1 capsule by mouth 1 (one) time each day Active ondansetron ODT (ZOFRAN-ODT) 4 MG dispersible tablet Take 2 tablets by mouth Active omeprazole OTC (PriLOSEC OTC) 20 MG EC tablet Take 1 tablet by mouth 1 (one) time each day Active furosemide (LASIX) 20 MG tablet Take 1 tablet by mouth 1 (one) time each day Active fluticasone (FLONASE) 50 MCG/ACT nasal spray Active fenofibrate (TRICOR) 48 MG tablet Take 1 tablet by mouth 1 (one) time each day Active docusate sodium (COLACE) 100 MG capsule Take 1 capsule by mouth in the morning and 1 capsule in the evening. Active diphenhydrAMINE (BENADRYL) 25 MG tablet Active Cholecalciferol 50 MCG (1999 UT) capsule Take 1 capsule by mouth 1 (one) time each day Active betamethasone dipropionate 0.05 % cream Active atorvastatin (LIPITOR) 80 MG tablet Take 1 tablet by mouth 1 (one) time each day Active albuterol HFA (PROVENTIL HFA;VENTOLIN HFA) 108 (90 Base) MCG/ACT inhaler Acti ve albuterol (2.5 MG/3ML) 0.083% nebulizer solution Active acetaminophen (TYLENOL) 500 MG tablet Take 1 tablet by mouth in the morning and 1 tablet at noon and 1 tablet in the evening and 1 tablet before bedtime. Active Active Problems Problem Noted Date Diagnosed Date Stage 3a chronic kidney disease 08/08/2022 Chronic kidney disease stage 2 07/28/2021 Hypertensive renal disease 07/28/2021 Stage 3a chronic kidney disease 07/28/2021 Allergic rhinitis 03/01/2015 Chronic obstructive pulmonary disease 03/01/2015 Constipation 03/01/2015 Essential hypertension 03/01/2015 Gastro-esophageal reflux disease without esophag itis 03/01/2015 Hyperlipidemia 03/01/2015 Impaired glucose tolerance 03/01/2015 Tobacco dependence syndrome 03/01/2015 Psoriasis 03/01/2015 Tubular adenoma of colon 03/01/2015 Chronic kidney disease stage 2 03/01/2015 Immunizations Immunization Administration Dates Next Due Influenza Split 04/24/2013,01/15/2012 Influenza Split High Dose Pr eservative Free IM 02/20/2018 Influenza, Quadrivalent, With Preservative 05/03,02/08/2015 Influenza, Unspecified 03/20/2022,03/31/2014,11/2010 Pfizer SARS-COV-2 09/27/2021,12/24/2020,12/04/19 21 Pneumococcal Conjugate 13-Valent 05/31/2015 Pneumococcal Polysaccharide 02/20/2018, 0 Tdap 02/10/2011 Zoster 05/31/2015 Social History Tobacco Use Types Packs/Day Years Used Date Smoking Tobacco: Former Comments:Smoking History Inf o:Every day Alcohol Use Standard Drinks/Week Comments Yes 0 (1 standard drink = 0.6 oz pure alcohol) Alcoholic Drinks/day: Occasional social drink Comments Unknown Sex and Gender Information Value Date Recorded Sex Assigned at Not on file Legal Sex Female 5:13 PM EST Gender Identity Not on file Sexual Orientation Not on file Last Filed Vital Signs Vital Sign Reading Time Taken Comments Blood Pressure 116/60 09/10/2023 3:17 PM EDT Pulse 86 09/10/2023 3:17 PM EDT Temperature - - Respiratory Rate - - Oxygen Saturation 96% 09/10/2023 3:17 PM EDT Inhaled Oxygen Concentration - - Weight 49.1 kg (108 lb 3.2 oz) 09/10/2023 3:17 P M EDT Height 160 cm (5' 3 ) 05/31/2020 12:00 PM EST Body Mass Index 19.17 05/31/2020 12:00 PM EST Plan of Treatment Upcoming Encounters Date Type Department Care Team (Late st Contact Info) Description 09/15/2024 1:45 PM EDT Office Visit [facility] [address] [place] [address] [place] [address] Jerry Mitchell MD [address] [facility] [address] [place] [address] Health Maintenance Due Date Last Done Comments Influenza Vaccine (Season Ended) 2025 03/20/2022, 02/20/2018, 05/03/2017, Additional history exists Pneumococcal Vaccine: 50+ Years Completed 02/20/2018, 05/31/2015, 05/11/2009 Pneumococcal Vaccine: Peds (0 to 5 Years) and At-Risk Patients (6 to 49 Years) Discontinued 02/20/2018, 05/31/2015, 05/11/2009 Hepatitis B Vaccine Aged Out No longe r eligible based on patient's age to complete this topic Insurance [facility] ([id number]) [facility] ([id number]) Care Teams Manager Er Relationship Specialty Start Date End Date Mis Gutierrez MD [address] [place] [id number] PCP - General Family Medicine 09/10/23
--- OUTSIDE RECORDS SUMMARY | 2024-09-03 11:01 | XMS_ITS | Data Portability ---
Author Organization [facility] Address [address] [place] [phone] Care Team Providers Care Haul Driver Name Role Phone HIM CCA OTHER Assessment Encounter Date Assessment Date Assessment LastModified by Organization Details LastModified Time 10/25/2023 10/25/2023 I provided real -time medical direction via phone for this encounter and was available for additional phone-based assistance as needed. I have reviewed and agree with the Assessment and Plan as documented by the Vulnerability Assessment Analyst. Patient given the opportunity to ask questions. Our service contacted for an assessment of: a rash As per above, patient has a rash on the neck for several days. Is pruritic. Denies any new medications, exposures to new environmental toxins, creams, lotions, soaps, etc. No new pets or animals in the house. Per welfare project manager on the scene, VSS. Non-toxic. Please see uploaded pictures. Impression: Likely eczema Plan: For now - hydrate, use usual soap and use usual lotion liberally to the area. Can try hydorcortisone cream. [email or web address] Not available 10/25/2023 14:20:48 08/07/2024 08/07/2024 I have reviewed and agree with the assessment and plan as documented by the welfare project manager. I provided real time medical direction for this encounter and was immediately available to provide additional phone based assistance as needed. History as noted by welfare project manager. Pt with history of COPD/asthma, HTN, ? CA. Pt reports 1 week of cough productive of yellow sputum, congestion and intermittently feeling feverish. She is taking tylenol and an OTC cough/cold medication with improved symptoms. No dyspnea or CP. Pt is feeling generally improved but wanted to be tested for covid and flu. On exam, pt appears well, no distress. Vitals and O2 sat normal. Lungs clear, no wheezing or rhonchi. Rapid Covid and flu negative. Impression: Pt with 1 week f viral URI symptoms, likely viral bronchitis. Testing negative for covid and flu today. Pt's vitals and exam normal. Given her symptoms are mild and improving with OTC meds and evaluation today is normal, no further interventions are indicated at this time. Diagnosis d/w patient and she is told she should continue to improve over the next 1-2 weeks. Pt instructed to seek medical attention right away with any worsening or new symptoms, which are reviewed with her. [email or web address] Not available 08/07/2024 12:50:45 Plan of Treatment Reminders Order Date Submit Date Provider Last Modified By Organization Details Last Modified Time Details Appointments None recorded. Lab rapid flu (A+B) 2024 025 [facility], [address] [place] [address], [phone] 5 15:10:48 rapid SARS CoV 2 Ag, QL IA, respiratory specimen [address], [phone] 5 15:09:47 BMP, serum or plasma 2023 [email or web address], [phone] 4 21:45:00 cmp, whole blood + tosin 2023 [email or web address], [phone] 4 14:05:12 Referral None recorded. Procedures None recorded. Surgeries None recorded. Imaging None recorded. Medication Orders furosemide 10 mg/mL injection syringe 2023 024 [email or web address] Not available 4 12:49:04 Patient TargetsNo targets recorded. Patient InstructionsNo instructions recorded. Reason for Referral None Reported. Results Created Date Observation Date Name Description Value Unit Range Abnormal Flag Note LastModifiedBy Organization Detail LastModifiedTime 06/14/19 24 06/14/2023 cmp, whole blood + picco lo BUN 10 Not Available [facility] - [facility] [address] [place] [address], [phone] 06/14/2023 12:48:42 06/14/19 24 06/14/2023 cmp, whole blood + picco lo CRE 0.8 Not Available [facility] - [facility] [address], [address] 06/14/2023 12:48:42 06/14/19 24 06/14/2023 cmp, whole blood + picco lo GLU 101 Not Available [facility] - [facility] [address], [phone] 06/14/2023 12:48:42 06/14/19 24 06/14/2023 cmp, whole blood + picco lo K+ 4.6 Not Available [facility] - [facility] [address], [phone] 06/14/2023 12:48:42 06/14/19 24 06/14/2023 cmp, whole blood + picco lo Na+ 145 Not Available [facility] [address], [phone] 06/14/2023 12:48:42 08/08/19 25 08/07/2024 rapid flu (A+B) Flu negati ve Not Available [facility] ed [address] [place] [address], [phone] 08/07/2024 12:45:41 08/08/19 25 08/07/2024 rapid SARS CoV 2 Ag, QL IA, respi rator y speci men rapid SARS CoV 2 Ag, QL IA, respiratory specimen negati ve Not Available [facility] ed [address] [place] [address], [phone] 08/07/2024 12:45:46 Result Notes None recorded. Medical Equipment None Reported. Allergies No known drug allergies Medications Name Sig Start Date Stop Date [...] Updated DateTime 3 18 /min 88 /min 24500.3 6 g 99 % 99 % 98.4 [degF] 99 mm[Hg] 66 mm[Hg] Not Available [employer] - [employer] 3 13:46:08 Date Recorded Respiratory rate Body weight Body height Heart rate Oxygen saturation Oxygen saturation in Arterial blood by Pulse oximetry Body temperature Systolic blood pressure Diastolic blood pressure Provider Name and Address Organization Details Last Updated DateTime 4 16 /min 764200. 776 g 152.4 cm 83 /min 99 [...] /min 98 % 98 % 97.6 [degF] 10547.1 6 g 132 mm[Hg] 78 mm[Hg] Not Available [employer] [facility] - production 4 11:32:10 Date Recorded Body weight Heart rate Respiratory rate Body temperature Oxygen saturation Oxygen saturation in Arterial blood by Pulse oximetry Systolic blood pressure Diastolic blood pressure Provider Name and Address Organization Details Last Updated DateTime 4 44120.5 68 g 82 /min 16 /min 98.2 [degF] 99 % 99 % 104 mm[Hg] 62 mm[Hg] Not Available [employer] - production 4 14:18:31 Date Recorded Respiratory rate Oxygen saturation Oxygen saturation in Arterial blood by Pulse oximetry Body temperature Heart rate Systolic blood pressure Diastolic blood pressure Provider Name and Address Organization Details Last Updated DateTime 5 18 /min 100 % 100 % 98.3 [degF] 71 /min 112 mm[Hg] 67 mm[Hg] Not Available [employer] - production 5 12:42:29 Social History None recorded. Functional Status None recorded. Mental Status None recorded. Family History Nothing Reported. Medical History No medical history recorded. Gynecological HistoryNo gynecological history recorded. Obstetrics History GPAL:G 0 P 0 0 0 0 Past Encounters Encounter ID Performer Location Encounter Start Date Encounter Closed Date Diagnosis/Indication Diagnosis SNOMED-CT Code Diagnosis ICD10 Code Diagnosis Note [id number] Pelon Fuentes MD Main - [address] [phone] 03/23/2023 13:46:05 03/25/2023 15:39:55 Hypotensive episode 69390508 I95.9 Family reports episode of hypotensio n yesterday before taking blood pressure medication (midodrine ). Denies need for visit today and reports patient is at her baseline. As such, labs deferred. Recommende d close collaborat ion with primary team. [id number] Kamila Pinto MD Main - [address] [address] 06/14/2023 12:12:19 06/14/2023 21:49:37 Edema of lower extremity 554209208 R60.0 77 year old female being evaluated [...] assessment and plan as documented by the welfare project manager. I provided real-time medical direction for this encounter and was immediatel y available to provide additional phone-base d assistance as needed. We discussed the diagnostic uncertaint y of home visits and associated risks. We discussed the need to seek care urgently/e mergently in the setting of any new or worsening symptoms. Congestive heart failure 17108496 I50.9 [id number] Cyrus Conteh MD [facility] - [address] [phone] 06/16/2023 11:31:55 06/18/2023 13:06:21 Edema of lower extremity 828787352 R60.0 As noted, we were called to see this patient regarding concerns of edema. Evaluation in the field was performed by my welfare project manager colleague, as noted above, I provided real-time [...] symptoms, particular ly fever, LH, prostratio n. [id number] Linnette Sommer MD Main - [facility] [address] [place] [phone] 10/25/2023 14:18:25 10/25/2023 20:34:21 Pruritic rash [id number] L28.2 [id number] Bo Perera MD Main - [facility] [address] [place] [phone] 08/07/2024 12:42:17 08/07/2024 15:38:38 Acute upper respiratory infection 96006943 J06.9 Health Concerns Section Related Observation LastModified by Organization Detai ls LastModified Time None Recorded Concern Status LastModified by Organization Details LastModified Time None Recorded Advance Directives Directive None Recorded Payers Encounter Date Sequence Insurance Name Policy Number Policy Funez Covered Member ID Funez Member ID Guarantor Name 03/23/2023 1 [facility] - DOS ON OR AFTER 2022 - DUAL ELIGIBLE - DETENTION OPTIONS AND ONE CARE (MEDICARE REPLACEMENT/ADV ANTAGE - HMO) Delmy Ann [id number] Delmy L Ann 06/14/2023 1 [facility] [employer] [employer] - DOS ON OR AFTER 2022 - DUAL ELIGIBLE - DETENTION OPTIONS AND ONE CARE (MEDICARE REPLACEMENT/ADV ANTAGE - HMO) Delmy Ann [id number] Delmy L Ann 06/16/2023 1 [facility] - DOS ON OR AFTER 2022 - DUAL ELIGIBLE - DETENTION OPTIONS AND ONE CARE (MEDICARE REPLACEMENT/ADV ANTAGE - HMO) Delmy Ann [id number] Delmy L Ann 10/25/2023 1 [facility] [employer] - DOS ON OR AFTER 2022 - DUAL ELIGIBLE - DETENTION OPTIONS AND ONE CARE (MEDICARE REPLACEMENT/ADV ANTAGE - HMO) Delmy Ann [id number] Delmy L Ann 08/07/2024 1 [facility] - DOS ON OR AFTER 2022 - DUAL ELIGIBLE - DETENTION OPTIONS AND ONE CARE (MEDICARE REPLACEMENT/ADV ANTAGE - HMO) Delmy Ann [id number] Delmy Ann Notes Date Note Type Note [...] ..................... ..................... ..................... ..................... ..................... ..................... ............... Vulnerability Assessment Analyst Note From Andrae Bell: Pt has no complaints today. Is eating. Seems to be confusion as to why the visit according to ULTRASOUND APPLICATIONS SPECIALIST and PT. They sts the RN that [...] Lungs clear bilaterally. Pt sts feels great. [facility] contacted and pt educated on signs indicating the ER. ..................... ..................... ..................... ..................... ..................... ..................... ............... Disposition: Fulfilled Pelon Fuentes MD [address] [place] [address],[address] [facility], [place], [phone], [employer] 03/23/2023 13:47:59 06/14/2023 text/html HPI: Swelling of [...] advised of disposition, no appt availability in [facility]. Agrees to [employer] for jamshid. ..................... ..................... ..................... ..................... ..................... ..................... ............... CRC Nurse Triage Notes (Padmini Copeland): Comments: Reviewed HPI- no further info needed HPatterson RN ..................... ..................... ..................... ..................... ..................... ..................... ............... Vulnerability Assessment Analyst Note From Shmuel Doe: [facility] [...] and tender to palpation. Pictures taken for [facility] review. Vital signs taken and WNL. Pt afebrile. Consulted with [facility] who advised drawing istat labs and establishing iv for lasix administration. I stat labs drawn as follows: Na 145, K 4.6, Cl 106, iCa 1.13, TCO2 27, Glu 101, BUN 10, Creatinine 0.8, Hct 28, Hb 9.5 Anion gap 18. Consulted with [facility] who ordered 20 mg IV lasix administered on scene and follow up scheduled for 48 hours later. Patient education provided. [facility] Lab Orders: cmp, whole blood + tosin: Performed ..................... ..................... ..................... ..................... ..................... ..................... ............... Disposition: Fulfilled Kamila Pinto MD [address] [facility],[address], [place], [address], [employer] 06/14/2023 14:05:23 06/16/2023 text/html HPI: Edema on LE, treated by NAIMA on 06/14 with IV Lasix and requires a F/u in 48 hrs. Member is a 77-year-old Malay speaking female, on [facility] Palliative services for diagnosis of Malignant Neoplasm of Stomach in the setting of 40-pound weight loss (155 to 110 lb). Other DX are COPD, Stage 3 CKD, vertigo, UTI, bilateral cataract, OA, gastric lymphoma, carpel tunnel syndrome and is on Chemo every 2 weeks at [facility], [facility] 06/19/23, ..................... ..................... ..................... ..................... ..................... ..................... ............... [facility] Nurse Triage Notes (León Pina): Comments: No further information required to process visit. 06/16 - Outreach call to the member for a wellness check - Member reports lower extremity swelling - S/S remain the same - Follow up visit requested - Ean YOUNG ..................... ..................... ..................... ..................... ..................... ..................... ............... Vulnerability Assessment Analyst Note From Andrae Bell: Pt f/u [...] ..................... ............... Disposition: Fulfilled Cyrus Conteh MD [address] [place] [address],[address], [place], [address], [employer] 06/17/2023 21:45:06 10/25/2023 text/html HPI: 77yo female [...] ..................... ..................... ..................... ..................... ..................... ..................... ............... Vulnerability Assessment Analyst Note From Andrae Bell: Pt co [...] hive like bumps pink in color. Afebrile. [facility] contacted and advised to follow up with pcp for referral to cvt rn. Pt advised to use hydrocortisone cream vs Benadryl. Pt education on signs indicating the ER. ..................... ..................... ..................... ..................... ..................... ..................... ............... Disposition: Fulfilled Linnette Sommer MD [address] [facility],[address], [place], [address], [employer] 10/25/2023 14:20:59 08/07/2024 text/html This was a super vised home visit with welfare project manager Jonas White. HPI: cough x1 week and intermittent fever. Productive cough with yellow sputum. Sees Oncologist on Sunday. Unknown temp readings. Taking Tylenol with some relief initially but then starts to feel feverish again. Denies shortness of breath. Visiting nurse would like to requesting visit for tomorrow to r/o Covid/Flu/Strep.Educa tion provided on the response time and the member was advised to monitor reported s/s and seek emergency treatment if needed. ..................... ..................... ..................... ..................... ..................... ..................... ............... CRC Nurse Triage Notes (Selam Botello): Reason For Request: Pt has had a cough for a week along with fever on and off, producing yellow/white mucus Patient Reports: Sputum increase ; CoughDenies: Increased work of breathing/labored ? with or without fever Unable to speak in full sentences without distress Discoloration of skin -cyanosis Needs to sleep sitting up, can? t catch breath Shortness of breath in setting of confusion Chief Complaints: CoughPMH: Cancer, COPD/Asthma, HypertensionPMH Reviewed at 08/06/2024 - :Allergies Reviewed at 08/06/2024 - 14:01 Vulnerability Assessment Analyst Organization Information for Jonas White - [employer] Name: [employer]Address: [address] [place] [address], [place] [address], Medical Director: Toni LEON No.: [id number] Vulnerability Assessment Analyst POC Test Results from Jonas White - [employer] Rapid COVID antigen (12:39:30)COVID: -Attachments uploaded as part of this test result can be found under Documents section. Rapid influenza antigen (12:39:31)Flu: -Attachments uploaded as part of this test result can be found under Documents section. ..................... ..................... ..................... ..................... ..................... ..................... ............... Vulnerability Assessment Analyst Note From Jonas White: [facility] dispatched to the address listed above for the report of a female green party with flu like symptoms. Arrival on scene, patient was found inside ambulating without assistance to a seated position, alert and oriented x4, patent airway, breathing non labored speaking in complete sentences, skin WPD in no obvious distress. +/= Chest rise. -SOB, -CP, -NVD, -Trauma, -Fever. GCS 15. Lung sounds clear in all foster. Patient reports flu like symptoms for approximately 1 week including productive cough with yellow sputum, nasal congestion, and intermittently feeling feverish but does not have access to thermometer. Patient reports that she has been taking 500mg Tylenol in the morning and at night for fever management and then has been taking Dayquil for other symptom management with reported improvement. Patient reports that overall she feels that her symptoms are improving. [facility] visit requested by visiting nurse to rule out COVID/FLU. Patient reports normal food/fluid intake and has been medication compliant. Patient denies any chest pain, NVD, or shortness of breath. Patient vital signs obtained as noted. COVID/FLU POC obtained as noted and negative for all. [facility] consulted, advised that patient symptoms should be subsiding in the next week. No further treatments or testing ordered. Red flags discussed with patient and advised to call back or call 911 if condition worsens. SC6 clear. [facility] Lab Orders: rapid flu (A+B): Performed rapid SARS CoV 2 Ag, QL IA, respiratory specimen: Performed ..................... ..................... ..................... ..................... ..................... ..................... ............... [facility] Consulted: Bo Perera ..................... ..................... ..................... ..................... ..................... ..................... ............... Disposition: Rolo Perera MD [address] [facility],[address], [place], [address], [employer] 08/07/2024 13:37:53 OBGyn Episode No OBEpisode recorded.
[2024-09-03] MEDS: iohexoL 350 MG/ML 100 ML INFUS..BTL IV (13:55)
[2024-09-03] MEDS: Barium Sulfate Oral (Vanilla) 450 ML ORAL.SUSP PO ×2 (13:55→13:56)
[2024-09-03 14:31] LABS: GFR POC 55
== END 2024-09-03 10:03 | disposition home or self-care (01) ==
LOC: HO.CT 10:02
PROVIDERS: PCP Family Medicine; Visit Provider Internal Medicine Medical Oncology
DX: C85.99 Non-Hodgkin lymphoma, unspecified, extranodal and solid organ sites (principal)
CPT/HCPCS: 71260; 74177; 82565; Q9967

== ENCOUNTER → 2024-09-03 10:05 | Outpatient (BNV) | payer OTHER, SELFPAY | PROVIDERS: PCP Family Medicine; Visit Provider Specialist | DX: C85.99 Non-Hodgkin lymphoma, unspecified, extranodal and solid organ sites (principal) | CPT/HCPCS: 71260; 74177 ==

== ENCOUNTER 2024-11-20 12:13 | Emergency (ER) | payer OTHER, SELFPAY ==
[2024-11-20] VITALS (8 sets, daily range): BP systolic 113–140; BP diastolic 50–79; PULSE 59–79; RESP 15–16; TEMP 36.5–36.8; O2SAT 98–100; BMI 20.8
--- NOTE | 2024-11-20 12:15 | ED.GENADULT ---
HPI - General Adult General Chief complaint: Dizziness Stated complaint: Nausea, dizziness, pain in feet Time Seen by Provider: 11/20/24 15:22 Source: patient and RN notes reviewed Mode of arrival: ambulatory Limitations: no limitations History of Present Illness ED Provider: Jackie Anders PA-C HPI narrative: This is a 79-year-old female, with a past medical history of gastric lymphoma, malignant lymphoma, asthma, who presents emergency department with concerns of intermittent dizziness and nausea which started this morning. Patient also states that she has had some tingling into her legs. She states that she has a history of tingling into her legs which is chronic for her. Patient reports that she has had dizziness, occasionally it feels like the room is spinning and other times it feels like she is on a boat. She states that the dizziness worsens when she is walking. We are able to ambulate her, and states that her dizziness has improved since she has been here in the emergency room. MD complaint: Dizziness and nausea Onset (ago): day(s) Radiation: non-radiation Relieving factors: none Exacerbating factors: none Associated symptoms: denies other symptoms Treatments prior to arrival: none Related Data Home Medications ?Medication ?Instructions ?Recorded ?Confirmed albuterol sulfate 90 mcg/actuation 2 puff inhalation Q4H PRN 10/10/21 11/18/24 aerosol inhaler Shortness Of Breath Or Wheezing atorvastatin 80 mg tablet 80 mg PO QPM 10/10/21 11/18/24 loratadine 10 mg tablet 10 mg PO DAILY PRN Allergic 10/10/21 11/18/24 Symptoms fluticasone propionate 50 1 spray intranasal BID PRN Allergy 11/25/22 11/18/24 mcg/actuation nasal Symptoms spray,suspension cyanocobalamin (vitamin B-12) 1,000 mcg PO DAILY 03/09/23 11/18/24 1,000 mcg tablet umeclidinium 62.5 mcg/actuation 1 inh inhalation DAILY 03/09/23 11/18/24 blister powder for inhalation (Incruse Ellipta) diphenhydramine HCl 25 mg capsule 25 mg PO BEDTIME 02/11/24 11/18/24 potassium chloride 10 mEq 10 meq PO BID 02/11/24 11/18/24 capsule,extended release tramadol 50 mg tablet 50 mg PO TID PRN Pain 02/11/24 11/18/24 ferrous gluconate 324 mg (38 mg 324 mg PO DAILY 05/21/24 11/18/24 iron) tablet polyethylene glycol 3350 17 17 g PO DAILY 05/21/24 11/18/24 gram/dose oral powder sennosides 8.6 mg-docusate sodium 8.6 - 50 tab PO DAILY 05/21/24 11/18/24 50 mg tablet (Stool Softener-Stimulant Laxative) Previous Rx's ?Medication ?Instructions ?Recorded ondansetron 8 mg disintegrating 8 mg PO Q8H PRN Nausea #30 tabs 04/16/23 tablet calcium 600 mg (as 1 tab PO BID #60 tabs 04/17/23 carbonate)-vitamin D3 10 mcg (400 unit) tablet (Calcium 600 + D(3)) midodrine 5 mg tablet 5 mg PO TID #90 tabs 05/29/23 sucralfate 100 mg/mL oral 10 ml PO TID #1,000 mL 05/29/23 suspension bisacodyl 5 mg tablet,delayed 10 mg (2 x 5 mg) PO BID 2 days #8 05/21/24 release tabs glycerin (child) 2 supp SD DAILY 7 days #12 ea 05/21/24 mirabegron 25 mg tablet,extended 25 mg PO DAILY 30 days #30 tabs 07/21/24 release 24 hr (Myrbetriq) polyethylene glycol 3350 17 17 g PO DAILY #238 grams 09/04/24 gram/dose oral powder (Miralax) omeprazole 20 mg capsule,delayed 20 mg PO BID #180 caps 09/05/24 release cefuroxime axetil 250 mg tablet 250 mg PO BID 7 days #14 tabs 11/20/24 Allergies Allergy/AdvReac Type Severity Reaction Status Date / Time black pepper Allergy Intermediate Rash Verified 11/20/24 12:24 codeine (CODEINE) Allergy Intermediate RASH Verified 11/20/24 12:24 ibuprofen (From MOTRIN) Allergy Intermediate RASH Verified 11/20/24 12:24 Penicillins (PENICILLINS) Allergy Intermediate RASH Verified 11/20/24 12:24 pineapple Allergy Intermediate Rash Verified 11/20/24 12:24 Review of Systems Review of Systems: Yes all other systems are reviewed and are negative Constitutional: Constitutional: Reports as per [facility] Past Medical History Attestation statement: The following information was validated with the patient. Medical History Seizure History of blood transfusion Gastric lymphoma Orthostasis Moderate protein malnutrition Lymphoma malignant, large cell Anemia Abnormal CT of the abdomen Stomach cancer Kidney disease Asthma Surgical History History of esophagogastroduodenoscopy (EGD) Hx of colonoscopy Tubal ligation status History of bladder surgery History of cholecystectomy Social History Social History Household Members: Family Housing: Apartment Do you presently have visiting nurse or other home services: Yes Alcohol intake: former Patient Tobacco Use Status: Former Tobacco user Tobacco use type: Cigarette e-Cigarette/Vaping Use: Never Used Second Hand Smoke Exposure: No Advance Directives Date on File: 02/12/20 service: No 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al status: disabled 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: r handed Physical Exam ED Vital Signs: Vital Signs - 24 hr 11/20/24 12:15 11/20/24 15:14 11/20/24 16:12 Temperature 97.8 F 97.7 F Pulse Rate 79 62 59 Respiratory Rate 16 15 Blood Pressure 130/79 120/61 127/58 L Pulse Oximetry 99 100 Oxygen Delivery Method Room Air Room Air 11/20/24 16:14 11/20/24 16:16 11/20/24 18:12 Temperature 98.3 F Pulse Rate 62 61 59 Respiratory Rate 16 Blood Pressure 113/64 122/68 133/50 L Pulse Oximetry 98 Oxygen Delivery Method Room Air BMI result Body Mass Index 20.8 Neuro Cranial nerves: Yes CN's II-XII intact bilaterally Cognition (Neuro): normal cognition Gait exam (Neuro): Normal gait present Motor exam (neuro): 5/5 motor strength present throughout, Pronator motor function not present and no tremor noted Coordination: [id number] test normal and [id number] test normal Romberg Test: Negative Pupils: Normal pupillary reactivity/response: bilateral Extrem Other: No pedal edema, no calf tenderness, distal sensation circulation intact. DP pulse 2 +. NIH Stroke Scale Internal: Initial- Upon Arrival Time: 16:18 Level of Consciousness: Alert Level of Consciousness Questions: Answers both questions correctly Level of Consciousness Commands: Performs both tasks correctly Best Gaze: Normal Visual: No visual loss Facial Palsy: Normal Motor Arm (Right): No drift Motor Arm (Left): No drift Motor Leg (Right): No drift Motor Leg (Left): No drift Limb Ataxia: Absent Sensory: Normal Best Language: No aphasia Dysarthia: Normal Extinction and Inattention: No abnormality Score: 0 Course Course Course Narrative: This is a rapid medical exam performed by Donna Vanegas NP: Additional HPI, ROS, PE not included below will be deferred to primary provider. Patient is a 79y/o Com[place]an speaking F with history of LBCL (diffuse large B-cell lymphoma) on felix-R-CHP with Dr. Becerril, asthma, anemia, seizure age 13 presenting to the ED with complaint of dizziness/unsteadiness, nausea, and vomiting since this morning. Also complains of leg numbness and weakness, had pain at that time, but states typically has leg pain at baseline. States only feels a little bit of left foot numbness right now. Patient states that she is currently in remission. Plan: labs, UA Medications Administered Discontinued Medications Generic Name Dose Route Start Last Admin Trade Name Freq PRN Reason Stop Dose Admin Ceftriaxone Sodium 1 gm 11/20/24 18:44 11/20/24 19:38 Ceftriaxone Sodium 1 Gm Vial IVPUSH 11/20/24 18:45 1 gm ONCE ONE Administration Lactated Ringer's 1,000 mls @ 999 mls/hr 11/20/24 16:24 11/20/24 19:38 Lr IV 11/20/24 17:24 Infused .Q1H1M ONE Infusion Medical Decision Making Medical Decision Making [facility] Narrative: This is a 79-year-old female, with a past medical history of gastric lymphoma, malignant lymphoma, asthma, who presents emergency department with concerns of intermittent dizziness and nausea which started this morning. On arrival, vital signs within normal limits. She is speaking full sentences under no acute distress. She has an NIH score of 0, she is neurologically intact. I had patient stand, she states that her dizziness is as bad as it was previously. She is able to walk up and down the hallways without any evidence of any antalgic gait. Cerebellar testing all intact without any acute focal deficits. I discussed this with my attending physician, Dr. Renee. Orthostatics were performed, upon lying to sitting up, blood pressure systolically dropped from 127-113, patient may have slight orthostasis. Will medicate with 1 L of lactated Ringer's. We will continue to monitor pending overall workup. Labs were obtained prior to my evaluation, she has no leukocytosis, H&H 10.4/31.2, normocytic anemia noted, which he has a history of. Chemistry revealing elevation in creatinine and BUN, appears to be at her baseline. Troponin 4.2, will repeat. We will continue to closely monitor pending overall workup. Plan: Labs, EKG, IV fluids, further ER evaluation needed. >> 1843 - patient's symptoms have improved. Urine does appear to be infected, will give 1 time dose of ceftriaxone here in the emergency department. Patient is ambulatory with steady gait, she is feeling well. Will obtain blood cultures, however she is afebrile, not tachycardic, and has no leukocytosis. Patient feels comfortable and would like to be discharged home. Patient stable for discharge after receiving IV ceftriaxone, and getting blood cultures. Differential Diagnosis Differential Diagnoses: The differential diagnosis associated with the presentation includes Electrolyte derangement, ACS-unlikely, orthostatic hypotension, dehydration, BPPV Lab Data MDM Lab Attestation statement: I reviewed the patient's lab results. See MDM and course 11/20/24 13:47 11/20/24 13:11 Labs: Lab Results 11/20/24 11/20/24 11/20/24 Range/Units 13:11 13:47 16:25 WBC 5.5 (4.8-10.8) X10*3/uL RBC 3.39 L (4.20-5.50) X10*6/uL Hgb 10.4 L (12.0-16.0) g/dl Hct 31.2 L (37.0-47.0) % MCV 92.0 (80.0-98.0) fL MCH 30.7 (27.0-33.0) pg MCHC 33.3 (31.0-35.0) g/dl RDW 14.7 (11.0-16.0) % Plt Count 188 (160-400) X10*3/uL MPV 9.6 (9.4-12.3) fL Immature Gran % (Auto) 0.4 (0.0-0.4) % Neut % (Auto) 62.5 (45-73) % Lymph % (Auto) 23.6 (20-40) % [place] % (Auto) 10.0 (2-11) % Eos % (Auto) 3.1 (0-4) % Baso % (Auto) 0.4 (0-2) % Lymph # (Auto) 1.3 (1.2-4.9) X10*3/uL [place] # (Auto) 0.6 (0.1-1.2) X10*3/uL Eos # (Auto) 0.2 (0.0-0.4) X10*3/uL Baso # (Auto) 0.0 (0.0-0.2) X10*3/uL Abs Immat Gran (auto) 0.02 (0.00-0.03) X10*3/uL Absolute Neuts (auto) 3.5 (2.0-8.3) x10*3/uL Absolute Nucleated RBC 0.000 (0.0-0.012) X10*3/uL Nucleated RBC % (auto) 0.0 (0.0-0.2) /100WBC Sodium 143 (135-145) mmol/L Potassium 4.6 (3.3-5.1) mmol/L Chloride 110 H (96-108) mmol/L Carbon Dioxide 26 (22-29) mmol/L Anion Gap 12 (12-20) BUN 23 H (9-16) mg/dL Creatinine 1.59 H (0.5-1.4) mg/dL Estim Creat Clear Calc 25.2 Estimated GFR 31 Random Glucose 96 (60-115) mg/dL Calcium 8.6 (8.4-10.2) mg/dL Magnesium 2.2 (1.6-2.6) mg/dL Total Bilirubin 0.2 (0.0-1.0) mg/dL AST 24 (5-31) U/L ALT 14 (0-31) U/L Alkaline Phosphatase 121 H (39-117) U/L Troponin I High Sens 4.2 (<3.5-17.0) ng/L Total Protein 6.4 L (6.5-8.0) g/dL Albumin 3.9 (3.5-5.0) g/dL Urine Color Yellow Urine Appearance Clear Urine pH 6.5 (5.0-9.0) Ur Specific [place] 1.010 (1.005-1.025) Urine Protein Negative (Neg-Trace) mg/dL Urine Glucose (UA) Negative (Negative) mg/dL Urine Ketones Negative (Negative) mg/dL Urine Blood Negative (Negative) Urine Nitrite Negative (Negative) Ur Leukocyte Esterase Large (3+) H (Negative) Urine RBC 0-2 (0-2) /HPF Urine WBC 21-50 H (0-5) /HPF Ur Squamous Epith Cells 0-2 (0-2) /HPF Urine Bacteria None Seen (None Seen) Hyaline Casts 0-2 (0-2) /LPF 11/20/24 Range/Units 16:49 WBC (4.8-10.8) X10*3/uL RBC (4.20-5.50) X10*6/uL Hgb (12.0-16.0) g/dl Hct (37.0-47.0) % MCV (80.0-98.0) fL MCH (27.0-33.0) pg MCHC (31.0-35.0) g/dl RDW (11.0-16.0) % Plt Count (160-400) X10*3/uL MPV (9.4-12.3) fL Immature Gran % (Auto) (0.0-0.4) % Neut % (Auto) (45-73) % Lymph % (Auto) (20-40) % [place] % (Auto) (2-11) % Eos % (Auto) (0-4) % Baso % (Auto) (0-2) % Lymph # (Auto) (1.2-4.9) X10*3/uL [place] # (Auto) (0.1-1.2) X10*3/uL Eos # (Auto) (0.0-0.4) X10*3/uL Baso # (Auto) (0.0-0.2) X10*3/uL Abs Immat Gran (auto) (0.00-0.03) X10*3/uL Absolute Neuts (auto) (2.0-8.3) x10*3/uL Absolute Nucleated RBC (0.0-0.012) X10*3/uL Nucleated RBC % (auto) (0.0-0.2) /100WBC Sodium (135-145) mmol/L Potassium (3.3-5.1) mmol/L Chloride (96-108) mmol/L Carbon Dioxide (22-29) mmol/L Anion Gap (12-20) BUN (9-16) mg/dL Creatinine (0.5-1.4) mg/dL Estim Creat Clear Calc Estimated GFR Random Glucose (60-115) mg/dL Calcium (8.4-10.2) mg/dL Magnesium (1.6-2.6) mg/dL Total Bilirubin (0.0-1.0) mg/dL AST (5-31) U/L ALT (0-31) U/L Alkaline Phosphatase (39-117) U/L Troponin I High Sens 4.9 (<3.5-17.0) ng/L Total Protein (6.5-8.0) g/dL Albumin (3.5-5.0) g/dL Urine Color Urine Appearance Urine pH (5.0-9.0) Ur Specific [place] (1.005-1.025) Urine Protein (Neg-Trace) mg/dL Urine Glucose (UA) (Negative) mg/dL Urine Ketones (Negative) mg/dL Urine Blood (Negative) Urine Nitrite (Negative) Ur Leukocyte Esterase (Negative) Urine RBC (0-2) /HPF Urine WBC (0-5) /HPF Ur Squamous Epith Cells (0-2) /HPF Urine Bacteria (None Seen) Hyaline Casts (0-2) /LPF Independent Interpretation I performed an independent interpretation of an: EKG Interpretation: EKG sinus rhythm at a ventricular rate of 68 beats per minute, with short SD interval, QT/QTC 406/431, similar-appearing EKG from previous. Discharge Plan Discharge Clinical Impression: Acute UTI Patient Disposition: Home, Self-Care Instructions: Urinary Tract Infection in Women (ED) Additional Instructions: You were seen in the emergency department today. You were found to have a urinary tract infection. Please take prescribed antibiotic as directed, finish the entire course even if your symptoms improve. Drink plenty of fluids get plenty of rest. If any new or worsening symptoms occur including but not limited to severe dizziness, severe chest pain, shortness of breath, please seek emergent care. Prescriptions: New cefuroxime axetil 250 mg tablet 250 mg PO BID 7 Days Qty: 14 0RF No Action polyethylene glycol 3350 [Miralax] 17 gram/dose powder 17 g PO DAILY Qty: 238 1RF Rx Instructions: increase to twice a day, if no bowel movement for 2 days omeprazole 20 mg capsule,delayed release(DR/EC) 20 mg PO BID Qty: 180 1RF fluticasone propionate 50 mcg/actuation spray,suspension 1 spray intranasal BID PRN (Reason: Allergy Symptoms) calcium carbonate-vitamin D3 [Calcium 600 + D(3)] 600 mg-10 mcg (400 unit) Tablet 1 tab PO BID Qty: 60 5RF midodrine 5 mg Tablet 5 mg PO TID Qty: 90 4RF Rx Instructions: do not give last dose of day after 6PM or within 4 hrs of bedtime sucralfate 100 mg/mL suspension 10 ml PO TID Qty: 1000 0RF ondansetron 8 mg tablet,disintegrating 8 mg PO Q8H PRN (Reason: Nausea) Qty: 30 3RF albuterol sulfate 90 mcg/actuation HFA aerosol inhaler 2 puff inhalation Q4H PRN (Reason: Shortness Of Breath Or Wheezing) atorvastatin 80 mg tablet 80 mg PO QPM loratadine 10 mg tablet 10 mg PO DAILY PRN (Reason: Allergic Symptoms) Incruse Ellipta 62.5 mcg/actuation blister with device 1 inh inhalation DAILY cyanocobalamin (vitamin B-12) 1,000 mcg tablet 1,000 mcg PO DAILY diphenhydramine HCl 25 mg capsule 25 mg PO BEDTIME tramadol 50 mg tablet 50 mg PO TID PRN (Reason: Pain) potassium chloride 10 mEq capsule, extended release 10 meq PO BID ferrous gluconate 324 mg (38 mg iron) tablet 324 mg PO DAILY polyethylene glycol 3350 17 gram/dose powder 17 g PO DAILY sennosides-docusate sodium [Stool Softener-Stimulant Laxat] 8.6-50 mg tablet 8.6 - 50 tab PO DAILY bisacodyl 5 mg tablet,delayed release (DR/EC) 10 mg PO BID 2 Days Qty: 8 1RF glycerin (child) Suppository 2 supp SD DAILY 7 Days Qty: 12 1RF mirabegron [Myrbetriq] 25 mg tablet extended release 24 hr 25 mg PO DAILY 30 Days Qty: 30 3RF Interventions: ED Discharge Assessment Last Done: 11/20/24 19:42 Discharge Date/Time: 11/20/24 19:49 Print Language: Com[place]an
--- NOTE | 2024-11-20 12:23 | ECG_ITS ---
Test Reason : DIZZINESS Blood Pressure : */* mmHG Vent. Rate : 68 BPM Atrial Rate : 68 BPM P-R Int : 106 ms QRS Dur : 88 ms QT Int : 406 ms P-R-T Axes : -18 5 38 degrees QTcB Int : 431 ms Sinus rhythm with short NM Otherwise normal ECG When compared with ECG of 24-Mar-2024 11:53, No significant change was found Referred By: Lillian Vanegas Electronically Signed By: ABDELRAHMAN MATHIAS
[2024-11-20 13:33] LABS: Alanine Aminotransferase 14 U/L (0-31); Albumin Level 3.9 g/dL (3.5-5.0); Alkaline Phosphatase 121 U/L (39-117); Anion Gap 12 (12-20); Aspartate Amino Transferase 24 U/L (5-31); Blood Urea Nitrogen 23 mg/dL (9-16); Calcium 8.6 mg/dL (8.4-10.2); Carbon Dioxide 26 mmol/L (22-29); Chloride 110 mmol/L (96-108); Creatinine Clr Calc Pharmacy 25.2; Estimated Glomerular Filt Rate 31; Magnesium 2.2 mg/dL (1.6-2.6); Potassium 4.6 mmol/L (3.3-5.1); Sodium 143 mmol/L (135-145); Total Protein 6.4 g/dL (6.5-8.0)
[2024-11-20 13:37] LABS: Troponin-I High Sensitivity 4.2 ng/L (<3.5-17.0)
[2024-11-20 13:57] LABS: Hematocrit 31.2 % (37.0-47.0); Hemoglobin 10.4 g/dl (12.0-16.0); Imm Gran Abs Auto 0.02 X10*3/uL (0.00-0.03); Imm Gran Pct Auto 0.4 % (0.0-0.4); Lymphocytes Absolute Auto 1.3 X10*3/uL (1.2-4.9); Mean Corpuscular HGB Conc 33.3 g/dl (31.0-35.0); Mean Corpuscular Hemoglobin 30.7 pg (27.0-33.0); Mean Corpuscular Volume 92.0 fL (80.0-98.0); NRBC Abs Auto 0.000 X10*3/uL (0.0-0.012); NRBC Pct Auto 0.0 /100WBC (0.0-0.2); Platelet Count 188 X10*3/uL (160-400); Red Blood Count 3.39 X10*6/uL (4.20-5.50); White Blood Count 5.5 X10*3/uL (4.8-10.8)
[2024-11-20 13:58] LABS: MANUAL DIFF FLAG NO
[2024-11-20 16:36] LABS: Appearance Urine Clear; Glucose Urine UA Negative (Negative); PH 6.5 (5.0-9.0); Specific Gravity - Urine 1.010 (1.005-1.025); UMIC TRIGGER UACC YES
[2024-11-20 16:38] LABS: UACC Culture Trigger YES
--- OUTSIDE RECORDS SUMMARY | 2024-11-20 16:56 | XMS_ITS | Clinical Summary ---
Author Organization [facility] Facility Address [address] [address] Care Team Providers Care Director [employer] Name Role Phone Mis Gutierrez MD Primary Care Provider [phone] Allergies Active Allergy Reactions Criticality Noted Date Comments Codeine Rash High 12/26/2022 Ibuprofen Rash High 06/10/2010 Other reaction(s): unspecified Other reaction(s): rash, swelling Penicillin V Other (see comments) 07/28/2021 Penicillins Other (see comments),Rash High 06/10/2010 Other reaction(s): unspecified Other reaction(s): rash, swelling Other reaction(s): Unknown Other reaction(s): unspecified Other reaction(s): unspecified Medications Umeclidinium [place] (Incruse Ellipta) 62.5 MCG/INH aerosol powder Active [...] evening and 1 tablet before bedtime. Active traMADol (ULTRAM) 50 MG tablet TAKE 1 TABLET BY MOUTH EVERY 8 HOURS NEEDED FOR SEVERE PAIN FOR UP TO 28 DAYS Active Active Problems Problem Noted Date Diagnosed [...] 03/01/2015 Chronic kidney disease stage 2 03/01/2015 Encounters Date Type Department Care Team Description 09/15/2024 1:45 PM EDT Office Visit [facility] [address] [place] [address] Jerry Mitchell MD Stage 3a chronic kidney disease (HCC) (Primary Dx); Hypertensive renal disease from Last 3 Months Immunizations Immunization Administration Dates Next Due Influenza [...] Sign Reading Time Taken Comments Blood Pressure 110/64 09/15/2024 1:37 PM EDT Pulse 76 09/15/2024 1:37 PM EDT Temperature - - Respiratory Rate - - Oxygen Saturation 92% 09/15/2024 1:37 PM EDT Inhaled Oxygen Concentration - - Weight 57 kg (125 lb 9.6 oz) 09/15/2024 1:37 PM EDT Height 160 cm (5' 3 ) 05/31/2020 12:00 PM EST Body Mass Index 22.25 05/31/2020 12:00 PM EST Plan of Treatment Upcoming Encounters Date Type Department Care Team (Late st Contact Info) Description 09/21/2025 1:30 PM EDT Office Visit [facility] [address] [facility] [place] [id number] Jerry Mitchell MD [address] [facility] [address] [place] [address] Health Maintenance Due Date Last Done Comments Influenza Vaccine (#1) 2025 2, 02/20/2018, 05/03/2017, Additional history exists Pneumococcal Vaccine: 50+ Years Completed 02/20/2018, 05/31/2015, 05/11/2009 Pneumococcal Vaccine: Peds (0 to 5 Years) and At-Risk Patients (6 to 49 Years) Discontinued 02/20/2018, 05/31/2015, 05/11/2009 Hepatitis B Vaccine Aged Out No longe r eligible based on patient's age to complete this topic [place] [address] ([id number]) [place] [address] ([id number]) Care Teams Director [employer] Relationship Specialty Start Date End Date Mis Gutierrez MD [address] [place] [id number] PCP - General Family Medicine 09/10/23
--- OUTSIDE RECORDS SUMMARY | 2024-11-20 16:56 | XMS_ITS | Data Portability ---
Author Organization [employer], [facility] [place] Address [address] [place] [address] Care Team Providers Care Attorney Lawyer Name Role Phone HIM CCA OTHER Assessment Encounter Date Assessment Date Assessment LastModified by Organization Details LastModified Time 10/25/2023 10/25/2023 I provided real -time medical direction via phone for this encounter and was available for additional phone-based assistance as needed. I have reviewed and agree with the Assessment and Plan as documented by the Field Crop Harvest Worker. Patient given the opportunity to ask questions. Our service contacted for an assessment of: a rash As per above, patient has a rash on the neck for several days. Is pruritic. Denies any new medications, exposures to new environmental toxins, creams, lotions, soaps, etc. No new pets or animals in the house. Per document management consultant on the scene, VSS. Non-toxic. Please see uploaded pictures. Impression: Likely eczema Plan: For now - hydrate, use usual soap and use usual lotion liberally to the area. Can try hydorcortisone cream. [email or web address] Not available 10/25/2023 14:20:48 08/07/2024 08/07/2024 I have reviewed and agree with the assessment and plan as documented by the document management consultant. I provided real time medical direction for this encounter and was immediately available to provide additional phone based assistance as needed. History as noted by document management consultant. Pt with history of COPD/asthma, HTN, ? [...] recorded. Lab rapid flu (A+B) [address], [phone] 5 15:10:48 rapid SARS CoV 2 Ag, QL IA, respiratory specimen [address], [address] 5 15:09:47 BMP, serum or plasma 2023 [email or web address], [address] 4 21:45:00 cmp, whole blood + tosin 2023 [email or web address], [address] 4 14:05:12 Referral None recorded. Procedures None recorded. Surgeries None recorded. Imaging None recorded. Medication Orders furosemide 10 mg/mL injection syringe 2023 024 [email or web address] Not available 4 12:49:04 Patient TargetsNo targets recorded. Patient InstructionsNo instructions recorded. Reason for Referral None Reported. Results Created Date Observation Date Name Description Value Unit Range Abnormal Flag Note LastModifiedBy Organization Detail LastModifiedTime 06/14/19 24 06/14/2023 cmp, whole blood + picco lo BUN 10 Not Available [facility] - [facility] [address], [address] 06/14/2023 12:48:42 06/14/19 24 06/14/2023 cmp, whole blood + picco lo CRE 0.8 Not Available [facility] [address], [address] 06/14/2023 12:48:42 06/14/19 24 06/14/2023 cmp, whole blood + picco lo GLU 101 Not Available [facility] [address], [address] 06/14/2023 12:48:42 06/14/19 24 06/14/2023 cmp, whole blood + picco lo K+ 4.6 Not Available [facility] [address], [address] 06/14/2023 12:48:42 06/14/19 24 06/14/2023 cmp, whole blood + picco lo Na+ 145 Not Available [facility] [address], [address] 06/14/2023 12:48:42 08/08/19 25 08/07/2024 rapid flu (A+B) Flu negati ve Not Available [facility] ed [address] [place] [address], [phone] 08/07/2024 12:45:41 08/08/19 25 08/07/2024 rapid SARS CoV 2 Ag, QL IA, respi rator y speci men rapid SARS CoV 2 Ag, QL IA, respiratory specimen negati ve Not Available [facility] ed [address] [place] [address], [phone] 08/07/2024 12:45:46 Result Notes None recorded. Medical [...] t Available Vitals Date Recorded Respiratory rate Body weight Body height Heart rate Oxygen saturation Oxygen saturation in Arterial blood by Pulse oximetry Body temperature Systolic And Diastolic Provider Name and Address Organization Details Last Updated DateTime 4 16 /min 124019. 776 g 152.4 cm 83 /min 99 % 99 % 98.3 [degF] 116/63 mm[Hg] Not Available [facility] - production 4 12:12:28 Date Recorded Heart rate Respiratory rate Oxygen saturation Oxygen saturation in Arterial blood by Pulse oximetry Body temperature Body weight Systolic And Diastolic Provider Name and Address Organization Details Last Updated DateTime 4 88 /min 16 /min 98 % 98 % 97.6 [degF] 01562.1 6 g 132/78 mm[Hg] Not Available [facility] - production 4 11:32:10 Date Recorded Respiratory rate Oxygen saturation Oxygen saturation in Arterial blood by Pulse oximetry Body temperature Heart rate Systolic And Diastolic Provider Name and Address Organization Details Last Updated DateTime 5 18 /min 100 % 100 % 98.3 [degF] 71 /min 112/67 mm[Hg] Not Available [facility] - production 5 12:42:29 Date Recorded Body weight Heart rate Respiratory rate Body temperature Oxygen saturation Oxygen saturation in Arterial blood by Pulse oximetry Systolic And Diastolic Provider Name and Address Organization Details Last Updated DateTime 4 01376.5 68 g 82 /min 16 /min 98.2 [degF] 99 % 99 % 104/62 mm[Hg] Not Available [facility] - production 4 14:18:31 Date Recorded Respiratory rate Heart rate Body weight Oxygen saturation Oxygen saturation in Arterial blood by Pulse oximetry Body temperature Systolic And Diastolic Provider Name and Address Organization Details Last Updated DateTime 3 18 /min 88 /min 26888.3 6 g 99 % 99 % 98.4 [degF] 99/66 mm[Hg] Not Available [facility] - production 3 13:46:08 Social History None recorded. Functional Status None recorded. Mental Status None recorded. Family History Nothing Reported. Medical History No medical history recorded. Gynecological HistoryNo gynecological history recorded. Obstetrics History GPAL:G 0 P 0 0 0 0 Past Encounters Encounter ID Performer Location Encounter Start Date Encounter Closed Date Diagnosis/Indication Diagnosis SNOMED-CT Code Diagnosis ICD10 Code Diagnosis Note [id number] Pelon Fuentes MD [facility] - [facility] [address] [place] [phone] 03/23/2023 13:46:05 03/25/2023 15:39:55 Hypotensive episode 58064870 I95.9 Family reports episode of hypotensio n yesterday before taking blood pressure medication (midodrine ). Denies need for visit today and reports patient is at her baseline. As such, labs deferred. Recommende d close collaborat ion with primary team. [id number] Kamila Pinto MD Main - [facility] [address] [place] [phone] 06/14/2023 12:12:19 06/14/2023 21:49:37 Edema of lower extremity 690133519 R60.0 77 year old female being evaluated [...] assessment and plan as documented by the document management consultant. I provided real-time medical direction for this encounter and was immediatel y available to provide additional phone-base d assistance as needed. We discussed the diagnostic uncertaint y of home visits and associated risks. We discussed the need to seek care urgently/e mergently in the setting of any new or worsening symptoms. Congestive heart failure 56694247 I50.9 [id number] Cyrus Conteh MD Main - [address] [phone] 06/16/2023 11:31:55 06/18/2023 13:06:21 Edema of lower extremity 251055348 R60.0 As noted, we were called to see this patient regarding concerns of edema. Evaluation in the field was performed by my document management consultant colleague, as noted above, I provided real-time [...] symptoms, particular ly fever, LH, prostratio n. [id number] Linnette Sommer MD Main - [facility] [address] [place] [phone] 10/25/2023 14:18:25 10/25/2023 20:34:21 Pruritic rash 18348015 L28.2 [id number] Bo Perera MD Main - [facility] [address] [place] [phone] 08/07/2024 12:42:17 08/07/2024 15:38:38 Acute upper respiratory infection 69826784 J06.9 Health Concerns Section Related Observation LastModified by Organization Detai ls LastModified Time None Recorded Concern Status LastModified by Organization Details LastModified Time None Recorded Advance Directives Directive None Recorded Payers Insurance Date Sequence Insurance Name Policy Number Policy Funez Covered Member ID Funez Member ID Guarantor Name 08/07/2024 1 [facility] - DOS ON OR AFTER 2022 - DUAL ELIGIBLE - CUSTODIAL OPTIONS AND ONE CARE (MEDICARE REPLACEMENT/ADV ANTAGE - HMO) Delmy Ann [id number] Delmy Ann Notes Date Note Type Note [...] ..................... ..................... ..................... ..................... ..................... ..................... ............... Field Crop Harvest Worker Note From Andrae Bell: Pt has no complaints today. Is eating. Seems to be confusion as to why the visit according to [facility] and PT. They sts the RN that [...] Lungs clear bilaterally. Pt sts feels great. [facility] contacted and pt educated on signs indicating the ER. ..................... ..................... ..................... ..................... ..................... ..................... ............... Disposition: Fulfilled Pelon Fuentes MD [address] [facility],[address], [place], [address], [employer] 03/23/2023 13:47:59 06/14/2023 text/html HPI: Swelling of [...] advised of disposition, no appt availability in [facility]. Agrees to [employer] for eval. ..................... ..................... ..................... ..................... ..................... ..................... ............... CRC Nurse Triage Notes (Padmini Copeland): Comments: Reviewed HPI- no further info needed HPazain RN ..................... ..................... ..................... ..................... ..................... ..................... ............... Field Crop Harvest Worker Note From Shmuel Doe: [employer] visit for patient with lower extremity edema. [...] and tender to palpation. Pictures taken for [facility] review. Vital signs taken and WNL. Pt afebrile. Consulted with [facility] who advised drawing istat labs and establishing iv for lasix administration. I stat labs drawn as follows: Na 145, K 4.6, Cl 106, iCa 1.13, TCO2 27, Glu 101, BUN 10, Creatinine 0.8, Hct 28, Hb 9.5 Anion gap 18. Consulted with [facility] who ordered 20 mg IV lasix administered on scene and follow up scheduled for 48 hours later. Patient education provided. [facility] Lab Orders: cmp, whole blood + tosin: Performed ..................... ..................... ..................... ..................... ..................... ..................... ............... Disposition: Fulfilled Kamila Pinto MD [address] [place] [address],[address], [place], [address], [facility] [employer] 06/14/2023 14:05:23 06/16/2023 text/html HPI: Edema on LE, treated by NAIMA on 06/14 with IV Lasix and requires a F/u in 48 hrs. Member is a 77-year-old Citizen [place] speaking female, on [facility] Palliative services for diagnosis of Malignant Neoplasm of Stomach in the setting of 40-pound weight loss (155 to 110 lb). Other DX are COPD, Stage 3 CKD, vertigo, UTI, bilateral cataract, OA, gastric lymphoma, carpel tunnel syndrome and is on Chemo every 2 weeks at [facility] for 06/19/23, ..................... ..................... ..................... ..................... ..................... ..................... ............... CRC Nurse Triage Notes (León Pina): Comments: No further information required to process visit. 06/16 - Outreach call to the member for a wellness check - Member reports lower extremity swelling - S/S remain the same - Follow up visit requested - Ean YOUNG ..................... ..................... ..................... ..................... ..................... ..................... ............... Field Crop Harvest Worker Note From Andrae Bell: Pt f/u from [...] ............... Disposition: Fulfilled Cyrus Conteh MD [address] [facility],[address], [place], [address], [employer] 06/17/2023 21:45:06 10/25/2023 text/html HPI: 77yo female [...] ..................... ..................... ..................... ..................... ..................... ..................... ............... Field Crop Harvest Worker Note From Andrae Bell: Pt co itching [...] hive like bumps pink in color. Afebrile. [facility] contacted and advised to follow up with pcp for referral to pc network technician. Pt advised to use hydrocortisone cream vs Benadryl. Pt education on signs indicating the ER. ..................... ..................... ..................... ..................... ..................... ..................... ............... Disposition: Fulfilled Linnette Sommer MD [address] [place] [address],[address], [place], [address], [employer] 10/25/2023 14:20:59 08/07/2024 text/html This was a super vised home visit with document management consultant Jonas White. HPI: cough x1 week and [...] increase ; CoughDenies: Increased work of breathing/labored with or without fever Unable to speak in full sentences without distress Discoloration of skin -cyanosis Needs to sleep sitting up, can t catch breath Shortness of breath in setting of confusion Chief Complaints: CoughPMH: Cancer, COPD/Asthma, HypertensionPMH Reviewed at 08/06/2024:Allergies Reviewed at 08/06/2024: Field Crop Harvest Worker Organization Information for Jonas White Legal Name: [employer]. Address: [address] [place] [id number], Medical Director: Toni Foster [facility] No.: [id number] Field Crop Harvest Worker POC Test Results from Jonas White Rapid COVID antigen (12:39:30)COVID: -Attachments uploaded as part of this test result can be found under Documents section. Rapid influenza antigen (12:39:31)Flu: -Attachments uploaded as part of this test result can be found under Documents section. ..................... ..................... ..................... ..................... ..................... ..................... ............... Field Crop Harvest Worker Note From Jonas White: SC6 dispatched to [...] she feels that her symptoms are improving. [facility] visit requested by visiting nurse to rule out COVID/FLU. Patient reports normal food/fluid intake and has been medication compliant. Patient denies any chest pain, NVD, or shortness of breath. Patient vital signs obtained as noted. COVID/FLU POC obtained as noted and negative for all. [facility] consulted, advised that patient symptoms should be subsiding in the next week. No further treatments or testing ordered. Red flags discussed with patient and advised to call back or call 911 if condition worsens. SC6 clear. [facility] Lab Orders: rapid flu (A+B): Performed rapid SARS CoV 2 Ag, QL IA, respiratory specimen: Performed ..................... ..................... ..................... ..................... ..................... ..................... ............... [facility] Consulted: Bo Perera ..................... ..................... ..................... ..................... ..................... ..................... ............... Disposition: Fulfilled Bo Perera MD [address] [place] [address],[address], [place], [address], [employer] [facility] [employer] [facility] 08/07/2024 13:37:53 OBGyn Episode No OBEpisode recorded.
[2024-11-20 17:14] LABS: Troponin-I High Sensitivity 4.9 ng/L (<3.5-17.0)
[2024-11-20] MEDS: Lactated Ringers 1,000 ML 999 ML IV (17:26)
--- NOTE | 2024-11-20 17:30 | PC.NURSE ---
port to right chest accessed for IV fluids after x [address] peripheral IV line. Positive blood return , IV fluids infusing per mar
--- NOTE | 2024-11-20 19:48 | PC.NURSE ---
states to provider that dizziness is now resolved
== END 2024-11-20 19:49 | disposition home or self-care (01) ==
PROVIDERS: Physician Assistant Medical; Registered Nurse Emergency; Emergency Provider Emergency Medicine; PCP Family Medicine
DX: N39.0 Urinary tract infection, site not specified (principal); R11.2 Nausea with vomiting, unspecified; R42 Dizziness and giddiness; R94.31 Abnormal electrocardiogram [ECG] [EKG]; M79.672 Pain in left foot; M79.671 Pain in right foot; Z79.899 Other long term (current) drug therapy; Z87.891 Personal history of nicotine dependence
CPT/HCPCS: 36415; 80053; 81001; 83735; 84484; 85025; 87040; 87086; 93005; 96361; 96374; 99284; 99285; J0696; J7120

== ENCOUNTER → 2024-11-20 12:23 | Outpatient (BNV) | payer OTHER, SELFPAY | PROVIDERS: Emergency Provider Emergency Medicine; PCP Family Medicine; Visit Provider Internal Medicine | DX: R42 Dizziness and giddiness (principal) | CPT/HCPCS: 93010 ==

== ENCOUNTER 2024-12-03 09:00 | Outpatient (REF) | payer OTHER, SELFPAY ==
--- NOTE | ~2024-12-03 | US_ITS ---
CLINICAL HISTORY: N39.41 - Urge incontinence US Renal Comparison: CT/SR - CT ABDOMEN PELVIS W IV CON - 09/03/24 12:37 EDT Findings: Right kidney normal echotexture, 8.4 cm length. 4 mm midpole cyst. Left kidney normal echotexture, 7.6 cm length. 5 mm upper pole cyst. There is fullness of the right renal pelvis. Normal color Doppler. Urinary bladder is unremarkable. Prevoid volume 275 mL. Postvoid volume 7 mL. Bilateral ureteral jets are visualized. IMPRESSION: Pelviectasis of the right kidney. Small size bilateral kidney. This document has been electronically signed by: Galo Gutierrez MD on 12/03/2024 13:23:02
--- OUTSIDE RECORDS SUMMARY | 2024-12-03 09:26 | XMS_ITS | Clinical Summary ---
Author Organization [facility] Address [address] [address] Care Team Providers Care Maintenance Mechanic Elevators Name Role Phone Mis Gutierrez MD Primary Care Provider [phone] Allergies Active Allergy Reactions Criticality Noted Date Comments Codeine Rash High 12/26/2022 Ibuprofen Rash High 06/10/2010 Other reaction(s): unspecified Other reaction(s): rash, swelling Penicillin V Other (see comments) 07/28/2021 Penicillins Other (see comments),Rash High 06/10/2010 Other reaction(s): unspecified Other reaction(s): rash, swelling Other reaction(s): Unknown Other reaction(s): unspecified Other reaction(s): unspecified Medications Umeclidinium [place] (Incruse Ellipta) 62.5 MCG/INH aerosol powder Active [...] Visit [facility] [address] [place] [address] Jerry Mitchell [...] Visit [facility] [address] [place] [place] [address] Jerry Mitchell MD [address] [facility] [address] [place] [address] Health Maintenance Due Date Last Done Comments Influenza Vaccine (#1) 2025 2, 02/20/2018, 05/03/2017, Additional history exists Pneumococcal Vaccine: 50+ Years Completed 02/20/2018, 05/31/2015, 05/11/2009 Pneumococcal Vaccine: Peds (0 to 5 Years) and At-Risk Patients (6 to 49 Years) Discontinued 02/20/2018, 05/31/2015, 05/11/2009 Hepatitis B Vaccine Aged Out No longe r eligible based on patient's age to complete this topic [place] [address] ([id number]) [place] [address] ([id number]) Care Teams Maintenance Mechanic Elevators Relationship Specialty Start Date End Date Mis Gutierrez MD [address] [place] [id number] PCP - General Family Medicine 09/10/23
--- OUTSIDE RECORDS SUMMARY | 2024-12-03 09:26 | XMS_ITS | Clinical Summary ---
Author Organization [employer] Address [address] [facility] [address] [place] [address] Care Team Providers Care Learning Support Assistant Name Role Phone Mis Gutierrez MD Primary Care Provider [phone] Allergies Active Allergy Reactions Criticality Noted Date [...] 2 and 3 of chemo 023 Active fludrocortisone (Florinef) 0.1 MG tablet Take 1 tablet by mouth 1 (one) time each day. 023 Active Cholecalciferol (Vitamin D) 125 MCG (5000 UT) capsule Take 1 tablet by mouth in the morning. Active GaviLyte-G 236 g solution MIX WITH WATER PER PACKAGE. DRINK 240mls EVERY 10 MINUTES DIRECTED FOR COLONOSCOPY (SPLIT PREPARATION) UNTIL FECAL EFFLUENT IS CLEAR 024 Active albuterol 108 (90 Base) MCG/ACT inhaler Inhale 2 puffs every 4 (four) hours. inhale 2 puffs by Inhalation route every 4 hours as needed 18 g 11 07/25/2 024 Active Umeclidinium Castell (Incruse Ellipta) 62.5 MCG/ACT aerosol powder Inhale 1 puff Once per day. 30 each 11 Active acetaminophen (Tylenol) 500 MG tablet Take 2 tablets (1,000 mg) by mouth every 8 (eight) hours if needed for mild pain. 30 tablet Active omeprazole (PriLOSEC) [address] capsule [...] at bedtime for itching. 60 capsule Active midodrine (Proamatine) 5 MG tablet TAKE 1 TABLET BY MOUTH THREE TIMES DAILY 90 tablet 3 Active polyethylene glycol, PEG, 3350 (MiraLax) 17 GM/SCOOP powderIndications :Constipation, unspecified constipation type Take 17 g by mouth Once per day. 527 g 2 Active senna-docusate sodium (Senokot-S) 8.6-50 MG tabletIndications :Constipation, unspecified constipation type Take 2 tablets by mouth if needed for constipation. 60 tablet 11 024 2024 Active loratadine (Claritin) 10 MG tabletIndications :Constipation, unspecified constipation type TAKE 1 TABLET BY MOUTH EVERY DAY NEEDED FOR ALLERGIES 90 tablet 1 Active atorvastatin (Lipitor) 80 MG tablet TAKE 1 TABLET BY MOUTH EVERY DAY AT BEDTIME 90 tablet 1 Active triamcinolone (Kenalog) 0.5 % ointment APPLY 1 GRAM TOPICALLY TWICE DAILY 90 g 2 Active albuterol (2.5 MG/3ML) 0.083% nebulizer solution INHALE 1 AMPULE USING A NEBULIZER EVERY 4 HOURS NEEDED 90 mL 2 025 Active Bisacodyl EC 5 MG EC tablet Take 10 mg by mouth 2 times daily. 025 Active Myrbetriq 25 MG 24 hr tablet Take 1 tablet by mouth Once per day. 025 Active ondansetron ODT (Zofran-ODT) 8 MG disintegrating tabletIndications :Vomiting in adult Take 1 tablet (8 mg) by mouth every 8 (eight) hours if needed for nausea. 20 tablet 025 Active sucralfate (Carafate) 1 GM/10ML suspension TAKE 10 ML BY MOUTH THREE TIMES DAILY 1000 mL 5 025 Active Calcium Carb-Cholecalcife rol 600-10 MG-MCG tablet TAKE 1 TABLET BY MOUTH TWICE DAILY 180 tablet 1 025 Active ferrous gluconate (Fergon) 324 (38 Fe) MG tablet TAKE 1 TABLET BY MOUTH EVERY DAY WITH BREAKFAST 90 tablet 1 025 Active traMADol (Ultram) 50 MG tabletIndications :Right hip pain TAKE 1 TABLET BY MOUTH EVERY 8 HOURS NEEDED FOR SEVERE PAIN 84 tablet 025 Active cefuroxime (Ceftin) 250 MG tablet 025 Active traMADol (Ultram) 50 MG tabletIndications :Right hip pain Take 1 tablet (50 mg) by mouth every 8 (eight) hours if needed for severe pain. 84 tablet 025 2024 Discontinued Active Problems Problem Noted Date Diagnosed Date Vomiting in adult 09/25/2024 Assessment & Plan (10/10/2024 1:29 PM EDT): Patient has a history of vomiting, for which Zofran was prescribed approximately [address] Becerril. The current status of these symptoms is unclear, but management options are being proactively discussed. Plan: - Prescribe Zofran for nausea and vomiting - Instruct patient to report if vomiting continues or worsens - Follow up in 4 months or sooner if symptoms persist Itching of ear 09/25/2024 Assessment & Plan (10/10/2024 1:28 PM EDT): This condition appears to be causing discomfort and requires symptomatic management. Plan: - Prescribe ear drops for itching - Educate patient on proper application of ear drops - Follow up in 4 months or sooner if symptoms persist or worsen Gastric ulcer 05/12/2024 Mixed stress and urge urinary incontinence 05/12 Assessment & Plan (10/10/2024 1:27 PM EDT): Patient has been experiencing symptoms of overactive bladder, necessitating a change in medication. The urologist, Dr. Maxwell, has recently modified the treatment plan from tolterodine to Myrbetriq. Plan: - Discontinue tolterodine - Start Myrbetriq as prescribed by urologist - Monitor for improvement in overactive bladder symptoms - Follow up with urologist Dr. 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 Previous treatment with tramadol was effective in managing symptoms. Plan: - Consider prescribing tramadol for pain management, pending review of current medication regimen and potential interactions - Educate patient on proper use and potential side effects of tramadol - Monitor efficacy and adjust treatment as necessary Malignant neoplasm of stomach, unspecified locat ion 12/08/2022 Assessment & Plan (12/08/2022 10:18 AM EDT): Patient with recent diagnoses of stomach cancer. Oncology appointment scheduled for 12/15/22. Given limited supply of oxy while at [facility] which provides relief of symptoms. Will send refill of oxy for continued symptom relief. Generalized abdominal pain 11/03/2022 Hypotension 11/03/2022 Assessment [...] that she had had a visit with [facility] and that documentation was sent last month, [...] Albuterol 108 (90 base) MCG/ACT inhaler Umeclidinium Castell (Incruse Ellipta) 62.5 MCG/ACT aerosol powder CKD (chronic kidney disease) stage 2, GFR 60-89 ml/min 03/01/2015 Assessment & Plan (10/10/2024 1:26 PM EDT): Patient has stable chronic kidney disease, as evidenced by recent nephrology follow-up with Dr. Mitchell. No medication changes were recommended by the developer advocate. Patient was advised to avoid ibuprofen, suggesting potential concerns about renal function. Recent ultrasound results are pending review. Plan: - Continue current medication regimen as per developer advocate's recommendation - Avoid ibuprofen and other NSAIDs - Follow up with developer advocate Dr. Mitchell as scheduled on the - Review recent ultrasound results when available Essential hypertension 03/01/2015 Gastroesophageal reflux disease without esophagi tis 03/01/2015 Hyperlipidemia 03/01/2015 Impaired glucose tolerance 03/01/2015 Tobacco dependence syndrome 03/01/2015 Tubular adenoma of colon 03/01/2015 Psoriasis 03/01/2015 Resolved Problems Problem Noted Date Diagnosed Date Resolved Date Weight loss 11/03/2022 10/10/2024 Bilious vomiting with nausea 09/12/2022 02/11/2023 Assessment & Plan (09/12/2022 5:27 PM EDT): No fever/chills, no abdominal pain/distention, no diarhea, told to maintain well hydrated, continue with liquid diet for the next day, and transition to low fat/conditment diet for the next day Constipation 03/01/2015 02/11/2023 Encounters Date Type Department Care Team Description 11/21/2024 Telephone [facility] [address] [place], [place] [phone] Mis Gutierrez MD ER Follow-up 11/21/2024 Refill [facility] [address] [place] [address] Mis Gutierrez MD Right hip pain 11/20/2024 Orders Only GENERIC EXTERNAL DATA DEPARTMENT Provider, Generic External Data 10/12/2024 Refill [facility] [address] [place] [address] Mis Gutierrez MD 09/30/2024 Refill [facility] [address] [place] [address] Mis Gutierrez MD 09/25/2024 1:30 PM EDT Office Visit [facility] [address] [place] [address] Mis Gutierrez MD Trochanteric bursitis, right hip (Primary Dx); Vomiting in adult; Itching of ear; Right hip pain; Mixed stress and urge urinary incontinence; CKD (chronic kidney disease) stage 2, GFR 60-89 ml/min 09/25/2024 Travel 09/16/2024 Patient Outreach [facility] [address] [place] [address] Mis Gutierrez MD Pre-visit Planning (Pre visit planning LVM ) 09/04/2024 Refill [facility] [address] [place], [place] [phone] Mis Gutierrez MD 09/03/2024 Orders Only GENERIC EXTERNAL DATA DEPARTMENT Provider, Generic External Data from Last 3 Months Immunizations Immunization Administration Dates Next Due Influenza High-dose Quadriva [...] Sign Reading Time Taken Comments Blood Pressure 127/70 09/25/2024 1:41 PM EDT Pulse 70 09/25/2024 1:41 PM EDT Temperature 36.5 C (97.7 F) 09/25/2024 1:41 PM EDT Respiratory Rate 12 09/25/2024 1:41 PM EDT Oxygen Saturation 98% 09/25/2024 1:41 PM EDT Inhaled Oxygen Concentration - - Weight 55.3 kg (122 lb) 09/25/2024 1:41 PM EDT Height 152.4 cm (5') 09/25/2024 1:41 PM EDT Body Mass Index 23.83 09/25/2024 1:41 PM EDT Plan of Treatment Health Maintenance Due Date Last Done Comments Hepatitis C Screening 1963 COVID-19 Vaccine ( season) 2024 09/27/2021, 09/27/2021, 12/24/2020, Additional history exists Influenza Vaccine (#1) 2025 2, 03/20/2022, 02/20/2018, Additional history exists Alcohol/Substance Use Screening 04/11/2025 04/11/2024 Depression Screening 04/11/2025 04/11/2024, 04/11/20 DTaP/Tdap/Td Vaccines (2 - Td or Tdap) 09/25/2025 02/10/2011 Postponed from 02/10/2021 (Patient Refused) RSV Patients and Patients Aged 60 years or older (1 - 1-dose 75+ series) 09/25/2025 Postponed from 2021 (Patient Refused) SDOH Screening 09/25/2025 09/25/2024 Tobacco Screening 09/25/2025 09/25/2024 Zoster Vaccines (1 of 2) 09/25/2025 05/31/2015 Pos tponed from 07/26/2015 (Patient Refused) Lipid Panel 07/06/2026 07/06/2021, 06/07, 10/30/2019 Pneumococcal [...] patient's age to complete this topic Meningococcal B Vaccine Aged Out No l onger eligible based on patient's age to complete [...] Procedure Name Priority Date/Time Associated Diagnosis Comments BLOOD CULTURE (SECOND) Routine 5 7:24 PM EDT BLOOD CULTURE (FIRST) Routine 11/20/2024 7:07 PM EDT HIGH SENSITIVITY TROPONIN I Routine 11/20/2024 4:49 PM EDT CULTURE, URINE, ROUTINE Routine 11/20/2024 4:41 PM EDT URINALYSIS, COMPLETE, WITH REFLEX TO CULTURE Routine 11/20/2024 4:25 PM EDT CBC WITH AUTO DIFFERENTIAL Routine 11/20/2024 1:47 PM EDT HIGH SENSITIVITY TROPONIN I Routine 11/20/2024 1:11 PM EDT MAGNESIUM Routine 11/20/2024 1:11 PM EDT COMPREHENSIVE METABOLIC PANEL Routine 11/20/2024 1:[address] CHEST W CONTRAST Routine 09/05/2024 8 :[address] ABDOMEN PELVIS W CONTRAST Routine 09/05/2024 8:03 AM EDT POCT CREATININE GFR Routine 09/03/2024 1 2:41 PM EDT LIPID PANEL, STANDARD Routine 07/06/2021 9:26 AM EST from Last 3 Months or Most Recently Relevant to Health Maintenance Results * Blood Culture (Second) (11/20/2024 7:24 PM EDT) Blood Venous blood specimen / Unknown 11/20/2024 7:24 PM EDT 11/20/2024 7:30 PM EDT Comment:Blood Narrative [facility] - 11/25/2024 9:30 PM EDT Blood Culture (Second) No growth after 5 days. Specimen Source: Blood us Generic External Data Provider LAB MICROBIOLOGY - GENERAL ORDERABLES Final Result [facility] [address] [place] [phone] * Blood Culture (First) (11/20/2024 7:07 PM EDT) Blood Venous blood specimen / Unknown 11/20/2024 7:07 PM EDT 11/20/2024 7:27 PM EDT Comment:Blood Narrative [facility] - 11/25/2024 9:27 PM EDT Blood Culture (First) No growth after 5 days. Specimen Source: Blood Generic External Data Provider LAB MICROBIOLOGY - GENERAL ORDERABLES Final Result Performing Organization Address [facility] Co de Phone Number [facility] [address] [place] [phone] * High Sensitivity Troponin I (11/20/2024 4:49 PM EDT) Only the most recent of2 resultswithin the time period is included. TROPONIN I HIGH SENSITIVITY 4.9 <3.5 - 17.0 ng/L [facility] Comment:The Valenzuela high sens itivity Troponin-I results should beused in conjunction with other diagnostic information suchas ECG, clinical observations and information, and patientsymptoms to aid in the diagnosis of MO. 11/20/2024 4:49 PM EDT 11/20/2024 4:52 PM EDT Generic External Data Provider LAB BLOOD ORDERAB LES Final Result Performing Organization Address [facility]/ZIP Co de Phone Number [facility] [address] [place] [phone] * Culture, Urine, Routine (11/20/2024 4:41 PM EDT) Urine Urine specimen obtained by clean catch procedure / Unknown 11/20/2024 4:41 PM EDT 11/20/2024 4:41 PM EDT Comment:UACC Narrative [facility] - 11/22/2024 10:42 AM EDT Urine Culture Report Result Urine Culture 10,000 to 50,000 cfu/ml Urine Culture Mixed bacterial jorge a characteristic of Urine Culture urogenital contamination. Specimen Source: Urine clean catch Generic External Data Provider LAB MICROBIOLOGY - GENERAL ORDERABLES Final Result Performing Organization Address [facility]/ZIP Co de Phone Number [facility] [address] [place] [phone] * (ABNORMAL) Urinalysis, Complete, with Reflex to Culture (11/20/2024 4:25 PM EDT) Color Urine Yellow [facility] Appearance Urine Clear [facility] PH 6.5 5.0 - 9.0 [facility] Glucose Urine UA Negative Negative mg/dL [facility] Urine Blood Negative Negative [facility] Specific Wyatt - Urine 1.010 1.005 - 1.025 [facility] Urine Protein Negative Neg-Trace mg/dL [facility] Urine Ketones Negative Negative mg/dL [facility] Nitrite Urine Negative Negative [facility] Leukocyte Esterase Urine Large (3+)(A) Negative [facility] RBC Urine 0-2 0 - 2 /HPF [facility] Urine WBC 21-50(A) 0 - 5 /HPF [facility] Urine Squamous Epithelial Cell 0-2 0 - 2 /HPF [facility] Urine Bacteria None Seen None Seen [facility] Hyaline Casts, Urine 0-2 0 - 2 /LPF [facility] 11/20/2024 4:25 PM EDT 11/20/2024 4:30 PM EDT Narrative [facility] - 11/20/2024 4:40 PM EDT [id number], Clean Catch Generic External Data Provider LAB URINE ORDERAB LES Final Result Performing Organization Address [facility] Co de Phone Number [facility] [address] [place] [phone] * (ABNORMAL) CBC auto differential (11/20/2024 1:47 PM EDT) White Blood Count 5.5 4.8 - 10.8 X10*3/uL [facility] Red Blood Count 3.39(L) 4.20 - 5.50 X10*6/uL [facility] Hemoglobin 10.4(L) 12.0 - 16.0 g/dl [facility] Hematocrit 31.2(L) 37.0 - 47.0 % [facility] Mean Corpuscular Volume 92.0 80.0 - 98.0 fL [facility] Mean Corpuscular Hemoglobin 30.7 27.0 - 33.0 pg [facility] Mean Corpuscular HGB Conc 33.3 31.0 - 35.0 g/dl [facility] Red Cell Distribution Width 14.7 11.0 - 16.0 % [facility] Platelet Count 188 160 - 400 X10*3/uL [facility] Mean Platelet Volume 9.6 9.4 - 12.3 fL [facility] Neutrophils Percent Auto 62.5 45 - 73 % [facility] Imm Gran Pct Auto 0.4 0.0 - 0.4 % [facility] Lymphocytes Percent Auto 23.6 20 - 40 % [facility] Monocytes Percent Auto 10.0 2 - 11 % [facility] Eosinophils Percent Auto 3.1 0 - 4 % [facility] Basophils Percent Auto 0.4 0 - 2 % [facility] NRBC Pct Auto 0.0 0.0 - 0.2 /100WBC [facility] Neutrophils Absolute Auto 3.5 2.0 - 8.3 x10*3/uL [facility] Imm Gran Abs Auto 0.02 0.00 - 0.03 X10*3/uL [facility] Lymphocytes Absolute Auto 1.3 1.2 - 4.9 X10*3/uL [facility] Monocytes Absolute Auto 0.6 0.1 - 1.2 X10*3/uL [facility] Eosinophils Absolute Auto 0.2 0.0 - 0.4 X10*3/uL [facility] Basophils Absolute Auto 0.0 0.0 - 0.2 X10*3/uL [facility] NRBC Abs Auto 0.000 0.0 - 0.012 X10*3/uL [facility] 11/20/2024 1:47 PM EDT 11/20/2024 1:53 PM EDT Generic External Data Provider LAB BLOOD ORDERAB LES Edited Result - Final Performing Organization Address [facility]/ZIP Co de Phone Number [facility] [address] [place] [phone] * Magnesium (11/20/2024 1:11 PM EDT) Pathologist [facility] Magnesium 2.2 1.6 - 2.6 mg/dL [facility] 11/20/2024 1:11 PM EDT 11/20/2024 1:14 PM EDT Generic External Data Provider LAB BLOOD ORDERAB LES Final Result Performing Organization Address [facility] de Phone Number [facility] [address] [place] [phone] * (ABNORMAL) Comprehensive Metabolic Panel (11/20/2024 1:11 PM EDT) Pathologist [facility] Sodium 143 135 - 145 mmol/L [facility] Potassium 4.6 3.3 - 5.1 mmol/L [facility] Chloride 110(H) 96 - 108 mmol/L [facility] Carbon Dioxide 26 22 - 29 mmol/L [facility] Anion Gap 12 12 - 20 [facility] Urea Nitrogen (BUN) 23(H) 9 - 16 mg/dL [facility] Creatinine, Serum 1.59(H) 0.5 - 1.4 mg/dL [facility] Creatinine Clr Calc Pharmacy 25.2 [facility] Comment:Provided height and weight: 162.56 cm,55 kg.eGFR (calculated from the MDRD study equation) and eCrCl(calculated from the Cockcroft-Gault equation) are based ondifferent parameters and may not yield comparable results.If eCrCl result is absurd, please check patient'sheight/weight. Estimated Glomerular Filt Rate 31 [facility] Comment:Chronic Kidney Disea se: Estimated GFR < 60 mL/min/1.09g0Pkwyeu Kidney Disease: Estimated GFR < 15 mL/min/1.73m2 Glucose 96 60 - 115 mg/dL [facility] Calcium 8.6 8.4 - 10.2 mg/dL [facility] Bilirubin, Total 0.2 0.0 - 1.0 mg/dL [facility] Aspartate Amino Transferase 24 5 - 31 U/L [facility] Alanine Aminotransferase 14 0 - 31 U/L [facility] Total Protein 6.4(L) 6.5 - 8.0 g/dL [facility] Albumin Level 3.9 3.5 - 5.0 g/dL [facility] Alkaline Phosphatase 121(H) 39 - 117 U/L [facility] 11/20/2024 1:11 PM EDT 11/20/2024 1:14 PM EDT us Generic External Data Provider LAB BLOOD ORDERAB LES Final Result Performing Organization Address City/State/[facility] Co de Phone Number [facility] [address] [place] [phone] * CT Abdomen Pelvis w/ Contrast (09/05/2024 8:03 AM EDT) Anatomical Region Laterality Modality Body, Pelvis, Abdomen Computed T omography 09/05/2024 8:03 AM EDT Narrative 09/05/2024 8:04 AM EDT [place] [address] CT Scan Report Signed Patient: Delmy Ann MR#: [id number] 76 : 1945 Acct:[id number] Age/Sex: 79 / F ADM Date: 09/03/24 Loc: HO.CT Attending Dr: Rowena Becerril MD Ordering Physician: Rowena Becerril MD Date of Service: 09/03/24 Procedure(s): CT abdomen pelvis w IV con Accession Number(s): [id number] cc: Rowena Becerril MD; Mis Gutierrez MD Report Number: [id number]: Total DLP = 227.00 mGy-cm CLINICAL HISTORY: Gastric lymphoma CT abdomen and pelvis with contrast Comparison: None Findings: No consolidation or effusion. Unremarkable solid organs. There are no abnormal findings in the gallbladder fossa. No urolithiasis. No bowel obstruction, pneumoperitoneum, or pneumatosis. The stomach, incompletely distended, is questionable concentric wall thickening proximally without definite ulceration. There is an indeterminate 1.2 x 0.9 cm celiac axis lymph node Pelvic contents unremarkable. Normal appendix. The bones are intact. IMPRESSION: Nonspecific gastric wall changes possibly related to the patient's noted lymphoma with an indeterminate celiac axis lymph node. Comparison with prior studies, if available, would be of value. If not, consider PET-CT to further evaluate This document has been electronically signed by: Jer Lucero MD on 09/05/2024 08:03:35 Dictated By: Jer Lucero MD Signed By: <Electronically signed by Jer Lucero MD in OV> 09/05/24 0804 DD/ 08 TD/TT: 09/05/24 0803 Global Process Owner: Procedure Note Donotuseinterpreter, Image - 09/05/[address] [place] [address] [address] Scan Report Signed Patient: Delmy Ann LMR#: [id number] 76 : 1945cct:[id number] Age/Sex: 79 / FADM Date: 09/03/24 Loc: HO.CT Attending Dr: Rowena Becerril MD Ordering Physician: Rowena Becerril MD Date of Service: 09/03/24 Procedure(s): CT abdomen pelvis w IV con Accession Number(s): [id number] cc: Rowena Becerril MD; Mis Gutierrez MD Report Number: [id number]: Total DLP = 227.00 mGy-cm CLINICAL HISTORY: Gastric lymphoma CT abdomen and pelvis with contrast Comparison: None Findings: No consolidation or effusion. Unremarkable solid organs. There are no abnormal findings in the gallbladder fossa. No urolithiasis. No bowel obstruction, pneumoperitoneum, or pneumatosis. The stomach, incompletely distended, is questionable concentric wall thickening proximally without definite ulceration. There is an indeterminate 1.2 x 0.9 cm celiac axis lymph node Pelvic contents unremarkable. Normal appendix. The bones are intact. IMPRESSION: Nonspecific gastric wall changes possibly related to the patient's noted lymphoma with an indeterminate celiac axis lymph node. Comparison with prior studies, if available, would be of value. If not, consider PET-CT to further evaluate This document has been electronically signed by: Jer Lucero MD on 09/05/2024 08:03:35 Dictated By: Jer Lucero MD Signed By: <Electronically signed by Jer Lucero MD in OV> 09/05/24 0804 DD/ 08 TD/TT: 09/05/24 0803 Global Process Owner: [facility] External Provider IMG CT PROCEDURES Final Result * CT Chest w/ Contrast (09/05/2024 8:03 AM EDT) Anatomical Region Laterality Modality Body, Chest Computed Tomogra phy 09/05/2024 8:03 AM EDT Narrative 09/05/2024 8:04 AM EDT [place] [address] CT Scan Report Signed Patient: Delmy Ann MR#: [id number] 76 : 1945 Acct:[id number] Age/Sex: 79 / F ADM Date: 09/03/24 Loc: HO.CT Attending Dr: Rowena Becerril MD Ordering Physician: Rowena Becerril MD Date of Service: 09/03/24 Procedure(s): CT chest w IV con Accession Number(s): [id number] cc: Rowena Becerril MD; Mis Gutierrez MD Report Number: [id number]: Total DLP = 116.00 mGy-cm CLINICAL HISTORY: Gastric lymphoma, restaging CT chest with contrast Comparison: None Findings: The heart is normal size. The visualized thyroid and mediastinum are unremarkable. No consolidation or effusion. The bones are intact. IMPRESSION: 1. Unremarkable chest CT. This document has been electronically signed by: Jer Lucero MD on 09/05/2024 08:03:45 Dictated By: Jer Lucero MD Signed By: <Electronically signed by Jer Lucero MD in OV> 09/05/24803 DD/ 2 TD/TT: 09/05/24802 Global Process Owner: Procedure Note Donotuseinterpreter, Image - 09/05/[address] [place] [address] [address] Scan Report Signed Patient: Delmy Ann LMR#: [id number] 76 : 1945cct:[id number] Age/Sex: 79 / FADM Date: 09/03/24 Loc: HO.CT Attending Dr: Rowena Becerril MD Ordering Physician: Rowena Becerril MD Date of Service: 09/03/24 Procedure(s): CT chest w IV con Accession Number(s): [id number] cc: Rowena Becerril MD; Mis Gutierrez MD Report Number: [id number]: Total DLP = 116.00 mGy-cm CLINICAL HISTORY: Gastric lymphoma, restaging CT chest with contrast Comparison: None Findings: The heart is normal size. The visualized thyroid and mediastinum are unremarkable. No consolidation or effusion. The bones are intact. IMPRESSION: 1. Unremarkable chest CT. This document has been electronically signed by: Jer Lucero MD on 09/05/2024 08:03:45 Dictated By: Jer Lucero MD Signed By: <Electronically signed by Jer Lucero MD in OV> 09/05/24803 DD/ 2 TD/TT: 09/05/24802 Global Process Owner: [facility] External Provider IMG CT PROCEDURES Final Result * POCT Creatinine GFR (09/03/2024 12:41 PM EDT) POCT Creatinine 1.0 0.5 - 1.4 mg/dL [facility] GFR POC 55 [facility] Comment:Chronic Kidney Disea se: Estimated GFR < 60 mL/min/1.58j8Ueyyci Kidney Disease: Estimated GFR < 15 mL/min/1.73m2 09/03/2024 12:4 1 PM EDT 09/03/2024 2:29 PM EDT Narrative [facility] - 09/03/2024 2:31 PM EDT [id number] us Generic External Data Provider LAB POINT OF CARE TEST DOCKED DEVICE ORDERABLES Final Result [facility] [address] [place] [address] [phone] * (ABNORMAL) LIPID PANEL, STANDARD (07/06/2021 9:26 AM EST) Chol/HDLC Ratio 6.9(H) <5.0 (calc) [facility] Cholesterol, Total 236(H) <200 mg/dL [facility] HDL Cholesterol 34(L) > OR = 50 mg/dL [facility] LDL Cholesterol 168(H) mg/dL (calc) [facility] Comment: Reference range: <100 Desirable range <100 mg/dL for primary prevention; <70 mg/dL for patients with CHD or diabetic patients with > or = 2 CHD risk factors. LDL-C is now calculated using the Sánchez-Roni calculation, which is a validated novel method providing better accuracy than the Friedewald equation in the estimation of LDL-C. Sánchez DIAMOND et al. TERRENCE. 2013;310(19): 3344-5739 (http://education.[employer].com/faq/FTV859) Non-HDL Cholesterol 202(H) <130 mg/dL (calc) [facility] Comment: For patients with diabetes plus 1 major ASCVD risk factor, treating to a non-HDL-C goal of <100 mg/dL (LDL-C of <70 mg/dL) is considered a therapeutic option. Triglycerides 186(H) <150 mg/dL [facility] 07/06/2021 9:26 AM EST us Mis Gutierrez MD LAB BLOOD ORDERABLES Final Re sult [facility] [address] from Last 3 Months or Most Recently Relevant [place] [address] [facility] ASSISTED OPTIONS (HMO D-SNP) [place] [phone] , [place] [address] , [place] [address] Care Teams Learning Support Assistant Relationship Specialty Start Date End Date Mis Gutierrez MD [address] [facility], [place] PCP - General Family Medicine 12/31/20 Rowena Becerril MD Oncology 03/13/24 Natalya Balderrama MD Gastroenterology 03/13/24
--- OUTSIDE RECORDS SUMMARY | 2024-12-03 09:26 | XMS_ITS | Clinical Summary ---
Author Organization [facility] Address [address] [place] [address] Phone Care Team Providers Care Institutional Research Director Name Role Phone Rowena Becerril MD Unavailable Mis Gutierrez MD Primary Care Provider [phone] Allergies Active Allergy Reactions Criticality Noted Date Comments Ibuprofen 06/10/2010 Other reaction(s): unspecified Penicillins Unknown 06/10/2010 Other reaction(s): unspecified Medications acetaminophen (TYLENOL) 500 MG tablet Take 1 tablet by mouth. Active albuterol 2.5 mg /3 mL (0.083 %) nebulizer solution INHALE 1 AMPULE USING A NEBULIZER EVERY 4 HOURS NEEDED 3 Active atorvastatin (LIPITOR) 80 MG tablet Take 1 tablet by mouth every morning. 3 Active bisacodyl (DULCOLAX) 5 mg EC tablet TAKE 1 TABLET BY MOUTH EVERY DAY NEEDED FOR CONSTIPATION, DO NOT BREAK, CRUSH, DISSOLVE OR CHEW 3 Active cholecalciferol (VITAMIN D3) 5,000 unit tablet Take 1 tablet by mouth daily. 3 Active dicyclomine (BENTYL) 20 mg tablet Take 20 mg by mouth. 3 Active docusate sodium (COLACE) 100 MG capsule Take 1 capsule by mouth. Active fluticasone propionate (FLONASE) 50 mcg/actuation nasal spray USE 1 SPRAY IN EACH NOSTRIL TWICE DAILY 3 Active furosemide (LASIX) 20 MG tablet Take 1 tablet by mouth every morning. 3 Active loratadine (CLARITIN) 10 mg tablet Take 1 tablet by mouth daily as needed. 3 Active omeprazole (PRILOSEC) 20 MG capsule Take 1 capsule by mouth every morning. 3 Active INCRUSE ELLIPTA 62.5 mcg/actuation inhalation INHALE 1 PUFF EVERY DAY AT THE SAME TIME 3 Active ondansetron (ZOFRAN-ODT) 4 MG disintegrating tablet Take 4 mg by mouth every 8 (eight) hours as needed for nausea. Active Active Problems Problem Noted Date Diagnosed Date Diffuse large B-cell lymphoma of stomach 023 Cancer Staging:Clinical stage from 08/10/2023:Stage II(Diffuse large B-cell lymphoma) - Unsigned Hypertensive renal disease 07/28/202101/17 Constipation 03/01/2015 01/17/2023 Stage 2 chronic kidney disease 03/01/2015 0 01/17/2023 Social History Tobacco Use Types Packs/Day Years Used Date Smoking Tobacco: Former Cigarettes 0.5 47 Tobacco Cessation:Counseling Given: Not Answered Alcohol Use Standard Drinks/Week Comments Not Currently 0 (1 standard drink = 0.6 oz pur e alcohol) Education Answer Date Recorded Are you interested in more education? Not on camelia e 12/29/2022 Are you concerned about learning? Not on file 12/29/2022 No 12/29/2022 No 12/29/2022 Digital Access Answer Date Recorded No 12/29/2022 No 12/29/2022 Reliable internet access at home? Not on file 12/29/2022 Device with a working camera? Not on file Comments Unknown Sex and Gender Information Value Date Recorded Sex Assigned at Not on file Legal Sex Female 3:05 PM EDT Gender Identity Not on file Sexual Orientation Not on file Last Filed Vital Signs Vital Sign Reading Time Taken Comments Blood Pressure 113/70 07/30/2023 2:00 PM EDT Pulse 68 07/30/2023 2:00 PM EDT Temperature 36.7 C (98.1 F) 07/16/2023 9:34 AM EDT Respiratory Rate 16 07/16/2023 9:34 AM EDT Oxygen Saturation 99% 07/30/2023 2:00 PM EDT Inhaled Oxygen Concentration - - Weight 49 kg (108 lb) 07/30/2023 2:00 PM EDT Height - - Body Mass Index - - Plan of Treatment Health Maintenance Due Date Last Done Comments LIPID PANEL 1946 DEPRESSION SCREENING 1958 SMOKING Hx and SMOKELESS TOBACCO SCREENING 07/08/1959 HEPATITIS C SCREENING 1964 ZOSTER VACCINES (1 of 2) 1965 OSTEOPOROSIS SCREENING INITI AL (ONE-TIME) 07/08/2011 PNEUMOCOCCAL VACCINES (50+ years) (3 of 3 - PCV) 02/20/2019 02/20/2018, 05/11/2009 Adult Td,Tdap Booster 02/10/2021 02/10/2011 RSV VACCINE (1 - 1-dose 75+ series) 2021 COVID-19 VACCINE ( - 2023-2 5 season) 2024 HEPATITIS A VACCINES Aged Out No long er eligible based on patient's age to complete this topic HIB VACCINES Aged Out No longer eligi ble based on patient's age to complete this topic MENINGOCOCCAL VACCINES (ACWY) Aged Out No longer eligible based on patient's age to complete this topic MENINGOCOCCAL VACCINES (B) Aged Out N o longer eligible based on patient's age to complete this topic Medical Devices Not on file Insurance O MEDICARE REPLACEMENT [employer]INK [id number] [employer] MEDICARE REPLACEMENT MEDICARE REPLACEMENT MEDICARE REPLACEMENT MEDICARE REPLACEMENT [facility] SCO MEDICARE REPLACEMENT Care Teams Institutional Research Director Relationship Specialty Start Date End Date Mis Gutierrez MD [address] [place] [address] PCP - General Family Medicine 07/20/23 Rowena Becerril MD [address] [place] [id number] 01/17/23 Additional Source Comments The information contained in this document represents components of the legal health record. It is not the complete legal health record.[facility]
== END 2024-12-03 09:01 | disposition home or self-care (01) ==
LOC: HO.US 09:00
PROVIDERS: PCP Family Medicine; Visit Provider Nurse Practitioner Family
DX: N39.41 Urge incontinence (principal)
CPT/HCPCS: 76770

== ENCOUNTER → 2024-12-03 09:03 | Outpatient (BNV) | payer OTHER, SELFPAY | PROVIDERS: PCP Family Medicine; Visit Provider Nuclear Medicine | DX: N39.41 Urge incontinence (principal) | CPT/HCPCS: 76770 ==

== ENCOUNTER 2025-01-27 10:43 | Outpatient (AMB) | payer OTHER, SELFPAY ==
--- NOTE | 2025-01-27 10:45 | A.OFFVIS_ITS ---
Intake Visit Reasons: 3m/PVR/US Intake Note: Patient is present for 3M/PVR/US Urology Medication:MIRABEGRON,VITAMIN B12,POTASSIUM CHLORIDE Antibiotic Allergy:PENICILLINS Blood Thinner:NONE TODAY'S PVR: 0ML'S Data Analytics Chief Scientist Required: Yes Data Analytics Chief Scientist Services: Data Analytics Chief Scientist Present Data Analytics Chief Scientist Name: Luca [id number] Allergies black pepper Allergy (Intermediate, Verified 01/27/25 11:16) Rash codeine (CODEINE) Allergy (Intermediate, Verified 01/27/25 11:16) RASH ibuprofen (From MOTRIN) Allergy (Intermediate, Verified 01/27/25 11:16) RASH Penicillins (PENICILLINS) Allergy (Intermediate, Verified 01/27/25 11:16) RASH pineapple Allergy (Intermediate, Verified 01/27/25 11:16) Rash Medication List - Last Reconciled 01/27/25 by ELDA Carlton-IRINA albuterol sulfate 90 mcg/actuation 2 puffs inhalation Q4H PRN atorvastatin 80 mg PO QPM bisacodyl 10 mg (2 x 5 mg) PO BID 2 days calcium carbonate-vitamin D3 600 mg-10 mcg (400 unit) (Calcium 600 + D(3)) 1 tab PO BID cefuroxime axetil 250 mg PO BID 7 days cyanocobalamin (vitamin B-12) 1,000 mcg PO DAILY diphenhydramine HCl 25 mg PO BEDTIME ferrous gluconate 324 mg PO DAILY fluticasone propionate 50 mcg/actuation 1 spray intranasal BID PRN glycerin (child) 2 supp NM DAILY 7 days loratadine 10 mg PO DAILY PRN midodrine 5 mg PO TID mirabegron ER (Myrbetriq) 25 mg PO DAILY 30 days omeprazole 20 mg PO BID ondansetron 8 mg PO Q8H PRN polyethylene glycol 3350 17 grams PO DAILY polyethylene glycol 3350 (Miralax) 17 grams PO DAILY potassium chloride ER 10 mEq PO BID sennosides-docusate sodium 8.6-50 mg (Stool Softener-Stimulant Laxative) 8.6 - 50 tabs PO DAILY sucralfate 10 mL PO TID tramadol 50 mg PO TID PRN umeclidinium 62.5 mcg/actuation (Incruse Ellipta) 1 inh inhalation DAILY HPI Comments Details: Delmy is a very pleasant 79-year-old Czech-speaking female patient was Dr. Gutierrez. She has a past medical history of seizures, gastric lymphoma, lymphoma malignant large cell anemia, kidney disease, and asthma. She presents to the office today for follow-up. Of note, patient was seen approximately 6 months ago as a new patient for urge incontinence at which time a retroperitoneal ultra sound was ordered for further assessment evaluation in the patient was started on Myrbetriq. In discussion with the patient today she reports feeling Myrbetriq was extremely helpful in episodes of urinary urgency and frequency she had been experiencing in his requesting a refill. Recent retroperitoneal ultrasound results were reviewed with the patient today. 11/28 bilateral kidneys are small in size, small bilateral renal cysts. There is fullness to the right renal pelvis. The urinary bladder is unremarkable. Postvoid bladder volume 7 mL. In office urinalysis results reviewed with the patient today. PVR 0 mL. She does have a previous history of five vaginal deliveries is noteworthy. We discussed at length potential causes of urge incontinence. We also discussed further treatment options and risks and benefits of these treatment options. However, she would like to continue with Myrbetriq at this time. She discusses continuing to follow-up with oncology regarding her lymphoma. She also reports having followed up with Dr. Mitchell for Nephrology. She otherwise denies hematuria, dysuria, foul smelling urine, changes to urinary stream, flank pain, fever, and or chills. [facility] Medical History Seizure History of blood transfusion Gastric lymphoma Orthostasis Moderate protein malnutrition Lymphoma malignant, large cell Anemia Abnormal CT of the abdomen Stomach cancer Kidney disease Asthma Surgical History History of esophagogastroduodenoscopy (EGD) Hx of colonoscopy Tubal ligation status History of bladder surgery History of cholecystectomy Social History Household Members: Family Housing: Apartment Do you presently have visiting nurse or other home services: Yes Alcohol intake: former Patient Tobacco Use Status: Former Tobacco user Tobacco use type: Cigarette e-Cigarette/Vaping Use: Never Used Second Hand Smoke Exposure: No Advance Directives Date on File: 02/12/20 service: No 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al status: disabled 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: r handed Review of Systems Eyes Reports no additional complaints ENT Reports no additional complaints Card Reports as per HPI Resp Reports as per HPI GI Reports as per HPI Reports as per HPI Musc Reports no additional complaints Neuro Reports no additional complaints Psych Reports no additional complaints Endo Reports no additional complaints Sampson/Lymph Reports as per HPI Aller/Immun Reports as per HPI Physical Exam Const General: cooperative, healthy appearing, comfortable, no acute distress, well developed, alert and awake Orientation/consciousness: patient oriented x3 Limitations: language barrier HEENT Head: Yes normal to inspection, Yes normocephalic and Yes atraumatic Ears: hearing grossly normal bilaterally Eyes General: appearance normal, both eyes and all related structures Neck Neck: Yes normal visual inspection and Yes trachea midline Chest Chest palpation & inspection: normal inspection of the chest Resp Effort & Inspection: normal respiratory effort and able to speak in complete sentences Cardio Rate: regular rate GI Inspection: Yes normal to inspection General: Yes no CVA tenderness Back/Spine/Pelvis Back: no CVA tenderness Skin General skin exam: no rashes or lesions noted Neuro General: patient oriented x3 Extrem General: Yes normal to inspection Psych Appearance: grossly normal and well kempt Mental Status: mental status grossly normal Speech and movement: Normal speech and movement present and Clear speech present Affect: normal affect Attitude: cooperative Thought process: Normal thought process present Thought content: Normal thought content present Insight: Fair insight present (Psych) Judgement: Fair judgement present (Psych) Office Procedures Post Void Residual Post Residual Void Post Void Residual (PVR): 0 [id number] Void Residual by ultrasound Results Reviewed Results Reviewed: Date of Service: 12/03/24 Procedure(s): US retroperitoneal comp Findings: Right kidney normal echotexture, 8.4 cm length. 4 mm midpole cyst. Left kidney normal echotexture, 7.6 cm length. 5 mm upper pole cyst. There is fullness of the right renal pelvis. Normal color Doppler. Urinary bladder is unremarkable. Prevoid volume 275 mL. Postvoid volume 7 mL. Bilateral ureteral jets are visualized. IMPRESSION: Pelviectasis of the right kidney. Small size bilateral kidney. Assessment & Plan Assessment & Plan (1) Urinary incontinence, urge: Code(s): N39.41 - Urge incontinence Category: Medical (2) Renal cyst: Code(s): N28.1 - Cyst of kidney, acquired Category: Medical Plan In office urinalysis results reviewed with the patient today; as noted above. PVR 0 mL. Recent retroperitoneal ultrasound results reviewed with the patient today; as noted above. Continue Myrbetriq as discussed and prescribed; refill provided. She reports to be happy with current voiding parameters on Myrbetriq. We did discussed potential causes of stress/urge incontinence as well as further treatment options and risks and benefits of these treatment options. We discussed bladder triggers and irritants. All questions were answered. Follow-up in 6 months with PVR; or sooner with any issues, concerns, and or ques tions. Medications: Changed From mirabegron ER (Myrbetriq) 25 mg PO DAILY 30 days 30 tabs 3RF N32.81 - Overactive bladder, R35.1 - Nocturia, R39.15 - Urgency of urination To mirabegron ER (Myrbetriq) 25 mg PO DAILY 90 tabs 2RF 90 days N32.81 - Overactive bladder, R35.1 - Nocturia, R39.15 - Urgency of urination Discontinued cefuroxime axetil Discontinued Reason: Patient Completed Course 250 mg PO BID 7 days 14 tabs 0RF Patient Instructions: The patient had an opportunity to ask questions regarding the treatment plan. All questions were answered. Physical exam, labs, and imaging were discussed and reviewed in detail. As well as risks, benefits, and discussion of treatment choices. No major barriers to understanding were identified. The patient expressed understanding and agreement with the above treatment plan. The patient was made aware they should contact our office by phone for worsening of their current condition, the appearance of new symptoms, or with any questions or concerns. Compliance is encouraged with any medications and follow up testing that is ordered. It is a privilege to be allowed the opportunity to participate in? your urological care.? Again, if you have any questions or concerns If you have any questions or concerns please do not hesitate to contact me. The office is [phone]. This note is constructed using voice recognition software. While every effort has been made to ensure accuracy director of volunteer services errors may have been included. Yours sincerely, PETER Carlton Coding Level of Care Code Est Pt Level 3 (98910) Complex EM visit Add On G2211 Diagnoses Urinary incontinence, urge N39.41 Renal cyst N28.1 CPT Codes Post Residual Void - PVR CPT Code: 17158-Foyj Void Residual by ultrasound ([id number])
--- OUTSIDE RECORDS SUMMARY | 2025-01-27 13:11 | XMS_ITS | Clinical Summary ---
Author Organization [facility] Address [address] [place] [address] Phone Care Team Providers Care Machine Skiver Name Role Phone Rowena Becerril MD Unavailable Mis Gutierrez MD Primary Care Provider [phone] Allergies Active Allergy Reactions Criticality Noted Date [...] VACCINE (1 - 1-dose 75+ series) 2021 INFLUENZA VACCINE (#1) 2024 COVID-19 VACCINE ( - 2023-2 5 season) 2025 HEPATITIS A VACCINES Aged Out No long [...] topic Medical Devices Not on file [place] [address] [place] [address] SCO MEDICARE REPLACEMENT [employer]INK [id number] MEDICARE REPLACEMENT MEDICARE REPLACEMENT MEDICARE REPLACEMENT O [facility]IC[facility] RE[facility] Care Teams Machine Skiver Relationship Specialty Start Date End Date Mis Gutierrez MD [address] [place] [address] PCP - General Family Medicine 07/20/23 Rowena Becerril MD [address] [place] [address] 01/17/23 Additional Source Comments The information contained in this document represents components of the legal health record. It is not the complete legal health record.[facility]
--- OUTSIDE RECORDS SUMMARY | 2025-01-27 13:11 | XMS_ITS | Encounter Summary ---
Author Organization [employer] Address [address] [facility] [address] [place] [address] Care Team Providers Care Supervisor Decorating Name Role Phone Mis Gutierrez MD Primary Care Provider [phone] Reason for Visit * Reason Comments Med Refill Encounter Details Date Type Department Care Team ([facility] Contact Info) Description 10/30/2022 Refill [facility] [address] [place], [place] [phone] Mis Gutierrez MD [address] [place] [address] Social History Tobacco Use Types Packs/Day Years [...] as of this encounter Plan of Treatment Not on file documented as of this encounter Visit Diagnoses Not on filedocumented in this encounter Care Teams Supervisor Decorating Relationship Specialty Start Date End Date Mis Gutierrez MD [address] [place] [address] PCP - General Family Medicine 12/31/20 Rowena Becerril MD Oncology 03/13/24 Natalya Balderrama MD Gastroenterology 03/13/24 documented as of this encounter
--- OUTSIDE RECORDS SUMMARY | 2025-01-27 13:11 | XMS_ITS | Encounter Summary ---
Author Organization [employer] Address [address] [place] [address] Care Team Providers Care Celebrity Manager Name Role Phone Mis Gutierrez MD Primary Care Provider Encounter Details Date Type Department Care Team ([facility] Contact Info) Description 01/23/2025 Telephone [facility] [address] [place], [place] [phone] Ny Gatica, RN [address] [place], [place] [phone] Social History Tobacco Use Types Packs/Day Years [...] encounter Miscellaneous Notes * Telephone Encounter - Ny Gatica RN - 01/23/2025 11:49 AM EDT Fyi. TC to pt via BLS ID# [id number]. No answer. Lvm for pt to c/b and schedule ACCOUNTS PAYABLE COORDINATOR appt. documented in this encounter Plan of Treatment Not on file documented as of this encounter Visit Diagnoses Not on filedocumented in this encounter Additional Health Concerns Assessment Noted Time PHQ-9 Depression Total Score: 2 04/11/20 24 1:10 PM EST documented as of this encounter Care Teams Celebrity Manager Relationship Specialty Start Date End Date Mis Gutierrez MD [address] [place] [phone] PCP - General Family Medicine 12/31/20 Rowena Becerril MD Oncology 03/13/24 Natalya Balderrama MD Gastroenterology 03/13/24 documented as of this encounter
--- OUTSIDE RECORDS SUMMARY | 2025-01-27 13:11 | XMS_ITS | Encounter Summary ---
Author Organization [employer] Address [address] [place] [address] Care Team Providers Care Value Engineer Name Role Phone Mis Gutierrez MD Primary Care Provider [phone] Reason for Visit * Reason Onset Date Comments FYI 04/19/2023 Encounter Details Date Type Department Care Team ([facility] Contact Info) Description 04/19/2023 Telephone [facility] [address] [place], [place] [phone] Mis Gutierrez MD [address] [place] [address] FYI Social History Tobacco Use Types Packs/Day [...] If any questions please contact Vannesa at [phone]. documented in this encounter Plan of Treatment Not on file documented as of this encounter Visit Diagnoses Not on filedocumented in this encounter Additional Health Concerns Assessment Noted Time PHQ-9 Depression Total Score: 3 12/09/19 23 9:50 AM EDT documented as of this encounter Care Teams Value Engineer Relationship Specialty Start Date End Date Mis Gutierrez MD [address] [place] [address] PCP - General Family Medicine 12/31/20 Rowena Becerril MD Oncology 03/13/24 Natalya Balderrama MD Gastroenterology 03/13/24 documented as of this encounter
--- OUTSIDE RECORDS SUMMARY | 2025-01-27 13:11 | XMS_ITS | Clinical Summary ---
Author Organization [employer] Address [address] [facility] 7[address] [place] [address] Care Team Providers Care Inclinometer Tester Name Role Phone Mis Gutierrez MD Primary Care Provider [phone] Allergies Active Allergy Reactions Criticality Noted Date [...] 18 g 11 07/25/2 024 Active Umeclidinium Danese (Incruse Ellipta) 62.5 MCG/ACT aerosol powder Inhale [...] WITH BREAKFAST 90 tablet 1 025 Active cefuroxime (Ceftin) 250 MG tablet 025 Active traMADol (Ultram) 50 MG tabletIndications :Right hip pain TAKE 1 TABLET BY MOUTH EVERY 8 HOURS NEEDED FOR SEVERE PAIN 84 tablet 025 Active traMADol (Ultram) 50 MG tabletIndications :Right hip pain TAKE 1 TABLET BY MOUTH EVERY 8 HOURS NEEDED FOR SEVERE PAIN 84 tablet 025 2024 Discontinued Active Problems [...] of stomach 023 Overview (02/11/2023): Following with [facility] Heme/Onc Assessment & Plan (02/11/2023 10:12 AM [...] Given limited supply of oxy while at [facility] which provides relief of symptoms. Will send [...] that she had had a visit with [employer] and that documentation was sent last month, [...] Albuterol 108 (90 base) MCG/ACT inhaler Umeclidinium Danese (Incruse Ellipta) 62.5 MCG/ACT aerosol powder CKD (chronic kidney disease) stage 2, GFR 60-89 ml/min 03/01/2015 Assessment & Plan (10/10/2024 1:26 PM EDT): Patient has stable chronic kidney disease, as evidenced by recent nephrology follow-up with Dr. Mitchell. No medication changes were recommended by the microbiological analyst. Patient was advised to avoid ibuprofen, suggesting potential concerns about renal function. Recent ultrasound results are pending review. Plan: - Continue current medication regimen as per microbiological analyst's recommendation - Avoid ibuprofen and other NSAIDs - Follow up with microbiological analyst Dr. Mitchell as scheduled on the - [...] Encounters Date Type Department Care Team Description 01/23/2025 Telephone [facility] CHC MED & PEDS [address] [place], [place] [phone] Ny Gatica RN 01/22/[address] [facility] MED & PEDS [address] [place], [place] [phone] Mis Gutierrez MD Right hip pain 11/21/2024 Telephone [facility] MEDICINE [address] [place] [address] Mis Gutierrez MD ER Follow-up 11/21/2024 Refill [facility] CHC MED & PEDS [address] [place] [address] Mis Gutierrez MD Right hip pain 11/20/2024 [...] Influenza, Unspecified 03/31/2014,02/10/2011 Pfizer Covid-19 Vaccine 12+ 09/27/2021, 1,12/03/2020 Pfizer Covid-19 Vaccine 12+ gerber-sucrose ([place] Cap) [...] C Screening 1963 COVID-19 Vaccine ( season) 2025 09/27/2021, 09/27/2021, 12/24/2020, Additional history exists Influenza Vaccine (#1) 2025 , 03/20/2022, 02/20/2018, Additional history exists Alcohol/Substance Use Screening 04/11/2025 04/11/2024 Depression Screening 04/11/2025 04/11/2024, 04/11/20 24 DTaP/Tdap/Td Vaccines (2 - Td or Tdap) [...] Procedure Name Priority Date/Time Associated Diagnosis Comments US RETROPERITONEAL COMPLETE Routine 12/03/2024 1:23 PM EDT BLOOD CULTURE (SECOND) Routine 7:24 PM EDT BLOOD CULTURE (FIRST) Routine 11/20/2024 7:07 PM EDT HIGH SENSITIVITY TROPONIN I Routine 11/20/2024 4:49 PM EDT CULTURE, URINE, ROUTINE Routine 11/21/19 4:41 PM EDT URINALYSIS, COMPLETE, WITH REFLEX TO CULTURE Routine 11/20/2024 4:25 PM EDT CBC WITH AUTO DIFFERENTIAL Routine 11/20/2024 1:47 PM EDT HIGH SENSITIVITY TROPONIN I Routine 11/20/2024 1:11 PM EDT MAGNESIUM Routine 11/20/2024 1:11 PM EDT COMPREHENSIVE METABOLIC PANEL Routine 11/20/2024 1:11 PM EDT LIPID PANEL, STANDARD Routine 07/06/2021 9:26 AM EST from Last 3 Months or Most Recently Relevant to Health Maintenance Results * US Retroperitoneal Complete (12/03/2024 1:23 PM EDT) Anatomical Region Laterality Modality Ultrasound 12/03/2024 1:23 PM EDT Narrative 12/03/2024 1:24 PM EDT [place] [address] Ultrasound Report Signed Patient: Delmy Ann MR#: [id number] 76 : 1945 Acct:[id number] Age/Sex: 79 / F ADM Date: 12/03/24 Loc: HO.US Attending Dr: Jacqui GREEN Ordering Physician: Jacqui Ahn Date of Service: 12/03/24 Procedure(s): US retroperitoneal comp Accession Number(s): [id number] cc: Jacqui Ahn; Mis Gutierrez MD CLINICAL HISTORY: N39.41 - Urge incontinence US Renal Comparison: CT/SR - CT ABDOMEN PELVIS W IV CON - 09/03/24 12:37 EDT Findings: Right kidney normal echotexture, 8.4 cm length. 4 mm midpole cyst. Left kidney normal echotexture, 7.6 cm length. 5 mm upper pole cyst. There is fullness of the right renal pelvis. Normal color Doppler. Urinary bladder is unremarkable. Prevoid volume 275 mL. Postvoid volume 7 mL. Bilateral ureteral jets are visualized. IMPRESSION: Pelviectasis of the right kidney. Small size bilateral kidney. This document has been electronically signed by: Galo Gutierrez MD on 12/03/2024 13:23:02 Dictated By: Galo Gutierrez MD Signed By: <Electronically signed by Galo Gutierrez MD in OV> 12/03/24 1324 DD/ 1323 TD/TT: 12/03/24 1323 Spray Worker: Procedure Note Donotuseinterpreter, Image - 12/03/[address] [address] Ultrasound Report Signed Patient: Delmy Ann LMR#: [id number] 76 : 1945cct:[id number] Age/Sex: 79 / FADM Date: 12/03/24 Loc: HO.US Attending Dr: Jacqui GREEN Ordering Physician: Jacqui Ahn Date of Service: 12/03/24 Procedure(s): US retroperitoneal comp Accession Number(s): [id number] cc: Jacqui Ahn; Mis Gutierrez MD CLINICAL HISTORY: N39.41 - Urge incontinence US Renal Comparison: CT/SR - CT ABDOMEN PELVIS W IV CON - 09/03/24 12:37 EDT Findings: Right kidney normal echotexture, 8.4 cm length. 4 mm midpole cyst. Left kidney normal echotexture, 7.6 cm length. 5 mm upper pole cyst. There is fullness of the right renal pelvis. Normal color Doppler. Urinary bladder is unremarkable. Prevoid volume 275 mL. Postvoid volume 7 mL. Bilateral ureteral jets are visualized. IMPRESSION: Pelviectasis of the right kidney. Small size bilateral kidney. This document has been electronically signed by: Galo Gutierrez MD on 12/03/2024 13:23:02 Dictated By: Galo Gutierrez MD Signed By: <Electronically signed by Galo Gutierrez MD in OV> 12/03/24 1324 DD/ 1323 TD/TT: 12/03/24 1323 Spray Worker: [facility] External Provider IMG US PROCEDURES Final Result * Blood Culture (Second) (11/20/2024 7:24 PM EDT) Blood Venous blood specimen / Unknown 11/20/2024 7:24 PM EDT 11/20/2024 7:30 PM EDT Comment:Blood Narrative [facility] - 11/25/2024 9:30 PM EDT Blood Culture (Second) No growth after 5 days. Specimen Source: Blood Generic External Data Provider LAB MICROBIOLOGY - GENERAL ORDERABLES Final Result Performing Organization Address [facility] Co de Phone Number [facility] [address] [place] [phone] * Blood Culture (First) (11/20/2024 7:07 PM EDT) Blood Venous blood specimen / Unknown 11/20/2024 7:07 PM EDT 11/20/2024 7:27 PM EDT Comment:Blood Narrative [facility] - 11/25/2024 9:27 PM EDT Blood Culture (First) No growth after 5 days. Specimen Source: Blood Generic External Data Provider LAB MICROBIOLOGY - GENERAL ORDERABLES Final Result Performing Organization Address [facility] de Phone Number [facility] [address] [place] [phone] * High Sensitivity Troponin I (11/20/2024 4:49 PM EDT) Only the most recent of2 resultswithin the time period is included. TROPONIN I HIGH SENSITIVITY 4.9 <3.5 - 17.0 ng/L [facility] Comment:The Valenzuela high sens itivity Troponin-I results should beused in conjunction with other diagnostic information suchas ECG, clinical observations and information, and patientsymptoms to aid in the diagnosis of [place]. 11/20/2024 4:49 PM EDT 11/20/2024 4:52 PM EDT Generic External Data Provider LAB BLOOD ORDERAB LES Final Result Performing Organization Address [facility] Co de Phone Number [facility] [address] [place] [phone] * Culture, Urine, Routine (11/20/2024 4:41 PM EDT) Urine Urine specimen obtained by clean catch procedure / Unknown 11/20/2024 4:41 PM EDT 11/20/2024 4:41 PM EDT Comment:UACC Narrative [facility] - 11/22/2024 10:42 AM EDT Urine Culture Report Result Urine Culture 10,000 to 50,000 cfu/ml Urine Culture Mixed bacterial jorge a characteristic of Urine Culture urogenital contamination. Specimen Source: Urine clean catch us Generic External Data Provider LAB MICROBIOLOGY - GENERAL ORDERABLES Final Result [facility] [address] [place] [phone] * (ABNORMAL) Urinalysis, Complete, with Reflex to Culture (11/20/2024 4:25 PM EDT) Color Urine Yellow [facility] Appearance Urine Clear [facility] PH 6.5 5.0 - 9.0 [facility] Glucose Urine UA Negative Negative mg/dL [facility] Urine Blood Negative Negative [facility] Specific [place] - Urine 1.010 1.005 - 1.025 [facility] Urine Protein Negative Neg-Trace mg/dL [facility] Urine Ketones Negative Negative mg/dL [facility] Nitrite Urine Negative Negative [facility] Leukocyte Esterase Urine Large (3+)(A) Negative [facility] RBC Urine 0-2 0 - 2 /HPF [facility] Urine WBC 21-50(A) 0 - 5 /HPF [facility] Urine Squamous Epithelial Cell 0-2 0 - 2 /HPF [facility] Urine Bacteria None Seen None Seen [facility] Hyaline Casts, Urine 0-2 0 - 2 /LPF [facility] 11/20/2024 4:25 PM EDT 11/20/2024 4:30 PM EDT Narrative [facility] - 11/20/2024 4:40 PM EDT [id number], Clean Catch us Generic External Data Provider LAB URINE ORDERAB LES Final Result [facility] [address] [place], [place] [phone] * (ABNORMAL) CBC auto differential (11/20/2024 1:47 PM EDT) White Blood Count 5.5 4.8 - 10.8 X10*3/uL [facility] Red Blood Count 3.39(L) 4.20 - 5.50 X10*6/uL [facility] Hemoglobin 10.4(L) 12.0 - 16.0 g/dl [facility] Hematocrit 31.2(L) 37.0 - 47.0 % [facility] Mean Corpuscular Volume 92.0 80.0 - 98.0 fL [facility] Mean Corpuscular Hemoglobin 30.7 27.0 - 33.0 pg [facility] Mean Corpuscular HGB Conc 33.3 31.0 - 35.0 g/dl [facility] Red Cell Distribution Width 14.7 11.0 - 16.0 % [facility] Platelet Count 188 160 - 400 X10*3/uL [facility] Mean Platelet Volume 9.6 9.4 - 12.3 fL [facility] Neutrophils Percent Auto 62.5 45 - 73 % [facility] Imm Gran Pct Auto 0.4 0.0 - 0.4 % [facility] Lymphocytes Percent Auto 23.6 20 - 40 % [facility] Monocytes Percent Auto 10.0 2 - 11 % [facility] Eosinophils Percent Auto 3.1 0 - 4 % [facility] Basophils Percent Auto 0.4 0 - 2 % [facility] NRBC Pct Auto 0.0 0.0 - 0.2 /100WBC [facility] Neutrophils Absolute Auto 3.5 2.0 - 8.3 x10*3/uL [facility] Imm Gran Abs Auto 0.02 0.00 - 0.03 X10*3/uL [facility] Lymphocytes Absolute Auto 1.3 1.2 - 4.9 X10*3/uL [facility] Monocytes Absolute Auto 0.6 0.1 - 1.2 X10*3/uL [facility] Eosinophils Absolute Auto 0.2 0.0 - 0.4 X10*3/uL [facility] Basophils Absolute Auto 0.0 0.0 - 0.2 X10*3/uL [facility] NRBC Abs Auto 0.000 0.0 - 0.012 X10*3/uL [facility] 11/20/2024 1:47 PM EDT 11/20/2024 1:53 PM EDT Generic External Data Provider LAB BLOOD ORDERAB LES Edited Result - Final Performing Organization Address [facility]/ZIP Co de Phone Number [facility] [address] [place] [phone] * Magnesium (11/20/2024 1:11 PM EDT) Pathologist [facility] Magnesium 2.2 1.6 - 2.6 mg/dL [facility] 11/20/2024 1:11 PM EDT 11/20/2024 1:14 PM EDT Generic External Data Provider LAB BLOOD ORDERAB LES Final Result Performing Organization Address [facility] Co de Phone Number [facility] [address] [place] [phone] * (ABNORMAL) Comprehensive Metabolic Panel (11/20/2024 1:11 PM EDT) Pathologist [facility] Sodium 143 135 - 145 mmol/L [facility] Potassium 4.6 3.3 - 5.1 mmol/L [facility] Chloride 110(H) 96 - 108 mmol/L [facility] Carbon Dioxide 26 22 - 29 mmol/L [facility] Anion Gap 12 12 - 20 [facility] Urea Nitrogen (BUN) 23(H) 9 - 16 mg/dL [facility] Creatinine, Serum 1.59(H) 0.5 - 1.4 mg/dL [facility] Creatinine Clr Calc Pharmacy 25.2 [facility] Comment:Provided height and weight: 162.56 cm,55 kg.eGFR (calculated from the MDRD study equation) and eCrCl(calculated from the Cockcroft-Gault equation) are based ondifferent parameters and may not yield comparable results.If eCrCl result is absurd, please check patient'sheight/weight. Estimated Glomerular Filt Rate 31 [facility] Comment:Chronic Kidney Disea se: Estimated GFR < 60 mL/min/1.99l1Trqqoe Kidney Disease: Estimated GFR < 15 mL/min/1.73m2 Glucose 96 60 - 115 mg/dL [facility] Calcium 8.6 8.4 - 10.2 mg/dL [facility] Bilirubin, Total 0.2 0.0 - 1.0 mg/dL [facility] Aspartate Amino Transferase 24 5 - 31 U/L [facility] Alanine Aminotransferase 14 0 - 31 U/L [facility] Total Protein 6.4(L) 6.5 - 8.0 g/dL [facility] Albumin Level 3.9 3.5 - 5.0 g/dL [facility] Alkaline Phosphatase 121(H) 39 - 117 U/L [facility] 11/20/2024 1:11 PM EDT 11/20/2024 1:14 PM EDT us Generic External Data Provider LAB BLOOD ORDERAB LES Final Result [facility] [address] [place] [phone] * (ABNORMAL) LIPID PANEL, STANDARD (07/06/2021 [...] factors. LDL-C is now calculated using the Lorna calculation, which is a validated novel method providing better accuracy than the Friedewald equation in the estimation of LDL-C. Sánchez DIAMOND et al. TERRENCE. 2013;310(19): 3835-7260 (http://education.[employer]/faq/IBC861) Non-HDL Cholesterol 202(H) <130 mg/dL (calc) [facility] [...] [facility] [address] from Last 3 Months or Most Recently Relevant to Health Maintenance Insurance [facility] [employer] (O D-SNP) [place] [id number] [id number] Care Teams Inclinometer Tester Relationship Specialty Start Date End Date Mis Gutierrez MD [address] [place] [phone] PCP - General Family Medicine 12/31/20 Rowena Becerril MD Oncology 03/13/24 Natalya Balderrama MD Gastroenterology 03/13/24
--- OUTSIDE RECORDS SUMMARY | 2025-01-27 13:11 | XMS_ITS | Encounter Summary ---
Author Organization [employer] Address [address] [place] [address] Care Team Providers Care Lumber Trimmer Name Role Phone Mis Gutierrez MD Primary Care Provider [phone] Reason for Visit * Reason Onset Date Comments Med Refill 03/15/2023 Encounter Details Date Type Department Care Team (Late st Contact Info) Description 03/15/2023 Telephone [facility] [address] [place] [address] Mis Gutierrez MD [address] [place] [address] Med Refill Social History Tobacco Use Types [...] documented as of this encounter Care Teams Lumber Trimmer Relationship Specialty Start Date End Date Mis Gutierrez MD [address] [place] [address] PCP - General Family Medicine 12/31/20 Rowena Becerril MD Oncology 03/13/24 Natalya Balderrama MD Gastroenterology 03/13/24 documented as of this encounter
--- OUTSIDE RECORDS SUMMARY | 2025-01-27 13:11 | XMS_ITS | Encounter Summary ---
Author Organization [employer] Address [address] [place] [address] Care Team Providers Care Front Desk Worker Name Role Phone Mis Gutierrez MD Primary Care Provider [phone] Reason for Visit * Reason Comments Med Refill Encounter Details Date Type Department Care Team ([facility] Contact Info) Description 01/22/2025 Refill [facility] MED & PEDS [address] [place], [place] [phone] Mis Gutierrez MD [address] [place] [address] Right hip pain Social History Tobacco Use Types Packs/Day Years [...] your housing situation today? I have geovanny deepak 12/26/[address] you li [...] as of this encounter Visit Diagnoses Diagnosis Right hip pain Pain in joint, pelvic region and thigh documented in this encounter Additional Health Concerns Assessment Noted Time PHQ-9 Depression Total Score: 2 04/11/20 24 1:10 PM EST documented as of this encounter Care Teams Front Desk Worker Relationship Specialty Start Date End Date Mis Gutierrez MD [address] [place] [phone] PCP - General Family Medicine 12/31/20 Rowena Becerril MD Oncology 03/13/24 Natalya Balderrama MD Gastroenterology 03/13/24 documented as of this encounter
--- OUTSIDE RECORDS SUMMARY | 2025-01-27 13:11 | XMS_ITS | Encounter Summary ---
Author Organization [employer] Address [address] [facility] [address]t [place] [address] Care Team Providers Care Baggagemaster Name Role Phone Mis Gutierrez MD Primary Care Provider [phone] Reason for Visit * Reason Comments Med Refill Encounter Details Date Type Department Care Team ([facility] st Contact Info) Description 07/21/2022 Refill [facility] MED & PEDS [address] [place], [place] [phone] Iveth Gomez MD [address] [place] [address] Gastroesophageal reflux disease, unspecified whether esophagitis present [...] Primary documented in this encounter Care Teams Baggagemaster Relationship Specialty Start Date End Date Mis Gutierrez MD [address] [place] [address] PCP - General Family Medicine 12/31/20 Rowena Becerril MD Oncology 03/13/24 Natalya Balderrama MD Gastroenterology 03/13/24 documented as of this encounter
--- OUTSIDE RECORDS SUMMARY | 2025-01-27 13:11 | XMS_ITS | Encounter Summary ---
Author Organization [employer] Address [address] [facility] [address] [place] [address] Care Team Providers Care Import/Export Freight Forwarder Name Role Phone Mis Gutierrez MD Primary Care Provider Reason for Visit * Reason Comments Med Refill Encounter Details Date Type Department Care Team ([facility] Contact Info) Description 01/08/[address] [facility] MED & PEDS [address] [place], [place] [phone] Mis Gutierrez MD [address] [place] [address] Gastroesophageal reflux disease, unspecified whether esophagitis present [...] documented as of this encounter Care Teams Import/Export Freight Forwarder Relationship Specialty Start Date End Date Mis Gutierrez MD [address] [place] [address] PCP - General Family Medicine 12/31/20 Rowena Becerril MD Oncology 03/13/24 Natalya Balderrama MD Gastroenterology 03/13/24 documented as of this encounter
== END 2025-01-27 11:21 | disposition home or self-care (01) ==
LOC: HO.HUSH 10:44
PROVIDERS: PCP Family Medicine; Visit Provider Nurse Practitioner Family
DX: N39.41 Urge incontinence (principal); N28.1 Cyst of kidney, acquired; Z13.9 Encounter for screening, unspecified
CPT/HCPCS: 99213; G2211

== ENCOUNTER → 2025-01-27 10:43 | Outpatient (BNVA) | payer OTHER, SELFPAY | PROVIDERS: PCP Family Medicine; Visit Provider Nurse Practitioner Family | DX: N39.41 Urge incontinence (principal); N28.1 Cyst of kidney, acquired | CPT/HCPCS: 51798; 81003; 99212 ==